=== PATIENT | male | born 1930 | race Caucasian/White ===

== ENCOUNTER 2016-03-14 11:58 | Inpatient (IN) | payer OTHER, MEDICARE ==
[~2016-03-14] VITALS: Ht 182.9 cm; Wt 80.0 kg
[~2016-03-14 11:58] MED LIST: ASPCH81X PO; CPR250 PO; DTR5 PO; FLM4 PO; FLUO20CA36 PO; GLIP10TA10 PO; LOSA1TAB PO; METO50TA16 PO; PANT40TA PO; PHEN-1043 PO; PRS5 PO; PRVC/40 PO; RMRS/45 PO; VITAMIN B12 SC
[2016-03-14 12:55] LABS: BASO % 0.1 %; BASO ABS # 0.01 K/uL (0-0.2); COMPLETE YES; EOS % 0.2 %; HEMATOCRIT 31.9 % (42-52); IG% 0.5 %; LYMPH % 8.6 %; LYMPH ABS # 0.84 K/uL (1.2-3.4); MEAN CELL VOLUME 88.6 fL (80-100); MEAN CORPUSCULAR HGB CONC 33.9 g/dl (32-36); MEAN PLATELET VOLUME 11.7 fL (7.4-10.4); MONO % 7.3 %; NEUT % 83.3 %; PLATELET COUNT 127 K/uL (130-400)
[2016-03-14] MEDS ORDERED: SODIUM CHLORIDE 0.9% 1000ML 1,000 ML IV ONE (12:59)
[2016-03-14] MEDS ORDERED: LEVAQUIN 750MG / 150ML D5W IV STA (12:59)
[2016-03-14] MEDS ORDERED: SODIUM CHLORIDE 0.9% 1000ML 1,000 ML IV STA (12:59)
[2016-03-14 13:18] LABS: BUN/CREATININE RATIO 21.2 (10-20); CALCIUM 8.3 mg/dl (8.5-10.1); CREATININE 2.5 mg/dl (0.60-1.40)
--- NOTE | 2016-03-14 13:19 | DIAGNOSTIC IMAGING REPORT ---
SINGLE VIEW CHEST CLINICAL HISTORY: Generalized weakness. Illness. FINDINGS: An AP, portable, upright chest radiograph is compared to study dated 02/26/2016. The examination is degraded by portable technique and patient rotation. The patient is status post midline sternotomy. The heart is enlarged and there is atherosclerotic calcification of the thoracic aorta. The pulmonary vasculature is noncongested. Emphysema is again suspected. No airspace consolidation, pleural effusion, or pneumothorax is seen. The bony thorax is grossly intact. IMPRESSION: Cardiac enlargement with no acute cardiopulmonary abnormality. Electronically signed by: Billy Palacio M.D. 03/14/2016 1:16 PM
[2016-03-14 13:28] LABS: ALB/GLOB RATIO 0.7 (0.9-2); CKMB/CK RATIO 1.6 (0-3.0); THYROID STIMULATING HORMONE 1.02 uIu/ml (0.300-4.500)
[2016-03-14] MEDS ORDERED: THIA100T11 PO (13:49)
--- NOTE | 2016-03-14 14:30 | DIAGNOSTIC IMAGING REPORT ---
CT SCAN OF THE ABDOMEN AND PELVIS WITHOUT IV CONTRAST CLINICAL HISTORY: Flank pain. COMPARISON STUDY: Abdominal CT dated 02/25/2016 and 02/21/2015. TECHNIQUE: CT scan of the abdomen and pelvis is performed from the lung bases to the proximal femora. Images are reviewed in the axial, sagittal, and coronal planes. IV contrast was not administered for this examination as per the referring clinician. Oral contrast was utilized. Automated dose control exposure was utilized. CT DOSE: 1198.01 mGy.cm FINDINGS: Lung bases: Midline sternotomy wires are noted. The heart is top normal in size and without pericardial effusion. The coronary arteries are densely calcified. There is diminished attenuation of the cardiac blood pool as compared to the myocardium suggesting anemia. There is dependent atelectasis. Chronic interstitial changes are present the lung bases. There is no airspace consolidation seen typical for pneumonia or pleural effusion. There is a small hiatal hernia. Liver: The unenhanced liver is enlarged, measuring 20.5 cm in length. The liver is otherwise normal in contour and attenuation. There is no intrahepatic biliary ductal dilatation. Gallbladder: Unremarkable. Spleen: Normal in size and attenuation. Pancreas: The unenhanced pancreas is moderately atrophic and grossly unremarkable. Adrenal glands: Unremarkable. Kidneys: The unenhanced kidneys are atrophic. A left ureteral stent is new from previous and in appropriate position. No left ureteral calculi are identified along the course of the stent. The previously obstructing 1.6 cm calculus has been pushed back into the left renal pelvis and is seen on axial image #194. There is moderate left hydroureteronephrosis. This has minimally decreased from 02/25/2016. There are at least 7 additional nonobstructing left renal calculi measuring up to 8 mm. There is mild to moderate right hydroureteronephrosis, new from 02/25/2016. The distal right ureteral calculi seen on the prior examination are no longer present. There are at least 6 additional nonobstructing right renal calculi measuring up to 5 mm. A 5.4 cm exophytic cyst arises from the upper pole of the right kidney. Urothelial thickening within the renal pelvis bilaterally is nonspecific and may be related to instrumentation/an indwelling catheter on the left. Abdominal vasculature: The abdominal aorta is normal in course and caliber noting advanced atherosclerotic calcification. Bowel: The small bowel and colon are normal in course and caliber. There is moderate colonic diverticulosis without CT evidence of acute diverticulitis. The appendix is not identified and reported surgically absent. Peritoneum: There is no intraperitoneal free air or abdominal ascites. There is a small fat-containing umbilical hernia. Lymphadenopathy: None. Pelvic viscera: The prostate gland is enlarged and heterogeneous, measuring up to 5.8 cm in transverse diameter. There is median lobe hypertrophy. The bladder is normal as visualized. No bladder calculi are identified. There is a moderate fat-containing left inguinal hernia. Skeletal structures: The skeletal structures are osteopenic. There is moderate lumbosacral spondylosis as well as mild scoliosis. Degenerative changes also seen in the sacroiliac joints. Anterolisthesis is present at L4-L5. No lytic or blastic lesions are seen. IMPRESSION: 1. A left ureteral stent is new from previous and in appropriate position. No calculi are identified along the course of the stent. 2. The 1.6 cm obstructing calculus seen in the left proximal ureter on 02/25/2016 has been pushed back into the left renal pelvis. Additional nonobstructing left renal calculi have not significantly changed. 3. There is moderate left hydroureteronephrosis, modestly improved from 02/25/2016. Correlate clinically for evidence of stent dysfunction. 4. There is mild to moderate right hydroureteronephrosis, new from the 02/25/2016 examination. Distal right ureteral calculi seen previously are no longer present. Hydronephrosis may be related to ureteral edema/stricture post procedure. Clinical correlation will be required. 5. Additional bilateral nonobstructing right renal calculi are grossly unchanged. 6. Prostatomegaly. The bladder is normal as visualized and no bladder calculi are identified. 7. Moderate colonic diverticulosis without CT evidence of acute diverticulitis. 8. Additional changes as above. Electronically signed by: Billy Palacio M.D. 03/14/2016 2:28 PM
[2016-03-14 14:55] LABS: URINE APPEARANCE CLOUDY (CLEAR); URINE BILIRUBIN NEG (NEG); URINE COLOR YELLOW; URINE NITRITE POS (NEG); URINE PH 5.5 (4.5-7.5); URINE SPECIFIC GRAVITY 1.005 (1.000-1.030); UROBILINOGEN NEG (NEG); ZZUR CULT IF INDIC CLEAN CATCH YES
[2016-03-14 14:58] LABS: MANUAL MICROSCOPIC REQUIRED? NO; REVIEW REQ? NO
[2016-03-14] MEDS ORDERED: MAGNESIUM HYDROXIDE SUSP 30 ML UDC PO PRN (15:15)
[2016-03-14] MEDS ORDERED: DEXTROSE 50% 50 ML SYR IV PRN (15:45)
[2016-03-14] MEDS ORDERED: GLUCOSE 40% GEL 15 GM TUBE PO PRN (15:45)
[2016-03-14] MEDS ORDERED: GLUCOSE 10 TABS/TUBE PO PRN (15:45)
[2016-03-14] MEDS ORDERED: GLUCAGON FOR INJ 1 MG VIAL SQ PRN (15:45)
--- NOTE | 2016-03-14 16:17 | History and Physical ---
History & Physical Date & Time of Service: Mar 14, 2016 at 15:35 Chief Complaint: General Illness Primary Care Physician: Vinh Montano D.O. History of Present Illness This is an 86 yo m with a h/o nephrolithiasis resulting in LA that is presenting to us with generalized weakness and dehydration. He notes that just after [place] he started to feel 'off" and generally feeling dehydrated. He does not feel like he had any change in appetite or the amount he was drinking. He also notes a sense of uneasiness. He mentions he had fallen onto his knees two days ago and instead of trying to get up, instead lay on the floor and fell asleep. He did not injury his head at any time. Today, he denies any N&V and mentions that his lethargy seems improved since receiving fluids. He was recently admitted to [facility] for La in the presence of nephrolithiasis and hydronephrosis. Bilateral urethral stents were placed during the admission. Since this scope and stent placement he has had significant worsening of his incontinence and painful urination. He notes he did have BL incontinence however it is now it is more constant. No hematuria that he could note. During the admission he was treated with Cipro and d/c with Flomax. He has been compliant with the flomax. Dr Eubanks was called while he was in the ED and plan is to scope in the am. He was originally admitted in Dec with a Cr of 2.9 which improved to a 2.1. On this admission he currently has a Cr of 2.5 He has a past medical history which also include a triple bypass (last stress echo in summer 2015, presumed normal, done with [facility]). He also has a h/o of DM not insulin controlled. 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 Daughter is available however she is a film processor and is not home very often. Past Medical/Surgical History Medical Problems: (1) Coronary artery disease Status: Chronic (2) Diabetes Status: Chronic (3) Hypertension Status: Chronic Surgical Problems: (1) S/P CABG (coronary artery bypass graft) Status: Resolved Family History Myocardial infarction FATHER MOTHER No Family History of: Kidney stones Social History Smoking Status: Former Smoker (quit 20 years prior) Smokeless Tobacco Use: No Alcohol Use: none Drug Use: none Marital Status: Housing status: lives with family Occupational Status: retired Immunizations History of Influenza Vaccine: Yes History of Tetanus Vaccine?: No History of Pneumococcal: Yes History of Hepatitis B Vaccine: No Multi-Drug Resistant Organisms History of MDRO: No Allergies Coded Allergies: Penicillins (Verified Allergy, Mild, MARGINAL, 02/26/16) MARGINAL Home Medications Scheduled Aspirin (Aspirin Chewable), 81 MG PO QAM Fluoxetine HCl (Fluoxetine HCl), 40 MG PO DAILY Glipizide (Glipizide), 10 MG PO QAM Losartan Potassium (Cozaar), 25 MG PO QPM Metoprolol Tartrate (Lopressor) (Lopressor), 0.5 TAB PO Q2D Metoprolol Tartrate (Lopressor) (Lopressor), 0.25 MG PO Q2D Mirtazapine (Mirtazapine), 45 MG PO HS Pantoprazole (Protonix), 40 MG PO QAM Pravastatin Sod (Pravastatin Sodium), 1 TAB PO QPM Tamsulosin HCl (Tamsulosin HCl), 0.4 MG PO BID Thiamine Hcl (Vitamin B-1), 1 TAB PO DAILY Review of Systems Constitutional: No fever Eyes: No worsening of vision ENT: + hearing loss (BL [place]) Respiratory: No cough, No dyspnea on exertion, No shortness of breath Cardiovascular: No chest pain Abdomen: No constipation, No diarrhea, No nausea, No pain, No vomiting Musculoskeletal: No joint pain, No muscle pain Genitourinary - Male: + dysuria, + urinary frequency, + urinary incontinence, No hematuria Neurologic: + weakness, No memory loss Endocrine: + fatigue Integumentary: No rash Physical Exam Vital Signs Date Time Temp Pulse Resp B/P Pulse Ox O2 Delivery O2 Flow Rate FiO2 03/14/16 14:37 77 18 145/71 98 Room Air 03/14/16 14:06 76 18 125/61 96 Room Air 03/14/16 13:42 78 18 121/61 96 Room Air 03/14/16 13:06 77 18 114/62 96 Room Air 03/14/16 12:35 83 18 125/62 96 Room Air 03/14/16 12:28 81 03/14/16 12:09 97 Room Air 03/14/16 12:03 37.8 83 18 114/58 97 Room Air General Appearance: WD/WN, no apparent distress Head: normocephalic, atraumatic Eyes: normal inspection ENT: normal ENT inspection Neck: supple Respiratory/Chest: lungs clear, normal breath sounds, no respiratory distress, no accessory muscle use Cardiovascular: regular rate, rhythm, no murmur Abdomen/GI: normal bowel sounds, non tender, soft, + distended Back: normal inspection, no CVA tenderness Extremities/Musculoskelatal: no calf tenderness, no pedal edema Neurologic/Psych: alert, normal mood/affect, oriented x 3 Skin: normal color, warm/dry, no rash Lymphatic: no adenopathy Diagnostics Laboratory Results Results Past 24 Hours Test 03/14/16 12:36 03/14/16 13:16 03/14/16 13:44 03/14/16 14:04 Range/Units White Blood Count 9.80 4.8-10.8 K/uL Red Blood Count 3.60 4.7-6.1 M/uL Hemoglobin 10.8 14.0-18.0 g/dL Hematocrit 31.9 42-52 % Mean Corpuscular Volume 88.6 80-100 fL Mean Corpuscular Hemoglobin 30.0 25-34 pg Mean Corpuscular Hemoglobin Concent 33.9 32-36 g/dl Platelet Count 127 130-400 K/uL Mean Platelet Volume 11.7 7.4-10.4 fL Neutrophils (%) (Auto) 83.3 % Lymphocytes (%) (Auto) 8.6 % Monocytes (%) (Auto) 7.3 % Eosinophils (%) (Auto) 0.2 % Basophils (%) (Auto) 0.1 % Neutrophils # (Auto) 8.16 1.4-6.5 K/uL Lymphocytes # (Auto) 0.84 1.2-3.4 K/uL Monocytes # (Auto) 0.72 0.11-0.59 K/uL Eosinophils # (Auto) 0.02 0-0.5 K/uL Basophils # (Auto) 0.01 0-0.2 K/uL RDW Standard Deviation 45.9 36.4-46.3 fL RDW Coefficient of Variation 14.1 11.5-14.5 % Immature Granulocyte % (Auto) 0.5 % Immature Granulocyte # (Auto) 0.05 0.00-0.02 K/uL Sodium Level 134 136-145 mmol/L Potassium Level 4.0 3.5-5.1 mmol/L Chloride Level 101 98-107 mmol/L Carbon Dioxide Level 22 21-32 mmol/L Anion Gap 11.0 3-11 mmol/L Blood Urea Nitrogen 53 7-18 mg/dl Creatinine 2.50 0.60-1.40 mg/dl Est Creatinine Clear Calc Drug Dose 24.1 ml/min Estimated GFR () 26.3 Estimated GFR (Non- 22.7 BUN/Creatinine Ratio 21.2 10-20 Random Glucose 227 70-99 mg/dl Calcium Level 8.3 8.5-10.1 mg/dl Total Bilirubin 0.5 0.2-1 mg/dl Aspartate Amino Transf (AST/SGOT) 86 15-37 U/L Alanine Aminotransferase (ALT/SGPT) 43 12-78 U/L Alkaline Phosphatase 70 45-117 U/L Total Creatine Kinase 140 39-308 U/L Creatine Kinase MB 2.3 0.5-3.6 ng/ml Creatine Kinase MB Ratio 1.6 0-3.0 Troponin I 0.015 0-0.045 ng/ml Total Protein 6.1 6.4-8.2 gm/dl Albumin 2.5 3.4-5.0 gm/dl Globulin 3.6 2.5-4.0 gm/dl Albumin/Globulin Ratio 0.7 0.9-2 Thyroid Stimulating Hormone (TSH) 1.020 0.300-4.500 uIu/ml Influenza Type A Antigen Neg for Influ A NEG Influenza Type B Antigen Neg for Influ B NEG Carboxyhemoglobin 4.3 % THgb Lactic Acid Level 0.9 0.4-2.0 mmol/L Test 03/14/16 14:30 Range/Units Urine Color YELLOW Urine Appearance CLOUDY CLEAR Urine pH 5.5 4.5-7.5 Urine Specific [place] 1.005 1.000-1.030 Urine Protein 1+ NEG Urine Glucose (UA) NEG NEG Urine Ketones NEG NEG Urine Occult Blood 3+ NEG Urine Nitrite POS NEG Urine Bilirubin NEG NEG Urine Urobilinogen NEG NEG Urine Leukocyte Esterase LARGE NEG Urine WBC (Auto) >30 0-5 /hpf Urine RBC (Auto) 0-4 0-4 /hpf Urine Hyaline Casts (Auto) 1-5 0-5 /lpf Urine Epithelial Cells (Auto) 5-10 0-5 /lpf Urine Bacteria (Auto) 4+ NEG Microbiology Results 1/2/17 Blood Culture, Received Pending 03/14/16 Blood Culture, Received Pending 03/14/16 Urine Culture, Received Pending Diagnostic Radiology CT SCAN OF THE ABDOMEN AND PELVIS WITHOUT IV CONTRAST CLINICAL HISTORY: Flank pain. COMPARISON STUDY: Abdominal CT dated 02/25/2016 and 02/21/2015. TECHNIQUE: CT scan of the abdomen and pelvis is performed from the lung bases to the proximal femora. Images are reviewed in the axial, sagittal, and coronal planes. IV contrast was not administered for this examination as per the referring clinician. Oral contrast was utilized. Automated dose control exposure was utilized. CT DOSE: 1198.01 mGy.cm FINDINGS: Lung bases: Midline sternotomy wires are noted. The heart is top normal in size and without pericardial effusion. The coronary arteries are densely calcified. There is diminished attenuation of the cardiac blood pool as compared to the myocardium suggesting anemia. There is dependent atelectasis. Chronic interstitial changes are present the lung bases. There is no airspace consolidation seen typical for pneumonia or pleural effusion. There is a small hiatal hernia. Liver: The unenhanced liver is enlarged, measuring 20.5 cm in length. The liver is otherwise normal in contour and attenuation. There is no intrahepatic biliary ductal dilatation. Gallbladder: Unremarkable. Spleen: Normal in size and attenuation. Pancreas: The unenhanced pancreas is moderately atrophic and grossly unremarkable. Adrenal glands: Unremarkable. Kidneys: The unenhanced kidneys are atrophic. A left ureteral stent is new from previous and in appropriate position. No left ureteral calculi are identified along the course of the stent. The previously obstructing 1.6 cm calculus has been pushed back into the left renal pelvis and is seen on axial image #194. There is moderate left hydroureteronephrosis. This has minimally decreased from 02/25/2016. There are at least 7 additional nonobstructing left renal calculi measuring up to 8 mm. There is mild to moderate right hydroureteronephrosis, new from 02/25/2016. The distal right ureteral calculi seen on the prior examination are no longer present. There are at least 6 additional nonobstructing right renal calculi measuring up to 5 mm. A 5.4 cm exophytic cyst arises from the upper pole of the right kidney. Urothelial thickening within the renal pelvis bilaterally is nonspecific and may be related to instrumentation/an indwelling catheter on the left. Abdominal vasculature: The abdominal aorta is normal in course and caliber noting advanced atherosclerotic calcification. Bowel: The small bowel and colon are normal in course and caliber. There is moderate colonic diverticulosis without CT evidence of acute diverticulitis. The appendix is not identified and reported surgically absent. Peritoneum: There is no intraperitoneal free air or abdominal ascites. There is a small fat-containing umbilical hernia. Lymphadenopathy: None. Pelvic viscera: The prostate gland is enlarged and heterogeneous, measuring up to 5.8 cm in transverse diameter. There is median lobe hypertrophy. The bladder is normal as visualized. No bladder calculi are identified. There is a moderate fat-containing left inguinal hernia. Skeletal structures: The skeletal structures are osteopenic. There is moderate lumbosacral spondylosis as well as mild scoliosis. Degenerative changes also seen in the sacroiliac joints. Anterolisthesis is present at L4-L5. No lytic or blastic lesions are seen. IMPRESSION: 1. A left ureteral stent is new from previous and in appropriate position. No calculi are identified along the course of the stent. 2. The 1.6 cm obstructing calculus seen in the left proximal ureter on 02/25/2016 has been pushed back into the left renal pelvis. Additional nonobstructing left renal calculi have not significantly changed. 3. There is moderate left hydroureteronephrosis, modestly improved from 02/25/2016. Correlate clinically for evidence of stent dysfunction. 4. There is mild to moderate right hydroureteronephrosis, new from the 02/25/2016 examination. Distal right ureteral calculi seen previously are no longer present. Hydronephrosis may be related to ureteral edema/stricture post procedure. Clinical correlation will be required. 5. Additional bilateral nonobstructing right renal calculi are grossly unchanged. 6. Prostatomegaly. The bladder is normal as visualized and no bladder calculi are identified. 7. Moderate colonic diverticulosis without CT evidence of acute diverticulitis. 8. Additional changes as above. SINGLE VIEW CHEST CLINICAL HISTORY: Generalized weakness. Illness. FINDINGS: An AP, portable, upright chest radiograph is compared to study dated 02/26/2016. The examination is degraded by portable technique and patient rotation. The patient is status post midline sternotomy. The heart is enlarged and there is atherosclerotic calcification of the thoracic aorta. The pulmonary vasculature is noncongested. Emphysema is again suspected. No airspace consolidation, pleural effusion, or pneumothorax is seen. The bony thorax is grossly intact. IMPRESSION: Cardiac enlargement with no acute cardiopulmonary abnormality. EKG NSR 79 bpm no ectopic beats noted P mitrale is noted no ischemic changes no significant change from EKG on Feb 24 Impression Assessment and Plan This is an 86 yo m that is suffering from LA on CKD in the presence of worsening hydronephrosis with nephrolithiasis. Concern for infection in the urinary tract considering symptoms however considering his recent admission, recent use of Cipro, allergy to PCN (hives) will use Aztreonam and Vanco LA on CKD III most likely secondary to dehydration and worsening hydronephrosis - Admission to Telemetry - Urology aware, plan is for scope in the am - NSS @ 125 cc/ h - did receive a bolus in the ED - Recheck BMP in the am - continue flomax - losartan held for now - ASA held - NPO after midnight UTI- complicated reflected by abnormal UA and imaging - Vanco and Aztreonam - Continue to monitor kidney function - blood cultures pending - UCx pending Hyponatremia most likely secondary to dehydration - Continue fluids - recheck BMP in the am BPH - continue flomax CAD - I&O and daily weights - cont home meds Hypercholesterolemia - continue pravastatin Hypertension - cont home meds except losartan - monitor vitals DMII - glipizide held - ISS initiated DVT prophylaxis - SCD as procedure tomorrow FULL CODE Level of Care Med/Surg Resuscitation Status FULL RESUSCITATION VTE Prophylaxis VTE Risk Assessment Done? Y/N: Yes Risk Level: Moderate Given or contraindicated: SCD's Social Service Consult None Apply Note Total Time: Critical Care 30 - 74 minutes Additional Copies To Vinh Montano D.O. Assessment and Plan ATTENDING ADDENDUM: I have seen and examined this patient, have directed their medical care, and agree with the H&P as noted above. Patient has had symptoms of chills and rigors over the past 48 hours. He has known history of kidney stones, has a left ureteral stent in place, and has imaging which has shown stabilization of left hydronephrosis, but the worsening right hydronephrosis. His urologist Dr. Eubanks was contacted over the phone by emergency personnel, and he is asked the patient is admitted to the medical service consult urology for procedure in the a.m. The patient denies chest pain, palpitations, shortness of breath, cough, lower extremity swelling, vision change, hearing change, sore throat, sweats, weight change, nausea, vomiting, blood in urine or stool, dysuria, urinary frequency or urgency, headache, memory loss, rash, abnormal bruising or bleeding, imbalance, focal or generalized weakness, numbness or tingling in arms or legs, arthralgias or myalgias, back or neck pain, night sweats, or allergy symptoms. The review of systems is otherwise negative other than for that already noted above, and at least 10 systems have been reviewed. The patient is awake, well-developed and adequately nourished, alert and oriented 3, normocephalic and atraumatic, lying in bed and in no acute distress. HEENT--PERRL, EOMI, mucous membranes and oropharynx dry. Neck--supple, no JVD or bruits, thyroid normal, trachea midline, no adenopathy. Heart--normal S1 and S2, no extra beats, no murmurs, rubs or gallops. Lungs--clear bilaterally with good air movement, no respiratory distress, no accessory muscle use. Abdomen--normal bowel sounds and soft, nontender and nondistended, no hernias or masses, no organomegaly. Extremities--no cyanosis, clubbing or edema. There are good distal pulses b/l. Dermatologic--normal skin turgor, normal color, warm and dry, no abnormal lymph nodes, no rash. Neurologic--cranial nerves II through XII grossly intact. Rheumatologic--normal range of motion, nontender, muscles and joints. Psychiatric--normal affect. Assessment plan: Patient will be admitted to the medical surgical floor. He'll be kept nothing by mouth after midnight, possible procedure tomorrow by urology. He will be placed on aztreonam IV per renal dosing, as he is allergic to penicillins, and has had previous treatments with fluoroquinolones. Placed on normal saline with potassium chloride 20 mEq 100 mils per hour, Zofran 4 mg IV every 6 hours when necessary, pantoprazole 40 mg IV daily. We' ll follow urine culture and sensitivity results.
[2016-03-14 17:06] VITALS: BP 158/78; PULSE 81; TEMP 36.3; O2SAT 99
[2016-03-14] MEDS ORDERED: VANCOMYCIN CONSULT ACTIVE PRN (17:15)
[2016-03-14 17:16] VITALS: Ht 182.9 cm; Wt 80.0 kg
[2016-03-14] MEDS: INSULIN ASPART 100 UNITS/ML 3 ML PEN SC SCH ×3 (17:30→22:32)
[2016-03-14] MEDS ORDERED: AZTREONAM 2000 MG in DEXTROSE 5% 100 ML IV ONE (17:30)
[2016-03-14] MEDS ORDERED: VANCOMYCIN INJ 1,700 MG in SODIUM CHLORIDE 0.9% 500ML 500 ML IV ONE (17:45)
[2016-03-14] MEDS: SODIUM CHLORIDE 0.9% 1000ML 1,000 ML IV SCH (18:10)
--- NOTE | 2016-03-14 19:07 | EMERGENCY ROOM VISIT NOTE ---
History Report prepared by Rajiv: Geovanna Cornejo Under the Supervision of: Dr. Evan Knowles M.D. First contact with patient: 12:55 Chief Complaint: OTHER COMPLAINT Stated Complaint: general illness History of Present Illness The patient is a 86 year old male who presents to the Emergency Room with complaints of worsening weakness for the past couple of weeks. He states that he is feeling fatigued and weak. His daughter noticed that this seemed to be worse than usual and brought the patient to the ED for further evaluation. 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 He states that he just falls asleep while he is sitting at the dining room table doing work. He has been experiencing low-grade fevers, chills, headache, and swelling to his legs. The patient rates his pain as a 3/ 10. He has not been taking his usual medications because he has been taking care of his and their dog. He denies cough, abdominal pain, hematuria, chest pain, and cough. He notes that he falls frequently but denies any recent injury from falling. He is scheduled for a lithotripsy in 4 days and has a stent and catheter in place at this time. He denies any new urinary symptoms. The patient has oil heat at home. He does not have any functioning carbon monoxide detectors. Source of History: patient, family Onset: a couple of weeks ago Position: other (global) Symptom Intensity: 3/10 Quality: other (weakness) Timing: worsening Modifying Factors (Worsening): other (not taking medications) Associated Symptoms: + chills, + fatigue, + fevers, + headache, No abdominal pain, No chest pain, No cough, No urinary symptoms Review of Systems See HPI for pertinent positives & negatives. A total of 10 systems reviewed and were otherwise negative. Past Medical & Surgical Medical Problems: (1) Coronary artery disease (2) Diabetes (3) Hydronephrosis (4) Hypertension (5) SIRS (systemic inflammatory response syndrome) Surgical Problems: (1) S/P CABG (coronary artery bypass graft) Old medical records were reviewed. Nurse's notes were reviewed and I agree with. History of bilateral kidney stones. He recently had stent placed on both sides and the right one was removed with the left remains Family History Omitted secondary to age Social History Smoking Status: Former Smoker Drug Use: none Marital Status: Housing Status: lives with family Occupation Status: retired Current/Historical Medications Scheduled Aspirin (Aspirin Chewable), 81 MG PO QAM Fluoxetine HCl (Fluoxetine HCl), 40 MG PO DAILY Glipizide (Glipizide), 10 MG PO QAM Losartan Potassium (Cozaar), 25 MG PO QPM Metoprolol Tartrate (Lopressor) (Lopressor), 0.5 TAB PO Q2D Metoprolol Tartrate (Lopressor) (Lopressor), 0.25 MG PO Q2D Mirtazapine (Mirtazapine), 45 MG PO HS Pantoprazole (Protonix), 40 MG PO QAM Pravastatin Sod (Pravastatin Sodium), 1 TAB PO QPM Tamsulosin HCl (Tamsulosin HCl), 0.4 MG PO BID Thiamine Hcl (Vitamin B-1), 1 TAB PO DAILY Allergies Coded Allergies: Penicillins (Verified Allergy, Mild, MARGINAL, 02/26/16) MARGINAL Physical Exam Vital Signs Date Time Temp Pulse Resp B/P Pulse Ox O2 Delivery O2 Flow Rate FiO2 03/14/16 14:37 77 18 145/71 98 Room Air 03/14/16 14:06 76 18 125/61 96 Room Air 03/14/16 13:42 78 18 121/61 96 Room Air 03/14/16 13:06 77 18 114/62 96 Room Air 03/14/16 12:35 83 18 125/62 96 Room Air 03/14/16 12:28 81 03/14/16 12:09 97 Room Air 03/14/16 12:03 37.8 83 18 114/58 97 Room Air Physical Exam General: Well developed well nourished non-ill appearing older male in no acute distress, breathing comfortably on room air. Normal speech HEENT: Normal cephalic atraumatic. Pupils are equal round and reactive to light. Extraocular movements are intact. Oropharynx is pink with moist mucous membranes. No swelling of the mouth lips or tongue. Neck: Supple with a midline trachea. No meningeal signs or stiffness, no JVD or bruits. No Stridor. Chest: Clear to auscultation bilaterally. No wheezes or rhonchi. No increased work of breathing. Heart: regular rate and rhythm. Abdomen: Soft nontender, nondistended without rebound guarding or rigidity. Extremities: Trace pedal edema bilaterally. No cyanosis or clubbing. No calf tenderness or assymetry Spine/Back. Non tender to palpation. No CVA tenderness Skin: Good turgor without rashes. Neurologic exam: Cranial nerves two through 12 are intact. Motor and sensation are intact and symmetrical throughout. Medical Decision & Procedures ER Provider Diagnostic Interpretation: Radiology results as stated below per my review and radiologist interpretation: SINGLE VIEW CHEST CLINICAL HISTORY: Generalized weakness. Illness. FINDINGS: An AP, portable, upright chest radiograph is compared to study dated 02/26/2016. The examination is degraded by portable technique and patient rotation. The patient is status post midline sternotomy. The heart is enlarged and there is atherosclerotic calcification of the thoracic aorta. The pulmonary vasculature is noncongested. Emphysema is again suspected. No airspace consolidation, pleural effusion, or pneumothorax is seen. The bony thorax is grossly intact. IMPRESSION: Cardiac enlargement with no acute cardiopulmonary abnormality. Electronically signed by: Billy Palacio M.D. 03/14/2016 1:[address] SCAN OF THE ABDOMEN AND PELVIS WITHOUT IV CONTRAST CLINICAL HISTORY: Flank pain. COMPARISON STUDY: Abdominal CT dated 02/25/2016 and 02/21/2015. TECHNIQUE: CT scan of the abdomen and pelvis is performed from the lung bases to the proximal femora. Images are reviewed in the axial, sagittal, and coronal planes. IV contrast was not administered for this examination as per the referring clinician. Oral contrast was utilized. Automated dose control exposure was utilized. CT DOSE: 1198.01 mGy.cm FINDINGS: Lung bases: Midline sternotomy wires are noted. The heart is top normal in size and without pericardial effusion. The coronary arteries are densely calcified. There is diminished attenuation of the cardiac blood pool as compared to the myocardium suggesting anemia. There is dependent atelectasis. Chronic interstitial changes are present the lung bases. There is no airspace consolidation seen typical for pneumonia or pleural effusion. There is a small hiatal hernia. Liver: The unenhanced liver is enlarged, measuring 20.5 cm in length. The liver is otherwise normal in contour and attenuation. There is no intrahepatic biliary ductal dilatation. Gallbladder: Unremarkable. Spleen: Normal in size and attenuation. Pancreas: The unenhanced pancreas is moderately atrophic and grossly unremarkable. Adrenal glands: Unremarkable. Kidneys: The unenhanced kidneys are atrophic. A left ureteral stent is new from previous and in appropriate position. No left ureteral calculi are identified along the course of the stent. The previously obstructing 1.6 cm calculus has been pushed back into the left renal pelvis and is seen on axial image #194. There is moderate left hydroureteronephrosis. This has minimally decreased from 02/25/2016. There are at least 7 additional nonobstructing left renal calculi measuring up to 8 mm. There is mild to moderate right hydroureteronephrosis, new from 02/25/2016. The distal right ureteral calculi seen on the prior examination are no longer present. There are at least 6 additional nonobstructing right renal calculi measuring up to 5 mm. A 5.4 cm exophytic cyst arises from the upper pole of the right kidney. Urothelial thickening within the renal pelvis bilaterally is nonspecific and may be related to instrumentation/an indwelling catheter on the left. Abdominal vasculature: The abdominal aorta is normal in course and caliber noting advanced atherosclerotic calcification. Bowel: The small bowel and colon are normal in course and caliber. There is moderate colonic diverticulosis without CT evidence of acute diverticulitis. The appendix is not identified and reported surgically absent. Peritoneum: There is no intraperitoneal free air or abdominal ascites. There is a small fat-containing umbilical hernia. Lymphadenopathy: None. Pelvic viscera: The prostate gland is enlarged and heterogeneous, measuring up to 5.8 cm in transverse diameter. There is median lobe hypertrophy. The bladder is normal as visualized. No bladder calculi are identified. There is a moderate fat-containing left inguinal hernia. Skeletal structures: The skeletal structures are osteopenic. There is moderate lumbosacral spondylosis as well as mild scoliosis. Degenerative changes also seen in the sacroiliac joints. Anterolisthesis is present at L4-L5. No lytic or blastic lesions are seen. IMPRESSION: 1. A left ureteral stent is new from previous and in appropriate position. No calculi are identified along the course of the stent. 2. The 1.6 cm obstructing calculus seen in the left proximal ureter on 02/25/2016 has been pushed back into the left renal pelvis. Additional nonobstructing left renal calculi have not significantly changed. 3. There is moderate left hydroureteronephrosis, modestly improved from 02/25/2016. Correlate clinically for evidence of stent dysfunction. 4. There is mild to moderate right hydroureteronephrosis, new from the 02/25/2016 examination. Distal right ureteral calculi seen previously are no longer present. Hydronephrosis may be related to ureteral edema/stricture post procedure. Clinical correlation will be required. 5. Additional bilateral nonobstructing right renal calculi are grossly unchanged. 6. Prostatomegaly. The bladder is normal as visualized and no bladder calculi are identified. 7. Moderate colonic diverticulosis without CT evidence of acute diverticulitis. 8. Additional changes as above. Electronically signed by: Billy Palacio M.D. 03/14/2016 2:28 PM Laboratory Results 03/14/16 12:36 Red Blood Count 3.60, Mean Corpuscular Volume 88.6, Mean Corpuscular Hemoglobin 30.0, Mean Corpuscular Hemoglobin Concent 33.9, Mean Platelet Volume 11.7, Neutrophils (%) (Auto) 83.3, Lymphocytes (%) (Auto) 8.6, Monocytes (%) (Auto) 7.3, Eosinophils (%) (Auto) 0.2, Basophils (%) (Auto) 0.1, Neutrophils # (Auto) 8.16, Lymphocytes # (Auto) 0.84, Monocytes # (Auto) 0.72, Eosinophils # (Auto) 0.02, Basophils # (Auto) 0.01 03/14/16 12:36 Test 03/14/16 12:36 03/14/16 13:16 03/14/16 13:44 03/14/16 14:04 White Blood Count 9.80 K/uL (4.8-10.8) Red Blood Count 3.60 M/uL (4.7-6.1) Hemoglobin 10.8 g/dL (14.0-18.0) Hematocrit 31.9 % (42-52) Mean Corpuscular Volume 88.6 fL (80-100) Mean Corpuscular Hemoglobin 30.0 pg (25-34) Mean Corpuscular Hemoglobin Concent 33.9 g/dl (32-36) Platelet Count 127 K/uL (130-400) Mean Platelet Volume 11.7 fL (7.4-10.4) Neutrophils (%) (Auto) 83.3 % Lymphocytes (%) (Auto) 8.6 % Monocytes (%) (Auto) 7.3 % Eosinophils (%) (Auto) 0.2 % Basophils (%) (Auto) 0.1 % Neutrophils # (Auto) 8.16 K/uL (1.4-6.5) Lymphocytes # (Auto) 0.84 K/uL (1.2-3.4) Monocytes # (Auto) 0.72 K/uL (0.11-0.59) Eosinophils # (Auto) 0.02 K/uL (0-0.5) Basophils # (Auto) 0.01 K/uL (0-0.2) RDW Standard Deviation 45.9 fL (36.4-46.3) RDW Coefficient of Variation 14.1 % (11.5-14.5) Immature Granulocyte % (Auto) 0.5 % Immature Granulocyte # (Auto) 0.05 K/uL (0.00-0.02) Anion Gap 11.0 mmol/L (3-11) Est Creatinine Clear Calc Drug Dose 24.1 ml/min Estimated GFR () 26.3 Estimated GFR (Non- 22.7 BUN/Creatinine Ratio 21.2 (10-20) Calcium Level 8.3 mg/dl (8.5-10.1) Total Bilirubin 0.5 mg/dl (0.2-1) Aspartate Amino Transf (AST/SGOT) 86 U/L (15-37) Alanine Aminotransferase (ALT/SGPT) 43 U/L (12-78) Alkaline Phosphatase 70 U/L (45-117) Total Creatine Kinase 140 U/L (39-308) Creatine Kinase MB 2.3 ng/ml (0.5-3.6) Creatine Kinase MB Ratio 1.6 (0-3.0) Troponin I 0.015 ng/ml (0-0.045) Total Protein 6.1 gm/dl (6.4-8.2) Albumin 2.5 gm/dl (3.4-5.0) Globulin 3.6 gm/dl (2.5-4.0) Albumin/Globulin Ratio 0.7 (0.9-2) Thyroid Stimulating Hormone (TSH) 1.020 uIu/ml (0.300-4.500) Influenza Type A Antigen Neg for Influ A (NEG) Influenza Type B Antigen Neg for Influ B (NEG) Carboxyhemoglobin 4.3 % THgb Lactic Acid Level 0.9 mmol/L (0.4-2.0) Test 03/14/16 14:30 Urine Color YELLOW Urine Appearance CLOUDY (CLEAR) Urine pH 5.5 (4.5-7.5) Urine Specific [place] 1.005 (1.000-1.030) Urine Protein 1+ (NEG) Urine Glucose (UA) NEG (NEG) Urine Ketones NEG (NEG) Urine Occult Blood 3+ (NEG) Urine Nitrite POS (NEG) Urine Bilirubin NEG (NEG) Urine Urobilinogen NEG (NEG) Urine Leukocyte Esterase LARGE (NEG) Urine WBC (Auto) >30 /hpf (0-5) Urine RBC (Auto) 0-4 /hpf (0-4) Urine Hyaline Casts (Auto) 1-5 /lpf (0-5) Urine Epithelial Cells (Auto) 5-10 /lpf (0-5) Urine Bacteria (Auto) 4+ (NEG) Laboratory studies as stated above per my review. Medications Administered Medications (Trade) Dose Ordered Sig/[place] Route Start Time Stop Time Status Last Admin Dose Admin Sodium Chloride 1,000 ml @ 999 mls/hr Q1H1M STAT IV 03/14/16 12:59 03/14/16 13:59 DC 03/14/16 13:52 999 MLS/HR Sodium Chloride (Nss 1000ml) 1,000 ml @ 150 mls/hr Q6H40M ONCE IV 03/14/16 12:59 03/14/16 17:11 DC 03/14/16 13:53 150 MLS/HR Levofloxacin (Levaquin / D5w) 750 mg NOW STAT IV 03/14/16 12:59 03/14/16 13:05 DC 03/14/16 13:53 750 MG ECG Indication: weakness Rate (beats per minute): 79 Rhythm: normal sinus Findings: nonspecific-ST abn, no ectopy Comparison ECG Date: 02/25/16 Change: no significant change ED Course 1255: Past medical records reviewed. The patient was evaluated in room C6, and a complete history and physical examination were performed. 1259: Levofloxacin 750 mg IV, NSS 1000 ml @ 150 mls/hr IV, NSS 1000 ml @ 999 mls /hr IV 1401: I reassessed the patient at this time. He is resting comfortably. I discussed the results and treatment plan with the patient and his daughter. I answered all pertaining questions that they had. They expressed understanding and verbalized agreement. 1443: I spoke with Dr. Hayes. We discussed the patients results and treatment plan. The patient will be evaluated by the [facility] for further management. 1451: At this time I spoke with Dr. Eubanks of urology. He was made aware of the situation and does not feel that the patient needs and an acute stent. 1501: I updated the patient and his daughter. They are in agreement with the treatment plan. Medical Decision Differential diagnoses includes sepsis, UTI, dehydration, kidney stone, toxicologic process, thyroid disease, arrhythmia. This patient comes in as described above. He was placed in room C6. Here for treatment and evaluation of generalized weakness. He does not feel he is been taking care of himself because he's been try to take care of his and patent and had other responsibilities. He's not been taking his medications as directed he tells me including his antibiotics. He has a history of kidney stones and has recent stents on both sides although it presently is a left bunion. He has a low-grade temperature here. IV access established, blood work was obtained including blood cultures. He was hydrated with IV normal saline bolus. He was empirically given Levaquin 750 mg IV for likely urinary source. His BUN and creatinine are elevated compared to baseline with his BUN of 50 his creatinine is in the mid 2 range which it typically runs up and down. He has nothing to suggest pneumonia. His urinalysis does suggest a UTI. I did get a noncontrast abdominal CT and he has some evidence of urinary obstruction on both sides however the stones are absent on the right. Some of this may be postsurgical. I discuss case with Dr. Mango Eubanks, on-call urologist, who felt that he did not t need emergent stent now and they will see him in the hospital. He agrees with antibiotics and hydration. I did consult Dr. Presley, and the [facility] hospitalist team did see him in the ER will admit him for these measures. Family was happy with the plan. Consults Time Called: 1440 Consulting Physician: Dr. Hayes Returned Call: [address] Hayes. We discussed the patients results and treatment plan. The patient will be evaluated by the [facility] for further management. Additional Consults: Time Called: 1444 Consulted Physician: Dr. Eubanks Returned Call: [phone] Additional Comments: At this time I spoke with Dr. Eubanks of urology. He was made aware of the situation and does not feel that the patient needs and an acute stent. Impression Primary Impression: Sepsis Additional Impressions: Dehydration, Obstructive uropathy, UTI (urinary tract infection) Scribe Attestation The scribe's documentation has been prepared under my direction and personally reviewed by me in its entirety. I confirm that the note above accurately reflects all work, treatment, procedures, and medical decision making performed by me. Departure Information Dispostion Being Evaluated By Hospitalist Referrals Vinh Montano D.O. (PCP) Patient Instructions A Signature Page, My [facility]
--- NOTE | 2016-03-14 20:01 | Pharmacy Progress Note ---
Pharmacy Antibiotic Consult Date of Service: Mar 14, 2016. Pharmacy Dosing Scope Pharmacy is consulted to initiate vancomycin IV dosing therapy, order appropriate labs and adjust drug dose/frequency. Subjective The patient is a 86 year old male admitted on Mar 14, 2016 at 15:25 with a complicated UTI. He was recently admitted to the hospital and treated with ciprofloxacin. Objective Height (Feet): 6 Height (Inches): 0.00 Weight (Kilograms): 84.000 Lab Results (24hrs): Laboratory Tests Test 03/14/16 12:36 BUN/Creatinine Ratio 21.2 Blood Urea Nitrogen 53 mg/dl Creatinine 2.50 mg/dl White Blood Count 9.80 K/uL Red Blood Count 3.60 M/uL Hemoglobin 10.8 g/dL Hematocrit 31.9 % Mean Corpuscular Volume 88.6 fL Mean Corpuscular Hemoglobin 30.0 pg Mean Corpuscular Hemoglobin Concent 33.9 g/dl Platelet Count 127 K/uL Mean Platelet Volume 11.7 fL Neutrophils (%) (Auto) 83.3 % Lymphocytes (%) (Auto) 8.6 % Monocytes (%) (Auto) 7.3 % Eosinophils (%) (Auto) 0.2 % Basophils (%) (Auto) 0.1 % Neutrophils # (Auto) 8.16 K/uL Lymphocytes # (Auto) 0.84 K/uL Monocytes # (Auto) 0.72 K/uL Eosinophils # (Auto) 0.02 K/uL Basophils # (Auto) 0.01 K/uL Assessment & Plan Loading dose: vancomycin 1700 (20 mg/kg) mg IV X 1 dose then: Random level has been ordered for: . Pharmacy will continue to follow and will adjust dose/frequency as necessary. Thank you
[2016-03-14] MEDS: MIRTAZAPINE TAB 15 MG TAB PO SCH (22:25)
[2016-03-14] MEDS: PRAVASTATIN SOD 40 MG TAB PO SCH (22:25)
[2016-03-14] MEDS: TAMSULOSIN HCL 0.4 MG CAP PO SCH (22:26)
[2016-03-14] MEDS: METOPROLOL TARTRATE 25 MG TAB PO SCH (22:26)
[2016-03-14 22:45] VITALS: BP 125/62; PULSE 90; TEMP 38; O2SAT 97
[2016-03-15 00:05] VITALS: TEMP 37.3
[2016-03-15] MEDS: SODIUM CHLORIDE 0.9% 1000ML 1,000 ML IV SCH ×2 (00:11→08:27)
[2016-03-15] MEDS ORDERED: NURSING VERBAL MED ORDER ONE (02:15)
[2016-03-15] MEDS: AZTREONAM IV 1,000 MG in DEXTROSE 5% 100ML 100 ML IV SCH ×3 (02:20→18:17)
[2016-03-15] MEDS ORDERED: INSULIN ASPART 100 UNITS/ML 3 ML PEN SC SCH (06:00)
[2016-03-15] MEDS: ACETAMINOPHEN 500 MG TAB PO PRN ×2 (06:15→23:38)
[2016-03-15 07:31] LABS: HEMATOCRIT 29.7 % (42-52); MEAN CELL VOLUME 88.7 fL (80-100); MEAN CORPUSCULAR HEMOGLOBIN 29.6 pg (25-34); MEAN CORPUSCULAR HGB CONC 33.3 g/dl (32-36); MEAN PLATELET VOLUME 11.1 fL (7.4-10.4); PLATELET COUNT 118 K/uL (130-400); RED BLOOD COUNT 3.35 M/uL (4.7-6.1); WHITE BLOOD COUNT 7.86 K/uL (4.8-10.8)
[2016-03-15 07:57] VITALS: BP 143/67; PULSE 75; TEMP 36.9; O2SAT 95
[2016-03-15 07:58] LABS: BUN/CREATININE RATIO 20.7 (10-20); CALCIUM 8.2 mg/dl (8.5-10.1); CREATININE 2.1 mg/dl (0.60-1.40); POTASSIUM 3.7 mmol/L (3.5-5.1)
[2016-03-15] MEDS: TAMSULOSIN HCL 0.4 MG CAP PO SCH ×2 (08:30→20:27)
[2016-03-15] MEDS: THIAMINE HCL 100 MG TAB PO SCH (08:30)
[2016-03-15] MEDS: FLUOXETINE HCL 20 MG CAP PO SCH (08:31)
[2016-03-15] MEDS: PANTOprazole SOD 40 MG TAB PO SCH (08:31)
--- NOTE | 2016-03-15 10:18 | Urology Consultation ---
History General Date of Service: Mar 15, 2016. Chief Complaint: generalized weakness and fatigue Primary Care Physician: Vinh Montano D.O. Pt seen a urologist before?: Yes (Dr. Eubanks) If yes, why?: bilateral ureteral stones History of Present Illness 86 yo male presents to [facility] with c/o generalized weakness and fatigue. He is s/ p bilateral ureteral stent placement and right URS on 02-25 for bilateral ureteral stones. Right ureteral stent removed on 03-09. The pt reports developing fatigue, increased weakness, dry heaves, and dysuria over the past 1-2 days. He then came to [facility]. CT scan shows some mild right hydroureteronephrosis and left ureteral stent remains in good position. No ureteral stones visualized. Bladder appears distended. The pt was noted to have a fever of 38C earlier today. He is currently afebrile. Blood and urine cultures pending. UC&S preliminarily growing gram negative bacilli. White count is normal. Cr of 2.5 on admission. Improved to 2.1 this morning. Imaging Imaging: CT Laboratory Last 24 Hours Test 03/14/16 12:36 03/14/16 13:16 03/14/16 13:44 03/14/16 14:04 White Blood Count 9.80 K/uL Red Blood Count 3.60 M/uL Hemoglobin 10.8 g/dL Hematocrit 31.9 % Mean Corpuscular Volume 88.6 fL Mean Corpuscular Hemoglobin 30.0 pg Mean Corpuscular Hemoglobin Concent 33.9 g/dl Platelet Count 127 K/uL Mean Platelet Volume 11.7 fL Neutrophils (%) (Auto) 83.3 % Lymphocytes (%) (Auto) 8.6 % Monocytes (%) (Auto) 7.3 % Eosinophils (%) (Auto) 0.2 % Basophils (%) (Auto) 0.1 % Neutrophils # (Auto) 8.16 K/uL Lymphocytes # (Auto) 0.84 K/uL Monocytes # (Auto) 0.72 K/uL Eosinophils # (Auto) 0.02 K/uL Basophils # (Auto) 0.01 K/uL RDW Standard Deviation 45.9 fL RDW Coefficient of Variation 14.1 % Immature Granulocyte % (Auto) 0.5 % Immature Granulocyte # (Auto) 0.05 K/uL Sodium Level 134 mmol/L Potassium Level 4.0 mmol/L Chloride Level 101 mmol/L Carbon Dioxide Level 22 mmol/L Anion Gap 11.0 mmol/L Blood Urea Nitrogen 53 mg/dl Creatinine 2.50 mg/dl Est Creatinine Clear Calc Drug Dose 24.1 ml/min Estimated GFR () 26.3 Estimated GFR (Non- 22.7 BUN/Creatinine Ratio 21.2 Random Glucose 227 mg/dl Calcium Level 8.3 mg/dl Total Bilirubin 0.5 mg/dl Aspartate Amino Transf (AST/SGOT) 86 U/L Alanine Aminotransferase (ALT/SGPT) 43 U/L Alkaline Phosphatase 70 U/L Total Creatine Kinase 140 U/L Creatine Kinase MB 2.3 ng/ml Creatine Kinase MB Ratio 1.6 Troponin I 0.015 ng/ml Total Protein 6.1 gm/dl Albumin 2.5 gm/dl Globulin 3.6 gm/dl Albumin/Globulin Ratio 0.7 Thyroid Stimulating Hormone (TSH) 1.020 uIu/ml Influenza Type A Antigen Neg for Influ A Influenza Type B Antigen Neg for Influ B Carboxyhemoglobin 4.3 % THgb Lactic Acid Level 0.9 mmol/L Test 03/14/16 14:30 03/14/16 17:30 03/14/16 20:56 03/15/16 05:45 Urine Color YELLOW Urine Appearance CLOUDY Urine pH 5.5 Urine Specific [place] 1.005 Urine Protein 1+ Urine Glucose (UA) NEG Urine Ketones NEG Urine Occult Blood 3+ Urine Nitrite POS Urine Bilirubin NEG Urine Urobilinogen NEG Urine Leukocyte Esterase LARGE Urine WBC (Auto) >30 /hpf Urine RBC (Auto) 0-4 /hpf Urine Hyaline Casts (Auto) 1-5 /lpf Urine Epithelial Cells (Auto) 5-10 /lpf Urine Bacteria (Auto) 4+ Bedside Glucose 144 mg/dl 138 mg/dl 139 mg/dl Test 03/15/16 06:55 White Blood Count 7.86 K/uL Red Blood Count 3.35 M/uL Hemoglobin 9.9 g/dL Hematocrit 29.7 % Mean Corpuscular Volume 88.7 fL Mean Corpuscular Hemoglobin 29.6 pg Mean Corpuscular Hemoglobin Concent 33.3 g/dl RDW Standard Deviation 46.6 fL RDW Coefficient of Variation 14.3 % Platelet Count 118 K/uL Mean Platelet Volume 11.1 fL Sodium Level 140 mmol/L Potassium Level 3.7 mmol/L Chloride Level 108 mmol/L Carbon Dioxide Level 21 mmol/L Anion Gap 11.0 mmol/L Blood Urea Nitrogen 43 mg/dl Creatinine 2.10 mg/dl Est Creatinine Clear Calc Drug Dose 28.7 ml/min Estimated GFR () 32.5 Estimated GFR (Non- 28.1 BUN/Creatinine Ratio 20.7 Random Glucose 152 mg/dl Calcium Level 8.2 mg/dl Random Vancomycin Level 15.6 mcg/ml Problem List Medical Problems: (1) Acute renal failure Status: Acute (2) C1 cervical fracture Status: Acute (3) Dehydration Status: Acute (4) Elevated serum creatinine Status: Acute (5) Fatigue Status: Acute (6) General weakness Status: Acute (7) Obstructive uropathy Status: Acute (8) Odontoid fracture Status: Acute (9) Rectal bleeding Status: Acute (10) Scaphoid fracture Status: Acute (11) Sepsis Status: Acute (12) Urinary retention Status: Acute (13) UTI (urinary tract infection) Status: Acute Past History BPH, coronary artery disease, diabetes, hypertension, kidney stones Past Surgical History: coronary bypass surgery, lithotripsy, ureteral stent Family History Myocardial infarction FATHER MOTHER No Family History of: Kidney stones Social History Hx Tobacco Use In Past Year?: No Smoking: other (former smoker) Alcohol: never Drug use: none Marital status: Housing status: lives with family Occupation status: retired Immunizations History of Influenza Vaccine: Yes History of Tetanus Vaccine?: No History of Pneumococcal: Yes History of Hepatitis B Vaccine: No History of MDRO No Allergies Coded Allergies: Penicillins (Verified Allergy, Mild, MARGINAL, 02/26/16) MARGINAL Medications Home Medications: Home Meds and Scripts Medications Dose Route/Sig Max Daily Dose Days Date Category Dose Instructions Vitamin B-1 (Thiamine HCl) 100 Mg Tab 1 Tab PO DAILY 03/14/16 Reported Lopressor (Metoprolol Tartrate) 50 Mg Tab 0.25 Mg PO Q2D 02/24/16 Reported Glipizide 10 Mg Tab 10 Mg PO QAM 02/24/16 Reported Tamsulosin HCl 0.4 Mg Cap 0.4 Mg PO BID 02/24/16 Reported Mirtazapine 45 Mg Tab 45 Mg PO HS 02/24/16 Reported Fluoxetine HCl 20 Mg Cap 40 Mg PO DAILY 02/24/16 Reported Aspirin Chewable (Aspirin) 81 Mg Chew 81 Mg PO QAM 08/05/15 Reported Lopressor (Metoprolol Tartrate) 50 Mg Tab 0.5 Tab PO Q2D 08/05/15 Reported ALTERNATES WITH 0.25 MG Q 2ND DAY. Protonix (Pantoprazole Sodium) 40 Mg Tab 40 Mg PO QAM 08/05/15 Reported Cozaar (Losartan Potassium) 25 Mg Tab 25 Mg PO QPM 08/05/15 Reported Pravastatin Sodium (Pravastatin Sod) 40 Mg Tab 1 Tab PO QPM 08/05/15 Reported Inpatient Medications: Current Inpatient Medications Medications (Trade) Dose Ordered Sig/[place] Route Start Time Stop Time Status Last Admin Dose Admin Magnesium Hydroxide (Milk Of Magnesia Susp) 30 ml Q6H PRN PO 03/14/16 15:15 04/13/16 15:14 Fluoxetine HCl (Prozac Cap) 40 mg DAILY PO 03/15/16 09:00 04/14/16 08:59 03/15/16 08:31 40 MG Metoprolol Tartrate (Lopressor Tab) 12.5 mg Q2D@2100 PO 03/14/16 21:00 04/13/16 20:59 03/14/16 22:26 12.5 MG Metoprolol Tartrate (Lopressor Tab) 25 mg Q2D@2100 PO 03/15/16 21:00 04/14/16 20:59 Pantoprazole Sodium (Protonix Tab) 40 mg QAM PO 03/15/16 09:00 04/14/16 08:59 03/15/16 08:31 40 MG Pravastatin Sodium (Pravachol Tab) 40 mg QPM PO 03/14/16 21:00 04/13/16 20:59 03/14/16 22:25 40 MG Tamsulosin HCl (Flomax Cap) 0.4 mg BID PO 03/14/16 21:00 04/13/16 20:59 03/15/16 08:30 0.4 MG Thiamine HCl (Vitamin B-1 Tab) 100 mg DAILY PO 03/15/16 09:00 04/14/16 08:59 03/15/16 08:30 100 MG Mirtazapine (Remeron Tab) 45 mg HS PO 03/14/16 21:00 04/13/16 20:59 03/14/16 22:25 45 MG Glucose (Glucose 40% Gel) 15-30 GRAMS 15 GRAMS... UD PRN PO 03/14/16 15:45 04/13/16 15:44 Glucose (Glucose Chew Tab) 4-8 Tablets 4 Tabl... UD PRN PO 03/14/16 15:45 04/13/16 15:44 Dextrose (Dextrose 50% 50ML Syringe) 25-50ML OF 50% DW IV FOR... UD PRN IV 03/14/16 15:45 04/13/16 15:44 Glucagon 1 mg 1 mg UD PRN SQ 03/14/16 15:45 04/13/16 15:44 Aztreonam 1000 mg/ Dextrose 105 ml @ 100 mls/hr Q8H IV 03/15/16 02:00 03/24/16 15:44 03/15/16 02:20 100 MLS/HR Sodium Chloride (Nss 1000ml) 1,000 ml @ 125 mls/hr Q8H IV 03/14/16 15:45 03/15/16 15:44 03/15/16 08:27 125 MLS/HR Acetaminophen (Tylenol Tab) 500 mg Q4H PRN PO 03/14/16 23:30 04/13/16 23:29 03/15/16 06:15 500 MG Insulin Aspart (novoLOG ASPART) SLIDING SCALE G... Q6 SC 03/15/16 06:00 04/14/16 05:59 Review of Systems Review of Systems Constitutional: No chills, No fever Eyes: No double vision Neurological: No dizzy Endocrine: No excessive thirst Gastrointestinal: No abdominal pain, No nausea, No vomiting Cardiovascular: No chest pain Respiratory: No shortness of breath Skin: No rash Musculoskeletal: + arthritis, No back pain Male : + painful urination, No blood in urine Physical Exam Vital Signs: Vital Signs Past 12 Hours Date Time Temp Pulse Resp B/P Pulse Ox O2 Delivery O2 Flow Rate FiO2 03/15/16 07:57 36.9 75 14 143/67 95 Room Air 03/15/16 00:05 Room Air 03/15/16 00:05 37.3 03/14/16 22:45 38.0 90 18 125/62 97 Room Air Physical Exam: General Appearance: no apparent distress Eyes: bilateral eyes normal inspection ENT: hearing grossly normal Neck: no JVD Respiratory/Chest: no respiratory distress, no accessory muscle use Cardiovascular: no JVD Extremities: normal inspection Neurologic/Psychiatric: alert, normal mood/affect, oriented x 3 Skin: normal color Assessment & Plan Assessment & Plan A/P: UTI with incomplete bladder emptying; bilateral nephrolithiasis AFVSS. CT scan reviewed with Dr. Graves this morning. Dilation of right ureter consistent with expected dilation after stent removal. No evidence for obstruction or ureteral stone requiring replacement of stent at this time. Will observe for now. Would only consider replacement of right ureteral stent if the pt were to decompensate. Pt noted to have incomplete bladder emptying on CT. Helms catheter placed this morning. Now draining cloudy urine. Recommend helms catheter remain in place and the pt continue IV abx until culture sensitivities return. Recommend the pt remain inpatient until culture sensitivities return and he has been afebrile x 24hrs. Will provide a diet today. Thanks for the consult. Will continue to follow along with primary service at this time.
[2016-03-15] MEDS ORDERED: NURSING DECISION MEDICATION ORDER SCH (10:30)
[2016-03-15] MEDS: INSULIN ASPART 100 UNITS/ML 3 ML PEN SC SCH ×3 (12:00→20:25)
--- NOTE | 2016-03-15 13:50 | Family Medicine Progress Note ---
Progress Note Date of Service Mar 15, 2016. Subjective Pt evaluation today including: conversation w/ patient, physical exam, chart review, lab review The patient was seen and examined at bedside. No acute overnight events. Patient is resting comfortably in bed. Says he is feeling "lousy" and has been feeling lousy for the past couple of days. Patient denies any specific complaints, just a general malaise. Pt denies being in any pain. Pt is curious about the status of his , is concerned for her as she was recently admitted to the hospital as well. Pt denies dysuria, flank pain or abdominal pain. Constitutional: No chills, No fever, No sweats Respiratory: No cough, No shortness of breath, No sputum, No wheezing Cardiovascular: No chest pain, No orthopnea Abdomen: No diarrhea, No nausea, No pain, No vomiting Male : No dysuria Neurologic: No memory loss Objective Physical Exam General Appearance: WD/WN, no apparent distress Respiratory/Chest: chest non-tender, lungs clear, normal breath sounds, no respiratory distress, no accessory muscle use, + pertinent finding (No tenderness to deep palpation, no cva tenderness.) Cardiovascular: regular rate, rhythm, no edema, no gallop, no JVD, no murmur Abdomen: normal bowel sounds, non tender, soft, no organomegaly Extremities: normal range of motion, non-tender, normal inspection, no pedal edema Neurologic/Psychiatric: alert, normal mood/affect, oriented x 3 Assessment and Plan This is an 86 yo m that is suffering from ERICKSON on CKD. Pt had bilateral uretal stents placed in February 2016 for obstructing kidney stones with plans for outpatient lithotripsy. R uretal stent was removed on 03/09/16, L stent remained in place. In the ER the UA was abnormal. Blood cultures and UA was sent and patient was admitted for ERICKSON on CKD and UTI. Aztreonam and Vanco for the UTI due to patient's allergies. CT Scan Abdo and pelvis showed: * Left Kidney: A left ureteral stent is new from previous and in appropriate position. No calculi are identified along the course of the stent. The 1.6 cm obstructing calculus seen in the left proximal ureter on 02/25/2016 has been pushed back into the left renal pelvis. Additional nonobstructing left renal calculi have not significantly changed. 3. There is moderate left hydroureteronephrosis, modestly improved from 02/25/2016. * Right Kidney: There is mild to moderate right hydroureteronephrosis, new from the 02/25/2016 examination. Distal right ureteral calculi seen previously are no longer present. Bilateral nonobstructing right renal calculi are grossly unchanged. Urine culture showed gram negative bacilli. Vancomycin was discontinued. Patient is being treated for a UTI. As per urology, R sided CT changed are consistent with stent removal. Helms cathetor was placed for incomplete bladder emptying. ERICKSON on CKD secondary to dehydration - Pt is feeling tired and fatigued, improved later in the day. - Creatinine is improving, 2.1<--2.5. Baseline is around 1.6. - Urology recommendations: -Dilation of right ureter consistent with expected dilation after stent removal. -No evidence for obstruction or ureteral stone requiring replacement of stent at this time. Will observe for now. Would only consider replacement of right ureteral stent if the pt were to decompensate. -Pt noted to have incomplete bladder emptying on CT. Helms catheter placed this morning. Now draining cloudy urine. Recommend helms catheter remain in place and the pt continue IV abx until culture sensitivities return. -Recommend the pt remain inpatient until culture sensitivities return and he has been afebrile x 24hrs. - NSS @ 125 cc/hr - did receive a bolus in the ED - hold losartan and ASA - f/u BMP. UTI complicated reflected by abnormal UA and imaging - Febrile yesterday evening. - Urine culture showed gram negative bacilli. - DC Vanco, c/w Aztreonam, pending sensitivities. - f/u blood cultures BPH - c/w flomax CAD - c/w Metoprolol 25mg/12.5mg on alternate days. Mood - c/w Fluoxetine 40mg daily and Mirtazepine 45mg daily. Hypercholesterolemia - c/w pravastatin 40mg daily. DM2 - continue to hold glipizide, ISS initiated Dispo - DVT Proph: HepSQ - Discharge planning eval - Full Code. Resident Physician Supervision Note: I was present with the resident physician during the history and exam. I discussed the case with the resident and agree with the findings and plan as documented in the note. Documented By: Vinh Montano Resident Involvement: Resident Care Provided Care Provided: [facility]
[2016-03-15 14:54] VITALS: BP 159/69; PULSE 84; TEMP 37.4; O2SAT 99
[2016-03-15 20:00] VITALS: O2SAT 99
[2016-03-15] MEDS: MIRTAZAPINE TAB 15 MG TAB PO SCH (20:29)
[2016-03-15] MEDS: METOPROLOL TARTRATE 25 MG TAB PO SCH (20:29)
[2016-03-15] MEDS: PRAVASTATIN SOD 40 MG TAB PO SCH (20:29)
[2016-03-15] MEDS: HEPARIN SOD 5000 UNIT/0.5 ML CARP SQ SCH (20:31)
[2016-03-15 20:36] VITALS: BP 166/76; PULSE 78
[2016-03-15] MEDS ORDERED: LORAZEPAM 2 MG TAB PO PRN (21:00)
[2016-03-15 23:17] VITALS: BP 158/62; PULSE 79; TEMP 37.3; O2SAT 95
[2016-03-16] VITALS (7 sets, daily range): BP systolic 135–177; BP diastolic 71–78; PULSE 68–74; TEMP 36.7–36.8; O2SAT 95–98
[2016-03-16] MEDS: AZTREONAM IV 1,000 MG in DEXTROSE 5% 100ML 100 ML IV SCH ×2 (01:01→10:28)
[2016-03-16] MEDS ORDERED: NURSING VERBAL MED ORDER ONE ×2 (03:45→04:30)
[2016-03-16] MEDS ORDERED: LORAZEPAM 1 MG TAB PO PRN (05:45)
[2016-03-16] MEDS ORDERED: INSULIN ASPART 100 UNITS/ML 3 ML PEN SC SCH (06:00)
--- NOTE | 2016-03-16 08:00 | Progress Note ---
Subjective Date of Service: Mar 16, 2016. Subjective Pt evaluation today including: conversation w/ patient, chart review Voiding: helms catheter in place (patent, draining clear, yellow urine) Pt denies pain this morning. He has remained afebrile for 24hrs. UC&S growing Klebsiella. Resistant to quinolones and Bactrim. He remains on IV Aztreonam. Cr pending. Problem List Medical Problems: (1) Acute renal failure Status: Acute (2) C1 cervical fracture Status: Acute (3) Dehydration Status: Acute (4) Elevated serum creatinine Status: Acute (5) Fatigue Status: Acute (6) General weakness Status: Acute (7) Obstructive uropathy Status: Acute (8) Odontoid fracture Status: Acute (9) Rectal bleeding Status: Acute (10) Scaphoid fracture Status: Acute (11) Sepsis Status: Acute (12) Urinary retention Status: Acute (13) UTI (urinary tract infection) Status: Acute Review of Systems Constitutional: No chills, No fever Respiratory: No shortness of breath Cardiac: No chest pain Abdomen: No nausea, No pain, No vomiting Male : No hematuria Heme: No abnormal bleeding/bruising Objective Vital Signs Date Time Temp Pulse Resp B/P Pulse Ox O2 Delivery O2 Flow Rate FiO2 03/15/16 23:17 37.3 79 18 158/62 95 Room Air 03/15/16 23:15 Room Air 03/15/16 20:36 78 166/76 03/15/16 20:00 99 Room Air 03/15/16 14:54 37.4 84 16 159/69 99 Room Air 03/15/16 07:57 36.9 75 14 143/67 95 Room Air Physical Exam General Appearance: no apparent distress Eyes: normal inspection ENT: hearing grossly normal Neck: no JVD Respiratory/Chest: no respiratory distress, no accessory muscle use Cardiovascular: no JVD Extremities: normal inspection Neurologic/Psychiatric: alert, normal mood/affect, oriented x 3 Skin: normal color Laboratory Results Last 24 Hours Test 03/15/16 11:56 03/15/16 16:31 03/15/16 20:23 03/16/16 04:44 Bedside Glucose 141 mg/dl 134 mg/dl 156 mg/dl Test 03/16/16 05:59 Bedside Glucose 141 mg/dl Assessment and Plan A/P: UTI, incomplete bladder emptying AFVSS. Consider transitioning the pt to 2 weeks of PO Keflex prior to d/c home. The pt does have an allergy to PCN; reaction ? throat and eye swelling. Would recommend he receive 1-2 doses while inpatient prior to discharge to ensure he does not have a severe reaction. Continue Flomax. Will leave helms catheter in place for now as well. TOV as outpatient in 1 week. In light of UTI, will plan to reschedule his ESWL to next week as well. Pt aware. Will continue to follow along with primary service at this time. Discharge planning: home
[2016-03-16 08:03] LABS: HEMATOCRIT 33.1 % (42-52); MEAN CELL VOLUME 90.4 fL (80-100); MEAN CORPUSCULAR HEMOGLOBIN 29.8 pg (25-34); MEAN CORPUSCULAR HGB CONC 32.9 g/dl (32-36); MEAN PLATELET VOLUME 11.6 fL (7.4-10.4); PLATELET COUNT 129 K/uL (130-400); RED BLOOD COUNT 3.66 M/uL (4.7-6.1); WHITE BLOOD COUNT 6.01 K/uL (4.8-10.8)
[2016-03-16 08:31] LABS: BUN/CREATININE RATIO 18.6 (10-20); CALCIUM 8.6 mg/dl (8.5-10.1); CREATININE 1.9 mg/dl (0.60-1.40)
--- NOTE | 2016-03-16 09:20 | Family Medicine Progress Note ---
Progress Note Date of Service Mar 16, 2016. Subjective Pt evaluation today including: conversation w/ patient, physical exam, chart review, lab review The patient was seen and examined at bedside. Pt received 2mg of Ativan overnight for agitation. Patient is resting comfortably in bed. Eating and urinating well. Jhony is worried about his and has a "little bit" of left sided abdominal pain. Pt has a helms catheter draining yellow urine. Plan of care was described to the patient,including continuing Abx, leaving the urine in, trial of Keflex, and potentially going to rehab instead of going home. Pt was updated that his was in good condition and that we would try to arrange him to see her. Objective Physical Exam General Appearance: WD/WN, no apparent distress Respiratory/Chest: chest non-tender, lungs clear, normal breath sounds, no respiratory distress, no accessory muscle use Cardiovascular: regular rate, rhythm, no edema, no gallop, no JVD, no murmur Abdomen: normal bowel sounds, non tender, soft, + pertinent finding (mild left sided abdominal pain) Extremities: normal range of motion, non-tender, normal inspection Assessment and Plan This is an 86 yo m that is suffering from ERICKSON on CKD. Pt had bilateral uretal stents placed in February 2016 for obstructing kidney stones with plans for outpatient lithotripsy. R uretal stent was removed on 03/09/16, L stent remained in place. In the ER the UA was abnormal. Blood cultures and UA was sent and patient was admitted for ERICKSON on CKD and UTI. Aztreonam and Vanco for the UTI due to patient's allergies. CT Scan Abdo and pelvis on admission showed : * Left Kidney: Left ureteral stent. 1.6 cm stone in the left renal pelvis. There is moderate left hydroureteronephrosis, modestly improved from 2015. * Right Kidney: Changes possibly suggesting mild to moderate right hydroureteronephrosis, Urine culture showed gram negative bacilli. Vancomycin was discontinued. Patient is being treated for a UTI. As per urology, R sided CT changed are consistent with stent removal. Helms cathetor was placed for incomplete bladder emptying. Urine culture sensitivities returns, as per urology recommendations patient will receive a trial of Kelfex, be discharged with a helms with a voiding trial in one week after discharge and outpatient lithotripsy will be postponed until UTI has resolved. ERICKSON on CKD secondary to dehydration - Pt is feeling tired and fatigued, improved later in the day. - Creatinine is improving, 1.9<--2.1<--2.5. Baseline is around 1.6. - Urology recommendations: -R. Kidney changes consistent with post uretral stent removal. Left sided stent does not need to be replaced. -PO Keflex x 2 weeks, continue flomax, leave helms in place, trial of Void in 1 week, in light of UTI reschedule ESWL to next well. - continue to hold ASA, restart Losartan 25mg daily. - f/u BMP daily. UTI complicated reflected by abnormal UA and imaging - Urine culture showed gram negative bacilli, sensitivities have returned. DC' d Vanc and Aztreonam. - Blood Cultures - No growth to date. - PO Keflex 500mg BID x 14 days. Day #1 today. PCN allergy, eye swelling, monitor for 24 hours. HTN - Noted to be high. Pt is on Metoprolol. Restart Losartan 25mg daily. Continue to monitor creatinine. BPH - c/w flomax CAD - c/w Metoprolol 25mg/12.5mg on alternate days. Mood - c/w Fluoxetine 40mg daily and Mirtazepine 45mg daily. Hypercholesterolemia - c/w pravastatin 40mg daily. DM2 - continue to hold glipizide, ISS initiated Dispo - DVT Proph: HepSQ - Discharge planning eval - unlikely to be able to return home. - Full Code. Resident Physician Supervision Note: I was present with the resident physician during the history and exam. I discussed the case with the resident and agree with the findings and plan as documented in the note. Any exceptions or clarifications are listed here: Clinically, improving. However, the greater issue is an overall decline over the last several months, complicated further by his 's failing health (she is also hospitalized at this moment). 1) continue gentle IVF; baseline Cr 1.5 - 1.6 range. 2) monitor blood pressure; ARB on hold but could restart with close monitoring here in the hospital. 3) social services technician consult. 4) antibiotics as recommended above. Documented By: Vinh Montano Resident Involvement: Resident Care Provided Care Provided: [facility]
[2016-03-16] MEDS: THIAMINE HCL 100 MG TAB PO SCH (09:25)
[2016-03-16] MEDS: TAMSULOSIN HCL 0.4 MG CAP PO SCH ×2 (09:26→20:51)
[2016-03-16] MEDS: PANTOprazole SOD 40 MG TAB PO SCH (09:26)
[2016-03-16] MEDS: FLUOXETINE HCL 20 MG CAP PO SCH (09:27)
[2016-03-16] MEDS: HEPARIN SOD 5000 UNIT/0.5 ML CARP SQ SCH ×2 (09:32→20:56)
[2016-03-16] MEDS ORDERED: NURSING DECISION MEDICATION ORDER SCH (09:45)
[2016-03-16] MEDS ORDERED: LOSARTAN POTASSIUM 25 MG TAB PO ONE (11:16)
[2016-03-16] MEDS: INSULIN ASPART 100 UNITS/ML 3 ML PEN SC SCH ×3 (13:10→20:56)
[2016-03-16] MEDS ORDERED: LEVOFLOXACIN / D5W 750 MG in PREMIXED IN D5W 150 ML IV SCH (15:00)
[2016-03-16] MEDS: SODIUM CHLOR 0.45% + 20MEQ KCL 1,000 ML IV SCH (17:40)
[2016-03-16] MEDS: PRAVASTATIN SOD 40 MG TAB PO SCH (20:51)
[2016-03-16] MEDS: CEPHALEXIN MONOHYDRATE 500 MG CAP PO SCH (20:52)
[2016-03-16] MEDS: MIRTAZAPINE TAB 15 MG TAB PO SCH (20:52)
[2016-03-16] MEDS: METOPROLOL TARTRATE 25 MG TAB PO SCH (20:54)
[2016-03-16] MEDS: ACETAMINOPHEN 500 MG TAB PO PRN (21:03)
[2016-03-17] MEDS: SODIUM CHLOR 0.45% + 20MEQ KCL 1,000 ML IV SCH ×2 (04:05→14:00)
[2016-03-17 06:04] LABS: HEMATOCRIT 30.6 % (42-52); MEAN CELL VOLUME 89.7 fL (80-100); MEAN CORPUSCULAR HEMOGLOBIN 29.9 pg (25-34); MEAN CORPUSCULAR HGB CONC 33.3 g/dl (32-36); MEAN PLATELET VOLUME 11.4 fL (7.4-10.4); PLATELET COUNT 148 K/uL (130-400); RED BLOOD COUNT 3.41 M/uL (4.7-6.1); WHITE BLOOD COUNT 6.38 K/uL (4.8-10.8)
[2016-03-17 06:36] LABS: BUN/CREATININE RATIO 15.2 (10-20); CREATININE 1.7 mg/dl (0.60-1.40); POTASSIUM 4.3 mmol/L (3.5-5.1)
--- NOTE | 2016-03-17 07:50 | Progress Note ---
Subjective Date of Service: Mar 17, 2016. Subjective Pt evaluation today including: conversation w/ patient, chart review, lab review Voiding: helms catheter in place (patent, draining clear, yellow urine) Pt denies pain this morning. Denies n/v. He was started on Keflex last evening. Denies any swelling, SOB, hives, or rashes. Problem List Medical Problems: (1) Acute renal failure Status: Acute (2) C1 cervical fracture Status: Acute (3) Dehydration Status: Acute (4) Elevated serum creatinine Status: Acute (5) Fatigue Status: Acute (6) General weakness Status: Acute (7) Obstructive uropathy Status: Acute (8) Odontoid fracture Status: Acute (9) Rectal bleeding Status: Acute (10) Scaphoid fracture Status: Acute (11) Sepsis Status: Acute (12) Urinary retention Status: Acute (13) UTI (urinary tract infection) Status: Acute Review of Systems Constitutional: No chills, No fever Respiratory: No shortness of breath Abdomen: No nausea, No pain, No vomiting Male : No hematuria Heme: No abnormal bleeding/bruising Objective Vital Signs Date Time Temp Pulse Resp B/P Pulse Ox O2 Delivery O2 Flow Rate FiO2 03/16/16 23:25 Room Air 03/16/16 23:16 36.8 74 16 157/72 95 Room Air 03/16/16 21:44 153/72 03/16/16 21:28 164/71 03/16/16 21:24 177/78 03/16/16 20:45 69 171/75 03/16/16 16:00 Room Air 03/16/16 15:42 36.7 74 18 135/77 97 Room Air 03/16/16 07:51 36.8 68 16 177/77 98 Room Air Physical Exam General Appearance: no apparent distress Eyes: normal inspection ENT: hearing grossly normal Neck: no JVD Respiratory/Chest: no respiratory distress, no accessory muscle use Cardiovascular: no JVD Extremities: normal inspection Neurologic/Psychiatric: alert, normal mood/affect, oriented x 3 Skin: normal color Laboratory Results Last 24 Hours Test 03/16/16 11:21 03/16/16 16:57 03/16/16 20:39 03/17/16 05:50 Bedside Glucose 211 mg/dl 145 mg/dl 196 mg/dl White Blood Count 6.38 K/uL Red Blood Count 3.41 M/uL Hemoglobin 10.2 g/dL Hematocrit 30.6 % Mean Corpuscular Volume 89.7 fL Mean Corpuscular Hemoglobin 29.9 pg Mean Corpuscular Hemoglobin Concent 33.3 g/dl RDW Standard Deviation 47.4 fL RDW Coefficient of Variation 14.4 % Platelet Count 148 K/uL Mean Platelet Volume 11.4 fL Sodium Level 140 mmol/L Potassium Level 4.3 mmol/L Chloride Level 110 mmol/L Carbon Dioxide Level 21 mmol/L Anion Gap 9.0 mmol/L Blood Urea Nitrogen 26 mg/dl Creatinine 1.70 mg/dl Est Creatinine Clear Calc Drug Dose 35.5 ml/min Estimated GFR () 42.0 Estimated GFR (Non- 36.2 BUN/Creatinine Ratio 15.2 Random Glucose 138 mg/dl Calcium Level 8.0 mg/dl Assessment and Plan A/P: UTI, incomplete bladder emptying AFVSS. Continue Keflex for 14 days of therapy. No adverse reactions noted at this time. Continue Flomax. Will leave helms catheter in place for now as well. TOV as outpatient in 1 week. In light of UTI, will plan to reschedule his ESWL to next week as well. Pt aware. No further management at this time. Pt OK for d/c home from [facility]. Recall PRN issues. Will arrange for outpatient f/u. Discharge planning: home
[2016-03-17 08:05] VITALS: BP 177/80; PULSE 74; TEMP 36.7; O2SAT 96
[2016-03-17] MEDS: PANTOprazole SOD 40 MG TAB PO SCH (09:17)
[2016-03-17] MEDS: THIAMINE HCL 100 MG TAB PO SCH (09:17)
[2016-03-17] MEDS: LOSARTAN POTASSIUM 25 MG TAB PO SCH (09:18)
[2016-03-17] MEDS: TAMSULOSIN HCL 0.4 MG CAP PO SCH ×2 (09:18→20:53)
[2016-03-17] MEDS: CEPHALEXIN MONOHYDRATE 500 MG CAP PO SCH ×2 (09:18→20:53)
[2016-03-17] MEDS: FLUOXETINE HCL 20 MG CAP PO SCH (09:18)
[2016-03-17] MEDS: INSULIN ASPART 100 UNITS/ML 3 ML PEN SC SCH ×4 (09:26→20:46)
[2016-03-17] MEDS: HEPARIN SOD 5000 UNIT/0.5 ML CARP SQ SCH ×2 (09:27→20:56)
--- NOTE | 2016-03-17 09:40 | Family Medicine Progress Note ---
Progress Note Date of Service Mar 17, 2016. Subjective Pt evaluation today including: conversation w/ patient, physical exam, chart review, lab review The patient was seen and examined at bedside. Pt received 1mg Ativan overnight. According to nurse after receiving the ativan pt walked to the door of his room with his helms bag still attached to the bed. Pt is resting comfortably. Denies being in any pain. Plan of care was described to the patient and all questions were answered. Constitutional: No chills, No fever Respiratory: No cough, No shortness of breath, No sputum, No wheezing Cardiovascular: No chest pain Abdomen: No nausea, No pain Objective Physical Exam General Appearance: WD/WN, no apparent distress, + pertinent finding (Pt has a helms cathetor draining clear yellow liquid. ) Respiratory/Chest: chest non-tender, lungs clear, normal breath sounds, no respiratory distress Cardiovascular: regular rate, rhythm, no edema, no gallop, no JVD, no murmur Extremities: normal range of motion, non-tender, normal inspection, no pedal edema Neurologic/Psychiatric: alert, normal mood/affect, oriented x 3 Assessment and Plan This is an 86 yo m that is suffering from ERICKSON on CKD. Pt had bilateral uretal stents placed in February 2016 for obstructing kidney stones with plans for outpatient lithotripsy. R uretal stent was removed on 03/09/16, L stent remained in place. In the ER the UA was abnormal and creatinine elevated. Patient was admitted for ERICKSON on CKD and UTI. As per urology, R sided CT changed are consistent with stent removal. Helms catheter was placed for incomplete bladder emptying. Urine culture showed Klebsiella Pneumonia with sensitivities. As per urology recommendations patient will receive a trial of Keflex, and to be discharged with a helms with a voiding trial in one week and outpatient lithotripsy will be postponed until UTI has resolved. On 03/17/16 Blood cultures returned Gram Negative Bacilli, sensitivities pending, will c/w Keflex. ERICKSON on CKD secondary to dehydration - Pt is feeling better. - Creatinine is improving, 1.7<--1.9<--2.1<--2.5. Baseline is around 1.6. - Urology recommendations: -R. Kidney changes consistent with post uretral stent removal. Left sided stent does not need to be replaced. -PO Keflex x 2 weeks, continue flomax, leave helms in place, trial of Void in 1 week, in light of UTI reschedule ESWL to next well. - continue to hold ASA, c/w Losartan 25mg daily. - NSS @ 75mg/hr. - f/u BMP daily. UTI complicated reflected by abnormal UA and imaging - Urine culture showed Klebsiella Pneumonia, sensitivities have returned. c/w Keflex. - Blood Cultures - Gram Negative Bacilli, sensitivities pending. c/w Keflex. - Switch Keflex to 500mg TID x 14 days. Day #2 today. PCN allergy, eye swelling, monitor for 24 hours. Constipation - Colace 1 cap today, continue to monitor. HTN - Noted to be high. C/w Metoprolol. c/w Losartan 25mg daily. Continue to monitor creatinine. BPH - c/w flomax CAD - c/w Metoprolol 25mg/12.5mg on alternate days. Mood - c/w Fluoxetine 40mg daily and Mirtazepine 45mg daily. Hypercholesterolemia - c/w pravastatin 40mg daily. DM2 - continue to hold glipizide, ISS initiated Dispo - DVT Proph: HepSQ - Discharge planning eval - unlikely to be able to return home. - Full Code. Resident Physician Supervision Note: I was present with the resident during the history and exam. I discussed the case with the resident and agree with the findings and plan as documented in the note. Any exceptions or clarifications are listed here: 1/2 blood cultures with growth; if this matches the urinary pathogen, would have to believe it is not a contaminant. The patient had two days of IV antibiotics and has been afebrile; agree with continued Keflex (increased to TID) pending final identification. Documented By: Vinh Montano Resident Involvement: Resident Care Provided Care Provided: Adult Hospital Medicine
[2016-03-17 15:20] VITALS: BP 147/89; PULSE 74; TEMP 36.9; O2SAT 98
[2016-03-17] MEDS ORDERED: DOCUSATE SODIUM 100 MG/10 ML UDC PO ONE (15:30)
[2016-03-17] MEDS: ACETAMINOPHEN 500 MG TAB PO PRN ×2 (16:09→20:52)
[2016-03-17] MEDS ORDERED: NURSING VERBAL MED ORDER ONE (16:15)
[2016-03-17 16:34] VITALS: BP 162/83; PULSE 72; O2SAT 99
[2016-03-17 20:49] VITALS: BP 145/74; PULSE 73
[2016-03-17] MEDS: METOPROLOL TARTRATE 25 MG TAB PO SCH (20:51)
[2016-03-17] MEDS: PRAVASTATIN SOD 40 MG TAB PO SCH (20:52)
[2016-03-17] MEDS: LORAZEPAM 0.5 MG TAB PO PRN (20:52)
[2016-03-17] MEDS: MIRTAZAPINE TAB 15 MG TAB PO SCH (20:53)
[2016-03-17 23:50] VITALS: BP 143/74; PULSE 83; TEMP 36.7; O2SAT 97
[2016-03-18] MEDS: SODIUM CHLOR 0.45% + 20MEQ KCL 1,000 ML IV SCH ×2 (00:49→15:05)
[2016-03-18 07:32] LABS: HEMATOCRIT 32.7 % (42-52); MEAN CELL VOLUME 90.1 fL (80-100); MEAN CORPUSCULAR HEMOGLOBIN 29.8 pg (25-34); MEAN PLATELET VOLUME 11.2 fL (7.4-10.4); PLATELET COUNT 178 K/uL (130-400); RED BLOOD COUNT 3.63 M/uL (4.7-6.1); WHITE BLOOD COUNT 6.14 K/uL (4.8-10.8)
[2016-03-18 07:42] VITALS: BP 160/80; PULSE 65; TEMP 36.5; O2SAT 97
[2016-03-18 07:56] LABS: BUN/CREATININE RATIO 15.1 (10-20); CALCIUM 8.4 mg/dl (8.5-10.1); CREATININE 1.7 mg/dl (0.60-1.40); POTASSIUM 4.6 mmol/L (3.5-5.1)
[2016-03-18 08:32] VITALS: O2SAT 97
[2016-03-18] MEDS: CEPHALEXIN MONOHYDRATE 500 MG CAP PO SCH ×3 (09:21→21:13)
[2016-03-18] MEDS: PANTOprazole SOD 40 MG TAB PO SCH (09:22)
[2016-03-18] MEDS: FLUOXETINE HCL 20 MG CAP PO SCH (09:22)
[2016-03-18] MEDS: LOSARTAN POTASSIUM 25 MG TAB PO SCH (09:22)
[2016-03-18] MEDS: TAMSULOSIN HCL 0.4 MG CAP PO SCH ×2 (09:23→21:13)
[2016-03-18] MEDS: THIAMINE HCL 100 MG TAB PO SCH (09:23)
[2016-03-18] MEDS: INSULIN ASPART 100 UNITS/ML 3 ML PEN SC SCH ×4 (10:04→21:00)
[2016-03-18] MEDS: HEPARIN SOD 5000 UNIT/0.5 ML CARP SQ SCH ×2 (10:05→21:14)
[2016-03-18] MEDS ORDERED: KFL500 PO (10:52)
--- NOTE | 2016-03-18 10:56 | Discharge Instructions ---
Discharge Instructions Admission Reason for Admission: Hydronephrosis, Sirs Discharge Discharge Diagnosis / Problem: ERICKSON on CKD 2/2 to dehydration, UTI with AMS Discharge Goals Goal(s): Decrease discomfort, Improve function, Increase independence Activity Recommendations Activity Limitations: resume your previous activity . Instructions / Follow-Up Instructions / Follow-Up You are to keep the helms catheter for 1 week and have a voiding trial after that. Keep taking your Keflex Antibiotic Three time a day for the next 11 days. Please call your urologist to schedule the outpatient Lithotripsy appointments. Return to the ER if you experience any symptoms including lethargy, altered mental status or blood draining from your catheter. Current Hospital Diet Patient's current hospital diet: Diabetes Type 2 Diet, AHA Diet (Heart Healthy) Discharge Diet Recommended Diet: Diabetes Type 1 Diet Fluid Restriction: None Pending Studies Studies pending at discharge: yes List of pending studies: We are awaiting sensitivities to the blood cultures. (Gram Negative Bacilli) If the blood cultures are resistent to the Keflex antibiotic we will call you with a new prescription. Medical Emergencies . Who to Call and When: Medical Emergencies: If at any time you feel your situation is an emergency, please call 911 immediately. . Non-Emergent Contact Non-Emergency issues call your: Primary Care Provider, Urologist . . "Provider Documentation" section prepared by Jamil Yao. VTE Core Measure Inpt VTE Proph given/why not?: Unfractionated heparin SQ, SCD's Resident Involvement: Resident Care Provided Care Provided: Adult Hospital Medicine
--- NOTE | 2016-03-18 11:06 | Discharge Summary ---
Discharge Summary Admission Date: Mar 14, 2016 at 15:25 Discharge Date: Mar 18, 2016 [facility]charge Disposition: [facility] Principal Diagnosis: acute kidney injury on chronic kidney disease, UTI with AMS Immunizations: Have You Had Influenza Vaccine: Yes History of Tetanus Vaccine?: No History of Pneumococcal: Yes History of Hepatitis B Vaccine: No (Jamil Yao M.D.) Medication Reconciliation New Medications: Cephalexin Monohydrate (Cephalexin) 500 Mg Cap 500 MG PO TID for 11 Days, #33 CAP Continued Medications: Aspirin (Aspirin Chewable) 81 Mg Chew 81 MG PO QAM Fluoxetine HCl (Fluoxetine HCl) 20 Mg Cap 40 MG PO DAILY, #120 Glipizide (Glipizide) 10 Mg Tab 10 MG PO QAM, #45 Losartan Potassium (Cozaar) 25 Mg Tab 25 MG PO QPM, TAB Metoprolol Tartrate (Lopressor) (Lopressor) 50 Mg Tab 0.5 TAB PO Q2D, TAB ALTERNATES WITH 0.25 MG Q 2ND DAY. Metoprolol Tartrate (Lopressor) (Lopressor) 50 Mg Tab 0.25 MG PO Q2D, TAB Mirtazapine (Mirtazapine) 45 Mg Tab 45 MG PO HS, #30 Pantoprazole (Protonix) 40 Mg Tab 40 MG PO QAM, #30 TAB Pravastatin Sod (Pravastatin Sodium) 40 Mg Tab 1 TAB PO QPM Tamsulosin HCl (Tamsulosin HCl) 0.4 Mg Cap 0.4 MG PO BID, #180 Thiamine Hcl (Vitamin B-1) 100 Mg Tab 1 TAB PO DAILY Discharge Exam The patient was seen and examined at bedside. No acute overnight events. Pt has a helms draining clear yellow urine. Received 0.5mg of Ativan overnight ( 1mg previous night, and 2mg the night before that). Patient is resting comfortably in bed. Denies having any pain. Eating and urinating well. Plan of care was described to the patient and all questions were answered. Review of Systems: Constitutional: No chills, No fever Respiratory: No cough, No shortness of breath, No sputum Cardiovascular: No chest pain Abdomen: No nausea, No vomiting Musculoskeletal: No joint pain Physical Exam: General Appearance: WD/WN, no apparent distress Respiratory/Chest: chest non-tender, lungs clear, normal breath sounds, no respiratory distress Cardiovascular: regular rate, rhythm, no edema, no gallop, no JVD, no murmur Abdomen / GI: non tender, soft, no organomegaly, no pulsatile mass Extremities: no calf tenderness, no pedal edema Neurologic/Psychiatric: alert, normal mood/affect, normal reflexes, oriented x 3 (Jamil Yao M.D.) Hospital Course This is an 86 yo m that is suffering from ERICKSON on CKD. Pt had bilateral uretal stents placed in February 2016 for obstructing kidney stones with plans for outpatient lithotripsy. R uretal stent was removed on 03/09/16, L stent remained in place. In the ER the UA was abnormal and creatinine elevated. Patient was admitted for ERICKSON on CKD and UTI. As per urology, R sided CT changed are consistent with stent removal. Helms catheter was placed for incomplete bladder emptying. Urine culture showed Klebsiella Pneumonia with sensitivities. As per urology recommendations patient will receive a trial of Keflex, and to be discharged with a helms with a voiding trial in one week and outpatient lithotripsy will be postponed until UTI has resolved. On 03/17/16 Blood cultures returned Gram Negative Bacilli, sensitivities pending. Pt is discharged with an Rx of 11 days of Kelfex 500mg TID. He should be in contact with his urologist for outpatient lithotripsy and stent removal. Mental Status in the hospital improved. ERICKSON on CKD secondary to dehydration - Creatinine is at new baseline, likely 1.7<-- 1.7<--1.9<--2.1<--2.5. Baseline is around 1.6. UTI complicated reflected by abnormal UA and imaging - Urine culture showed Klebsiella Pneumonia, sensitivities have returned. - Blood Cultures - Gram Negative Bacilli, sensitivities pending at discharge. - Pt has a documented PCN allergy, eye swelling, but has been on Keflex in the past without significant reaction. Has also completed a two day course in hospital without complication. Constipation - May require some stool softeners if no BM in next 24-28 hours. HTN - Noted to be high. C/w Metoprolol. c/w Losartan 25mg daily. BPH - c/w flomax CAD - c/w Metoprolol 25mg/12.5mg on alternate days. Mood - c/w Fluoxetine 40mg daily and Mirtazepine 45mg daily. Hypercholesterolemia - c/w pravastatin 40mg daily. DM2 - may continue Glipizide as outpatient. Dispo- Full Code. Total Time Spent: Greater than 30 minutes This includes examination of the patient, discharge planning, medication reconciliation, and communication with other providers. (Jamil Yao M.D.) Resident Physician Supervision Note: I was present with the resident during the history and exam. I discussed the case with the resident and agree with the findings and plan as documented in the note. Any exceptions or clarifications are listed here: I examined the patient with the resident today. All questions were answered. Overall, he reports feeling much better than when compared to admission. His appetite has returned and his energy has increased. He is still somewhat weak and unsteady on his feet. He was really benefit from inpatient physical therapy. Unfortunately, a bed was not available at the [facility] today. I am told that it should be available tomorrow. This information was conveyed to the patient. At this point it would not be safe to send him home given his overall condition and lack of home support. Documented By: Vinh Montano (Vinh Montano.,D.O.) Discharge Instructions Please refer to the electronic Patient Visit Report (Discharge Instructions) for additional information. (Jamil Yao M.D.) Resident Involvement: Resident Care Provided Care Provided: Adult [place] [facility] (Jamil Yao M.D.)
[2016-03-18 11:52] VITALS: BP 140/80; PULSE 70; TEMP 36.4; O2SAT 97
--- NOTE | 2016-03-18 13:44 | Family Medicine Progress Note ---
Progress Note Date of Service Mar 18, 2016. Subjective Pt evaluation today including: conversation w/ patient, physical exam, chart review, lab review The patient was seen and examined at bedside. No acute overnight events. Pt has a helms draining clear yellow urine. Received 0.5mg of Ativan overnight ( 1mg previous night, and 2mg the night before that). Patient is resting comfortably in bed. Denies having any pain. Eating and urinating well. Plan of care was described to the patient and all questions were answered. Review of Systems: Constitutional: No chills, No fever Respiratory: No cough, No shortness of breath, No sputum Cardiovascular: No chest pain Abdomen: No nausea, No vomiting Musculoskeletal: No joint pain Objective Physical Exam Notes: Physical Exam: General Appearance: WD/WN, no apparent distress. Pt has a helms catheter. Respiratory/Chest: chest non-tender, lungs clear, normal breath sounds, no respiratory distress Cardiovascular: regular rate, rhythm, no edema, no gallop, no JVD, no murmur Abdomen / GI: non tender, soft, no organomegaly, no pulsatile mass Extremities: no calf tenderness, no pedal edema Neurologic/Psychiatric: alert, normal mood/affect, normal reflexes, oriented x 3 Assessment and Plan This is an 86 yo m that is suffering from ERICKSON on CKD. Pt had bilateral uretal stents placed in February 2016 for obstructing kidney stones with plans for outpatient lithotripsy. R uretal stent was removed on 03/09/16, L stent remained in place. In the ER the UA was abnormal and creatinine elevated. Patient was admitted for ERICKSON on CKD and UTI. As per urology, R sided CT changed are consistent with stent removal. Helms catheter was placed for incomplete bladder emptying. Urine culture showed Klebsiella Pneumonia with sensitivities. As per urology recommendations patient will receive a trial of Keflex, and to be discharged with a helms with a voiding trial in one week and outpatient lithotripsy will be postponed until UTI has resolved. On 03/17/16 Blood cultures returned Gram Negative Bacilli, sensitivities pending, will c/w Keflex. ERICKSON on CKD secondary to dehydration - Pt is feeling better. - Creatinine is improving, 1.7<--1.7<--1.9<--2.1<--2.5. Baseline is around 1.6. - Urology recommendations: -R. Kidney changes consistent with post uretral stent removal. Left sided stent does not need to be replaced. -PO Keflex x 2 weeks, continue flomax, leave helms in place, trial of Void in 1 week, in light of UTI reschedule ESWL to next well. - continue to hold ASA, c/w Losartan 25mg daily. - NSS @ 75mg/hr. - f/u BMP daily. UTI complicated reflected by abnormal UA and imaging - Urine culture showed Klebsiella Pneumonia, sensitivities have returned. c/w Keflex. - Blood Cultures - Gram Negative Bacilli, sensitivities pending. c/w Keflex. - Switch Keflex to 500mg TID x 14 days. Day #2 today. PCN allergy, eye swelling, monitor for 24 hours. Constipation - No CM today, additional colace ordered, continue to monitor. HTN - Noted to be high. C/w Metoprolol. c/w Losartan 25mg daily. Continue to monitor creatinine. BPH - c/w flomax CAD - c/w Metoprolol 25mg/12.5mg on alternate days. Mood - c/w Fluoxetine 40mg daily and Mirtazepine 45mg daily. Hypercholesterolemia - c/w pravastatin 40mg daily. DM2 - continue to hold glipizide, ISS initiated Dispo - DVT Proph: HepSQ - Discharge planning eval - unlikely to be able to return home. - Full Code. Resident Physician Supervision Note: I was present with the resident during the history and exam. I discussed the case with the resident and agree with the findings and plan as documented in the note. Any exceptions or clarifications are listed here: Please see my full attestation attached to the patient's discharge summary which was completed today in anticipation of discharge. Documented By: Vinh Montano Resident Involvement: Resident Care Provided Care Provided: Adult Hospital Medicine
[2016-03-18] MEDS ORDERED: DOCUSATE SODIUM 100 MG CAP PO ONE (14:00)
[2016-03-18 15:42] VITALS: BP 129/71; PULSE 58; TEMP 36.7; O2SAT 98
[2016-03-18 21:07] VITALS: BP 162/74; PULSE 73
[2016-03-18] MEDS: PRAVASTATIN SOD 40 MG TAB PO SCH (21:13)
[2016-03-18] MEDS: METOPROLOL TARTRATE 25 MG TAB PO SCH (21:17)
[2016-03-18] MEDS: LORAZEPAM 0.5 MG TAB PO PRN (21:21)
[2016-03-18] MEDS: MIRTAZAPINE TAB 15 MG TAB PO SCH (22:00)
[2016-03-18 23:23] VITALS: BP 148/67; PULSE 73; TEMP 36.7; O2SAT 94
[2016-03-19] MEDS: SODIUM CHLOR 0.45% + 20MEQ KCL 1,000 ML IV SCH ×2 (04:17→18:04)
[2016-03-19 07:03] LABS: HEMATOCRIT 33.2 % (42-52); MEAN CELL VOLUME 89.2 fL (80-100); MEAN CORPUSCULAR HGB CONC 32.5 g/dl (32-36); MEAN PLATELET VOLUME 11.3 fL (7.4-10.4); PLATELET COUNT 223 K/uL (130-400); RED BLOOD COUNT 3.72 M/uL (4.7-6.1); WHITE BLOOD COUNT 6.67 K/uL (4.8-10.8)
[2016-03-19 07:32] LABS: BUN/CREATININE RATIO 14.6 (10-20); CALCIUM 8.4 mg/dl (8.5-10.1); CREATININE 1.7 mg/dl (0.60-1.40); POTASSIUM 4.4 mmol/L (3.5-5.1)
[2016-03-19 07:53] VITALS: BP 170/86; PULSE 69; TEMP 36.7; O2SAT 95
[2016-03-19 08:05] VITALS: BP 181/73
[2016-03-19] MEDS: LOSARTAN POTASSIUM 25 MG TAB PO SCH (08:05)
[2016-03-19] MEDS: TAMSULOSIN HCL 0.4 MG CAP PO SCH ×2 (08:05→21:02)
[2016-03-19] MEDS ORDERED: METOPROLOL TARTRATE 25 MG TAB PO ONE (08:30)
[2016-03-19] MEDS ORDERED: NURSING VERBAL MED ORDER ONE (08:30)
[2016-03-19] MEDS: CEPHALEXIN MONOHYDRATE 500 MG CAP PO SCH ×3 (09:16→21:02)
[2016-03-19] MEDS: THIAMINE HCL 100 MG TAB PO SCH (09:16)
[2016-03-19] MEDS: PANTOprazole SOD 40 MG TAB PO SCH (09:16)
[2016-03-19] MEDS: FLUOXETINE HCL 20 MG CAP PO SCH (09:17)
[2016-03-19] MEDS: INSULIN ASPART 100 UNITS/ML 3 ML PEN SC SCH ×4 (09:18→21:00)
[2016-03-19] MEDS: HEPARIN SOD 5000 UNIT/0.5 ML CARP SQ SCH ×2 (09:19→21:03)
[2016-03-19 10:12] VITALS: O2SAT 95
--- NOTE | 2016-03-19 10:50 | Family Medicine Progress Note ---
Progress Note Date of Service Mar 19, 2016. Subjective Pt evaluation today including: conversation w/ patient, physical exam, chart review, lab review, review of inpatient medication list Pain: none PO Intake: good Voiding: helms catheter in place Patient sitting comfortably in bed and in no acute distress. Had no acute events overnight. Still has helms catheter in place and making approx 3L of urine/day. Is eating well and is having regular bowel movements. Blood pressure was high this morning so patient was given extra dose of BB. Still awaiting bed placement to [facility]. Most likely Monday. Constitutional: No chills, No fever, No sweats Respiratory: No cough, No shortness of breath, No sputum Cardiovascular: No chest pain, No edema, No palpitations Abdomen: No constipation, No diarrhea, No nausea, No pain, No vomiting Male : No dysuria, No urinary frequency Objective Physical Exam General Appearance: WD/WN, no apparent distress, + pertinent finding (helms catheter in place) Respiratory/Chest: chest non-tender, lungs clear, normal breath sounds, no respiratory distress Cardiovascular: regular rate, rhythm, no edema, no murmur Abdomen: normal bowel sounds, non tender, soft Extremities: non-tender, no pedal edema, no calf tenderness Neurologic/Psychiatric: alert, normal mood/affect, oriented x 3 Assessment and Plan 86 year old male admitted for ERICKSON on CKD and UTI. Has a history of kidney stones for which he has a left ureteral stent and is planned to have lithotripsy as outpatient once UTI has resolved. ERICKSON on CKD (stage 3) - Resolved - NSS 75ml/hr - Creatinine 1.7 (baseline 1.6) - losartan - follow bmp UTI - klebsiella pneumonia - keflex 500mg tid for 14 days (day 3) Nephrolithiasis - continue flomax, leave helms in place, void trial in 1 week. - SWL to be done next week Constipation - resolved - had a bowel movement yesterday - continue to monitor HTN - metoprolol (extra dose given today as bp elevated) -losartan BPH - flomax CAD - metoprolol 25/12.5 on alternate days Mood - fluoxetine and mirtazepine Hypercholesterolemia - pravastatin DMT2 - hold glipizide - ISS Dispo - DVT: Hep SQ - Discharge: HS on Monday - Full code Resident Physician Supervision Note: I was present with Dr. Arnold during the history and exam. I discussed the case with the resident and agree with the findings and plan as documented in the note. Any exceptions or clarifications are listed here: Upon my visit with the patient and Dr. Arnold, the patient is seated in bed watching TV. He has no complaints today. Does have some questions regarding disposition; he is currently awaiting inpatient rehabilitation. He also has some questions regarding his plan lithotripsy; it is now on hold pending eradication of his current infection. He has some questions regarding his Helms catheter; it will remain to falls with urology as an outpatient. I also discussed the case with the clinical pharmacist today. As noted above, the patient had 1 out of 2 blood cultures demonstrate growth of Klebsiella with a similar sensitivity to that of his urine culture. Prior to the realization of the positive blood culture, the patient had intravenous antibiotics vancomycin, Levaquin, and aztreonam. He is currently on Keflex 500 mg by mouth 3 times a day. He has no signs of bacteremia; he looks well, has been afebrile , and does not have a white blood cell count elevation. Will recheck blood cultures today. Documented By: Vinh Montano Continued [facility] stay due to: home environment unsafe for pt, other
[2016-03-19 11:09] VITALS: BP 137/71; PULSE 71; TEMP 36.4; O2SAT 96
[2016-03-19 15:29] VITALS: BP 158/65; PULSE 71; TEMP 36.8; O2SAT 97
[2016-03-19] MEDS: METOPROLOL TARTRATE 25 MG TAB PO SCH (21:02)
[2016-03-19] MEDS: PRAVASTATIN SOD 40 MG TAB PO SCH (21:02)
[2016-03-19] MEDS: MIRTAZAPINE TAB 15 MG TAB PO SCH (21:03)
[2016-03-19] MEDS: LORAZEPAM 0.5 MG TAB PO PRN (22:18)
[2016-03-20] VITALS (7 sets, daily range): BP systolic 117–179; BP diastolic 66–81; PULSE 60–71; TEMP 36.6–36.9; O2SAT 95–97
[2016-03-20 07:00] LABS: HEMATOCRIT 33.3 % (42-52); MEAN CELL VOLUME 89.5 fL (80-100); MEAN CORPUSCULAR HGB CONC 32.4 g/dl (32-36); MEAN PLATELET VOLUME 11.3 fL (7.4-10.4); PLATELET COUNT 275 K/uL (130-400); RED BLOOD COUNT 3.72 M/uL (4.7-6.1); WHITE BLOOD COUNT 7.92 K/uL (4.8-10.8)
[2016-03-20 07:19] LABS: BUN/CREATININE RATIO 15.4 (10-20); CALCIUM 8.5 mg/dl (8.5-10.1); CREATININE 1.6 mg/dl (0.60-1.40); POTASSIUM 4.6 mmol/L (3.5-5.1)
[2016-03-20] MEDS: SODIUM CHLOR 0.45% + 20MEQ KCL 1,000 ML IV SCH ×2 (08:49→21:06)
--- NOTE | 2016-03-20 09:29 | Family Medicine Progress Note ---
Progress Note Date of Service Mar 20, 2016. Subjective Pt evaluation today including: conversation w/ patient, physical exam, chart review, lab review, conversation w/ career development consultant Pain: none PO Intake: good Patient lying comfortably in bed and in no acute distress. No acute events overnight. Was unable to fall asleep until 2am and felt tired this morning. Patient wants to see his and asked if nurse could take him to see her. His BP was up this morning and we gave another dose of his metoprolol. Still awaiting placement at [facility] for rehabilitation. Constitutional: No chills, No fever, No sweats Respiratory: No cough, No shortness of breath, No sputum Cardiovascular: No chest pain, No edema, No palpitations Abdomen: No diarrhea, No nausea, No pain, No vomiting Objective Physical Exam General Appearance: WD/WN, no apparent distress Respiratory/Chest: chest non-tender, lungs clear, normal breath sounds, no respiratory distress Cardiovascular: regular rate, rhythm, no edema, no gallop Abdomen: normal bowel sounds, non tender, soft Neurologic/Psychiatric: alert, normal mood/affect, oriented x 3 Assessment and Plan 86 year old male admitted for ERICKSON on CKD and UTI. Has a history of kidney stones for which he has a left ureteral stent and is planned to have lithotripsy as outpatient once UTI has resolved. UTI - klebsiella pneumonia - keflex 500mg tid for 14 days (day 3) - BC showed klebsiella pneumonia (repeating BC as patient asymptomatic but keflex isn't optimal coverage for klebsiella, will need to change AB if blood cultures remain positive) ERICKSON on CKD (stage 3) - Resolved - NSS 75ml/hr - Creatinine 1.6 (baseline 1.6) - losartan - follow bmp Nephrolithiasis - continue flomax, leave helms in place, void trial in 1 week. - SWL to be done next week Constipation - resolved - had a bowel movement yesterday - continue to monitor HTN - metoprolol (extra dose given today as bp elevated) -losartan BPH - flomax CAD - metoprolol 25/12.5 on alternate days Mood - fluoxetine and mirtazepine Hypercholesterolemia - pravastatin DMT2 - hold glipizide - ISS Dispo - DVT: Hep SQ - Discharge: HS on Monday - Full code Resident Physician Supervision Note: I was present with Dr. Arnold during the history and exam. I discussed the case with the resident and agree with the findings and plan as documented in the note. Any exceptions or clarifications are listed here: 86-year-old male admitted with UTI and acute on chronic renal failure. He is now awaiting disposition to [facility] pending bed availability. 1 of 2 previous blood cultures was positive for Pseudomonas with similar sensitivities to the pseudomonas of his urine culture. Patient had been treated cervical IV antibiotics prior to documented growth of the blood culture , and is currently on Keflex 500 mg 3 times a day. Remains afebrile; there is no leukocytosis. The blood cultures drawn yesterday and are negative thus far. Documented By: Vinh Montano Continued [facility] stay due to: ambulation difficulties, home environment unsafe for pt
[2016-03-20] MEDS ORDERED: NURSING VERBAL MED ORDER ONE (09:30)
[2016-03-20] MEDS: LOSARTAN POTASSIUM 25 MG TAB PO SCH (09:43)
[2016-03-20] MEDS: TAMSULOSIN HCL 0.4 MG CAP PO SCH ×2 (09:43→21:10)
[2016-03-20] MEDS: PANTOprazole SOD 40 MG TAB PO SCH (09:44)
[2016-03-20] MEDS: CEPHALEXIN MONOHYDRATE 500 MG CAP PO SCH ×3 (09:44→21:11)
[2016-03-20] MEDS: FLUOXETINE HCL 20 MG CAP PO SCH (09:45)
[2016-03-20] MEDS: THIAMINE HCL 100 MG TAB PO SCH (09:45)
[2016-03-20] MEDS: INSULIN ASPART 100 UNITS/ML 3 ML PEN SC SCH ×4 (09:49→21:00)
[2016-03-20] MEDS: HEPARIN SOD 5000 UNIT/0.5 ML CARP SQ SCH ×2 (09:50→21:14)
[2016-03-20] MEDS ORDERED: METOPROLOL TARTRATE 25 MG TAB PO ONE (10:00)
[2016-03-20] MEDS: LORAZEPAM 0.5 MG TAB PO PRN (21:07)
[2016-03-20] MEDS: METOPROLOL TARTRATE 25 MG TAB PO SCH (21:09)
[2016-03-20] MEDS: MIRTAZAPINE TAB 15 MG TAB PO SCH (21:11)
[2016-03-20] MEDS: PRAVASTATIN SOD 40 MG TAB PO SCH (21:11)
[2016-03-21 07:50] LABS: HEMATOCRIT 33.6 % (42-52); MEAN CELL VOLUME 89.8 fL (80-100); MEAN CORPUSCULAR HEMOGLOBIN 29.4 pg (25-34); MEAN CORPUSCULAR HGB CONC 32.7 g/dl (32-36); MEAN PLATELET VOLUME 11.1 fL (7.4-10.4); PLATELET COUNT 274 K/uL (130-400); RED BLOOD COUNT 3.74 M/uL (4.7-6.1); WHITE BLOOD COUNT 7.08 K/uL (4.8-10.8)
[2016-03-21 08:03] VITALS: BP 152/79; PULSE 66; TEMP 36.3; O2SAT 97
[2016-03-21 08:20] LABS: BUN/CREATININE RATIO 14.1 (10-20); CALCIUM 8.7 mg/dl (8.5-10.1); CREATININE 1.6 mg/dl (0.60-1.40)
[2016-03-21] MEDS: PANTOprazole SOD 40 MG TAB PO SCH (08:47)
[2016-03-21] MEDS: THIAMINE HCL 100 MG TAB PO SCH (08:47)
[2016-03-21] MEDS: LOSARTAN POTASSIUM 25 MG TAB PO SCH (08:47)
[2016-03-21] MEDS: FLUOXETINE HCL 20 MG CAP PO SCH (08:47)
[2016-03-21] MEDS: TAMSULOSIN HCL 0.4 MG CAP PO SCH ×2 (08:47→21:20)
[2016-03-21] MEDS: CEPHALEXIN MONOHYDRATE 500 MG CAP PO SCH ×3 (08:47→21:20)
[2016-03-21] MEDS: HEPARIN SOD 5000 UNIT/0.5 ML CARP SQ SCH ×2 (08:54→21:24)
[2016-03-21] MEDS: INSULIN ASPART 100 UNITS/ML 3 ML PEN SC SCH ×4 (08:54→21:24)
[2016-03-21 08:58] VITALS: O2SAT 97
[2016-03-21] MEDS: SODIUM CHLOR 0.45% + 20MEQ KCL 1,000 ML IV SCH ×2 (10:52→23:51)
--- NOTE | 2016-03-21 14:49 | Family Medicine Progress Note ---
Progress Note Date of Service Mar 21, 2016. Subjective Pt evaluation today including: conversation w/ patient, physical exam, chart review, lab review, review of studies, review of inpatient medication list Pain: denies pain PO Intake: Adequate Voiding: helms catheter in place Patient lying in bed comfortably, no acute events, denies CP, SOB, N/V, Abdominal pain , would like to transition to [facility] when opening ready Constitutional: No chills, No fever Respiratory: No cough, No shortness of breath Cardiovascular: No chest pain, No palpitations Abdomen: No nausea, No pain, No vomiting Medications Current Inpatient Medications Medications (Trade) Dose Ordered Sig/Channing Route Start Time Stop Time Status Last Admin Dose Admin Magnesium Hydroxide (Milk Of Magnesia Susp) 30 ml Q6H PRN PO 03/14/16 15:15 04/13/16 15:14 Fluoxetine HCl (Prozac Cap) 40 mg DAILY PO 03/15/16 09:00 04/14/16 08:59 03/21/16 08:47 40 MG Metoprolol Tartrate (Lopressor Tab) 12.5 mg Q2D@2100 PO 03/14/16 21:00 04/13/16 20:59 03/20/16 21:09 12.5 MG Metoprolol Tartrate (Lopressor Tab) 25 mg Q2D@2100 PO 03/15/16 21:00 04/14/16 20:59 03/19/16 21:02 25 MG Pantoprazole Sodium (Protonix Tab) 40 mg QAM PO 03/15/16 09:00 04/14/16 08:59 03/21/16 08:47 40 MG Pravastatin Sodium (Pravachol Tab) 40 mg QPM PO 03/14/16 21:00 04/13/16 20:59 03/20/16 21:11 40 MG Tamsulosin HCl (Flomax Cap) 0.4 mg BID PO 03/14/16 21:00 04/13/16 20:59 03/21/16 08:47 0.4 MG Thiamine HCl (Vitamin B-1 Tab) 100 mg DAILY PO 03/15/16 09:00 04/14/16 08:59 03/21/16 08:47 100 MG Mirtazapine (Remeron Tab) 45 mg HS PO 03/14/16 21:00 2/1/17 20:59 03/20/16 21:11 45 MG Glucose (Glucose 40% Gel) 15-30 GRAMS 15 GRAMS... UD PRN PO 03/14/16 15:45 04/13/16 15:44 Glucose (Glucose Chew Tab) 4-8 Tablets 4 Tabl... UD PRN PO 03/14/16 15:45 04/13/16 15:44 Dextrose (Dextrose 50% 50ML Syringe) 25-50ML OF 50% DW IV FOR... UD PRN IV 03/14/16 15:45 04/13/16 15:44 Glucagon (Glucagon Inj) 1 mg UD PRN SQ 03/14/16 15:45 04/13/16 15:44 Acetaminophen (Tylenol Tab) 500 mg Q4H PRN PO 03/14/16 23:30 04/13/16 23:29 03/17/16 20:52 500 MG Heparin Sodium (Porcine) (Heparin Sq 5000 Unit/0.5ml) 5,000 unit Q12 SQ 03/15/16 21:00 04/14/16 20:59 03/21/16 08:54 5,000 UNIT Insulin Aspart (novoLOG ASPART) SLIDING SCALE G... ACHS SC 03/16/16 12:00 04/15/16 11:59 03/21/16 13:20 2 UNITS Losartan Potassium 25 mg 25 mg QAM PO 03/17/16 09:00 04/16/16 08:59 03/21/16 08:47 25 MG Potassium Chloride/Sodium Chloride (1/2 Nss + 20meq KCl 1000ml) 1,000 ml @ 75 mls/hr [id number] IV 03/16/16 17:45 04/16/16 17:44 03/21/16 10:52 75 MLS/HR Lorazepam (Ativan Tab) 0.5 mg Q4H PRN PO 03/17/16 13:45 04/16/16 13:44 03/20/16 21:07 0.5 MG Cephalexin Monohydrate (Keflex Cap) 500 mg TID PO 03/17/16 21:00 03/26/16 21:01 03/21/16 13:22 500 MG Objective Vital Signs Date Time Temp Pulse Resp B/P Pulse Ox O2 Delivery O2 Flow Rate FiO2 03/21/16 08:58 97 Room Air 1/9/17 08:32 Room Air 03/21/16 08:03 36.3 66 21 152/79 97 Room Air 03/21/16 00:20 Room Air 03/20/16 23:05 36.8 67 18 141/66 95 Room Air 03/20/16 21:16 60 174/77 03/20/16 20:00 Room Air 03/20/16 15:15 36.7 71 18 131/69 97 Room Air Physical Exam General Appearance: WD/WN, no apparent distress Eyes: normal inspection, PERRL Neck: supple, trachea midline Respiratory/Chest: chest non-tender, lungs clear Cardiovascular: regular rate, rhythm, no murmur Abdomen: normal bowel sounds, soft Extremities: normal range of motion, no pedal edema Neurologic/Psychiatric: alert, oriented x 3 Laboratory Results Results Past 24 Hours Test 03/20/16 16:38 03/20/16 20:19 03/21/16 06:39 03/21/16 07:09 Range/Units Bedside Glucose 150 136 162 70-99 mg/dl White Blood Count 7.08 4.8-10.8 K/uL Red Blood Count 3.74 4.7-6.1 M/uL Hemoglobin 11.0 14.0-18.0 g/dL Hematocrit 33.6 42-52 % Mean Corpuscular Volume 89.8 80-100 fL Mean Corpuscular Hemoglobin 29.4 25-34 pg Mean Corpuscular Hemoglobin Concent 32.7 32-36 g/dl RDW Standard Deviation 47.2 36.4-46.3 fL RDW Coefficient of Variation 14.3 11.5-14.5 % Platelet Count 274 130-400 K/uL Mean Platelet Volume 11.1 7.4-10.4 fL Sodium Level 141 136-145 mmol/L Potassium Level 5.0 3.5-5.1 mmol/L Chloride Level 110 98-107 mmol/L Carbon Dioxide Level 22 21-32 mmol/L Anion Gap 9.0 3-11 mmol/L Blood Urea Nitrogen 23 7-18 mg/dl Creatinine 1.60 0.60-1.40 mg/dl Est Creatinine Clear Calc Drug Dose 37.7 ml/min Estimated GFR () 45.2 Estimated GFR (Non- 39.0 BUN/Creatinine Ratio 14.1 10-20 Random Glucose 149 70-99 mg/dl Calcium Level 8.7 8.5-10.1 mg/dl Test 03/21/16 11:52 Range/Units Bedside Glucose 135 70-99 mg/dl Assessment and Plan 86 yo M w/; hx of Nephrolithiasis s/p L ureteral stent admitted for Acute on Chronic Kidney Disease and UTI UTI - Klebsiella pneumonia - Continue Keflex 500mg tid for 14 days (day 4) - BC previous showed klebsiella pneumonia, Repeat BC , no growth to date Acute on Chronic Kidney Disease (stage III) - Resolved - NSS 75ml/hr - Cr 1.6 <-- 1.6 ( at baseline) - Continue Losartan - F/U AM Bmp Nephrolithiasis - continue Flomax, leave helms in place per Urology , void trial in 1 week. - Lithotripsy pending UTI resolution as per Urology recommendations HTN - Continue Metoprolol, Losartan BPH - Continue Flomax CAD -Continue metoprolol 25/12.5 on alternate days Mood - Continue fluoxetine and mirtazepine Hypercholesterolemia -Continue pravastatin DMT2 -Glipizide remain held - ISS Disposition: Awaiting processing of placement at [facility]. Continued [facility] stay due to: home environment unsafe for pt Discharge planning: rehab hospital Resident Tracking Resident Involvement: Resident Care Provided Care Provided: Adult Hospital Medicine Reviewed: Pt Seen/Exam by Me History no concerns overnight Constitutional: denies: fever Respiratory: negative: short of breath Cardiovascular: denies chest pain General Appearance: no apparent distress Respiratory: lungs clear, no respiratory distress Cardiovascular: regular rate, rhythm Neurologic/Psychiatric: alert, oriented x 3 Assessment/Plan I have reviewed the medical record and performed a history and physical examination of this patient today. I have discussed the case with . The above note reflects my findings, conclusions, and recommendations with the following additions d/c IVF. await [facility] placement
[2016-03-21 15:23] VITALS: BP 108/61; PULSE 82; TEMP 36.7; O2SAT 98
[2016-03-21] MEDS: MIRTAZAPINE TAB 15 MG TAB PO SCH (21:19)
[2016-03-21] MEDS: LORAZEPAM 0.5 MG TAB PO PRN (21:19)
[2016-03-21] MEDS: METOPROLOL TARTRATE 25 MG TAB PO SCH (21:20)
[2016-03-21] MEDS: PRAVASTATIN SOD 40 MG TAB PO SCH (21:20)
[2016-03-21 23:00] VITALS: BP 153/71; PULSE 62; TEMP 36.8; O2SAT 97
[2016-03-22 06:59] VITALS: BP 170/74; PULSE 66; TEMP 36.5; O2SAT 98
[2016-03-22] MEDS: THIAMINE HCL 100 MG TAB PO SCH (09:25)
[2016-03-22] MEDS: FLUOXETINE HCL 20 MG CAP PO SCH (09:25)
[2016-03-22] MEDS: TAMSULOSIN HCL 0.4 MG CAP PO SCH ×2 (09:26→21:18)
[2016-03-22] MEDS: CEPHALEXIN MONOHYDRATE 500 MG CAP PO SCH ×3 (09:26→21:18)
[2016-03-22] MEDS: PANTOprazole SOD 40 MG TAB PO SCH (09:26)
[2016-03-22] MEDS: LOSARTAN POTASSIUM 25 MG TAB PO SCH (09:26)
[2016-03-22] MEDS: INSULIN ASPART 100 UNITS/ML 3 ML PEN SC SCH ×4 (09:30→21:00)
[2016-03-22] MEDS: HEPARIN SOD 5000 UNIT/0.5 ML CARP SQ SCH ×2 (09:31→21:25)
[2016-03-22 12:01] VITALS: BP 143/71
--- NOTE | 2016-03-22 12:36 | Clinical Documentation Query ---
GIORGIO Silva : CLINICAL DOCUMENTATION QUERY Patient is an 86 year old male admitted with UTI and "acute on chronic kidney disease (stage 3)". Unfortunately, the latter statement translates to acute kidney disease (on CKD stage 3) which is not synonymous by coding conventions with acute kidney injury/acute renal failure. Please clarify as clinically appropriate. Thank you. In your clinical opinion is this patient being managed for: (x ) Acute kidney failure/ERICKSON on CKD stage 3 ( ) Other explanation of clinical findings (Please Explain) ( ) Unable to determine (Please Define) ( ) Need to Discuss ( ) Not Agree The medical record reflects the following clinical findings, treatment, and risk factors. Clinical Indicators: As above Treatment: IVF, serial chemistries Risk Factors: nephrolithiasis, age, medications, poor intake Please clarify and document your clinical opinion in the progress notes and discharge summary. Terms such as "probable", "suspected", "likely", "questionable", "possible", or "still to be ruled out" are acceptable. IF IN AGREEMENT, YOU MUST DOCUMENT ABOVE DIAGNOSTIC STATEMENT IN DAILY PROGRESS NOTES AND DISCHARGE SUMMARY. This document is not part of the patient's record. Thank You, Evan Shultz, RN [phone]
[2016-03-22] MEDS: SODIUM CHLOR 0.45% + 20MEQ KCL 1,000 ML IV SCH (13:03)
[2016-03-22 14:51] VITALS: BP 138/76; PULSE 53; TEMP 36.7; O2SAT 97
--- NOTE | 2016-03-22 16:02 | Family Medicine Progress Note ---
Progress Note Date of Service Mar 22, 2016. Subjective Pt evaluation today including: conversation w/ patient, conversation w/ family , physical exam, chart review, lab review, review of studies, review of inpatient medication list Pain: denies pain PO Intake: adequate oral intake Voiding: helms catheter in place No acute events overnight per nurse, Pt has no complaints . He denies CP, SOB, Abdominal pain, N/V Constitutional: No chills, No fever Respiratory: No cough, No shortness of breath Cardiovascular: No chest pain, No palpitations Abdomen: No diarrhea, No nausea, No pain, No vomiting Male : No dysuria, No urinary frequency Skin: No itch, No rash Medications Current Inpatient Medications Medications (Trade) Dose Ordered Sig/Channing Route Start Time Stop Time Status Last Admin Dose Admin Magnesium Hydroxide (Milk Of Magnesia Susp) 30 ml Q6H PRN PO 03/14/16 15:15 04/13/16 15:14 Fluoxetine HCl (Prozac Cap) 40 mg DAILY PO 03/15/16 09:00 04/14/16 08:59 03/22/16 09:25 40 MG Metoprolol Tartrate (Lopressor Tab) 12.5 mg Q2D@2100 PO 03/14/16 21:00 04/13/16 20:59 03/20/16 21:09 12.5 MG Metoprolol Tartrate (Lopressor Tab) 25 mg Q2D@2100 PO 03/15/16 21:00 04/14/16 20:59 03/21/16 21:20 25 MG Pantoprazole Sodium (Protonix Tab) 40 mg QAM PO 03/15/16 09:00 04/14/16 08:59 03/22/16 09:26 40 MG Pravastatin Sodium (Pravachol Tab) 40 mg QPM PO 03/14/16 21:00 04/13/16 20:59 03/21/16 21:20 40 MG Tamsulosin HCl (Flomax Cap) 0.4 mg BID PO 03/14/16 21:00 04/13/16 20:59 03/22/16 09:26 0.4 MG Thiamine HCl (Vitamin B-1 Tab) 100 mg DAILY PO 03/15/16 09:00 04/14/16 08:59 03/22/16 09:25 100 MG Mirtazapine (Remeron Tab) 45 mg HS PO 03/14/16 21:00 04/13/16 20:59 03/21/16 21:19 45 MG Glucose (Glucose 40% Gel) 15-30 GRAMS 15 GRAMS... UD PRN PO 03/14/16 15:45 04/13/16 15:44 Glucose (Glucose Chew Tab) 4-8 Tablets 4 Tabl... UD PRN PO 03/14/16 15:45 04/13/16 15:44 Dextrose (Dextrose 50% 50ML Syringe) 25-50ML OF 50% DW IV FOR... UD PRN IV 03/14/16 15:45 04/13/16 15:44 Glucagon (Glucagon Inj) 1 mg UD PRN SQ 03/14/16 15:45 04/13/16 15:44 Acetaminophen (Tylenol Tab) 500 mg Q4H PRN PO 03/14/16 23:30 04/13/16 23:29 03/17/16 20:52 500 MG Heparin Sodium (Porcine) (Heparin Sq 5000 Unit/0.5ml) 5,000 unit Q12 SQ 03/15/16 21:00 04/14/16 20:59 03/22/16 09:31 5,000 UNIT Insulin Aspart (novoLOG ASPART) SLIDING SCALE G... ACHS SC 03/16/16 12:00 04/15/16 11:59 03/22/16 13:07 5 UNITS Losartan Potassium 25 mg 25 mg QAM PO 03/17/16 09:00 04/16/16 08:59 03/22/16 09:26 25 MG Potassium Chloride/Sodium Chloride (1/2 Nss + 20meq KCl 1000ml) 1,000 ml @ 75 mls/hr [id number] IV 03/16/16 17:45 04/16/16 17:44 03/22/16 13:03 75 MLS/HR Lorazepam (Ativan Tab) 0.5 mg Q4H PRN PO 03/17/16 13:45 04/16/16 13:44 03/21/16 21:19 0.5 MG Cephalexin Monohydrate (Keflex Cap) 500 mg TID PO 03/17/16 21:00 03/26/16 21:01 03/22/16 13:07 500 MG Objective Vital Signs Date Time Temp Pulse Resp B/P Pulse Ox O2 Delivery O2 Flow Rate FiO2 03/22/16 14:51 36.7 53 14 138/76 97 Room Air 03/22/16 12:01 143/71 03/22/16 08:30 Room Air 03/22/16 06:59 36.5 66 16 170/74 98 Room Air 03/21/16 23:13 Room Air 03/21/16 23:00 36.8 62 18 153/71 97 Room Air Physical Exam General Appearance: WD/WN, no apparent distress Eyes: normal inspection, PERRL, EOMI Neck: supple, no adenopathy Respiratory/Chest: chest non-tender, lungs clear Cardiovascular: regular rate, rhythm, no murmur Abdomen: normal bowel sounds, soft Extremities: normal range of motion Neurologic/Psychiatric: alert, normal mood/affect, oriented x 3 Skin: normal color, warm/dry Laboratory Results Results Past 24 Hours Test 03/21/16 17:08 03/21/16 21:06 03/22/16 08:20 03/22/16 12:02 Range/Units Bedside Glucose 138 184 153 185 70-99 mg/dl Assessment and Plan 86 yo M w/ hx of Nephrolithiasis s/p L ureteral stent presented with generalized weakness admitted for Acute on Chronic Kidney Disease and UTI UTI - Klebsiella pneumonia - Continue Keflex 500mg tid for 14 days (day 5) - BC previously showed klebsiella pneumonia, Repeat BC , no growth to date Acute on Chronic Kidney Disease (stage III) - Resolved - NSS 75ml/hr - Cr 1.6 (03/21/16) at baseline - Continue Losartan - F/U AM Bmp Nephrolithiasis - continue Flomax, leave helms in place per Urology , void trial in 1 week. - Lithotripsy pending UTI resolution as per Urology recommendations -Urology alerted as to patient's transition to rehab following d/c and will be in contact with patient to schedule accordingly HTN - Continue Metoprolol, Losartan BPH - Continue Flomax CAD -Continue metoprolol 25/12.5 on alternate days Depression/anxiety - Continue fluoxetine and mirtazapine Hypercholesterolemia -Continue pravastatin DMT2 -Glipizide remains held - ISS Disposition: - Awaiting placement at [facility]. Per case management, possibly will have a place tmr Continued [facility] stay due to: home environment unsafe for pt Discharge planning: rehab hospital Reviewed: Pt Seen/Exam by Me Constitutional: denies: fever Respiratory: negative: short of breath Cardiovascular: denies chest pain Gastrointestinal/Abdominal: negative: abdominal pain General Appearance: no apparent distress Respiratory: lungs clear, no respiratory distress Cardiovascular: regular rate, rhythm Gastrointestinal: normal bowel sounds, non tender, soft Neurologic/Psychiatric: alert, oriented x 3 Skin Characteristics: warm/dry Assessment/Plan I have reviewed the medical record and performed a history and physical examination of this patient today. I have discussed the case with Dr. Guerrero. The above note reflects my findings, conclusions, and recommendations
[2016-03-22 21:15] VITALS: BP 160/73; PULSE 67
[2016-03-22] MEDS: MIRTAZAPINE TAB 15 MG TAB PO SCH (21:17)
[2016-03-22] MEDS: METOPROLOL TARTRATE 25 MG TAB PO SCH (21:18)
[2016-03-22] MEDS: ACETAMINOPHEN 500 MG TAB PO PRN (21:18)
[2016-03-22] MEDS: LORAZEPAM 0.5 MG TAB PO PRN (21:18)
[2016-03-22] MEDS: PRAVASTATIN SOD 40 MG TAB PO SCH (21:18)
[2016-03-22 22:55] VITALS: BP 163/75; PULSE 58; TEMP 36.7; O2SAT 97
[2016-03-23] MEDS: SODIUM CHLOR 0.45% + 20MEQ KCL 1,000 ML IV SCH (02:12)
[2016-03-23 07:17] VITALS: BP 165/69; PULSE 70; TEMP 36.4; O2SAT 96
[2016-03-23] MEDS: THIAMINE HCL 100 MG TAB PO SCH (08:49)
[2016-03-23] MEDS: LOSARTAN POTASSIUM 25 MG TAB PO SCH (08:50)
[2016-03-23] MEDS: CEPHALEXIN MONOHYDRATE 500 MG CAP PO SCH ×2 (08:51→13:48)
[2016-03-23] MEDS: TAMSULOSIN HCL 0.4 MG CAP PO SCH (08:51)
[2016-03-23] MEDS: FLUOXETINE HCL 20 MG CAP PO SCH (08:51)
[2016-03-23] MEDS: PANTOprazole SOD 40 MG TAB PO SCH (08:51)
[2016-03-23] MEDS: HEPARIN SOD 5000 UNIT/0.5 ML CARP SQ SCH (09:02)
[2016-03-23] MEDS: INSULIN ASPART 100 UNITS/ML 3 ML PEN SC SCH ×2 (09:02→13:47)
--- NOTE | 2016-03-23 10:03 | Family Medicine Progress Note ---
Progress Note Date of Service Mar 23, 2016. Subjective Pt evaluation today including: conversation w/ patient, conversation w/ family , physical exam, chart review, lab review, review of studies, review of inpatient medication list Pain: denies pain PO Intake: adequate Voiding: helms catheter in place Pt has no complaints, no acute events overnight. denies CP,SOB, abdominal pain, N/V , urgency/frequency/hematuria would like to be discharged to [facility] Constitutional: No chills, No fever Respiratory: No cough, No shortness of breath Cardiovascular: No chest pain Abdomen: No constipation, No diarrhea, No nausea, No pain, No vomiting Male : No dysuria, No hematuria, No urinary frequency Medications Current Inpatient Medications Medications (Trade) Dose Ordered Sig/Channing Route Start Time Stop Time Status Last Admin Dose Admin Magnesium Hydroxide (Milk Of Magnesia Susp) 30 ml Q6H PRN PO 03/14/16 15:15 04/13/16 15:14 Fluoxetine HCl (Prozac Cap) 40 mg DAILY PO 03/15/16 09:00 04/14/16 08:59 03/23/16 08:51 40 MG Metoprolol Tartrate (Lopressor Tab) 12.5 mg Q2D@2100 PO 03/14/16 21:00 04/13/16 20:59 03/22/16 21:18 12.5 MG Metoprolol Tartrate (Lopressor Tab) 25 mg Q2D@2100 PO 03/15/16 21:00 04/14/16 20:59 03/21/16 21:20 25 MG Pantoprazole Sodium (Protonix Tab) 40 mg QAM PO 03/15/16 09:00 04/14/16 08:59 03/23/16 08:51 40 MG Pravastatin Sodium (Pravachol Tab) 40 mg QPM PO 03/14/16 21:00 04/13/16 20:59 03/22/16 21:18 40 MG Tamsulosin HCl (Flomax Cap) 0.4 mg BID PO 03/14/16 21:00 04/13/16 20:59 03/23/16 08:51 0.4 MG Thiamine HCl (Vitamin B-1 Tab) 100 mg DAILY PO 03/15/16 09:00 04/14/16 08:59 03/23/16 08:49 100 MG Mirtazapine (Remeron Tab) 45 mg HS PO 03/14/16 21:00 04/13/16 20:59 03/22/16 21:17 45 MG Glucose (Glucose 40% Gel) 15-30 GRAMS 15 GRAMS... UD PRN PO 03/14/16 15:45 04/13/16 15:44 Glucose (Glucose Chew Tab) 4-8 Tablets 4 Tabl... UD PRN PO 03/14/16 15:45 04/13/16 15:44 Dextrose (Dextrose 50% 50ML Syringe) 25-50ML OF 50% DW IV FOR... UD PRN IV 03/14/16 15:45 04/13/16 15:44 Glucagon (Glucagon Inj) 1 mg UD PRN SQ 03/14/16 15:45 04/13/16 15:44 Acetaminophen (Tylenol Tab) 500 mg Q4H PRN PO 03/14/16 23:30 04/13/16 23:29 03/22/16 21:18 500 MG Heparin Sodium (Porcine) (Heparin Sq 5000 Unit/0.5ml) 5,000 unit Q12 SQ 03/15/16 21:00 04/14/16 20:59 03/23/16 09:02 5,000 UNIT Insulin Aspart (novoLOG ASPART) SLIDING SCALE G... ACHS SC 03/16/16 12:00 04/15/16 11:59 03/23/16 09:02 6 UNITS Losartan Potassium 25 mg 25 mg QAM PO 03/17/16 09:00 04/16/16 08:59 03/23/16 08:50 25 MG Potassium Chloride/Sodium Chloride (1/2 Nss + 20meq KCl 1000ml) 1,000 ml @ 75 mls/hr [id number] IV 03/16/16 17:45 04/16/16 17:44 03/23/16 02:12 75 MLS/HR Lorazepam (Ativan Tab) 0.5 mg Q4H PRN PO 03/17/16 13:45 04/16/16 13:44 03/22/16 21:18 0.5 MG Cephalexin Monohydrate (Keflex Cap) 500 mg TID PO 03/17/16 21:00 03/26/16 21:01 03/23/16 08:51 500 MG Objective Vital Signs Date Time Temp Pulse Resp B/P Pulse Ox O2 Delivery O2 Flow Rate FiO2 03/23/16 08:15 Room Air 03/23/16 07:17 36.4 70 16 165/69 96 Room Air 03/22/16 23:13 Room Air 03/22/16 22:55 36.7 58 18 163/75 97 Room Air 03/22/16 21:15 67 160/73 03/22/16 15:35 Room Air 03/22/16 14:51 36.7 53 14 138/76 97 Room Air 03/22/16 12:01 143/71 Physical Exam General Appearance: WD/WN, no apparent distress Eyes: normal inspection, PERRL, EOMI Neck: supple, trachea midline Respiratory/Chest: lungs clear, normal breath sounds Cardiovascular: regular rate, rhythm, no murmur Abdomen: normal bowel sounds, non tender, soft Neurologic/Psychiatric: alert, normal mood/affect, oriented x 3 Laboratory Results Results Past 24 Hours Test 03/22/16 12:02 03/22/16 16:49 03/22/16 20:38 03/23/16 08:32 Range/Units Bedside Glucose 185 106 137 144 70-99 mg/dl Assessment and Plan 86 yo M w/ hx of Nephrolithiasis s/p L ureteral stent presented with generalized weakness admitted for Acute on Chronic Kidney Disease and UTI UTI - Klebsiella pneumonia - Continue Keflex 500mg tid for 14 days (day 6) - BC previously showed klebsiella pneumonia, Repeat BC , no growth to date Acute on Chronic Kidney Disease (stage III) - Resolved - NSS 75ml/hr -last Cr 1.6 (03/21/16) at baseline - Continue Losartan Nephrolithiasis - continue Flomax, leave helms in place per Urology , void trial in 1 week. - Lithotripsy scheduling per Urology in corrdinating with [facility] HTN - Continue Metoprolol, Losartan BPH - Continue Flomax CAD -Continue metoprolol 25/12.5 on alternate days Depression/anxiety - Continue fluoxetine and mirtazapine Hypercholesterolemia -Continue pravastatin DMT2 -Glipizide remains held - ISS Disposition: - Awaiting placement at [facility]. Per case management, possibly will have a place today Continued [facility] stay due to: home environment unsafe for pt Discharge planning: rehab hospital Resident Tracking Resident Involvement: Resident Care Provided Care Provided: Care
--- NOTE | 2016-03-23 11:42 | Discharge Instructions ---
Discharge Instructions Admission Reason for Admission: Hydronephrosis, Sirs Discharge Discharge Diagnosis / Problem: Acute on Chronic Kidney Disease stage III, UTI Discharge Goals Goal(s): Decrease discomfort, Improve function, Increase independence, Improve disease control, Improve nutritional status, Learn about illness, Diagnostic testing, Therapeutic intervention, Screening, Prevent Disease Progression, Specific goals Activity Recommendations Activity Level: Ambulates in room Therapies: Physical Therapy Lifting Limitations: gradually increase as tolerated Exercise/Sports Limitations: as tolerated Shower/Bathe: no limitations . Additional Information Patient informed of condition: Yes Advance Directives: No DNR: No Level of Care: Skilled Communicable Disease: No Prognosis: Stable Prakash Catheter: Yes Instructions / Follow-Up Instructions / Follow-Up -Maintain Prakash in place -Lithotripsy to be scheduled during rehab admission -Urology ( Dr. Eubanks) to coordinate with [facility] Diet Patient's current hospital diet: Diabetes Type 2 Diet, AHA Diet (Heart Healthy) Discharge Diet Recommended Diet: Regular Diet Pending Studies Studies pending at discharge: no Medical Emergencies . Who to Call and When: Medical Emergencies: If at any time you feel your situation is an emergency, please call 911 immediately. . Non-Emergent Contact Non-Emergency issues call your: Primary Care Provider, Urologist Call Non-Emergent contact if: you have a fever, your pain is not controlled, your pain is worsening, your pain is unusual for you, your pain is concerning you . . "Provider Documentation" section prepared by Fransico Guerrero. Core Measure Problem Core Measures: None
[2016-03-23 13:53] VITALS: BP 165/69; PULSE 70; TEMP 36.4; O2SAT 96
--- NOTE | 2016-03-24 00:22 | Discharge Summary ---
Discharge Summary Admission Date: Mar 14, 2016 at 15:25 Discharge Date: Mar 18, 2016 Discharge Disposition: Rehab ([facility]) Principal Diagnosis: Acute on Chronic Kidney disease (Stage III), AMS, UTI, Nephrolithiasis Immunizations: Have You Had Influenza Vaccine: Yes History of Tetanus Vaccine?: No History of Pneumococcal: Yes History of Hepatitis B Vaccine: No Consultations: Urology (Fransico Guerrero MD) Medication Reconciliation New Medications: Cephalexin Monohydrate (Cephalexin) 500 Mg Cap 500 MG PO TID for 11 Days, #33 CAP Continued Medications: Aspirin (Aspirin Chewable) 81 Mg Chew 81 MG PO QAM Fluoxetine HCl (Fluoxetine HCl) 20 Mg Cap 40 MG PO DAILY, #120 Glipizide (Glipizide) 10 Mg Tab 10 MG PO QAM, #45 Losartan Potassium (Cozaar) 25 Mg Tab 25 MG PO QPM, TAB Metoprolol Tartrate (Lopressor) (Lopressor) 50 Mg Tab 0.5 TAB PO Q2D, TAB ALTERNATES WITH 0.25 MG Q 2ND DAY. Metoprolol Tartrate (Lopressor) (Lopressor) 50 Mg Tab 0.25 MG PO Q2D, TAB Mirtazapine (Mirtazapine) 45 Mg Tab 45 MG PO HS, #30 Pantoprazole (Protonix) 40 Mg Tab 40 MG PO QAM, #30 TAB Pravastatin Sod (Pravastatin Sodium) 40 Mg Tab 1 TAB PO QPM Tamsulosin HCl (Tamsulosin HCl) 0.4 Mg Cap 0.4 MG PO BID, #180 Thiamine Hcl (Vitamin B-1) 100 Mg Tab 1 TAB PO DAILY Discharge Exam Review of Systems: Constitutional: No chills, No fever Respiratory: No cough, No shortness of breath Cardiovascular: No chest pain, No palpitations Abdomen: No nausea, No pain, No vomiting Genitourinary - Male: No dysuria, No hematuria, No urinary frequency, No urinary urgency Physical Exam: General Appearance: WD/WN, no apparent distress Eyes: PERRL, EOMI Neck: supple, trachea midline Respiratory/Chest: lungs clear, normal breath sounds, no respiratory distress Cardiovascular: regular rate, rhythm, no murmur Abdomen / GI: normal bowel sounds, non tender, soft Extremities: no calf tenderness, no pedal edema Neurologic/Psychiatric: alert, normal mood/affect, oriented x 3 Skin: normal color, warm/dry (Fransico Guerrero MD) Review of Systems: Constitutional: No fever Respiratory: No shortness of breath Cardiovascular: No chest pain Abdomen: No pain Physical Exam: General Appearance: no apparent distress Respiratory/Chest: lungs clear, no respiratory distress Cardiovascular: regular rate, rhythm Abdomen / GI: normal bowel sounds, non tender, soft Neurologic/Psychiatric: alert, oriented x 3 Skin: warm/dry (Monica Harris M.D.) Hospital Course This is an 86 yo m that is suffering from ERICKSON on CKD. Pt had bilateral uretal stents placed in February 2016 for obstructing kidney stones with plans for outpatient lithotripsy. R uretal stent was removed on 03/09/16, L stent remained in place. In the ER the UA was abnormal and creatinine elevated. Patient was admitted for ERICKSON on CKD and UTI. As per urology, R sided CT changed are consistent with stent removal. Helms catheter was placed for incomplete bladder emptying. Urine culture showed Klebsiella Pneumonia with sensitivities. As per urology recommendations patient will receive a trial of Keflex, and to be discharged with a helms with a voiding trial in one week and outpatient lithotripsy . On 03/17/16 Blood cultures returned Gram Negative Bacilli , sensitivities pending. Pt is discharged with an Rx of 11 days of Kelfex 500mg TID. Mental Status in the hospital improved. Pt was discharged to rehab at [facility]. Urology coordinated with [facility] for upcoming preparation/scheduling for lithotripsy. This includes examination of the patient, discharge planning, medication reconciliation, and communication with other providers. (Fransico Guerrero MD) I have reviewed the medical record and performed a history and physical examination of this patient today. I have discussed the case with Dr. Guerrero. The above note reflects my findings, conclusions, and recommendations. Total Time Spent: Greater than 30 minutes (35) (Monica Harris M.D.) Discharge Instructions Please refer to the electronic Patient Visit Report (Discharge Instructions) for additional information. (Fransico Guerrero MD) Follow-Up Urology PCP (Fransico Guerrero MD) Additional Copies To [facility]
[2016-03-31] MEDS ORDERED: LOSA1TAB PO (13:49)
[2016-03-31] MEDS ORDERED: THIA100T11 PO (13:49)
[2016-03-31] MEDS ORDERED: PRVC/40 PO (13:49)
[2016-03-31] MEDS ORDERED: TAMS0.4C38 PO (13:49)
[2016-03-31] MEDS ORDERED: LORA-741 PO (13:49)
[2016-03-31] MEDS ORDERED: PANT40TA PO (13:49)
[2016-03-31] MEDS ORDERED: METO25TA56 PO (13:49)
[2016-03-31] MEDS ORDERED: SENN-65 PO (13:49)
[2016-03-31] MEDS ORDERED: POLY335019 PO (13:49)
[2016-03-31] MEDS ORDERED: FLUO40CA8 PO (13:49)
[2016-03-31] MEDS ORDERED: MOML PO (13:49)
[2016-03-31] MEDS ORDERED: GLIP-197 PO (13:49)
[2016-03-31] MEDS ORDERED: MIRT15TA2 PO (13:49)
[2016-03-31] MEDS ORDERED: DOCU-94 PO (13:49)
[2016-03-31] MEDS ORDERED: CEPH500T PO (13:49)
[2016-03-31] MEDS ORDERED: SODIENE PR (13:49)
[2016-04-01] MEDS ORDERED: OXYC-57 PO (08:35)
[2016-04-14] MEDS ORDERED: GLIP-197 PO (10:07)
[2016-04-22] MEDS ORDERED: OXYC-57 PO (07:19)
[2016-05-27] MEDS ORDERED: OXYC-57 PO (13:11)
== END 2016-03-23 15:00 | DRG 683 ==
LOC: ENRESERVTM → ENRESERVDT → EDBD 11:58 → C.EDC 11:59 → C.MSN 15:25
PROVIDERS: ADMIT Hospitalist; ATTEND Family Medicine
DX: N17.9 Acute kidney failure, unspecified (principal); N39.0 Urinary tract infection, site not specified; E87.1 Hypo-osmolality and hyponatremia; N13.2 Hydronephrosis with renal and ureteral calculous obstruction; N18.3 Chronic kidney disease, stage 3 (moderate); I25.10 Atherosclerotic heart disease of native coronary artery without angina pectoris; E86.0 Dehydration; B96.5 Pseudomonas (aeruginosa) (mallei) (pseudomallei) as the cause of diseases classified elsewhere; B96.1 Klebsiella pneumoniae [K. pneumoniae] as the cause of diseases classified elsewhere; K59.00 Constipation, unspecified; R33.9 Retention of urine, unspecified; N40.1 Benign prostatic hyperplasia with lower urinary tract symptoms; F32.9 Major depressive disorder, single episode, unspecified; F41.9 Anxiety disorder, unspecified; E78.00 Pure hypercholesterolemia, unspecified; E11.22 Type 2 diabetes mellitus with diabetic chronic kidney disease; I12.9 Hypertensive chronic kidney disease with stage 1 through stage 4 chronic kidney disease, or unspecified chronic kidney disease; Z96.0 Presence of urogenital implants; B96.89 Other specified bacterial agents as the cause of diseases classified elsewhere; Z79.82 Long term (current) use of aspirin; Z87.891 Personal history of nicotine dependence; Z95.1 Presence of aortocoronary bypass graft; Z79.84 Long term (current) use of oral hypoglycemic drugs; Z79.899 Other long term (current) drug therapy

== ENCOUNTER → 2016-04-01 | Outpatient (CLI) | payer OTHER, MEDICARE ==
[~2016-04-01] MED LIST changes: -ASPCH81X PO; +CEPH500T PO; -CPR250 PO; +DOCU-94 PO; -DTR5 PO; -FLM4 PO; -FLUO20CA36 PO; +FLUO40CA8 PO; +GLIP-197 PO; -GLIP10TA10 PO; +LORA-741 PO; +METO25TA56 PO; -METO50TA16 PO; +MIRT15TA2 PO; +MOML PO; +OXYC-57 PO; -PHEN-1043 PO; +POLY335019 PO; -PRS5 PO; -RMRS/45 PO; +SENN-65 PO; +SODIENE PR; +TAMS0.4C38 PO; +THIA100T11 PO; -VITAMIN B12 SC
--- NOTE | 2016-04-01 08:05 | DIAGNOSTIC IMAGING REPORT ---
KUB HISTORY: N20.0 Nephrolithiasis COMPARISON: KUB 02/26/2016. Abdomen and pelvis CT 03/14/2016. FINDINGS: The bowel gas pattern is unremarkable. There are no dilated loops of small bowel to suggest an obstruction. The left ureteral stent appears negative position. Multiple bilateral renal calculi are again noted. The dominant 17 mm stone seen within the proximal left ureter now resides within the lower pole the left kidney. No ureteral calculi identified this time. Multiple pelvic calcifications remain stable and likely represent phleboliths. No pneumoperitoneum or pneumatosis. IMPRESSION: 1. The dominant 17 mm stone seen within the proximal left ureter on the prior study now resides within the lower pole of the left kidney. 2. The left ureteral stent is in good position. 3. Bilateral nephrolithiasis. Electronically signed by: Chetan Bearden M.D. 04/01/2016 8:03 AM Dictated Date/Time: 04/01/2016 8:01 AM
== END | disposition home or self-care (01) ==
LOC: C.RAD 06:57
PROVIDERS: ATTEND Urology
DX: N20.0 Calculus of kidney (principal)

== ENCOUNTER → 2016-04-01 | Day surgery (SDC) | payer OTHER, MEDICARE ==
[2016-03-31 13:02] VITALS: Ht 182.9 cm; Wt 79.5 kg
[~2016-04-01] VITALS: Ht 182.9 cm; Wt 79.5 kg
[~2016-04-01] MED LIST changes: +ATROPINE SULFATE 0.1 MG/ML 5ML SYR IV PRN; +CIPROFLOXACIN / D5W 400 MG IV SCH; +EpHEDrine SULFATE INJ 50 MG/ML AMP IV PRN; +FENTANYL CITRATE INJ 50 MCG/1 ML 2 ML VIAL IV PRN; +FENTANYL CITRATE INJ 50 MCG/1 ML 2 ML VIAL ONE; +LACTATED RINGER'S 1000ML 1,000 ML IV SCH; +LIDOCAINE HCL 2% 2 ML VIAL (20MG/ML) ONE; +ONDANSETRON INJ 2 MG/ML 2 ML VIAL IV PRN; +ONDANSETRON INJ 2 MG/ML 2 ML VIAL ONE; +OXYCODONE/ACETAMINOPHEN 5-325 TAB PO PRN; +PROPOFOL IV EMULSION 10 MG/ML 20 ML VIAL IV ONE
--- NOTE | 2016-04-01 07:59 | History & Physical Bridge Note ---
H&P Re-Evaluation Bridge Note: I have examined the patient, reviewed the History & Physical and in the interval since the performance of the History & Physical I have noted the following changes of clinical significance: No changes noted
--- NOTE | 2016-04-01 08:34 | [facility] Post Operative Brief Note ---
Immediate Operative Summary Operative Date Apr 01, 2016. Pre-Operative Diagnosis left renal stones Post-Operative Diagnosis same Procedure(s) Performed left eswl Surgeon patrick Brass Molder Helper Surgeon(s) none Estimated Blood Loss none Findings left stones Specimens none
--- NOTE | 2016-04-01 08:36 | Discharge Instructions-SurgCtr ---
Discharge Instructions Visit Reason for Visit: Stones Discharge Discharge Diagnosis / Problem: stone Discharge Goals Goal(s): Therapeutic intervention Activity Recommendations Activity Limitations: resume your previous activity (take it easy today) Anesthesia . Post Anesthesia Instructions: If you have had General Anesthesia or IV Sedation: * Do not drive today. * Resume driving when surgeon permits. * Do not make important decisions or sign legal documents today. * Call surgeon for: 1. Temperature elevations greater than 101 degrees F. 2. Uncontrollable pain. 3. Excessive bleeding. 4. Persistent nausea and vomiting. 5. Medication intolerance (nausea, vomiting or rash). * For nausea and vomiting use only clear liquids such as: tea, soda, bouillon until nausea subsides, then gradually increase diet as tolerated. * If you have any concerns or questions, call your surgeon's office. If physician is unavailable and it is an emergency, call 911 or go to the nearest emergency room. . Instructions / Follow-Up Instructions / Follow-Up MEDICATIONS: Resume previous medications unless instructed otherwise by your surgeon. Resume pre-ESWL medication except for aspirin, coumadin or other blood thinners. __ Toradol 10 mg every 6 hours for initial pain. __ Lortab 5 mg 1-2 every 4 hours for pain. _x_ Percocet 5 mg 1-2 every 4 hours for pain. __ Macrodantin 50 mg x 3 a day. __ Flomax 1 tab daily one half (1/2) hour after supper. SPECIAL CARE INSTRUCTIONS: 1. Get KUB (x-ray) _x_ day before or day of office visit and bring x-ray to office __ get x-ray 2 days before and tell office you are getting x-rays when you call for the appointment. 2. Strain ALL urine. 3. Please call if you have a fever, chills, severe pain, or constant dribbling of urine. 4. Office phone number . FOLLOW UP VISIT: Please call the office to schedule a follow-up appointment at . Diet Recommendations Home Diet: resume previous diet Procedures Procedures Performed: left eswl Pending Studies Studies pending at discharge: no Medical Emergencies . Who to Call and When: Medical Emergencies: If at any time you feel your situation is an emergency, please call 911 immediately. . Non-Emergent Contact Non-Emergency issues call your: Urologist . . "Provider Documentation" section prepared by Lopez Henry. [facility] Drug Monitoring Program Search Results: patient reviewed within database
[2016-04-01 10:00] VITALS: TEMP 36.1
--- NOTE | 2016-04-01 10:14 | Anesthesia Progress Nt - [facility] ---
Anesthesia Post Op Note Date & Time Apr 01, 2016 at 10:14 Vital Signs Pain Intensity: 0 Vital Signs Past 12 Hours Date Time Temp Pulse Resp B/P Pulse Ox O2 Delivery O2 Flow Rate FiO2 04/01/16 10:00 36.1 59 16 160/77 99 Room Air 04/01/16 09:39 67 9 98 04/01/16 09:39 67 9 04/01/16 09:38 66 12 04/01/16 09:38 66 12 98 04/01/16 09:35 36.6 71 20 159/82 98 Room Air 04/01/16 09:34 159/82 04/01/16 09:33 74 15 04/01/16 09:33 75 15 98 04/01/16 09:29 146/69 04/01/16 09:28 69 9 97 04/01/16 09:28 69 9 04/01/16 09:23 77 9 04/01/16 09:23 77 9 170/68 98 04/01/16 09:18 72 12 04/01/16 09:18 72 12 146/66 100 04/01/16 09:13 73 14 140/64 100 04/01/16 09:13 73 14 04/01/16 09:08 74 13 04/01/16 09:08 75 13 138/59 98 04/01/16 09:03 72 22 122/53 98 04/01/16 09:03 36.8 72 16 123/57 96 Diffusion Mask 6 04/01/16 09:03 72 22 04/01/16 07:47 36.9 73 18 155/76 97 Room Air Notes Mental Status: alert / awake / arousable, participated in evaluation Pt Amnestic to Procedure: Yes Nausea / Vomiting: adequately controlled Pain: adequately controlled Airway Patency, RR, SpO2: stable & adequate BP & HR: stable & adequate Hydration State: stable & adequate Anesthetic Complications: no major complications apparent
[2016-04-01 10:55] VITALS: BP 140/67; PULSE 75; O2SAT 95
--- NOTE | 2016-04-05 13:38 | OPERATIVE REPORT ---
DATE OF OPERATION: 04/01/2016 PREOPERATIVE DIAGNOSIS: Left renal calculus. POSTOPERATIVE DIAGNOSIS: Same. PROCEDURE: Extracorporeal shockwave lithotripsy. FINDINGS: KUB showed stone left kidney. SURGEON: Dr. Henry. ANESTHESIA: General. DRAINS: None. COMPLICATIONS: None. SPECIMENS: None. INDICATIONS: The patient is an 86-year-old white male with a left renal stone being brought in for ESWL. DETAILS OF PROCEDURE: The patient was brought to the litho suite. He was correctly identified and the stone was visualized on his most recent x-rays. After the correct time out was performed the patient was positioned over the therapy head. An adequate level of anesthesia was administered. The extracorporeal shockwave lithotripsy treatment was then commenced. Please see the [place] Kidney Stone Management sheet for complete treatment summary. After completion of the procedure the patient was taken to the recovery room in stable condition. I attest to the content of the Intraoperative Record and any orders documented therein. Any exceptio ns are noted below.
== END | disposition home or self-care (01) ==
LOC: X.SURG 07:27
PROVIDERS: ATTEND Urology
DX: N20.0 Calculus of kidney (principal); R10.9 Unspecified abdominal pain; E11.9 Type 2 diabetes mellitus without complications; K25.9 Gastric ulcer, unspecified as acute or chronic, without hemorrhage or perforation; R19.7 Diarrhea, unspecified; D64.9 Anemia, unspecified

== ENCOUNTER 2016-04-07 02:17 | Emergency (ER) | payer OTHER, MEDICARE ==
[~2016-04-07 02:17] MED LIST changes: -ATROPINE SULFATE 0.1 MG/ML 5ML SYR IV PRN; -CIPROFLOXACIN / D5W 400 MG IV SCH; -EpHEDrine SULFATE INJ 50 MG/ML AMP IV PRN; -FENTANYL CITRATE INJ 50 MCG/1 ML 2 ML VIAL IV PRN; -FENTANYL CITRATE INJ 50 MCG/1 ML 2 ML VIAL ONE; -LACTATED RINGER'S 1000ML 1,000 ML IV SCH; -LIDOCAINE HCL 2% 2 ML VIAL (20MG/ML) ONE; -ONDANSETRON INJ 2 MG/ML 2 ML VIAL IV PRN; -ONDANSETRON INJ 2 MG/ML 2 ML VIAL ONE; -OXYCODONE/ACETAMINOPHEN 5-325 TAB PO PRN; -PROPOFOL IV EMULSION 10 MG/ML 20 ML VIAL IV ONE
[2016-04-07] MEDS ORDERED: ONDANSETRON INJ 2 MG/ML 2 ML VIAL ONE (03:43)
--- NOTE | 2016-04-07 04:31 | EMERGENCY ROOM VISIT NOTE ---
History Report prepared by Rajiv: Geovanna Cornejo Under the Supervision of: Dr. Nancy Nair M.D. Chief Complaint: NAUSEA History of Present Illness The patient is a 86 year old male who presents to the Emergency Room with complaints of intermittent vomiting for the past 4 hours. He states that he started to feel unwell around 2100 after dinner. He developed nausea, vomiting, and diarrhea. He has had 3 episodes of vomiting. His daughter gave him Zofran, but he vomited shortly afterwards. The patient last vomited about 1 hour LINE PALLETIZER. He is feeling dry and dehydrated. He denies any blood in his vomit or stool. The patient does not take any blood thinners. Per daughter, the patient was admitted to the hospital at the beginning of the month for sepsis. He had a lithotripsy last week. He has been doing well since both of these incidences. He is not currently on antibiotics. Source of History: patient, family (daughter) Onset: 4 hours LINE PALLETIZER Position: abdomen Quality: other (vomiting) Timing: intermittent Associated Symptoms: + diarrhea, + nausea Note: Pt feels dry and dehydrated. Review of Systems See HPI for pertinent positives & negatives. A total of 10 systems reviewed and were otherwise negative. Past Medical & Surgical Medical Problems: (1) Coronary artery disease (2) Diabetes (3) Hydronephrosis (4) Hypertension (5) SIRS (systemic inflammatory response syndrome) Surgical Problems: (1) S/P CABG (coronary artery bypass graft) Family History Myocardial infarction FATHER MOTHER No Family History of: Kidney stones Social History Smoking Status: Former Smoker Drug Use: none Marital Status: Housing Status: lives with family Occupation Status: retired Current/Historical Medications Scheduled Cephalexin (Cephalexin), 1 TAB PO TID Docusate Sodium (Colace), 1 CAP PO BID Fluoxetine (Prozac), 40 MG PO DAILY Glipizide (Glipizide Er), 2 TAB PO AC Losartan Potassium (Cozaar), 1 TAB PO QPM Metoprolol Tartrate (Lopressor) (Lopressor), 0.5 TAB PO Q2D Metoprolol Tartrate (Lopressor) (Lopressor), 25 MG PO Q2D Mirtazapine Soltab (Remeron Soltab), 3 TAB PO HS Pantoprazole (Protonix), 40 MG PO DAILY AT 1630 Pravastatin Sod (Pravastatin Sodium), 1 TAB PO DAILY AT 1700 Tamsulosin Hcl (Flomax), 0.4 MG PO BID Thiamine Hcl (Vitamin B-1), 100 MG PO AC Scheduled PRN Lorazepam (Ativan), 0.5 MG PO QPM PRN for NX Magnesium Hydroxide (Milk Of Magnesia), 30 ML PO DIRECTED PRN for Constipation Oxycodone/Acetaminophen 5MG/325MG (Percocet 5MG/325MG), 1-2 TABLETS PO Q4H PRN for Pain Polyethylene Glycol 3350 (Miralax), 17 GM PO DAILY PRN for Constipation Senna/Docusate Sod (Senokot S), 1 TAB PO DAILY PRN for Constipation Sodium Phosphate/Biphosphate (Fleet Enema), 1 EA ID DAILY PRN for Constipation Allergies Coded Allergies: Penicillins (Verified Allergy, Mild, MARGINAL, 04/01/16) MARGINAL Physical Exam Vital Signs Date Time Temp Pulse Resp B/P Pulse Ox O2 Delivery O2 Flow Rate FiO2 04/07/16 04:47 84 18 153/62 95 Physical Exam Vital signs reviewed. General: Well-appearing 86-year-old male, in no significant distress. HEENT: No scleral icterus, PERRLA, neck supple. Atraumatic. Cardiovascular: Regular rate and rhythm, no extra sounds. Pulmonary: Clear to auscultation bilaterally, normal work of breathing. Abdomen: Soft, nontender, nondistended, positive bowel sounds. Musculoskeletal: Atraumatic, no peripheral edema. Neurologic: Patient awake alert and oriented x 3, full strength in all 4 extremities. Cranial nerves 2 through 12 grossly intact. Skin: Warm, dry, no rash Medical Decision & Procedures ER Provider Diagnostic Interpretation: Chest/2-view abdominal x-ray as interpreted by myself reveals no focal lung consolidation, no failure, no pleural effusion, post-sternotomy changes, no obstruction, no free air. Laboratory Results 04/07/16 03:07 Red Blood Count 3.81, Mean Corpuscular Volume 89.0, Mean Corpuscular Hemoglobin 29.9, Mean Corpuscular Hemoglobin Concent 33.6, Mean Platelet Volume 11.4, Neutrophils (%) (Auto) 85.5, Lymphocytes (%) (Auto) 4.3, Monocytes (%) (Auto) 6.2, Eosinophils (%) (Auto) 3.6, Basophils (%) (Auto) 0.1, Neutrophils # (Auto) 6.36, Lymphocytes # (Auto) 0.32, Monocytes # (Auto) 0.46, Eosinophils # (Auto) 0.27, Basophils # (Auto) 0.01 04/07/16 03:55 Test 04/07/16 03:07 04/07/16 03:55 White Blood Count 7.44 K/uL (4.8-10.8) Red Blood Count 3.81 M/uL (4.7-6.1) Hemoglobin 11.4 g/dL (14.0-18.0) Hematocrit 33.9 % (42-52) Mean Corpuscular Volume 89.0 fL (80-100) Mean Corpuscular Hemoglobin 29.9 pg (25-34) Mean Corpuscular Hemoglobin Concent 33.6 g/dl (32-36) Platelet Count 126 K/uL (130-400) Mean Platelet Volume 11.4 fL (7.4-10.4) Neutrophils (%) (Auto) 85.5 % Lymphocytes (%) (Auto) 4.3 % Monocytes (%) (Auto) 6.2 % Eosinophils (%) (Auto) 3.6 % Basophils (%) (Auto) 0.1 % Neutrophils # (Auto) 6.36 K/uL (1.4-6.5) Lymphocytes # (Auto) 0.32 K/uL (1.2-3.4) Monocytes # (Auto) 0.46 K/uL (0.11-0.59) Eosinophils # (Auto) 0.27 K/uL (0-0.5) Basophils # (Auto) 0.01 K/uL (0-0.2) RDW Standard Deviation 47.5 fL (36.4-46.3) RDW Coefficient of Variation 14.7 % (11.5-14.5) Immature Granulocyte % (Auto) 0.3 % Immature Granulocyte # (Auto) 0.02 K/uL (0.00-0.02) Anion Gap 13.0 mmol/L (3-11) Estimated GFR () 32.5 Estimated GFR (Non- 28.1 BUN/Creatinine Ratio 16.9 (10-20) Calcium Level 8.6 mg/dl (8.5-10.1) Magnesium Level 1.9 mg/dl (1.8-2.4) Total Bilirubin 0.4 mg/dl (0.2-1) Direct Bilirubin < 0.1 mg/dl (0-0.2) Aspartate Amino Transf (AST/SGOT) 19 U/L (15-37) Alanine Aminotransferase (ALT/SGPT) 25 U/L (12-78) Alkaline Phosphatase 78 U/L (45-117) Total Protein 6.9 gm/dl (6.4-8.2) Albumin 3.4 gm/dl (3.4-5.0) Lipase 94 U/L (73-393) Laboratory results per my review. Medications Administered Medications (Trade) Dose Ordered Sig/Channing Route Start Time Stop Time Status Last Admin Dose Admin Ondansetron HCl (ZOFRAN ODT 4MG Home Pack) 1 homepack UD ONCE PO 04/07/16 05:30 04/07/16 05:31 DC 04/07/16 05:30 1 HOMEPACK ED Course 0240: Past medical records reviewed. The patient was evaluated in room A3. A complete history and physical examination was performed. 0524: I reassessed the patient at this time. He is feeling better and resting comfortably. I discussed the results and treatment plan with the patient. I answered all pertaining questions that he had. He expressed understanding and verbalized agreement. The patient will be discharged home. 0530: Zofran 4 mg PO 1 homepack Medical Decision Differential diagnosis: Etiologies such as gastroenteritis, food borne illness, infections, appendicitis , diverticulitis, inflammatory bowel disease, obstruction, GI bleed, biliary pathology, as well as others were entertained. This pt was evaluated and appeared to be in no distress. IV access was obtained and lab work was drawn. Abd XR series was obtained and to my interpretation reveals no obstruction or FA. Lab work reveals a mild anemia and renal insufficiency with creat of 2.1. Pt was medicated with IV zofran and hydrated with NSS. He was feeling much improved, had no further vomiting or diarrhea in the dept. He and his daughter were anxious for d./c. He was informed of the lab findings and asked to f/u closely with his PCP and urologist for reevaluation. I suspect the etiology is viral today. He will return to the ED for worsening of symptoms or any medical concerns. Of note this pt was seen during EMR downtime, please refer to that paperwork for further documentation. Impression Primary Impression: Nausea vomiting and diarrhea Scribe Attestation The scribe's documentation has been prepared under my direction and personally reviewed by me in its entirety. I confirm that the note above accurately reflects all work, treatment, procedures, and medical decision making performed by me. Departure Information Dispostion Home / Self-Care Referrals Vinh Montano D.O. (PCP) Chapo Brand D.O. Forms HOME CARE DOCUMENTATION FORM, IMPORTANT VISIT INFORMATION Patient Instructions [facility] Additional Instructions Diagnosis: Nausea, vomiting and diarrhea Drink plenty of clear fluids. Zofran 4 mg ODT every 6 hours as needed for nausea. Contact your physician for reevaluation this week. You will need repeat laboratory work to evaluate your kidney function. Return to the ER for worsening of symptoms or any medical concerns.
[2016-04-07 04:47] VITALS: BP 153/62; PULSE 84; O2SAT 95
[2016-04-07 04:57] LABS: BASO % 0.1 %; BASO ABS # 0.01 K/uL (0-0.2); COMPLETE YES; EOS % 3.6 %; HEMATOCRIT 33.9 % (42-52); IG% 0.3 %; LYMPH % 4.3 %; LYMPH ABS # 0.32 K/uL (1.2-3.4); MEAN CORPUSCULAR HEMOGLOBIN 29.9 pg (25-34); MEAN CORPUSCULAR HGB CONC 33.6 g/dl (32-36); MEAN PLATELET VOLUME 11.4 fL (7.4-10.4); MONO % 6.2 %; NEUT % 85.5 %; PLATELET COUNT 126 K/uL (130-400); RED BLOOD COUNT 3.81 M/uL (4.7-6.1); WHITE BLOOD COUNT 7.44 K/uL (4.8-10.8)
[2016-04-07 04:58] LABS: ALKALINE PHOSPHATASE 78 U/L (45-117); ALT/SGPT 25 U/L (12-78); AST/SGOT 19 U/L (15-37); BLOOD UREA NITROGEN 36 mg/dl (7-18); CALCIUM 8.6 mg/dl (8.5-10.1); CARBON DIOXIDE 21 mmol/L (21-32); CHLORIDE 109 mmol/L (98-107); MAGNESIUM 1.9 mg/dl (1.8-2.4); POTASSIUM 4.7 mmol/L (3.5-5.1); SODIUM 143 mmol/L (136-145)
[2016-04-07 05:00] LABS: BUN/CREATININE RATIO 16.9 (10-20); GLUCOSE 228 mg/dl (70-99)
[2016-04-07] MEDS ORDERED: ONDANSETRON HOME PACK 4MG OD TAB PO ONE (05:30)
--- NOTE | 2016-04-07 07:55 | DIAGNOSTIC IMAGING REPORT ---
CHEST AND ABDOMEN 2 VIEWS HISTORY: Nausea. Vomiting. Diarrhea. COMPARISON: KUB 04/01/2016. FINDINGS: The lungs are clear. There are poststernotomy changes. The heart is normal in size. No pneumoperitoneum. No pneumatosis. Bilateral nephrolithiasis. Interval fragmentation of the dominant stone within the lower pole the left kidney. A left ureteral stent is in good position. There are 3 stones within the proximal left ureter with the largest measuring 9 mm. These are new from the prior study. Relative paucity of small bowel gas which results in suboptimal evaluation. No definite dilated loops of bowel to suggest an obstruction. Small fluid levels seen throughout the colon. IMPRESSION: 1. No acute process within the chest. 2. Interval fragmentation of the dominant stone within the lower pole the left kidney. There are now 3 stones within the proximal left ureter with the largest measuring 9 mm. 3. Left ureteral stent appears in good position. 4. Bilateral nephrolithiasis. 5. Relative paucity of small bowel gas which results in suboptimal evaluation. No definite dilated loops of bowel to suggest an obstruction. Electronically signed by: Chetan Bearden M.D. 04/07/2016 7:54 AM Dictated Date/Time: 04/07/2016 7:50 AM
[2016-04-14] MEDS ORDERED: GLIP-197 PO (10:07)
[2016-04-22] MEDS ORDERED: OXYC-57 PO (07:19)
[2016-05-27] MEDS ORDERED: OXYC-57 PO (13:11)
== END 2016-04-07 05:19 | disposition home or self-care (01) ==
LOC: C.EDA 02:17
DX: R11.2 Nausea with vomiting, unspecified (principal); R19.7 Diarrhea, unspecified; I25.10 Atherosclerotic heart disease of native coronary artery without angina pectoris; E11.9 Type 2 diabetes mellitus without complications; I10 Essential (primary) hypertension; R65.10 Systemic inflammatory response syndrome (SIRS) of non-infectious origin without acute organ dysfunction; Z95.1 Presence of aortocoronary bypass graft; Z82.49 Family history of ischemic heart disease and other diseases of the circulatory system; Z87.891 Personal history of nicotine dependence; Z79.899 Other long term (current) drug therapy

== ENCOUNTER → 2016-04-11 | Outpatient (CLI) | payer OTHER, MEDICARE | END | disposition home or self-care (01) | LOC: C.LABSPEC 17:28 | PROVIDERS: ATTEND Urology | DX: N20.0 Calculus of kidney (principal) ==

== ENCOUNTER → 2016-04-22 | Day surgery (SDC) | payer OTHER, MEDICARE ==
[2016-04-14 10:07] VITALS: Ht 182.9 cm; Wt 84.1 kg
[~2016-04-22] VITALS: Ht 182.9 cm; Wt 84.1 kg
[~2016-04-22] MED LIST changes: +ATROPINE SULFATE 0.1 MG/ML 5ML SYR IV PRN; -CEPH500T PO; +CIPROFLOXACIN 400MG / D5W IV SCH; +DEXAMETHASONE SOD INJ 4 MG/ML VIAL ONE; -DOCU-94 PO; +EpHEDrine SULFATE INJ 50 MG/ML AMP IV PRN; +FENTANYL CITRATE INJ 50 MCG/1 ML 2 ML VIAL IV PRN; +FENTANYL CITRATE INJ 50 MCG/1 ML 2 ML VIAL ONE; +LABETALOL HCL IV 5 MG/ML 20ML IV PRN; +LACTATED RINGER'S 1000ML 1,000 ML IV SCH; +LIDOCAINE HCL 2% 2 ML VIAL (20MG/ML) ONE; -LORA-741 PO; +MIDAZOLAM HCL 1 MG/ML 2ML VIAL ONE; -MOML PO; +NALOXONE HCL 0.4 MG/1 ML VIAL/CARP IV PRN; +ONDANSETRON INJ 2 MG/ML 2 ML VIAL IV PRN; +ONDANSETRON INJ 2 MG/ML 2 ML VIAL ONE; +OXYCODONE/ACETAMINOPHEN 5-325 TAB PO PRN; -POLY335019 PO; +PROMETHAZINE HCL INJ 12.5 MG in SODIUM CHLORIDE 0.9% 50ML 50 ML IV PRN; +PROPOFOL IV EMULSION 10 MG/ML 20 ML VIAL IV ONE; -SENN-65 PO; -SODIENE PR
--- NOTE | 2016-04-22 07:18 | [facility] Post Operative Brief Note ---
Immediate Operative Summary Operative Date Apr 22, 2016. Pre-Operative Diagnosis Left ureteral stones Post-Operative Diagnosis same Procedure(s) Performed left eswl Surgeon patrick Umbrella Frame Maker Surgeon(s) none Estimated Blood Loss none Findings left ureteral stones Specimens none
--- NOTE | 2016-04-22 07:21 | Discharge Instructions-SurgCtr ---
Discharge Instructions Visit Reason for Visit: Stones Discharge Discharge Diagnosis / Problem: stones Discharge Goals Goal(s): Therapeutic intervention Medications Stopped Medications Name(s): PATIENT UNSURE Activity Recommendations Activity Limitations: resume your previous activity (take it easy today) Anesthesia . Post Anesthesia Instructions: If you have had General Anesthesia or IV Sedation: * Do not drive today. * Resume driving when surgeon permits. * Do not make important decisions or sign legal documents today. * Call surgeon for: 1. Temperature elevations greater than 101 degrees F. 2. Uncontrollable pain. 3. Excessive bleeding. 4. Persistent nausea and vomiting. 5. Medication intolerance (nausea, vomiting or rash). * For nausea and vomiting use only clear liquids such as: tea, soda, bouillon until nausea subsides, then gradually increase diet as tolerated. * If you have any concerns or questions, call your surgeon's office. If physician is unavailable and it is an emergency, call 911 or go to the nearest emergency room. . Instructions / Follow-Up Instructions / Follow-Up MEDICATIONS: Resume previous medications unless instructed otherwise by your surgeon. Resume pre-ESWL medication except for aspirin, coumadin or other blood thinners. __ Toradol 10 mg every 6 hours for initial pain. __ Lortab 5 mg 1-2 every 4 hours for pain. _x_ Percocet 5 mg 1-2 every 4 hours for pain. __ Macrodantin 50 mg x 3 a day. __ Flomax 1 tab daily one half (1/2) hour after supper. SPECIAL CARE INSTRUCTIONS: 1. Get KUB (x-ray) _x_ day before or day of office visit and bring x-ray to office __ get x-ray 2 days before and tell office you are getting x-rays when you call for the appointment. 2. Strain ALL urine. 3. Please call if you have a fever, chills, severe pain, or constant dribbling of urine. 4. Office phone number . FOLLOW UP VISIT: Please call the office to schedule a follow-up appointment at . Diet Recommendations Home Diet: resume previous diet Procedures Procedures Performed: left eswl Pending Studies Studies pending at discharge: no Medical Emergencies . Who to Call and When: Medical Emergencies: If at any time you feel your situation is an emergency, please call 911 immediately. . Non-Emergent Contact Non-Emergency issues call your: Urologist . . "Provider Documentation" section prepared by Lopez Henry. [facility] Drug Monitoring Program Search Results: patient reviewed within database
[2016-04-22 08:31] VITALS: TEMP 36.5
--- NOTE | 2016-04-22 08:48 | Anesthesia Progress Nt - [facility] ---
Anesthesia Post Op Note Date & Time Apr 22, 2016 at 08:47 Vital Signs Pain Intensity: 0 Vital Signs Past 12 Hours Date Time Temp Pulse Resp B/P Pulse Ox O2 Delivery O2 Flow Rate FiO2 04/22/16 08:31 36.5 81 16 156/70 94 Room Air 04/22/16 08:21 84 15 93 04/22/16 08:21 83 15 04/22/16 08:18 146/70 04/22/16 08:16 36.6 94 16 150/68 94 Room Air 04/22/16 08:16 87 19 94 04/22/16 08:16 87 19 04/22/16 08:13 150/68 04/22/16 08:11 87 14 04/22/16 08:11 86 14 95 04/22/16 08:08 147/65 04/22/16 08:06 86 16 04/22/16 08:06 85 16 98 04/22/16 08:03 139/62 04/22/16 08:01 85 14 99 04/22/16 08:01 85 14 04/22/16 08:00 83 15 99 04/22/16 08:00 84 15 04/22/16 07:58 145/70 04/22/16 07:55 87 5 04/22/16 07:55 86 5 94 04/22/16 07:55 36.6 87 16 146/78 99 Mask 8 04/22/16 06:34 36.9 80 16 154/98 98 Room Air Notes Mental Status: alert / awake / arousable, participated in evaluation Pt Amnestic to Procedure: Yes Nausea / Vomiting: adequately controlled Pain: adequately controlled Airway Patency, RR, SpO2: stable & adequate BP & HR: stable & adequate Hydration State: stable & adequate Anesthetic Complications: no major complications apparent
[2016-04-22 08:55] VITALS: BP 158/75; PULSE 80; O2SAT 96
--- NOTE | 2016-04-22 14:00 | DIAGNOSTIC IMAGING REPORT ---
KUB CLINICAL HISTORY: R05 [id number] nephrocalcinosis COMPARISON STUDY: No previous studies for comparison. FINDINGS: Left ureteral stent. Multiple left renal calcifications lower pole with multiple calcifications along the proximal aspect of the left ureter. Right renal shadow several cysts show several microcalcifications. IMPRESSION: 1. Multiple calcifications overlying lower pole left kidney as well as peripheral right kidney 2. Left ureteral stent with multiple calcifications adjacent to the proximal and mid stent within the left proximal to mid left ureter Electronically signed by: Jamil Thomas M.D. 04/22/2016 1:58 PM Dictated Date/Time: 04/21/2016 3:54 PM
--- NOTE | 2016-04-26 18:54 | OPERATIVE REPORT ---
DATE OF OPERATION: 04/22/2016 PREOPERATIVE DIAGNOSIS: Left ureteral calculus. POSTOPERATIVE DIAGNOSIS: Same. PROCEDURE: Extracorporeal shockwave lithotripsy. FINDINGS: KUB showed stone left ureter. SURGEON: Dr. Henry. ANESTHESIA: General. DRAINS: None. COMPLICATIONS: None. SPECIMENS: None. INDICATIONS: The patient is an 86-year-old white male with a left ureteral stone, being brought in for ESWL. DETAILS OF PROCEDURE: The patient was brought to the litho suite. He was correctly identified and the stone was visualized on his most recent x-rays. After the correct time out was performed the patient was positioned over the therapy head. An adequate level of anesthesia was administered. The extracorporeal shockwave lithotripsy treatment was then commenced. Please see the [facility] sheet for complete treatment summary. After completion of the procedure the patient was taken to the recovery room in stable condition. I attest to the content of the Intraoperative Record and any orders documented therein. Any exceptio ns are noted below.
== END | disposition home or self-care (01) ==
LOC: X.SURG 06:04
PROVIDERS: ATTEND Urology
DX: N20.2 Calculus of kidney with calculus of ureter (principal); D64.9 Anemia, unspecified; E11.9 Type 2 diabetes mellitus without complications; K25.9 Gastric ulcer, unspecified as acute or chronic, without hemorrhage or perforation; Z98.890 Other specified postprocedural states; Z87.891 Personal history of nicotine dependence

== ENCOUNTER → 2016-05-05 | Outpatient (CLI) | payer OTHER, MEDICARE ==
[~2016-05-05] MED LIST changes: -ATROPINE SULFATE 0.1 MG/ML 5ML SYR IV PRN; -CIPROFLOXACIN 400MG / D5W IV SCH; -DEXAMETHASONE SOD INJ 4 MG/ML VIAL ONE; -EpHEDrine SULFATE INJ 50 MG/ML AMP IV PRN; -FENTANYL CITRATE INJ 50 MCG/1 ML 2 ML VIAL IV PRN; -FENTANYL CITRATE INJ 50 MCG/1 ML 2 ML VIAL ONE; -LABETALOL HCL IV 5 MG/ML 20ML IV PRN; -LACTATED RINGER'S 1000ML 1,000 ML IV SCH; -LIDOCAINE HCL 2% 2 ML VIAL (20MG/ML) ONE; -MIDAZOLAM HCL 1 MG/ML 2ML VIAL ONE; -NALOXONE HCL 0.4 MG/1 ML VIAL/CARP IV PRN; -ONDANSETRON INJ 2 MG/ML 2 ML VIAL IV PRN; -ONDANSETRON INJ 2 MG/ML 2 ML VIAL ONE; -OXYCODONE/ACETAMINOPHEN 5-325 TAB PO PRN; -PROMETHAZINE HCL INJ 12.5 MG in SODIUM CHLORIDE 0.9% 50ML 50 ML IV PRN; -PROPOFOL IV EMULSION 10 MG/ML 20 ML VIAL IV ONE
--- NOTE | 2016-05-05 13:21 | DIAGNOSTIC IMAGING REPORT ---
CHEST 2 VIEWS ROUTINE CLINICAL HISTORY: COUGH [id number] COMPARISON STUDY: 04/07/2016 FINDINGS: The bones soft tissues and hemidiaphragms are normal. The cardiomediastinal silhouette is normal. The lungs are clear. The pulmonary vasculature is normal. IMPRESSION: Negative chest. Electronically signed by: Jamil Thomas M.D. 05/05/2016 1:19 PM Dictated Date/Time: 05/05/2016 1:19 PM
== END | disposition home or self-care (01) ==
LOC: C.RAD1850 12:53
PROVIDERS: ATTEND Family Medicine
DX: R05 Cough (principal)

== ENCOUNTER → 2016-05-06 | Outpatient (CLI) | payer OTHER, MEDICARE ==
--- NOTE | 2016-05-06 15:35 | DIAGNOSTIC IMAGING REPORT ---
KUB CLINICAL HISTORY: R05 [id number] nephrocalcinosis COMPARISON STUDY: 04/21/2016 FINDINGS: Left ureteral stent unchanged in position. Multiple left and to lesser extent right renal nephrocalcinosis. Generally stable. A calcification within the left renal pelvis appears to have passed in a retrograde fashion to lower pole left kidney. The grouping of calcifications adjacent to the proximal aspect of the stent now potentially overlies the mid sacrum. Bowel pattern is nonobstructive. IMPRESSION: Improved study. 2. The left ureteral stent remains in good position. 3. Calcification is now present lower aspect left kidney essentially unchanged 4. Calcifications previously described within the proximal ureter now have passed distally to the level of the mid sacrum or in one case to the inferior aspect of the left kidney. Electronically signed by: Jamil Thomas M.D. 05/06/2016 3:34 PM Dictated Date/Time: 05/06/2016 3:32 PM
== END | disposition home or self-care (01) ==
LOC: C.RAD 14:45
PROVIDERS: ATTEND Urology
DX: N20.0 Calculus of kidney (principal); N20.1 Calculus of ureter

== ENCOUNTER → 2016-05-10 | Outpatient (CLI) | payer OTHER, MEDICARE | END | disposition home or self-care (01) | LOC: C.LABSPEC 17:13 | PROVIDERS: ATTEND Urology | DX: N20.0 Calculus of kidney (principal); N39.0 Urinary tract infection, site not specified ==

== ENCOUNTER → 2016-05-11 | Outpatient (CLI) | payer OTHER, MEDICARE ==
[2016-05-11 16:43] LABS: URINE APPEARANCE TURBID (CLEAR); URINE BILIRUBIN NEG (NEG); URINE COLOR YELLOW; URINE EPITHELIAL CELL AUTO 0-5 /lpf (0-5); URINE NITRITE POS (NEG); URINE SPECIFIC GRAVITY 1.005 (1.000-1.030); UROBILINOGEN NEG (NEG)
[2016-05-11 16:46] LABS: MANUAL MICROSCOPIC REQUIRED? NO; REVIEW REQ? NO
[2016-05-11 17:10] LABS: BLOOD UREA NITROGEN 34 mg/dl (7-18); BUN/CREATININE RATIO 13.7 (10-20); CALCIUM 9.2 mg/dl (8.5-10.1); CARBON DIOXIDE 22 mmol/L (21-32); CHLORIDE 107 mmol/L (98-107); GLUCOSE 65 mg/dl (70-99); POTASSIUM 4.4 mmol/L (3.5-5.1); SODIUM 140 mmol/L (136-145)
== END | disposition home or self-care (01) ==
LOC: C.RAD 15:01
PROVIDERS: ATTEND Urology
DX: N20.0 Calculus of kidney (principal)

== ENCOUNTER → 2016-05-23 | Outpatient (CLI) | payer OTHER, MEDICARE | END | disposition home or self-care (01) | LOC: C.LABBC 09:39 | PROVIDERS: ATTEND Urology | DX: N20.0 Calculus of kidney (principal); N39.0 Urinary tract infection, site not specified ==

== ENCOUNTER → 2016-05-27 | Day surgery (SDC) | payer OTHER, MEDICARE ==
[2016-05-10 12:38] VITALS: Ht 182.9 cm; Wt 84.1 kg
[2016-05-12 14:35] LABS: BASO % 0.3 %; BASO ABS # 0.02 K/uL (0-0.2); COMPLETE YES; HEMATOCRIT 32.9 % (42-52); IG% 0.3 %; LYMPH ABS # 1.19 K/uL (1.2-3.4); MEAN CELL VOLUME 87.7 fL (80-100); MEAN CORPUSCULAR HEMOGLOBIN 29.6 pg (25-34); MEAN CORPUSCULAR HGB CONC 33.7 g/dl (32-36); MEAN PLATELET VOLUME 10.6 fL (7.4-10.4); MONO % 10.7 %; NEUT % 69.7 %; PLATELET COUNT 226 K/uL (130-400); RED BLOOD COUNT 3.75 M/uL (4.7-6.1); WHITE BLOOD COUNT 7.01 K/uL (4.8-10.8)
--- NOTE | 2016-05-12 14:39 | DIAGNOSTIC IMAGING REPORT ---
KUB CLINICAL HISTORY: N20.0 Nephrolithiasis COMPARISON STUDY: 05/06/2016 FINDINGS: The left-sided nephroureteral stent has been removed. There are multiple left renal calculi. The largest cluster involves the lower pole the left kidney measuring 16 mm in aggregate. There are multiple pelvic basin calcifications likely resulting phleboliths. There is no pathologic bowel dilatation. IMPRESSION: 1. Left-sided nephrolithiasis 2. Interval removal of the left-sided nephroureteral stent. Electronically signed by: Houston Figueroa M.D. 05/12/2016 2:37 PM Dictated Date/Time: 05/12/2016 2:36 PM
[~2016-05-27] VITALS: Ht 182.9 cm; Wt 84.1 kg
[~2016-05-27] MED LIST changes: +ATROPINE SULFATE 0.1 MG/ML 5ML SYR IV PRN; +CIPROFLOXACIN 400MG / D5W IV SCH; +DEXAMETHASONE SOD INJ 4 MG/ML VIAL IV PRN; +DEXAMETHASONE SOD INJ 4 MG/ML VIAL ONE; +EpHEDrine SULFATE INJ 50 MG/ML AMP IV PRN; +FENTANYL CITRATE INJ 50 MCG/1 ML 2 ML VIAL IV PRN; +FENTANYL CITRATE INJ 50 MCG/1 ML 2 ML VIAL ONE; +KETOROLAC TROMETHAMINE 30 MG/ML VIAL IV. PRN; +LABETALOL HCL IV 5 MG/ML 20ML IV PRN; +LACTATED RINGER'S 1000ML 1,000 ML IV SCH; +LIDOCAINE HCL 2% 2 ML VIAL (20MG/ML) ONE; +METOCLOPRAMIDE HCL INJ 5 MG/ML 2 ML VIAL IV PRN; +MIDAZOLAM HCL 1 MG/ML 2ML VIAL ONE; +MoRPHine SULFATE 10 MG/ML CARP/VIAL IV PRN; +ONDANSETRON INJ 2 MG/ML 2 ML VIAL IV PRN; +ONDANSETRON INJ 2 MG/ML 2 ML VIAL ONE; +OXYCODONE/ACETAMINOPHEN 5-325 TAB PO PRN; +PHENYLEPHRINE 100MCG/ML 5ML SYR IV PRN; +PROPOFOL IV EMULSION 10 MG/ML 20 ML VIAL IV ONE; +SODIUM CHLORIDE 0.9% 1000ML 1,000 ML IV SCH
--- NOTE | 2016-05-27 12:37 | Discharge Instructions-[facility]urgCtr ---
Discharge Instructions Date of Service May 27, 2016. Visit Reason for Visit: Stones Discharge Discharge Diagnosis / Problem: treat stones Discharge Goals Goal(s): Decrease discomfort, Improve function, Increase independence, Improve disease control Medications Stopped Medications Name(s): Was told not to take any blood thinners - denies being on any ASA. Activity Recommendations Activity Limitations: resume your previous activity Lifting Limitations: none Exercise/Sports Limitations: none May Resume Sexual Activity: when tolerated Shower/Bathe: tomorrow Driving or Machine Use: no limitations Anesthesia . Post Anesthesia Instructions: If you have had General Anesthesia or IV Sedation: * Do not drive today. * Resume driving when surgeon permits. * Do not make important decisions or sign legal documents today. * Call surgeon for: 1. Temperature elevations greater than 101 degrees F. 2. Uncontrollable pain. 3. Excessive bleeding. 4. Persistent nausea and vomiting. 5. Medication intolerance (nausea, vomiting or rash). * For nausea and vomiting use only clear liquids such as: tea, soda, bouillon until nausea subsides, then gradually increase diet as tolerated. * If you have any concerns or questions, call your surgeon's office. If physician is unavailable and it is an emergency, call 911 or go to the nearest emergency room. . Diet Recommendations Home Diet: no limitations Procedures Procedures Performed: ESWL Pending Studies Studies pending at discharge: no Medical Emergencies . Who to Call and When: Medical Emergencies: If at any time you feel your situation is an emergency, please call 911 immediately. . Non-Emergent Contact Non-Emergency issues call your: Urologist Call Non-Emergent contact if: you have a fever, temperature is above 101.5, your pain is not controlled, your pain is worsening . . "Provider Documentation" section prepared by Calos Judd.
--- NOTE | 2016-05-27 13:06 | [facility] Post Operative Brief Note ---
Immediate Operative Summary Operative Date May 27, 2016. Pre-Operative Diagnosis Left renal stone Post-Operative Diagnosis same Procedure(s) Performed Left Extracorporeal Shock Wave Lithotripsy, Repeat--Renal Surgeon Dr Graves Senior Web Applications Developer Surgeon(s) 0 Estimated Blood Loss 0 Findings large left renal stones Specimens 0 Drains none Anesthesia gen Complication(s) None Disposition Recovery Room / PACU (stable)
[2016-05-27 14:06] VITALS: TEMP 37.2
--- NOTE | 2016-05-27 14:14 | Anesthesia Progress Nt - [facility] ---
Anesthesia Post Op Note Date & Time May 27, 2016 at 14:14 Vital Signs Pain Intensity: 0 Vital Signs Past 12 Hours Date Time Temp Pulse Resp B/P Pulse Ox O2 Delivery O2 Flow Rate FiO2 05/27/16 14:06 37.2 75 12 141/67 96 Room Air 05/27/16 14:06 141/67 05/27/16 14:04 76 14 05/27/16 14:04 75 14 98 05/27/16 14:03 78 13 05/27/16 14:03 78 13 100 05/27/16 14:01 134/66 05/27/16 13:58 76 10 100 05/27/16 13:58 76 10 05/27/16 13:56 143/68 05/27/16 13:53 76 11 100 05/27/16 13:53 77 11 05/27/16 13:51 136/67 05/27/16 13:48 80 13 05/27/16 13:48 81 13 96 05/27/16 13:47 82 18 98 05/27/16 13:47 83 18 05/27/16 13:46 137/68 05/27/16 13:42 80 10 05/27/16 13:42 80 10 100 05/27/16 13:41 141/66 05/27/16 13:37 82 14 05/27/16 13:37 84 14 99 05/27/16 13:36 139/66 05/27/16 13:32 83 15 05/27/16 13:32 84 15 99 05/27/16 13:31 134/66 05/27/16 13:27 85 21 98 05/27/16 13:27 85 21 05/27/16 13:26 123/62 05/27/16 13:25 80 13 05/27/16 13:25 80 13 98 05/27/16 13:21 122/61 05/27/16 13:20 81 12 98 05/27/16 13:20 82 12 05/27/16 13:16 115/64 05/27/16 13:15 80 13 05/27/16 13:15 80 13 97 05/27/16 13:11 128/56 05/27/16 13:10 78 05/27/16 13:10 78 93 05/27/16 13:10 36.6 78 16 128/56 98 Mask 6 05/27/16 11:30 36.6 74 16 116/72 99 Room Air Notes Mental Status: alert / awake / arousable, participated in evaluation Pt Amnestic to Procedure: Yes Nausea / Vomiting: adequately controlled Pain: adequately controlled Airway Patency, RR, SpO2: stable & adequate BP & HR: stable & adequate Hydration State: stable & adequate Anesthetic Complications: no major complications apparent
[2016-05-27 14:17] VITALS: BP 156/67; PULSE 82; O2SAT 95
--- NOTE | 2016-05-29 11:38 | OPERATIVE REPORT ---
DATE OF OPERATION: 05/27/2016 PREOPERATIVE DIAGNOSIS: Left renal calculi. POSTOPERATIVE DIAGNOSIS: Left renal calculi. PROCEDURE PERFORMED: Left extracorporeal shockwave lithotripsy. ANESTHESIA: General. ESTIMATED BLOOD LOSS: Zero. URINE OUTPUT: Not recorded. SPECIMENS: There were no specimens. DRAINS: None. DESCRIPTION OF THE PROCEDURE: Christian Fields was identified in the preoperative holding area. Appropriate informed consents were reviewed and completed and patient was transported to the operating suite. Upon arrival, he received appropriate preoperative antibiotics in the form of ciprofloxacin and general anesthesia. He was placed in supine position and the stone was localized under fluoroscopy. Subsequently targeted the larger of the 2 stones and commenced lithotripsy. A total of 2500 shocks were delivered, appeared to be good fragmentation of the larger stone. At the conclusion of the case, patient was extubated and taken to the PACU in stable condition. Further details can be found on the [facility] Information Sheet. I attest to the content of the Intraoperative Record and any orders documented therein. Any exceptio ns are noted below.
== END | disposition home or self-care (01) ==
LOC: X.SURG 10:37
PROVIDERS: ATTEND Urology
DX: N20.0 Calculus of kidney (principal); N39.0 Urinary tract infection, site not specified; E11.9 Type 2 diabetes mellitus without complications; E78.5 Hyperlipidemia, unspecified; M10.9 Gout, unspecified; Z82.49 Family history of ischemic heart disease and other diseases of the circulatory system; Z83.3 Family history of diabetes mellitus; Z87.891 Personal history of nicotine dependence; Z79.82 Long term (current) use of aspirin; Z79.899 Other long term (current) drug therapy

== ENCOUNTER → 2016-06-06 | Outpatient (CLI) | payer OTHER, MEDICARE ==
[~2016-06-06] MED LIST changes: -ATROPINE SULFATE 0.1 MG/ML 5ML SYR IV PRN; -CIPROFLOXACIN 400MG / D5W IV SCH; -DEXAMETHASONE SOD INJ 4 MG/ML VIAL IV PRN; -DEXAMETHASONE SOD INJ 4 MG/ML VIAL ONE; -EpHEDrine SULFATE INJ 50 MG/ML AMP IV PRN; -FENTANYL CITRATE INJ 50 MCG/1 ML 2 ML VIAL IV PRN; -FENTANYL CITRATE INJ 50 MCG/1 ML 2 ML VIAL ONE; -KETOROLAC TROMETHAMINE 30 MG/ML VIAL IV. PRN; -LABETALOL HCL IV 5 MG/ML 20ML IV PRN; -LACTATED RINGER'S 1000ML 1,000 ML IV SCH; -LIDOCAINE HCL 2% 2 ML VIAL (20MG/ML) ONE; -METOCLOPRAMIDE HCL INJ 5 MG/ML 2 ML VIAL IV PRN; -MIDAZOLAM HCL 1 MG/ML 2ML VIAL ONE; -MoRPHine SULFATE 10 MG/ML CARP/VIAL IV PRN; -ONDANSETRON INJ 2 MG/ML 2 ML VIAL IV PRN; -ONDANSETRON INJ 2 MG/ML 2 ML VIAL ONE; -OXYCODONE/ACETAMINOPHEN 5-325 TAB PO PRN; -PHENYLEPHRINE 100MCG/ML 5ML SYR IV PRN; -PROPOFOL IV EMULSION 10 MG/ML 20 ML VIAL IV ONE; -SODIUM CHLORIDE 0.9% 1000ML 1,000 ML IV SCH
--- NOTE | 2016-06-06 14:37 | DIAGNOSTIC IMAGING REPORT ---
KUB CLINICAL HISTORY: Nephrolithiasis COMPARISON STUDY: May 12, 2016 FINDINGS: Multiple calcifications project over the left renal shadow. These appear slightly diminished in overall size and number when compared the prior study. The largest cluster projects over the lower pole the left kidney measuring 10 mm. There are no definite ureteral calculi, however there is a 4 mm calcification projected just medial to the inferior aspect the left SI joint.. There are multiple pelvic basin calcifications, likely representing phleboliths. IMPRESSION: 1. Left-sided nephrolithiasis, slightly diminished stone burden as compared the preceding study 2. 4 mm calcification projected medial to the inferior aspect of the left SI joint. This could represent either a phlebolith or ureteral calculus. Electronically signed by: Houston Figueroa M.D. 06/06/2016 2:36 PM Dictated Date/Time: 06/06/2016 2:32 PM
== END | disposition home or self-care (01) ==
LOC: C.RAD 14:13
PROVIDERS: ATTEND Urology
DX: N20.0 Calculus of kidney (principal)

== ENCOUNTER → 2016-06-08 | Outpatient (CLI) | payer OTHER, MEDICARE | END | disposition home or self-care (01) | LOC: C.LABSPEC 17:06 | PROVIDERS: ATTEND Urology | DX: N20.0 Calculus of kidney (principal); N39.0 Urinary tract infection, site not specified; R31.9 Hematuria, unspecified ==

== ENCOUNTER → 2016-07-07 | Outpatient (CLI) | payer OTHER, MEDICARE ==
[~2016-07-07] MED LIST changes: +ASPEC81 PO; +GLC5 PO; +LPT40 PO; +NRV5 PO; +NSP500 PO; +PRS5 PO; +RMRS/45 PO; +THM100 PO
== END | disposition home or self-care (01) ==
LOC: C.RDSM 14:33
PROVIDERS: ATTEND Family Medicine Sports Medicine
DX: M25.562 Pain in left knee (principal)

== ENCOUNTER → 2016-08-04 | Outpatient (CLI) | payer OTHER, MEDICARE ==
--- NOTE | 2016-08-04 15:26 | DIAGNOSTIC IMAGING REPORT ---
ABDOMEN AND PELVIS CT WITHOUT CONTRAST CT DOSE: 498.68 mGy.cm HISTORY: N20.0 Nephrolithiasis TECHNIQUE: Multiaxial CT images of the abdomen and pelvis were performed without contrast. COMPARISON STUDY: Abdomen and pelvis CT 03/14/2016. FINDINGS: Punctate calcified granuloma within the left lung base. No suspicious lytic or blastic osseous lesions. Poststernotomy changes. Tiny fat-containing umbilical hernia. The gallbladder is contracted. The unenhanced liver, spleen, adrenal glands, and pancreas are unremarkable. No retroperitoneal lymphadenopathy. Extensive calcified plaque within the abdominal aorta. The aorta is normal in caliber. The prostate gland is mildly enlarged. Small fat-containing left inguinal hernia. Mild bilateral perinephric edema has improved. A 5 cm exophytic cyst within the upper pole of the right kidney. Bilateral nephrolithiasis, left greater than right. Dominant stone within the lower pole of the left kidney measures 7 mm. The largest stone within the left renal pelvis seen on the prior study is no longer identified. Dominant right renal stone measures 3 mm. The right renal calculi have also decreased in number. No hydronephrosis. No ureteral calculi. There is mild bladder wall thickening. There is also mild fat stranding surrounding the bladder. Punctate stone along the right side of the bladder on image 391. Suboptimal evaluation for bowel pathology due to the lack of intravenous and oral contrast. However, there is no definite bowel wall thickening or obstruction. IMPRESSION: 1. Bilateral nephrolithiasis. No ureteral stones or hydronephrosis. 2. There is a punctate stone within the right side of the bladder. 3. Mild bladder wall thickening with adjacent fat stranding. This may represent a cystitis. Recommend correlation with urinalysis. 4. Additional findings as described above. Electronically signed by: Chetan Bearden M.D. 08/04/2016 3:25 PM Dictated Date/Time: 08/04/2016 3:15 PM
== END | disposition home or self-care (01) ==
LOC: C.CTS 14:51
PROVIDERS: ATTEND Urology
DX: N20.0 Calculus of kidney (principal)

== ENCOUNTER → 2016-12-26 | Outpatient (CLI) | payer OTHER, MEDICARE ==
[~2016-12-26] MED LIST changes: -ASPEC81 PO; -GLC5 PO; -LPT40 PO; -NRV5 PO; -NSP500 PO; -PRS5 PO; -RMRS/45 PO; -THM100 PO
== END | disposition home or self-care (01) ==
LOC: C.LABSPEC 10:49
PROVIDERS: ATTEND Urology
DX: N39.0 Urinary tract infection, site not specified (principal); N39.41 Urge incontinence

== ENCOUNTER 2017-01-19 11:41 | Inpatient (IN) | payer OTHER, MEDICARE ==
[~2017-01-19] VITALS: Ht 182.9 cm; Wt 82.8 kg
--- NOTE | 2017-01-19 12:10 | EMERGENCY ROOM VISIT NOTE ---
History Report prepared by Rajiv: Leslie Julien Under the Supervision of: Dr. Evan Knowles M.D. First contact with patient: 11:54 Chief Complaint: CARDIAC ASSESSMENT Stated Complaint: TACHYCARDIA History of Present Illness The patient is a 87 year old male who presents to the Emergency Room with complaints of an episode of rapid heart beats occurring this morning. The patient states he drank coffee when he started to feel "like I just ran a mile" . He states this feeling lasted about 15 minutes. He was short of breath, lightheaded, and had a chest ache which radiated to his neck during the episodes. The patient notes an episode of feeling dizzy yesterday but states this happens to him when he doesn't drink enough fluids. He denies any clamminess, abdominal pain, urinary symptoms, vomiting, nausea, or new leg swelling. Presently, the patient feels fatigued by denies any other symptoms. 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 They have in- home caregivers who stay with his until 10 pm. The patient has a history of breaking two of his vertebrae in his neck and a triple bypass. He is not on any blood thinners. Source of History: patient Onset: this morning Position: other (global) Quality: other (rapid heart beats) Timing: other (episode) Associated Symptoms: + neck pain, + chest pain, + SOB, + fatigue, No diaphoresis, No nausea, No vomiting, No abdominal pain, No urinary symptoms Review of Systems See HPI for pertinent positives & negatives. A total of 10 systems reviewed and were otherwise negative. Past Medical & Surgical Medical Problems: (1) Coronary artery disease (2) Diabetes (3) Hydronephrosis (4) Hypertension (5) Hypertensive urgency (6) SIRS (systemic inflammatory response syndrome) Surgical Problems: (1) S/P CABG (coronary artery bypass graft) Old medical records were reviewed. Nurse's notes were reviewed and I agree with. Family History Myocardial infarction FATHER MOTHER No Family History of: Kidney stones Social History Smoking Status: Never Smoker Drug Use: none Marital Status: Housing Status: lives with family Occupation Status: retired Current/Historical Medications Scheduled Finasteride (Finasteride), 5 MG PO QAM Fluoxetine (Prozac), 40 MG PO DAILY Glipizide (Glipizide), 2 TAB PO QAM Losartan Potassium (Cozaar), 25 MG PO QPM Metoprolol Tartrate (Lopressor) (Lopressor), 12.5 MG PO Q2D Metoprolol Tartrate (Lopressor) (Lopressor), 25 MG PO Q2D Mirtazapine (Mirtazapine), 45 MG PO HS Pantoprazole (Protonix), 40 MG PO QAM Pravastatin Sod (Pravastatin Sodium), 40 MG PO DAILY Tamsulosin Hcl (Flomax), 0.4 MG PO BID Allergies Coded Allergies: Cefuroxime (Verified Allergy, Intermediate, Hives, 05/27/16) Penicillins (Verified Allergy, Mild, MARGINAL, 05/27/16) MARGINAL Physical Exam Vital Signs Date Time Temp Pulse Resp B/P (MAP) Pulse Ox O2 Delivery O2 Flow Rate FiO2 01/19/17 15:15 78 20 205/145 97 Room Air 01/19/17 14:00 74 20 175/97 98 Room Air 01/19/17 12:08 83 01/19/17 11:51 97 Room Air 01/19/17 11:51 97 Room Air 01/19/17 11:46 36.6 84 18 176/80 96 Room Air Physical Exam General: Non-ill appearing older male in no acute distress. HEENT: Normal cephalic atraumatic. Pupils are equal round and reactive to light. Extraocular movements are intact. Oropharynx is pink with moist mucous membranes. No swelling of the mouth lips or tongue. Neck: Supple with a midline trachea. No meningeal signs or stiffness, no JVD or bruits. No Stridor. Chest: Clear to auscultation bilaterally. No wheezes or rhonchi. No increased work of breathing. Heart: regular rate and rhythm. Abdomen: Soft nontender, nondistended without rebound guarding or rigidity. Extremities: No cyanosis clubbing or edema. No calf tenderness or assymetry Spine/Back. Non tender to palpation. No CVA tenderness Skin: Good turgor without rashes. Neurologic exam: Cranial nerves two through 12 are intact. Motor and sensation are intact and symmetrical throughout. Medical Decision & Procedures ER Provider Diagnostic Interpretation: Radiology results as stated below per my review and radiologist interpretation: CHEST ONE VIEW PORTABLE FINDINGS: Cardiomediastinal and hilar silhouettes are within normal limits. Prior median sternotomy. There is atherosclerosis of the aorta. No pneumothorax, pleural effusion, focal airspace consolidation or overt pulmonary edema. Mild right hemidiaphragmatic elevation. Bones of the chest are grossly intact. IMPRESSION: No acute cardiopulmonary process. The above report was generated using voice recognition software. It may contain grammatical, syntax or spelling errors. Electronically signed by: Carlos Rivera M.D. Laboratory Results 01/19/17 11:45 Test 01/19/17 11:45 01/19/17 12:15 Prothrombin Time 10.5 SECONDS (9.0-12.0) Prothromb Time International Ratio 1.0 (0.9-1.1) Activated Partial Thromboplast Time 27.9 SECONDS (21.0-31.0) Partial Thromboplastin Ratio 1.1 Anion Gap 10.0 mmol/L (3-11) Est Creatinine Clear Calc Drug Dose 29.9 ml/min Estimated GFR () 34.7 Estimated GFR (Non- 29.9 BUN/Creatinine Ratio 14.7 (10-20) Calcium Level 9.0 mg/dl (8.5-10.1) Total Bilirubin 0.4 mg/dl (0.2-1) Direct Bilirubin < 0.1 mg/dl (0-0.2) Aspartate Amino Transf (AST/SGOT) 16 U/L (15-37) Alanine Aminotransferase (ALT/SGPT) 17 U/L (12-78) Alkaline Phosphatase 86 U/L (45-117) Total Creatine Kinase 89 U/L (39-308) Creatine Kinase MB 2.2 ng/ml (0.5-3.6) Creatine Kinase MB Ratio 2.5 (0-3.0) Total Protein 7.5 gm/dl (6.4-8.2) Albumin 3.6 gm/dl (3.4-5.0) Lipase 89 U/L (73-393) Thyroid Stimulating Hormone (TSH) 2.080 uIu/ml (0.300-4.500) Bedside Troponin I < 0.030 ng/ml (0-0.045) Laboratory studies as stated above per my review. Medications Administered Medications (Trade) Dose Ordered Sig/Channing Route Start Time Stop Time Status Last Admin Dose Admin Aspirin (Aspirin Chew) 324 mg NOW STAT PO 01/19/17 13:29 01/19/17 13:30 DC 01/19/17 14:19 324 MG ECG Indication: chest pain Rate (beats per minute): 83 Rhythm: normal sinus Findings: other (ST and T-wave abnormalities inferiorly and laterally) Comparison ECG Date: 02/11/17 Change: Abnormalities are more pronounced. ED Course 1156: Past medical records reviewed. The patient was evaluated in room C3, and a complete history and physical examination were performed. 1318: I reassessed the patient and he is resting comfortably. 1326: Discussed the patient's case with Dr. George. The patient will be evaluated for further management. 1328: I reassessed them patient, I will order Aspirin because he forgot to take his this morning. 1329: Aspirin 325 mg PO. Medical Decision Differential diagnoses: acute coronary syndrome, arrhythmia, infection, electrolyte or metabolic abnormality. This patient comes in as described above. He was placed in room C3. He had an episode where he had felt like he had a rapid heart rate and chest pain use of history cardiac disease and had a CABG in the distant past. He feels fine at present. He lives at home with his and she does have dementia. There is help at home but not 03/10. IV access established EKG was obtained and multiple blood testing was obtained. He has no arrhythmia seen here he does have some non-specific lateral inferior ST and T-wave abnormality which may be slightly more pronounced than before his cardiac biomarkers are not elevated. Chest x- ray does not suggest congestive heart failure, pneumonia, or pneumothorax. He has no acute electrolyte or metabolic abnormality. Given his cardiac history, I do think he needs to be observed for further treatment and evaluation. I have consulted the [facility] hospitalist who saw him in the ER and will observe him for these measures. Medication Reconcilliation Current Medication List: was personally reviewed by me Blood Pressure Screening Patient's blood pressure: Elevated blood pressure Blood pressure disposition: Referred to PCP Consults Time Called: 1320 Consulting Physician: Dr. George Returned Call: 1326 Discussed the patient's case Dr. George. The patient will be evaluated for further management. Impression Primary Impression: Chest pain Additional Impression: Palpitations Scribe Attestation The scribe's documentation has been prepared under my direction and personally reviewed by me in its entirety. I confirm that the note above accurately reflects all work, treatment, procedures, and medical decision making performed by me. Departure Information Dispostion Being Evaluated By Hospitalist Referrals Vinh Montano D.O. (PCP) Patient Instructions My [facility] Problem Qualifiers
[2017-01-19 12:34] LABS: PARTIAL THROMBOPLASTIN RATIO 1.1; PROTHROMBIN TIME (PATIENT) 10.5 SECONDS (9.0-12.0)
--- NOTE | 2017-01-19 12:39 | DIAGNOSTIC IMAGING REPORT ---
CHEST ONE VIEW PORTABLE HISTORY: 87 years-old Male CHEST PAIN acute atypical chest pain COMPARISON: Chest radiographs 05/05/2016 TECHNIQUE: Portable upright AP view of the chest FINDINGS: Cardiomediastinal and hilar silhouettes are within normal limits. Prior median sternotomy. There is atherosclerosis of the aorta. No pneumothorax, pleural effusion, focal airspace consolidation or overt pulmonary edema. Mild right hemidiaphragmatic elevation. Bones of the chest are grossly intact. IMPRESSION: No acute cardiopulmonary process. The above report was generated using voice recognition software. It may contain grammatical, syntax or spelling errors. Electronically signed by: Carlos Rivera M.D. 01/19/2017 12:37 PM Dictated Date/Time: 01/19/2017 12:36 PM
[2017-01-19 12:46] LABS: ALT/SGPT 17 U/L (12-78); AST/SGOT 16 U/L (15-37); BLOOD UREA NITROGEN 29 mg/dl (7-18); BUN/CREATININE RATIO 14.7 (10-20); CARBON DIOXIDE 21 mmol/L (21-32); CHLORIDE 108 mmol/L (98-107); CREATININE 1.98 mg/dl (0.60-1.40); GLUCOSE 189 mg/dl (70-99); POTASSIUM 4.2 mmol/L (3.5-5.1); SODIUM 139 mmol/L (136-145)
[2017-01-19 12:57] LABS: ALKALINE PHOSPHATASE 86 U/L (45-117); CKMB/CK RATIO 2.5 (0-3.0)
[2017-01-19] MEDS ORDERED: ASPIRIN 81 MG CHEW PO STA (13:29)
[2017-01-19] MEDS ORDERED: GLC5 PO (13:33)
[2017-01-19] MEDS ORDERED: RMRS/45 PO (13:33)
[2017-01-19] MEDS ORDERED: PRS5 PO (13:33)
[2017-01-19] MEDS ORDERED: LOSARTAN POTASSIUM 25 MG TAB PO ONE (14:50)
[2017-01-19] MEDS ORDERED: METOPROLOL TARTRATE 25 MG TAB PO ONE (14:50)
[2017-01-19] MEDS ORDERED: TAMSULOSIN HCL 0.4 MG CAP PO ONE (14:50)
--- NOTE | 2017-01-19 15:17 | History and Physical ---
History & Physical Date & Time of Service: Jan 19, 2017 at 15:17 Chief Complaint: Tachycardia Primary Care Physician: Vinh Montano D.O. History of Present Illness Christian is a 87 yo male who comes in the hospital for an episode of palpitation. He states that this morning his HR went up after drinking a cup of coffee. This lasted about 15 minutes. This was accompanied by SOB, lightheadedness. Patient denies nausea, vomiting, diaphoresis, or having syncope. Patient decided to come to the hospital and was evaluated in the ER provider. Prior to being seen, first trop was negative, EKG did show some ST changes however, he did have these prior. I told ER provider to give ASA 325mg, which was ordered. When I discussed with patient, he denies any pain or discomfort and is resting comfortably. His BP was elevated, SBP above 180, and he states that he did not take his morning meds. Past Medical/Surgical History Medical Problems: (1) Coronary artery disease Status: Chronic (2) Diabetes Status: Chronic (3) Hypertension Status: Chronic Surgical Problems: (1) S/P CABG (coronary artery bypass graft) Status: Resolved Family History Myocardial infarction FATHER MOTHER No Family History of: Kidney stones Social History Smoking Status: Never Smoker Drug Use: none Marital Status: Housing status: lives with family Occupational Status: retired Immunizations History of Influenza Vaccine: Yes History of Tetanus Vaccine?: No History of Pneumococcal: Yes History of Hepatitis B Vaccine: No Multi-Drug Resistant Organisms History of MDRO: No Allergies Coded Allergies: Cefuroxime (Verified Allergy, Intermediate, Hives, 05/27/16) Penicillins (Verified Allergy, Mild, MARGINAL, 05/27/16) MARGINAL Home Medications Scheduled Amlodipine Besylate (Amlodipine Besylate), 10 MG PO QAM Aspirin (Aspirin EC Low Dose), 81 MG PO QAM Atorvastatin (Atorvastatin Calcium), 80 MG PO QAM Finasteride (Finasteride), 5 MG PO QAM Fluoxetine (Prozac), 40 MG PO DAILY Glipizide (Glipizide), 2 TAB PO QAM Losartan Potassium (Cozaar), 25 MG PO QPM Metoprolol Tartrate (Lopressor) (Lopressor), 12.5 MG PO Q2D Metoprolol Tartrate (Lopressor) (Lopressor), 25 MG PO Q2D Mirtazapine (Mirtazapine), 45 MG PO HS Niacin (Niacin ER), 500 MG PO QAM Pantoprazole (Protonix), 40 MG PO QAM Tamsulosin Hcl (Flomax), 0.4 MG PO BID Thiamine HCl (Vitamin B-1), 100 MG PO QAM Review of Systems Constitutional: No fever, No chills Respiratory: No cough, No sputum, No wheezing Cardiovascular: + chest pain, No orthopnea, No PND Abdomen: No pain, No nausea, No vomiting Neurologic: No memory loss, No paralysis, No weakness Integumentary: No rash, No itch Physical Exam Vital Signs Date Time Temp Pulse Resp B/P (MAP) Pulse Ox O2 Delivery O2 Flow Rate FiO2 01/19/17 12:08 83 01/19/17 11:51 97 Room Air 01/19/17 11:51 97 Room Air 01/19/17 11:46 36.6 84 18 176/80 96 Room Air General Appearance: WD/WN, no apparent distress ENT: normal ENT inspection, hearing grossly normal Neck: supple, no adenopathy Respiratory/Chest: chest non-tender, lungs clear, normal breath sounds Cardiovascular: regular rate, rhythm, no edema Abdomen/GI: normal bowel sounds, non tender, soft Skin: normal color Lymphatic: no adenopathy Diagnostics Laboratory Results Results Past 24 Hours Test 01/19/17 11:45 01/19/17 12:15 Range/Units Prothrombin Time 10.5 9.0-12.0 SECONDS Prothromb Time International Ratio 1.0 0.9-1.1 Activated Partial Thromboplast Time 27.9 21.0-31.0 SECONDS Partial Thromboplastin Ratio 1.1 Sodium Level 139 136-145 mmol/L Potassium Level 4.2 3.5-5.1 mmol/L Chloride Level 108 98-107 mmol/L Carbon Dioxide Level 21 21-32 mmol/L Anion Gap 10.0 3-11 mmol/L Blood Urea Nitrogen 29 7-18 mg/dl Creatinine 1.98 0.60-1.40 mg/dl Est Creatinine Clear Calc Drug Dose 29.9 ml/min Estimated GFR () 34.7 Estimated GFR (Non- 29.9 BUN/Creatinine Ratio 14.7 10-20 Random Glucose 189 70-99 mg/dl Calcium Level 9.0 8.5-10.1 mg/dl Total Bilirubin 0.4 0.2-1 mg/dl Direct Bilirubin < 0.1 0-0.2 mg/dl Aspartate Amino Transf (AST/SGOT) 16 15-37 U/L Alanine Aminotransferase (ALT/SGPT) 17 12-78 U/L Alkaline Phosphatase 86 45-117 U/L Total Creatine Kinase 89 39-308 U/L Creatine Kinase MB 2.2 0.5-3.6 ng/ml Creatine Kinase MB Ratio 2.5 0-3.0 Total Protein 7.5 6.4-8.2 gm/dl Albumin 3.6 3.4-5.0 gm/dl Lipase 89 73-393 U/L Thyroid Stimulating Hormone (TSH) 2.080 0.300-4.500 uIu/ml Bedside Troponin I < 0.030 0-0.045 ng/ml Impression Assessment and Plan Tachycardia and palpitations with EKG changes with hypertensive urgency will admit to tele will order cardiac markers. EKG changes to his ST and T wave are slightly more pronounced but were also visible in his prior ekg will place patient back on his oral meds given that he did not take it this am I do not believe this is HTN emergency given that his symptoms preceded his elevated SBP. will consult cardiology. 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 Y/N: Yes Risk Level: Moderate Given or contraindicated: Other Anticoagulation (heparin) Social Service Consult Lives in Personal Care
[2017-01-19] MEDS ORDERED: GLUCOSE 10 TABS/TUBE PO PRN (16:00)
[2017-01-19] MEDS ORDERED: DEXTROSE 50% 50 ML SYR IV PRN (16:00)
[2017-01-19] MEDS ORDERED: INFLUENZA VIRUS QUAD VACCINE 0.5 ML SYR IM. ONE (16:00)
[2017-01-19] MEDS ORDERED: GLUCOSE 40% GEL 15 GM TUBE PO PRN (16:00)
[2017-01-19] MEDS ORDERED: GLUCAGON FOR INJ 1 MG VIAL SQ PRN (16:00)
[2017-01-19 16:31] VITALS: Ht 182.9 cm; Wt 82.8 kg
[2017-01-19] MEDS: INSULIN ASPART 100 UNITS/ML 3 ML PEN SC SCH ×2 (17:50→20:49)
[2017-01-19] MEDS ORDERED: INFLUENZA VACCINE HIGH DOSE 65+ 0.5 ML SYR IM. ONE (18:00)
[2017-01-19] MEDS ORDERED: INFLUENZA ADMINISTRATION CHARGE ONE (18:00)
[2017-01-19 19:35] VITALS: BP 161/69; PULSE 69
[2017-01-19 19:48] VITALS: BP 172/77; PULSE 67; TEMP 36.6; O2SAT 97
[2017-01-19 20:00] VITALS: O2SAT 99
[2017-01-19] MEDS ORDERED: PNEUMOCOCCAL POLYSACCHARIDES 25 MCG/0.5 ML VIAL/SYR IM. ONE (20:00)
[2017-01-19] MEDS ORDERED: PNEUMOCOCCAL ADMINISTRATION CHARGE ONE (20:00)
[2017-01-19] MEDS: MIRTAZAPINE TAB 15 MG TAB PO SCH (20:44)
[2017-01-19] MEDS ORDERED: HEPARIN SOD 5000 UNIT/0.5 ML CARP SQ SCH (22:00)
[2017-01-19 22:15] LABS: BASO % 0.6 %; BASO ABS # 0.03 K/uL (0-0.2); COMPLETE YES; EOS % 7.4 %; HEMATOCRIT 35.4 % (42-52); IG% 0.2 %; LYMPH % 32.9 %; MEAN CELL VOLUME 90.3 fL (80-100); MEAN CORPUSCULAR HEMOGLOBIN 29.3 pg (25-34); MEAN CORPUSCULAR HGB CONC 32.5 g/dl (32-36); MEAN PLATELET VOLUME 10.8 fL (7.4-10.4); MONO % 12.7 %; NEUT % 46.2 %; PLATELET COUNT 137 K/uL (130-400); RED BLOOD COUNT 3.92 M/uL (4.7-6.1); WHITE BLOOD COUNT 4.87 K/uL (4.8-10.8)
[2017-01-19 22:50] VITALS: BP 180/82; PULSE 72; TEMP 36.6; O2SAT 95
[2017-01-19] MEDS ORDERED: AMLODIPINE BESYLATE 5 MG TAB PO STA (23:02)
[2017-01-19] MEDS ORDERED: HEPARIN IV LOW DOSE NO BOLUS SCH (23:06)
[2017-01-20] VITALS: O2SAT 95
[2017-01-20] MEDS: HEPARIN 25000 UNIT/ D5W 500 ML (PHARMACY PREPARED) IV PRN ×4 (00:41→08:43)
[2017-01-20 04:00] VITALS: BP 165/73; PULSE 72; TEMP 36.5; O2SAT 96
[2017-01-20] MEDS ORDERED: PERFLUTREN LIPID MICROSPHERE (DEFINITY) IV ONE (07:07)
[2017-01-20 07:33] LABS: BASO % 0.7 %; BASO ABS # 0.03 K/uL (0-0.2); COMPLETE YES; EOS % 5.6 %; HEMATOCRIT 36.7 % (42-52); IG% 0.2 %; LYMPH % 29.6 %; LYMPH ABS # 1.33 K/uL (1.2-3.4); MEAN CORPUSCULAR HEMOGLOBIN 30.4 pg (25-34); MEAN CORPUSCULAR HGB CONC 33.8 g/dl (32-36); MEAN PLATELET VOLUME 10.8 fL (7.4-10.4); MONO % 8.5 %; NEUT % 55.4 %; PLATELET COUNT 119 K/uL (130-400); RED BLOOD COUNT 4.08 M/uL (4.7-6.1); WHITE BLOOD COUNT 4.49 K/uL (4.8-10.8)
[2017-01-20 07:47] LABS: PARTIAL THROMBOPLASTIN RATIO 1.3
[2017-01-20 07:54] LABS: BUN/CREATININE RATIO 14.7 (10-20); CALCIUM 8.8 mg/dl (8.5-10.1); CREATININE 2.01 mg/dl (0.60-1.40); POTASSIUM 4.4 mmol/L (3.5-5.1)
[2017-01-20] MEDS: INSULIN ASPART 100 UNITS/ML 3 ML PEN SC SCH ×4 (08:00→21:00)
[2017-01-20 08:01] LABS: CHOLESTEROL/HDL RATIO 4.4
[2017-01-20 08:17] VITALS: BP 128/64; PULSE 76; TEMP 36.5; O2SAT 93
[2017-01-20] MEDS ORDERED: HEPARIN IV BOLUS 4,500 UNIT in SYRINGE 0 ML IV ONE (08:30)
[2017-01-20] MEDS: TAMSULOSIN HCL 0.4 MG CAP PO SCH ×2 (08:34→21:46)
[2017-01-20] MEDS: FLUOXETINE HCL 20 MG CAP PO SCH (08:34)
[2017-01-20] MEDS: PANTOprazole SOD 40 MG TAB PO SCH (08:34)
[2017-01-20] MEDS: ASPIRIN 81 MG ECTAB PO SCH (08:34)
[2017-01-20] MEDS: FINASTERIDE 5 MG TAB PO SCH (08:34)
[2017-01-20 08:40] LABS: ESTIMATED AVERAGE GLUCOSE 180 mg/dl; HA1C FLAG Normal (Normal)
[2017-01-20] MEDS ORDERED: METOPROLOL TARTRATE 25 MG TAB PO SCH (09:00)
[2017-01-20] MEDS ORDERED: PRAVASTATIN SOD 40 MG TAB PO SCH (09:00)
--- NOTE | 2017-01-20 09:21 | Clinical Documentation Query ---
CLINICAL DOCUMENTATION QUERY QUERY 1 OF 2 87 yo male admitted for an episode of palpitation. He states that this morning his HR went up after drinking a cup of coffee, and was accompanied by SOB and lightheadedness. In your clinical opinion is this patient being managed for: ( ) Hypertensive emergency in the setting of renal failure and treated with antihypertensives ( ) Not Agree ( ) Other explanation of clinical findings (Please Explain) ( ) Unable to determine (Please Define) ( ) Need to Discuss The medical record reflects the following clinical findings, treatment, and risk factors. Clinical Indicators: BP 205/145, dizziness, chest pain, creatinine 2.01 from 1.6 baseline, GFR 29.4 Treatment: Lopressor, norvasc, coZAAR PO, telemetry, I&O Risk Factors:Age, HTN, medication noncompliance QUERY 2 OF 2 In your clinical opinion is this patient being managed for: ( ) Chronic kidney disease, stage 3-4 ( ) Not Agree ( ) Other explanation of clinical findings (Please Explain) ( ) Unable to determine (Please Define) ( ) Need to Discuss The medical record reflects the following clinical findings, treatment, and risk factors. Clinical Indicators: GFR range 19.0 to 39.0, creatinine 2.01 from 1.60 baseline March 2016 Treatment: IV fluids, telemetry, I&O, daily weights Risk Factors: HTN, age, Please clarify and document your clinical opinion in the progress notes and discharge summary. Terms such as "probable", "suspected", "likely", "questionable", "possible", or "still to be ruled out" are acceptable. IF IN AGREEMENT, YOU MUST DOCUMENT ABOVE DIAGNOSTIC STATEMENT IN DAILY PROGRESS NOTES AND DISCHARGE SUMMARY. This document is not part of the patient's record. Thank You, Hillary Leigh RN [phone]
[2017-01-20 12:48] VITALS: BP 131/63; PULSE 70; TEMP 37; O2SAT 99
--- NOTE | 2017-01-20 13:51 | ECHOCARDIOGRAM REPORT ---
*NOTICE TO RECEIVING CONSTITUTION PARTY AGENCY This information is strictly Confidential and protected under [place] law. [place] law prohibits you from making any further disclosure of this information unless further disclosure is expressly permitted by the written consent of the person to whom it pertains or is authorized by law. A general authorization for the release of medical or other information is not sufficient for this purpose. Hospital accepts no responsibility if the information is made available to any other person, INCLUDING THE PATIENT. Interpretation Summary * Name: JOSTIN MAY Study Date: 01/20/2017 06:40 AM BP: 165/73 mmHg * Patient Location: C.2T\S\S229\S\2 HR: 75 * : 1930 (M/d/yyyy) Gender: Male Height: 72 in * Age: 87 yrs Ethnicity: CA Weight: 186 lb * Ordering Physician: Rudy Reveles * Referring Physician: Self, Referred * Performed By: Tiffanie Guerra RCS * * Reason For Study: ELEVATED TROPONIN * BSA: 2.1 m2 * -- Conclusions -- * The left ventricle is normal in size. * There is moderate concentric left ventricular hypertrophy. * No regional wall motion abnormalities noted. * Left ventricular systolic function is normal. * Ejection Fraction = 55-60%. * Grade I diastolic dysfunction, (abnormal relaxation pattern). * Aortic valve sclerosis mild, without significant aortic valvular stenosis. * There is trace mitral regurgitation. * There is mild to moderate tricuspid regurgitation. Procedure Details * A complete two-dimensional transthoracic echocardiogram was performed (2D, M-mode, Doppler and color flow Doppler). * A contrast injection of Definity was performed to improve assessment of LV function. * Contrast was injected into an intravenous site in the left arm. * One vial of Definity ultrasound contrast was diluted in normal saline to a total volume of 10 ml. A total of '2' ml of solution was administered during imaging. * Lot # [id number] of Definity utilized for procedure. * Expiration date FEB 27. * The attending nurse who injected the contrast agent was ALEJANDRA JUNG RN. Left Ventricle * The left ventricle is normal in size. * There is moderate concentric left ventricular hypertrophy. * Left ventricular systolic function is normal. * Ejection Fraction = 55-60%. * No regional wall motion abnormalities noted. Right Ventricle * The right ventricle is normal in size and function. Atria * The left atrial size is normal. * Right atrial size is normal. * No ASD detected; PFO is not assessed. Mitral Valve * The mitral valve is normal. * There is no mitral valve stenosis. * There is trace mitral regurgitation. Tricuspid Valve * The tricuspid valve anatomy is normal. * There is no tricuspid stenosis. * There is mild to moderate tricuspid regurgitation. Aortic Valve * The aortic valve is trileaflet. * Aortic valve sclerosis mild, without significant aortic valvular stenosis. * No aortic regurgitation is present. Pulmonic Valve * The pulmonic valve is not well visualized. Great Vessels * The aortic root is normal size. Pericardium/Pleural * There is no pericardial effusion. Great Vessels * Normal inferior vena cava diameter and respiratory variation suggests normal central venous pressure. Left Ventricular Diastolic Function * Grade I diastolic dysfunction, (abnormal relaxation pattern). MMode 2D Measurements and Calculations IVSd 1.5 cm IVSs 1.7 cm LVIDd 4.1 cm LVIDs 3.2 cm LVPWd 1.2 cm LVPWs 1.4 cm IVS/LVPW 1.3 FS 20.7 % EDV(Teich) 73.8 ml ESV(Teich) 42.4 ml EF(Teich) 42.6 % EDV(cubed) 68.5 ml ESV(cubed) 34.1 ml EF(cubed) 50.1 % % IVS thick 11.1 % % LVPW thick 17.0 % LV mass(C)d 206.5 grams LV mass(C)dI 99.9 grams/m\S\2 LV mass(C)s 183.8 grams LV mass(C)sI 89.0 grams/m\S\2 SV(Teich) 31.5 ml SI(Teich) 15.2 ml/m\S\2 SV(cubed) 34.3 ml SI(cubed) 16.6 ml/m\S\2 Ao root diam 3.6 cm Ao root area 10.0 cm\S\2 ACS 2.0 cm LA dimension 3.4 cm LA/Ao 0.96 LVOT diam 2.0 cm LVOT area 3.3 cm\S\2 LVAd ap4 33.4 cm\S\2 LVLd ap4 8.7 cm EDV(MOD-sp4) 103.7 ml EDV(sp4-el) 109.1 ml LVAs ap4 25.0 cm\S\2 LVLs ap4 7.9 cm ESV(MOD-sp4) 64.1 ml ESV(sp4-el) 67.0 ml EF(MOD-sp4) 38.2 % EF(sp4-el) 38.6 % LVAd ap2 33.4 cm\S\2 LVLd ap2 8.2 cm EDV(MOD-sp2) 111.9 ml EDV(sp2-el) 116.0 ml LVAs ap2 24.5 cm\S\2 LVLs ap2 7.6 cm ESV(MOD-sp2) 66.7 ml ESV(sp2-el) 67.3 ml EF(MOD-sp2) 40.4 % EF(sp2-el) 42.0 % LVLd %diff -6.22 % EDV(MOD-bp) 111.1 ml LVLs %diff -3.79 % ESV(MOD-bp) 65.9 ml EF(MOD-bp) 40.7 % SV(MOD-sp4) 39.6 ml SI(MOD-sp4) 19.2 ml/m\S\2 SV(MOD-sp2) 45.2 ml SI(MOD-sp2) 21.9 ml/m\S\2 SV(MOD-bp) 45.2 ml SI(MOD-bp) 21.9 ml/m\S\2 SV(sp4-el) 42.1 ml SI(sp4-el) 20.4 ml/m\S\2 SV(sp2-el) 48.7 ml SI(sp2-el) 23.6 ml/m\S\2 Doppler Measurements and Calculations MV E max ginny 73.7 cm/sec MV A max ginny 89.7 cm/sec MV E/A 0.82 MV P1/2t max ginny 97.7 cm/sec MV P1/2t 97.6 msec MVA(P1/2t) 2.3 cm\S\2 MV dec slope 293.1 cm/sec\S\2 MV dec time 0.29 sec MR max ginny 399.1 cm/sec MR max PG 63.7 mmHg PA V2 max 93.7 cm/sec PA max PG 3.5 mmHg TR max ginny 273.5 cm/sec
--- NOTE | 2017-01-20 15:24 | CARDIOLOGY CONSULTATION ---
DATE OF CONSULTATION: 01/20/2017 DATE OF CONSULTATION: 01/20/2017 REFERRING: Dr. Arnold, Dr. Maldonado. INDICATIONS: Chest pain, tachypalpitations, elevated troponin. HISTORY OF PRESENT ILLNESS: The patient is an 87-year-old male whose history is notable for: 1. Atherosclerotic coronary artery disease with prior coronary bypass grafting for left main disease in 2003, receiving a MUÑIZ graft to the LAD, a saphenous vein graft to the ramus intermedius with sequential graft to the posterior medial branch, history of longstanding labile hypertension. 2. Hyperlipidemia. 3. Past remote atrial fibrillation. 4. History of mechanical fall with C1-2 cervical fracture in February 2015. The patient presents this admission noting recent stressors the care of his . The day of admission he drank a cup of coffee and then suddenly developed heart pounding in his chest, neck and throat, felt like his heart was pounding out of his chest, lasting approximately 15-20 minutes associated with shortness of breath and mild lightheadedness. Symptoms resolved but immediately afterwards felt markedly fatigued. He subsequently presented to the Emergency Room where he was initially begun on oral aspirin and IV heparin. Blood pressures were elevated on presentation. He currently notes fatigue but notes no chest pain or discomfort. Notes no fevers, chills or productive cough. Notes no acute neurologic complaints. Does feel more fatigued and washed out over the past several days. He has been taking medications as prescribed. Appetite has been stable. Notes no acute weight loss. Notes no melena, hematochezia, dysuria or hematuria. Notes no headache or visual changes. ALLERGIES: PENICILLIN. MEDICATIONS: Per patient's list include finasteride 5 mg q.a.m., Prozac 40 mg daily, glipizide 2 tablets q.a.m., losartan 25 mg q.p.m., metoprolol tartrate 25 mg alternating with 12.5 mg every other day, Protonix 40 mg p.o. day, Remeron 45 mg at bedtime, pravastatin 40 mg p.o. daily, Flomax 0.4 mg twice per day. PAST SURGICAL HISTORY: Notable for prior appendectomy, coronary bypass grafting, lithotripsy with prior cystoscopy and stent implantation and removal. FAMILY HISTORY: Noncontributory. SOCIAL HISTORY: The patient is a nonsmoker since 1984. Uses occasional alcoholic beverages. 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 PHYSICAL EXAMINATION: VITAL SIGNS: Currently heart rate 70, blood pressure is 131/63. HEAD, EYES, EARS, NOSE, AND THROAT: Normocephalic, atraumatic. Nares without discharge. Throat was clear. NECK: Supple without thyromegaly or lymphadenopathy. There are no carotid bruits. LUNGS: Clear to auscultation. CARDIOVASCULAR: Regular with normal S1, S2. There is no audible murmur, gallop or rub. ABDOMEN: Soft, nontender. There is no palpable hepatosplenomegaly. There is no hepatojugular reflux. EXTREMITIES: Without cyanosis or clubbing. There is no peripheral edema. LABORATORY DATA: EKG reveals sinus rhythm with lateral inferolateral strain pattern very similar to outpatient tracings to 2016, septal infarct with poor R-wave progression V1 and V2. There has been no significant evolution of studies. Laboratory revealed a white cell count of 4.8, hemoglobin 11.5. Sodium 140, potassium is 4.4, chloride 109, bicarb 24, BUN is 30, creatinine is 2.0. Troponin since admission were 0.44 and 0.273. Triglycerides are 432. Cholesterol is 155, HDL 35. TSH is 2.08, point of care troponin was 0.03. IMPRESSION: An 87-year-old male with known ischemic heart disease presented with symptoms that are suggestive of tachypalpitations or arrhythmia with sudden onset tachyarrhythmias. He has had no further chest pain or discomfort, atrial or ventricular arrhythmias not completely excluded. Cardiac enzymes specifically troponins are elevated. Would consider this a non-ST segment elevation myocardial infarction initially, question whether this represents recent graft compromise or ongoing ischemia versus demand based ischemia in association with atrial arrhythmia. Discussed this in detail with the patient, he is appropriately anticoagulated with heparin. PLAN: Will be to intensify medical therapy given hypertensive presentation and history of tachypalpitations. Will increase metoprolol in hospital, increase activities, consider stress testing either inpatient or outpatient unless symptoms or arrhythmias manifest or significant exercise intolerance noted. The patient is agreeable to a trial of medical regimen. Will continue to follow patient closely in hospital.
[2017-01-20 15:30] LABS: PARTIAL THROMBOPLASTIN RATIO 1.9
[2017-01-20 16:06] VITALS: BP 124/63; PULSE 76; TEMP 37; O2SAT 98
--- NOTE | 2017-01-20 17:35 | Family Medicine Progress Note ---
Progress Note Date of Service Jan 20, 2017. Subjective Pt evaluation today including: conversation w/ patient, physical exam, chart review, lab review, conversation w/ consultant internship, review of inpatient medication list Pain: none PO Intake: good Voiding: no voiding problems Patient was admitted yesterday for palpitations and extreme fatigue Patient is feeling much better today and is without any chest pain, palpitations , fatigue or shortness of breath Constitutional: No fever, No chills, No sweats Respiratory: No cough, No sputum, No shortness of breath, No dyspnea on exertion Cardiovascular: No chest pain, No orthopnea, No edema, No palpitations Abdomen: No pain, No nausea, No vomiting, No diarrhea, No constipation Medications Current Inpatient Medications Medications (Trade) Dose Ordered Sig/Channing Route Start Time Stop Time Status Last Admin Dose Admin Finasteride (Proscar Tab) 5 mg QAM PO 01/20/17 09:00 02/19/17 08:59 01/20/17 08:34 5 MG Fluoxetine HCl (Prozac Cap) 40 mg DAILY PO 01/20/17 09:00 02/19/17 08:59 01/20/17 08:34 40 MG Losartan Potassium (coZAAR TAB) 25 mg QPM PO 01/20/17 21:00 02/19/17 20:59 Pantoprazole Sodium (Protonix Tab) 40 mg QAM PO 01/20/17 09:00 02/19/17 08:59 01/20/17 08:34 40 MG Pravastatin Sodium (Pravachol Tab) 40 mg DAILY PO 01/20/17 09:00 02/19/17 08:59 01/20/17 08:34 40 MG Tamsulosin HCl (Flomax Cap) 0.4 mg BID PO 01/20/17 09:00 02/19/17 08:59 01/20/17 08:34 0.4 MG Mirtazapine (Remeron Tab) 45 mg HS PO 01/19/17 21:00 02/18/17 20:59 01/19/17 20:44 45 MG Glucose (Glucose 40% Gel) 15-30 GRAMS 15 GRAMS... UD PRN PO 01/19/17 16:00 02/18/17 15:59 Glucose (Glucose Chew Tab) 4-8 Tablets 4 Tabl... UD PRN PO 01/19/17 16:00 02/18/17 15:59 Dextrose (Dextrose 50% 50ML Syringe) 25-50ML OF 50% DW IV FOR... UD PRN IV 01/19/17 16:00 02/18/17 15:59 Glucagon (Glucagon Inj) 1 mg UD PRN SQ 01/19/17 16:00 02/18/17 15:59 Insulin Aspart (novoLOG ASPART) SLIDING SCALE If C... ACHS SC 01/19/17 16:00 02/18/17 15:59 Aspirin (Ecotrin Tab) 81 mg QAM PO 01/20/17 09:00 02/19/17 08:59 01/20/17 08:34 81 MG Heparin Sodium (Porcine) 57025 unit/Dextrose 500 ml @ 22 mls/hr [id number] PRN IV 01/20/17 00:30 02/19/17 00:29 01/20/17 08:43 22 MLS/HR Metoprolol Tartrate (Lopressor Tab) 12.5 mg BID PO 01/20/17 21:00 02/19/17 08:59 Amlodipine Besylate (Norvasc Tab) 2.5 mg HS PO 01/20/17 21:00 02/19/17 20:59 Objective Vital Signs Date Time Temp Pulse Resp B/P (MAP) Pulse Ox O2 Delivery O2 Flow Rate FiO2 01/20/17 16:06 37.0 76 18 124/63 (83) 98 Room Air 01/20/17 16:00 Room Air 01/20/17 12:48 37.0 70 16 131/63 (85) 99 Room Air 01/20/17 12:00 Room Air 01/20/17 08:17 36.5 76 18 128/64 (85) 93 Room Air 01/20/17 08:00 Room Air 01/20/17 04:00 36.5 72 165/73 (103) 96 Room Air 01/20/17 04:00 96 Room Air 01/20/17 00:00 95 Room Air 01/19/17 22:50 36.6 72 18 180/82 (114) 95 Room Air 01/19/17 20:00 99 Room Air 01/19/17 19:48 36.6 67 18 172/77 (108) 97 Room Air 01/19/17 19:35 69 161/69 (99) 01/19/17 17:35 71 20 186/92 96 Physical Exam General Appearance: WD/WN, no apparent distress ENT: hearing grossly normal Neck: thyroid normal, no JVD, no carotid bruits, trachea midline Respiratory/Chest: chest non-tender, lungs clear, normal breath sounds, no respiratory distress, no accessory muscle use Cardiovascular: regular rate, rhythm, no edema, no JVD, no murmur Abdomen: normal bowel sounds, non tender, soft Extremities: non-tender, no calf tenderness, normal capillary refill Neurologic/Psychiatric: alert, normal mood/affect, oriented x 3 Skin: normal color, warm/dry, no rash Laboratory Results Results Past 24 Hours Test 01/19/17 20:47 01/19/17 21:59 01/20/17 06:56 01/20/17 07:18 Range/Units Bedside Glucose 124 141 70-99 mg/dl White Blood Count 4.87 4.49 4.8-10.8 K/uL Red Blood Count 3.92 4.08 4.7-6.1 M/uL Hemoglobin 11.5 12.4 14.0-18.0 g/dL Hematocrit 35.4 36.7 42-52 % Mean Corpuscular Volume 90.3 90.0 80-100 fL Mean Corpuscular Hemoglobin 29.3 30.4 25-34 pg Mean Corpuscular Hemoglobin Concent 32.5 33.8 32-36 g/dl Platelet Count 137 119 130-400 K/uL Mean Platelet Volume 10.8 10.8 7.4-10.4 fL Neutrophils (%) (Auto) 46.2 55.4 % Lymphocytes (%) (Auto) 32.9 29.6 % Monocytes (%) (Auto) 12.7 8.5 % Eosinophils (%) (Auto) 7.4 5.6 % Basophils (%) (Auto) 0.6 0.7 % Neutrophils # (Auto) 2.25 2.49 1.4-6.5 K/uL Lymphocytes # (Auto) 1.60 1.33 1.2-3.4 K/uL Monocytes # (Auto) 0.62 0.38 0.11-0.59 K/uL Eosinophils # (Auto) 0.36 0.25 0-0.5 K/uL Basophils # (Auto) 0.03 0.03 0-0.2 K/uL RDW Standard Deviation 45.1 45.0 36.4-46.3 fL RDW Coefficient of Variation 13.7 13.6 11.5-14.5 % Immature Granulocyte % (Auto) 0.2 0.2 % Immature Granulocyte # (Auto) 0.01 0.01 0.00-0.02 K/uL Troponin I 0.444 0.273 0-0.045 ng/ml Activated Partial Thromboplast Time 32.9 21.0-31.0 SECONDS Partial Thromboplastin Ratio 1.3 Sodium Level 140 136-145 mmol/L Potassium Level 4.4 3.5-5.1 mmol/L Chloride Level 109 98-107 mmol/L Carbon Dioxide Level 24 21-32 mmol/L Anion Gap 7.0 3-11 mmol/L Blood Urea Nitrogen 30 7-18 mg/dl Creatinine 2.01 0.60-1.40 mg/dl Est Creatinine Clear Calc Drug Dose 29.5 ml/min Estimated GFR () 34.0 Estimated GFR (Non- 29.4 BUN/Creatinine Ratio 14.7 10-20 Random Glucose 157 70-99 mg/dl Estimated Average Glucose 180 mg/dl Hemoglobin A1c 7.9 4.5-5.6 % Calcium Level 8.8 8.5-10.1 mg/dl Triglycerides Level 432 0-150 mg/dl Cholesterol Level 155 0-200 mg/dl HDL Cholesterol 35 mg/dl LDL Cholesterol, Calculated mg/dl VLDL Cholesterol, Calculated mg/dl Cholesterol/HDL Ratio 4.4 Test 01/20/17 11:20 01/20/17 14:41 01/20/17 16:38 Range/Units Bedside Glucose 140 110 70-99 mg/dl Activated Partial Thromboplast Time 49.9 21.0-31.0 SECONDS Partial Thromboplastin Ratio 1.9 Assessment and Plan Assessment: 87 year old male with a PMH of CAD (triple bypass), and HTN was admitted to [facility] for 15 minute history of palpitations and fatigue. Was found to have a rise in his troponins overnight to 0.444 and had new t wave inversions on EKG. Cardiology were consulted who think that the patient either suffered from a tachyarrythmia or a non stemi. Patient is on a heparin drip, has had his blood pressure medication increased and will be monitored overnight for any further events. Plan: Palpitations continue to monitor on telemetry EKG with T wave inversions now resolved troponins with max of 0.444 and trending down heparin drip echo without any wall motion abnormalities cardiology consulted HTN metoprolol increased to 12.5 bid continue losartan 25 md qhs continue amlodipine 2.5 mg OD Diabetes Mellitus HbA1c 7.9 start ISS glipizide held possibly discharge on metformin, discuss with patient medical educator consult ordered Hypertriglyceridemia TG shown to be 432 on lab testing this morning switch from pravastatin to atorvastatin (high dose 80MG) start niacin 500mg at bedtime follow lipid panel as outpatient ERICKSON on CKD stage 4 creatinine 2.0 baseline 1.5-2.3 encourage PO intake continue to monitor CAD continue aspirin, statin, losartan and metoprolol hx of triple bypass BPH continue finasteride Depression continue prozac and mirtazapine GERD continue protonix DVT prophylaxis: heparin drip Diet: regular Code: Full Dispo: home tomorrow (talk to cardiology), PT/OT ordered Continued [facility] stay due to: multiple IV medications needed Assessment/Plan Resident Physician Supervision Note: I was present with Dr. Arnold during the history and exam. I discussed the case with the resident and agree with the findings and plan as documented in the note. Any exceptions or clarifications are listed here. 87 y/o male h/o DMII, HTN, CAD s/p CABG presents w/ 15 minute episode of palpitations and fatigue which resolved with rest. At present, pt feels that presenting fatigue has resolved and palpitations has not recurred. Sx occurred in a state of high arousal/anxiety. On examination, S1/S2 nl RRR no MCG, 1+ pitting edema tot he midshin b/l. CTAB. NT/ND BS +ve NSTEMI - Cardiology consulted. EKG changes resolved. Troponin elevation as noted. Echo complete. [employer] as noted above. HTN: increase toprol, continue losartan, amlodipine DMII - A1c - 7.9 - holding glipizide, would see if could d/c and start byetta on discharge - continue ISS HLD - continue high dose atorvastatin, would recommend holding on niacin until after discharge at least 2/2 SAUMYA ERICKSON on CKD IV - encourage PO hydration, avoid nephrotoxic medications CAD s/p CABG - continue ASA, losartan, metoprolol and atorvastatin
[2017-01-20 20:05] VITALS: BP 105/70; PULSE 89; TEMP 36.8; O2SAT 96
[2017-01-20] MEDS: MIRTAZAPINE TAB 15 MG TAB PO SCH (21:43)
[2017-01-20] MEDS: AMLODIPINE BESYLATE 5 MG TAB PO SCH (21:44)
[2017-01-20] MEDS: METOPROLOL TARTRATE 25 MG TAB PO SCH (21:45)
[2017-01-20] MEDS: LOSARTAN POTASSIUM 25 MG TAB PO SCH (21:46)
[2017-01-21] VITALS (7 sets, daily range): BP systolic 135–166; BP diastolic 68–79; PULSE 55–70; TEMP 36.3–36.8; O2SAT 94–98
[2017-01-21] MEDS ORDERED: ACETAMINOPHEN 325 MG TAB PO PRN (03:00)
[2017-01-21 05:54] LABS: HEMATOCRIT 38.2 % (42-52); MEAN CELL VOLUME 90.1 fL (80-100); MEAN CORPUSCULAR HEMOGLOBIN 29.7 pg (25-34); MEAN PLATELET VOLUME 11.1 fL (7.4-10.4); PLATELET COUNT 138 K/uL (130-400); RED BLOOD COUNT 4.24 M/uL (4.7-6.1); WHITE BLOOD COUNT 5.23 K/uL (4.8-10.8)
[2017-01-21 06:06] LABS: PARTIAL THROMBOPLASTIN RATIO 1.1
[2017-01-21 06:13] LABS: BUN/CREATININE RATIO 13.7 (10-20); CALCIUM 8.8 mg/dl (8.5-10.1); CREATININE 2.15 mg/dl (0.60-1.40); POTASSIUM 4.1 mmol/L (3.5-5.1)
[2017-01-21] MEDS: ASPIRIN 81 MG ECTAB PO SCH (08:13)
[2017-01-21] MEDS: PANTOprazole SOD 40 MG TAB PO SCH (08:13)
[2017-01-21] MEDS: METOPROLOL TARTRATE 25 MG TAB PO SCH ×2 (08:15→21:17)
[2017-01-21] MEDS: TAMSULOSIN HCL 0.4 MG CAP PO SCH ×2 (08:15→21:17)
[2017-01-21] MEDS: NIASPAN 500 MG TABCR PO SCH (08:16)
[2017-01-21] MEDS: FLUOXETINE HCL 20 MG CAP PO SCH (08:16)
[2017-01-21] MEDS: ATORVASTATIN 40 MG TAB PO SCH (08:17)
[2017-01-21] MEDS: FINASTERIDE 5 MG TAB PO SCH (08:17)
[2017-01-21] MEDS: INSULIN ASPART 100 UNITS/ML 3 ML PEN SC SCH ×4 (08:20→21:00)
[2017-01-21] MEDS ORDERED: METOPROLOL TARTRATE 25 MG TAB PO SCH (09:00)
--- NOTE | 2017-01-21 09:45 | Family Medicine Progress Note ---
Progress Note Date of Service Jan 21, 2017. Subjective Pt evaluation today including: conversation w/ patient, physical exam, chart review, lab review The patient was seen and examined at bedside. No acute overnight events. Telemetry shows sinus rhythm in the 60s. Pt has not experienced a re- exacerbation of symptoms. Patient is resting comfortably in bed. Denies having any pain. Eating and urinating well. Plan of care was described to the patient and all questions were answered. Constitutional: + fatigue, No fever, No chills, No sweats Respiratory: No cough, No sputum, No wheezing, No shortness of breath, No dyspnea on exertion Cardiovascular: No chest pain Abdomen: No pain, No nausea, No vomiting, No diarrhea Musculoskeletal: No joint pain, No muscle pain Male : No dysuria, No incontinence Skin: No rash Objective Physical Exam General Appearance: WD/WN, no apparent distress Neck: supple Respiratory/Chest: chest non-tender, lungs clear, normal breath sounds, no respiratory distress, no accessory muscle use Cardiovascular: regular rate, rhythm, no edema, no gallop, no JVD, no murmur Abdomen: normal bowel sounds, non tender, soft, no organomegaly, no pulsatile mass Extremities: normal range of motion, non-tender, normal inspection, no pedal edema, no calf tenderness 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 Pt had new T wave inversions on EKG. Troponins peaked at 0.444. Per cards the elevated trops were from tachyarrhythmia or a NSTEMI. Patient was started on a heparin drip. IV site came out overnight on 01/20/17, pt declined a reinsertion of the IV site and the Heparin drip was subsequently stopped by the overnight team. Patient was fatigued on 01/21/[address] Adam the decision was made to keep observing the patient for a stress test on Monday. Pt agreed to have the IV site replaced. Case Management needs to be made aware that the patient would be staying for the weekend. Strong Anterior Chest Pulsations / Discomfort * Currently sinus on tele and hasn't had any pounding chest discomfort since admission. TSH on admission was 2. * EKG with T wave inversions now resolved * Troponins with max of 0.444 and trending down. * Echo without any wall motion abnormalities. * Cards (Dr. Adam) - continue to monitor on Tele, stress test on Monday. * EKG daily in AM. ERICKSON on CKD stage 4 * creatinine 2.01-->2.15, baseline 1.5-2.3 * Restarting IVF at 55mls/hr of Normosol. HTN * c/w Lopressor 12.5mg BID * continue Losartan 25 mg QHS * continue Amlodipine 2.5 mg OD Diabetes Mellitus * HbA1c 7.9 * Novolog with Meals, no Lantus ordered but pt's BS have been between 120-160s. * Glipizide held * Because of CKD Metformin unlikely on DC. * software educator consult ordered. Hypertriglyceridemia * TG shown to be 432 on lab testing this morning * c/w Atorvastatin (high dose 80MG) - will need Rx on DC * c/w Niacin 500mg at bedtime - will need Rx on DC * Follow lipid panel as outpatient CAD * hx of Triple Bypass. * Continue aspirin 81mg daily, statin, losartan and metoprolol BPH * Continue finasteride 5mg daily * c/w Flomax 0.4mg daily. Depression * continue Prozac and Mirtazapine 45mg daily GERD * continue Protonix 40mg daily. DVT prophylaxis: Hep SQ BID. MSK: PT and OT. Diet: DM2 Dispo: Continued monitoring on Tele. Code: Full Resident Involvement: Resident Care Provided Care Provided: Adult Hospital Medicine Assessment/Plan Resident Physician Supervision Note: I was present with Dr. Yao during the history and exam. I discussed the case with the resident and agree with the findings and plan as documented in the note. Any exceptions or clarifications are listed here. 87 y/o male h/o DMII, HTN, CAD s/p CABG presents w/ 15 minute episode of palpitations and fatigue which resolved with rest. Palpitations have not recurred but patient reports increased fatigue and decreased exertional tolerance compared to yesterday. S1/S2 nl RRR no MCG, 1+ pitting edema tot he midshin b/l. CTAB. NT/ND BS +ve NSTEMI - Cardiology consulted. EKG changes resolved. Troponin elevation as noted. Echo complete. [employer] [facility] as noted above. Because of the worsening fatigue, concur w/ cardiology re: need for inpatient evaluation via stress with potential cath. Pt in agreement with same HTN: continue losartan, amlodipine, metoprolol DMII - A1c - 7.9 - holding glipizide, would see if could d/c and start byetta on discharge - continue ISS HLD - continue high dose atorvastatin, would recommend holding on niacin until after discharge at least 2/2 SAUMYA ERICKSON on CKD IV - encourage PO hydration, avoid nephrotoxic medications CAD s/p CABG - continue ASA, losartan, metoprolol and atorvastatin
--- NOTE | 2017-01-21 10:31 | Cardiology Follow-Up ---
Subjective Subjective Date of Service: Jan 21, 2017. Pt evaluation today including: conversation w/ patient, physical exam, chart review, lab review, review of studies, review of inpatient medication list Additional Details: Pt seen and examined, states that he does not feel well today. No recurrent palpitations but feels exhausted. States that short walk in the hallway made him feel "wiped out". No chest pain, palpitations, sob, lightheadedness or dizziness. Tele reviewed: sinus rhythm without arrhythmia or significant ectopy. Problem List Medical Problems: (1) Acute renal failure Status: Acute (2) C1 cervical fracture Status: Acute (3) Chest pain Status: Acute (4) Dehydration Status: Acute (5) Elevated serum creatinine Status: Acute (6) Fatigue Status: Acute (7) General weakness Status: Acute (8) Nausea vomiting and diarrhea Status: Acute (9) Obstructive uropathy Status: Acute (10) Odontoid fracture Status: Acute (11) Palpitations Status: Acute (12) Rectal bleeding Status: Acute (13) Scaphoid fracture Status: Acute (14) Sepsis Status: Acute (15) Urinary retention Status: Acute (16) UTI (urinary tract infection) Status: Acute Review of Systems Constitutional: No fever, No chills, No sweats Respiratory: No cough, No sputum, No shortness of breath, No dyspnea on exertion Cardiac: No chest pain, No orthopnea, No edema, No palpitations Abdomen: No pain, No nausea, No vomiting, No diarrhea, No constipation Objective Vital Signs Last Vital Signs Documentation Date Time Temp Pulse Resp B/P (MAP) Pulse Ox O2 Delivery O2 Flow Rate FiO2 01/21/17 08:02 36.5 70 16 166/68 (100) 96 01/21/17 04:00 Room Air Physical Exam: General Appearance: WD/WN, no apparent distress Eyes: bilateral eyes normal inspection, bilateral eyes PERRL, bilateral eyes EOMI ENT: normal ENT inspection, hearing grossly normal, pharynx normal Neck: supple, no adenopathy, thyroid normal, no JVD, no carotid bruits, trachea midline Respiratory/Chest: chest non-tender, lungs clear, normal breath sounds, no respiratory distress, no accessory muscle use Cardiovascular: regular rate, rhythm, no edema, no JVD, no murmur, + gallop/S4 Abdomen: normal bowel sounds, non tender, soft, no organomegaly Extremities: non-tender, normal inspection, no pedal edema, no calf tenderness , normal capillary refill, pelvis stable 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 tachypalpitations no recurrence however, very fatigued today concern would be that he suffered myocardial insult no significant objective findings but given symptoms would like to continue tele monitoring for now will uptitrate metoprolol if heart rates allow will require stress testing or possible cardiac cath prior to d/c will follow clinically to determine 2. CAD cont asa and atorvastatin 3. renal failure ? volume depletion may need to hold ARB cont to monitor on tele Continued [facility] stay due to: multiple IV medications needed
[2017-01-21] MEDS ORDERED: THIAMINE HCL 100 MG TAB PO ONE (11:30)
[2017-01-21] MEDS: HEPARIN SOD 5000 UNIT/0.5 ML CARP SQ SCH ×2 (15:30→22:30)
[2017-01-21] MEDS: NORMOSOL R 1,000 ML IV SCH (16:38)
[2017-01-21] MEDS: MIRTAZAPINE TAB 15 MG TAB PO SCH (21:16)
[2017-01-21] MEDS: AMLODIPINE BESYLATE 5 MG TAB PO SCH (21:16)
[2017-01-21] MEDS: LOSARTAN POTASSIUM 25 MG TAB PO SCH (21:18)
[2017-01-22] VITALS (7 sets, daily range): BP systolic 121–174; BP diastolic 61–77; PULSE 59–69; TEMP 36.3–36.7; O2SAT 94–99
[2017-01-22] MEDS: HEPARIN SOD 5000 UNIT/0.5 ML CARP SQ SCH ×3 (05:58→21:20)
[2017-01-22] MEDS: NORMOSOL R 1,000 ML IV SCH (05:59)
[2017-01-22 06:15] LABS: MEAN CORPUSCULAR HEMOGLOBIN 29.7 pg (25-34); MEAN PLATELET VOLUME 10.9 fL (7.4-10.4); PLATELET COUNT 126 K/uL (130-400); RED BLOOD COUNT 4.11 M/uL (4.7-6.1); WHITE BLOOD COUNT 5.29 K/uL (4.8-10.8)
[2017-01-22 06:53] LABS: BUN/CREATININE RATIO 14.7 (10-20); CALCIUM 8.7 mg/dl (8.5-10.1); CREATININE 1.97 mg/dl (0.60-1.40); POTASSIUM 4.5 mmol/L (3.5-5.1)
--- NOTE | 2017-01-22 07:18 | Family Medicine Progress Note ---
Progress Note Date of Service Jan 22, 2017. Subjective Pt evaluation today including: conversation w/ patient, physical exam, chart review, lab review The patient was seen and examined at bedside. Tele showed sinus rhythm overnight. Feels that he may have passed a kidney stone overnight . Urine was strained and no stone was found. He thinks his urine smelled funny. Patient is resting comfortably in bed. Eating and urinating well. Plan of care was described to the patient and all questions were answered. Constitutional: No fever, No chills, No sweats Eyes: No redness Respiratory: No cough, No sputum Cardiovascular: No chest pain Abdomen: No pain, No nausea, No vomiting, No diarrhea Male : No dysuria Neurologic: No memory loss Objective Physical Exam Notes: General Appearance: WD/WN, no apparent distress Neck: supple Respiratory/Chest: chest non-tender, lungs clear, normal breath sounds, no respiratory distress, no accessory muscle use Cardiovascular: regular rate, rhythm, no edema, no gallop, no JVD, no murmur Abdomen: normal bowel sounds, non tender, soft, no organomegaly, no pulsatile mass Extremities: normal range of motion, non-tender, normal inspection, no pedal edema, no calf tenderness 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 for 15 minute history of palpitations and fatigue. Pt had new T wave inversions on EKG. Troponins peaked at 0.444. Per cards the elevated trops were from tachyarrhythmia or a NSTEMI. Patient was started on a heparin drip. IV site came out overnight on 01/20/17, pt declined a reinsertion of the IV site and the Heparin drip was subsequently stopped by the overnight team. Patient was fatigued on 01/21/[address] Adam the decision was made to keep observing the patient for a stress test on Monday. Pt agreed to have the IV site replaced. Patient believes he passed a kidney stone. Will get a UA. Strong Anterior Chest Pulsations / Discomfort * Currently sinus on tele and hasn't had any pounding chest discomfort since admission. TSH on admission was 2. * EKG with T wave inversions now resolved * Troponins with max of 0.444 and trending down. * Echo without any wall motion abnormalities. * Cards (Dr. Adam) - continue to monitor on Tele, stress test on Monday. ERICKSON on CKD stage 4 * creatinine 2.01-->2.15, baseline 1.5-2.3 * c/w IVF at 55mls/hr of Normosol. HTN * c/w Lopressor 12.5mg BID * continue Losartan 25 mg QHS * continue Amlodipine 2.5 mg OD Diabetes Mellitus * HbA1c 7.9 * Novolog with Meals, no Lantus ordered but pt's BS have been between 120-160s. * Glipizide held * Because of CKD Metformin unlikely on DC. * certified breastfeeding educator consult ordered. Hypertriglyceridemia * TG shown to be 432 on lab testing this morning * c/w Atorvastatin (high dose 80MG) - will need Rx on DC * c/w Niacin 500mg at bedtime - will need Rx on DC * Follow lipid panel as outpatient CAD * hx of Triple Bypass. * Continue aspirin 81mg daily, statin, losartan and metoprolol BPH * Continue finasteride 5mg daily * c/w Flomax 0.4mg daily. Depression * continue Prozac and Mirtazapine 45mg daily GERD * continue Protonix 40mg daily. DVT prophylaxis: Hep SQ BID. MSK: PT and OT. Diet: DM2 Dispo: Continued monitoring on Tele. Code: Full Resident Involvement: Resident Care Provided Care Provided: Adult [facility] Medicine Assessment/Plan Resident Physician Supervision Note: I was present with Dr. Yao during the history and exam. I discussed the case with the resident and agree with the findings and plan as documented in the note. Any exceptions or clarifications are listed here. 87 y/o male h/o DMII, HTN, CAD s/p CABG presents w/ 15 minute episode of palpitations and fatigue which resolved with rest. Pt complains of a sharp pain during urination overnight with a foul smelling urine which is similar to previous episodes of nephrolithiasis for him. Increased fatigue and decreased exertional tolerance has improved compared to yesterday but persists. S1/S2 nl RRR no MCG, 1+ pitting edema tot he midshin b/l. CTAB. NT/ND BS +ve Urinary complaint - ?UTI v. stone - urinalysis today with evaluation pending. NSTEMI - Cardiology consulted. EKG changes resolved. Troponin elevation as noted. Echo complete. [employer] as noted above. Because of the worsened fatigue, concur w/ cardiology re: need for inpatient evaluation via stress with potential cath. Pt in agreement with same HTN: continue losartan, amlodipine, metoprolol DMII - A1c - 7.9 - holding glipizide, would see if could d/c and start byetta on discharge - continue ISS HLD - continue high dose atorvastatin, would recommend holding on niacin until after discharge at least 2/2 SAUMYA ERICKSON on CKD IV - encourage PO hydration, avoid nephrotoxic medications CAD s/p CABG - continue ASA, losartan, metoprolol and atorvastatin
[2017-01-22] MEDS: NIASPAN 500 MG TABCR PO SCH (09:08)
[2017-01-22] MEDS: TAMSULOSIN HCL 0.4 MG CAP PO SCH ×2 (09:08→21:10)
[2017-01-22] MEDS: PANTOprazole SOD 40 MG TAB PO SCH (09:08)
[2017-01-22] MEDS: THIAMINE HCL 100 MG TAB PO SCH (09:08)
[2017-01-22] MEDS: FINASTERIDE 5 MG TAB PO SCH (09:08)
[2017-01-22] MEDS: ATORVASTATIN 40 MG TAB PO SCH (09:08)
[2017-01-22] MEDS: ASPIRIN 81 MG ECTAB PO SCH (09:08)
[2017-01-22] MEDS: METOPROLOL TARTRATE 25 MG TAB PO SCH ×2 (09:12→21:12)
[2017-01-22] MEDS: INSULIN ASPART 100 UNITS/ML 3 ML PEN SC SCH ×4 (09:14→21:19)
[2017-01-22] MEDS ORDERED: AMLODIPINE BESYLATE 5 MG TAB PO ONE (09:45)
[2017-01-22] MEDS: FLUOXETINE HCL 20 MG CAP PO SCH (09:48)
--- NOTE | 2017-01-22 12:21 | Cardiology Follow-Up ---
Subjective Subjective Date of Service: Jan 22, 2017. Pt evaluation today including: conversation w/ patient, physical exam, chart review, lab review, review of studies, review of inpatient medication list Additional Details: Pt seen and examined, again today significantly fatigued and dyspnic with short walk in hallway. Did pass a kidney stone last PM. Denies cp, palpitations , lightheadedness or dizziness. Tele reviewed: sinus rhythm without arrhythmia or significant ectopy. Problem List Medical Problems: (1) Acute renal failure Status: Acute (2) C1 cervical fracture Status: Acute (3) Chest pain Status: Acute (4) Dehydration Status: Acute (5) Elevated serum creatinine Status: Acute (6) Fatigue Status: Acute (7) General weakness Status: Acute (8) Nausea vomiting and diarrhea Status: Acute (9) Obstructive uropathy Status: Acute (10) Odontoid fracture Status: Acute (11) Palpitations Status: Acute (12) Rectal bleeding Status: Acute (13) Scaphoid fracture Status: Acute (14) Sepsis Status: Acute (15) Urinary retention Status: Acute (16) UTI (urinary tract infection) Status: Acute Review of Systems Constitutional: + fatigue, No fever, No chills, No sweats Respiratory: No cough, No sputum, No wheezing, No shortness of breath, No dyspnea on exertion Cardiac: No chest pain Abdomen: No pain, No nausea, No vomiting, No diarrhea Musculoskeletal: No joint pain, No muscle pain Male : No dysuria, No incontinence Skin: No rash Objective Vital Signs Last Vital Signs Documentation Date Time Temp Pulse Resp B/P (MAP) Pulse Ox O2 Delivery O2 Flow Rate FiO2 01/22/17 12:00 Room Air 01/22/17 10:43 36.4 64 20 121/61 (81) 95 Physical Exam: General Appearance: WD/WN, no apparent distress Eyes: bilateral eyes normal inspection, bilateral eyes PERRL, bilateral eyes EOMI ENT: normal ENT inspection, hearing grossly normal, pharynx normal Neck: supple Respiratory/Chest: chest non-tender, lungs clear, normal breath sounds, no respiratory distress, no accessory muscle use Cardiovascular: regular rate, rhythm, no edema, no gallop, no JVD, no murmur Abdomen: normal bowel sounds, non tender, soft, no organomegaly, no pulsatile mass Extremities: normal range of motion, non-tender, normal inspection, no pedal edema, no calf tenderness 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 tachy-palpitations no recurrence however, very fatigued again today concern would be that he suffered myocardial insult no significant objective findings but given symptoms would like to continue tele monitoring for now will proceed with dobutamine stress in AM 2. CAD cont asa and atorvastatin 3. renal failure ? volume depletion may need to hold ARB 4. HTN elevated today will give additional amlodipine 5mg daily follow cont to monitor on tele Continued [facility] stay due to: multiple IV medications needed
[2017-01-22] MEDS: AMLODIPINE BESYLATE 5 MG TAB PO SCH (21:11)
[2017-01-22] MEDS: MIRTAZAPINE TAB 15 MG TAB PO SCH (21:11)
[2017-01-22] MEDS: LOSARTAN POTASSIUM 25 MG TAB PO SCH (21:12)
[2017-01-23 00:12] VITALS: BP 159/73; PULSE 60; TEMP 36.6; O2SAT 97
[2017-01-23] MEDS: NORMOSOL R 1,000 ML IV SCH (00:59)
[2017-01-23 03:15] VITALS: BP 166/57; PULSE 63; TEMP 36.4; O2SAT 97
[2017-01-23 03:34] LABS: URINE APPEARANCE CLOUDY (CLEAR); URINE BILIRUBIN NEG (NEG); URINE COLOR YELLOW; URINE EPITHELIAL CELL AUTO 0-5 /lpf (0-5); URINE NITRITE NEG (NEG); URINE SPECIFIC GRAVITY 1.012 (1.000-1.030); UROBILINOGEN NEG (NEG); ZZUR CULT IF INDIC CLEAN CATCH YES
[2017-01-23 03:35] LABS: MANUAL MICROSCOPIC REQUIRED? NO; REVIEW REQ? NO
[2017-01-23 04:41] VITALS: BP 159/74; PULSE 62; O2SAT 97
[2017-01-23 04:51] LABS: HEMATOCRIT 40.2 % (42-52); MEAN CELL VOLUME 90.1 fL (80-100); MEAN CORPUSCULAR HEMOGLOBIN 29.8 pg (25-34); MEAN PLATELET VOLUME 11.4 fL (7.4-10.4); PLATELET COUNT 139 K/uL (130-400); RED BLOOD COUNT 4.46 M/uL (4.7-6.1); WHITE BLOOD COUNT 6.23 K/uL (4.8-10.8)
[2017-01-23 04:52] LABS: MEAN CORPUSCULAR HGB CONC 33.1 g/dl (32-36)
[2017-01-23 05:11] LABS: BUN/CREATININE RATIO 12.8 (10-20); CALCIUM 8.9 mg/dl (8.5-10.1); CREATININE 1.96 mg/dl (0.60-1.40); POTASSIUM 4.5 mmol/L (3.5-5.1)
[2017-01-23] MEDS: HEPARIN SOD 5000 UNIT/0.5 ML CARP SQ SCH (05:22)
[2017-01-23] MEDS: INSULIN ASPART 100 UNITS/ML 3 ML PEN SC SCH (07:00)
[2017-01-23 08:22] VITALS: BP 172/71; PULSE 66; TEMP 36.4; O2SAT 97
[2017-01-23] MEDS: NIASPAN 500 MG TABCR PO SCH (08:53)
[2017-01-23] MEDS: ATORVASTATIN 40 MG TAB PO SCH (08:53)
[2017-01-23] MEDS: PANTOprazole SOD 40 MG TAB PO SCH (08:53)
[2017-01-23] MEDS: ASPIRIN 81 MG ECTAB PO SCH (08:53)
[2017-01-23] MEDS: THIAMINE HCL 100 MG TAB PO SCH (08:54)
[2017-01-23] MEDS: TAMSULOSIN HCL 0.4 MG CAP PO SCH (08:54)
[2017-01-23] MEDS: FINASTERIDE 5 MG TAB PO SCH (08:54)
[2017-01-23] MEDS: FLUOXETINE HCL 20 MG CAP PO SCH (08:54)
[2017-01-23] MEDS: AMLODIPINE BESYLATE 5 MG TAB PO SCH ×2 (09:00→11:37)
[2017-01-23] MEDS ORDERED: METOPROLOL TARTRATE 1 MG/ML VIAL ONE (09:26)
[2017-01-23] MEDS ORDERED: DOBUTamine HCL 12.5 MG/ML 20 ML VIAL ONE (09:26)
[2017-01-23] MEDS ORDERED: ATROPINE SULFATE 0.1 MG/ML 5ML SYR ONE (09:26)
--- NOTE | 2017-01-23 10:23 | Cardiology Follow-Up ---
Subjective Subjective Date of Service: Jan 23, 2017. Pt evaluation today including: conversation w/ patient, physical exam, chart review, lab review, review of studies, review of inpatient medication list Additional Details: Pt seen and examined, states that he's felt fine overnight. Denies cp, sob, palpitations, lightheadedness or dizziness. Tele reviewed: sinus rhythm without arrhythmia or significant ectopy Problem List Medical Problems: (1) Acute renal failure Status: Acute (2) C1 cervical fracture Status: Acute (3) Chest pain Status: Acute (4) Dehydration Status: Acute (5) Elevated serum creatinine Status: Acute (6) Fatigue Status: Acute (7) General weakness Status: Acute (8) Nausea vomiting and diarrhea Status: Acute (9) Obstructive uropathy Status: Acute (10) Odontoid fracture Status: Acute (11) Palpitations Status: Acute (12) Rectal bleeding Status: Acute (13) Scaphoid fracture Status: Acute (14) Sepsis Status: Acute (15) Urinary retention Status: Acute (16) UTI (urinary tract infection) Status: Acute Review of Systems Constitutional: + fatigue, No fever, No chills, No sweats Respiratory: No cough, No sputum, No wheezing, No shortness of breath, No dyspnea on exertion Cardiac: No chest pain Abdomen: No pain, No nausea, No vomiting, No diarrhea Musculoskeletal: No joint pain, No muscle pain Male : No dysuria, No incontinence Skin: No rash Objective Vital Signs Last Vital Signs Documentation Date Time Temp Pulse Resp B/P (MAP) Pulse Ox O2 Delivery O2 Flow Rate FiO2 01/23/17 08:22 36.4 66 20 172/71 (104) 97 Room Air 01/23/17 04:41 4.0 Physical Exam: General Appearance: WD/WN, no apparent distress Eyes: bilateral eyes normal inspection, bilateral eyes PERRL, bilateral eyes EOMI ENT: normal ENT inspection, hearing grossly normal, pharynx normal Neck: supple Respiratory/Chest: chest non-tender, lungs clear, normal breath sounds, no respiratory distress, no accessory muscle use Cardiovascular: regular rate, rhythm, no edema, no gallop, no JVD, no murmur Abdomen: normal bowel sounds, non tender, soft, no organomegaly, no pulsatile mass Extremities: normal range of motion, non-tender, normal inspection, no pedal edema, no calf tenderness 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 tachy-palpitations no recurrence stress test nonischemic no further cardiac testing or intervention necessary at this time 2. CAD cont asa and atorvastatin 3. renal failure stable 4. HTN elevated today will change amlodipine to 10mg po daily ok to d/c to home from cardiac standpoint. Continued [facility] stay due to: multiple IV medications needed
[2017-01-23] MEDS: METOPROLOL TARTRATE 25 MG TAB PO SCH (10:36)
[2017-01-23] MEDS ORDERED: THM100 PO (10:48)
[2017-01-23] MEDS ORDERED: NSP500 PO (10:48)
[2017-01-23] MEDS ORDERED: LPT40 PO (10:48)
[2017-01-23] MEDS ORDERED: ASPEC81 PO (10:48)
[2017-01-23] MEDS ORDERED: NRV5 PO (10:48)
--- NOTE | 2017-01-23 10:53 | Discharge Instructions ---
Discharge Instructions Date of Service Jan 23, 2017. Admission Reason for Admission: Chest Pain, Hypertensive Urgency Discharge Discharge Diagnosis / Problem: Palpitations and fatigue Discharge Goals Goal(s): Learn about illness, Diagnostic testing, Screening Activity Recommendations Activity Limitations: per Instructions/Follow-up section . Instructions / Follow-Up Instructions / Follow-Up You were admitted to the hospital due to palpitations and fatigue. We did an ultrasound of your heart. These did not show any abnormal movement of the heart musculature. We also did a stress test which did not show any loss of blood flow to your heart muscle. We will be adding a few medication in order to help control your blood pressure and help control you cholesterol. Please follow up with Dr. Lindsay (cardiology). We will make the appointment for you. Please phone his office to confirm this We will be having a physical therapist come and work with you at home a couple days a week. If you experience any worsening chest pain, palpitations, dizziness, fatigue, or shortness of breath then please come back to the emergency department immediately. Current Hospital Diet Patient's current hospital diet: N/A Discharge Diet Recommended Diet: AHA Diet (Heart Healthy), Diabetes Type 2 Diet Pending Studies Studies pending at discharge: no Laboratory Results Hemoglobin A1c Test 01/20/17 07:18 Range/Units Estimated Average Glucose 180 mg/dl Hemoglobin A1c 7.9 H 4.5-5.6 % Lipid Panel Test 01/20/17 07:18 Range/Units Triglycerides Level 432 H 0-150 mg/dl Cholesterol Level 155 0-200 mg/dl HDL Cholesterol 35 mg/dl Cholesterol/HDL Ratio 4.4 LDL Cholesterol, Calculated mg/dl Medical Emergencies . Who to Call and When: Medical Emergencies: If at any time you feel your situation is an emergency, please call 911 immediately. . Non-Emergent Contact Non-Emergency issues call your: Primary Care Provider, [employer] . . "Provider Documentation" section prepared by Herbert Arnold. . VTE Core Measure Inpt VTE Proph given/why not?: Unfractionated heparin SQ
[2017-01-23] MEDS ORDERED: AMLODIPINE BESYLATE 5 MG TAB PO ONE (11:00)
[2017-01-23] MEDS ORDERED: PERFLUTREN LIPID MICROSPHERE (DEFINITY) IV ONE (11:19)
[2017-01-23 11:22] VITALS: BP 143/54; PULSE 64; TEMP 36.4; O2SAT 96
--- NOTE | 2017-01-23 12:26 | EXERCISE STRESS ECHO ---
*NOTICE TO RECEIVING LIBERTARIAN AGENCY This information is strictly Confidential and protected under [place] law. [place] law prohibits you from making any further disclosure of this information unless further disclosure is expressly permitted by the written consent of the person to whom it pertains or is authorized by law. A general authorization for the release of medical or other information is not sufficient for this purpose. Hospital accepts no responsibility if the information is made available to any other person, INCLUDING THE PATIENT. Interpretation Summary * Name: JOSTIN MAY Study Date: 01/23/2017 08:41 AM BP: 166/82 mmHg * Patient Location: .2T\S\S229\S\2 HR: 64 * : 1930 (M/d/yyy) Gender: Male Height: 72 in * Age: 87 yrs Ethnicity: CA Weight: 180 lb * Ordering Physician: Lopez Adam * Referring Physician: Self, Referred * Performed By: Jarret Graves RCS * * Reason For Study: Chest Pain * BSA: 2.0 m2 * -- Conclusions -- * Nonischemic dobutamine stress echocardiogram. * No arrhythmias. * Nondiagnostic ST segment depressions with stress but with baseline abnormality. * Normal HR and BP response to dobutamine. Procedure Details * DOBUTAMINE ECHO, CPT#86809 * A contrast injection of Definity was performed to improve assessment of LV function. * Contrast was injected into an intravenous site in the right arm. * One vial of Definity ultrasound contrast was diluted in normal saline to a total volume of 10 ml. A total of '4' ml of solution was administered during imaging. * Lot # [id number] of Definity utilized for procedure. * Expiration date 1DEC. Stress Parameters * The stress portion of this study was personally supervised by the undersigned interpreting physician. * Rest heart rate was '64' BPM. * Rest blood pressure was '166/82' * Maximum heart rate achieved was 129 bpm. * Maximum heart rate was 95 % of maximum age-predicted heart rate. * Maximum blood pressure was '166/82' * Maximum Dobutamine infusion rate was '40' mcg/kg/min. * A total of .5 mg of intravenous Atropine was used to supplement Dobutamine for heart rate response. * Dobutamine infusion was terminated due to achieving target heart rate * A total of 10 mg of IV Metoprolol was administered to reverse Dobutamine-induced tachycardia. * Normal blood pressure response to exercise.
[2017-01-23 12:30] VITALS: BP 143/54; PULSE 64; TEMP 36.4; O2SAT 96
--- NOTE | 2017-01-23 17:11 | Discharge Summary ---
Discharge Summary Date of Service Jan 23, 2017. (Herbert Arnold MD) Discharge Summary Admission Date: Jan 19, 2017 at 16:06 Discharge Date: Jan 23, 2017 Discharge Disposition: Home with services Principal Diagnosis: Palpitations Immunizations: Have You Had Influenza Vaccine: Yes History of Tetanus Vaccine?: No History of Pneumococcal: Yes History of Hepatitis B Vaccine: No Procedures: Dobutamine stress echo Consultations: Cardiology (Herbert Arnold MD) Medication Reconciliation New Medications: Amlodipine Besylate (Amlodipine Besylate) 5 Mg Tab 10 MG PO QAM for 30 Days, #60 TAB Aspirin (Aspirin EC Low Dose) 81 Mg Ectab 81 MG PO QAM for 30 Days, #30 TAB Atorvastatin (Atorvastatin Calcium) 40 Mg Tab 80 MG PO QAM for 30 Days, #60 TAB Niacin (Niacin ER) 500 Mg Tabcr 500 MG PO QAM for 30 Days, #30 TAB Thiamine HCl (Vitamin B-1) 100 Mg Tab 100 MG PO QAM for 30 Days, #30 TAB Continued Medications: Finasteride (Finasteride) 5 Mg Tab 5 MG PO QAM Fluoxetine (Prozac) 40 Mg Cap 40 MG PO DAILY, CAP Glipizide (Glipizide) 5 Mg Tab 2 TAB PO QAM Losartan Potassium (Cozaar) 25 Mg Tab 25 MG PO QPM for 30 Days, TAB 5 Refills Metoprolol Tartrate (Lopressor) (Lopressor) 25 Mg Tab 12.5 MG PO Q2D for 90 Days, TAB 3 Refills Metoprolol Tartrate (Lopressor) (Lopressor) 25 Mg Tab 25 MG PO Q2D, TAB Mirtazapine (Mirtazapine) 45 Mg Tab 45 MG PO HS Pantoprazole (Protonix) 40 Mg Tab 40 MG PO QAM, #30 TAB Tamsulosin Hcl (Flomax) 0.4 Mg Cap 0.4 MG PO BID, CAP Discontinued Medications: Pravastatin Sod (Pravastatin Sodium) 40 Mg Tab 40 MG PO DAILY Discharge Exam Patient had a few loose stools overnight Otherwise without any complaints, denies any chest pain, palpitations or shortness of breath Went for a dobutamine stress echo this morning that was wnl Review of Systems: Constitutional: No fever, No chills, No sweats Respiratory: No cough, No sputum, No shortness of breath, No dyspnea at rest Cardiovascular: No chest pain, No claudication, No palpitations Abdomen: + diarrhea, No pain, No nausea, No vomiting, No constipation Musculoskeletal: No joint pain, No muscle pain Genitourinary - Male: No dysuria Physical Exam: General Appearance: WD/WN, no apparent distress ENT: pharynx normal Neck: no JVD, no carotid bruits, trachea midline Respiratory/Chest: lungs clear, no respiratory distress, no accessory muscle use Cardiovascular: regular rate, rhythm, no murmur, normal peripheral pulses Abdomen / GI: normal bowel sounds, soft, + tenderness (mild RLQ tenderness) Extremities: no calf tenderness, no pedal edema, non-tender Neurologic/Psychiatric: alert, normal mood/affect, oriented x 3 (Herbert Arnold MD) no concerns Review of Systems: Constitutional: No fever Respiratory: No shortness of breath Cardiovascular: No chest pain Abdomen: No pain Physical Exam: General Appearance: no apparent distress Respiratory/Chest: lungs clear, no respiratory distress Cardiovascular: regular rate, rhythm Abdomen / GI: soft Neurologic/Psychiatric: alert, oriented x 3 (Monica Harris M.D.) Hospital Course 87M with a PMH of CAD (triple bypass many years ago), and HTN was admitted to [facility] for 15 minute history of palpitations and fatigue. Pt had new T wave inversions on EKG. Troponins peaked at 0.444. Per cards the elevated trops were from tachyarrhythmia or a NSTEMI. Patient was started on a heparin drip. Patient was fatigued on 01/21/[address] Adam the decision was made to keep observing the patient for a stress test on Monday. The dobutamine stress echo did not show any wall motion abnormalities and the patient was discharged with follow up with Dr. Lindsay as well as his PCP Strong Anterior Chest Pulsations / Discomfort * Currently sinus on tele and hasn't had any pounding chest discomfort since admission. TSH on admission was 2. * EKG with T wave inversions which resolved * Troponins with max of 0.444 and trending down. * Echo without any wall motion abnormalities. * Cards (Dr. Adam) - continue to monitor on Tele, dobutamine stress test without any ischaemia or arrythmias * Final diagnosis likely to be arrythmic event, may need event monitor and will follow with cardiology to make this decision ERICKSON on CKD stage 4 * creatinine 1.86, baseline 1.5-2.3 * Received IVF at 55mls/hr of Normosol. HTN * c/w Lopressor 12.5mg BID * continue Losartan 25 mg QHS * continue Amlodipine 2.5 mg OD Diabetes Mellitus * HbA1c 7.9 * Novolog with Meals, no Lantus ordered but pt's BS have been between 120-160s. * Glipizide restarted upon discharge * Because of CKD Metformin unlikely on DC. * roller engraver consult ordered. Hypertriglyceridemia * TG shown to be 432 on lab testing this morning * c/w increased statin to high dose atorvastatin upon discharge * c/w new prescription of niacin at bedtime * Follow lipid panel as outpatient CAD * hx of Triple Bypass. * Continue aspirin 81mg daily, statin, losartan and metoprolol BPH * Continue finasteride 5mg daily * c/w Flomax 0.4mg daily. Depression * continue Prozac and Mirtazapine 45mg daily GERD * continue Protonix 40mg daily. Total Time Spent: Less than 30 minutes This includes examination of the patient, discharge planning, medication reconciliation, and communication with other providers. (Herbert Arnold MD) Resident Physician Supervision Note: I independently interviewed and examined the patient and verified the hillman history and physical, reviewed labs and image studies, discussed the case with the resident Dr. Arnold and agree with the findings and care plan. Total Time Spent: Greater than 30 minutes (35) (Monica Harris M.D.) Discharge Instructions Please refer to the electronic Patient Visit Report (Discharge Instructions) for additional information. (Herbert Arnold MD) Additional Copies To Vinh Montaon D.O.; Alexis Lindsay M.D.
[2017-01-24] MEDS ORDERED: AMLODIPINE BESYLATE 5 MG TAB PO SCH (09:00)
== END 2017-01-23 12:30 | disposition home health service (06) | DRG 309 ==
LOC: EDBD 11:41 → C.EDC 11:43 → C.2T 16:06 → ENRESERV 17:02
PROVIDERS: ADMIT Internal Medicine Sports Medicine; ATTEND Family Medicine
DX: I49.9 Cardiac arrhythmia, unspecified (principal); N18.4 Chronic kidney disease, stage 4 (severe); N17.9 Acute kidney failure, unspecified; N39.0 Urinary tract infection, site not specified; I25.10 Atherosclerotic heart disease of native coronary artery without angina pectoris; E11.21 Type 2 diabetes mellitus with diabetic nephropathy; I12.9 Hypertensive chronic kidney disease with stage 1 through stage 4 chronic kidney disease, or unspecified chronic kidney disease; Z82.49 Family history of ischemic heart disease and other diseases of the circulatory system; Z79.84 Long term (current) use of oral hypoglycemic drugs; R74.8 Abnormal levels of other serum enzymes; Z95.1 Presence of aortocoronary bypass graft; R00.0 Tachycardia, unspecified; E78.1 Pure hyperglyceridemia; N40.0 Benign prostatic hyperplasia without lower urinary tract symptoms; F32.9 Major depressive disorder, single episode, unspecified; K21.9 Gastro-esophageal reflux disease without esophagitis; Z88.0 Allergy status to penicillin

== ENCOUNTER → 2017-06-28 | Outpatient (CLI) | payer OTHER, MEDICARE ==
[~2017-06-28] MED LIST changes: +ASPI-320 PO; +GLC5 PO; -GLIP-197 PO; +LPT40 PO; -MIRT15TA2 PO; +NRV5 PO; +NSP500 PO; -OXYC-57 PO; +PRS5 PO; -PRVC/40 PO; +RMRS/45 PO; -THIA100T11 PO; +THM100 PO
== END | disposition home or self-care (01) ==
LOC: C.LABSPEC 10:20
PROVIDERS: ATTEND Urology
DX: N39.0 Urinary tract infection, site not specified (principal); N39.41 Urge incontinence

== ENCOUNTER → 2017-10-25 | Outpatient (CLI) | payer OTHER, MEDICARE ==
[~2017-10-25] MED LIST changes: +THIA100T27 PO; -THM100 PO
== END | disposition home or self-care (01) ==
LOC: C.LABSPEC 10:33
PROVIDERS: ATTEND Urology
DX: N39.0 Urinary tract infection, site not specified (principal); N39.41 Urge incontinence; N40.1 Benign prostatic hyperplasia with lower urinary tract symptoms; N28.9 Disorder of kidney and ureter, unspecified

== ENCOUNTER 2019-06-26 04:42 | Observation (INO) ==
[2019-06-26] MEDS ORDERED: ALBUT/IPRATROP 3MG/0.5MG NEB 3 ML VIAL NEB ONE (05:02)
--- NOTE | 2019-06-26 05:10 | Emergency Department Note ---
Impression & Plan Acute exacerbation of chronic obstructive pulmonary disease, Acute respiratory distress, Acute renal insufficiency ED Provider Note Name: JOSTIN MAY Age: 89 Sex: M Arrives Via: Ambulance Informant: Patient, EMS ED Provider: Herbert Uribe MD Chief Complaint: Shortness of breath Impression: Acute Exacerbation of chronic obstructive pulmonary disease Acute Respiratory distress Acute Renal Insufficiency Medical Decision Makin yr old male with history of CAD, HTN, DMII, GERD who likely has underlying COPD from previous smoking history arrived with worsening shortness of breath over 2 weeks, acutely worse this evening. Significant respiratory distress on arrival, and even after hour long neb he still has diffuse expiratory wheezing. Neb used as he clearly was tight/wheezing. No fevers, no sick contacts, nor travel, no other covid risks, but given level of respiratory distress will keep in airborne isolation and defer covid/biofire testing to hospitalist/COVID triage team as per their wishes. Patient comfortable with this plan. Already received Solumedrl by EMS. Will give doxy for coverage as 2 weeks symptoms in ex smoker. No PE risks/history thus no indication emergent CTA chest. He is not septic. EKG very poor baseline with some ST abnormalities though patient without chest pain and Trop looking OK currently. Prior Medical Record and Triage/Nursing Notes reviewed by Me Additional history obtained from EMS Differentials:Reactive airway disease, pneumonia, pneumothorax, COPD, CHF, infections, cardiac ischemia, pulmonary embolism, musculoskeletal, gastrointestinal, as well as other pathologies. amongst other pathologies. Vital Signs: reviewed and remarkable for HTN Interventions: saline lock, duoneb x 1 hr, doxycycline 100mg IV, nss bolus Labs:Reviewed and remarkable for no significant abnormalities Imaging:X ray results are stated below per my interpretation: Chest: 1 view: No infiltrate, no effusion, normal cardiac border. EKG:Per My Interpretation: Indication Shortness of breath: Very poor baseline though patient breathing too hard to stay stil. NSR 70 bpm, qtc 456. No Ectopy. Diffuse ST abnormalities without STEMI. Compared to EKG 01/21/2017 ST changes are new but baseline better, no significant changes. Cardiac/Tele Monitoring: Cardiac Monitoring: An Order was placed for continuous cardiac monitoring. The monitor shows a rate of 70 with a normal sinus rhythm. Consults:Dr Freddy CHOI Hospitalist Plan: Disposition:Hospitalization. Condition: Fair Blood pressure:Elevated - Referred to Hospitalist History of Present Illness:89 / M arrives for evaluation of shortness of breath. Patient notes history of CAD s/p CABG, HTN, DMII, kidney stones, gerd. Admits he was previous smoker and every few months needs to use inhaler/nebulizer for breathing but denies copd, emphysema, nor history of bronchitis, pe, dvt, pneumonia. Over the alst 2 weeks he has not been feeling well and coughing regularly. Notes some mild SOB with exertion though otherwise stable. The last 3 days significant worsening of cough. Productive green sputum. Tonight he was unable to catch his breath and EMS was called. On arrival patient very dyspneic with diffuse wheezing. Given duoneb and 125mg IV solumedrol en route with improvement. Patient notes he feels somewhat short of breath still. He has not been hypoxic for EMS. He has no sick contacts, no recent travel, no known covid contacts. Denies fevers, cp, syncope, headache, neck pain, leg swelling, calf pain, rashes, abdominal pain, urinary/bowel changes, back pain, nor other symptoms. No recent antibiotics. No recent testing for covid or other respiratory illness. ROS: See above HPI for pertinent positives & negatives. A total of 10 systems reviewed and were otherwise negative. Past Medical History:CAD, HTN, DMII, Renal Stones, GERD, hyperlipidemia, anxiety/depression Past Surgical History:CABG, appendectomy Family History:Non-contributor Social History:retired, previous smoker, occasional alcohol, occasional marijuana Home Medications:See Below Allergies:Cefuroxime, PNC Vitals:Blood Pressure: 171/77, Pulse 70, RR 20, T 36.6C, O2 100% on Nebulizer Physical Exam: GENERAL: Patient is ill appearing and in moderate distress. EYES: No scleral icterus, unremarkable pupils. ENT: Mucous membranes moist, no nasal congestion. NECK: No masses appreciated, nomeningismus, trachea is midline. RESPIRATORY: Moderate dyspnea with diffuse retractions, loud wheezing left lobes, decreased sounds throughout right lobes CARDIOVASCULAR: Regular rate and rhythm.No murmurs, rubs, gallops appreciated. GASTROINTESTINAL: Abdomen soft, non-tender, no peritonitis.Bowel sounds positive.No masses appreciated. BACK: No midline tenderness, no CVA tenderness EXTREMITIES: Normal motion all extremities, no cyanosis, no edema. NEUROLOGIC: Alert and oriented, no acute motor or sensory deficits, no focal weakness, cranial nerves grossly intact. SKIN: No rash, no jaundice, no diaphoresis. PSYCH: Appropriate GCS: 15 ED Course: Times/Reassessments: 4:45am on arrival, 5:45a repeat evaluation continued respiratory distress Herbert Uribe MD Past Med/Surg History Social History Preferred Language: Pashto Change Booth Attendant Required: No Beliefs That Will Affect Care: None Current Living Situation: Other Current Living Situation Comment: DAUGHTER Feels Safe at Home: Yes Smoking Status: Former smoker Tobacco Type: cigarettes ; Cigarettes Per Day: QUIT MANY MANY YEARS AGO ; Hx Alcohol Use: Yes Alcohol type: hard liquor Hx Substance Use: Yes substance use type: marijuana Allergies Allergies Allergy/AdvReac Type Severity Reaction Status Date / Time cefuroxime Allergy Intermediate HIVES ? Verified 06/26/19 05:01 SEE NOTES BELOW Penicillins Allergy Mild HIVES - Verified 06/26/19 05:01 SEE NOTES BELOW Home Meds Home Medications Medication Instructions Recorded Confirmed Myrbetriq 25 mg PO HS 01/29/18 06/26/19 amlodipine 2 tab PO QAM 01/29/18 06/26/19 aspirin [Aspir-81] 81 mg PO DAILY 01/29/18 06/26/19 atorvastatin 80 mg PO QAM 01/29/18 06/26/19 cyanocobalamin (vitamin B-12) 1,000 mcg PO QAM 01/29/18 06/26/19 [Vitamin B-12] fluoxetine 40 mg PO QAM 01/29/18 06/26/19 glipizide 2 tab PO QAM 01/29/18 06/26/19 losartan 25 mg PO QPM 01/29/18 06/26/19 metoprolol tartrate 25 mg PO BID 01/29/18 06/26/19 mirtazapine 45 mg PO HS 01/29/18 06/26/19 pantoprazole 40 mg PO QAM 01/29/18 06/26/19 thiamine HCl (vitamin B1) [Vitamin 50 mg PO QAM 01/29/18 06/26/19 B-1] Mucinex Syrup 1 dose PO DIRECTED PRN 06/26/19 06/26/19 albuterol sulfate 1 inh INHALATION QID PRN 06/26/19 06/26/19 Previous Rx's Medication Instructions Recorded docusate sodium [Colace] 100 mg PO BID #60 cap 06/07/18 sennosides [Senokot] 8.6 mg PO HS #30 tab 06/07/18 finasteride 5 mg tablet 5 mg PO HS #90 tab 03/19/19 tamsulosin 0.4 mg capsule 0.4 mg PO DAILY #90 cap 04/19/19 Results & Data (ED) Vital Signs Vital Signs - 24 hr 06/26/19 04:48 06/26/19 04:50 06/26/19 04:51 Temperature 36.6 C 36.6 C Temperature Source Oral Pulse Rate 72 68 72 Pulse Rate [Right Radial] Pulse Rate from SpO2 Sensor 72 72 Respiratory Rate 21 18 29 H Respiratory Effort / Characteristics Non-Labored Respiratory Depth Normal Respiratory Pattern Regular Blood Pressure 164/67 H 164/67 H Blood Pressure Mean 76 99 Blood Pressure Position Sitting Pulse Oximetry 97 97 97 Oxygen Delivery Method Room Air Sepsis Recent Fever Within 48 Hours No Sepsis New/Unexplained Change in Mental Status No Sepsis Action Taken by Nursing No Action Required 06/26/19 05:00 06/26/19 05:24 06/26/19 05:30 Temperature Temperature Source Pulse Rate 68 70 Pulse Rate [Right Radial] 72 Pulse Rate from SpO2 Sensor 69 68 Respiratory Rate 21 18 20 Respiratory Effort / Characteristics Non-Labored Spontaneous Respiratory Depth Respiratory Pattern Blood Pressure 166/69 H 171/77 H Blood Pressure Mean 105 97 Blood Pressure Position Pulse Oximetry 97 96 100 Oxygen Delivery Method Room Air Sepsis Recent Fever Within 48 Hours Sepsis New/Unexplained Change in Mental Status Sepsis Action Taken by Nursing Laboratory Data Result diagrams: 06/26/19 04:30 06/26/19 04:30 Lab Results 06/26/19 06/26/19 06/26/19 Range/Units 04:30 04:30 04:30 WBC 6.42 (4.8-10.8) K/uL RBC 4.25 L (4.7-6.1) M/uL Hgb 12.9 L (14.0-18.0) g/dL Hct 39.6 L (42-52) % MCV 93.2 (80-100) fL MCH 30.4 (25-34) pg MCHC 32.6 (32-36) g/dL RDW Std Deviation 48.3 H (36.4-46.3) fL RDW Coeff of Leeanna 14.2 (11.5-14.5) % Plt Count 144 (130-400) K/uL MPV 11.4 H (7.4-10.4) fL Immature Gran % (Auto) 0.2 % Neut % (Auto) 57.1 % Lymph % (Auto) 25.1 % [place] % (Auto) 9.8 % Eos % (Auto) 7.3 % Baso % (Auto) 0.5 % Immature Gran # (Auto) 0.01 (0.00-0.02) K/uL Neut # (Auto) 3.67 (1.4-6.5) K/uL Lymph # (Auto) 1.61 (1.2-3.4) K/uL [place] # (Auto) 0.63 H (0.11-0.59) K/uL Eos # (Auto) 0.47 (0-0.5) K/uL Baso # (Auto) 0.03 (0-0.2) K/uL PT 10.7 (9.0-12.0) Seconds INR 1.0 (0.9-1.1) APTT 27.3 (21.0-31.0) Seconds PTT Ratio 1.0 Sodium 131 L (136-145) mmol/L Potassium 4.4 (3.5-5.1) mmol/L Chloride 110 H (98-107) mmol/L Carbon Dioxide 26 (21-32) mmol/L Anion Gap -5.0 L (3-11) BUN 35 H (7-18) mg/dl Creatinine 2.27 H (0.6-1.4) mg/dl Est Cr Clr Drug Dosing Not Reportable Est GFR ( Amer) 29.0 Est GFR (Non-Af Amer) 25.0 BUN/Creatinine Ratio 15.4 (10-20) Glucose 199 H (70-99) mg/dl Lactate (0.4-2.0) mmol/L Calcium 9.1 (8.5-10.1) mg/dl Magnesium 2.0 (1.8-2.4) mg/dl Troponin I < 0.015 (0-0.045) ng/ml 06/26/19 Range/Units 05:40 WBC (4.8-10.8) K/uL RBC (4.7-6.1) M/uL Hgb (14.0-18.0) g/dL Hct (42-52) % MCV (80-100) fL MCH (25-34) pg MCHC (32-36) g/dL RDW Std Deviation (36.4-46.3) fL RDW Coeff of Leeanna (11.5-14.5) % Plt Count (130-400) K/uL MPV (7.4-10.4) fL Immature Gran % (Auto) % Neut % (Auto) % Lymph % (Auto) % [place] % (Auto) % Eos % (Auto) % Baso % (Auto) % Immature Gran # (Auto) (0.00-0.02) K/uL Neut # (Auto) (1.4-6.5) K/uL Lymph # (Auto) (1.2-3.4) K/uL [place] # (Auto) (0.11-0.59) K/uL Eos # (Auto) (0-0.5) K/uL Baso # (Auto) (0-0.2) K/uL PT (9.0-12.0) Seconds INR (0.9-1.1) APTT (21.0-31.0) Seconds PTT Ratio Sodium (136-145) mmol/L Potassium (3.5-5.1) mmol/L Chloride (98-107) mmol/L Carbon Dioxide (21-32) mmol/L Anion Gap (3-11) BUN (7-18) mg/dl Creatinine (0.6-1.4) mg/dl Est Cr Clr Drug Dosing Est GFR ( Amer) Est GFR (Non-Af Amer) BUN/Creatinine Ratio (10-20) Glucose (70-99) mg/dl Lactate 1.3 (0.4-2.0) mmol/L Calcium (8.5-10.1) mg/dl Magnesium (1.8-2.4) mg/dl Troponin I (0-0.045) ng/ml Administered Medications Doxycycline Hyclate 100 mg/ (Dextrose) 110 mls @ 50 mls/hr IV NOW STA Stop: 06/26/19 08:08 Last Admin: 06/26/19 06:18 Dose: 50 mls/hr Documented by: [id number] Discontinued Medications Albuterol (Duoneb) 12 ml NEB ONE ONE Stop: 06/26/19 05:03 Last Admin: 06/26/19 05:18 Dose: 12 ml Documented by: [id number] Discharge Plan Visit Data Chief Complaint: Respiratory Distress Stated Complaint: respiratory distress ED Provider: Herbert Uribe Discharge Problem: Acute exacerbation of chronic obstructive pulmonary disease, Acute respiratory distress, Acute renal insufficiency Forms Stand Alone Forms: My [facility] [employer] Prescriptions Prescriptions: No Action finasteride 5 mg tablet 5 mg PO HS Qty: 90 RF: 3 tamsulosin 0.4 mg capsule 0.4 mg PO DAILY Qty: 90 RF: 1 albuterol sulfate 90 mcg/actuation Hfa Aerosol Inhaler 1 inh INHALATION QID PRN (Reason: sob/wheezing) RF: 0 Mucinex Syrup 1 dose PO DIRECTED PRN (Reason: Cough) RF: 0 fluoxetine 40 mg Capsule 40 mg PO QAM RF: 0 atorvastatin 80 mg Tablet 80 mg PO QAM RF: 0 cyanocobalamin (vitamin B-12) [Vitamin B-12] 1,000 mcg Tablet 1,000 mcg PO QAM RF: 0 amlodipine 5 mg Tablet 2 tab PO QAM RF: 0 aspirin [Aspir-81] 81 mg Tablet,Delayed Release (Dr/Ec) 81 mg PO DAILY RF: 0 pantoprazole 40 mg Tablet,Delayed Release (Dr/Ec) 40 mg PO QAM RF: 0 losartan 25 mg Tablet 25 mg PO QPM RF: 0 metoprolol tartrate 50 mg Tablet 25 mg PO BID RF: 0 mirtazapine 45 mg Tablet 45 mg PO HS RF: 0 glipizide 5 mg Tablet 2 tab PO QAM RF: 0 thiamine HCl (vitamin B1) [Vitamin B-1] 50 mg Tablet 50 mg PO QAM RF: 0 Myrbetriq 25 mg Tablet Extended Release 24 Hr 25 mg PO HS RF: 0 sennosides [Senokot] 8.6 mg tablet 8.6 mg PO HS Qty: 30 RF: 0 docusate sodium [Colace] 100 mg capsule 100 mg PO BID Qty: 60 RF: 0
[2019-06-26 05:25] LABS: Basophils # (auto) 0.03 K/uL (0-0.2); Basophils % (auto) 0.5 %; Eosinophils # (auto) 0.47 K/uL (0-0.5); Eosinophils % (auto) 7.3 %; Hematocrit (blood only) 39.6 % (42-52); Hemoglobin 12.9 g/dL (14.0-18.0); Immature Granulocytes # (auto) 0.01 K/uL (0.00-0.02); Immature Granulocytes % (auto) 0.2 %; Lymphocytes # (auto) 1.61 K/uL (1.2-3.4); Lymphocytes % (auto) 25.1 %; Mean Corpuscular Hemoglobin 30.4 pg (25-34); Mean Corpuscular Hgb Conc 32.6 g/dL (32-36); Mean Corpuscular Volume 93.2 fL (80-100); Mean Platelet Volume 11.4 fL (7.4-10.4); Monocytes # (auto) 0.63 K/uL (0.11-0.59); Monocytes % (auto) 9.8 %; Neutrophils # (auto) 3.67 K/uL (1.4-6.5); Neutrophils % (auto) 57.1 %; Platelet Count 144 K/uL (130-400); RDW Coefficient of Variation 14.2 % (11.5-14.5); RDW Standard Deviation 48.3 fL (36.4-46.3); Red Blood Count 4.25 M/uL (4.7-6.1); White Blood Count 6.42 K/uL (4.8-10.8)
[2019-06-26 05:45] LABS: Partial Thromboplastin Time 27.3 Seconds (21.0-31.0); Prothrombin Time 10.7 Seconds (9.0-12.0)
[2019-06-26 05:47] LABS: BUN Creatinine Ratio 15.4 (10-20); Blood Urea Nitrogen 35 mg/dl (7-18); Calcium 9.1 mg/dl (8.5-10.1); Carbon Dioxide 26 mmol/L (21-32); Chloride 110 mmol/L (98-107); Glucose 199 mg/dl (70-99); Potassium 4.4 mmol/L (3.5-5.1); Sodium 131 mmol/L (136-145)
[2019-06-26 05:52] LABS: Troponin I < 0.015 ng/ml (0-0.045)
[2019-06-26] MEDS ORDERED: DOXYCYCLINE HYCLATE 100 MG in DEXTROSE 5% 100 ML IV STA (05:57)
[2019-06-26] MEDS ORDERED: SODIUM CHLORIDE 0.9% 1000ML 500 ML IV ONE (06:21)
[2019-06-26] MEDS ORDERED: SODIUM CHLORIDE 0.9% 500 ML IV SCH (06:45)
--- NOTE | 2019-06-26 07:36 | XRay Report ---
XR chest 1V portable HISTORY: 89 years-old Male Shortness of breath acute shortness of breath COMPARISON: Chest radiograph 01/19/2017 TECHNIQUE: Portable AP view of the chest FINDINGS: Cardiac silhouette is mildly enlarged. Prior median sternotomy. Eventration of the right hemidiaphrag m. Calcified plaque of the thoracic aortic arch. There is no pneumothorax, pleural effusion, airspace consolidation or overt pulmonary edema. Possible nipple shadow projects over the left lung base. Deg enerative changes of the shoulders and spine. IMPRESSION: No acute process. ACT 112: Negative or not required by law. The above report was generated using voice recognition software. It may contain grammatical, syntax o r spelling errors. Electronically signed by: Carlos Rivera M.D. 06/26/2019 7:35 AM
[2019-06-26] MEDS ORDERED: ONDANSETRON INJ 2 MG/ML 2 ML VIAL IV PRN (08:06)
[2019-06-26] MEDS ORDERED: ACETAMINOPHEN 325 MG TAB PO PRN (08:06)
[2019-06-26] MEDS ORDERED: ALBUT/IPRATROP 3MG/0.5MG NEB 3 ML VIAL NEB PRN (08:06)
[2019-06-26] MEDS: ASPIRIN 81 MG ECTAB PO SCH (09:11)
[2019-06-26] MEDS: AMLODIPINE BESYLATE 5 MG TAB PO SCH (09:11)
[2019-06-26] MEDS: FLUOXETINE HCL 20 MG CAP PO SCH (09:11)
[2019-06-26] MEDS: METOPROLOL TARTRATE 25 MG TAB PO SCH ×2 (09:11→21:17)
[2019-06-26] MEDS: ATORVASTATIN 40 MG TAB PO SCH (09:11)
--- NOTE | 2019-06-26 09:11 | History & Physical Report ---
Date of Service June 26, 2019 Assessment & Plan (1) Acute exacerbation of chronic obstructive pulmonary disease: no overt wheezing at time of my exam, but he had just had a nebulizer treatment will use Duoneb QID and q2 PRN hold on Solu Medrol due to extreme hyperglycemia without obvious cause use Doxycycline q12 for 5 days to atypical bacterial coverage not requiring oxygen at this time will make him observation status initially consult PT/OT to make sure he is strong enough for home (2) Acute respiratory distress: due to COPD exacerbation breathing much easier when I assessed the patient (3) Diabetes: hyperglycemia here, sugars > 400 unclear etiology as he was not that hyperglycemic on admission, did NOT get steroids in the ED, perhaps in the ambulance? 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 He says that he has felt this way for the past 2 weeks, slowly getting worse. He denies any fevers or sweats, says he always feels chills. He had a productive cough a few times when this started but otherwise his cough has been just dry or clear/white phlegm. No chest pain. He uses albuterol at home, gives him a little relief. He says that he called his PCP but was not seen in the office, he spoke with a resident. To his recollection he was not treated with steroids or antibiotics the past two weeks. His breathing got worse last night so his daughter suggested he come to the ED. In the ED his vitals were stable, no fever, 100% on room air. His labs were normal, CXR with no evidence of infiltrate to suggest pneumonia. He felt better after a nebulizer treatment. After admission his blood sugar was over 400. Unclear what would cause this, did not get Solu medrol in the ED, perhaps he got it in the ambulance? Again, he denies being on steroids at home. Reviewed COVID 19 risks, he has been in self quarantine for the past few weeks, his daughter has been taking care of him. No fever, no lost of taste or smell. His daughter is not ill. No known contact with person with COVID 19. He was not tested in the ED. Allergies Allergy/AdvReac Type Severity Reaction Status Date / Time cefuroxime Allergy Intermediate HIVES ? Verified 06/26/19 05:01 SEE NOTES BELOW Penicillins Allergy Mild HIVES - Verified 06/26/19 05:01 SEE NOTES BELOW Home Medications Home Medications Medication Instructions Recorded Confirmed Type Myrbetriq 25 mg PO HS 01/29/18 06/26/19 History amlodipine 2 tab PO QAM 01/29/18 06/26/19 History aspirin [Aspir-81] 81 mg PO DAILY 01/29/18 06/26/19 History atorvastatin 80 mg PO QAM 01/29/18 06/26/19 History cyanocobalamin (vitamin B-12) 1,000 mcg PO QAM 01/29/18 06/26/19 History [Vitamin B-12] fluoxetine 40 mg PO QAM 01/29/18 06/26/19 History glipizide 2 tab PO QAM 01/29/18 06/26/19 History losartan 25 mg PO QPM 01/29/18 06/26/19 History metoprolol tartrate 25 mg PO BID 01/29/18 06/26/19 History mirtazapine 45 mg PO HS 01/29/18 06/26/19 History pantoprazole 40 mg PO QAM 01/29/18 06/26/19 History thiamine HCl (vitamin B1) [Vitamin 50 mg PO QAM 01/29/18 06/26/19 History B-1] docusate sodium [Colace] 100 mg PO BID #60 cap 06/07/18 06/26/19 Rx sennosides [Senokot] 8.6 mg PO HS #30 tab 06/07/18 06/26/19 Rx finasteride 5 mg tablet 5 mg PO HS #90 tab 03/19/19 06/26/19 Rx tamsulosin 0.4 mg capsule 0.4 mg PO DAILY #90 cap 04/19/19 06/26/19 Rx Mucinex Syrup 1 dose PO DIRECTED PRN 06/26/19 06/26/19 History albuterol sulfate 1 inh INHALATION QID PRN 06/26/19 06/26/19 History Past Med/Surg History Family History (Updated 06/26/19 @ 09:09 by Ag Payne DO) Other Hypertension Social History Preferred Language: Hebrew Communication Ability: Effective Advertiser Required: No Beliefs That Will Affect Care: None Current Living Situation: Family Current Living Situation Comment: DAUGHTER Other Information That Helps Us Care for You: No Feels Safe at Home: Yes Smoking Status: Former smoker Tobacco Type: cigarettes ; Cigarettes Per Day: QUIT MANY MANY YEARS AGO ; Hx Alcohol Use: Yes Alcohol type: beer, wine and hard liquor Hx Substance Use: No Review of Systems Review of Systems: All systems reviewed & are unremarkable except as noted in HPI & below Constitutional: + chills, + malaise and + weakness; no fever, no sweats, no fatigue and no weight loss Respiratory: + cough; no dyspnea, no dyspnea on exertion, no hemoptysis, no sputum production and no wheezing Cardiovascular: no chest pain and no edema Gastrointestinal: no abdominal pain, no nausea, no vomiting, no constipation and no diarrhea/loose stools Genitourinary: no dysuria, no difficulty urinating and no urinary frequency Musculoskeletal: + muscle weakness; no back pain, no neck pain and no joint pain Physical Exam Constitutional: WD/WN, vitals as above Eyes: PERRL, conjunctivae normal, anicteric sclerae ENMT: external ear and nose normal, oropharynx normal Neck: trachea midline, no thyromegaly Respiratory: normal respiratory effort, lungs clear to auscultation Cardiovascular: RRR, no murmur, no edema Gastrointestinal (Abdomen): normal bowel sounds, soft, nontender, no hepatosplenomegaly Musculoskeletal: no cyanosis or clubbing, extremities motor strength 5/5 Skin: no rashes, warm and dry Neurologic: patellar DTR's 2+ bilat, sensation intact and PERRL, EOMI, accommodation nl, no face palsy, no dysarthria Psychiatric: A+Ox3, euthymic affect Lymphatic: no cervical or axillary lymphadenopathy Results & Data Results & Data ([facility]) Vital Signs (Past 12 Hours) Vital Signs Temp Pulse Pulse Resp BP BP Pulse Ox 06/26/19 08:09 36.5 C 87 18 157/69 H 94 06/26/19 07:26 82 18 146/61 H 100 06/26/19 06:00 71 20 163/77 H 100 06/26/19 05:30 70 20 171/77 H 100 06/26/19 05:24 72 18 96 06/26/19 05:00 68 21 166/69 H 97 06/26/19 04:51 36.6 C 72 29 H 97 06/26/19 04:50 36.6 C 68 18 164/67 H 97 06/26/19 04:48 72 21 164/67 H 97 Laboratory Results Laboratory Results - last 24 hr 06/26/19 06/26/19 06/26/19 04:30 04:30 04:30 WBC 6.42 RBC 4.25 L Hgb 12.9 L Hct 39.6 L MCV 93.2 MCH 30.4 MCHC 32.6 RDW Std Deviation 48.3 H RDW Coeff of Leeanna 14.2 Plt Count 144 MPV 11.4 H Immature Gran % (Auto) 0.2 Neut % (Auto) 57.1 Lymph % (Auto) 25.1 [place] % (Auto) 9.8 Eos % (Auto) 7.3 Baso % (Auto) 0.5 Immature Gran # (Auto) 0.01 Neut # (Auto) 3.67 Lymph # (Auto) 1.61 [place] # (Auto) 0.63 H Eos # (Auto) 0.47 Baso # (Auto) 0.03 PT 10.7 INR 1.0 APTT 27.3 PTT Ratio 1.0 Sodium 131 L Potassium 4.4 Chloride 110 H Carbon Dioxide 26 Anion Gap -5.0 L BUN 35 H Creatinine 2.27 H Est Cr Clr Drug Dosing Not Reportable Est GFR ( Amer) 29.0 Est GFR (Non-Af Amer) 25.0 BUN/Creatinine Ratio 15.4 Glucose 199 H Lactate Calcium 9.1 Magnesium 2.0 Troponin I < 0.015 06/26/19 05:40 WBC RBC Hgb Hct MCV MCH MCHC RDW Std Deviation RDW Coeff of Leeanna Plt Count MPV Immature Gran % (Auto) Neut % (Auto) Lymph % (Auto) [place] % (Auto) Eos % (Auto) Baso % (Auto) Immature Gran # (Auto) Neut # (Auto) Lymph # (Auto) [place] # (Auto) Eos # (Auto) Baso # (Auto) PT INR APTT PTT Ratio Sodium Potassium Chloride Carbon Dioxide Anion Gap BUN Creatinine Est Cr Clr Drug Dosing Est GFR ( Amer) Est GFR (Non-Af Amer) BUN/Creatinine Ratio Glucose Lactate 1.3 Calcium Magnesium Troponin I Diagnostic Findings XR chest 1V portable HISTORY: 89 years-old Male Shortness of breath acute shortness of breath COMPARISON: Chest radiograph 01/19/2017 TECHNIQUE: Portable AP view of the chest FINDINGS: Cardiac silhouette is mildly enlarged. Prior median sternotomy. Eventration of the right hemidiaphragm. Calcified plaque of the thoracic aortic arch. There is no pneumothorax, pleural effusion, airspace consolidation or overt pulmonary edema. Possible nipple shadow projects over the left lung base. Degenerative changes of the shoulders and spine. IMPRESSION: No acute process. Code Status & VTE Plan VTE Prophylaxis Plan VTE Prophylaxis will be ordered: Yes PG Care Time/CCT Total # of Minutes Spent Total Time Spent with Patient: Total time spent is greater than 50% in coordination of care (as documented) at patient's floor/unit and/or counseling patient: Coding Level of Care Code 09776 OBS Care - Level 3 Diagnoses Acute exacerbation of chronic obstructive pulmonary disease J44.1 Acute respiratory distress R06.03 Diabetes E11.9 Coronary artery disease I25.10 Hypertension I10 Chronic kidney disease N18.9
[2019-06-26] MEDS: THIAMINE HCL 50 MG TABLET PO SCH (09:12)
[2019-06-26] MEDS: CYANOCOBALAMIN 500 MCG TABLET (VITAMIN B-12) PO SCH (09:12)
[2019-06-26] MEDS: PANTOprazole 40 MG TAB PO SCH (09:12)
[2019-06-26] MEDS: TAMSULOSIN HCL 0.4 MG CAP PO SCH (09:12)
[2019-06-26] MEDS: DOCUSATE SODIUM 100 MG CAP PO SCH ×2 (09:12→21:17)
[2019-06-26] MEDS ORDERED: levoFLOXacin 500 MG TAB PO SCH (11:00)
[2019-06-26] MEDS: ALBUT/IPRATROP 3MG/0.5MG NEB 3 ML VIAL NEB SCH ×2 (11:21→15:51)
[2019-06-26] MEDS ORDERED: glipiZIDE 5 MG TAB PO ONE (12:00)
[2019-06-26] MEDS: INSULIN ASPART 100 UNITS/ML 3 ML PEN SC SCH ×4 (12:20→21:18)
[2019-06-26] MEDS: HEPARIN SOD 5,000 UNIT/0.5 ML VIAL SQ SCH ×2 (14:20→21:18)
--- NOTE | 2019-06-26 14:45 | Electrocardiogram Report ---
Test Reason : Blood Pressure : / mmHG Vent. Rate : 079 BPM Atrial Rate : 079 BPM P-R Int : 188 ms QRS Dur : 114 ms QT Int : 438 ms P-R-T Axes : 056 034 234 degrees QTc Int : 502 ms Poor data quality, interpretation may be adversely affected Normal sinus rhythm Prolonged QT Abnormal ECG When compared with ECG of 21-JAN-2017 09:51, QT has lengthened Confirmed by Adonay Acosta ([id number]) on 06/26/2019 2:45:04 PM Referred By: REFERRED SELF Confirmed By:Adonay Acosta
[2019-06-26] MEDS ORDERED: INSULIN GLARGINE SOLOSTAR 100 UNITS/ML 3 ML PEN SC ONE (16:30)
[2019-06-26] MEDS ORDERED: MIRTAZAPINE SOLTAB 15 MG PO SCH (21:00)
[2019-06-26] MEDS ORDERED: MIRABEGRON ER 25 MG TAB PO SCH (21:00)
[2019-06-26] MEDS ORDERED: FINASTERIDE 5 MG TAB PO SCH (21:00)
[2019-06-26] MEDS ORDERED: LOSARTAN POTASSIUM 25 MG TAB PO SCH (21:00)
[2019-06-26] MEDS ORDERED: SENNA 8.6 MG TAB PO SCH (21:00)
[2019-06-26] MEDS ORDERED: methylPREDNISolone 50 MG in SYRINGE 0 ML IV SCH (21:00)
[2019-06-27] MEDS: HEPARIN SOD 5,000 UNIT/0.5 ML VIAL SQ SCH ×2 (06:08→15:14)
[2019-06-27 06:36] VITALS: BP 143/67; TEMP 97.5; O2SAT 97
[2019-06-27 07:00] LABS: Hematocrit (blood only) 32.9 % (42-52); Mean Corpuscular Hemoglobin 30.6 pg (25-34); Mean Corpuscular Hgb Conc 33.4 g/dL (32-36); Mean Corpuscular Volume 91.6 fL (80-100); Mean Platelet Volume 10.9 fL (7.4-10.4); Platelet Count 156 K/uL (130-400); RDW Coefficient of Variation 14.3 % (11.5-14.5); RDW Standard Deviation 47.6 fL (36.4-46.3); Red Blood Count 3.59 M/uL (4.7-6.1); White Blood Count 11.05 K/uL (4.8-10.8)
[2019-06-27 07:38] LABS: BUN Creatinine Ratio 22.1 (10-20); Calcium 8.8 mg/dl (8.5-10.1); Creatinine Clr Calc Pharmacy 27.2 ml/min; Est GFR (African American) 31.8; Est GFR (Non-African American) 27.5; Potassium 4.7 mmol/L (3.5-5.1)
[2019-06-27] MEDS ORDERED: SODIUM CHLORIDE 0.9% 500 ML IV SCH (08:00)
[2019-06-27] MEDS: CYANOCOBALAMIN 500 MCG TABLET (VITAMIN B-12) PO SCH (08:11)
[2019-06-27] MEDS: METOPROLOL TARTRATE 25 MG TAB PO SCH (08:11)
[2019-06-27] MEDS: ASPIRIN 81 MG ECTAB PO SCH (08:11)
[2019-06-27] MEDS: DOCUSATE SODIUM 100 MG CAP PO SCH (08:11)
[2019-06-27] MEDS: PANTOprazole 40 MG TAB PO SCH (08:12)
[2019-06-27] MEDS: THIAMINE HCL 50 MG TABLET PO SCH (08:12)
[2019-06-27] MEDS: TAMSULOSIN HCL 0.4 MG CAP PO SCH (08:12)
[2019-06-27] MEDS: FLUOXETINE HCL 20 MG CAP PO SCH (08:12)
[2019-06-27] MEDS: ATORVASTATIN 40 MG TAB PO SCH (08:12)
[2019-06-27] MEDS: AMLODIPINE BESYLATE 5 MG TAB PO SCH (08:12)
[2019-06-27] MEDS: INSULIN ASPART 100 UNITS/ML 3 ML PEN SC SCH ×2 (08:16→12:37)
[2019-06-27] MEDS ORDERED: DOXYCYCLINE HYCLATE 100 MG CAP PO SCH (09:00)
--- NOTE | 2019-06-27 10:52 | Discharge Summary ---
Date of Service June 27, 2019 Admission HPI Per Admitting Provider 89 yo male who lives at home, presents to the ED with chief complaint of feeling congested and short of breath. He says that he has felt this way for the past 2 weeks, slowly getting worse. He denies any fevers or sweats, says he always feels chills. He had a productive cough a few times when this started but otherwise his cough has been just dry or clear/white phlegm. No chest pain. He uses albuterol at home, gives him a little relief. He says that he called his PCP but was not seen in the office, he spoke with a resident. To his recollection he was not treated with steroids or antibiotics the past two weeks. His breathing got worse last night so his daughter suggested he come to the ED. In the ED his vitals were stable, no fever, 100% on room air. His labs were normal, CXR with no evidence of infiltrate to suggest pneumonia. He felt better after a nebulizer treatment. After admission his blood sugar was over 400. Unclear what would cause this, did not get Solu medrol in the ED, perhaps he got it in the ambulance? Again, he denies being on steroids at home. Reviewed COVID 19 risks, he has been in self quarantine for the past few weeks, his daughter has been taking care of him. No fever, no lost of taste or smell. His daughter is not ill. No known contact with person with COVID 19. He was not tested in the ED. Principal Diagnosis Acute bronchitis, possible atypical pneumonia Discharge Exam Constitutional WD/WN, vitals as above Eyes PERRL, conjunctivae normal, anicteric sclerae ENMT external ear and nose normal, oropharynx normal Neck trachea midline, no thyromegaly Respiratory normal respiratory effort, lungs clear to auscultation Cardiovascular RRR, no murmur, no edema Gastrointestinal (Abdomen) normal bowel sounds, soft, nontender, no hepatosplenomegaly Musculoskeletal no cyanosis or clubbing, extremities motor strength 5/5 Skin no rashes, warm and dry Neurologic patellar DTR's 2+ bilat, sensation intact and PERRL, EOMI, accommodation nl, no face palsy, no dysarthria Psychiatric A+Ox3, euthymic affect Lymphatic no cervical or axillary lymphadenopathy Discharge Data Allergies Allergy/AdvReac Type Severity Reaction Status Date / Time cefuroxime Allergy Intermediate HIVES ? Verified 06/26/19 05:01 SEE NOTES BELOW Penicillins Allergy Mild HIVES - Verified 06/26/19 05:01 SEE NOTES BELOW Consultations 06/26/19 05:57 ED Decision to Admit Stat 06/26/19 08:06 Consult Case Management - Discharge Planning Routine Hospital Course (1) Acute bronchitis: no overt wheezing at time of my exam, but he had just had a nebulizer treatment will use Duoneb QID and q2 PRN use Doxycycline q12 for 7 days to atypical bacterial coverage not requiring oxygen at this time patient doing well the next morning, ambulating around the RN station without d istress will plan for Prednisone 40mg daily x 4 more days after discharge Doxycycline 100mg BID x 5 more days use Albuterol, could consider nebulizers at [facility] but he has not required them here (2) Atypical pneumonia: possible atypical pneumonia treat with Doxycycline CXR clear, WBC normal (3) Acute respiratory distress: due to bronchitis breathing much easier when I assessed the patient no hypoxia his entire stay (4) Diabetes: hyperglycemia here, sugars > 400 due to getting Solu Medrol in the ambulance plan to utilize NPH insulin 34 units qAM, give at the same time as Prednisone he did well with this on 06/26 here at the hospital (5) Coronary artery disease: continue home regimen no complaints of chest pain (6) Hypertension: BP normal continue home regimen (7) Chronic kidney disease: Cr is 2.1, at baseline of stage III/IV Total Time Total Time Spent Total Time Spent (In Minutes): 32 minutes Total Time Includes: Examination of the Patient, Discharge Planning and Medication Reconciliation Discharge Plan Discharge Items Patient Disposition: Transfer Inpatient Rehab Fac Reason For Visit: COPD EXACERBATION Discharge Diagnosis: Acute bronchitis, possible atypical pneumonia DM type II with hyperglycemia Condition on Discharge: Good Goals: complete brief course of Prednisone and Doxycycline for COPD exacerbation use NPH insulin short term for control of sugars while on Prednisone improve strength and mobility Activity: Resume your previous activity Non-emergency contact: Primary Care Provider Call non-emergency contact if: you have any medication questions, your symptoms worsen and you have a fever Follow-up/Referrals: Vinh Montaon, [Primary Care Provider] - Diet: Carb Consistent or DM2 Addtl Attending Provider Instructions: Medications: - DOXYCYCLINE: take for 5 more days, twice a day, for COPD exacerbation - PREDNISONE: take 40mg daily for 4 more days, take in the morning - INSULIN NPH: take 34 units daily at the same time as Prednisone to cover for hyperglycemic effects Acute bronchitis, possible atypical pneumonia, weakness and deconditioning no hypoxia, CXR clear without infiltrate responded quite well to steroids, nebulizers and doxycycline recommend that he complete a course of Doxy, Prednisone can use Albuterol inhaler QID as he uses at home, has not been requiring PRN nebulizers here as he has been clear, no wheezing or distress no concerns for COVID 19, no fever, no known contacts, chest x-ray clear DM type II with hyperglycemia caused by Solu Medrol, corrected yesterday with novolog and Lantus pharmacy recommends using NPH insulin at the same time as Prednisone see above for dosing can use Novolog PRN while at rehab, would NOT need any insulin after discharge from rehab Pending Studies at Discharge: No Stand-Alone Forms: My [facility] Skilled Items Patient informed of condition?: Yes DNR: No Discharge Level of Care: Acute rehab Communicable Disease: No Discharge Prognosis: Stable Lines: None Urinary Catheter: No Medications and DC Order Prescriptions: New doxycycline hyclate 100 mg Capsule 100 mg PO BID 5 Days Qty: 10 RF: 0 prednisone 20 mg tablet 40 mg PO DAILY 4 Days Qty: 8 RF: 0 insulin NPH isoph U-100 human 100 unit/mL (3 mL) insulin pen 34 units SQ DAILY Qty: 3 RF: 0 Continued finasteride 5 mg tablet 5 mg PO HS Qty: 90 RF: 3 tamsulosin 0.4 mg capsule 0.4 mg PO DAILY Qty: 90 RF: 1 albuterol sulfate 90 mcg/actuation Hfa Aerosol Inhaler 1 inh INHALATION QID PRN (Reason: sob/wheezing) RF: 0 Mucinex Syrup 1 dose PO DIRECTED PRN (Reason: Cough) RF: 0 fluoxetine 40 mg Capsule 40 mg PO QAM RF: 0 atorvastatin 80 mg Tablet 80 mg PO QAM RF: 0 cyanocobalamin (vitamin B-12) [Vitamin B-12] 1,000 mcg Tablet 1,000 mcg PO QAM RF: 0 amlodipine 5 mg Tablet 2 tab PO QAM RF: 0 aspirin [Aspir-81] 81 mg Tablet,Delayed Release (Dr/Ec) 81 mg PO DAILY RF: 0 pantoprazole 40 mg Tablet,Delayed Release (Dr/Ec) 40 mg PO QAM RF: 0 losartan 25 mg Tablet 25 mg PO QPM RF: 0 metoprolol tartrate 50 mg Tablet 25 mg PO BID RF: 0 mirtazapine 45 mg Tablet 45 mg PO HS RF: 0 glipizide 5 mg Tablet 2 tab PO QAM RF: 0 thiamine HCl (vitamin B1) [Vitamin B-1] 50 mg Tablet 50 mg PO QAM RF: 0 Myrbetriq 25 mg Tablet Extended Release 24 Hr 25 mg PO HS RF: 0 sennosides [Senokot] 8.6 mg tablet 8.6 mg PO HS Qty: 30 RF: 0 docusate sodium [Colace] 100 mg capsule 100 mg PO BID Qty: 60 RF: 0 Discharge Orders: Discharge Order (Routine); Ordered 06/27/19 Ordered By: Ag Payne Admission Data Admit Date/Time: 06/26/19 07:23 Attending Provider: Ag Payne Admit Provider: Ag Payne Primary Care Provider: Vinh Montano Other Providers: Navjot Hayes ; [facility] Other Interventions: Discharge Summary Assessment (RN) Last Done: 06/27/19 14:50 Coding Level of Care Code 32428 OBS Care - Discharge Diagnoses Acute bronchitis J20.9 Atypical pneumonia J18.9 Acute respiratory distress R06.03 Diabetes E11.9 Coronary artery disease I25.10 Hypertension I10 Chronic kidney disease N18.9
[2019-06-27] MEDS ORDERED: predniSONE 20 MG TAB PO STA (10:58)
[2019-06-27] MEDS ORDERED: levoFLOXacin 250 MG TABLET PO SCH (11:00)
[2019-06-27] MEDS ORDERED: NovoLIN-N (NPH) PER UNIT CHARGE SQ STA (11:00)
[2019-06-27 14:47] VITALS: PULSE 79
== END 2019-06-27 15:55 ==
LOC: 2N 04:42 → ED 04:42 → 2N 07:49

== ENCOUNTER 2020-04-20 17:08 | Inpatient (IN) ==
[2020-04-20 17:37] LABS: Basophils # (auto) 0.01 K/uL (0-0.2); Basophils % (auto) 0.4 %; Eosinophils # (auto) 0.12 K/uL (0-0.5); Eosinophils % (auto) 4.3 %; Hematocrit (blood only) 33.8 % (42-52); Hemoglobin 11.3 g/dL (14.0-18.0); Immature Granulocytes # (auto) 0.01 K/uL (0.00-0.02); Immature Granulocytes % (auto) 0.4 %; Lymphocytes # (auto) 0.73 K/uL (1.2-3.4); Mean Corpuscular Hemoglobin 30.4 pg (25-34); Mean Corpuscular Hgb Conc 33.4 g/dL (32-36); Mean Corpuscular Volume 90.9 fL (80-100); Mean Platelet Volume 9.8 fL (7.4-10.4); Monocytes % (auto) 10.7 %; Neutrophils # (auto) 1.64 K/uL (1.4-6.5); Neutrophils % (auto) 58.2 %; Platelet Count 183 K/uL (130-400); RDW Coefficient of Variation 14.6 % (11.5-14.5); RDW Standard Deviation 48.4 fL (36.4-46.3); Red Blood Count 3.72 M/uL (4.7-6.1); White Blood Count 2.81 K/uL (4.8-10.8)
--- NOTE | 2020-04-20 17:39 | Emergency Department Note ---
Impression & Plan Confusion, COVID-19, Weakness ED Provider Note Provider: Dario Casillas MD DATE OF SERVICE: 04/20/2020 CHIEF COMPLAINT: Falls, contusion HISTORY OF PRESENT ILLNESS: Patient is a 89-year-old gentleman with a past medical history of CKD, COPD, GI bleed, ulcer, kidney stone presenting from home via ambulance today stating that he is at several falls and has been weak. EMS reports the patient had some confusion as well. Patient states he has had several falls recently and was seen in the emergency department several times. Is unable to give a good description of how he fell. States he is having some pain around his right hip. States has been a cervical collar since injuring his neck some months ago. Patient denies any chest pain or fevers or shortness of breath but does state he had a bit of a dry cough. Reports the patient tested positive recently for coronavirus. Patient states he lives at home with his daughter. He did allow me to discuss with her via phone history. Daughter reports the patient's had worsening weakness over the last 3 to 4 days with confusion. She states the change in his confusion has been very acute. States he tested positive at the [facility] testing site swab on Monday positive, result called to them on Monday reported by her. She denies any issues with breathing at home besides a slight cough and states his pulse ox has been fine. She states she called [facility] family medicine office where he goes today due to his confusion and falls. States he is not had a fall since when he was seen for here several nights ago but has been much more confused. Reportedly talking about his to friends on the phone today like she is alive. She reports that there is again a sudden change. She states she was recently treated for UTI and finished these antibiotics. REVIEW OF SYSTEMS: A total of 10 review of systems was obtained and negative except as stated above in the HPI. PAST MEDICAL HISTORY: As noted above MEDICATIONS: Reviewed home medications, is on aspirin SOCIAL HISTORY: Lives at home with daughter and her partner, PHYSICAL EXAM: GENERAL: alert and oriented to person in no acute distress on stretcher, how ever not the best historian regarding recent falls and events Head: normocephalic with a healing contusion overlying the left lateral eyebrow. EYES: No injection, discharge or icterus. PERRL NECK: Trachea midline maintained in a cervical hard collar ENT: Mucous membranes pink and moist. Midface is stable. No nasal bridge tenderness. LUNGS: Airway patent. No retractions. Breath sounds clear HEART: Regular rate and rhythm. No chest wall tenderness ABDOMEN: Soft and non-tender, without guarding or rebound. SKIN: Acyanotic, warm, dry, without rashes EXTREMITIES: Without swelling, tenderness or deformity except for a 6 x 4 cm area of healing contusion over the right hip in the area of the greater trochanter. No laceration appreciated. Some chronic skin changes lower legs without significant edema. NEUROLOGICAL: No focal deficits. No aphasia. No facial droop or slurred speech. EK bpm normal sinus rhythm. No PVC or PAC. No acute ST segment elevation noted with some inferior lateral ST flattening. Incomplete left bundle branch block is noted. Compared to previous from March 28 of this year appears similar. CONTINUOUS CARDIAC MONITORING: was ordered and showed a heart rate of 68 bpm in normal sinus rhythm GCS 15. Patient's laboratory studies and imaging reviewed. Differential includes Infection, dehydration, metabolic abnormality, hypo/hyperglycemia, electrolyte disturbance, anemia, hypoxia, cardiac sources, intracerebral event, toxicologic, neurologic, as well as other pathologies. IMPRESSION/MEDICAL DECISION MAKING: Patient presents recently positive coronavirus likely without significant respiratory issues but with some confusion has had several recent falls. Repeat imaging of the head neck was complete especially in light of his history of prior cervical fracture. Is maintained in his hard collar. Basic blood work was obtained. Question if his confusion is from possible Covid infection. Does not appear meningitic. CT the head complete also exclude acute intracranial bleed. No focal deficit acute stroke/CVA. Blood work show some leukopenia as well as some slight elevation of ALT and AST likely related to the viral infection. Benign abdomen. Do not believe we need imaging of the abdomen pelvis. Renal function appears actually somewhat better than baseline. No evidence of thyroid dysfunction. X-ray of the hip without evidence of fracture and there appears to be healing contusion over the right hip as well as over the right eyebrow. Chest x-ray with some bibasilar opacities likely in the setting was coronavirus related to that. No evidence of pneumothorax or focal classic lobar pneumonia. Patient was at home with daughter but they cannot afford significant home care and have concerns about their ability to care for him at home given this. DIAGNOSIS: Confusion, COVID-19, weakness DISPOSITION: Hospitalist will evaluate Patient was agreeable with this plan and did update the patient's daughter via phone. 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 Family History Other Hypertension Social History Smoking Status: Unknown if ever smoked Tobacco Type: Cigarettes Cigarettes Per Day: QUIT MANY MANY YEARS AGO; Hx Alcohol Use: Yes Alcohol type: beer, wine and hard liquor Hx Substance Use: No Preferred Language: Burkinan Communication Ability: Effective Medical Transcription Radiology Required: No Beliefs That Will Affect Care: None Current Living Situation: Family Current Living Situation Comment: DAUGHTER Feels Safe at Home: Yes Assistive Devices: Cane Allergies Allergies Allergy/AdvReac Type Severity Reaction Status Date / Time cefuroxime Allergy Intermediate HIVES ? Verified 04/17/20 23:35 SEE NOTES BELOW Penicillins Allergy Mild HIVES - Verified 04/17/20 23:35 SEE NOTES BELOW Home Meds Home Medications Medication Instructions Recorded Confirmed Myrbetriq 25 mg PO HS 01/29/18 04/17/20 aspirin 81 mg PO DAILY 01/29/18 04/17/20 atorvastatin 80 mg PO QAM 01/29/18 04/17/20 losartan 25 mg PO QPM 01/29/18 04/17/20 pantoprazole 40 mg PO QAM 01/29/18 04/17/20 amlodipine 10 mg PO DAILY 03/28/20 04/17/20 glipizide 10 mg PO DAILY 03/28/20 04/17/20 hydroxyzine HCl 10 mg PO BID PRN 03/28/20 04/17/20 metoprolol tartrate 12.5 mg PO QPM 03/28/20 04/17/20 olanzapine 2.5 mg PO HS 03/28/20 04/17/20 sertraline 100 mg PO QAM 03/28/20 04/17/20 hydroxyzine HCl 25 - 50 mg PO HS PRN 04/17/20 04/17/20 Previous Rx's Medication Instructions Recorded finasteride 5 mg tablet 5 mg PO HS #90 tab 03/19/19 tamsulosin 0.4 mg capsule 0.4 mg PO DAILY #90 cap 04/19/19 umeclidinium 62.5 mcg-vilanterol 1 puffs INH DAILY #60 ea 07/26/19 25 mcg/actuation powdr for inhalation Results & Data (ED) Vital Signs Vital Signs - 24 hr 04/20/20 17:02 04/20/20 17:17 04/20/20 18:22 Temperature 36.9 C Temperature Source Oral Pulse Rate 74 74 73 Pulse Rate from SpO2 Sensor 73 Respiratory Rate 21 20 20 Respiratory Effort / Characteristics Non-Labored Respiratory Depth Normal Blood Pressure 166/79 H 166/79 H 171/102 H Blood Pressure Mean 108 108 125 Pulse Oximetry 98 98 Oxygen Delivery Method Room Air Sepsis Recent Fever Within 48 Hours No Sepsis New/Unexplained Change in Mental Status No Sepsis Action Taken by Nursing No Action Required 04/20/20 18:30 04/20/20 19:00 Temperature Temperature Source Pulse Rate 71 76 Pulse Rate from SpO2 Sensor 71 Respiratory Rate 17 19 Respiratory Effort / Characteristics Respiratory Depth Blood Pressure 165/93 H 156/116 H Blood Pressure Mean 117 129 Pulse Oximetry 97 Oxygen Delivery Method Sepsis Recent Fever Within 48 Hours Sepsis New/Unexplained Change in Mental Status Sepsis Action Taken by Nursing Laboratory Data Result diagrams: 04/20/20 17:30 04/20/20 17:30 Lab Results 04/20/20 04/20/20 04/20/20 Range/Units 17:30 17:30 17:30 WBC 2.81 L (4.8-10.8) K/uL RBC 3.72 L (4.7-6.1) M/uL Hgb 11.3 L (14.0-18.0) g/dL Hct 33.8 L (42-52) % MCV 90.9 (80-100) fL MCH 30.4 (25-34) pg MCHC 33.4 (32-36) g/dL RDW Std Deviation 48.4 H (36.4-46.3) fL RDW Coeff of Leeanna 14.6 H (11.5-14.5) % Plt Count 183 (130-400) K/uL MPV 9.8 (7.4-10.4) fL Immature Gran % (Auto) 0.4 % Neut % (Auto) 58.2 % Lymph % (Auto) 26.0 % Carlton % (Auto) 10.7 % Eos % (Auto) 4.3 % Baso % (Auto) 0.4 % Neut # (Auto) 1.64 (1.4-6.5) K/uL Lymph # (Auto) 0.73 L (1.2-3.4) K/uL Carlton # (Auto) 0.30 (0.11-0.59) K/uL Eos # (Auto) 0.12 (0-0.5) K/uL Baso # (Auto) 0.01 (0-0.2) K/uL Immature Gran # (Auto) 0.01 (0.00-0.02) K/uL PT 10.3 (9.0-12.0) Seconds INR 1.0 (0.9-1.1) Sodium 140 (136-145) mmol/L Potassium 3.6 (3.5-5.1) mmol/L Chloride 105 (98-107) mmol/L Carbon Dioxide 28 (21-32) mmol/L Anion Gap 7.0 (3-11) BUN 20 H (7-18) mg/dl Creatinine 1.51 H (0.6-1.4) mg/dl Est Cr Clr Drug Dosing 36.9 ml/min Est GFR ( Amer) 47.1 Est GFR (Non-Af Amer) 40.7 BUN/Creatinine Ratio 13.5 (10-20) Glucose 136 H (70-99) mg/dl Calcium 8.7 (8.5-10.1) mg/dl Magnesium 2.2 (1.8-2.4) mg/dl Total Bilirubin 0.3 (0.2-1) mg/dl AST 121 H (15-37) U/L ALT 125 H (12-78) U/L Alkaline Phosphatase 115 (45-117) U/L Troponin I < 0.015 (0-0.045) ng/ml Total Protein 6.6 (6.4-8.2) gm/dl Albumin 2.4 L (3.4-5.0) gm/dl Globulin 4.2 H (2.5-4.0) gm/dl Albumin/Globulin Ratio 0.6 L (0.9-2) TSH 1.210 (0.300-4.500) uIu/ml Discharge Plan Visit Data Chief Complaint: Fall Stated Complaint: +COVID/INCREASED CONFUSION/FALLS ED Provider: Dario Casillas Discharge Problem: Confusion, COVID-19, Weakness Patient Disposition: Being Evaluated by Hospitalist Forms Stand Alone Forms: My [facility] Prescriptions Prescriptions: No Action finasteride 5 mg tablet 5 mg PO HS Qty: 90 RF: 3 tamsulosin 0.4 mg capsule 0.4 mg PO DAILY Qty: 90 RF: 1 Anoro Ellipta 62.5-25 mcg/actuation blister with device 1 puffs INH DAILY Qty: 60 RF: 3 glipizide 5 mg tablet 10 mg PO DAILY RF: 0 metoprolol tartrate 25 mg tablet 12.5 mg PO QPM RF: 0 sertraline 100 mg tablet 100 mg PO QAM RF: 0 amlodipine 5 mg tablet 10 mg PO DAILY RF: 0 olanzapine 2.5 mg tablet 2.5 mg PO HS RF: 0 hydroxyzine HCl 10 mg tablet 10 mg PO BID PRN (Reason: Anxiety) RF: 0 hydroxyzine HCl 25 mg tablet 25 - 50 mg PO HS PRN (Reason: Sleep) RF: 0 atorvastatin 80 mg Tablet 80 mg PO QAM RF: 0 aspirin 81 mg Tablet,Delayed Release (Dr/Ec) 81 mg PO DAILY RF: 0 pantoprazole 40 mg Tablet,Delayed Release (Dr/Ec) 40 mg PO QAM RF: 0 losartan 25 mg Tablet 25 mg PO QPM RF: 0 Myrbetriq 25 mg Tablet Extended Release 24 Hr 25 mg PO HS RF: 0 Referrals Referrals: Vinh Montano, [Primary Care Provider] -
[2020-04-20 17:48] LABS: Prothrombin Time 10.3 Seconds (9.0-12.0)
[2020-04-20 17:55] LABS: Alanine Aminotransferase 125 U/L (12-78); Albumin Level 2.4 gm/dl (3.4-5.0); Aspartate Aminotransferase 121 U/L (15-37); BUN Creatinine Ratio 13.5 (10-20); Blood Urea Nitrogen 20 mg/dl (7-18); Calcium 8.7 mg/dl (8.5-10.1); Carbon Dioxide 28 mmol/L (21-32); Chloride 105 mmol/L (98-107); Creatinine Clr Calc Pharmacy 36.9 ml/min; Est GFR (African American) 47.1; Est GFR (Non-African American) 40.7; Glucose 136 mg/dl (70-99); Magnesium 2.2 mg/dl (1.8-2.4); Potassium 3.6 mmol/L (3.5-5.1); Sodium 140 mmol/L (136-145)
[2020-04-20 18:05] LABS: Albumin Globulin Ratio 0.6 (0.9-2); Alkaline Phosphatase 115 U/L (45-117); Bilirubin,Total 0.3 mg/dl (0.2-1); Globulin 4.2 gm/dl (2.5-4.0); Total Protein 6.6 gm/dl (6.4-8.2); Troponin I < 0.015 ng/ml (0-0.045)
--- NOTE | 2020-04-20 18:08 | CT Scan Report ---
CT head/brain wo con CLINICAL HISTORY: fall, confusion COMPARISON STUDY: 04/17/2020 TECHNIQUE: Axial CT of the brain is performed from the vertex to the skull base. IV contrast was not administered for this examination. A dose lowering technique was utilized adhering to the principles of ALARA. CT DOSE: FINDINGS: No intra or extra-axial mass lesions are visualized. There is no CT evidence of acute cortical infarc tion. There is no evidence of midline shift. There is no acute hemorrhage. No calvarial fractures ar e visualized. There are patchy white matter hypodensities likely on a small vessel basis. There is mild ventricular dilatation which is felt to be secondary to volume loss There is chronic opacification of the right maxillary sinus which appears small. The left maxillary s inus also appears small. Chronic changes are also present within the ethmoid and left frontal sinus. IMPRESSION: No acute intracranial findings ACT 112: Negative or not required by law. Electronically signed by: Houston Figueroa M.D. 04/20/2020 6:07 PM
--- NOTE | 2020-04-20 18:15 | CT Scan Report ---
CT OF THE CERVICAL SPINE CLINICAL HISTORY: Neck pain status post trauma COMPARISON STUDY: April 17, 2020 CT DOSE: 1689.96 mGy.cm TECHNIQUE: CT scan of the cervical spine was performed from the skull base to the thoracic inlet. Katyh ges are reviewed in the axial, sagittal, and coronal planes. IV contrast was not administered for thi s examination. A dose lowering technique was utilized adhering to the principles of ALARA. FINDINGS: The visualized portions of the lung apices reveal no evidence of pneumothorax. The prevertebral soft tissues are normal. No acute fractures or traumatic subluxations are visualize d. 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 There is an old right superior C1 facet fracture. T here are healing posterior C1 arch fractures. There are multilevel degenerative changes, with chronic multilevel degenerative subluxations. IMPRESSION: 1. Subacute/chronic posterior C1 arch fractures and a right superior articulating C1 facet fracture 2. 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 No acute fractures or traumatic subluxations identified ACT 112: Negative or not required by law. Electronically signed by: Houston Figueroa M.D. 04/20/2020 6:13 PM
--- NOTE | 2020-04-20 18:42 | XRay Report ---
XR chest 1V portable CLINICAL HISTORY: weakness COMPARISON STUDY: 03/28/2020 FINDINGS: The heart is borderline enlarged. There are postsurgical changes of a midline sternotomy. T here are bibasilar parenchymal opacities, atelectatic versus pneumonia. There is no pneumothorax. Tra ce pleural effusions are suspected IMPRESSION: Bibasilar opacities, multifocal pneumonia versus atelectasis. Clinical and radiographic f ollow-up is recommended. ACT 112: Negative or not required by law. Electronically signed by: Houston Figueroa M.D. 04/20/2020 6:40 PM
--- NOTE | 2020-04-20 18:43 | XRay Report ---
XR hip RT 2V w pelvis CLINICAL HISTORY: Right hip pain status post trauma COMPARISON: 04/17/2020 DISCUSSION: No acute fractures or dislocations are visualized. Surgical clips are visualized in both inguinal regions. There are mild to moderate degenerative changes. IMPRESSION: No acute fractures or dislocations are visualized. ACT 112: Negative or not required by law. Electronically signed by: Houston Figueroa M.D. 04/20/2020 6:41 PM
--- NOTE | 2020-04-20 20:35 | History & Physical Report ---
Date of Service April 20, 2020 Assessment & Plan (1) COVID-19: Patient with Covid-19 diagnosed on 04/17/20 in outpatient setting. Patient with stable respiratory status, no hypoxia. He is leukopenic, lymphopenic, mildly elevated AST/ALT. -Admit to Covid unit, maintain isolation precautions -Monitor oxygenation - patient is not hypoxic, presently 96% on room air. No need for steroids or supplemental O2 at this time -Continue AREDS vitamin and PO Thiamine at home doses -Lovenox 40mg BID Present on Admission?: Yes (2) Chronic kidney disease, stage 4 (severe): BUN=20, Cr=1.51 which is near baseline. Patient with no urinary complaints. -Avoid nephrotoxic agents -Monitor BUN, Cr, electrolytes and UOP Present on Admission?: Yes (3) COPD (chronic obstructive pulmonary disease): Mild dry cough in setting of Covid-19. No SOB, wheeze. -Continue Umeclidinium-vilanterol -Albuterol PRN (4) Diabetes: Chronic. UF=827. Last HgbA1C in July 2019 = 8.5 -Hold oral agents -Lantus 5u BID, ISS, goal blood sugar 100 -150 Present on Admission?: Yes (5) Coronary artery disease: Chronic. Stable. No CP. EKG unchanged -Continue ASA, Atorvastatin, Metoprolol Present on Admission?: Yes (6) Hypertension: Blood pressure mildly elevated -Continue home medications, Metoprolol -Continue to monitor Present on Admission?: Yes (7) BPH (benign prostatic hyperplasia): Chronic. Stable -Continue Finasteride and Tamsulosin -Monitor UOP Present on Admission?: Yes (8) Restless leg syndrome: Chronic. -Continue Myrbetriq F/E/N - [place]ock. Montitor electrolytes. CC/AHA diet as tolerated Ppx - Lovenox 40 BID, Continue home Protonix 40mg daily - patient with history of GERD Code - Full Dispo - Admit to medical Present on Admission?: Yes History of Present Illness Chief Complaint: weakness, falls, recent Covid-19 diagnosis Primary Care Provider: Vinh Montano DO Christian Fields is an 89 year old male with multiple medical comorbidities to include COPD, CKD, HTN, HLP and DM. Patient was recently diagnosed with Covid- 19 in the outpatient setting (per family, he tested positive on 2/5/21). He lives at home with family (daughter) and has had increasing weakness for the last 3-4 days, has fallen several times. Patient also with confusion. He comes in today via ambulance for these complaints. No complaint of fever, chest pain, palpitations or SOB. He has a slight dry cough but otherwise no respiratory complaints. Denies abdominal pain, nausea, vomiting, diarrhea. He has had some constipation which is his usual. He states that his appetite is well. Currently with cervical collar in place since fracturing his c-spine from a fall a month ago. No additional complaints at this time. On arrival patient afebrile, HD stable, NAD. Stable respiratory status with no SOB, cough or hypoxia. Allergies Allergy/AdvReac Type Severity Reaction Status Date / Time cefuroxime Allergy Intermediate Hives Verified 04/20/20 19:51 Penicillins Allergy Mild Hives Verified 04/20/20 19:51 olanzapine AdvReac Unknown Hallucinations, Verified 04/20/20 19:51 confusion and panic Home Medications Medication Instructions Recorded Confirmed Type Myrbetriq 25 mg PO HS 01/29/18 04/20/20 History aspirin 81 mg PO QAM 01/29/18 04/20/20 History atorvastatin 80 mg PO QAM 01/29/18 04/20/20 History pantoprazole 40 mg PO QAM 01/29/18 04/20/20 History finasteride 5 mg tablet 5 mg PO HS #90 tab 03/19/19 04/20/20 Rx glipizide 10 mg PO QAM 03/28/20 04/20/20 History hydroxyzine HCl 10 mg PO DAILY@1600 03/28/20 04/20/20 History metoprolol tartrate 12.5 mg PO HS 03/28/20 04/20/20 History sertraline 100 mg PO QAM 03/28/20 04/20/20 History hydroxyzine HCl 25 mg PO HS 04/17/20 04/20/20 History cyanocobalamin (vitamin B-12) 500 mcg PO QAM 04/20/20 04/20/20 History [Vitamin B-12] tamsulosin 0.4 mg PO HS 04/20/20 04/20/20 History thiamine HCl (vitamin B1) [Vitamin 100 mg PO QAM 04/20/20 04/20/20 History B-1] umeclidinium-vilanterol [Anoro 1 puffs INH QAM 04/20/20 04/20/20 History Ellipta] vitamins A,C,E-qzwd-xrbcya 1 cap PO AMHS 04/20/20 04/20/20 History [PreserVision AREDS] Past Med/Surg History Medical History (Updated 04/20/20 @ 21:08 by Jeannie Simpson DO) Acid reflux CONTROLLED Anxiety and depression BPH (benign prostatic hyperplasia) Chronic kidney disease, stage 4 (severe) History of acute renal failure KIDNEY STONE BLOCKAGE 2 YR AGO/NO PROBLEMS SINCE History of kidney stones Hx of neck injury HX BROKEN NECK, 1 ST AND SECOND VERTEBRAE - 2 YRS AGO Hx of seasonal allergies Hyperlipidemia Hypertension Restless leg syndrome Surgical History Hx of appendectomy Hx of cardiac catheterization BEFORE BYPASS SURGERY/BLOCKAGES Hx of colonoscopy 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 Family History Other Hypertension Social History Smoking Status: Unknown if ever smoked Tobacco Type: Cigarettes Cigarettes Per Day: QUIT MANY MANY YEARS AGO; Hx Alcohol Use: Yes Alcohol type: beer, wine and hard liquor Hx Substance Use: No Preferred Language: Icelandic Communication Ability: Effective 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 Required: No Beliefs That Will Affect Care: None Current Living Situation: Family Current Living Situation Comment: DAUGHTER Feels Safe at Home: Yes Assistive Devices: Cane Review of Systems Review of Systems: All systems reviewed & are unremarkable except as noted in HPI & below Physical Exam Physical Exam: General: patient resting comfortably, hard of hearing, NAD, non-toxic in appearance, AA&O to self and hospital Skin: warm, dry, intact, no rashes or lesions HEENT: NC/AT, PERRL, EOMI, anicteric sclera, conjunctiva without injection, external ear normal to inspection and nontender, nares patent, moist mucus membranes, dentition intact, no oropharyngeal lesions, neck supple, trachea midline, no LAD, no thyromegaly, no JVD Heart: +S1/S2, regular, no m/r/g Lungs: equal air entry bilaterally, no rales/rhonchi/wheezes Abd: +BS, soft, NT/ND, no masses/organomegaly/ascites Ext: warm, 2+ pulses in UE/LE bilaterally, no clubbing/cyanosis or edema Neuro: nonfocal, patient AA&O to self and hospital, speech intact, no facial droop, moving all extremities on command with equal strength 5/5 Results & Data Results & Data ([facility]) Vital Signs (Past 12 Hours) Vital Signs Temp Pulse Resp BP Pulse Ox 04/20/20 19:00 76 19 156/116 H 04/20/20 18:30 71 17 165/93 H 97 04/20/20 18:22 73 20 171/102 H 98 04/20/20 17:17 74 20 166/79 H 04/20/20 17:02 36.9 C 74 21 166/79 H 98 Laboratory Results Lab Results 04/20/20 04/20/20 04/20/20 Range/Units 17:30 17:30 17:30 WBC 2.81 L (4.8-10.8) K/uL RBC 3.72 L (4.7-6.1) M/uL Hgb 11.3 L (14.0-18.0) g/dL Hct 33.8 L (42-52) % MCV 90.9 (80-100) fL MCH 30.4 (25-34) pg MCHC 33.4 (32-36) g/dL RDW Std Deviation 48.4 H (36.4-46.3) fL RDW Coeff of Leeanna 14.6 H (11.5-14.5) % Plt Count 183 (130-400) K/uL MPV 9.8 (7.4-10.4) fL Immature Gran % (Auto) 0.4 % Neut % (Auto) 58.2 % Lymph % (Auto) 26.0 % Morrow % (Auto) 10.7 % Eos % (Auto) 4.3 % Baso % (Auto) 0.4 % Neut # (Auto) 1.64 (1.4-6.5) K/uL Lymph # (Auto) 0.73 L (1.2-3.4) K/uL [place] # (Auto) 0.30 (0.11-0.59) K/uL Eos # (Auto) 0.12 (0-0.5) K/uL Baso # (Auto) 0.01 (0-0.2) K/uL Immature Gran # (Auto) 0.01 (0.00-0.02) K/uL PT 10.3 (9.0-12.0) Seconds INR 1.0 (0.9-1.1) Sodium 140 (136-145) mmol/L Potassium 3.6 (3.5-5.1) mmol/L Chloride 105 (98-107) mmol/L Carbon Dioxide 28 (21-32) mmol/L Anion Gap 7.0 (3-11) BUN 20 H (7-18) mg/dl Creatinine 1.51 H (0.6-1.4) mg/dl Est Cr Clr Drug Dosing 36.9 ml/min Est GFR ( Amer) 47.1 Est GFR (Non-Af Amer) 40.7 BUN/Creatinine Ratio 13.5 (10-20) Glucose 136 H (70-99) mg/dl Calcium 8.7 (8.5-10.1) mg/dl Magnesium 2.2 (1.8-2.4) mg/dl Total Bilirubin 0.3 (0.2-1) mg/dl AST 121 H (15-37) U/L ALT 125 H (12-78) U/L Alkaline Phosphatase 115 (45-117) U/L Troponin I < 0.015 (0-0.045) ng/ml Total Protein 6.6 (6.4-8.2) gm/dl Albumin 2.4 L (3.4-5.0) gm/dl Globulin 4.2 H (2.5-4.0) gm/dl Albumin/Globulin Ratio 0.6 L (0.9-2) TSH 1.210 (0.300-4.500) uIu/ml COVID-19 Eval Order 04/20/20 Range/Units 19:55 WBC (4.8-10.8) K/uL RBC (4.7-6.1) M/uL Hgb (14.0-18.0) g/dL Hct (42-52) % MCV (80-100) fL MCH (25-34) pg MCHC (32-36) g/dL RDW Std Deviation (36.4-46.3) fL RDW Coeff of Leeanna (11.5-14.5) % Plt Count (130-400) K/uL MPV (7.4-10.4) fL Immature Gran % (Auto) % Neut % (Auto) % Lymph % (Auto) % [place]row % (Auto) % Eos % (Auto) % Baso % (Auto) % Neut # (Auto) (1.4-6.5) K/uL Lymph # (Auto) (1.2-3.4) K/uL [place]row # (Auto) (0.11-0.59) K/uL Eos # (Auto) (0-0.5) K/uL Baso # (Auto) (0-0.2) K/uL Immature Gran # (Auto) (0.00-0.02) K/uL PT (9.0-12.0) Seconds INR (0.9-1.1) Sodium (136-145) mmol/L Potassium (3.5-5.1) mmol/L Chloride (98-107) mmol/L Carbon Dioxide (21-32) mmol/L Anion Gap (3-11) BUN (7-18) mg/dl Creatinine (0.6-1.4) mg/dl Est Cr Clr Drug Dosing ml/min Est GFR ( Amer) Est GFR (Non-Af Amer) BUN/Creatinine Ratio (10-20) Glucose (70-99) mg/dl Calcium (8.5-10.1) mg/dl Magnesium (1.8-2.4) mg/dl Total Bilirubin (0.2-1) mg/dl AST (15-37) U/L ALT (12-78) U/L Alkaline Phosphatase (45-117) U/L Troponin I (0-0.045) ng/ml Total Protein (6.4-8.2) gm/dl Albumin (3.4-5.0) gm/dl Globulin (2.5-4.0) gm/dl Albumin/Globulin Ratio (0.9-2) TSH (0.300-4.500) uIu/ml COVID-19 Eval Order [facility]Rsv at [facility] Diagnostic Findings XR hip RT 2V w pelvis CLINICAL HISTORY: Right hip pain status post trauma COMPARISON: 04/17/2020 DISCUSSION: No acute fractures or dislocations are visualized. Surgical clips are visualized in both inguinal regions. There are mild to moderate degenerative changes. IMPRESSION: No acute fractures or dislocations are visualized. ACT 112: Negative or not required by law. Electronically signed by: Houston Figueroa M.D. 04/20/2020 6:41 PM Dictated: 04/20/201840Transcribed: 04/20/201840 CT head/brain wo con CLINICAL HISTORY: fall, confusion COMPARISON STUDY: 04/17/2020 TECHNIQUE: Axial CT of the brain is performed from the vertex to the skull base. IV contrast was not administered for this examination. A dose lowering technique was utilized adhering to the principles of ALARA. CT DOSE: FINDINGS: No intra or extra-axial mass lesions are visualized. There is no CT evidence of acute cortical infarction. There is no evidence of midline shift. There is no acute hemorrhage. No calvarial fractures are visualized. There are patchy white matter hypodensities likely on a small vessel basis. There is mild ventricular dilatation which is felt to be secondary to volume loss There is chronic opacification of the right maxillary sinus which appears small. The left maxillary sinus also appears small. Chronic changes are also present within the ethmoid and left frontal sinus. IMPRESSION: No acute intracranial findings ACT 112: Negative or not required by law. Electronically signed by: Houston Figueroa M.D. 04/20/2020 6:07 PM Dictated: 04/20/201805Transcribed: 04/20/201805 XR chest 1V portable CLINICAL HISTORY: weakness COMPARISON STUDY: 03/28/2020 FINDINGS: The heart is borderline enlarged. There are postsurgical changes of a midline sternotomy. There are bibasilar parenchymal opacities, atelectatic versus pneumonia. There is no pneumothorax. Trace pleural effusions are suspected IMPRESSION: Bibasilar opacities, multifocal pneumonia versus atelectasis. Clinical and radiographic follow-up is recommended. ACT 112: Negative or not required by law. Electronically signed by: Houston Figueroa M.D. 04/20/2020 6:40 PM Dictated: 04/20/201838Transcribed: 04/20/201838 === CT OF THE CERVICAL SPINE CLINICAL HISTORY: Neck pain status post trauma COMPARISON STUDY: April 17, 2020 CT DOSE: 1689.96 mGy.cm TECHNIQUE: CT scan of the cervical spine was performed from the skull base to the thoracic inlet. Images are reviewed in the axial, sagittal, and coronal planes. IV contrast was not administered for this examination. A dose lowering technique was utilized adhering to the principles of ALARA. FINDINGS: The visualized portions of the lung apices reveal no evidence of pneumothorax. The prevertebral soft tissues are normal. No acute fractures or traumatic subluxations are visualized. 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 There is an old right superior C1 facet fracture. There are healing posterior C1 arch fractures. There are multilevel degenerative changes, with chronic multilevel degenerative subluxations. IMPRESSION: 1. Subacute/chronic posterior C1 arch fractures and a right superior articulating C1 facet fracture 2. 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 No acute fractures or traumatic subluxations identified ACT 112: Negative or not required by law. Electronically signed by: Houston Figueroa M.D. 04/20/2020 6:13 PM Dictated: 04/20/201806Transcribed: 04/20/201806 ECG Additional Comments: EKG wtih NSR at 71, normal axis, QR=075, YUQ=963, ROi=563, incomplete LBBB, no actue ischemic changes, no change from prior study from 03/28/20 Code Status & VTE Plan VTE Prophylaxis Plan VTE Prophylaxis will be ordered: Yes PG Care Time/CCT Total # of Minutes Spent Total Time Spent with Patient: Total time spent is greater than 50% in coordination of care (as documented) at patient's floor/unit and/or counseling patient: Coding Level of Care Code 03238 Initial Inpt Care Lvl 3 Diagnoses COVID-19 U07.1 Chronic kidney disease, stage 4 (severe) N18.4 COPD (chronic obstructive pulmonary disease) J44.9 COPD type: unspecified COPD Diabetes E11.9 Diabetes mellitus type: type 2 Diabetes mellitus 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 transplanted heart: [place] heart Associated angina: without angina Hypertension I10 Hypertension type: essential hypertension BPH (benign prostatic hyperplasia) N40.0 Lower urinary tract symptom presence: symptoms absent Restless leg syndrome G25.81 (1) Diabetes Diabetes mellitus type: type 2 Diabetes mellitus care home insulin use: without care home use Diabetes mellitus complication status: without complication Qualified Code(s): E11.9 - Type 2 diabetes mellitus without complications (2) Coronary artery disease Coronary Disease-Associated Artery/Lesion type: [place] artery [place] vs. transplanted heart: [place] heart Associated angina: without angina Qualified Code(s): I25.10 - Atherosclerotic heart disease of [place] coronary artery without angina pectoris (3) COPD (chronic obstructive pulmonary disease) COPD type: unspecified COPD Qualified Code(s): J44.9 - Chronic obstructive pulmonary disease, unspecified (4) Hypertension Hypertension type: essential hypertension Qualified Code(s): I10 - Essential (primary) hypertension (5) BPH (benign prostatic hyperplasia) Lower urinary tract symptom presence: symptoms absent Qualified Code(s): N40.0 - Benign prostatic hyperplasia without lower urinary tract symptoms
[2020-04-20 20:52] LABS: Influenza A virus by PCR Negative (Neg); Influenza B virus by PCR Negative (Neg); RSV by PCR Negative (Neg); SARS CoV2 RNA(COVID-19) InHosp NEGATIVE (Negative)
[2020-04-20] MEDS ORDERED: GLUCAGON FOR INJ 1 MG VIAL SQ PRN (21:19)
[2020-04-20] MEDS ORDERED: DEXTROSE 50% 50 ML SYRINGE IV PRN (21:19)
[2020-04-20] MEDS ORDERED: ACETAMINOPHEN 325 MG TAB PO PRN (21:19)
[2020-04-20] MEDS ORDERED: CARBOHYDRATES FOR HYPOGLYCEMIA PO PRN (21:19)
[2020-04-20] MEDS ORDERED: ONDANSETRON INJ 2 MG/ML 2 ML VIAL IV PRN (21:19)
[2020-04-20] MEDS ORDERED: ALBUTEROL HFA 8 GM INHALER INH PRN (21:19)
[2020-04-20] MEDS ORDERED: GLUCOSE 10 TABS/TUBE PO PRN (21:19)
[2020-04-20] MEDS ORDERED: GLUCOSE 40% GEL 15 GM TUBE PO PRN (21:19)
[2020-04-20 21:50] LABS: Phosphorus 2.6 mg/dl (2.5-4.9)
[2020-04-20] MEDS ORDERED: INFLUENZA ADMINISTRATION CHARGE ONE (22:16)
[2020-04-20] MEDS ORDERED: INFLUENZA VACCINE HIGH DOSE 65+ 0.7 ML SYR IM ONE (22:16)
[2020-04-20] MEDS: hydrOXYzine HCl 25 MG TAB PO SCH (22:38)
[2020-04-20] MEDS: MIRABEGRON ER 25 MG TAB PO SCH (22:38)
[2020-04-20] MEDS: FINASTERIDE 5 MG TAB PO SCH (22:38)
[2020-04-20] MEDS: TAMSULOSIN HCL 0.4 MG CAP PO SCH (22:39)
[2020-04-20] MEDS: METOPROLOL TARTRATE 25 MG TAB PO SCH (22:39)
[2020-04-20] MEDS: ENOXAPARIN INJ 40 MG/0.4 ML SYR SQ SCH (22:39)
[2020-04-20] MEDS: INSULIN GLARGINE SOLOSTAR 100 UNITS/ML 3 ML PEN SC SCH (22:54)
[2020-04-20] MEDS: INSULIN ASPART 100 UNITS/ML 3 ML PEN SC SCH (22:54)
[2020-04-21 01:48] LABS: Appearance Urine Clear (Clear); Bacteria Urine Automated Negative (Negative); Bilirubin Urine Negative (Negative); Blood Urine Negative (Negative); Cast Urine Automated 0 /lpf (0-5); Color Urine Yellow; Glucose Urine UA Negative (Negative); Ketones Urine Negative (Negative); Leukocyte Esterase Urine Negative (Negative); Nitrite Urine Negative (Negative); Protein Urine 1+ (Negative); RBC Urine Automated 0-4 /hpf (0-4); Specific Gravity Urine 1.015 (1.000-1.030); Urobilinogen Urine Negative (Negative); pH Urine 6.5 (4.5-7.5)
[2020-04-21] MEDS: ENOXAPARIN INJ 40 MG/0.4 ML SYR SQ SCH ×2 (07:11→22:30)
[2020-04-21] MEDS: PANTOprazole 40 MG TAB PO SCH (07:11)
[2020-04-21] MEDS: THIAMINE HCL 100 MG TAB PO SCH (07:11)
[2020-04-21] MEDS: SERTRALINE HCL 100 MG TABLET PO SCH (07:11)
[2020-04-21] MEDS: CYANOCOBALAMIN 500 MCG TABLET (VITAMIN B-12) PO SCH (07:11)
[2020-04-21] MEDS: ATORVASTATIN 40 MG TAB PO SCH (07:12)
[2020-04-21] MEDS: UMECLIDINIUM/VILANTEROL 62.5/25MCG 7 PUFFS/INHALER INH SCH (07:12)
[2020-04-21] MEDS: ASPIRIN 81 MG ECTAB PO SCH (07:12)
[2020-04-21 07:39] LABS: Basophils # (auto) 0.02 K/uL (0-0.2); Basophils % (auto) 0.6 %; Eosinophils # (auto) 0.18 K/uL (0-0.5); Eosinophils % (auto) 5.3 %; Hemoglobin 10.6 g/dL (14.0-18.0); Immature Granulocytes # (auto) 0.02 K/uL (0.00-0.02); Immature Granulocytes % (auto) 0.6 %; Lymphocytes % (auto) 26.3 %; Mean Corpuscular Hemoglobin 30.6 pg (25-34); Mean Corpuscular Hgb Conc 34.2 g/dL (32-36); Mean Corpuscular Volume 89.6 fL (80-100); Mean Platelet Volume 10.7 fL (7.4-10.4); Monocytes # (auto) 0.34 K/uL (0.11-0.59); Monocytes % (auto) 9.9 %; Neutrophils # (auto) 1.96 K/uL (1.4-6.5); Neutrophils % (auto) 57.3 %; Platelet Count 201 K/uL (130-400); RDW Coefficient of Variation 14.5 % (11.5-14.5); RDW Standard Deviation 48.1 fL (36.4-46.3); Red Blood Count 3.46 M/uL (4.7-6.1); White Blood Count 3.42 K/uL (4.8-10.8)
[2020-04-21] MEDS: INSULIN ASPART 100 UNITS/ML 3 ML PEN SC SCH ×4 (07:57→22:33)
[2020-04-21] MEDS: INSULIN GLARGINE SOLOSTAR 100 UNITS/ML 3 ML PEN SC SCH ×2 (07:58→22:33)
[2020-04-21 08:07] LABS: Albumin Level 2.2 gm/dl (3.4-5.0); BUN Creatinine Ratio 11.8 (10-20); Calcium 8.9 mg/dl (8.5-10.1); Creatinine Clr Calc Pharmacy 37.5 ml/min; Est GFR (African American) 48.7; Potassium 3.6 mmol/L (3.5-5.1)
[2020-04-21 08:12] LABS: Bilirubin Direct 0.1 mg/dl (0-0.2); Bilirubin,Total 0.4 mg/dl (0.2-1); Total Protein 6.1 gm/dl (6.4-8.2)
--- NOTE | 2020-04-21 09:04 | Electrocardiogram Report ---
Test Reason : Blood Pressure : / mmHG Vent. Rate : 071 BPM Atrial Rate : 071 BPM P-R Int : 156 ms QRS Dur : 110 ms QT Int : 424 ms P-R-T Axes : 045 036 -01 degrees QTc Int : 460 ms Normal sinus rhythm Incomplete left bundle block Diffuse Nonspecific ST abnormality Abnormal ECG When compared with ECG of 28-MAR-2020 08:19, No significant change was found Confirmed by Moy Garza ([id number]) on 04/21/2020 9:04:19 AM Referred By: Vinh Montano Confirmed By:Moy Garza
[2020-04-21] MEDS: hydrOXYzine HCl 10 MG TAB PO SCH (17:05)
--- NOTE | 2020-04-21 21:28 | Hospitalist Progress Note ---
Date of Service April 21, 2020 Assessment & Plan (1) Acute metabolic encephalopathy: Presents with acute change in mental status, worsening confusion and several days of worsening weakness. Likely secondary to Covid-[address] head negative, chemistry panel fairly normal and creatinine is improved from baseline. Vital signs are normal, not hypoxic. No evidence of UTI. Seems much improved today Continue to follow Supportive care for Covid-19 (2) COVID-19: Patient with Covid-19 diagnosed on 04/17/20 in outpatient setting however his Covid-19 test here is negative which is likely a false negative. Patient with stable respiratory status, no hypoxia. He is leukopenic, lymphopenic, mildly elevated AST/ALT. He does have bibasilar opacities on chest x-ray consistent most likely with Covid-19 pneumonia -Admit to Covid unit, maintain isolation precautions -Monitor oxygenation - patient is not hypoxic, presently 96% on room air. No need for steroids or supplemental O2 at this time, no indication for Remdesivir or convalescent plasma either -Continue AREDS vitamin and PO Thiamine at home doses -Lovenox 40mg BID for high risk DVT prophylaxis (3) Chronic kidney disease, stage 4 (severe): BUN=20, Cr=1.51 which is near baseline upon admission and now improved further and creatinine 1.47. Patient with no urinary complaints. -Avoid nephrotoxic agents -Monitor BUN, Cr, electrolytes and UOP (4) COPD (chronic obstructive pulmonary disease): Mild dry cough in setting of Covid-19. No SOB, wheeze. -Continue Umeclidinium-vilanterol -Albuterol PRN (5) Diabetes: Chronic. Blood sugars here fairly well controlled last HgbA1C in July 2019 = 8.5 -Hold oral agents -Lantus 5u BID, tighten down insulin sliding scale correction factor, carb ratio and lower range to 100-140 Check hemoglobin A1c in the morning (6) Fall: With multiple falls recently including suffering a C1 fracture which is healing PT/OT consults placed (7) Cervical spine fracture: With C1 fracture which is healing now on CT scan Maintain hard cervical spine collar Needs outpatient follow-up with spine surgeon (8) Elevated transaminase level: Secondary to Covid-19 infection, no abdominal pain Follow LFTs in the morning (9) BPH (benign prostatic hyperplasia): Chronic. Stable -Continue Finasteride and Tamsulosin -Monitor UOP (10) Hypertension: Blood pressure mildly elevated -Continue home medications, Metoprolol -Continue to monitor (11) Coronary artery disease: Chronic. Stable, with history of CABG. No CP. EKG unchanged -Continue ASA, Atorvastatin, Metoprolol (12) Gastritis and duodenitis: Continue Protonix (13) Anxiety and depression: Continue sertraline (14) DVT prophylaxis: Lovenox 40 twice daily Disposition-continued stay PT/OT consultations May need rehab placement Admission and Anticipated Discharge Date Admission Date: April 20, 2020 Results & Data Results & Data ([facility]) Vital Signs (Past 12 Hours) Vital Signs Temp Pulse Resp BP Pulse Ox 04/21/20 15:01 36.7 C 71 18 163/79 H 97 04/21/20 11:12 36.6 C 79 18 151/63 H 94 PG Care Time/CCT Total # of Minutes Spent Total Time Spent with Patient: Total time spent is greater than 50% in coordination of care (as documented) at patient's floor/unit and/or counseling patient: Coding Level of Care Code 06803 Subseq Hosp Care Lvl 2 Diagnoses Acute metabolic encephalopathy G93.41 COVID-19 U07.1 Chronic kidney disease, stage 4 (severe) N18.4 COPD (chronic obstructive pulmonary disease) J44.9 COPD type: unspecified COPD Diabetes E11.9 Diabetes mellitus type: type 2 Diabetes mellitus 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 transplanted heart: [place] heart Associated angina: without angina Gastritis and duodenitis K29.90 Anxiety and depression F41.9; F32.9 DVT prophylaxis Z29.9 (1) COPD (chronic obstructive pulmonary disease) COPD type: unspecified COPD Qualified Code(s): J44.9 - Chronic obstructive pulmonary disease, unspecified (2) Diabetes Diabetes mellitus type: type 2 Diabetes mellitus long term care phlebotomist insulin use: without long term care phlebotomist use Diabetes mellitus complication status: without complication Qualified Code(s): E11.9 - Type 2 diabetes mellitus without complications (3) Coronary artery disease Coronary Disease-Associated Artery/Lesion type: [place] artery [place] vs. transplanted heart: [place] heart Associated angina: without angina Qualified Code(s): I25.10 - Atherosclerotic heart disease of [place] coronary artery without angina pectoris (4) Hypertension Hypertension type: essential hypertension Qualified Code(s): I10 - Essential (primary) hypertension (5) BPH (benign prostatic hyperplasia) Lower urinary tract symptom presence: symptoms absent Qualified Code(s): N40.0 - Benign prostatic hyperplasia without lower urinary tract symptoms (6) Fall Encounter type: initial encounter Qualified Code(s): W19.XXXA - Unspecified fall, initial encounter
[2020-04-21] MEDS: MIRABEGRON ER 25 MG TAB PO SCH (22:31)
[2020-04-21] MEDS: TAMSULOSIN HCL 0.4 MG CAP PO SCH (22:31)
[2020-04-21] MEDS: METOPROLOL TARTRATE 25 MG TAB PO SCH (22:34)
[2020-04-22] MEDS: hydrOXYzine HCl 25 MG TAB PO SCH ×2 (00:23→21:35)
[2020-04-22] MEDS: FINASTERIDE 5 MG TAB PO SCH ×2 (00:23→21:35)
[2020-04-22] MEDS: PANTOprazole 40 MG TAB PO SCH (08:24)
[2020-04-22] MEDS: ATORVASTATIN 40 MG TAB PO SCH (08:25)
[2020-04-22] MEDS: ASPIRIN 81 MG ECTAB PO SCH (08:25)
[2020-04-22] MEDS: THIAMINE HCL 100 MG TAB PO SCH (08:25)
[2020-04-22] MEDS: SERTRALINE HCL 100 MG TABLET PO SCH (08:25)
[2020-04-22] MEDS: ENOXAPARIN INJ 40 MG/0.4 ML SYR SQ SCH ×2 (08:26→21:36)
[2020-04-22] MEDS: UMECLIDINIUM/VILANTEROL 62.5/25MCG 7 PUFFS/INHALER INH SCH (08:26)
[2020-04-22] MEDS: CYANOCOBALAMIN 500 MCG TABLET (VITAMIN B-12) PO SCH (08:26)
[2020-04-22] MEDS: INSULIN GLARGINE SOLOSTAR 100 UNITS/ML 3 ML PEN SC SCH ×2 (08:43→21:34)
[2020-04-22] MEDS: INSULIN ASPART 100 UNITS/ML 3 ML PEN SC SCH ×4 (08:44→21:34)
[2020-04-22 08:49] LABS: Basophils # (auto) 0.01 K/uL (0-0.2); Basophils % (auto) 0.3 %; Eosinophils # (auto) 0.08 K/uL (0-0.5); Eosinophils % (auto) 2.2 %; Hematocrit (blood only) 31.5 % (42-52); Hemoglobin 10.6 g/dL (14.0-18.0); Immature Granulocytes # (auto) 0.01 K/uL (0.00-0.02); Immature Granulocytes % (auto) 0.3 %; Lymphocytes # (auto) 0.84 K/uL (1.2-3.4); Lymphocytes % (auto) 23.6 %; Mean Corpuscular Hemoglobin 30.5 pg (25-34); Mean Corpuscular Hgb Conc 33.7 g/dL (32-36); Mean Corpuscular Volume 90.8 fL (80-100); Mean Platelet Volume 10.1 fL (7.4-10.4); Monocytes # (auto) 0.33 K/uL (0.11-0.59); Monocytes % (auto) 9.3 %; Neutrophils # (auto) 2.29 K/uL (1.4-6.5); Neutrophils % (auto) 64.3 %; Platelet Count 210 K/uL (130-400); RDW Coefficient of Variation 14.4 % (11.5-14.5); RDW Standard Deviation 48.1 fL (36.4-46.3); Red Blood Count 3.47 M/uL (4.7-6.1); White Blood Count 3.56 K/uL (4.8-10.8)
[2020-04-22 09:22] LABS: Albumin Level 2.2 gm/dl (3.4-5.0); BUN Creatinine Ratio 12.3 (10-20); Creatinine Clr Calc Pharmacy 35.1 ml/min; Est GFR (African American) 44.9; Est GFR (Non-African American) 38.8; Potassium 4.2 mmol/L (3.5-5.1)
[2020-04-22 09:27] LABS: Bilirubin,Total 0.4 mg/dl (0.2-1); Total Protein 6.4 gm/dl (6.4-8.2)
[2020-04-22 10:01] LABS: Estimated Average Glucose 194 mg/dl; Hemoglobin A1C 8.4 % (4.5-5.6)
[2020-04-22 12:59] LABS: Bilirubin Direct 0.2 mg/dl (0-0.2)
[2020-04-22] MEDS: hydrOXYzine HCl 10 MG TAB PO SCH (17:19)
--- NOTE | 2020-04-22 20:07 | Hospitalist Progress Note ---
Date of Service April 22, 2020 Assessment & Plan (1) Acute metabolic encephalopathy: Presents with acute change in mental status, worsening confusion and several days of worsening weakness. Likely secondary to Covid-19 pneumonia Definitely improving, but continues to have waxing and waning moments of delirium. CT head negative, chemistry panel fairly normal and creatinine is improved from baseline. Vital signs are normal, not hypoxic. No evidence of UTI. Continue to follow Supportive care for Covid-19 Redirection, one-to-one sitter for safety as needed (2) COVID-19: Patient with Covid-19 diagnosed on 04/17/20 in outpatient setting however his Covid-19 test here is negative which is likely a false negative. Patient with stable respiratory status, no hypoxia. He is leukopenic, lymphopenic, mildly elevated AST/ALT which are improved from yesterday. He does have bibasilar opacities on chest x-ray consistent most likely with Covid-19 pneumonia -Admit to Covid unit, maintain isolation precautions -Monitor oxygenation - patient is not hypoxic, presently 96% on room air. No need for steroids or supplemental O2 at this time, no indication for Remdesivir or convalescent plasma either -Continue AREDS vitamin and PO Thiamine at home doses -Lovenox 40mg BID for high risk DVT prophylaxis (3) Chronic kidney disease, stage 4 (severe): BUN=20, Cr=1.51 which is near baseline upon admission and remained stable -Avoid nephrotoxic agents -Monitor BUN, Cr, electrolytes and UOP (4) COPD (chronic obstructive pulmonary disease): Mild dry cough in setting of Covid-19. No SOB, wheeze. -Continue Umeclidinium-vilanterol -Albuterol PRN (5) Diabetes: Chronic. Blood sugars here fairly well controlled last HgbA1C in July 2019 = 8.5 -Hold oral agents Glucose here is well controlled -Lantus 5u BID, continue NovoLog sliding scale Hemoglobin A1c elevated here at 8.4% (6) Fall: With multiple falls recently including suffering a C1 fracture which is healing PT/OT consults placed-recommend 24/7 care at home, however patient's family cannot feel safe caring for him like this and requesting rehab placement (7) Cervical spine fracture: With C1 fracture which is healing now on CT scan Maintain hard cervical spine collar Needs outpatient follow-up with spine surgeon, Dr. Bella (8) Elevated transaminase level: Secondary to Covid-19 infection, no abdominal pain, improving Follow LFTs in the morning (9) BPH (benign prostatic hyperplasia): Chronic. Stable -Continue Finasteride and Tamsulosin -Monitor UOP (10) Hypertension: Blood pressure mildly elevated -Continue home medications, Metoprolol -Continue to monitor (11) Coronary artery disease: Chronic. Stable, with history of CABG. No CP. EKG unchanged -Continue ASA, Atorvastatin, Metoprolol (12) Gastritis and duodenitis: Continue Protonix (13) Anxiety and depression: Continue sertraline, hydroxyzine (14) DVT prophylaxis: Lovenox 40 twice daily Disposition-continued stay PT/OT consultations recommend 03/10 care with [facility], however family cannot provide this safely. Requesting referral to rehab-[facility] cannot take him to at least 04/27, however after discussion with daughter on the phone, she is interested in pursuing other SNF choices Admission and Anticipated Discharge Date Admission Date: April 20, 2020 Subjective Patient reports feeling well today, has an occasional single dry cough. He denies any chest pain or nausea or abdominal pain. He is moving his bowels. He is eating well. He is frustrated and upset that he still in the hospital and is not quite accepting of the fact that he needs to go to rehab and wants me to relay this to his daughter, however he is stating that he will go to rehab if his daughter wants him to. Nursing reports that he has been confused at times today. I discussed his care with his daughter on the phone. She reports when she called him earlier he told her he was in [place] and was quite confused. Review of Systems Review of Systems: All systems reviewed & are unremarkable except as noted in HPI & below Denies neck pain or headache Physical Exam Constitutional: WD/WN, vitals as above Eyes: + anicteric sclerae Neck: trachea midline, no thyromegaly Respiratory: normal respiratory effort, lungs clear to auscultation Cardiovascular: RRR, no murmur, no edema Chest (Breasts): Chest: normal inspection of chest Gastrointestinal (Abdomen): normal bowel sounds, soft, nontender, no hepatosplenomegaly Musculoskeletal: Extremities: extremities normal to inspection; no cyanosis and no clubbing Skin: no rashes, warm and dry Neurologic: moves all extremities and awake; no focal motor deficits Psychiatric: Orientation: alert, oriented to person, oriented to place, oriented to time and cooperative Eye Contact: good eye contact Speech: normal rate/rhythm/volume of speech Affect: + depressed affect Thought Process: goal directed thought process Cognition: recent memory grossly intact Estimated Intelligence: + above average estimated intelligence Insight: good insight Lymphatic: no lymphedema Results & Data Results & Data ([facility]) Vital Signs (Past 12 Hours) Vital Signs Temp Pulse Resp BP Pulse Ox 04/22/20 15:10 36.7 C 75 19 157/73 H 96 04/22/20 08:54 36.4 C L 73 20 131/64 94 Laboratory Results 04/22/20 04/22/20 04/22/20 Range/Units 20:09 16:42 11:59 WBC (4.8-10.8) K/uL RBC (4.7-6.1) M/uL Hgb (14.0-18.0) g/dL Hct (42-52) % MCV (80-100) fL MCH (25-34) pg MCHC (32-36) g/dL RDW Std Deviation (36.4-46.3) fL RDW Coeff of Leeanna (11.5-14.5) % Plt Count (130-400) K/uL MPV (7.4-10.4) fL Immature Gran % (Auto) % Neut % (Auto) % Lymph % (Auto) % [place] % (Auto) % Eos % (Auto) % Baso % (Auto) % Neut # (Auto) (1.4-6.5) K/uL Lymph # (Auto) (1.2-3.4) K/uL [place] # (Auto) (0.11-0.59) K/uL Eos # (Auto) (0-0.5) K/uL Baso # (Auto) (0-0.2) K/uL Immature Gran # (Auto) (0.00-0.02) K/uL Sodium (136-145) mmol/L Potassium (3.5-5.1) mmol/L Chloride (98-107) mmol/L Carbon Dioxide (21-32) mmol/L Anion Gap (3-11) BUN (7-18) mg/dl Creatinine (0.6-1.4) mg/dl Est Cr Clr Drug Dosing ml/min Est GFR ( Amer) Est GFR (Non-Af Amer) BUN/Creatinine Ratio (10-20) Glucose (70-99) mg/dl POC Glucose 139 H 160 H 155 H (70-99) mg/dl Estimat Average Glucose mg/dl Hemoglobin A1c (4.5-5.6) % Calcium (8.5-10.1) mg/dl Magnesium (1.8-2.4) mg/dl Total Bilirubin (0.2-1) mg/dl Direct Bilirubin (0-0.2) mg/dl AST (15-37) U/L ALT (12-78) U/L Alkaline Phosphatase (45-117) U/L Total Creatine Kinase (39-308) U/L Total Protein (6.4-8.2) gm/dl Albumin (3.4-5.0) gm/dl 04/22/20 04/22/20 04/22/20 Range/Units 08:30 08:30 08:30 WBC 3.56 L (4.8-10.8) K/uL RBC 3.47 L (4.7-6.1) M/uL Hgb 10.6 L (14.0-18.0) g/dL Hct 31.5 L (42-52) % MCV 90.8 (80-100) fL MCH 30.5 (25-34) pg MCHC 33.7 (32-36) g/dL RDW Std Deviation 48.1 H (36.4-46.3) fL RDW Coeff of Leeanna 14.4 (11.5-14.5) % Plt Count 210 (130-400) K/uL MPV 10.1 (7.4-10.4) fL Immature Gran % (Auto) 0.3 % Neut % (Auto) 64.3 % Lymph % (Auto) 23.6 % [place] % (Auto) 9.3 % Eos % (Auto) 2.2 % Baso % (Auto) 0.3 % Neut # (Auto) 2.29 (1.4-6.5) K/uL Lymph # (Auto) 0.84 L (1.2-3.4) K/uL [place] # (Auto) 0.33 (0.11-0.59) K/uL Eos # (Auto) 0.08 (0-0.5) K/uL Baso # (Auto) 0.01 (0-0.2) K/uL Immature Gran # (Auto) 0.01 (0.00-0.02) K/uL Sodium 139 (136-145) mmol/L Potassium 4.2 D (3.5-5.1) mmol/L Chloride 106 (98-107) mmol/L Carbon Dioxide 27 (21-32) mmol/L Anion Gap 6.0 (3-11) BUN 19 H (7-18) mg/dl Creatinine 1.57 H (0.6-1.4) mg/dl Est Cr Clr Drug Dosing 35.1 ml/min Est GFR ( Amer) 44.9 Est GFR (Non-Af Amer) 38.8 BUN/Creatinine Ratio 12.3 (10-20) Glucose 150 H (70-99) mg/dl POC Glucose (70-99) mg/dl Estimat Average Glucose 194 mg/dl Hemoglobin A1c 8.4 H (4.5-5.6) % Calcium 9.0 (8.5-10.1) mg/dl Magnesium 2.0 (1.8-2.4) mg/dl Total Bilirubin 0.4 (0.2-1) mg/dl Direct Bilirubin 0.2 D (0-0.2) mg/dl AST 52 H (15-37) U/L ALT 81 H (12-78) U/L Alkaline Phosphatase 82 (45-117) U/L Total Creatine Kinase 57 (39-308) U/L Total Protein 6.4 (6.4-8.2) gm/dl Albumin 2.2 L (3.4-5.0) gm/dl 04/22/20 Range/Units 07:17 WBC (4.8-10.8) K/uL RBC (4.7-6.1) M/uL Hgb (14.0-18.0) g/dL Hct (42-52) % MCV (80-100) fL MCH (25-34) pg MCHC (32-36) g/dL RDW Std Deviation (36.4-46.3) fL RDW Coeff of Leeanna (11.5-14.5) % Plt Count (130-400) K/uL MPV (7.4-10.4) fL Immature Gran % (Auto) % Neut % (Auto) % Lymph % (Auto) % [place] % (Auto) % Eos % (Auto) % Baso % (Auto) % Neut # (Auto) (1.4-6.5) K/uL Lymph # (Auto) (1.2-3.4) K/uL [place] # (Auto) (0.11-0.59) K/uL Eos # (Auto) (0-0.5) K/uL Baso # (Auto) (0-0.2) K/uL Immature Gran # (Auto) (0.00-0.02) K/uL Sodium (136-145) mmol/L Potassium (3.5-5.1) mmol/L Chloride (98-107) mmol/L Carbon Dioxide (21-32) mmol/L Anion Gap (3-11) BUN (7-18) mg/dl Creatinine (0.6-1.4) mg/dl Est Cr Clr Drug Dosing ml/min Est GFR ( Amer) Est GFR (Non-Af Amer) BUN/Creatinine Ratio (10-20) Glucose (70-99) mg/dl POC Glucose 150 H (70-99) mg/dl Estimat Average Glucose mg/dl Hemoglobin A1c (4.5-5.6) % Calcium (8.5-10.1) mg/dl Magnesium (1.8-2.4) mg/dl Total Bilirubin (0.2-1) mg/dl Direct Bilirubin (0-0.2) mg/dl AST (15-37) U/L ALT (12-78) U/L Alkaline Phosphatase (45-117) U/L Total Creatine Kinase (39-308) U/L Total Protein (6.4-8.2) gm/dl Albumin (3.4-5.0) gm/dl PG Care Time/CCT Total # of Minutes Spent Total Time Spent with Patient: Total time spent is greater than 50% in coordination of care (as documented) at patient's floor/unit and/or counseling patient: Coding Level of Care Code 49678 Subseq Hosp Care Lvl 2 Diagnoses Acute metabolic encephalopathy G93.41 COVID-19 U07.1 Chronic kidney disease, stage 4 (severe) N18.4 COPD (chronic obstructive pulmonary disease) J44.9 COPD type: unspecified COPD Diabetes E11.9 Diabetes mellitus complication status: without complication Diabetes mellitus residential insulin use: without residential use Diabetes mellitus type: type 2 Fall W19.XXXA Encounter type: initial encounter Cervical spine fracture S12.9XXA Elevated transaminase level R74.01 BPH (benign prostatic hyperplasia) N40.0 Lower urinary tract symptom presence: symptoms absent Hypertension I10 Hypertension type: essential hypertension Coronary artery disease I25.10 Associated angina: without angina Coronary Disease-Associated Artery/Lesion type: bel[place] artery [place] vs. transplanted heart: belkofski heart Gastritis and duodenitis K29.90 Anxiety and depression F41.9; F32.9 DVT prophylaxis Z29.9 (1) BPH (benign prostatic hyperplasia) Lower urinary tract symptom presence: symptoms absent Qualified Code(s): N40.0 - Benign prostatic hyperplasia without lower urinary tract symptoms (2) Diabetes Diabetes mellitus complication status: without complication Diabetes mellitus residential insulin use: without residential use Diabetes mellitus type: type 2 Qualified Code(s): E11.9 - Type 2 diabetes mellitus without complications (3) Coronary artery disease Associated angina: without angina Coronary Disease-Associated Artery/Lesion type: bel[place] artery [place] vs. transplanted heart: belkofski heart Qualified Code(s): I25.10 - Atherosclerotic heart disease of belk[place]ski coronary artery without angina pectoris (4) COPD (chronic obstructive pulmonary disease) COPD type: unspecified COPD Qualified Code(s): J44.9 - Chronic obstructive pulmonary disease, unspecified (5) Hypertension Hypertension type: essential hypertension Qualified Code(s): I10 - Essential (primary) hypertension (6) Fall Encounter type: initial encounter Qualified Code(s): W19.XXXA - Unspecified fall, initial encounter
[2020-04-22] MEDS: TAMSULOSIN HCL 0.4 MG CAP PO SCH (21:35)
[2020-04-22] MEDS: METOPROLOL TARTRATE 25 MG TAB PO SCH (21:35)
[2020-04-22] MEDS: MIRABEGRON ER 25 MG TAB PO SCH (21:35)
[2020-04-23 07:04] LABS: Basophils # (auto) 0.01 K/uL (0-0.2); Basophils % (auto) 0.3 %; Eosinophils # (auto) 0.17 K/uL (0-0.5); Eosinophils % (auto) 4.7 %; Hematocrit (blood only) 31.7 % (42-52); Hemoglobin 10.5 g/dL (14.0-18.0); Immature Granulocytes # (auto) 0.01 K/uL (0.00-0.02); Immature Granulocytes % (auto) 0.3 %; Lymphocytes # (auto) 0.97 K/uL (1.2-3.4); Lymphocytes % (auto) 26.8 %; Mean Corpuscular Hemoglobin 30.3 pg (25-34); Mean Corpuscular Hgb Conc 33.1 g/dL (32-36); Mean Corpuscular Volume 91.4 fL (80-100); Mean Platelet Volume 10.1 fL (7.4-10.4); Monocytes # (auto) 0.47 K/uL (0.11-0.59); Neutrophils # (auto) 1.99 K/uL (1.4-6.5); Neutrophils % (auto) 54.9 %; Platelet Count 236 K/uL (130-400); RDW Coefficient of Variation 14.4 % (11.5-14.5); RDW Standard Deviation 48.5 fL (36.4-46.3); Red Blood Count 3.47 M/uL (4.7-6.1); White Blood Count 3.62 K/uL (4.8-10.8)
[2020-04-23 07:32] LABS: Albumin Level 2.3 gm/dl (3.4-5.0); BUN Creatinine Ratio 12.7 (10-20); Calcium 8.9 mg/dl (8.5-10.1); Creatinine Clr Calc Pharmacy 33.8 ml/min; Est GFR (Non-African American) 37.1; Potassium 4.8 mmol/L (3.5-5.1)
[2020-04-23 07:35] LABS: Albumin Globulin Ratio 0.6 (0.9-2); Bilirubin,Total 0.5 mg/dl (0.2-1); Globulin 4.1 gm/dl (2.5-4.0); Total Protein 6.4 gm/dl (6.4-8.2)
[2020-04-23] MEDS: UMECLIDINIUM/VILANTEROL 62.5/25MCG 7 PUFFS/INHALER INH SCH (09:20)
[2020-04-23] MEDS: ENOXAPARIN INJ 40 MG/0.4 ML SYR SQ SCH ×2 (09:21→21:55)
[2020-04-23] MEDS: ATORVASTATIN 40 MG TAB PO SCH (09:22)
[2020-04-23] MEDS: THIAMINE HCL 100 MG TAB PO SCH (09:22)
[2020-04-23] MEDS: CYANOCOBALAMIN 500 MCG TABLET (VITAMIN B-12) PO SCH (09:22)
[2020-04-23] MEDS: SERTRALINE HCL 100 MG TABLET PO SCH (09:22)
[2020-04-23] MEDS: PANTOprazole 40 MG TAB PO SCH (09:22)
[2020-04-23] MEDS: ASPIRIN 81 MG ECTAB PO SCH (09:22)
[2020-04-23] MEDS: INSULIN ASPART 100 UNITS/ML 3 ML PEN SC SCH ×4 (09:23→22:00)
[2020-04-23] MEDS: INSULIN GLARGINE SOLOSTAR 100 UNITS/ML 3 ML PEN SC SCH ×2 (09:23→22:00)
[2020-04-23] MEDS: DEXAMETHASONE SOD PHOSPHATE 6 MG in SYRINGE 0 ML IV SCH (10:48)
--- NOTE | 2020-04-23 15:21 | Hospitalist Progress Note ---
Date of Service April 23, 2020 Assessment & Plan (1) Acute metabolic encephalopathy: Presents with acute change in mental status, worsening confusion and several days of worsening weakness. Likely secondary to Covid-19 pneumonia Much improved, can probably come off 1:1 sitter today. Got more sleep which may have helped. CT head negative, chemistry panel fairly normal and creatinine is improved from baseline. Vital signs are normal, not hypoxic. No evidence of UTI. Continue to follow Supportive care for Covid-19 Redirection, orienting. Can come off 1:1 (2) COVID-19: Patient with Covid-19 diagnosed on 04/17/20 in outpatient setting however his Covid-19 test here is negative which is likely a false negative. Patient with stable respiratory status, but developing mild hypoxia today at 93% on RA at rest. He is leukopenic, lymphopenic, mildly elevated AST/ALT which are improved from yesterday. He does have bibasilar opacities on chest x-ray consistent most likely with Covid-19 pneumonia With some cough, but laying around a lot, not using IS -encouraged IS -start Decadron 6mg IV qday x 10 day course -maintain isolation precautions -Monitor oxygenation -no indication for Remdesivir or convalescent plasma as very mild case and about 1 week out from symptoms starting -Continue AREDS vitamin and PO Thiamine at home doses -Lovenox 40mg BID for high risk DVT prophylaxis (3) Chronic kidney disease, stage 4 (severe): BUN=20, Cr=1.51 which is near baseline upon admission and has remained stable -Avoid nephrotoxic agents -Monitor BUN, Cr, electrolytes and UOP (4) COPD (chronic obstructive pulmonary disease): Mild dry cough in setting of Covid-19. No SOB, wheeze. -Continue Umeclidinium-vilanterol -Albuterol PRN (5) Diabetes: Chronic. Blood sugars here fairly well controlled last HgbA1C in July 2019 = 8.5 -Hold oral agents Glucose here is well controlled -Lantus 5u BID, continue NovoLog sliding scale Hemoglobin A1c elevated here at 8.4% (6) Fall: With multiple falls recently including suffering a C1 fracture which is healing PT/OT consults placed-recommend 24/7 care at home, however patient's family cannot feel safe caring for him like this and requesting rehab placement (7) Cervical spine fracture: With C1 fracture which is healing now on CT scan Maintain hard cervical spine collar Needs outpatient follow-up with spine surgeon, Dr. Bella (8) Elevated transaminase level: Secondary to Covid-19 infection, no abdominal pain, improving Follow LFTs in the morning (9) BPH (benign prostatic hyperplasia): Chronic. Stable -Continue Finasteride and Tamsulosin -Monitor UOP (10) Hypertension: Blood pressure mildly elevated -Continue home medications, Metoprolol -Continue to monitor (11) Coronary artery disease: Chronic. Stable, with history of CABG. No CP. EKG unchanged -Continue ASA, Atorvastatin, Metoprolol (12) Gastritis and duodenitis: Continue Protonix (13) Anxiety and depression: Continue sertraline, hydroxyzine (14) DVT prophylaxis: Lovenox 40 twice daily Disposition-continued stay but likely can go to rehab tomorrow on po decadron PT/OT consultations recommend 24/7 care with counts include [facility] beds at the [facility], however family cannot provide this safely. Requesting referral to rehab-[facility] cannot take him to at least 04/27, however after discussion with daughter on the phone, she is interested in pursuing other SNF choices--> [facility] can take him tomorrow if off 1:1 Admission and Anticipated Discharge Date Admission Date: April 20, 2020 Subjective Pt reports doing well today. POx overnight and this AM down slightly to 93% and started on dexamethasone. He reports still some cough with deep breaths and has not been using his incentive spirometer. He denies SOB, no CP or abd pain. He is eating. He does feel tired today and reports he slept for a long time last night and took a nap today. Review of Systems Review of Systems: All systems reviewed & are unremarkable except as noted in HPI & below Physical Exam Constitutional: WD/WN, vitals as above Eyes: + anicteric sclerae Neck: trachea midline, no thyromegaly ([place] c-collar in place) Respiratory: normal respiratory effort, lungs clear to auscultation Cardiovascular: RRR, no murmur, no edema Chest (Breasts): Chest: normal inspection of chest Gastrointestinal (Abdomen): normal bowel sounds, soft, nontender, no hepatosplenomegaly Musculoskeletal: Extremities: extremities normal to inspection; no cyanosis and no clubbing Skin: no rashes, warm and dry Neurologic: moves all extremities and awake; no focal motor deficits Psychiatric: Orientation: alert, oriented to person, oriented to place, oriented to time and cooperative Eye Contact: good eye contact Speech: normal rate/rhythm/volume of speech Thought Process: goal directed thought process Cognition: recent memory grossly intact Estimated Intelligence: + above average estimated intelligence Insight: good insight Lymphatic: no lymphedema Results & Data Results & Data ([facility]) Vital Signs (Past 12 Hours) Vital Signs Temp Pulse Resp BP Pulse Ox 04/23/20 15:03 36.8 C 78 18 143/67 H 93 04/23/20 07:00 36.8 C 84 18 152/77 H 93 04/23/20 06:10 93 Laboratory Results 04/23/20 04/23/20 04/23/20 Range/Units 11:33 07:46 06:37 WBC (4.8-10.8) K/uL RBC (4.7-6.1) M/uL Hgb (14.0-18.0) g/dL Hct (42-52) % MCV (80-100) fL MCH (25-34) pg MCHC (32-36) g/dL RDW Std Deviation (36.4-46.3) fL RDW Coeff of Leeanna (11.5-14.5) % Plt Count (130-400) K/uL MPV (7.4-10.4) fL Immature Gran % (Auto) % Neut % (Auto) % Lymph % (Auto) % [place] % (Auto) % Eos % (Auto) % Baso % (Auto) % Neut # (Auto) (1.4-6.5) K/uL Lymph # (Auto) (1.2-3.4) K/uL [place] # (Auto) (0.11-0.59) K/uL Eos # (Auto) (0-0.5) K/uL Baso # (Auto) (0-0.2) K/uL Immature Gran # (Auto) (0.00-0.02) K/uL Sodium 139 (136-145) mmol/L Potassium 4.8 (3.5-5.1) mmol/L Chloride 107 (98-107) mmol/L Carbon Dioxide 28 (21-32) mmol/L Anion Gap 4.0 (3-11) BUN 21 H (7-18) mg/dl Creatinine 1.63 H (0.6-1.4) mg/dl Est Cr Clr Drug Dosing 33.8 ml/min Est GFR ( Amer) 43.0 Est GFR (Non-Af Amer) 37.1 BUN/Creatinine Ratio 12.7 (10-20) Glucose 127 H (70-99) mg/dl POC Glucose 181 H 144 H (70-99) mg/dl Calcium 8.9 (8.5-10.1) mg/dl Total Bilirubin 0.5 (0.2-1) mg/dl AST 59 H (15-37) U/L ALT 75 (12-78) U/L Alkaline Phosphatase 87 (45-117) U/L Total Protein 6.4 (6.4-8.2) gm/dl Albumin 2.3 L (3.4-5.0) gm/dl Globulin 4.1 H (2.5-4.0) gm/dl Albumin/Globulin Ratio 0.6 L (0.9-2) 04/23/20 04/22/20 04/22/20 Range/Units 06:37 20:09 16:42 WBC 3.62 L (4.8-10.8) K/uL RBC 3.47 L (4.7-6.1) M/uL Hgb 10.5 L (14.0-18.0) g/dL Hct 31.7 L (42-52) % MCV 91.4 (80-100) fL MCH 30.3 (25-34) pg MCHC 33.1 (32-36) g/dL RDW Std Deviation 48.5 H (36.4-46.3) fL RDW Coeff of Leeanna 14.4 (11.5-14.5) % Plt Count 236 (130-400) K/uL MPV 10.1 (7.4-10.4) fL Immature Gran % (Auto) 0.3 % Neut % (Auto) 54.9 % Lymph % (Auto) 26.8 % [place] % (Auto) 13.0 % Eos % (Auto) 4.7 % Baso % (Auto) 0.3 % Neut # (Auto) 1.99 (1.4-6.5) K/uL Lymph # (Auto) 0.97 L (1.2-3.4) K/uL [place] # (Auto) 0.47 (0.11-0.59) K/uL Eos # (Auto) 0.17 (0-0.5) K/uL Baso # (Auto) 0.01 (0-0.2) K/uL Immature Gran # (Auto) 0.01 (0.00-0.02) K/uL Sodium (136-145) mmol/L Potassium (3.5-5.1) mmol/L Chloride (98-107) mmol/L Carbon Dioxide (21-32) mmol/L Anion Gap (3-11) BUN (7-18) mg/dl Creatinine (0.6-1.4) mg/dl Est Cr Clr Drug Dosing ml/min Est GFR ( Amer) Est GFR (Non-Af Amer) BUN/Creatinine Ratio (10-20) Glucose (70-99) mg/dl POC Glucose 139 H 160 H (70-99) mg/dl Calcium (8.5-10.1) mg/dl Total Bilirubin (0.2-1) mg/dl AST (15-37) U/L ALT (12-78) U/L Alkaline Phosphatase (45-117) U/L Total Protein (6.4-8.2) gm/dl Albumin (3.4-5.0) gm/dl Globulin (2.5-4.0) gm/dl Albumin/Globulin Ratio (0.9-2) PG Care Time/CCT Total # of Minutes Spent Total Time Spent with Patient: Total time spent is greater than 50% in coordination of care (as documented) at patient's floor/unit and/or counseling patient: Coding Level of Care Code 59088 Subseq Hosp Care Lvl 2 Diagnoses Acute metabolic encephalopathy G93.41 COVID-19 U07.1 Chronic kidney disease, stage 4 (severe) N18.4 COPD (chronic obstructive pulmonary disease) J44.9 COPD type: unspecified COPD Diabetes E11.9 Diabetes mellitus type: type 2 Diabetes mellitus roasterman insulin use: without detention use Diabetes mellitus complication status: without complication Fall W19.XXXA Encounter type: initial encounter Cervical spine fracture S12.9XXA Elevated transaminase level R74.01 BPH (benign prostatic hyperplasia) N40.0 Lower urinary tract symptom presence: symptoms absent Hypertension I10 Hypertension type: essential hypertension Coronary artery disease I25.10 Coronary Disease-Associated Artery/Lesion type: [place] artery [place] vs. transplanted heart: koi heart Associated angina: without angina Gastritis and duodenitis K29.90 Anxiety and depression F41.9; F32.9 DVT prophylaxis Z29.9 (1) COPD (chronic obstructive pulmonary disease) COPD type: unspecified COPD Qualified Code(s): J44.9 - Chronic obstructive pulmonary disease, unspecified (2) Diabetes Diabetes mellitus type: type 2 Diabetes mellitus roasterman insulin use: without roasterman use Diabetes mellitus complication status: without complication Qualified Code(s): E11.9 - Type 2 diabetes mellitus without complications (3) Fall Encounter type: initial encounter Qualified Code(s): W19.XXXA - Unspecified fall, initial encounter (4) BPH (benign prostatic hyperplasia) Lower urinary tract symptom presence: symptoms absent Qualified Code(s): N40.0 - Benign prostatic hyperplasia without lower urinary tract symptoms (5) Hypertension Hypertension type: essential hypertension Qualified Code(s): I10 - Essential (primary) hypertension (6) Coronary artery disease Coronary Disease-Associated Artery/Lesion type: [place] artery [place] vs. transplanted heart: koi heart Associated angina: without angina Qualified Code(s): I25.10 - Atherosclerotic heart disease of koi coronary artery without angina pectoris
[2020-04-23] MEDS: hydrOXYzine HCl 10 MG TAB PO SCH (16:49)
[2020-04-23] MEDS: FINASTERIDE 5 MG TAB PO SCH (21:54)
[2020-04-23] MEDS: METOPROLOL TARTRATE 25 MG TAB PO SCH (21:54)
[2020-04-23] MEDS: TAMSULOSIN HCL 0.4 MG CAP PO SCH (21:55)
[2020-04-23] MEDS: MIRABEGRON ER 25 MG TAB PO SCH (21:55)
[2020-04-23] MEDS: hydrOXYzine HCl 25 MG TAB PO SCH (21:56)
[2020-04-24] MEDS: INSULIN GLARGINE SOLOSTAR 100 UNITS/ML 3 ML PEN SC SCH ×2 (08:21→21:03)
[2020-04-24] MEDS: INSULIN ASPART 100 UNITS/ML 3 ML PEN SC SCH ×4 (08:22→21:03)
[2020-04-24] MEDS: ENOXAPARIN INJ 40 MG/0.4 ML SYR SQ SCH ×2 (08:23→21:17)
[2020-04-24] MEDS: DEXAMETHASONE SOD PHOSPHATE 6 MG in SYRINGE 0 ML IV SCH (08:24)
[2020-04-24] MEDS: ASPIRIN 81 MG ECTAB PO SCH (08:24)
[2020-04-24] MEDS: SERTRALINE HCL 100 MG TABLET PO SCH (08:24)
[2020-04-24] MEDS: UMECLIDINIUM/VILANTEROL 62.5/25MCG 7 PUFFS/INHALER INH SCH (08:24)
[2020-04-24] MEDS: CYANOCOBALAMIN 500 MCG TABLET (VITAMIN B-12) PO SCH (08:24)
[2020-04-24] MEDS: THIAMINE HCL 100 MG TAB PO SCH (08:25)
[2020-04-24] MEDS: PANTOprazole 40 MG TAB PO SCH (08:25)
[2020-04-24] MEDS: ATORVASTATIN 40 MG TAB PO SCH (08:25)
[2020-04-24] MEDS: hydrOXYzine HCl 10 MG TAB PO SCH (16:35)
--- NOTE | 2020-04-24 16:41 | Hospitalist Progress Note ---
Date of Service April 24, 2020 Assessment & Plan (1) Acute metabolic encephalopathy: Presents with acute change in mental status, worsening confusion and several days of worsening weakness. Likely secondary to Covid-19 pneumonia Significantly improved. Off 1:1 sitter since 04/23 CT head negative, chemistry panel fairly normal and creatinine is improved from baseline. Vital signs are normal, not hypoxic. No evidence of UTI. Continue to follow Supportive care for Covid-19 Redirection, orienting. -trial of melatonin for sleep (2) COVID-19: Patient with Covid-19 diagnosed on 04/17/20 in outpatient setting however his Covid-19 test here is negative which is likely a false negative. Patient with stable respiratory status, but developing mild hypoxia on 04/23 at 93% on RA at rest. He is leukopenic, lymphopenic, mildly elevated AST/ALT which are improved He does have bibasilar opacities on chest x-ray consistent most likely with Covid-19 pneumonia With some cough w/ deep inspiration Remains off O2 and POx improved with starting decadron -encouraged IS -continue Decadron 6mg IV qday x 10 day course-last day of tx would be 05/02 -maintain isolation precautions -Monitor oxygenation -no indication for Remdesivir or convalescent plasma as very mild case and about 1 week out from symptoms starting -Continue AREDS vitamin and PO Thiamine at home doses -Lovenox 40mg BID for high risk DVT prophylaxis (3) Chronic kidney disease, stage 4 (severe): BUN=20, Cr=1.51 which is near baseline upon admission and has remained stable -Avoid nephrotoxic agents -Monitor BUN, Cr, electrolytes and UOP (4) COPD (chronic obstructive pulmonary disease): Mild dry cough in setting of Covid-19. No SOB, wheeze. -Continue Umeclidinium-vilanterol -Albuterol PRN (5) Diabetes: Chronic. Blood sugars here fairly well controlled last HgbA1C in July 2019 = 8.5 -Hold oral agents Glucose here is now elevated, hyperglycemia secondary to steroids -increase Lantus to 8u BID, tighten down NovoLog sliding scale with lower CF and CR Hemoglobin A1c elevated here at 8.4% (6) Fall: With multiple falls recently including suffering a C1 fracture which is healing PT/OT consults placed-recommend 24/7 care at home, however patient's family cannot feel safe caring for him like this and requesting rehab placement (7) Cervical spine fracture: With C1 fracture which is healing now on CT scan Maintain hard cervical spine collar Needs outpatient follow-up with spine surgeon, Dr. Bella (8) Elevated transaminase level: Secondary to Covid-19 infection, no abdominal pain, improving Follow LFTs in the morning (9) BPH (benign prostatic hyperplasia): Chronic. Stable -Continue Finasteride and Tamsulosin -Monitor UOP (10) Hypertension: Blood pressure controlled -Continue home medications, Metoprolol -Continue to monitor (11) Coronary artery disease: Chronic. Stable, with history of CABG. No CP. EKG unchanged -Continue ASA, Atorvastatin, Metoprolol (12) Gastritis and duodenitis: Continue Protonix (13) Anxiety and depression: Continue sertraline, hydroxyzine (14) DVT prophylaxis: Lovenox 40 twice daily Disposition-stable medically for discharge but awaiting rehab placement--> cannot be accepted at [facility] or [facility] until at least Monday PT/OT consultations recommend 24/7 care with home health, however family cannot provide this safely. Admission and Anticipated Discharge Date Admission Date: April 20, 2020 Subjective Pt disappointed he is not going to rehab today as they could not accept him. Denies pain or SOB but has a cough with deep inspiration. Not on O2. Is feeling hungry and reports moving his bowels. No issues except feels tired and would like to try melatonin. Review of Systems Review of Systems: All systems reviewed & are unremarkable except as noted in HPI & below Physical Exam Constitutional: WD/WN, vitals as above Eyes: + anicteric sclerae Neck: trachea midline, no thyromegaly ([place] c-collar in place) Respiratory: normal respiratory effort, lungs clear to auscultation Cardiovascular: RRR, no murmur, no edema Chest (Breasts): Chest: normal inspection of chest Gastrointestinal (Abdomen): normal bowel sounds, soft, nontender, no hepatosplenomegaly Musculoskeletal: Extremities: extremities normal to inspection; no cyanosis and no clubbing Skin: no rashes, warm and dry Neurologic: moves all extremities and awake; no focal motor deficits Psychiatric: Orientation: alert, oriented to person, oriented to place, oriented to time and cooperative Eye Contact: good eye contact Speech: normal rate/rhythm/volume of speech Thought Process: goal directed thought process Cognition: recent memory grossly intact Estimated Intelligence: + above average estimated intelligence Insight: good insight Lymphatic: no lymphedema Results & Data Results & Data ([facility]) Vital Signs (Past 12 Hours) Vital Signs Temp Pulse Resp BP Pulse Ox 04/24/20 15:48 36.7 C 75 19 138/57 L 96 04/24/20 11:25 36.5 C 65 18 156/68 H 96 04/24/20 07:25 36.6 C 62 18 158/71 H 95 Laboratory Results 04/24/20 04/24/20 04/24/20 Range/Units 16:30 11:22 07:22 POC Glucose 256 H 259 H 144 H (70-99) mg/dl 04/23/20 Range/Units 21:35 POC Glucose 205 H (70-99) mg/dl PG Care Time/CCT Total # of Minutes Spent Total Time Spent with Patient: Total time spent is greater than 50% in coordination of care (as documented) at patient's floor/unit and/or counseling patient: Coding Level of Care Code 02811 Subseq Hosp Care Lvl 2 Diagnoses Acute metabolic encephalopathy G93.41 COVID-19 U07.1 Chronic kidney disease, stage 4 (severe) N18.4 COPD (chronic obstructive pulmonary disease) J44.9 COPD type: unspecified COPD Diabetes E11.9 Diabetes mellitus complication status: without complication Diabetes mellitus [facility] insulin use: without truck terminal manager use Diabetes mellitus type: type 2 Fall W19.XXXA Encounter type: initial encounter Cervical spine fracture S12.9XXA Elevated transaminase level R74.01 BPH (benign prostatic hyperplasia) N40.0 Lower urinary tract symptom presence: symptoms absent Hypertension I10 Hypertension type: essential hypertension Coronary artery disease I25.10 Associated angina: without angina Coronary Disease-Associated Artery/Lesion type: [place] artery [place] vs. transplanted heart: [place] heart Gastritis and duodenitis K29.90 Anxiety and depression F41.9; F32.9 DVT prophylaxis Z29.9 (1) BPH (benign prostatic hyperplasia) Lower urinary tract symptom presence: symptoms absent Qualified Code(s): N40.0 - Benign prostatic hyperplasia without lower urinary tract symptoms (2) Diabetes Diabetes mellitus complication status: without complication Diabetes mellitus truck terminal manager insulin use: without [facility] use Diabetes mellitus type: type 2 Qualified Code(s): E11.9 - Type 2 diabetes mellitus without complications (3) Coronary artery disease Associated angina: without angina Coronary Disease-Associated Artery/Lesion type: [place] artery [place] vs. transplanted heart: [place] heart Qualified Code(s): I25.10 - Atherosclerotic heart disease of [place] coronary artery without angina pectoris (4) COPD (chronic obstructive pulmonary disease) COPD type: unspecified COPD Qualified Code(s): J44.9 - Chronic obstructive pulmonary disease, unspecified (5) Hypertension Hypertension type: essential hypertension Qualified Code(s): I10 - Essential (primary) hypertension (6) Fall Encounter type: initial encounter Qualified Code(s): W19.XXXA - Unspecified fall, initial encounter
[2020-04-24] MEDS: MELATONIN 3 MG TAB PO SCH (21:16)
[2020-04-24] MEDS: FINASTERIDE 5 MG TAB PO SCH (21:16)
[2020-04-24] MEDS: METOPROLOL TARTRATE 25 MG TAB PO SCH (21:16)
[2020-04-24] MEDS: MIRABEGRON ER 25 MG TAB PO SCH (21:16)
[2020-04-24] MEDS: hydrOXYzine HCl 25 MG TAB PO SCH (21:16)
[2020-04-24] MEDS: TAMSULOSIN HCL 0.4 MG CAP PO SCH (21:16)
[2020-04-25] MEDS: INSULIN ASPART 100 UNITS/ML 3 ML PEN SC SCH ×4 (08:22→21:22)
[2020-04-25] MEDS: INSULIN GLARGINE SOLOSTAR 100 UNITS/ML 3 ML PEN SC SCH ×2 (08:22→21:24)
[2020-04-25] MEDS: DEXAMETHASONE SOD PHOSPHATE 6 MG in SYRINGE 0 ML IV SCH (08:24)
[2020-04-25] MEDS: ATORVASTATIN 40 MG TAB PO SCH (08:24)
[2020-04-25] MEDS: ENOXAPARIN INJ 40 MG/0.4 ML SYR SQ SCH ×2 (08:24→22:28)
[2020-04-25] MEDS: THIAMINE HCL 100 MG TAB PO SCH (08:25)
[2020-04-25] MEDS: UMECLIDINIUM/VILANTEROL 62.5/25MCG 7 PUFFS/INHALER INH SCH (08:25)
[2020-04-25] MEDS: CYANOCOBALAMIN 500 MCG TABLET (VITAMIN B-12) PO SCH (08:25)
[2020-04-25] MEDS: PANTOprazole 40 MG TAB PO SCH (08:25)
[2020-04-25] MEDS: SERTRALINE HCL 100 MG TABLET PO SCH (08:25)
[2020-04-25] MEDS: ASPIRIN 81 MG ECTAB PO SCH (08:26)
[2020-04-25] MEDS: hydrOXYzine HCl 10 MG TAB PO SCH (17:15)
[2020-04-25] MEDS ORDERED: COUGH DROP (SUGAR FREE) LOZ 24 LOZ/1 BOX BUCCAL ONE (19:02)
--- NOTE | 2020-04-25 19:37 | Hospitalist Progress Note ---
Date of Service April 25, 2020 Assessment & Plan (1) Acute metabolic encephalopathy: Presents with acute change in mental status, worsening confusion and several days of worsening weakness. Likely secondary to Covid-19 pneumonia Significantly improved to completely resolved. Off 1:1 sitter since 04/23 CT head negative, chemistry panel fairly normal and creatinine is improved from baseline. Vital signs are normal, not hypoxic. No evidence of UTI. Continue to follow Supportive care for Covid-19 Redirection, orienting. -Continue trial of melatonin for sleep (2) COVID-19: Patient with Covid-19 diagnosed on 04/17/20 in outpatient setting however his Covid-19 test here is negative which is likely a false negative. Patient with stable respiratory status, but developing mild hypoxia on 04/23 at 93% on RA at rest. He is leukopenic, lymphopenic, mildly elevated AST/ALT which are improved He does have bibasilar opacities on chest x-ray consistent most likely with Covid-19 pneumonia With some cough w/ deep inspiration Remains off O2 and POx improved with starting decadron -encouraged IS -continue Decadron 6mg IV qday x 10 day course-last day of tx would be 05/02 -asked nurse to get him cough lozenges -maintain isolation precautions -Monitor oxygenation -no indication for Remdesivir or convalescent plasma as very mild case and about 1 week out from symptoms starting -Continue AREDS vitamin and PO Thiamine at home doses -Lovenox 40mg BID for high risk DVT prophylaxis (3) Chronic kidney disease, stage 4 (severe): BUN=20, Cr=1.51 which is near baseline upon admission and has remained st able -Avoid nephrotoxic agents -Monitor BUN, Cr, electrolytes and UOP (4) COPD (chronic obstructive pulmonary disease): Mild dry cough in setting of Covid-19. No SOB, wheeze. -Continue Umeclidinium-vilanterol -Albuterol PRN (5) Diabetes: Chronic. Blood sugars here now with significant hyperglycemia secondary to steroids Last HgbA1C in July 2019 = 8.5 -Hold oral agents -Continue Lantus to 8u BID, tighten down NovoLog sliding scale again today with lower CF and CR Hemoglobin A1c elevated here at 8.4% (6) Fall: With multiple falls recently including suffering a C1 fracture which is healing PT/OT consults placed-recommend 24/7 care at home, however patient's family cannot feel safe caring for him like this and requesting rehab placement (7) Cervical spine fracture: With C1 fracture which is healing now on CT scan Maintain hard cervical spine collar Needs outpatient follow-up with spine surgeon, Dr. Bella (8) Elevated transaminase level: Secondary to Covid-19 infection, no abdominal pain, improving Follow LFTs in the morning (9) BPH (benign prostatic hyperplasia): Chronic. Stable -Continue Finasteride and Tamsulosin -Monitor UOP (10) Hypertension: Blood pressure controlled -Continue home medications, Metoprolol -Continue to monitor (11) Coronary artery disease: Chronic. Stable, with history of CABG. No CP. EKG unchanged -Continue ASA, Atorvastatin, Metoprolol (12) Gastritis and duodenitis: Previous history of such Continue Protonix (13) Anxiety and depression: Continue sertraline, hydroxyzine (14) DVT prophylaxis: Lovenox 40 twice daily Disposition-stable medically for discharge but awaiting rehab placement--> cannot be accepted at [facility] or [facility] until at least Monday PT/OT consultations recommend 24/7 care with home health, however family cannot provide this safely. Admission and Anticipated Discharge Date Admission Date: April 20, 2020 Subjective Patient reports he still feels tired. He is not sure that the melatonin helped him last night. He reports he had a great sense of anxiety later this afternoon which was relieved after receiving hydroxyzine. He is having a cough every time he tries to take a deep breath. He feels like his cough kind of catches in his throat. He is eating and drinking, no other concerns. Just feels his general sense of weakness. Review of Systems Review of Systems: All systems reviewed & are unremarkable except as noted in HPI & below Physical Exam Constitutional: WD/WN, vitals as above Eyes: + anicteric sclerae Neck: trachea midline, no thyromegaly ([place] c-collar in place) Respiratory: normal respiratory effort, lungs clear to auscultation + cough Cardiovascular: RRR, no murmur, no edema Chest (Breasts): Chest: normal inspection of chest Gastrointestinal (Abdomen): normal bowel sounds, soft, nontender, no hepatosplenomegaly Musculoskeletal: Extremities: extremities normal to inspection; no cyanosis and no clubbing Skin: no rashes, warm and dry Neurologic: moves all extremities and awake; no focal motor deficits Psychiatric: Orientation: alert, oriented to person, oriented to place, oriented to time and cooperative Eye Contact: good eye contact Speech: normal rate/rhythm/volume of speech Lymphatic: no lymphedema Results & Data Results & Data ([facility]) Vital Signs (Past 12 Hours) Vital Signs Temp Pulse Resp BP Pulse Ox 04/25/20 15:17 37.0 C 71 18 144/63 H 95 04/25/20 07:34 36.5 C 64 18 141/66 H 95 Laboratory Results 04/25/20 04/25/20 04/25/20 Range/Units 16:39 11:52 11:51 POC Glucose 167 H 292 H 328 H* (70-99) mg/dl 04/25/20 04/24/20 Range/Units 08:10 20:23 POC Glucose 104 H 189 H (70-99) mg/dl PG Care Time/CCT Total # of Minutes Spent Total Time Spent with Patient: Total time spent is greater than 50% in coordination of care (as documented) at patient's floor/unit and/or counseling patient: Coding Level of Care Code 74195 Subseq Hosp Care Lvl 2 Diagnoses Acute metabolic encephalopathy G93.41 COVID-19 U07.1 Chronic kidney disease, stage 4 (severe) N18.4 COPD (chronic obstructive pulmonary disease) J44.9 COPD type: unspecified COPD Diabetes E11.9 Diabetes mellitus type: type 2 Diabetes mellitus exterminator insulin use: without exterminator use Diabetes mellitus complication status: without complication Fall W19.XXXA Encounter type: initial encounter Cervical spine fracture S12.9XXA Elevated transaminase level R74.01 BPH (benign prostatic hyperplasia) N40.0 Lower urinary tract symptom presence: symptoms absent Hypertension I10 Hypertension type: essential hypertension Coronary artery disease I25.10 Coronary Disease-Associated Artery/Lesion type: [place] artery [place] vs. transplanted heart: [place] heart Associated angina: without angina Gastritis and duodenitis K29.90 Anxiety and depression F41.9; F32.9 DVT prophylaxis Z29.9 (1) COPD (chronic obstructive pulmonary disease) COPD type: unspecified COPD Qualified Code(s): J44.9 - Chronic obstructive pulmonary disease, unspecified (2) Diabetes Diabetes mellitus type: type 2 Diabetes mellitus exterminator insulin use: without residential use Diabetes mellitus complication status: without complication Qualified Code(s): E11.9 - Type 2 diabetes mellitus without complications (3) Fall Encounter type: initial encounter Qualified Code(s): W19.XXXA - Unspecified fall, initial encounter (4) BPH (benign prostatic hyperplasia) Lower urinary tract symptom presence: symptoms absent Qualified Code(s): N40.0 - Benign prostatic hyperplasia without lower urinary tract symptoms (5) Hypertension Hypertension type: essential hypertension Qualified Code(s): I10 - Essential (primary) hypertension (6) Coronary artery disease Coronary Disease-Associated Artery/Lesion type: [place] artery [place] vs. transplanted heart: [place] heart Associated angina: without angina Qualified Code(s): I25.10 - Atherosclerotic heart disease of [place] coronary artery without angina pectoris
[2020-04-25] MEDS ORDERED: INSULIN GLARGINE SOLOSTAR 100 UNITS/ML 3 ML PEN SC SCH (21:00)
[2020-04-25] MEDS: hydrOXYzine HCl 25 MG TAB PO SCH (22:26)
[2020-04-25] MEDS: MELATONIN 3 MG TAB PO SCH (22:26)
[2020-04-25] MEDS: TAMSULOSIN HCL 0.4 MG CAP PO SCH (22:27)
[2020-04-25] MEDS: METOPROLOL TARTRATE 25 MG TAB PO SCH (22:27)
[2020-04-25] MEDS: MIRABEGRON ER 25 MG TAB PO SCH (22:27)
[2020-04-25] MEDS: FINASTERIDE 5 MG TAB PO SCH (22:28)
[2020-04-26 06:13] LABS: Eosinophils # (auto) 0.01 K/uL (0-0.5); Eosinophils % (auto) 0.2 %; Hematocrit (blood only) 31.2 % (42-52); Hemoglobin 10.4 g/dL (14.0-18.0); Immature Granulocytes # (auto) 0.02 K/uL (0.00-0.02); Immature Granulocytes % (auto) 0.4 %; Lymphocytes # (auto) 1.54 K/uL (1.2-3.4); Lymphocytes % (auto) 29.7 %; Mean Corpuscular Hemoglobin 30.5 pg (25-34); Mean Corpuscular Hgb Conc 33.3 g/dL (32-36); Mean Corpuscular Volume 91.5 fL (80-100); Mean Platelet Volume 10.2 fL (7.4-10.4); Monocytes % (auto) 11.6 %; Neutrophils # (auto) 3.01 K/uL (1.4-6.5); Neutrophils % (auto) 58.1 %; Platelet Count 274 K/uL (130-400); RDW Coefficient of Variation 14.5 % (11.5-14.5); RDW Standard Deviation 48.7 fL (36.4-46.3); Red Blood Count 3.41 M/uL (4.7-6.1); White Blood Count 5.18 K/uL (4.8-10.8)
[2020-04-26 06:47] LABS: Albumin Globulin Ratio 0.6 (0.9-2); Albumin Level 2.3 gm/dl (3.4-5.0); BUN Creatinine Ratio 21.7 (10-20); Bilirubin,Total 0.2 mg/dl (0.2-1); Calcium 8.4 mg/dl (8.5-10.1); Creatinine Clr Calc Pharmacy 31.6 ml/min; Est GFR (Non-African American) 36.3; Globulin 3.6 gm/dl (2.5-4.0); Potassium 4.1 mmol/L (3.5-5.1); Total Protein 5.9 gm/dl (6.4-8.2)
[2020-04-26] MEDS: PANTOprazole 40 MG TAB PO SCH (07:24)
[2020-04-26] MEDS: ASPIRIN 81 MG ECTAB PO SCH (07:24)
[2020-04-26] MEDS: THIAMINE HCL 100 MG TAB PO SCH (07:24)
[2020-04-26] MEDS: SERTRALINE HCL 100 MG TABLET PO SCH (07:24)
[2020-04-26] MEDS: DEXAMETHASONE SOD PHOSPHATE 6 MG in SYRINGE 0 ML IV SCH (07:24)
[2020-04-26] MEDS: ATORVASTATIN 40 MG TAB PO SCH (07:24)
[2020-04-26] MEDS: CYANOCOBALAMIN 500 MCG TABLET (VITAMIN B-12) PO SCH (07:24)
[2020-04-26] MEDS: UMECLIDINIUM/VILANTEROL 62.5/25MCG 7 PUFFS/INHALER INH SCH (07:25)
[2020-04-26] MEDS: ENOXAPARIN INJ 40 MG/0.4 ML SYR SQ SCH ×2 (07:25→20:40)
[2020-04-26] MEDS: INSULIN GLARGINE SOLOSTAR 100 UNITS/ML 3 ML PEN SC SCH ×2 (08:35→20:21)
[2020-04-26] MEDS: INSULIN ASPART 100 UNITS/ML 3 ML PEN SC SCH ×4 (08:36→20:21)
[2020-04-26] MEDS: hydrOXYzine HCl 10 MG TAB PO SCH (17:15)
--- NOTE | 2020-04-26 20:06 | Hospitalist Progress Note ---
Date of Service April 26, 2020 Assessment & Plan (1) Acute metabolic encephalopathy: Presents with acute change in mental status, worsening confusion and several days of worsening weakness. Likely secondary to Covid-19 pneumonia Significantly improved to completely resolved. Off 1:1 sitter since 04/23 CT head negative, chemistry panel fairly normal and creatinine is improved from baseline. Vital signs are normal, not hypoxic. No evidence of UTI. Continue to follow Supportive care for Covid-19 Redirection, orienting. -Continue trial of melatonin for sleep (2) COVID-19: Patient with Covid-19 diagnosed on 04/17/20 in outpatient setting however his Covid-19 test here is negative which is likely a false negative. Patient with stable respiratory status, but developing mild hypoxia on 04/23 at 93% on RA at rest. He is leukopenic, lymphopenic, mildly elevated AST/ALT which are improved He does have bibasilar opacities on chest x-ray consistent most likely with Covid-19 pneumonia With some cough w/ deep inspiration Remains off O2 and POx improved with starting decadron -encouraged IS -Albuterol HFA to be used now and as needed -continue Decadron 6mg IV qday x 10 day course-last day of tx would be 05/02 -Continue cough lozenges as needed -maintain isolation precautions -Monitor oxygenation -no indication for Remdesivir or convalescent plasma as very mild case and about 1 week out from symptoms starting -Continue AREDS vitamin and PO Thiamine at home doses -Lovenox 40mg BID for high risk DVT prophylaxis (3) Chronic kidney disease, stage 4 (severe): BUN=20, Cr=1.51 which is near baseline upon admission and has remained stable -Avoid nephrotoxic agents -Monitor BUN, Cr, electrolytes and UOP (4) COPD (chronic obstructive pulmonary disease): Mild dry cough in setting of Covid-19. No SOB, wheeze. -Continue Umeclidinium-vilanterol -Albuterol PRN (5) Diabetes: Chronic. Blood sugars here now with significant hyperglycemia secondary to steroids which is now improved with increasing levels of insulin Last HgbA1C in July 2019 = 8.5 -Hold oral agents -Continue Lantus to 8u BID, continue NovoLog sliding scale Hemoglobin A1c elevated here at 8.4% (6) Fall: With multiple falls recently including suffering a C1 fracture which is healing PT/OT consults placed-recommend 24/7 care at home, however patient's family cannot feel safe caring for him like this and requesting rehab placement (7) Cervical spine fracture: With C1 fracture which is healing now on CT scan Maintain hard cervical spine collar Needs outpatient follow-up with spine surgeon, Dr. Bella (8) Elevated transaminase level: Secondary to Covid-19 infection, no abdominal pain, resolved (9) BPH (benign prostatic hyperplasia): Chronic. Stable -Continue Finasteride and Tamsulosin -Monitor UOP (10) Hypertension: Blood pressure controlled -Continue home medications, Metoprolol -Continue to monitor (11) Coronary artery disease: Chronic. Stable, with history of CABG. No CP. 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 Admission and Anticipated Discharge Date Admission Date: April 20, 2020 Subjective Patient feels well today. Has no complaints. He slept well last night. He still has a mild cough and has not tried albuterol inhaler but will now. No chest pain. Was out of bed to chair. Review of Systems Review of Systems: All systems reviewed & are unremarkable except as noted in HPI & below Physical Exam Constitutional: WD/WN, vitals as above Eyes: + anicteric sclerae Neck: trachea midline, no thyromegaly ([place] c-collar in place) Respiratory: normal respiratory effort, lungs clear to auscultation + cough (Only with deep inspiration) Cardiovascular: RRR, no murmur, no edema Chest (Breasts): Chest: normal inspection of chest Gastrointestinal (Abdomen): normal bowel sounds, soft, nontender, no hepatosplenomegaly Musculoskeletal: Extremities: extremities normal to inspection; no cyanosis and no clubbing Skin: no rashes, warm and dry Neurologic: moves all extremities and awake; no focal motor deficits Psychiatric: Orientation: alert, oriented to person, oriented to place, oriented to time and cooperative Eye Contact: good eye contact Speech: normal rate/rhythm/volume of speech Thought Process: goal directed thought process Cognition: recent memory grossly intact Estimated Intelligence: + above average estimated intelligence Insight: good insight Lymphatic: no lymphedema Results & Data Results & Data ([place]) Vital Signs (Past 12 Hours) Vital Signs Temp Pulse Resp BP Pulse Ox 04/26/20 17:39 72 16 95 04/26/20 15:21 36.5 C 66 21 168/69 H 96 Laboratory Results 04/26/20 04/26/20 04/26/20 Range/Units 16:47 11:19 07:31 WBC (4.8-10.8) K/uL RBC (4.7-6.1) M/uL Hgb (14.0-18.0) g/dL Hct (42-52) % MCV (80-100) fL MCH (25-34) pg MCHC (32-36) g/dL RDW Std Deviation (36.4-46.3) fL RDW Coeff of Leeanna (11.5-14.5) % Plt Count (130-400) K/uL MPV (7.4-10.4) fL Immature Gran % (Auto) % Neut % (Auto) % Lymph % (Auto) % Angelina % (Auto) % Eos % (Auto) % Baso % (Auto) % Neut # (Auto) (1.4-6.5) K/uL Lymph # (Auto) (1.2-3.4) K/uL Angelina # (Auto) (0.11-0.59) K/uL Eos # (Auto) (0-0.5) K/uL Baso # (Auto) (0-0.2) K/uL Immature Gran # (Auto) (0.00-0.02) K/uL Sodium (136-145) mmol/L Potassium (3.5-5.1) mmol/L Chloride (98-107) mmol/L Carbon Dioxide (21-32) mmol/L Anion Gap (3-11) BUN (7-18) mg/dl Creatinine (0.6-1.4) mg/dl Est Cr Clr Drug Dosing ml/min Est GFR ( Amer) Est GFR (Non-Af Amer) BUN/Creatinine Ratio (10-20) Glucose (70-99) mg/dl POC Glucose 155 H 283 H 152 H (70-99) mg/dl Calcium (8.5-10.1) mg/dl Total Bilirubin (0.2-1) mg/dl AST (15-37) U/L ALT (12-78) U/L Alkaline Phosphatase (45-117) U/L Total Protein (6.4-8.2) gm/dl Albumin (3.4-5.0) gm/dl Globulin (2.5-4.0) gm/dl Albumin/Globulin Ratio (0.9-2) 04/26/20 04/26/20 04/25/20 Range/Units 05:27 05:27 20:37 WBC 5.18 (4.8-10.8) K/uL RBC 3.41 L (4.7-6.1) M/uL Hgb 10.4 L (14.0-18.0) g/dL Hct 31.2 L (42-52) % MCV 91.5 (80-100) fL MCH 30.5 (25-34) pg MCHC 33.3 (32-36) g/dL RDW Std Deviation 48.7 H (36.4-46.3) fL RDW Coeff of Leeanna 14.5 (11.5-14.5) % Plt Count 274 (130-400) K/uL MPV 10.2 (7.4-10.4) fL Immature Gran % (Auto) 0.4 % Neut % (Auto) 58.1 % Lymph % (Auto) 29.7 % Angelina % (Auto) 11.6 % Eos % (Auto) 0.2 % Baso % (Auto) 0.0 % Neut # (Auto) 3.01 (1.4-6.5) K/uL Lymph # (Auto) 1.54 (1.2-3.4) K/uL Angelina # (Auto) 0.60 H (0.11-0.59) K/uL Eos # (Auto) 0.01 (0-0.5) K/uL Baso # (Auto) 0.00 (0-0.2) K/uL Immature Gran # (Auto) 0.02 (0.00-0.02) K/uL Sodium 138 (136-145) mmol/L Potassium 4.1 (3.5-5.1) mmol/L Chloride 105 (98-107) mmol/L Carbon Dioxide 26 (21-32) mmol/L Anion Gap 7.0 (3-11) BUN 36 H (7-18) mg/dl Creatinine 1.66 H (0.6-1.4) mg/dl Est Cr Clr Drug Dosing 31.6 ml/min Est GFR ( Amer) 42.0 Est GFR (Non-Af Amer) 36.3 BUN/Creatinine Ratio 21.7 H (10-20) Glucose 132 H (70-99) mg/dl POC Glucose 118 H (70-99) mg/dl Calcium 8.4 L (8.5-10.1) mg/dl Total Bilirubin 0.2 (0.2-1) mg/dl AST 49 H (15-37) U/L ALT 66 (12-78) U/L Alkaline Phosphatase 87 (45-117) U/L Total Protein 5.9 L (6.4-8.2) gm/dl Albumin 2.3 L (3.4-5.0) gm/dl Globulin 3.6 (2.5-4.0) gm/dl Albumin/Globulin Ratio 0.6 L (0.9-2) PG Care Time/CCT Total # of Minutes Spent Total Time Spent with Patient: Total time spent is greater than 50% in coordination of care (as documented) at patient's floor/unit and/or counseling patient: Coding Level of Care Code 21550 Subseq Hosp Care Lvl 2 Diagnoses Acute metabolic encephalopathy G93.41 COVID-19 U07.1 Chronic kidney disease, stage 4 (severe) N18.4 COPD (chronic obstructive pulmonary disease) J44.9 COPD type: unspecified COPD Diabetes E11.9 Diabetes mellitus type: type 2 Diabetes mellitus traffic incident management manager insulin use: without traffic incident management manager use Diabetes mellitus complication status: without complication Fall W19.XXXA Encounter type: initial encounter Cervical spine fracture S12.9XXA Elevated transaminase level R74.01 BPH (benign prostatic hyperplasia) N40.0 Lower urinary tract symptom presence: symptoms absent Hypertension I10 Hypertension type: essential hypertension Coronary artery disease I25.10 Coronary Disease-Associated Artery/Lesion type: [place] artery [place] vs. transplanted heart: [place] heart Associated angina: without angina Gastritis and duodenitis K29.90 Anxiety and depression F41.9; F32.9 Anemia D64.9 DVT prophylaxis Z29.9 (1) COPD (chronic obstructive pulmonary disease) COPD type: unspecified COPD Qualified Code(s): J44.9 - Chronic obstructive pulmonary disease, unspecified (2) Diabetes Diabetes mellitus type: type 2 Diabetes mellitus care home insulin use: without traffic incident management manager use Diabetes mellitus complication status: without complication Qualified Code(s): E11.9 - Type 2 diabetes mellitus without complications (3) Fall Encounter type: initial encounter Qualified Code(s): W19.XXXA - Unspecified fall, initial encounter (4) BPH (benign prostatic hyperplasia) Lower urinary tract symptom presence: symptoms absent Qualified Code(s): N40.0 - Benign prostatic hyperplasia without lower urinary tract symptoms (5) Hypertension Hypertension type: essential hypertension Qualified Code(s): I10 - Essential (primary) hypertension (6) Coronary artery disease Coronary Disease-Associated Artery/Lesion type: [place] artery [place] vs. transplanted heart: [place] heart Associated angina: without angina Qualified Code(s): I25.10 - Atherosclerotic heart disease of [place] coronary artery without angina pectoris
[2020-04-26] MEDS: hydrOXYzine HCl 25 MG TAB PO SCH (20:40)
[2020-04-26] MEDS: MELATONIN 3 MG TAB PO SCH (20:40)
[2020-04-26] MEDS: TAMSULOSIN HCL 0.4 MG CAP PO SCH (20:40)
[2020-04-26] MEDS: MIRABEGRON ER 25 MG TAB PO SCH (20:40)
[2020-04-26] MEDS: FINASTERIDE 5 MG TAB PO SCH (20:40)
[2020-04-26] MEDS: METOPROLOL TARTRATE 25 MG TAB PO SCH (20:41)
[2020-04-27] MEDS: SERTRALINE HCL 100 MG TABLET PO SCH (08:15)
[2020-04-27] MEDS: THIAMINE HCL 100 MG TAB PO SCH (08:15)
[2020-04-27] MEDS: PANTOprazole 40 MG TAB PO SCH (08:15)
[2020-04-27] MEDS: ASPIRIN 81 MG ECTAB PO SCH (08:15)
[2020-04-27] MEDS: ATORVASTATIN 40 MG TAB PO SCH (08:15)
[2020-04-27] MEDS: UMECLIDINIUM/VILANTEROL 62.5/25MCG 7 PUFFS/INHALER INH SCH (08:15)
[2020-04-27] MEDS: CYANOCOBALAMIN 500 MCG TABLET (VITAMIN B-12) PO SCH (08:15)
[2020-04-27] MEDS: ENOXAPARIN INJ 40 MG/0.4 ML SYR SQ SCH (08:16)
[2020-04-27] MEDS: INSULIN ASPART 100 UNITS/ML 3 ML PEN SC SCH ×2 (08:16→12:27)
[2020-04-27] MEDS: INSULIN GLARGINE SOLOSTAR 100 UNITS/ML 3 ML PEN SC SCH (08:17)
[2020-04-27] MEDS: DEXAMETHASONE SOD PHOSPHATE 6 MG in SYRINGE 0 ML IV SCH (10:29)
--- NOTE | 2020-04-27 11:48 | Discharge Summary ---
Date of Service April 27, 2020 Admission HPI Per Admitting Provider Christian Fields is an 89 year old male with multiple medical comorbidities to include COPD, CKD, HTN, HLP and DM. Patient was recently diagnosed with Covid- 19 in the outpatient setting (per family, he tested positive on 04/17/20). He lives at home with family (daughter) and has had increasing weakness for the last 3-4 days, has fallen several times. Patient also with confusion. He comes in today via ambulance for these complaints. No complaint of fever, chest pain, palpitations or SOB. He has a slight dry cough but otherwise no respiratory complaints. Denies abdominal pain, nausea, vomiting, diarrhea. He has had some constipation which is his usual. He states that his appetite is well. Currently with cervical collar in place since fracturing his c-spine from a fall a month ago. No additional complaints at this time. On arrival patient afebrile, HD stable, NAD. Stable respiratory status with no SOB, cough or hypoxia. Principal Diagnosis COVID 19 infection, encephalopathy Discharge Exam Constitutional well developed, well nourished and + frail appearing; no acute distress Neck trachea midline and + limited neck extension Thyroid: normal thyroid Respiratory normal respiratory effort, lungs clear to auscultation Cardiovascular RRR, no murmur, no edema Gastrointestinal (Abdomen) normal bowel sounds, soft, nontender, no hepatosplenomegaly Musculoskeletal Head/Neck/Chest: normocephalic and head atraumatic Spine: + cervical collar present (hard collar) Extremities: extremities normal to inspection and strength 5/5 throughout Skin no rashes, warm and dry Neurologic patellar DTR's 2+ bilat, sensation intact and PERRL, EOMI, accommodation nl, no face palsy, no dysarthria Psychiatric A+Ox3, euthymic affect Lymphatic no cervical or axillary lymphadenopathy Discharge Data Allergies Allergy/AdvReac Type Severity Reaction Status Date / Time cefuroxime Allergy Intermediate Hives Verified 04/20/20 19:51 Penicillins Allergy Mild Hives Verified 04/20/20 19:51 olanzapine AdvReac Unknown Hallucinations, Verified 04/20/20 19:51 confusion and panic Consultations 04/20/20 19:05 ED Decision to Admit Stat 04/21/20 09:16 Consult Case Management - Discharge Planning Routine 04/22/20 20:06 Consult Case Management - Discharge Planning Routine Ordered Studies 04/20/20 17:20 CT cervical spine wo con Stat CT head/brain wo con Stat Hospital Course (1) Acute metabolic encephalopathy: Presents with acute change in mental status, worsening confusion and several days of worsening weakness. Likely secondary to Covid-19 pneumonia Significantly improved to completely resolved. Off 1:1 sitter since 04/23 CT head negative, chemistry panel fairly normal and creatinine is improved from baseline. Vital signs are normal, not hypoxic. No evidence of UTI. (2) COVID-19: Patient with Covid-19 diagnosed on 04/17/20 in outpatient setting however his Covid-19 test here is negative which is likely a false negative. Patient with stable respiratory status, but developing mild hypoxia on 04/23 at 93% on RA at rest. He is leukopenic, lymphopenic, mildly elevated AST/ALT which are improved He does have bibasilar opacities on chest x-ray consistent most likely with Covid-19 pneumonia - treated with dexamethasone but this can be stopped as he is no longer hypoxemic -Lovenox 40mg BID for high risk DVT prophylaxis (3) Chronic kidney disease, stage 4 (severe): BUN=20, Cr=1.51 which is near baseline upon admission and has remained stable -Avoid nephrotoxic agents (4) COPD (chronic obstructive pulmonary disease): Mild dry cough in setting of Covid-19. No SOB, wheeze. -Continue Umeclidinium-vilanterol -Albuterol PRN (5) Diabetes: Chronic. Blood sugars here now with significant hyperglycemia secondary to steroids which is now improved with increasing levels of insulin Last HgbA1C in July 2019 = 8.5 -Hold oral agents -treated with Lantus 8u BID, continue NovoLog sliding scale Hemoglobin A1c elevated here at 8.4% (6) Fall: With multiple falls recently including suffering a C1 fracture which is healing PT/OT consults placed-recommend 24/7 care at home, however patient's family cannot feel safe caring for him like this and requesting rehab placement (7) Cervical spine fracture: With C1 fracture which is healing now on CT scan Maintain hard cervical spine collar Needs outpatient follow-up with spine surgeon, Dr. Bella (8) Elevated transaminase level: Secondary to Covid-19 infection, no abdominal pain, resolved (9) BPH (benign prostatic hyperplasia): Chronic. Stable -Continue Finasteride and Tamsulosin -Monitor UOP (10) Hypertension: Blood pressure controlled -Continue home medications, Metoprolol -Continue to monitor (11) Coronary artery disease: Chronic. Stable, with history of CABG. No CP. 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 Bella, spine surgery Activity: Per Instructions section Lifting: No more than 5 pounds Bathing: No limitations Exercise/Sports: Gradually increase as tolerated Weightbearing: Full weightbearing Non-emergency contact: Primary Care Provider and Surgeon Call non-emergency contact if: you have any medication questions and your symptoms worsen Follow-up/Referrals: Donavan Bella DO [Surgeon] - (2 weeks for C1 fracture) Vinh Montano DO [Primary Care Provider] - 04/24/20 10:10 am (please re- schedule for 2 weeks from discharge as he will go to [facility]) Diet: Carb Consistent or DM2 Addtl Attending Provider Instructions: Medications: - MELATONIN: continue 3mg at bedtime for sleep aide COVID 19 infection: diagnosed 04/17/20 in outpatient setting, never had hypoxia, no treatment with dexamethasone required, now 10 days out from diagnosis Weakness, falls, C1 fracture maintain hard collar at all times, should follow up with Dr. Jama Bella in two weeks continue therapy at rehab unsafe to go home at this time as he is requiring 24/7 help Pending Studies at Discharge: No Stand-Alone Forms: [facility] Skilled Items Patient informed of condition?: Yes DNR: No Discharge Level of Care: Acute rehab Communicable Disease: No Discharge Prognosis: Stable Lines: None Urinary Catheter: No Medications and DC Order Prescriptions: New melatonin 3 mg Tablet 3 mg PO HS 30 Days Qty: 30 RF: 0 Continued finasteride 5 mg tablet 5 mg PO HS Qty: 90 RF: 3 glipizide 5 mg tablet 10 mg PO QAM RF: 0 metoprolol tartrate 25 mg tablet 12.5 mg PO HS RF: 0 sertraline 100 mg tablet 100 mg PO QAM RF: 0 hydroxyzine HCl 10 mg tablet 10 mg PO DAILY@1600 RF: 0 hydroxyzine HCl 25 mg tablet 25 mg PO HS RF: 0 tamsulosin 0.4 mg capsule 0.4 mg PO HS RF: 0 Anoro Ellipta 62.5-25 mcg/actuation blister with device 1 puffs INH QAM RF: 0 thiamine HCl (vitamin B1) [Vitamin B-1] 100 mg Tablet 100 mg PO QAM RF: 0 cyanocobalamin (vitamin B-12) [Vitamin B-12] 500 mcg Tablet 500 mcg PO QAM RF: 0 PreserVision AREDS [id number] Capsule 1 cap PO AMHS RF: 0 atorvastatin 80 mg Tablet 80 mg PO QAM RF: 0 aspirin 81 mg Tablet,Delayed Release (Dr/Ec) 81 mg PO QAM RF: 0 pantoprazole 40 mg Tablet,Delayed Release (Dr/Ec) 40 mg PO QAM RF: 0 Myrbetriq 25 mg Tablet Extended Release 24 Hr 25 mg PO HS RF: 0 Discharge Orders: Discharge Order (Routine); Ordered 04/27/20 Ordered By: Ag Cui/Other Patient Handouts: High Blood Sugar (Hyperglycemia), Hypoglycemia (Low Blood Sugar), Managing Type 2 Diabetes Admission Data Admit Date/Time: 04/20/20 20:05 Attending Provider: Ag Payne Admit Provider: Jeannie Simpson Primary Care Provider: Vinh Montano Other Providers: Jeannie Simpson ; [facility] ; [facility] ; [facility] Other Interventions: Discharge Summary Assessment (RN) Last Done: 04/27/20 13:14 Coding Level of Care Code D/C Day Management >30 mins Diagnoses Acute metabolic encephalopathy G93.41 COVID-19 U07.1 Chronic kidney disease, stage 4 (severe) N18.4 COPD (chronic obstructive pulmonary disease) J44.9 COPD type: unspecified COPD Diabetes E11.9 Diabetes mellitus complication status: without complication Diabetes mellitus intermission coordinator insulin use: without nursing home use Diabetes mellitus type: type 2 Fall W19.XXXA Encounter type: initial encounter Cervical spine fracture S12.9XXA Elevated transaminase level R74.01 BPH (benign prostatic hyperplasia) N40.0 Lower urinary tract symptom presence: symptoms absent Hypertension I10 Hypertension type: essential hypertension Coronary artery disease I25.10 Associated angina: without angina Coronary Disease-Associated Artery/Lesion type: [place] artery [place] vs. transplanted heart: [place] heart Gastritis and duodenitis K29.90 Anxiety and depression F41.9; F32.9 Anemia D64.9 DVT prophylaxis Z29.9
== END 2020-04-27 15:09 | DRG 177 ==
LOC: ED 17:08 → 2W 20:05 → SUATTDRO 20:05 → 2W 20:42 → 2E 04-23 18:07

== ENCOUNTER 2020-07-23 20:49 | Inpatient (IN) ==
--- NOTE | 2020-07-23 21:48 | Emergency Department Note ---
Impression & Plan Fall, ABLA (acute blood loss anemia), Laceration of forehead without complication, Non-ST elevation UT (NSTEMI), Thrombocytopenia, Contusion of left chest wall ED Provider Note Provider: Dario Casillas MD DATE OF SERVICE: 07/23/2020 CHIEF COMPLAINT: Fall HISTORY OF PRESENT ILLNESS: Patient is a 89-year-old gentleman past medical history including CKD, BPH, COVID-19 earlier this year, cervical spine fracture in the past, hypertension presenting here today with daughter after a fall. Patient states he tripped on his sneakers and struck his head on a glass he was carrying. Denies loss of conscious. Had a cut to the left forehead he reports. Denies other significant injury today but states 2 to 3 days ago he fell between the toilet and while in his bathroom and injured his left chest and abdomen. Daughter states she is just finding out about this now and he did not initially tell her. Patient reports pain, tenderness, and bruising over the left chest and left abdomen. States has been eating and drinking okay denies any shortness of breath. Denies any new numbness or weakness in the lower extremities. REVIEW OF SYSTEMS: A total of 10 review of systems was obtained and negative except as stated above in the HPI. PAST MEDICAL HISTORY: As noted above MEDICATIONS: Reviewed patient's home medications which include aspirin per the report. SOCIAL HISTORY: distant former smoker PHYSICAL EXAM: GENERAL: alert and oriented in no acute distress on stretcher with bandaging to the forehead, patient hard of hearing Head: normocephalic with a 2 cm left forehead slight laceration with approximately 3 cm of surrounding contusion. No significant findings consistent with foreign body noted. EYES: No injection, discharge or icterus. PERRL, EOMI. NECK: Trachea midline. Supple no significant posterior midline tenderness. ENT: Mucous membranes pink and moist. LUNGS: Airway patent. No retractions. Breath sounds clear with good air entry bilaterally. HEART: Regular rate and rhythm. Some left-sided chest wall tenderness with contusion noted. No crepitus ABDOMEN: Soft with some contusion partially healed over the left abdomen with some tenderness there. No peritonitis. No right-sided or mid abdominal tenderness. With nurse cutter machine, Hemoccult negative without melanotic stools SKIN: Acyanotic, warm, dry, with a few scattered petechiae on the extremities. EXTREMITIES: Without swelling, tenderness or deformity except for small abrasion left goldstein without active bleeding or evidence of foreign body. A few scattered petechiae are noted in lower extremities. NEUROLOGICAL: No focal deficits. No aphasia. No facial droop or slurred speech. Normal strength and tone in the extremities. Sensation to gross touch normal. EK bpm normal sinus rhythm. No PVC or PAC. No acute ST segment elevation noted with some unchanged T wave inversions slight ST flattening inferiorly with some new T wave inversions and ST flattening laterally today. This is in comparison to previous available from April 30 of this year. CONTINUOUS CARDIAC MONITORING: was ordered and showed a heart rate of 70s to 80s bpm in normal sinus rhythm GCS 15. LACERATION REPAIR: Left forehead laceration performed by myself Patient, procedure, and site were verified immediately before the procedure. Appropriate neurovascular exam was performed to test sensation, motor function and perfusion. The skin around the wound was prepped with chlorhexidine Wound was irrigated with a copious amount of saline. Wound was explored to its base. There was no visible foreign body in the wound. The laceration was repaired by means of a single layer closure. Skin was closed with tissue adhesive. Total wound length was 2 cm. Good hemostasis and cosmetic result. Patient tolerated the procedure well. Patient's laboratory studies and imaging reviewed. Differential includes Fracture, dislocation, contusion, intra-abdominal, pneumothorax, intrathoracic, intracranial, neurologic, compartment syndrome, rhabdomyolysis, as well as other pathologies. IMPRESSION/MEDICAL DECISION MAKING: Patient presents after a fall today has had multiple recent falls. Denies these are true syncopal episodes denies LOC. Given his aspirin usually is, age/comorbidities, and contusion on the left chest wall/abdomen from fall several days ago a CT of the head, cervical spine, chest abdomen pelvis were completed. EKG and basic labs were obtained. Patient not hypotensive or tachycardic here. Blood work returns with anemia of 6.7 and a thrombocytopenia of 76. Anemia appears new drop of 4 points. White blood cell counts leukopenia 3.5 appears stable. Renal function so CKD 1.67 creatinine. Mild hypomagnesemia of 1.7 noted. Patient denies any bloody or black stools. Reports distant history of GI bleed many decades ago which she did receive a transfusion for. Patient will be consented for blood and 1 unit transfusion ordered. EKG with some lateral ST and T wave changes but no acute STEMI. Patient reports some chest wall tenderness but otherwise denies significant chest pain. Troponin is noted to be elevated today at 0.14. Patient has been on aspirin but will avoid additional antiplatelets given the thrombocytopenia and anemia today. Will not additionally anticoagulate this time given the recent trauma and anemia. CT the head as below per radiology without acute intracranial abnormality. CT of the chest per radiology below without significant acute traumatic injury noted. CT of the cervical spine per radiology as below without significant acute traumatic injury although chronic nonunion of prior cervical injury is noted. CT the abdomen pelvis per radiology as below without significant acute traumatic injury noted or free fluid. Hemoccult negative here and lower suspicion for GI bleed. Given EKG and troponin findings with the anemia, he is again being transfused but feel further observation here in the hospital is warranted. The patient and daughter were updated. UA questions infection and sent for culture; will defer treatment to the hospitalist who was contacted. DIAGNOSIS: Fall, forehead laceration, left-sided chest wall and abdominal contusion, NSTEMI, acute blood loss anemia, thrombocytopenia DISPOSITION: Hospitalist will evaluate Patient and daughter were agreeable with this plan. Critical Care I have personally spent 38 minutes of critical care time in the direct management of this patient. This includes bedside care, interpretation of diagnostic studies, and testing, discussion with consultants, patient, and family members, and other required patient management activities. These 38 minutes is in excess of all separately billable procedures. Preliminary Findings Only See Final Report For Complete Findings CT HEAD: Direct comparison made with prior study from April 20, 2020. There is no intracranial mass or bleed. Ventricles, cisterns and sulci are prominent suggesting chronic senescent changes which are stable relative to the prior study. There is a left frontal scalp hematoma without calvarial fracture. Impression: Scalp hematoma with no calvarial fracture or intracranial bleed Radiologist: Adria Wakefield MD Study ready at 00:39 and initial results transmitted at 00:52 Preliminary Findings Only See Final Report For Complete Findings CT CHEST Without Contrast: Heart is normal in size. There are atherosclerotic changes in the coronary arteries. There are moderate atherosclerotic changes in the thoracic aorta. Thoracic esophagus appears normal. Mediastinal lymph nodes are not enlarged. Central airways appear normal. There is no airspace consolidation. There is no pneumothorax or pleural fluid collection. There is been a previous midline sternotomy. There is no acute skeletal fracture. Impression: No acute findings Radiologist: Adria Wakefield MD Study ready at 00:39 and initial results transmitted at 00:56 Preliminary Findings Only See Final Report For Complete Findings CT C SPINE: Direct comparison is made with prior study from April 20, 2020. There is chronic nonunion of the dens with a lucent defect passing axially through the dens at the level the inferior margin of C1. There is no displacement. The configuration is stable relative to the previous study. There are degenerative changes with intervertebral disc space narrowing at multiple levels. This is stable relative to the prior study. 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 This may be related to previous trauma, or congenital defect Radiologist: Adria Wakefield MD Study ready at 00:40 and initial results transmitted at 01:00 Preliminary Findings Only See Final Report For Complete Findings CT ABDOMEN & PELVIS Without Contrast: Direct comparison made to prior study of August 31, 2019. The liver, spleen, pancreas appear normal. Gallbladder is surgically absent. Small bowel, colon appear normal the appendix is not visualized. There are bilateral nonobstructing calyceal renal stones. Bladder is mildly thickened but incompletely distended. Prostate is mildly prominent measuring 5.4 x 3.8 cm. There are moderate atherosclerotic changes in the abdominal aorta. There is no free peritoneal air or fluid. Compression fracture deformity of the superior endplate of L1 is stable from prior study. 3 mm anterior subluxation of the inferior endplate of L4 relative to the superior endplate of L5 is stable. Impression: No acute findings. No solid organ injury or free pelvic fluid. Nephrolithiasis. Old compression fracture at L1 Radiologist: Adria Wakefield MD Study ready at 00:46 and initial results transmitted at 01:06 Past Med/Surg History Medical History (Updated 07/24/20 @ 02:13 by Dario Casillas M.D.) Acid reflux CONTROLLED Anxiety and depression BPH (benign prostatic hyperplasia) Cervical spine fracture Chronic kidney disease, stage 4 (severe) Confusion COVID-19 Fall Gastritis and duodenitis History of acute renal failure KIDNEY STONE BLOCKAGE 2 YR AGO/NO PROBLEMS SINCE History of kidney stones Hx of neck injury HX BROKEN NECK, 1 ST AND SECOND VERTEBRAE - 2 YRS AGO Hx of seasonal allergies Hyperlipidemia Hypertension Restless leg syndrome Weakness Surgical History Hx of appendectomy Hx of cardiac catheterization BEFORE BYPASS SURGERY/BLOCKAGES Hx of colonoscopy 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 Family History Other Hypertension Social History Smoking Status: Former smoker Tobacco Type: Cigarettes Cigarettes Per Day: QUIT MANY MANY YEARS AGO; Second Hand Exposure: No; Hx Alcohol Use: No Hx Substance Use: No Preferred Language: Pry[place]in[place] Communication Ability: Effective Early Morning Babysitter Required: No Beliefs That Will Affect Care: None marital status: Current Living Situation: Family Current Living Situation Comment: DAUGHTER Feels Safe at Home: Yes Assistive Devices: None Allergies Allergies Allergy/AdvReac Type Severity Reaction Status Date / Time cefuroxime Allergy Intermediate Hives Verified 07/23/20 21:54 Penicillins Allergy Mild Hives Verified 07/23/20 21:54 olanzapine AdvReac Unknown Hallucinations, Verified 07/23/20 21:54 confusion and panic Home Meds Home Medications Medication Instructions Recorded Confirmed Myrbetriq 25 mg PO HS 01/29/18 07/23/20 aspirin 81 mg PO QAM 01/29/18 07/23/20 atorvastatin 80 mg PO QAM 01/29/18 07/23/20 pantoprazole 40 mg PO QAM 01/29/18 07/23/20 glipizide 10 mg PO QAM 03/28/20 07/23/20 hydroxyzine HCl 10 mg PO DAILY@1600 03/28/20 07/23/20 sertraline 100 mg PO QAM 03/28/20 07/23/20 hydroxyzine HCl 25 mg PO HS 04/17/20 07/23/20 Anoro Ellipta 1 puffs INH QAM 04/20/20 07/23/20 PreserVision AREDS 1 cap PO AMHS 04/20/20 07/23/20 cyanocobalamin (vitamin B-12) 500 mcg PO QAM 04/20/20 07/23/20 [Vitamin B-12] tamsulosin 0.4 mg PO HS 04/20/20 07/23/20 thiamine HCl (vitamin B1) [Vitamin 100 mg PO QAM 04/20/20 07/23/20 B-1] metoprolol succinate 12.5 mg PO HS 07/23/20 07/23/20 quetiapine 25 mg PO HS 07/23/20 07/23/20 Previous Rx's Medication Instructions Recorded finasteride 5 mg tablet 5 mg PO HS #90 tab 03/19/19 Results & Data (ED) Vital Signs Vital Signs - 24 hr 07/23/20 21:08 07/23/20 22:39 07/24/20 00:40 Temperature 36.8 C 37.4 C Temperature Source Temporal Artery Scan Oral Pulse Rate 76 82 81 Pulse Rate [Apical] 82 Pulse Rhythm Regular Regular Regular Pulse Rhythm [Apical] Regular Pulse Strength Normal Normal Pulse Strength [Apical] Normal Respiratory Rate 20 18 18 Respiratory Effort / Characteristics Non-Labored Spontaneous Non-Labored Respiratory Depth Normal Normal Respiratory Pattern Regular Blood Pressure 127/48 L Blood Pressure [Left Arm] 115/52 L Blood Pressure Mean 74 Blood Pressure Mean [Left Arm] 73 Blood Pressure Position Sitting Blood Pressure Position [Left Arm] Sitting Pulse Oximetry 100 99 97 Oxygen Delivery Method Room Air Room Air Oxymask Sepsis Recent Fever Within 48 Hours No Sepsis New/Unexplained Change in Mental Status No Sepsis Action Taken by Nursing No Action Required 07/24/20 00:57 07/24/20 01:00 07/24/20 01:15 Temperature 37.6 C H 36.9 C Temperature Source Oral Oral Pulse Rate 82 83 Pulse Rate [Apical] 80 Pulse Rhythm Regular Regular Pulse Rhythm [Apical] Pulse Strength Normal Normal Pulse Strength [Apical] Respiratory Rate 18 18 18 Respiratory Effort / Characteristics Non-Labored Respiratory Depth Normal Respiratory Pattern Regular Blood Pressure 126/47 L 118/62 Blood Pressure [Left Arm] 127/48 L Blood Pressure Mean 73 80 Blood Pressure Mean [Left Arm] 74 Blood Pressure Position Lying Lying Blood Pressure Position [Left Arm] Lying Pulse Oximetry 95 98 99 Oxygen Delivery Method Room Air Sepsis Recent Fever Within 48 Hours Sepsis New/Unexplained Change in Mental Status Sepsis Action Taken by Nursing Laboratory Data Result diagrams: 07/23/20 21:43 07/23/20 21:43 Lab Results 07/23/20 07/23/20 07/23/20 Range/Units 21:43 21:43 23:09 WBC 3.58 L (4.8-10.8) K/uL RBC 2.07 L (4.7-6.1) M/uL Hgb 6.7 L* (14.0-18.0) g/dL Hct 19.7 L* (42-52) % MCV 95.2 (80-100) fL MCH 32.4 (25-34) pg MCHC 34.0 (32-36) g/dL RDW Std Deviation 62.9 H (36.4-46.3) fL RDW Coeff of Leeanna 17.7 H (11.5-14.5) % Plt Count 76 L (130-400) K/uL MPV 12.0 H (7.4-10.4) fL Immature Gran % (Auto) 0.0 % Neut % (Auto) 54.5 % Lymph % (Auto) 23.7 % [place] % (Auto) 21.2 % Eos % (Auto) 0.3 % Baso % (Auto) 0.3 % Neut # (Auto) 1.95 (1.4-6.5) K/uL Lymph # (Auto) 0.85 L (1.2-3.4) K/uL [place] # (Auto) 0.76 H (0.11-0.59) K/uL Eos # (Auto) 0.01 (0-0.5) K/uL Baso # (Auto) 0.01 (0-0.2) K/uL Immature Gran # (Auto) 0.00 (0.00-0.02) K/uL Platelet Estimate Decreased L (Normal) Giant Platelets 1+ Tear Drop Cells Occasional Ovalocytes 1+ PT 11.3 (9.0-12.0) Seconds INR 1.1 (0.9-1.1) Sodium 136 (136-145) mmol/L Potassium 4.0 (3.5-5.1) mmol/L Chloride 107 (98-107) mmol/L Carbon Dioxide 22 (21-32) mmol/L Anion Gap 8.0 (3-11) BUN 31 H (7-18) mg/dl Creatinine 1.67 H (0.6-1.4) mg/dl Est Cr Clr Drug Dosing Not Reportable Est GFR ( Amer) 41.7 ml/min Est GFR (Non-Af Amer) 36.0 ml/min BUN/Creatinine Ratio 18.5 (10-20) Glucose 182 H (70-99) mg/dl Calcium 8.8 (8.5-10.1) mg/dl Magnesium 1.7 L (1.8-2.4) mg/dl Total Bilirubin 0.5 (0.2-1) mg/dl AST 12 L (15-37) U/L ALT 15 (12-78) U/L Alkaline Phosphatase 99 (45-117) U/L Troponin I 0.140 H* (0-0.045) ng/ml Total Protein 6.5 (6.4-8.2) gm/dl Albumin 2.7 L (3.4-5.0) gm/dl Globulin 3.8 (2.5-4.0) gm/dl Albumin/Globulin Ratio 0.7 L (0.9-2) TSH 1.220 (0.300-4.500) uIu/ml Urine Color Urine Appearance (Clear) Urine pH (4.5-7.5) Ur Specific [place] (1.000-1.030) Urine Protein (Negative) Urine Glucose (UA) (Negative) Urine Ketones (Negative) Urine Blood (Negative) Urine Nitrite (Negative) Urine Bilirubin (Negative) Urine Urobilinogen (Negative) Ur Leukocyte Esterase (Negative) Urine WBC (Auto) (0-5) /hpf Urine RBC (Auto) (0-4) /hpf U Hyaline Cast (Auto) (0-5) /lpf U Epithel Cells (Auto) (0-5) /lpf Urine Bacteria (Auto) (Negative) COVID-19 Eval Order Blood Type Blood Type Recheck Antibody Screen Crossmatch 07/23/20 07/23/20 07/24/20 Range/Units 23:09 23:14 00:27 WBC (4.8-10.8) K/uL RBC (4.7-6.1) M/uL Hgb (14.0-18.0) g/dL Hct (42-52) % MCV (80-100) fL MCH (25-34) pg MCHC (32-36) g/dL RDW Std Deviation (36.4-46.3) fL RDW Coeff of Leeanna (11.5-14.5) % Plt Count (130-400) K/uL MPV (7.4-10.4) fL Immature Gran % (Auto) % Neut % (Auto) % Lymph % (Auto) % [place] % (Auto) % Eos % (Auto) % Baso % (Auto) % Neut # (Auto) (1.4-6.5) K/uL Lymph # (Auto) (1.2-3.4) K/uL [place] # (Auto) (0.11-0.59) K/uL Eos # (Auto) (0-0.5) K/uL Baso # (Auto) (0-0.2) K/uL Immature Gran # (Auto) (0.00-0.02) K/uL Platelet Estimate (Normal) Giant Platelets Tear Drop Cells Ovalocytes PT (9.0-12.0) Seconds INR (0.9-1.1) Sodium (136-145) mmol/L Potassium (3.5-5.1) mmol/L Chloride (98-107) mmol/L Carbon Dioxide (21-32) mmol/L Anion Gap (3-11) BUN (7-18) mg/dl Creatinine (0.6-1.4) mg/dl Est Cr Clr Drug Dosing Est GFR ( Amer) ml/min Est GFR (Non-Af Amer) ml/min BUN/Creatinine Ratio (10-20) Glucose (70-99) mg/dl Calcium (8.5-10.1) mg/dl Magnesium (1.8-2.4) mg/dl Total Bilirubin (0.2-1) mg/dl AST (15-37) U/L ALT (12-78) U/L Alkaline Phosphatase (45-117) U/L Troponin I (0-0.045) ng/ml Total Protein (6.4-8.2) gm/dl Albumin (3.4-5.0) gm/dl Globulin (2.5-4.0) gm/dl Albumin/Globulin Ratio (0.9-2) TSH (0.300-4.500) uIu/ml Urine Color Yellow Urine Appearance Turbid A (Clear) Urine pH 5.0 (4.5-7.5) Ur Specific [place] 1.016 (1.000-1.030) Urine Protein 1+ H (Negative) Urine Glucose (UA) Negative (Negative) Urine Ketones Negative (Negative) Urine Blood 1+ H (Negative) Urine Nitrite Negative (Negative) Urine Bilirubin Negative (Negative) Urine Urobilinogen Negative (Negative) Ur Leukocyte Esterase 3+ H (Negative) Urine WBC (Auto) >30 H (0-5) /hpf Urine RBC (Auto) 0-4 (0-4) /hpf U Hyaline Cast (Auto) 0 (0-5) /lpf U Epithel Cells (Auto) 10-20 H (0-5) /lpf Urine Bacteria (Auto) 4+ H (Negative) COVID-19 Eval Order Blood Type O Negative Blood Type Recheck O Negative Antibody Screen NEGATIVE Crossmatch See Detail 07/24/20 Range/Units 00:53 WBC (4.8-10.8) K/uL RBC (4.7-6.1) M/uL Hgb (14.0-18.0) g/dL Hct (42-52) % MCV (80-100) fL MCH (25-34) pg MCHC (32-36) g/dL RDW Std Deviation (36.4-46.3) fL RDW Coeff of Leeanna (11.5-14.5) % Plt Count (130-400) K/uL MPV (7.4-10.4) fL Immature Gran % (Auto) % Neut % (Auto) % Lymph % (Auto) % [place] % (Auto) % Eos % (Auto) % Baso % (Auto) % Neut # (Auto) (1.4-6.5) K/uL Lymph # (Auto) (1.2-3.4) K/uL [place] # (Auto) (0.11-0.59) K/uL Eos # (Auto) (0-0.5) K/uL Baso # (Auto) (0-0.2) K/uL Immature Gran # (Auto) (0.00-0.02) K/uL Platelet Estimate (Normal) Giant Platelets Tear Drop Cells Ovalocytes PT (9.0-12.0) Seconds INR (0.9-1.1) Sodium (136-145) mmol/L Potassium (3.5-5.1) mmol/L Chloride (98-107) mmol/L Carbon Dioxide (21-32) mmol/L Anion Gap (3-11) BUN (7-18) mg/dl Creatinine (0.6-1.4) mg/dl Est Cr Clr Drug Dosing Est GFR ( Amer) ml/min Est GFR (Non-Af Amer) ml/min BUN/Creatinine Ratio (10-20) Glucose (70-99) mg/dl Calcium (8.5-10.1) mg/dl Magnesium (1.8-2.4) mg/dl Total Bilirubin (0.2-1) mg/dl AST (15-37) U/L ALT (12-78) U/L Alkaline Phosphatase (45-117) U/L Troponin I (0-0.045) ng/ml Total Protein (6.4-8.2) gm/dl Albumin (3.4-5.0) gm/dl Globulin (2.5-4.0) gm/dl Albumin/Globulin Ratio (0.9-2) TSH (0.300-4.500) uIu/ml Urine Color Urine Appearance (Clear) Urine pH (4.5-7.5) Ur Specific [place] (1.000-1.030) Urine Protein (Negative) Urine Glucose (UA) (Negative) Urine Ketones (Negative) Urine Blood (Negative) Urine Nitrite (Negative) Urine Bilirubin (Negative) Urine Urobilinogen (Negative) Ur Leukocyte Esterase (Negative) Urine WBC (Auto) (0-5) /hpf Urine RBC (Auto) (0-4) /hpf U Hyaline Cast (Auto) (0-5) /lpf U Epithel Cells (Auto) (0-5) /lpf Urine Bacteria (Auto) (Negative) COVID-19 Eval Order Covid19 at [facility] Blood Type Blood Type Recheck Antibody Screen Crossmatch Discharge Plan Visit Data Chief Complaint: Head Pain Stated Complaint: FELL AND HIT HIS HEAD ED Provider: Dario Casillas Discharge Problem: Fall, ABLA (acute blood loss anemia), Laceration of forehead without complication, Non-ST elevation UT (NSTEMI), Thrombocytopenia, Contusion of left chest wall Patient Disposition: Being Evaluated by Hospitalist Forms Stand Alone Forms: My [employer] Prescriptions Prescriptions: No Action finasteride 5 mg tablet 5 mg PO HS Qty: 90 RF: 3 glipizide 5 mg tablet 10 mg PO QAM RF: 0 sertraline 100 mg tablet 100 mg PO QAM RF: 0 hydroxyzine HCl 10 mg tablet 10 mg PO DAILY@1600 RF: 0 hydroxyzine HCl 25 mg tablet 25 mg PO HS RF: 0 tamsulosin 0.4 mg capsule 0.4 mg PO HS RF: 0 Anoro Ellipta 62.5-25 mcg/actuation blister with device 1 puffs INH QAM RF: 0 thiamine HCl (vitamin B1) [Vitamin B-1] 100 mg Tablet 100 mg PO QAM RF: 0 cyanocobalamin (vitamin B-12) [Vitamin B-12] 500 mcg Tablet 500 mcg PO QAM RF: 0 PreserVision AREDS [id number] Capsule 1 cap PO AMHS RF: 0 atorvastatin 80 mg Tablet 80 mg PO QAM RF: 0 aspirin 81 mg Tablet,Delayed Release (Dr/Ec) 81 mg PO QAM RF: 0 pantoprazole 40 mg Tablet,Delayed Release (Dr/Ec) 40 mg PO QAM RF: 0 Myrbetriq 25 mg Tablet Extended Release 24 Hr 25 mg PO HS RF: 0 quetiapine 25 mg tablet 25 mg PO HS RF: 0 metoprolol succinate 25 mg tablet extended release 24 hr 12.5 mg PO HS RF: 0 Referrals Referrals: Vinh Montano DO [Primary Care Provider] - Discharge Problem: Fall Qualifiers: Encounter type: initial encounter Qualified Code(s): W19.XXXA - Unspecified fall, initial encounter Laceration of forehead without complication Qualifiers: Encounter type: initial encounter Qualified Code(s): S01.81XA - Laceration without foreign body of other part of head, initial encounter Contusion of left chest wall Qualifiers: Encounter type: initial encounter Qualified Code(s): S20.212A - Contusion of left front wall of thorax, initial encounter
[2020-07-23 23:03] LABS: Hematocrit (blood only) 19.7 % (42-52); Hemoglobin 6.7 g/dL (14.0-18.0); Mean Corpuscular Hemoglobin 32.4 pg (25-34); Mean Corpuscular Volume 95.2 fL (80-100); Platelet Count 76 K/uL (130-400); RDW Coefficient of Variation 17.7 % (11.5-14.5); RDW Standard Deviation 62.9 fL (36.4-46.3); Red Blood Count 2.07 M/uL (4.7-6.1); White Blood Count 3.58 K/uL (4.8-10.8)
[2020-07-23 23:05] LABS: Basophils # (auto) 0.01 K/uL (0-0.2); Basophils % (auto) 0.3 %; Eosinophils # (auto) 0.01 K/uL (0-0.5); Eosinophils % (auto) 0.3 %; Giant Platelets 1+; Lymphocytes # (auto) 0.85 K/uL (1.2-3.4); Lymphocytes % (auto) 23.7 %; Monocytes # (auto) 0.76 K/uL (0.11-0.59); Monocytes % (auto) 21.2 %; Neutrophils # (auto) 1.95 K/uL (1.4-6.5); Neutrophils % (auto) 54.5 %; Ovalocytes 1+; Platelet Estimate Decreased (Normal); Tear Drop Cells Occasional
[2020-07-23 23:12] LABS: Alanine Aminotransferase 15 U/L (12-78); Albumin Level 2.7 gm/dl (3.4-5.0); Aspartate Aminotransferase 12 U/L (15-37); BUN Creatinine Ratio 18.5 (10-20); Blood Urea Nitrogen 31 mg/dl (7-18); Calcium 8.8 mg/dl (8.5-10.1); Carbon Dioxide 22 mmol/L (21-32); Chloride 107 mmol/L (98-107); Est GFR (African American) 41.7 ml/min; Glucose 182 mg/dl (70-99); Magnesium 1.7 mg/dl (1.8-2.4); Sodium 136 mmol/L (136-145)
[2020-07-23] MEDS ORDERED: SODIUM CHLORIDE 0.9% 250 ML IV PRN (23:16)
[2020-07-23 23:30] LABS: Albumin Globulin Ratio 0.7 (0.9-2); Alkaline Phosphatase 99 U/L (45-117); Bilirubin,Total 0.5 mg/dl (0.2-1); Globulin 3.8 gm/dl (2.5-4.0); Total Protein 6.5 gm/dl (6.4-8.2)
[2020-07-23 23:34] LABS: INR 1.1 (0.9-1.1); Prothrombin Time 11.3 Seconds (9.0-12.0)
[2020-07-24 01:05] LABS: Appearance Urine Turbid (Clear); Bacteria Urine Automated 4+ (Negative); Bilirubin Urine Negative (Negative); Blood Urine 1+ (Negative); Cast Urine Automated 0 /lpf (0-5); Color Urine Yellow; Glucose Urine UA Negative (Negative); Ketones Urine Negative (Negative); Leukocyte Esterase Urine 3+ (Negative); Nitrite Urine Negative (Negative); Protein Urine 1+ (Negative); RBC Urine Automated 0-4 /hpf (0-4); Specific Gravity Urine 1.016 (1.000-1.030); Urobilinogen Urine Negative (Negative); WBC Urine Automated >30 /hpf (0-5)
--- NOTE | 2020-07-24 01:50 | History & Physical Report ---
Date of Service July 24, 2020 Assessment & Plan (1) Fall: 89 yo M with hx CABG, Dm2, BPH, CKD4, C-spine Fracture, multiple falls admitted for fall workup and pancytopenia. Syncopal Workup for multiple falls -- likely multifactorial - per daughter, increasing HARVEY recently -- last TTE in 2017 w/o . New TTE ordered. - no electrolyte dysfunction - CT head normal - Symptomatic anemia could attribute to multiple falls/syncope - dehydration due to UTI/at baseline also possible factor - ambulatory dysfunction: patient describes having weak legs that frequently give out. PT/OT evaluation. Pancytopenia - new - bone marrow suppression from COVID19 vs. myelodysplasia - COVID19 test positive this admission, asymptomatic, will place in single room with contact precautions but no airborne isolation - peripheral smear pending - no recent fevers, chills, B symptoms - thrombocytopenia acutely decreased, normal a few months ago Anemia - chronic, worsened - normocytic, normochromic - with hx AVM and CKD4, could be acute GIB or Anemia of chronic disease - hemoccult stools. العراقي-scan CT negative for internal bleeding. - Hg 6.7 on admission, ,received 1 unit pRBC in ER, 1 additional to be transfused on the palma - trend CBC - peripheral smear as above - transfuse Hg <8 or <10 and symptomatic UTI - increasing difficulty with urinating in past few days - prone to UTIs, previous culture grew coag negative staph. UCx pending - could explain some aspect of weakness/falls - Hives allergy to penicillins and cefuroxime -- placed on bactrim BID. Afebrile, normotensive, normal HR, low suspiscion for sepsis with urinary source, will hold off on stronger antibiotic regimen (carbapenem) at this time - monitor fever curve Chronic Conditions HTN - cont metoprolol CAD s/p CABG - cont statin, ASA BPH - cont finasteride, tamsulosin, mirabegron Anx/Dep - cont seroquel, hydroxyzine, sertraline, DM2 - Glipizide held, SSI CKD4 - Cr and GFR at baseline, IVF maintenance COPD - cont home inhaler GERD - cont omeprazole DVT ppx: CI with GIB FEN/GI: DM2 diet, PPI Code Status: Full Code Dispo: Telemetry (2) Laceration of forehead without complication: (3) Pancytopenia: (4) Contusion of left chest wall: (5) Cervical spine fracture: (6) Restless leg syndrome: (7) BPH (benign prostatic hyperplasia): (8) Chronic kidney disease, stage 4 (severe): (9) Syncope: (10) Diabetes: (11) Coronary artery disease: (12) Hypertension: (13) ABLA (acute blood loss anemia): (14) Anxiety and depression: History of Present Illness 89 yo M hx CABG x3, CKD4, BPH, RLS, COVID19 (Apr 2020), DM2, AVM, chronic stable C2 fracture who presents to the ED for multiple falls and laceration to the head. His daughter is at bedside with him and aids in providing history as he is incredibly hard of hearing. He fell approximately 1 week ago while he was sitting on the commode. He states he fell sideways when his legs became weak and got lodged between the commode and the wall and wasn't able to pull himself up. Earlier today he states his legs felt weak again and he tripped and fell and hit his head. He denies any pre-syncopal symptoms prior to the falls, and denies loss of consciousness. He currently attests to some chest wall tenderness on the left where he struck the wall, but otherwise denies any symptoms or concerns. Primary Care Provider: Vinh Montano DO Allergies Allergy/AdvReac Type Severity Reaction Status Date / Time cefuroxime Allergy Intermediate Hives Verified 07/23/20 21:54 Penicillins Allergy Mild Hives Verified 07/23/20 21:54 olanzapine AdvReac Unknown Hallucinations, Verified 07/23/20 21:54 confusion and panic Home Medications Medication Instructions Recorded Confirmed Type Myrbetriq 25 mg PO HS 01/29/18 07/23/20 History aspirin 81 mg PO QAM 01/29/18 07/23/20 History atorvastatin 80 mg PO QAM 01/29/18 07/23/20 History pantoprazole 40 mg PO QAM 01/29/18 07/23/20 History finasteride 5 mg tablet 5 mg PO HS #90 tab 03/19/19 07/23/20 Rx glipizide 10 mg PO QAM 03/28/20 07/23/20 History hydroxyzine HCl 10 mg PO DAILY@1600 03/28/20 07/23/20 History sertraline 100 mg PO QAM 03/28/20 07/23/20 History hydroxyzine HCl 25 mg PO HS 04/17/20 07/23/20 History Anoro Ellipta 1 puffs INH QAM 04/20/20 07/23/20 History PreserVision AREDS 1 cap PO AMHS 04/20/20 07/23/20 History cyanocobalamin (vitamin B-12) 500 mcg PO QAM 04/20/20 07/23/20 History [Vitamin B-12] tamsulosin 0.4 mg PO HS 04/20/20 07/23/20 History thiamine HCl (vitamin B1) [Vitamin 100 mg PO QAM 04/20/20 07/23/20 History B-1] metoprolol succinate 12.5 mg PO HS 07/23/20 07/23/20 History quetiapine 25 mg PO HS 07/23/20 07/23/20 History Past Med/Surg History Medical History (Updated 07/24/20 @ 04:47 by Lilly Velez MD) Acid reflux CONTROLLED Acute bronchitis Anxiety and depression Atypical pneumonia AVM (arteriovenous malformation) of duodenum, acquired with hemorrhage BPH (benign prostatic hyperplasia) Cervical spine fracture 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, stage 4 (severe) Confusion COPD (chronic obstructive pulmonary disease) COVID-19 04/2020 Fall Gastric ulcer Gastritis and duodenitis Hematuria History of acute renal failure KIDNEY STONE BLOCKAGE 2 YR AGO/NO PROBLEMS SINCE History of kidney stones Hx of neck injury HX BROKEN NECK, 1 ST AND SECOND VERTEBRAE - 2 YRS AGO Hx of seasonal allergies Hydronephrosis Hyperlipidemia Hypertension Renal colic Restless leg syndrome Weakness Surgical History (Updated 07/24/20 @ 04:47 by Lilly Velez MD) Hx of appendectomy Hx of cardiac catheterization BEFORE BYPASS SURGERY/BLOCKAGES Hx of colonoscopy 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 Family History Other Hypertension Social History Smoking Status: Former smoker Tobacco Type: Cigarettes Cigarettes Per Day: QUIT MANY MANY YEARS AGO; Smoking End Date: 10 years ago; Second Hand Exposure: No; Hx Alcohol Use: No Hx Substance Use: No Preferred Language: [place] Communication Ability: Effective Communication Ability Comment: [place], memory issues 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 Beliefs That Will Affect Care: None marital status: Current Living Situation: Family Current Living Situation Comment: Johann and son-in-law live with patient Feels Safe at Home: Yes Safety Concerns: Feels Safe At This Time Assistive Devices: Cane, Glasses, Hearing Aid - Right and Wheelchair Review of Systems Constitutional: + weakness; no fever, no chills, no sweats and no fatigue Eyes: no blind spots and no discharge Ear, Nose, Mouth, Throat: no hearing loss and no nasal congestion Respiratory: no cough and no dyspnea Cardiovascular: no chest pain, no dyspnea on exertion and no edema Gastrointestinal: no abdominal pain, no nausea, no vomiting, no constipation, no diarrhea/loose stools and no blood in stools Musculoskeletal: + stiffness and + myalgia; no joint pain Neurologic: no tingling, no numbness and no headache(s) Endocrine: no fatigue Physical Exam Physical Exam: Constitutional: thin elderly male laying in bed in no acute distress Head: left forehead hematoma with laceration Eyes: EOMI, pupils equal and reactive bilaterally, no scleral icterus Cardiac: RRR, no murmurs, gallops or rubs. Normal S1, S2 Pulm: CTA BL, no wheezes, rhonchi, crackles or rubs, moving air well throughout both lungs Abd: soft, nontender, nondistended, normal bowel sounds, no rebound or guarding Skin: bruising over left lower abdomen and left chest wall from fall Extremities: 2+ peripheral pulses, no edema Neuro: no focal deficits, moving all 4 limbs, A&Ox3 Results & Data Results & Data ([facility]) Vital Signs (Past 12 Hours) Vital Signs Temp Pulse Pulse Resp BP BP Pulse Ox 07/24/20 01:15 36.9 C 83 18 118/62 99 07/24/20 01:00 37.6 C H 82 18 126/47 L 98 07/24/20 00:57 80 18 127/48 L 95 07/24/20 00:40 37.4 C 81 18 127/48 L 97 07/23/20 22:39 82 82 18 115/52 L 99 07/23/20 21:08 36.8 C 76 20 100 Laboratory Results WBC 3.58 K/uL (4.8-10.8) L 07/23/20 21:43 RBC 2.07 M/uL (4.7-6.1) L 07/23/20 21:43 Hgb 6.7 g/dL (14.0-18.0) L* 07/23/20 21:43 Hct 19.7 % (42-52) L* 07/23/20 21:43 MCV 95.2 fL (80-100) 07/23/20 21:43 MCH 32.4 pg (25-34) 07/23/20 21:43 MCHC 34.0 g/dL (32-36) 07/23/20 21:43 RDW Std Deviation 62.9 fL (36.4-46.3) H 07/23/20 21:43 RDW Coeff of Leeanna 17.7 % (11.5-14.5) H 07/23/20 21:43 Plt Count 76 K/uL (130-400) L 07/23/20 21:43 MPV 12.0 fL (7.4-10.4) H 07/23/20 21:43 Immature Gran % (Auto) 0.0 % 07/23/20 21:43 Neut % (Auto) 54.5 % 07/23/20 21:43 Lymph % (Auto) 23.7 % 07/23/20 21:43 Luna % (Auto) 21.2 % 07/23/20 21:43 Eos % (Auto) 0.3 % 07/23/20 21:43 Baso % (Auto) 0.3 % 07/23/20 21:43 Neut # (Auto) 1.95 K/uL (1.4-6.5) 07/23/20 21:43 Lymph # (Auto) 0.85 K/uL (1.2-3.4) L 07/23/20 21:43 Luna # (Auto) 0.76 K/uL (0.11-0.59) H 07/23/20 21:43 Eos # (Auto) 0.01 K/uL (0-0.5) 07/23/20 21:43 Baso # (Auto) 0.01 K/uL (0-0.2) 07/23/20 21:43 Immature Gran # (Auto) 0.00 K/uL (0.00-0.02) 07/23/20 21:43 Platelet Estimate Decreased (Normal) L 07/23/20 21:43 Giant Platelets 1+ 07/23/20 21:43 Tear Drop Cells Occasional 07/23/20 21:43 Ovalocytes 1+ 07/23/20 21:43 PT 11.3 Seconds (9.0-12.0) 07/23/20 23:09 INR 1.1 (0.9-1.1) 07/23/20 23:09 Sodium 136 mmol/L (136-145) 07/23/20 21:43 Potassium 4.0 mmol/L (3.5-5.1) 07/23/20:43 Chloride 107 mmol/L (98-107) 07/23/20:43 Carbon Dioxide 22 mmol/L (21-32) 07/23/20 21:43 Anion Gap 8.0 (3-11) 07/23/20 21:43 BUN 31 mg/dl (7-18) H 07/23/20:43 Creatinine 1.67 mg/dl (0.6-1.4) H 07/23/20:43 Est Cr Clr Drug Dosing Not Reportable 07/23/20 21:43 Est GFR ( Amer) 41.7 ml/min 07/23/20:43 Est GFR (Non-Af Amer) 36.0 ml/min 07/23/20 21:43 BUN/Creatinine Ratio 18.5 (10-20) 07/23/20 21:43 Glucose 182 mg/dl (70-99) H 07/23/20 21:43 Calcium 8.8 mg/dl (8.5-10.1) 07/23/20 21:43 Magnesium 1.7 mg/dl (1.8-2.4) L 07/23/20 21:43 Total Bilirubin 0.5 mg/dl (0.2-1) 07/23/20 21:43 AST 12 U/L (15-37) L 07/23/20 21:43 ALT 15 U/L (12-78) 07/23/20 21:43 Alkaline Phosphatase 99 U/L (45-117) 07/23/20 21:43 Troponin I 0.140 ng/ml (0-0.045) H* 05/13/21 21:43 Total Protein 6.5 gm/dl (6.4-8.2) 07/23/20 21:43 Albumin 2.7 gm/dl (3.4-5.0) L 07/23/20 21:43 Globulin 3.8 gm/dl (2.5-4.0) 07/23/20 21:43 Albumin/Globulin Ratio 0.7 (0.9-2) L 07/23/20 21:43 TSH 1.220 uIu/ml (0.300-4.500) 07/23/20 21:43 Urine Color Yellow 07/24/20 00:27 Urine Appearance Turbid (Clear) A 07/24/20 00:27 Urine pH 5.0 (4.5-7.5) 07/24/20 00:27 Ur Specific [place] 1.016 (1.000-1.030) 07/24/20 00:27 Urine Protein 1+ (Negative) H 07/24/20 00:27 Urine Glucose (UA) Negative (Negative) 07/24/20 00:27 Urine Ketones Negative (Negative) 07/24/20 00:27 Urine Blood 1+ (Negative) H 07/24/20 00:27 Urine Nitrite Negative (Negative) 07/24/20 00:27 Urine Bilirubin Negative (Negative) 07/24/20 00:27 Urine Urobilinogen Negative (Negative) 07/24/20 00:27 Ur Leukocyte Esterase 3+ (Negative) H 07/24/20 00:27 Urine WBC (Auto) >30 /hpf (0-5) H 07/24/20 00:27 Urine RBC (Auto) 0-4 /hpf (0-4) 07/24/20 00:27 U Hyaline Cast (Auto) 0 /lpf (0-5) 07/24/20 00:27 U Epithel Cells (Auto) 10-20 /lpf (0-5) H 07/24/20 00:27 Urine Bacteria (Auto) 4+ (Negative) H 07/24/20 00:27 COVID-19 Eval Order Covid19 at [facility] 07/24/20 00:53 SARS-CoV-2 (PCR) POSITIVE (Negative) A* 07/24/20 00:53 Blood Type O Negative 07/23/20 23:09 Blood Type Recheck O Negative 07/23/20 23:14 Antibody Screen NEGATIVE 07/23/20 23:09 Crossmatch See Detail 07/23/20 23:09 Supervising Physician Co-Signing Physician Notes Attending addendum: I have physically seen this patient, have supervised the medical residents ac tivities, and agree with the H&P unless as otherwise noted. Assessment and Plan: Anemia- Hemoglobin 6.7 upon admission. 1 unit PRBCs ordered from the ER, and will add 1 additional unit. H&H every 6 hours Peripheral smear Hemoccult stool test CT abdomen pelvis to assess for retroperitoneal bleeding Pancytopenia- Hemoglobin 6.7, platelets 76, and WBC 3.58 Peripheral smear No obvious signs of bleeding Question underlying bone marrow disorder such as myelodysplasia, or bone marrow suppression secondary to COVID-19 Consult hematology Multiple falls- May be multifactorial issues as outlined Consult PT/OT UTI history- Follow urine culture and sensitivity Bactrim twice daily as noted COVID-19 infection- No respiratory issues May be causing/contributing to generalized issues as noted above Follow clinical examination Remaining orders and notations as noted Resident Activity Tracking Resident Involvement: Resident Care Provided Care Provided: Adult Hospital Medicine (1) Laceration of forehead without complication Encounter type: initial encounter Qualified Code(s): S01.81XA - Laceration without foreign body of other part of head, initial encounter (2) BPH (benign prostatic hyperplasia) Lower urinary tract symptom presence: symptoms absent Qualified Code(s): N40.0 - Benign prostatic hyperplasia without lower urinary tract symptoms (3) Diabetes Diabetes mellitus complication status: without complication Diabetes mellitus long term care pharmacist insulin use: without long term care pharmacist use Diabetes mellitus type: type 2 Qualified Code(s): E11.9 - Type 2 diabetes mellitus without complications (4) Coronary artery disease Associated angina: without angina Coronary Disease-Associated Artery/Lesion type: [place] artery [place] vs. transplanted heart: [place] heart Qualified Code(s): I25.10 - Atherosclerotic heart disease of [place] coronary artery without angina pectoris (5) Contusion of left chest wall Encounter type: initial encounter Qualified Code(s): S20.212A - Contusion of left front wall of thorax, initial encounter (6) Hypertension Hypertension type: essential hypertension Qualified Code(s): I10 - Essential (primary) hypertension (7) Fall Encounter type: initial encounter Qualified Code(s): W19.XXXA - Unspecified fall, initial encounter
[2020-07-24] MEDS ORDERED: DEXTROSE 50% 50 ML SYRINGE IV PRN (03:34)
[2020-07-24] MEDS ORDERED: GLUCOSE 40% GEL 15 GM TUBE PO PRN (03:34)
[2020-07-24] MEDS ORDERED: ACETAMINOPHEN 325 MG TAB PO PRN (03:34)
[2020-07-24] MEDS ORDERED: SODIUM CHLORIDE 0.9% 250 ML IV PRN (03:34)
[2020-07-24] MEDS ORDERED: GLUCAGON FOR INJ 1 MG VIAL SQ PRN (03:34)
[2020-07-24] MEDS ORDERED: GLUCOSE 10 TAB/TUBE PO PRN (03:34)
[2020-07-24] MEDS ORDERED: ONDANSETRON INJ 2 MG/ML 2 ML VIAL IV PRN (03:34)
[2020-07-24] MEDS ORDERED: NITROGLYCERIN SL 0.4 MG/TAB TAB SL PRN (03:34)
[2020-07-24] MEDS ORDERED: CARBOHYDRATES FOR HYPOGLYCEMIA PO PRN (03:34)
[2020-07-24] MEDS: SODIUM CHLORIDE 0.9% 1000ML 1,000 ML IV SCH ×3 (03:54→18:32)
--- NOTE | 2020-07-24 07:02 | CT Scan Report ---
CT head/brain wo con CLINICAL HISTORY: 89 years-old Male with fall, hit head. Acute head and neck injury status post fall TECHNIQUE: Multiple axial CT images of the head were obtained without contrast. A dose lowering tech nique was utilized adhering to the principles of ALARA. COMPARISON: CT cervical spine of same day, head CT 04/20/2020 FINDINGS: No acute intracranial hemorrhage, midline shift, intracranial mass, hydrocephalus, territorial ischem ia or abnormal extra-axial collection. Mildly motion degraded exam. Age-related involutional changes with ex vacuo ventriculomegaly. Cerebral vascular calcifications. The calvarium is intact. Volume loss of the maxillary sinus. The right maxillary sinus is opacified. Trace right mastoid effusion. The left mastoid air cells are clear. Left forehead scalp hematoma, 3. 8 x 0.4 cm. Prior bilateral lens repair. IMPRESSION: Small left forehead scalp hematoma without acute intracranial abnormality or calvarial f racture. ACT 112: Negative or not required by law. The above report was generated using voice recognition software. It may contain grammatical, syntax o r spelling errors. Electronically signed by: Conor Rivera M.D. 07/24/2020 7:00 AM
--- NOTE | 2020-07-24 07:08 | CT Scan Report ---
CT cervical spine wo con CT DOSE: 1743.27 mGy.cm CLINICAL HISTORY: 89 years-old Male with fall. Acute head and neck injury status post fall COMPARISON: Head CT of same day, CT cervical spine 04/20/2020 TECHNIQUE: Multiple axial CT images of the cervical spine were obtained without contrast. A dose low ering technique was utilized adhering to the principles of ALARA. FINDINGS: Chronic appearing fractures of the posterior arch C1 and right C1 facet. 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 There is se yosef degeneration of the C1-C2 articulation with partial bony fusion. Unchanged alignment of the occi pital atlantal articulation. There is severe multilevel intervertebral disc space narrowing and facet arthrosis with at least partial degenerative related bony fusion noted at C3-T1. Unchanged grade 1 a nterolisthesis C4 on C5 and C5 on C6. No acute fracture or subluxation. Evaluation of the central can al and neuroforamina is better assessed by MRI. Multilevel neuroforaminal narrowing. No pneumothorax. There is no prevertebral edema. Carotid arterial calcifications. IMPRESSION: 1. No acute cervical spine fracture or subluxation. 2. 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 ACT 112: Negative or not required by law. The above report was generated using voice recognition software. It may contain grammatical, syntax o r spelling errors. Electronically signed by: Conor Rivera M.D. 07/24/2020 7:07 AM
--- NOTE | 2020-07-24 08:10 | CT Scan Report ---
CT SCAN OF THE ABDOMEN AND PELVIS WITHOUT CONTRAST CLINICAL HISTORY: Trauma. Left-sided contusion. Pain. COMPARISON STUDY: 08/31/2019 TECHNIQUE: CT scan of the abdomen and pelvis was performed from the lung bases to the proximal femurs . Images are reviewed in the axial, sagittal, and coronal planes. IV contrast was not administered fo r this examination. A dose lowering technique was utilized adhering to the principles of ALARA. CT DOSE: FINDINGS: Lower chest: There are bibasilar parenchymal opacities statistically atelectatic Liver: The unenhanced liver is normal in size, contour, and attenuation. There is no intrahepatic dari iary ductal dilatation. Gallbladder: Contracted Spleen: Normal in size and attenuation. Pancreas: Unremarkable. Adrenal glands: Unremarkable. Kidneys: There is a 32 mm upper pole right renal hypodense lesions statistically representing a cyst. There is mild perinephric stranding. There is no hydronephrosis. There is a 4 mm left renal calculus . There is a 3 mm right renal calculus. No ureteral calculi are visualized. Bowel: There are no transition zones to indicate bowel obstruction. There is colonic diverticulosis. There is no evidence of acute diverticulitis. There is no evidence of acute appendicitis. The appendi x is not visualized with certainty. Peritoneum: There is no intraperitoneal free air or abdominal ascites. Vasculature: There is no evidence of abdominal aortic aneurysm. There is persistent displacement of a ortic intimal calcifications raise the possibility of a chronic dissection. Adenopathy: None. Pelvic viscera: There is prostatomegaly, and bladder wall thickening. Skeletal structures: No acute fractures are visualized. There is an old L1 compression deformity. IMPRESSION: 1. No evidence of acute intra-abdominal or pelvic injury given the limitations of a noncontrast study . 2. No evidence of bowel obstruction. No evidence of free air 3. Bilateral nephrolithiasis 4. Prostatomegaly and bladder wall thickening. ACT 112: Negative or not required by law. Electronically signed by: Houston Figueroa M.D. 07/24/2020 8:09 AM
--- NOTE | 2020-07-24 08:18 | CT Scan Report ---
CT chest diagnostic wo con CLINICAL HISTORY: 89 years-old Male with fall, contusion Left. . Acute chest and abdominal pain stat us post fall TECHNIQUE: Multiaxial CT images of the chest were performed without contrast. A dose lowering techni que was utilized adhering to the principles of ALARA. COMPARISON: CT abdomen and pelvis of same day, and also 08/31/2019 chest radiograph 04/20/2020, CT thora cic spine 06/07/2018 FINDINGS: No thyroid nodule identified. There is no adenopathy. Mild cardiomegaly without pericardial effusion. Extensive [place] coronary artery calcifications. Prior sternotomy and CABG. Extensive calcified plaq ue of the thoracic aorta without aneurysm. Trace right pleural effusion. There is no pneumothorax. Bibasilar predominant subpleural groundglass opacities suggest atelectasis. There is no overt pulmonary edema, lobar airspace consolidation or kim picious pulmonary nodule. The central airways are patent. There is no pneumoperitoneum. Tiny hiatal hernia. Please refer to CT abdomen and pelvis study of same day for additional findings. Unremarkable soft tissues. Degenerative changes of the shoulders and sp ine. No acute fracture identified. IMPRESSION: 1. No acute intrathoracic abnormality. 2. No fracture or pneumothorax. 3. Chronic findings as above. ACT 112: Negative or not required by law. Electronically signed by: Conor Rivera M.D. 07/24/2020 8:17 AM
[2020-07-24] MEDS: ASPIRIN 81 MG ECTAB PO SCH (08:46)
[2020-07-24] MEDS: ATORVASTATIN 40 MG TAB PO SCH (08:47)
[2020-07-24] MEDS: SULFAMETHOXAZOLE/TRIMETHOPRIM DS 800/160MG TAB PO SCH ×2 (08:47→21:06)
[2020-07-24] MEDS: PANTOprazole 40 MG TAB PO SCH (08:48)
[2020-07-24] MEDS: SERTRALINE HCL 100 MG TABLET PO SCH (08:48)
[2020-07-24] MEDS: POLYETHYLENE (MIRALAX) 17 GM PACK PO SCH (08:49)
[2020-07-24] MEDS: CYANOCOBALAMIN (B-12) 500 MCG TABLET PO SCH (08:49)
[2020-07-24] MEDS: THIAMINE HCL 100 MG TAB PO SCH (08:49)
[2020-07-24] MEDS: UMECLIDINIUM/VILANTEROL 62.5/25MCG 7 PUFFS/INHALER INH SCH (08:49)
[2020-07-24 09:26] LABS: Hemoglobin 8.6 g/dL (14.0-18.0); Mean Corpuscular Hemoglobin 31.2 pg (25-34); Mean Corpuscular Hgb Conc 33.1 g/dL (32-36); Mean Corpuscular Volume 94.2 fL (80-100); Mean Platelet Volume 12.7 fL (7.4-10.4); Platelet Count 67 K/uL (130-400); RDW Coefficient of Variation 17.7 % (11.5-14.5); RDW Standard Deviation 59.9 fL (36.4-46.3); Red Blood Count 2.76 M/uL (4.7-6.1); White Blood Count 3.71 K/uL (4.8-10.8)
[2020-07-24 09:54] LABS: Eosinophils # (auto) 0.03 K/uL (0-0.5); Eosinophils % (auto) 0.8 %; Immature Granulocytes # (auto) 0.01 K/uL (0.00-0.02); Immature Granulocytes % (auto) 0.3 %; Lymphocytes # (auto) 0.99 K/uL (1.2-3.4); Lymphocytes % (auto) 26.7 %; Monocytes # (auto) 0.85 K/uL (0.11-0.59); Monocytes % (auto) 22.9 %; Neutrophils # (auto) 1.83 K/uL (1.4-6.5); Neutrophils % (auto) 49.3 %; Reticulocyte % 0.5 % (0.5-2.0); Reticulocytes # < 0.02 10^6/uL (0.02-0.10)
[2020-07-24 09:55] LABS: Albumin Level 2.8 gm/dl (3.4-5.0); BUN Creatinine Ratio 18.9 (10-20); Calcium 8.8 mg/dl (8.5-10.1); Est GFR (African American) 49.1 ml/min; Est GFR (Non-African American) 42.3 ml/min; Potassium 3.9 mmol/L (3.5-5.1)
[2020-07-24 09:58] LABS: Albumin Globulin Ratio 0.8 (0.9-2); Bilirubin,Total 0.8 mg/dl (0.2-1); Globulin 3.6 gm/dl (2.5-4.0); Total Protein 6.4 gm/dl (6.4-8.2)
[2020-07-24 10:04] LABS: Ferritin 403.6 ng/ml (8-388); Troponin I 0.125 ng/ml (0-0.045)
[2020-07-24 10:17] LABS: Folate (Folic Acid) 8.8 ng/ml (>5.38)
[2020-07-24] MEDS: INSULIN ASPART 100 UNITS/ML 3 ML PEN SC SCH ×4 (10:45→21:07)
[2020-07-24 12:32] LABS: Iron 76 mcg/dl (35-175); Transferrin 181 mg/dl (200-360); Transferrin (FE) Percent Satur 30 % (20-50)
--- NOTE | 2020-07-24 16:57 | XCELERA ---
[id number]
[2020-07-24] MEDS: hydrOXYzine HCl 10 MG TAB PO SCH (17:00)
[2020-07-24] MEDS: TAMSULOSIN HCL 0.4 MG CAP PO SCH (21:05)
[2020-07-24] MEDS: MIRABEGRON ER 25 MG TAB PO SCH (21:05)
[2020-07-24] MEDS: QUEtiapine FUMARATE 25 MG TABLET PO SCH (21:05)
[2020-07-24] MEDS: METOPROLOL SUCC 25MG EXT REL TAB PO SCH (21:05)
[2020-07-24] MEDS: FINASTERIDE 5 MG TAB PO SCH (21:07)
[2020-07-24] MEDS: hydrOXYzine HCl 25 MG TAB PO SCH (21:10)
[2020-07-25] MEDS: SODIUM CHLORIDE 0.9% 1000ML 1,000 ML IV SCH ×2 (02:21→11:10)
--- NOTE | 2020-07-25 05:18 | Billing Data ---
Date of Service July 25, 2020 Coding Level of Care Code 87705 Initial Inpt Care Lvl 3
[2020-07-25 06:56] LABS: Albumin Level 2.3 gm/dl (3.4-5.0); BUN Creatinine Ratio 16.1 (10-20); Calcium 7.9 mg/dl (8.5-10.1); Est GFR (African American) 55.9 ml/min; Est GFR (Non-African American) 48.3 ml/min; Potassium 4.1 mmol/L (3.5-5.1)
[2020-07-25 06:58] LABS: Albumin Globulin Ratio 0.7 (0.9-2); Bilirubin,Total 0.4 mg/dl (0.2-1); Globulin 3.2 gm/dl (2.5-4.0); Total Protein 5.5 gm/dl (6.4-8.2)
[2020-07-25 07:07] LABS: Eosinophils # (auto) 0.04 K/uL (0-0.5); Eosinophils % (auto) 1.2 %; Hemoglobin 7.7 g/dL (14.0-18.0); Immature Granulocytes # (auto) 0.01 K/uL (0.00-0.02); Immature Granulocytes % (auto) 0.3 %; Lymphocytes # (auto) 1.01 K/uL (1.2-3.4); Lymphocytes % (auto) 30.1 %; Mean Corpuscular Hemoglobin 31.4 pg (25-34); Mean Corpuscular Hgb Conc 33.5 g/dL (32-36); Mean Corpuscular Volume 93.9 fL (80-100); Mean Platelet Volume 12.3 fL (7.4-10.4); Monocytes # (auto) 0.79 K/uL (0.11-0.59); Monocytes % (auto) 23.5 %; Neutrophils # (auto) 1.51 K/uL (1.4-6.5); Neutrophils % (auto) 44.9 %; Ovalocytes 1+; Platelet Count 56 K/uL (130-400); Platelet Estimate Decreased (Normal); RDW Coefficient of Variation 17.5 % (11.5-14.5); RDW Standard Deviation 60.1 fL (36.4-46.3); Red Blood Count 2.45 M/uL (4.7-6.1); White Blood Count 3.36 K/uL (4.8-10.8)
[2020-07-25] MEDS: SULFAMETHOXAZOLE/TRIMETHOPRIM DS 800/160MG TAB PO SCH (08:16)
[2020-07-25] MEDS: CYANOCOBALAMIN (B-12) 500 MCG TABLET PO SCH (08:17)
[2020-07-25] MEDS: ATORVASTATIN 40 MG TAB PO SCH (08:17)
[2020-07-25] MEDS: SERTRALINE HCL 100 MG TABLET PO SCH (08:17)
[2020-07-25] MEDS: ASPIRIN 81 MG ECTAB PO SCH (08:17)
[2020-07-25] MEDS: THIAMINE HCL 100 MG TAB PO SCH (08:17)
[2020-07-25] MEDS: PANTOprazole 40 MG TAB PO SCH (08:17)
[2020-07-25] MEDS: UMECLIDINIUM/VILANTEROL 62.5/25MCG 7 PUFFS/INHALER INH SCH (08:18)
--- NOTE | 2020-07-25 09:44 | Hospitalist Progress Note ---
Date of Service July 25, 2020 Assessment & Plan (1) Fall: 89 yo M with hx CABG, Dm2, BPH, CKD4, C-spine Fracture, multiple falls admitted for fall workup and pancytopenia. Syncopal Workup for multiple falls - per daughter, increasing HARVEY recently -- last TTE in 2017 w/o . - Echo showed no aortic stenosis, some LVH with pulm HTN. - no electrolyte abnormalities - CT head normal - Symptomatic anemia could attribute to multiple falls/syncope in the setting of hydroxyzine use - dehydration due to UTI/at baseline also possible factor - ambulatory dysfunction: patient describes having weak legs that frequently give out. -PT/OT recommending rehab- awaiting placement. Pancytopenia - bone marrow suppression from COVID19 vs. myelodysplasia - COVID19 test positive this admission, asymptomatic. - peripheral smear with no significant findings - no recent fevers, chills, B symptoms - thrombocytopenia acutely decreased, normal a few months ago - Heme/Onc consult once discharged Anemia - normocytic, normochromic - with hx AVM and CKD4, could be acute GIB or Anemia of chronic disease - No hemoccult testing yet - [place]-scan CT negative for internal bleeding. - Hg 6.7 on admission, ,received 2 unit pRBC. Stable Hgb since then. - trend CBC - peripheral smear unremarkable - transfuse Hg <8 or <10 and symptomatic UTI - increasing difficulty with urinating in past few days - prone to UTIs, previous culture grew coag negative staph. -UA with blood, leukocyte esterase and bacteria. UCx growing Group B strep - could explain some aspect of weakness/falls - Hives allergy to penicillins and cefuroxime --Bactrim switched to cipro. - monitor fever curve Chronic Conditions HTN - cont metoprolol CAD s/p CABG - cont statin, ASA BPH - cont finasteride, tamsulosin, mirabegron Anx/Dep - cont seroquel, hydroxyzine, sertraline, DM2 - Glipizide held, SSI CKD4 - Cr and GFR at baseline, IVF maintenance COPD - cont home inhaler GERD - cont omeprazole DVT ppx: CI with GIB FEN/GI: DM2 diet, PPI Code Status: Full Code Dispo: Telemetry (2) Laceration of forehead without complication: (3) Pancytopenia: (4) Contusion of left chest wall: (5) Cervical spine fracture: (6) Restless leg syndrome: (7) BPH (benign prostatic hyperplasia): (8) Chronic kidney disease, stage 4 (severe): (9) Syncope: (10) Diabetes: (11) Coronary artery disease: (12) Hypertension: (13) ABLA (acute blood loss anemia): (14) Anxiety and depression: Admission and Anticipated Discharge Date Admission Date: July 24, 2020 Supervising Physician Co-Signing Physician Notes I personally examined the patient and verified all hillman points of history and exam, discussed case, and agree with decision making with Dr Cuevas. Feeling better just weak. Extensive discussion on working diagnosis and differentials. Notes that he has a lump on the side of his chest as well. Discussed with daughtertj at his request and updated the best my ability. Vitals noted, in general he is awake and alert very hard of hearing but appears to be totally oriented no distress. HEENT normocephalic large bruise on the left side of his forehead, although no open lesions. Mucous membranes moist. Neck shows full range of motion. Breathing unlabored no accessory muscle use good effort. His chest wall shows approximately 1 x 2 cm oblong palpable mobile mass subcutaneously at just anterior to the midaxillary line around the level of his fourth and fifth rib, it seems to be somewhat tender mildly firm not fluctuant but is mobile. Extremities show no cyanosis clubbing or edema, his left ankle does feel larger than his right. Weakness/syncope/fallsappears to be anemia related. Improved. Is also deconditionedPT OT recommending rehab Pancytopeniaconcern on marrow as the culprit, especially given that he is not showing any bleeding after several days of review, and his reticulocyte count is quite low. We will ask for hematology evaluationwas going to have this facilitated as an outpatient, but given that he is likely to need to go to rehab, to avoid delay in care we will ask hematology to see him in the hospital. Otherwise as above Subjective Mr. Fields seen this AM. He was sitting at bedside eating. Hard to communicate because of his difficulty hearing. Review of Systems Review of Systems: Other (Hard to communicate due to difficulty hearing.) Physical Exam Physical Exam: General: Alert. No acute distress Skin: No noted rashes or bruises Psych: Appropriate mood and affect Neuro: No gross deficits HEENT: NC/AT, Chest: Nontender to palpation. CV: RRR, Normal s1, s2. No murmurs appreciated Resp: Breath sounds clear bilaterally, no increased effort of breathing. Abdomen: Soft, nontender, nondistended. No guarding. No organomegaly appreciated. Extremities: No edema in lower extremities bilaterally. Results & Data Results & Data ([facility]) Vital Signs (Past 12 Hours) Vital Signs Temp Pulse Pulse Resp BP Pulse Ox 07/25/20 08:23 36.6 C 76 20 157/75 H 98 07/24/20 23:04 36.8 C 80 20 178/62 H 98 Resident Activity Tracking Resident Involvement: Resident Care Provided Care Provided: Adult Hospital Medicine (1) Laceration of forehead without complication Encounter type: initial encounter Qualified Code(s): S01.81XA - Laceration without foreign body of other part of head, initial encounter (2) BPH (benign prostatic hyperplasia) Lower urinary tract symptom presence: symptoms absent Qualified Code(s): N40.0 - Benign prostatic hyperplasia without lower urinary tract symptoms (3) Diabetes Diabetes mellitus complication status: without complication Diabetes mellitus terminal gauger insulin use: without half-way use Diabetes mellitus type: type 2 Qualified Code(s): E11.9 - Type 2 diabetes mellitus without complications (4) Coronary artery disease Associated angina: without angina Coronary Disease-Associated Artery/Lesion type: [place] artery [place] vs. transplanted heart: [place] heart Qualified Code(s): I25.10 - Atherosclerotic heart disease of [place] coronary artery without angina pectoris (5) Contusion of left chest wall Encounter type: initial encounter Qualified Code(s): S20.212A - Contusion of left front wall of thorax, initial encounter (6) Hypertension Hypertension type: essential hypertension Qualified Code(s): I10 - Essential (primary) hypertension (7) Fall Encounter type: initial encounter Qualified Code(s): W19.XXXA - Unspecified fall, initial encounter
[2020-07-25] MEDS: INSULIN ASPART 100 UNITS/ML 3 ML PEN SC SCH ×4 (10:58→21:50)
[2020-07-25] MEDS: POLYETHYLENE (MIRALAX) 17 GM PACK PO SCH (11:10)
[2020-07-25 13:32] LABS: Hematocrit (blood only) 24.5 % (42-52); Hemoglobin 8.3 g/dL (14.0-18.0)
--- NOTE | 2020-07-25 16:41 | Billing Data ---
Date of Service July 25, 2020 Coding Level of Care Code 38680 Subseq Hosp Care Lvl 3
[2020-07-25] MEDS: hydrOXYzine HCl 10 MG TAB PO SCH (17:43)
[2020-07-25] MEDS: CIPROFLOXACIN 500 MG TAB PO SCH (21:21)
[2020-07-25] MEDS: METOPROLOL SUCC 25MG EXT REL TAB PO SCH (21:29)
[2020-07-25] MEDS: MIRABEGRON ER 25 MG TAB PO SCH (21:29)
[2020-07-25] MEDS: QUEtiapine FUMARATE 25 MG TABLET PO SCH (21:29)
[2020-07-25] MEDS: TAMSULOSIN HCL 0.4 MG CAP PO SCH (21:29)
[2020-07-25] MEDS: FINASTERIDE 5 MG TAB PO SCH (21:29)
[2020-07-25] MEDS: hydrOXYzine HCl 25 MG TAB PO SCH (21:34)
[2020-07-26 06:39] LABS: Albumin Level 2.3 gm/dl (3.4-5.0); BUN Creatinine Ratio 15.5 (10-20); Calcium 8.7 mg/dl (8.5-10.1); Creatinine Clr Calc Pharmacy 36.5 ml/min; Est GFR (African American) 51.6 ml/min; Est GFR (Non-African American) 44.5 ml/min; Potassium 4.2 mmol/L (3.5-5.1)
[2020-07-26 06:41] LABS: Albumin Globulin Ratio 0.7 (0.9-2); Bilirubin,Total 0.4 mg/dl (0.2-1); Globulin 3.4 gm/dl (2.5-4.0); Total Protein 5.7 gm/dl (6.4-8.2)
[2020-07-26 06:43] LABS: Hematocrit (blood only) 23.5 % (42-52); Mean Corpuscular Hemoglobin 31.6 pg (25-34); Mean Corpuscular Volume 92.9 fL (80-100); Mean Platelet Volume 12.1 fL (7.4-10.4); Nucleated RBC # (auto) 0.02 K/uL (0-0); Nucleated RBC % (auto) 0.7 %; Platelet Count 47 K/uL (130-400); RDW Coefficient of Variation 17.4 % (11.5-14.5); RDW Standard Deviation 59.3 fL (36.4-46.3); Red Blood Count 2.53 M/uL (4.7-6.1); White Blood Count 3.29 K/uL (4.8-10.8)
[2020-07-26 06:44] LABS: Eosinophils # (auto) 0.04 K/uL (0-0.5); Eosinophils % (auto) 1.2 %; Giant Platelets 1+; Immature Granulocytes # (auto) 0.01 K/uL (0.00-0.02); Immature Granulocytes % (auto) 0.3 %; Lymphocytes # (auto) 0.89 K/uL (1.2-3.4); Lymphocytes % (auto) 27.1 %; Monocytes # (auto) 0.69 K/uL (0.11-0.59); Neutrophils # (auto) 1.66 K/uL (1.4-6.5); Neutrophils % (auto) 50.4 %; Platelet Estimate Decreased (Normal)
--- NOTE | 2020-07-26 09:33 | Hospitalist Progress Note ---
Date of Service July 26, 2020 Assessment & Plan (1) Fall: 89 yo M with hx CABG, Dm2, BPH, CKD4, C-spine Fracture, multiple falls admitted for fall workup and pancytopenia. Syncopal Workup for multiple falls - per daughter, increasing HARVEY recently -- last TTE in 2017 w/o . - Echo repeated this admission and showed no aortic stenosis. Noted some LVH with pulm HTN. - no electrolyte abnormalities - CT head normal - Symptomatic anemia could attribute to multiple falls/syncope in the setting of hydroxyzine use - dehydration due to UTI/at baseline also possible factor - ambulatory dysfunction: patient describes having weak legs that frequently give out. -PT/OT recommending rehab- awaiting placement. Pancytopenia - bone marrow suppression from COVID19 vs. myelodysplasia - COVID19 test positive this admission, asymptomatic. - peripheral smear with no significant findings - no recent fevers, chills, B symptoms - thrombocytopenia acutely decreased, normal a few months ago - Heme/Onc consult to be ordered since awaiting placement. Anemia - normocytic, normochromic - with hx AVM and CKD4, could be acute GIB or Anemia of chronic disease - No hemoccult testing yet - [place]-scan CT negative for internal bleeding. - Hg 6.7 on admission, ,received 2 unit pRBC. Stable Hgb since then. - trend CBC - peripheral smear unremarkable - transfuse as needed UTI - increasing difficulty with urinating in past few days - prone to UTIs - UA this admission with blood, leukocyte esterase and bacteria. UCx growing Group B strep. - could explain some aspect of weakness/falls - Hives allergy to penicillins and cefuroxime --Bactrim started on admission switched to ciprofloxacin. - monitor fever curve Chronic Conditions HTN - cont metoprolol CAD s/p CABG - cont statin, ASA BPH - cont finasteride, tamsulosin, mirabegron Anx/Dep - cont seroquel, hydroxyzine, sertraline, DM2 - Glipizide held, SSI CKD4 - Cr and GFR at baseline, IVF maintenance COPD - cont home inhaler GERD - cont omeprazole DVT ppx: CI with GIB FEN/GI: DM2 diet, PPI Code Status: Full Code Dispo: Telemetry (2) Laceration of forehead without complication: (3) Pancytopenia: (4) Contusion of left chest wall: (5) Cervical spine fracture: (6) Restless leg syndrome: (7) BPH (benign prostatic hyperplasia): (8) Chronic kidney disease, stage 4 (severe): (9) Syncope: (10) Diabetes: (11) Coronary artery disease: (12) Hypertension: (13) ABLA (acute blood loss anemia): (14) Anxiety and depression: Admission and Anticipated Discharge Date Admission Date: July 24, 2020 Supervising Physician Co-Signing Physician Notes I personally examined the patient and verified all hillman points of history and exam, discussed case, and agree with decision making with Dr Cuevas. no new complaints, just worried about ddx and what this will mean for him. answered questions to the best of my ability, unfortunatley without being able to provide clarity of details since situation is still an unknown as far as dx with fairly wide ddx, but outlined plan overall. Vitals noted, in general he is awake and alert very hard of hearing but appears to be totally oriented no distress. HEENT normocephalic large bruise on the left side of his forehead, although no open lesions. Mucous membranes moist. Neck shows full range of motion. Breathing unlabored no accessory muscle use good effort. His chest wall shows approximately 1 x 2 cm oblong palpable mobile mass subcutaneously at just anterior to the midaxillary line around the level of his fourth and fifth rib, it seems to be somewhat tender mildly firm not fluctuant but is mobile - nearly identical to yesterday. he brings up other areas he thought were similar lumps downt he side of his chest which are all just rib margins. Extremities show no cyanosis. Weakness/syncope/fallsappears to be anemia related. Improved. Is also deconditionedPT OT recommending rehab - for rehab likely tomorrow Pancytopeniaconcern on marrow as the culprit, especially given that he is not showing any bleeding after several days of review, and his reticulocyte count is quite low. Informed hematology of situation - dr villarreal will see in AM. currently counts are stable Otherwise as above Subjective Mr. Fields seen this AM. He was sitting in bed eating. Very comfortable, states just some discomfort when pressing on his chest. Hard to communicate because of his difficulty hearing. Review of Systems Review of Systems: Other unobtainable due to difficulty hearing. Physical Exam Physical Exam: General: Alert, oriented. No acute distress Skin: Raised bruise on left forehead Psych: Appropriate mood and affect Neuro: Significant hearing loss HEENT: NC, noted bruise on forehead Chest: tender to palpation on left CV: RRR, Normal s1, s2. No murmurs appreciated Resp: Breath sounds clear bilaterally, no increased effort of breathing. Abdomen: BS+. Soft, nontender, nondistended. No guarding. Extremities: No edema in lower extremities bilaterally. Results & Data Results & Data ([facility]) Vital Signs (Past 12 Hours) Vital Signs Temp Pulse Resp BP Pulse Ox 07/26/20 08:00 37.1 C 74 18 144/65 H 94 07/25/20 23:00 36.9 C 75 20 151/72 H 97 Resident Activity Tracking Resident Involvement: Resident Care Provided Care Provided: Adult Hospital Medicine (1) Laceration of forehead without complication Encounter type: initial encounter Qualified Code(s): S01.81XA - Laceration without foreign body of other part of head, initial encounter (2) BPH (benign prostatic hyperplasia) Lower urinary tract symptom presence: symptoms absent Qualified Code(s): N40.0 - Benign prostatic hyperplasia without lower urinary tract symptoms (3) Diabetes Diabetes mellitus complication status: without complication Diabetes mellitus skilled nursing insulin use: without machine long goods helper use Diabetes mellitus type: type 2 Qualified Code(s): E11.9 - Type 2 diabetes mellitus without complications (4) Coronary artery disease Associated angina: without angina Coronary Disease-Associated Artery/Lesion type: [place] artery [place] vs. transplanted heart: [place] heart Qualified Code(s): I25.10 - Atherosclerotic heart disease of [place] coronary artery without angina pectoris (5) Contusion of left chest wall Encounter type: initial encounter Qualified Code(s): S20.212A - Contusion of left front wall of thorax, initial encounter (6) Hypertension Hypertension type: essential hypertension Qualified Code(s): I10 - Essential (primary) hypertension (7) Fall Encounter type: initial encounter Qualified Code(s): W19.XXXA - Unspecified fall, initial encounter
[2020-07-26] MEDS: CYANOCOBALAMIN (B-12) 500 MCG TABLET PO SCH (09:43)
[2020-07-26] MEDS: SERTRALINE HCL 100 MG TABLET PO SCH (09:43)
[2020-07-26] MEDS: UMECLIDINIUM/VILANTEROL 62.5/25MCG 7 PUFFS/INHALER INH SCH (09:43)
[2020-07-26] MEDS: ASPIRIN 81 MG ECTAB PO SCH (09:44)
[2020-07-26] MEDS: PANTOprazole 40 MG TAB PO SCH (09:44)
[2020-07-26] MEDS: THIAMINE HCL 100 MG TAB PO SCH (09:44)
[2020-07-26] MEDS: CIPROFLOXACIN 500 MG TAB PO SCH ×2 (09:44→23:04)
[2020-07-26] MEDS: ATORVASTATIN 40 MG TAB PO SCH (09:51)
[2020-07-26] MEDS: POLYETHYLENE (MIRALAX) 17 GM PACK PO SCH (09:57)
[2020-07-26] MEDS: INSULIN ASPART 100 UNITS/ML 3 ML PEN SC SCH ×4 (09:57→23:11)
[2020-07-26] MEDS: hydrOXYzine HCl 10 MG TAB PO SCH (17:15)
--- NOTE | 2020-07-26 17:27 | Billing Data ---
Date of Service July 26, 2020 Coding Level of Care Code 56144 Subseq Hosp Care Lvl 3
--- NOTE | 2020-07-26 18:47 | Electrocardiogram Report ---
Test Reason : Blood Pressure : / mmHG Vent. Rate : 073 BPM Atrial Rate : 073 BPM P-R Int : 162 ms QRS Dur : 106 ms QT Int : 408 ms P-R-T Axes : 043 026 243 degrees QTc Int : 449 ms Normal sinus rhythm Anterior infarct , age undetermined Abnormal ECG When compared with ECG of 23-JUL-2020 22:21, Anterior infarct is now Present ST elevation has replaced ST depression in Anterior leads Nonspecific T wave abnormality has replaced inverted T waves in Inferior leads T wave inversion no longer evident in Lateral leads Confirmed by Krystian Bryant ([id number]) on 07/26/2020 6:46:52 PM Referred By: REFERRED SELF Confirmed By:Lui Bryant
[2020-07-26] MEDS: FINASTERIDE 5 MG TAB PO SCH (23:04)
[2020-07-26] MEDS: METOPROLOL SUCC 25MG EXT REL TAB PO SCH (23:05)
[2020-07-26] MEDS: MIRABEGRON ER 25 MG TAB PO SCH (23:05)
[2020-07-26] MEDS: QUEtiapine FUMARATE 25 MG TABLET PO SCH (23:06)
[2020-07-26] MEDS: hydrOXYzine HCl 25 MG TAB PO SCH (23:07)
[2020-07-26] MEDS: TAMSULOSIN HCL 0.4 MG CAP PO SCH (23:07)
[2020-07-27 07:45] LABS: Hematocrit (blood only) 25.3 % (42-52); Hemoglobin 8.5 g/dL (14.0-18.0); Mean Corpuscular Hemoglobin 31.4 pg (25-34); Mean Corpuscular Hgb Conc 33.6 g/dL (32-36); Mean Corpuscular Volume 93.4 fL (80-100); Nucleated RBC # (auto) 0.02 K/uL (0-0); Nucleated RBC % (auto) 0.5 %; RDW Standard Deviation 58.1 fL (36.4-46.3); Red Blood Count 2.71 M/uL (4.7-6.1); White Blood Count 3.35 K/uL (4.8-10.8)
[2020-07-27 07:53] LABS: Mean Platelet Volume 10.2 fL (7.4-10.4); Platelet Count 46 K/uL (130-400)
[2020-07-27] MEDS: CIPROFLOXACIN 500 MG TAB PO SCH (08:14)
[2020-07-27] MEDS: ASPIRIN 81 MG ECTAB PO SCH (08:14)
[2020-07-27] MEDS: ATORVASTATIN 40 MG TAB PO SCH (08:15)
[2020-07-27] MEDS: SERTRALINE HCL 100 MG TABLET PO SCH (08:15)
[2020-07-27] MEDS: CYANOCOBALAMIN (B-12) 500 MCG TABLET PO SCH (08:15)
[2020-07-27] MEDS: THIAMINE HCL 100 MG TAB PO SCH (08:15)
[2020-07-27] MEDS: INSULIN ASPART 100 UNITS/ML 3 ML PEN SC SCH ×2 (08:15→12:34)
[2020-07-27] MEDS: PANTOprazole 40 MG TAB PO SCH (08:15)
[2020-07-27] MEDS: UMECLIDINIUM/VILANTEROL 62.5/25MCG 7 PUFFS/INHALER INH SCH (08:16)
[2020-07-27 08:20] LABS: Albumin Level 2.5 gm/dl (3.4-5.0); BUN Creatinine Ratio 15.3 (10-20); Calcium 9.3 mg/dl (8.5-10.1); Creatinine Clr Calc Pharmacy 35.7 ml/min; Est GFR (African American) 50.3 ml/min; Est GFR (Non-African American) 43.4 ml/min; Potassium 4.8 mmol/L (3.5-5.1)
[2020-07-27] MEDS: POLYETHYLENE (MIRALAX) 17 GM PACK PO SCH (08:20)
[2020-07-27 08:22] LABS: Albumin Globulin Ratio 0.7 (0.9-2); Bilirubin,Total 0.4 mg/dl (0.2-1); Globulin 3.8 gm/dl (2.5-4.0); Total Protein 6.3 gm/dl (6.4-8.2)
[2020-07-27 08:38] LABS: Eosinophils # (auto) 0.05 K/uL (0-0.5); Eosinophils % (auto) 1.5 %; Lymphocytes # (auto) 0.78 K/uL (1.2-3.4); Lymphocytes % (auto) 23.3 %; Monocytes % (auto) 20.9 %; Neutrophils # (auto) 1.82 K/uL (1.4-6.5); Neutrophils % (auto) 54.3 %; Ovalocytes 1+; Tear Drop Cells 1+
--- NOTE | 2020-07-27 09:30 | Consultation Report ---
DATE OF CONSULTATION: 07/27/2020 REASON FOR CONSULTATION: Unexplained pancytopenia. HISTORY OF PRESENT ILLNESS: The patient is a pleasant 89-year-old gentleman who was admitted to [facility] on 07/24/2020 for multiple falls and syncopal episode. I was alerted over the weekend by the covering hospitalist of this gentleman's peripheral blood counts while not stellar at the start of admission, specifically his platelet count has begun to fall. Upon reviewing trends, his hemoglobin and white count have always been on the low side. His platelets here over the past couple of months have been trending downward as well. The patient actually contracted COVID-19 back in April and apparently his PCR is still positive. He has not had any fevers, chills or B symptoms. Apparently did receive 2 units of packed RBCs in divided dose during this admission. The patient himself is not the best historian, I think impart due to his poor hearing. He is awake and alert and does answer questions directly when focused; however, he tends to ramble on as well. According to the hospitalist note, this gentleman's UA indicated that he probably had a urinary tract infection. Urine cultures are positive for coag-negative Staphylococcus. Full radiographic workup including a CT scan of the head, chest, abdomen and pelvis was performed during admission. CTA of the chest, specifically showed no acute intrathoracic injury, fracture or pneumothorax. CT of the abdomen and pelvis revealed only prostatomegaly and bladder wall thickening. CT of the head revealed a small left forehead scalp hematoma without acute intracranial anomaly or skull fracture. Peripheral blood counts today reveal a WBC count of 3350, hemoglobin 8.5 and platelet count is pending, yesterday was in the 40,000 range. Primary service is requesting assistance on the patient's peripheral blood counts. PAST MEDICAL HISTORY: Significant for coronary artery disease, BPH, hypertension, type 2 diabetes mellitus, chronic kidney disease stage IV, COPD and GERD. PAST SURGICAL HISTORY: Appendectomy, cardiac catheterization, colonoscopy and coronary artery bypass surgery in the 70s. MEDICATIONS: Prior to admission include quetiapine 25 mg p.o. at bedtime, metoprolol 12.5 mg p.o. at bedtime, thiamine 100 mg p.o. daily, tamsulosin 0.4 mg p.o. at bedtime, vitamin B12 500 mcg p.o. daily, Anoro Ellipta 1 puff inhaled daily, hydroxyzine 25 mg p.o. at bedtime, sertraline 100 mg p.o. daily, glipizide 10 mg p.o. daily, finasteride 5 mg p.o. at bedtime, Protonix 40 mg p.o. daily, atorvastatin 80 mg p.o. daily, aspirin 81 mg p.o. daily, Myrbetriq 25 mg p.o. at bedtime. ALLERGIES: OLANZAPINE, PENICILLINS AND CEFUROXIME. SOCIAL HISTORY: The patient is a reformed smoker. He is . Patient, currently lives with daughter and son-in-law. FAMILY HISTORY: Positive for hypertension. REVIEW OF SYSTEMS: Unobtainable because of the patient's fleeting mental status. PHYSICAL EXAMINATION: GENERAL: Very pleasant 89-year-old man, awake and alert, in no acute distress. VITAL SIGNS: Temperature 36.8, pulse 77, respiratory rate 18, blood pressure 135/85. SKIN: Warm, dry, noncyanotic without petechia, rash or ecchymosis. HEENT: Head is atraumatic, normocephalic. Eyes: PERRLA, EOMI. Sclerae nonicteric. No conjunctival injection. Nares are patent without rhinorrhea or discharge. Throat is clear. Tongue is midline. No buccal lesions or ulcerations. HEART: Regular rate and rhythm. No clicks, rubs, murmurs or gallops. LYMPHATICS: No cervical or supraclavicular palpable nodes. LUNGS: Clear to auscultation. ABDOMEN: Soft, nontender, nondistended, without palpable hepatosplenomegaly. EXTREMITIES: No clubbing, cyanosis or edema. NEUROLOGIC: Nonfocal. IMPRESSION: 1. Unexplained pancytopenia. 2. Syncope and multiple falls. 3. Chronic anemia. 4. Urinary tract infection, Staphylococcus B, coag negative. PLAN: The patient is a pleasant 89-year-old gentleman with a progressively declining peripheral blood counts most notably his platelet count as of late. The patient has an active infection that needs to clear and we will see where his peripheral blood counts rebound. Certainly myelodysplasia is within the differential diagnosis and at some point, bone marrow biopsy and aspiration should be done to rule out this diagnosis. Obviously, I am not in favor of doing such a procedure while he is in house. Would continue to monitor his peripheral blood counts on a daily basis. Maintain hemoglobin above 7.5 grams per deciliter and if platelets fall below 15,000 provide single donor platelets. Hopefully, his platelet count has reached vamshi. Perhaps a reticulocyte count would be helpful to see how his marrow is functioning in general. I suspect retic count may be a bit on the normal or low side, which would be inappropriate for his degree of cytopenia. We will continue to follow this gentleman during hospitalization, but suspect he will need to be seen as outpatient once he is medically stable and pursue a bone marrow biopsy and aspiration at that time. Thank you very much for allowing me to participate in his care. If you have any questions or concerns, please feel free to contact me at any time.
--- NOTE | 2020-07-27 12:14 | Discharge Summary ---
Date of Service July 27, 2020 Principal Diagnosis Ambulatory dysfunction Discharge Exam Constitutional WD/WN, vitals as above Eyes PERRL, conjunctivae normal, anicteric sclerae Respiratory normal respiratory effort, lungs clear to auscultation Auscultation: no crackles, no rales, no rhonchi and no wheezes Cardiovascular Rate/Rhythm: regular rate and regular rhythm Heart Sounds: no gallop, no murmur and no cardiac rub Vessels: normal peripheral pulses; no JVD Extremities: no edema Gastrointestinal (Abdomen) Inspection/Auscultation: normal bowel sounds; abdomen not distended Percussion/Palpation: abdomen soft; abdomen nontender and no guarding Skin no rashes, warm and dry Neurologic PERRL, EOMI, accommodation nl, no face palsy, no dysarthria CN's II-XI intact bilaterally and moves all extremities Psychiatric Orientation: alert and oriented x 3 Discharge Data Allergies Allergy/AdvReac Type Severity Reaction Status Date / Time cefuroxime Allergy Intermediate Hives Verified 07/23/20 21:54 Penicillins Allergy Mild Hives Verified 07/23/20 21:54 olanzapine AdvReac Unknown Hallucinations, Verified 07/23/20 21:54 confusion and panic Consultations 07/24/20 01:35 ED Decision to Admit Stat 07/26/20 14:53 Consult Hematology Routine Ordered Studies 07/23/20 21:43 CT head/brain wo con Urgent 07/23/20 21:47 CT Abd and Pelvis [CT abd pelvis wo con] Urgent CT chest diagnostic wo con Urgent 07/23/20 21:53 CT cervical spine wo con Urgent Hospital Course (1) Fall: Christian Fields is 89 yo M with hx CABG, Dm2, BPH, CKD4, C-spine Fracture, multiple falls admitted for fall workup and pancytopenia. Ambulatory dysfunction: - Patient describes having weak legs that frequently give out - per daughter, increasing HARVEY recently -- last TTE in 2017 w/o . - Echo repeated this admission and showed no aortic stenosis. Noted some LVH with pulm HTN. - CT head normal - Symptomatic anemia could attribute to multiple falls/syncope in the setting of hydroxyzine use - discharged to [facility] for acute rehab Pancytopenia: - bone marrow suppression from COVID19 vs. myelodysplasia - COVID19 test positive this admission, asymptomatic. - peripheral smear with no significant findings - no recent fevers, chills, B symptoms - thrombocytopenia acutely decreased, normal a few months ago - Heme/Onc consult: to continue to follow-up as outpatient for pancytopenia Anemia: - normocytic, normochromic - with hx AVM and CKD4, could be acute GIB or Anemia of chronic disease - No hemoccult testing yet - [place]-scan CT negative for internal bleeding. - Hg 6.7 on admission, ,received 2 unit pRBC. Stable Hgb since then. - trend CBC - peripheral smear unremarkable - transfuse as needed UTI: - increasing difficulty with urinating in past few days - prone to UTIs - UA this admission with blood, leukocyte esterase and bacteria. UCx growing Group B strep. - could explain some aspect of weakness/falls - Hives allergy to penicillins and cefuroxime --Bactrim started on admission switched to ciprofloxacin during admission - discharged on 3 additional days of Ciprofloxacin Chronic Conditions HTN - cont metoprolol CAD s/p CABG - cont statin, ASA BPH - cont finasteride, tamsulosin, mirabegron Anx/Dep - cont seroquel, hydroxyzine, sertraline, DM2 - Glipizide held, SSI CKD4 - Cr and GFR at baseline, IVF maintenance COPD - cont home inhaler GERD - cont omeprazole (2) Laceration of forehead without complication: (3) Pancytopenia: (4) Contusion of left chest wall: (5) Cervical spine fracture: (6) Restless leg syndrome: (7) BPH (benign prostatic hyperplasia): (8) Chronic kidney disease, stage 4 (severe): (9) Syncope: (10) Diabetes: (11) Coronary artery disease: (12) Hypertension: (13) ABLA (acute blood loss anemia): (14) Anxiety and depression: Total Time Total Time Spent Total Time Spent (In Minutes): <30 Discharge Plan Discharge Items Patient Disposition: Transfer Inpatient Rehab Fac Reason For Visit: FALL Discharge Diagnosis: ambulatory dysfunction Activity: Per Instructions section Non-emergency contact: Primary Care Provider Call non-emergency contact if: you have any medication questions, your symptoms worsen, your pain is worsening and you have a fever Follow-up/Referrals: Harris Angel DO [Physician] - (Follow-up in 1 month) Vinh Montano DO [Primary Care Provider] - Diet: Carb Consistent or DM2 Addtl Attending Provider Instructions: You were seen and admitted for concerns of persistent syncope and many recent falls. During this evaluation, your evaluation determined that while you did not have a demonstrated deficit that was causing your weakness, you did have a profound weakness that likely has built up over time. As a result of this you are being discharged to [facility] to continue to work on your strength and rehab to improving your independence and decrease the falls. Additionally, during this admission your blood counts were lower than they previously had been. While you are currently dealing with COVID-19, these numbers being lower may not necessarily demonstrate changes to the cells that produce your blood cell counts, but this is difficult to determine if this is a chronic change or an acute change as a result of your current infection. You should continue to follow-up with Dr. Angel in order to further observe your counts. Pending Studies at Discharge: No Stand-Alone Forms: My [facility] Skilled Items Patient informed of condition?: Yes DNR: Yes Discharge Level of Care: Acute rehab Communicable Disease: Yes Discharge Prognosis: Stable Lines: None Urinary Catheter: No Medications and DC Order Prescriptions: New ciprofloxacin HCl 500 mg Tablet 500 mg PO BID 3 Days Qty: 6 RF: 0 Continued finasteride 5 mg tablet 5 mg PO HS Qty: 90 RF: 3 glipizide 5 mg tablet 10 mg PO QAM RF: 0 sertraline 100 mg tablet 100 mg PO QAM RF: 0 hydroxyzine HCl 10 mg tablet 10 mg PO DAILY@1600 RF: 0 hydroxyzine HCl 25 mg tablet 25 mg PO HS RF: 0 tamsulosin 0.4 mg capsule 0.4 mg PO HS RF: 0 Anoro Ellipta 62.5-25 mcg/actuation blister with device 1 puffs INH QAM RF: 0 thiamine HCl (vitamin B1) [Vitamin B-1] 100 mg Tablet 100 mg PO QAM RF: 0 cyanocobalamin (vitamin B-12) [Vitamin B-12] 500 mcg Tablet 500 mcg PO QAM RF: 0 PreserVision AREDS [id number],320-226-200 bnmw-mo-rlda Capsule 1 cap PO AMHS RF: 0 atorvastatin 80 mg Tablet 80 mg PO QAM RF: 0 aspirin 81 mg Tablet,Delayed Release (Dr/Ec) 81 mg PO QAM RF: 0 pantoprazole 40 mg Tablet,Delayed Release (Dr/Ec) 40 mg PO QAM RF: 0 Myrbetriq 25 mg Tablet Extended Release 24 Hr 25 mg PO HS RF: 0 quetiapine 25 mg tablet 25 mg PO HS RF: 0 metoprolol succinate 25 mg tablet extended release 24 hr 12.5 mg PO HS RF: 0 Discharge Orders: Discharge Order (Routine); Ordered 07/27/20 Ordered By: Ismael Navarrete Admission Data Admit Date/Time: 07/24/20 02:28 Attending Provider: Cornine Sultana Admit Provider: Lilly Velez Primary Care Provider: Vinh Montano Other Providers: Navjot Hayes ; Veacon ; Harris Angel V. Other Interventions: Discharge Summary Assessment (RN) Last Done: 07/27/20 14:57 Supervising Physician Co-Signing Physician Notes Patient seen and examined with PGY-2 Dr. Navarrete. Agree with history, exam findings, assessment and plan of care. 89 year old male with hx of CABG, DM2, CKD Stage 4, BPH and multiple falls admitted with falls and pancytopenia. Feels well. No complaints. He acknowledges that he has been losing weight and getting a bit weaker, making it difficult to care for himself safely. He is hopeful that a course of inpatient rehab with [facility] will be helpful so that he can return home safely. Well appearing, with multiple areas of ecchymosis of the arms, leg and an area above the left eye/forehead area. 1. Multiple falls. ?mechanical vs syncope in the setting of known aortic stenosis vs deconditioning. Repeat Echo without . PT/OT. Placement pending. 2. Pancytopenia. Positive COVID19 test, but asymptomatic. 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 Peripheral smear unremarkable. Can follow up with heme/onc as an outpatient. 3. Anemia. In the setting of known CKD. Hgb 6.7 on admission s/p 2units PRBCs. No signs of source for bleed. 4. UTI. UA suggestive of infection. Culture with Group B strep. Initially on Bactrim, now on ciprofloxacin. Dispo: Discharge to [facility] today. I personally spent 25 minutes discharge planning for this patient. Resident Activity Tracking Resident Involvement: Resident Care Provided Care Provided: Adult Hospital Medicine
[2020-07-27] MEDS: hydrOXYzine HCl 10 MG TAB PO SCH (15:41)
--- NOTE | 2020-08-04 15:55 | Coding Query ---
CODING QUERY To promote full compliance with coding requirements relating to patient care, provider participation is requested in all cases of marine photographer uncertainty. Please assist us with the question(s) below: Coding Question(s): Patient admitted due to repeat falls and pancytopenia. Please document, if known or suspected, the etiology of the repeat falls. Thanks for your help! José Lamas [facility] Physician's Response(s): Recent fall likely multifactorial, but anemia is the most likely cause of fall prior to admission. Principal Diagnosis: "that condition established after study, to be chiefly responsible for occasioning the admission of the patient to the hospital for care." Co-Existing Principal Diagnosis: "when two or more diagnoses equally meet the criteria for principal diagnosis as determined by the circumstances of admission, diagnostic work up, and/or therapy provided, and the Alphabetic Index, Tabular List, or another coding guideline does not provide sequencing direction, any one of the diagnoses may be sequenced first." "When the physician has documented what appears to be a current diagnosis in the body of the record, but has not included the diagnosis in the final diagnostic statement, the physician should be asked whether the diagnosis should be added." (Source Coding Clinic 2 QTR90. p3-4) SUSANNA
== END 2020-07-27 16:15 ==
LOC: ED 20:49 → 2W 07-24 02:28 → SUATTDRO 07-24 02:28 → 2W 07-24 03:23 → 2N 07-24 07:52

== ENCOUNTER 2020-09-23 11:07 | Inpatient (IN) ==
--- NOTE | 2020-09-23 12:08 | Emergency Department Note ---
Impression & Plan Rupture of spleen, Fall, Multiple rib fractures ED Provider Note NAME: JOSTIN MAY AGE: 89 SEX: M : 1930 ARRIVES VIA: Ambulance INFORMANT: Patient ED PROVIDER(S): Juvencio Leon DO CHIEF COMPLAINT: fall HPI: Patient is an 89-year-old male who presents the ER following mechanical fall. He normally walks with a walker but last night he got up to go the bathroom and notes in the bathroom he cannot use his walker. He fell onto his left side. He did not pass out. He was able to get himself up. He has persistent pain over his left chest wall going down to his abdomen. It is worse with breathing. He denies any nausea, vomiting, or diarrhea. No dysuria, urgency, or frequency. Denies taking any blood thinners. No chest pain or shortness of breath other than the pain on his ribs with movement and breathing. Pain is a 6-7 out of 10. Laying still improves his pain. No extremity pain. ROS: See above HPI for pertinent positives & negatives. A total of 10 systems reviewed and were otherwise negative. PAST MEDICAL HISTORY:See Below PAST SURGICAL HISTORY:See Below FAMILY HISTORY:See Below SOCIAL HISTORY:See Below HOME MEDICATIONS:See Below ALLERGIES:See Below VITALS:See Below PHYSICAL EXAMINATION: GENERAL: Sitting up in bed, alert, well appearing, well nourished, no distress, non-toxic EYE EXAM: normal conjunctiva. OROPHARYNX: no exudate, no erythema, lips, buccal mucosa, and tongue normal and mucous membranes are moist NECK: supple, no nuchal rigidity, no adenopathy, non-tender CHEST: Tenderness over the left chest wall on palpation tracking through the belly LUNGS: Clear to auscultation. Normal chest wall mechanics HEART: no murmurs, S1 normal and S2 normal ABDOMEN: abdomen soft, non-tender, normo-active bowel sounds, no masses, no rebound or guarding. BACK: Back is symmetrical on inspection and there is no deformity, no midline tenderness, no CVA tenderness. SKIN: Diffuse bruising on upper and lower extremities UPPER EXTREMITIES: upper extremities are grossly normal. LOWER EXTREMITIES: No pitting edema. NEURO EXAM: Normal sensorium, cranial nerves II-XII grossly intact, normal speech, no gross weakness of arms, no gross weakness of legs. MEDICAL DECISION MAKING: Patient is an 89-year-old gentleman who presents the ER following a fall this morning overnight. He is complaining of left-sided rib and belly pain. IV was established blood was obtained. Labs show mild leukopenia 4000. Hemoglobin was at 7.8. Platelets were low at 39. She does have persistent thrombocytopenia. INR was slightly elevated at 1.2. BMP with a creatinine of 1.9 up from a baseline of 1.6. LFTs bilirubin was unremarkable. Troponin was negative. Shaffer scan was performed of the head neck chest abdomen pelvis and showed multiple rib fractures as well as a likely splenic laceration with a moderate amount of hemoperitoneum. Consulted [facility] Dr. Herrera after discussion with the family and the findings. Dr. Moreno recommended discussing with IR general surgeon and if our general surgeon had any questions he would speak with him. Consulted Dr. Syed Stephen. He evaluated the patient graciously and took him to the OR. Patient was typed and crossed. She was ordered 2 units of PRBCs in the ER. Patient did drop his pressures once initially upon presentation to the 80s but otherwise remained in the low 100s. He is not tachycardic although he was on beta-blockade. Triage Nursing notes reviewed. Limited review of prior medical records performed Vital Signs: reviewed and remarkable for no significant abnormalities Differential diagnosis: Differential diagnoses include major intracranial, cervical, spinal, thoracic, abdominal, pelvic and neurologic injury. Fracture, contusion, sprain, strain, laceration, abrasions included as well. ER treatment provided: See below Diagnostics interpreted by me: ECG: Sinus rhythm rate of 67 ST depressions in the inferior leads and lateral leads QTC [address] wave changes are new from previous in July Cardiac Monitoring: An order was placed for continuous cardiac monitoring. The monitor shows a rate of 68 with sinus rhythm. Laboratory studies: As stated above and show below. Imaging studies: CT shaffer scan showed ruptured spleen with a large amount of hemoperitoneum Consultation(s): Discussed with out to the trauma as stated above Discussed with Syed Stephen Procedures: none Critical Care: I have personally spent 75 minutes of critical care time in the direct management of this patient. This includes bedside care, interpretation of dara gnostic studies, and testing, discussion with consultants, patient, and family members, and other required patient management activities. This 75 minutes is in excess of all separately billable procedures. 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, stage 4 (severe) Confusion COPD (chronic obstructive pulmonary disease) COVID-19 04/2020 Fall Gastric ulcer Gastritis and duodenitis Hematuria History of acute renal failure KIDNEY STONE BLOCKAGE 2 YR AGO/NO PROBLEMS SINCE History of kidney stones Hx of neck injury HX BROKEN NECK, 1 ST AND SECOND VERTEBRAE - 2 YRS AGO Hx of seasonal allergies Hydronephrosis Hyperlipidemia Hypertension Renal colic Restless leg syndrome Weakness Surgical History Hx of appendectomy Hx of cardiac catheterization BEFORE BYPASS SURGERY/BLOCKAGES Hx of colonoscopy 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 Family History Other Hypertension Social History Smoking Status: Former smoker Tobacco Type: Cigarettes Second Hand Exposure: No; Do You Dip or Chew Tobacco: No; Tobacco Cessation Education Requested by Patient: No Hx Alcohol Use: No Hx Substance Use: No Preferred Language: Polish Communication Ability: Effective Communication Ability Comment: [place], memory issues [employer] Required: No Beliefs That Will Affect Care: None marital status: / Current Living Situation: Family Current Living Situation Comment: Daugher and son-in-law live with patient Other Information That Helps Us Care for You: No Feels Safe at Home: Yes Safety Concerns: Feels Safe At This Time Assistive Devices: Cane, Glasses, Hearing Aid - Right and Wheelchair Allergies Allergies Allergy/AdvReac Type Severity Reaction Status Date / Time cefuroxime Allergy Intermediate Hives Verified 09/23/20 14:08 Penicillins Allergy Mild Hives Verified 09/23/20 14:08 olanzapine AdvReac Unknown Hallucinations, Verified 09/23/20 14:08 confusion and panic Home Meds Home Medications Medication Instructions Recorded Confirmed aspirin 81 mg tablet,delayed 81 mg PO QAM 01/29/18 09/23/20 release atorvastatin 80 mg tablet 80 mg PO QAM 01/29/18 09/23/20 mirabegron 25 mg tablet,extended 25 mg PO HS 01/29/18 09/23/20 release 24 hr (Myrbetriq) pantoprazole 40 mg tablet,delayed 40 mg PO QAM 01/29/18 09/23/20 release glipizide 5 mg tablet 10 mg PO QAM 03/28/20 09/23/20 hydroxyzine HCl 10 mg tablet 10 mg PO DIRECTED PRN 03/28/20 09/23/20 sertraline 100 mg tablet 100 mg PO QAM 03/28/20 09/23/20 cyanocobalamin (vitamin B-12) 500 500 mcg PO QAM 04/20/20 09/23/20 mcg tablet (Vitamin B-12) tamsulosin 0.4 mg capsule 0.4 mg PO HS 04/20/20 09/23/20 thiamine HCl (vitamin B1) 100 mg 100 mg PO QAM 04/20/20 09/23/20 tablet (Vitamin B-1) umeclidinium 62.5 mcg-vilanterol 1 puffs INH QAM 04/20/20 09/23/20 25 mcg/actuation powdr for inhalation (Anoro Ellipta) vitamins A,C,I-usvm-btodrf 14,320 1 cap PO AMHS 04/20/20 09/23/20 unit-226 mg-200 unit capsule (PreserVision AREDS) metoprolol succinate 25 mg 12.5 mg PO HS 07/23/20 09/23/20 tablet,extended release 24 hr quetiapine 25 mg tablet (Seroquel) 25 mg PO HS 08/17/20 09/23/20 Previous Rx's Medication Instructions Recorded finasteride 5 mg tablet 5 mg PO HS #90 tab 03/19/19 Results & Data (ED) Vital Signs Vital Signs - 24 hr 09/23/20 11:13 09/23/20 11:15 09/23/20 11:31 Temperature 36.5 C Temperature Source Oral Pulse Rate 67 67 Pulse Rate [Apical] Pulse Rate [Left Finger] Pulse Rate from SpO2 Sensor 69 66 Pulse Rhythm Regular Pulse Rhythm [Apical] Pulse Rhythm [Left Finger] Pulse Strength Normal Pulse Strength [Apical] Pulse Strength [Left Finger] Respiratory Rate 17 17 34 H Respiratory Effort / Characteristics Non-Labored Respiratory Depth Normal Respiratory Pattern Regular Blood Pressure 97/53 L 97/53 L 130/81 Blood Pressure [Left Arm] Blood Pressure [Right Arm] Blood Pressure Mean 67 67 97 Blood Pressure Mean [Left Arm] Blood Pressure Mean [Right Arm] Blood Pressure Position Lying Blood Pressure Position [Left Arm] Blood Pressure Position [Right Arm] Pulse Oximetry 100 100 100 Oxygen Delivery Method Room Air Sepsis Recent Fever Within 48 Hours No Sepsis New/Unexplained Change in Mental Status No Sepsis Action Taken by Nursing No Action Required 09/23/20 12:01 09/23/20 12:30 09/23/20 12:35 Temperature Temperature Source Pulse Rate 67 66 Pulse Rate [Apical] Pulse Rate [Left Finger] Pulse Rate from SpO2 Sensor 69 66 Pulse Rhythm Regular Pulse Rhythm [Apical] Pulse Rhythm [Left Finger] Pulse Strength Pulse Strength [Apical] Pulse Strength [Left Finger] Respiratory Rate 25 H 19 Respiratory Effort / Characteristics Respiratory Depth Respiratory Pattern Blood Pressure 136/63 131/67 Blood Pressure [Left Arm] Blood Pressure [Right Arm] Blood Pressure Mean 87 88 Blood Pressure Mean [Left Arm] Blood Pressure Mean [Right Arm] Blood Pressure Position Blood Pressure Position [Left Arm] Blood Pressure Position [Right Arm] Pulse Oximetry 99 98 98 Oxygen Delivery Method Room Air Sepsis Recent Fever Within 48 Hours Sepsis New/Unexplained Change in Mental Status Sepsis Action Taken by Nursing 09/23/20 12:56 09/23/20 14:05 09/23/20 14:09 Temperature 36.5 C Temperature Source Oral Pulse Rate 75 65 Pulse Rate [Apical] Pulse Rate [Left Finger] 69 Pulse Rate from SpO2 Sensor 67 Pulse Rhythm Regular Pulse Rhythm [Apical] Pulse Rhythm [Left Finger] Regular Pulse Strength Normal Pulse Strength [Apical] Pulse Strength [Left Finger] Normal Respiratory Rate 21 20 19 Respiratory Effort / Characteristics Non-Labored Spontaneous Respiratory Depth Normal Respiratory Pattern Regular Blood Pressure 140/58 L 135/80 Blood Pressure [Left Arm] Blood Pressure [Right Arm] 135/80 Blood Pressure Mean 85 98 Blood Pressure Mean [Left Arm] Blood Pressure Mean [Right Arm] 98 Blood Pressure Position Lying Blood Pressure Position [Left Arm] Blood Pressure Position [Right Arm] Sitting Pulse Oximetry 100 100 99 Oxygen Delivery Method Room Air Sepsis Recent Fever Within 48 Hours Sepsis New/Unexplained Change in Mental Status Sepsis Action Taken by Nursing 09/23/20 14:14 09/23/20 14:25 09/23/20 14:26 Temperature 36.4 C L Temperature Source Oral Pulse Rate 64 62 Pulse Rate [Apical] Pulse Rate [Left Finger] 63 Pulse Rate from SpO2 Sensor Pulse Rhythm Regular Pulse Rhythm [Apical] Pulse Rhythm [Left Finger] Regular Pulse Strength Normal Pulse Strength [Apical] Pulse Strength [Left Finger] Normal Respiratory Rate 20 18 Respiratory Effort / Characteristics Non-Labored Spontaneous Respiratory Depth Normal Respiratory Pattern Regular Blood Pressure 145/53 H Blood Pressure [Left Arm] Blood Pressure [Right Arm] 145/53 H Blood Pressure Mean 83 Blood Pressure Mean [Left Arm] Blood Pressure Mean [Right Arm] 83 Blood Pressure Position Blood Pressure Position [Left Arm] Blood Pressure Position [Right Arm] Sitting Pulse Oximetry 100 100 Oxygen Delivery Method Room Air Sepsis Recent Fever Within 48 Hours Sepsis New/Unexplained Change in Mental Status Sepsis Action Taken by Nursing 09/23/20 14:35 09/23/20 14:41 Temperature 36.4 C L 36.4 C L Temperature Source Oral Oral Pulse Rate 66 Pulse Rate [Apical] 66 Pulse Rate [Left Finger] Pulse Rate from SpO2 Sensor Pulse Rhythm Regular Pulse Rhythm [Apical] Regular Pulse Rhythm [Left Finger] Pulse Strength Normal Pulse Strength [Apical] Normal Pulse Strength [Left Finger] Respiratory Rate 15 15 Respiratory Effort / Characteristics Non-Labored Spontaneous Respiratory Depth Normal Respiratory Pattern Regular Blood Pressure 147/66 H Blood Pressure [Left Arm] 154/68 H Blood Pressure [Right Arm] Blood Pressure Mean 93 Blood Pressure Mean [Left Arm] 96 Blood Pressure Mean [Right Arm] Blood Pressure Position Lying Blood Pressure Position [Left Arm] Semi-fowlers Blood Pressure Position [Right Arm] Pulse Oximetry 100 100 Oxygen Delivery Method Room Air Sepsis Recent Fever Within 48 Hours Sepsis New/Unexplained Change in Mental Status Sepsis Action Taken by Nursing Laboratory Data Result diagrams: 09/23/20 11:44 09/23/20 11:44 Lab Results 09/23/20 09/23/20 09/23/20 Range/Units 11:44 11:44 11:44 WBC 4.16 L (4.8-10.8) K/uL RBC 2.50 L (4.7-6.1) M/uL Hgb 7.8 L (14.0-18.0) g/dL Hct 23.7 L (42-52) % MCV 94.8 (80-100) fL MCH 31.2 (25-34) pg MCHC 32.9 (32-36) g/dL RDW Std Deviation 51.1 H (36.4-46.3) fL RDW Coeff of Leeanna 15.1 H (11.5-14.5) % Plt Count 39 L (130-400) K/uL Immature Gran % (Auto) 0.5 % Neut % (Auto) 78.6 % Lymph % (Auto) 11.5 % [place] % (Auto) 9.4 % Eos % (Auto) 0.0 % Baso % (Auto) 0.0 % Neut # (Auto) 3.27 (1.4-6.5) K/uL Lymph # (Auto) 0.48 L (1.2-3.4) K/uL [place] # (Auto) 0.39 (0.11-0.59) K/uL Eos # (Auto) 0.00 (0-0.5) K/uL Baso # (Auto) 0.00 (0-0.2) K/uL Immature Gran # (Auto) 0.02 (0.00-0.02) K/uL Absolute Nucleated RBC 0.09 H (0-0) K/uL Nucleated RBC % (auto) 2.1 % Giant Platelets 1+ Polychromasia 1+ Hypochromasia Present Anisocytosis Present Target Cells 1+ Echinocytes 1+ PT 11.4 (9.0-12.0) Seconds INR 1.1 (0.9-1.1) Sodium 137 (136-145) mmol/L Potassium 4.5 (3.5-5.1) mmol/L Chloride 107 (98-107) mmol/L Carbon Dioxide 20 L (21-32) mmol/L Anion Gap 10.0 (3-11) BUN 39 H (7-18) mg/dl Creatinine 1.97 H (0.6-1.4) mg/dl Est Cr Clr Drug Dosing 24.2 ml/min Est GFR ( Amer) 34.2 ml/min Est GFR (Non-Af Amer) 29.5 ml/min BUN/Creatinine Ratio 19.8 (10-20) Glucose 226 H (70-99) mg/dl Calcium 8.8 (8.5-10.1) mg/dl Total Bilirubin 0.9 (0.2-1) mg/dl AST 13 L (15-37) U/L ALT 14 (12-78) U/L Alkaline Phosphatase 74 (45-117) U/L Troponin I < 0.015 (0-0.045) ng/ml Total Protein 6.4 (6.4-8.2) gm/dl Albumin 3.3 L (3.4-5.0) gm/dl Globulin 3.1 (2.5-4.0) gm/dl Albumin/Globulin Ratio 1.1 (0.9-2) Blood Type Antibody Screen Crossmatch 09/23/20 Range/Units 14:08 WBC (4.8-10.8) K/uL RBC (4.7-6.1) M/uL Hgb (14.0-18.0) g/dL Hct (42-52) % MCV (80-100) fL MCH (25-34) pg MCHC (32-36) g/dL RDW Std Deviation (36.4-46.3) fL RDW Coeff of Leeanna (11.5-14.5) % Plt Count (130-400) K/uL Immature Gran % (Auto) % Neut % (Auto) % Lymph % (Auto) % [place] % (Auto) % Eos % (Auto) % Baso % (Auto) % Neut # (Auto) (1.4-6.5) K/uL Lymph # (Auto) (1.2-3.4) K/uL [place] # (Auto) (0.11-0.59) K/uL Eos # (Auto) (0-0.5) K/uL Baso # (Auto) (0-0.2) K/uL Immature Gran # (Auto) (0.00-0.02) K/uL Absolute Nucleated RBC (0-0) K/uL Nucleated RBC % (auto) % Giant Platelets Polychromasia Hypochromasia Anisocytosis Target Cells Echinocytes PT (9.0-12.0) Seconds INR (0.9-1.1) Sodium (136-145) mmol/L Potassium (3.5-5.1) mmol/L Chloride (98-107) mmol/L Carbon Dioxide (21-32) mmol/L Anion Gap (3-11) BUN (7-18) mg/dl Creatinine (0.6-1.4) mg/dl Est Cr Clr Drug Dosing ml/min Est GFR ( Amer) ml/min Est GFR (Non-Af Amer) ml/min BUN/Creatinine Ratio (10-20) Glucose (70-99) mg/dl Calcium (8.5-10.1) mg/dl Total Bilirubin (0.2-1) mg/dl AST (15-37) U/L ALT (12-78) U/L Alkaline Phosphatase (45-117) U/L Troponin I (0-0.045) ng/ml Total Protein (6.4-8.2) gm/dl Albumin (3.4-5.0) gm/dl Globulin (2.5-4.0) gm/dl Albumin/Globulin Ratio (0.9-2) Blood Type O Negative Antibody Screen NEGATIVE Crossmatch See Detail Administered Medications Discontinued Medications Sodium Chloride (Nss) 500 mls @ 999 mls/hr IV .Q31M BEBA Stop: 09/23/20 12:45 Last Admin: 09/23/20 12:50 Dose: 999 mls/hr Documented by: [id number] Cefoxitin Sodium 2,000 mg/ (Dextrose) 60 mls @ 100 mls/hr IV ONCE ONE Stop: 09/23/20 16:25 Last Admin: 09/23/20 15:15 Dose: 100 mls/hr Documented by: [id number] Imaging Data Radiologist's Impression: Cervical Spine CT 09/23/20 12:04 CT cervical spine wo con CT DOSE: 383.13 mGycm CLINICAL HISTORY: 89 years-old Male with fall. Acute neck pain status post fall COMPARISON: CT cervical spine 07/23/2020 TECHNIQUE: Multiple axial CT images of the cervical spine were obtained without contrast. A dose lowering technique was utilized adhering to the principles of ALARA. FINDINGS: Chronic appearing fractures of the right C1 facet is unchanged. 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 There is severe degeneration of the C1-C2 articulation with partial bony fusion. Unchanged alignment of the occipital atlantal articulation. There is severe multilevel intervertebral disc space narrowing and facet arthrosis with at least partial degenerative related bony fusion noted at C3-T1. Unchanged grade 1 anterolisthesis C4 on C5 and C5 on C6. No acute fracture or subluxation. Evaluation of the central canal and neuroforamina is better assessed by MRI. Multilevel neuroforaminal narrowing. No pneumothorax. No prevertebral edema. Calcified plaque of the carotid bulbs. IMPRESSION: 1. No acute fracture or subluxation. 2. 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 ACT 112: Negative or not required by law. The above report was generated using voice recognition software. It may contain grammatical, syntax or spelling errors. Electronically signed by: Conor Rivera M.D. 09/23/2020 1:22 PM Chest X-Ray 09/23/20 12:04 XR chest 1V portable CLINICAL HISTORY: Fall. COMPARISON STUDY: Chest CT July 23, 2020. FINDINGS: Lung volumes are normal. Lungs are clear. There is no pneumothorax or pleural effusion. Cardiac size is normal. Mediastinal contours are normal. There is no evidence for pulmonary edema. There are median sternotomy wires. Skinfold projects over the right chest. IMPRESSION: No acute cardiopulmonary findings. ACT 112: Negative or not required by law. Electronically signed by: Jabari Urias M.D. 09/23/2020 12:[address] 09/23/20 12:04 CT head/brain wo con CLINICAL HISTORY: 89 years-old Male with fall. Acute head injury status post fall. TECHNIQUE: Multiple axial CT images of the head were obtained without contrast. A dose lowering technique was utilized adhering to the principles of ALARA. CT DOSE: 638.56 mGycm COMPARISON: Head CT 07/24/2020 FINDINGS: No acute intracranial hemorrhage, midline shift, intracranial mass, hydr ocephalus, territorial ischemia or abnormal extra-axial collection. Age-related involutional changes with ex vacuo ventriculomegaly. Cerebral vascular calcifications. The calvarium is intact. Prior bilateral lens repair. The paranasal sinuses, mastoid air cells, and middle ear cavities are clear. IMPRESSION: No acute intracranial abnormality or calvarial fracture. ACT 112: Negative or not required by law. The above report was generated using voice recognition software. It may contain grammatical, syntax or spelling errors. Electronically signed by: Conor Rivera M.D. 09/23/2020 1:13 PM Abdomen/Pelvis CT 09/23/20 12:43 CT OF THE ABDOMEN AND PELVIS WITHOUT CONTRAST CLINICAL HISTORY: Fall. Left-sided pain. COMPARISON STUDY: CT of the abdomen and pelvis July 23, 2020. TECHNIQUE: Axial images of the abdomen and pelvis were obtained without IV contrast. Images were reviewed in the axial, sagittal, and coronal planes. Automated exposure control was utilized for the study. A dose lowering technique was utilized adhering to the principles of ALARA. FINDINGS: Please note that the chest CT will be reported separately. Note is made of multiple acute left lower rib fractures. There is an acute mildly displaced fracture of the lateral left 10th rib. There is also an acute nondisplaced fracture the posterior left 10th rib. Acute nondisplaced fracture of the posterior left 11th rib is noted. There is an acute nondisplaced fracture of the lateral left ninth rib. No pneumoperitoneum is present. Note is made of hyperdense clot adjacent to the spleen. Although suboptimally assessed on this unenhanced exam, there is a suspected splenic laceration that measures approximately 2.9 cm in length. Mild to moderate associated hemoperitoneum is present. There is also hyperdense clot within left upper quadrant adjacent to several bowel loops. This probably originates from the splenic laceration. There is hemorrhage within the pelvis, likely from the splenic laceration. Colonic diverticulosis is noted without evidence for acute diverticulitis. Perihepatic fluid also represents hemoperitoneum. There is no evidence for traumatic injury to the liver on this unenhanced exam. Unenhanced images of the adrenal glands and pancreas are unremarkable. There are small bilateral renal calculi. There are no ureteral]. Old L1 compression fracture is present. No acute lumbar spine or pelvic fracture is noted. IMPRESSION: 1. Mild to moderate hemoperitoneum, likely due to a splenic laceration, suboptimally assessed on this unenhanced CT. In addition, hyperdense clot within the upper quadrant adjacent to several bowel loops. This hemorrhage likely originates from the splenic laceration. Coexistent bowel injury could appear similar although is considered less likely. Close clinical follow-up is recommended. Findings discussed with Dr. Leon at time of dictation. 2. Multiple acute left lower rib fractures, as described above. ACT 112: Negative or not required by law. Electronically signed by: Jabari Urias M.D. 09/23/2020 1:[address] 09/23/20 12:43 CT chest diagnostic wo con CT DOSE: 950.09 mGycm CLINICAL HISTORY: 89 years-old Male with fall. Acute chest trauma status post fall TECHNIQUE: Multiaxial CT images of the chest were performed without contrast. A dose lowering technique was utilized adhering to the principles of ALARA. COMPARISON: CT abdomen and pelvis of same day, chest CT 07/23/2020 FINDINGS: Unremarkable thyroid. No adenopathy. 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 Extensive [place] coronary arterial and thoracic aortic calcifications. No pericardial effusion or mediastinal hematoma. Trace pleural effusions. Mild dependent subsegmental bibasilar atelectasis. No pneumothorax, pleural effusion, airspace consolidation or overt pulmonary edema. No definite suspicious pulmonary nodule. Unchanged indeterminate 4 mm solid nodule of the superior segment left lower lobe on image 110. The central airways are patent. Hemoperitoneum of the upper abdomen is noted adjacent to the liver and spleen. Partially imaged heterogeneity of the spleen. Tiny hiatal hernia. Small intramuscular hematomas are noted along the left lateral lower chest wall. Acute minimally displaced fracture of the lateral left ninth acute nondisplaced fractures involving the medial aspects of the left 10th and 11th ribs. There is an additional fracture involving the posterior aspect of the left 11th rib without significant no acute vertebral body fracture identified. IMPRESSION: 1. Acute left-sided rib fractures as above. Partially imaged hemoperitoneum of the upper abdomen. Please refer to the CT abdomen and pelvis study of same day for additional findings. 2. Trace pleural effusions. No pneumothorax. 3. Small acute intramuscular hematomas of the lateral lower left chest wall. 4. Chronic findings as above. ACT 112: Negative or not required by law. Electronically signed by: Conor Rivera M.D. 09/23/2020 1:39 PM Discharge Plan Visit Data Chief Complaint: Fall Stated Complaint: BACK & L FLANK PAIN, FALL ED Provider: Juvencio Leon Discharge Problem: Rupture of spleen, Fall, Multiple rib fractures Patient Disposition: Admitted As Inpatient Discharge Instructions Interventions: ED Discharge Assessment Last Done: 09/23/20 14:29 Discharge Problem: Fall Qualifiers: Encounter type: initial encounter Qualified Code(s): W19.XXXA - Unspecified fall, initial encounter Multiple rib fractures Qualifiers: Encounter type: initial encounter Fracture type: closed Laterality: left Qualified Code(s): S22.42XA - Multiple fractures of ribs, left side, initial encounter for closed fracture
[2020-09-23] MEDS ORDERED: SODIUM CHLORIDE 0.9% 500 ML IV SCH (12:15)
[2020-09-23 12:17] LABS: INR 1.1 (0.9-1.1); Prothrombin Time 11.4 Seconds (9.0-12.0)
[2020-09-23 12:19] LABS: Alanine Aminotransferase 14 U/L (12-78); Albumin Level 3.3 gm/dl (3.4-5.0); Aspartate Aminotransferase 13 U/L (15-37); BUN Creatinine Ratio 19.8 (10-20); Blood Urea Nitrogen 39 mg/dl (7-18); Calcium 8.8 mg/dl (8.5-10.1); Carbon Dioxide 20 mmol/L (21-32); Chloride 107 mmol/L (98-107); Creatinine Clr Calc Pharmacy 24.2 ml/min; Est GFR (African American) 34.2 ml/min; Est GFR (Non-African American) 29.5 ml/min; Glucose 226 mg/dl (70-99); Potassium 4.5 mmol/L (3.5-5.1); Sodium 137 mmol/L (136-145)
[2020-09-23 12:24] LABS: Albumin Globulin Ratio 1.1 (0.9-2); Alkaline Phosphatase 74 U/L (45-117); Bilirubin,Total 0.9 mg/dl (0.2-1); Globulin 3.1 gm/dl (2.5-4.0); Total Protein 6.4 gm/dl (6.4-8.2); Troponin I < 0.015 ng/ml (0-0.045)
--- NOTE | 2020-09-23 12:26 | XRay Report ---
XR chest 1V portable CLINICAL HISTORY: Fall. COMPARISON STUDY: Chest CT July 23, 2020. FINDINGS: Lung volumes are normal. Lungs are clear. There is no pneumothorax or pleural effusion. Car diac size is normal. Mediastinal contours are normal. There is no evidence for pulmonary edema. There are median sternotomy wires. Skinfold projects over the right chest. IMPRESSION: No acute cardiopulmonary findings. ACT 112: Negative or not required by law. Electronically signed by: Jabari Urias M.D. 09/23/2020 12:25 PM
[2020-09-23 13:05] LABS: Hematocrit (blood only) 23.7 % (42-52); Hemoglobin 7.8 g/dL (14.0-18.0); Mean Corpuscular Hemoglobin 31.2 pg (25-34); Mean Corpuscular Hgb Conc 32.9 g/dL (32-36); Mean Corpuscular Volume 94.8 fL (80-100); RDW Coefficient of Variation 15.1 % (11.5-14.5); RDW Standard Deviation 51.1 fL (36.4-46.3); White Blood Count 4.16 K/uL (4.8-10.8)
[2020-09-23 13:14] LABS: Nucleated RBC # (auto) 0.09 K/uL (0-0); Nucleated RBC % (auto) 2.1 %; Platelet Count 39 K/uL (130-400)
--- NOTE | 2020-09-23 13:15 | CT Scan Report ---
CT head/brain wo con CLINICAL HISTORY: 89 years-old Male with fall. Acute head injury status post fall. TECHNIQUE: Multiple axial CT images of the head were obtained without contrast. A dose lowering tech nique was utilized adhering to the principles of ALARA. CT DOSE: 638.56 mGycm COMPARISON: Head CT 07/24/2020 FINDINGS: No acute intracranial hemorrhage, midline shift, intracranial mass, hydrocephalus, territorial ischem ia or abnormal extra-axial collection. Age-related involutional changes with ex vacuo ventriculomegal y. Cerebral vascular calcifications. The calvarium is intact. Prior bilateral lens repair. The paranasal sinuses, mastoid air cells, and m iddle ear cavities are clear. IMPRESSION: No acute intracranial abnormality or calvarial fracture. ACT 112: Negative or not required by law. The above report was generated using voice recognition software. It may contain grammatical, syntax o r spelling errors. Electronically signed by: Conor Rivera M.D. 09/23/2020 1:13 PM
--- NOTE | 2020-09-23 13:24 | CT Scan Report ---
CT cervical spine wo con CT DOSE: 383.13 mGycm CLINICAL HISTORY: 89 years-old Male with fall. Acute neck pain status post fall COMPARISON: CT cervical spine 07/23/2020 TECHNIQUE: Multiple axial CT images of the cervical spine were obtained without contrast. A dose low ering technique was utilized adhering to the principles of ALARA. FINDINGS: Chronic appearing fractures of the right C1 facet is unchanged. There is a chronic ununited type II f racture of the odontoid without displacement which is unchanged from comparison. There is severe dege neration of the C1-C2 articulation with partial bony fusion. Unchanged alignment of the occipital gm antal articulation. There is severe multilevel intervertebral disc space narrowing and facet arthrosi s with at least partial degenerative related bony fusion noted at C3-T1. Unchanged grade 1 anterolist hesis C4 on C5 and C5 on C6. No acute fracture or subluxation. Evaluation of the central canal and ne uroforamina is better assessed by MRI. Multilevel neuroforaminal narrowing. No pneumothorax. No prevertebral edema. Calcified plaque of the carotid bulbs. IMPRESSION: 1. No acute fracture or subluxation. 2. 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 ACT 112: Negative or not required by law. The above report was generated using voice recognition software. It may contain grammatical, syntax o r spelling errors. Electronically signed by: Conor Rivera M.D. 09/23/2020 1:22 PM
--- NOTE | 2020-09-23 13:40 | CT Scan Report ---
CT chest diagnostic wo con CT DOSE: 950.09 mGycm CLINICAL HISTORY: 89 years-old Male with fall. Acute chest trauma status post fall TECHNIQUE: Multiaxial CT images of the chest were performed without contrast. A dose lowering techni que was utilized adhering to the principles of ALARA. COMPARISON: CT abdomen and pelvis of same day, chest CT 07/23/2020 FINDINGS: Unremarkable thyroid. No adenopathy. 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 Extensi ve [place] coronary arterial and thoracic aortic calcifications. No pericardial effusion or mediastina l hematoma. Trace pleural effusions. Mild dependent subsegmental bibasilar atelectasis. No pneumothorax, pleural effusion, airspace consolidation or overt pulmonary edema. No definite suspicious pulmonary nodule. U nchanged indeterminate 4 mm solid nodule of the superior segment left lower lobe on image 110. The ce ntral airways are patent. Hemoperitoneum of the upper abdomen is noted adjacent to the liver and spleen. Partially imaged heter ogeneity of the spleen. Tiny hiatal hernia. Small intramuscular hematomas are noted along the left la teral lower chest wall. Acute minimally displaced fracture of the lateral left ninth acute nondisplac ed fractures involving the medial aspects of the left 10th and 11th ribs. There is an additional frac ture involving the posterior aspect of the left 11th rib without significant no acute vertebral body fracture identified. IMPRESSION: 1. Acute left-sided rib fractures as above. Partially imaged hemoperitoneum of the upper abdomen. Ple ase refer to the CT abdomen and pelvis study of same day for additional findings. 2. Trace pleural effusions. No pneumothorax. 3. Small acute intramuscular hematomas of the lateral lower left chest wall. 4. Chronic findings as above. ACT 112: Negative or not required by law. Electronically signed by: Conor Rivera M.D. 09/23/2020 1:39 PM
[2020-09-23 13:42] LABS: Anisocytosis Present; Echinocytes 1+; Giant Platelets 1+; Hypochromasia Present; Immature Granulocytes # (auto) 0.02 K/uL (0.00-0.02); Immature Granulocytes % (auto) 0.5 %; Lymphocytes # (auto) 0.48 K/uL (1.2-3.4); Lymphocytes % (auto) 11.5 %; Monocytes # (auto) 0.39 K/uL (0.11-0.59); Monocytes % (auto) 9.4 %; Neutrophils # (auto) 3.27 K/uL (1.4-6.5); Neutrophils % (auto) 78.6 %; Polychromasia 1+; Target Cells 1+
[2020-09-23] MEDS ORDERED: SODIUM CHLORIDE 0.9% 250 ML IV PRN ×4 (13:43→18:58)
--- NOTE | 2020-09-23 13:48 | CT Scan Report ---
CT OF THE ABDOMEN AND PELVIS WITHOUT CONTRAST CLINICAL HISTORY: Fall. Left-sided pain. COMPARISON STUDY: CT of the abdomen and pelvis July 23, 2020. TECHNIQUE: Axial images of the abdomen and pelvis were obtained without IV contrast. Images were revi ewed in the axial, sagittal, and coronal planes. Automated exposure control was utilized for the rajendra dy. A dose lowering technique was utilized adhering to the principles of ALARA. FINDINGS: Please note that the chest CT will be reported separately. Note is made of multiple acute l eft lower rib fractures. There is an acute mildly displaced fracture of the lateral left 10th rib. Th ere is also an acute nondisplaced fracture the posterior left 10th rib. Acute nondisplaced fracture o f the posterior left 11th rib is noted. There is an acute nondisplaced fracture of the lateral left n inth rib. No pneumoperitoneum is present. Note is made of hyperdense clot adjacent to the spleen. Alt kwadwo suboptimally assessed on this unenhanced exam, there is a suspected splenic laceration that faye sures approximately 2.9 cm in length. Mild to moderate associated hemoperitoneum is present. There is also hyperdense clot within left upper quadrant adjacent to several bowel loops. This probably origi nates from the splenic laceration. There is hemorrhage within the pelvis, likely from the splenic lac eration. Colonic diverticulosis is noted without evidence for acute diverticulitis. Perihepatic fluid also represents hemoperitoneum. There is no evidence for traumatic injury to the liver on this unenh anced exam. Unenhanced images of the adrenal glands and pancreas are unremarkable. There are small bi lateral renal calculi. There are no ureteral]. Old L1 compression fracture is present. No acute lumba r spine or pelvic fracture is noted. IMPRESSION: 1. Mild to moderate hemoperitoneum, likely due to a splenic laceration, suboptimally assessed on this unenhanced CT. In addition, hyperdense clot within the upper quadrant adjacent to several bowel loop s. This hemorrhage likely originates from the splenic laceration. Coexistent bowel injury could appea r similar although is considered less likely. Close clinical follow-up is recommended. Findings discu ssed with Dr. Leon at time of dictation. 2. Multiple acute left lower rib fractures, as described above. ACT 112: Negative or not required by law. Electronically signed by: Jabari Urias M.D. 09/23/2020 1:46 PM
[2020-09-23] MEDS ORDERED: GELATIN SPONGE SZ 100 ONE (14:18)
[2020-09-23] MEDS ORDERED: THROMBIN FOR SOLN 20000 UNIT KIT ONE (14:18)
[2020-09-23] MEDS ORDERED: fentaNYL citrate 100 MCG/2 ML VIAL ONE ×2 (14:23)
--- NOTE | 2020-09-23 14:36 | History & Physical Report ---
Date of Service September 23, 2020 Assessment & Plan (1) Splenic laceration: Plan: Moderate hemoperitoneum, hypotensive. Will proceed with splenectomy. Transfusion PRBCs started in the ED, platelets ordered. Dr. Stephenpatient sustained a fall with some right fractured ribs and a ruptured spleen. He has been hypotensive in the emergency room the trauma center is hesitant to take him without a splenectomy because of its instability. He does have history of anemia and thrombocytopenia-which appears to be worsening with his bleeding-we will proceed as soon as possible to the operating room and then admit the patient to the intensive care unit History of Present Illness Primary Care Provider: Vinh Montano DO 89 y/o male fell at home this morning in his bathroom hitting his left side on the toilet. Came to ED c/o left chest pain. Found to have rib fractures and splenic laceration, became hypotensive in ER and unable to transport for trauma. Allergies Allergy/AdvReac Type Severity Reaction Status Date / Time cefuroxime Allergy Intermediate Hives Verified 09/23/20 14:08 Penicillins Allergy Mild Hives Verified 09/23/20 14:08 olanzapine AdvReac Unknown Hallucinations, Verified 09/23/20 14:08 confusion and panic Home Medications Medication Instructions Recorded Confirmed Type aspirin 81 mg tablet,delayed 81 mg PO QAM 01/29/18 09/23/20 History release atorvastatin 80 mg tablet 80 mg PO QAM 01/29/18 09/23/20 History mirabegron 25 mg tablet,extended 25 mg PO HS 01/29/18 09/23/20 History release 24 hr (Myrbetriq) pantoprazole 40 mg tablet,delayed 40 mg PO QAM 01/29/18 09/23/20 History release finasteride 5 mg tablet 5 mg PO HS #90 tab 03/19/19 09/23/20 Rx glipizide 5 mg tablet 10 mg PO QAM 03/28/20 09/23/20 History hydroxyzine HCl 10 mg tablet 10 mg PO DIRECTED PRN 03/28/20 09/23/20 History sertraline 100 mg tablet 100 mg PO QAM 03/28/20 09/23/20 History cyanocobalamin (vitamin B-12) 500 500 mcg PO QAM 04/20/20 09/23/20 History mcg tablet (Vitamin B-12) tamsulosin 0.4 mg capsule 0.4 mg PO HS 04/20/20 09/23/20 History thiamine HCl (vitamin B1) 100 mg 100 mg PO QAM 04/20/20 09/23/20 History tablet (Vitamin B-1) umeclidinium 62.5 mcg-vilanterol 1 puffs INH QAM 04/20/20 09/23/20 History 25 mcg/actuation powdr for inhalation (Anoro Ellipta) vitamins A,C,Y-prin-kwoczr 14,320 1 cap PO AMHS 04/20/20 09/23/20 History unit-226 mg-200 unit capsule (PreserVision AREDS) metoprolol succinate 25 mg 12.5 mg PO HS 07/23/20 09/23/20 History tablet,extended release 24 hr quetiapine 25 mg tablet (Seroquel) 25 mg PO HS 08/17/20 09/23/20 History 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, stage 4 (severe) Confusion COPD (chronic obstructive pulmonary disease) COVID-19 04/2020 Fall Gastric ulcer Gastritis and duodenitis Hematuria History of acute renal failure KIDNEY STONE BLOCKAGE 2 YR AGO/NO PROBLEMS SINCE History of kidney stones Hx of neck injury HX BROKEN NECK, 1 ST AND SECOND VERTEBRAE - 2 YRS AGO Hx of seasonal allergies Hydronephrosis Hyperlipidemia Hypertension Renal colic Restless leg syndrome Weakness Surgical History Hx of appendectomy Hx of cardiac catheterization BEFORE BYPASS SURGERY/BLOCKAGES Hx of colonoscopy 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 Family History Other Hypertension Social History Smoking Status: Former smoker Tobacco Type: Cigarettes Cigarettes Per Day: QUIT MANY MANY YEARS AGO; Second Hand Exposure: No; Hx Alcohol Use: No Hx Substance Use: No Preferred Language: Wolof Communication Ability: Effective Smalltalk Developer Required: No Beliefs That Will Affect Care: None marital status: / Current Living Situation: Family Current Living Situation Comment: Dasydeaer and son-in-law live with patient Feels Safe at Home: Yes Assistive Devices: Hearing Aid - Right Review of Systems Hematologic / Lymphatic: + problem reported (bone marrow disorder, nonspecified, recently diagnosed) Physical Exam Constitutional: well developed ENMT: Ears: + hearing impairment Respiratory: normal respiratory effort, lungs clear to auscultation Cardiovascular: RRR, no murmur, no edema Gastrointestinal (Abdomen): Percussion/Palpation: + abdomen tender (LUQ, left chest) and abdomen soft Skin: + ecchymosis (arms) Results & Data Results & Data ([facility]) Vital Signs (Past 12 Hours) Vital Signs Temp Pulse Resp BP Pulse Ox 09/23/20 14:14 64 09/23/20 14:09 36.5 C 65 19 135/80 99 09/23/20 12:35 66 98 09/23/20 11:31 34 H 130/81 100 09/23/20 11:15 67 17 97/53 L 100 09/23/20 11:13 36.5 C 67 17 97/53 L 100
--- NOTE | 2020-09-23 14:48 | Anesthesiology Consultation ---
Date of Service September 23, 2020 Assessment & Plan Chart Review Chart Review: Acceptable Risk for Surgery Consults Requested none History Surgery Operation Date: 09/23/20 08:35 Proposed Procedures p Splenectomy - Rashawn Stephen MD, FACS Height/Weight Height: 5 ft 9 in Weight: 65.9 kg Allergies Allergy/AdvReac Type Severity Reaction Status Date / Time cefuroxime Allergy Intermediate Hives Verified 09/23/20 14:08 Penicillins Allergy Mild Hives Verified 09/23/20 14:08 olanzapine AdvReac Unknown Hallucinations, Verified 09/23/20 14:08 confusion and panic Medications Home Medications Medication Instructions Recorded Confirmed Last Taken aspirin 81 mg tablet,delayed 81 mg PO QAM 01/29/18 09/23/20 09/22/20 release atorvastatin 80 mg tablet 80 mg PO QAM 01/29/18 09/23/20 09/22/20 mirabegron 25 mg tablet,extended 25 mg PO HS 01/29/18 09/23/20 09/22/20 release 24 hr (Myrbetriq) pantoprazole 40 mg tablet,delayed 40 mg PO QAM 01/29/18 09/23/20 09/22/20 release finasteride 5 mg tablet 5 mg PO HS #90 tab 03/19/19 09/23/20 09/22/20 glipizide 5 mg tablet 10 mg PO QAM 03/28/20 09/23/20 09/22/20 hydroxyzine HCl 10 mg tablet 10 mg PO DIRECTED PRN 03/28/20 09/23/20 07/23/20 sertraline 100 mg tablet 100 mg PO QAM 03/28/20 09/23/20 09/22/20 cyanocobalamin (vitamin B-12) 500 500 mcg PO QAM 04/20/20 09/23/20 09/22/20 mcg tablet (Vitamin B-12) tamsulosin 0.4 mg capsule 0.4 mg PO HS 04/20/20 09/23/20 09/22/20 thiamine HCl (vitamin B1) 100 mg 100 mg PO QAM 04/20/20 09/23/20 09/22/20 tablet (Vitamin B-1) umeclidinium 62.5 mcg-vilanterol 1 puffs INH QAM 02/08/21 07/14/21 07/13/21 25 mcg/actuation powdr for inhalation (Anoro Ellipta) vitamins A,C,J-tmok-fasnme 14,320 1 cap PO AMHS 04/20/20 09/23/20 09/22/20 unit-226 mg-200 unit capsule (PreserVision AREDS) metoprolol succinate 25 mg 12.5 mg PO HS 07/23/20 09/23/20 09/22/20 tablet,extended release 24 hr quetiapine 25 mg tablet (Seroquel) 25 mg PO HS 08/17/20 09/23/20 09/22/20 NPO Date Last Intake of Fluids: 09/22/20 Time Last Intake of Fluids: 20:00 Date Last Intake of Solids: 09/22/20 Time Last Intake of Solids: 20:00 Past Medical History Medical History Acid reflux CONTROLLED Acute bronchitis Anxiety and depression Atypical pneumonia AVM (arteriovenous malformation) of duodenum, acquired with hemorrhage BPH (benign prostatic hyperplasia) Cervical spine fracture 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, stage 4 (severe) Confusion COPD (chronic obstructive pulmonary disease) COVID-19 04/2020 Fall Gastric ulcer Gastritis and duodenitis Hematuria History of acute renal failure KIDNEY STONE BLOCKAGE 2 YR AGO/NO PROBLEMS SINCE History of kidney stones Hx of neck injury HX BROKEN NECK, 1 ST AND SECOND VERTEBRAE - 2 YRS AGO Hx of seasonal allergies Hydronephrosis Hyperlipidemia Hypertension Renal colic Restless leg syndrome Weakness Past Family History Family History Other Hypertension Past Surgical History Surgical History Hx of appendectomy Hx of cardiac catheterization BEFORE BYPASS SURGERY/BLOCKAGES Hx of colonoscopy 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 Social History Smoking Status: Former smoker tobacco type: cigarettes Smoking cigarettes per day: QUIT MANY MANY YEARS AGO Hx Alcohol Use: No Alcohol type: beer, wine and hard liquor alcohol intake frequency: holidays/special occasions only Hx Substance Use: No substance use type: does not use Last Used Substance Other:: 1 WEEK AGO/EDU PROVIDED Physical Exam Vital Signs Last Vital Signs Temp 36.4 C L 09/23/20 14:41 Pulse 66 09/23/20 14:41 Resp 15 09/23/20 14:41 BP 147/66 H 09/23/20 14:41 Pulse Ox 100 09/23/20 14:41 Testing Laboratory Results 09/23/20 11:44 09/23/20 11:44 PT 11.4 Seconds (9.0-12.0) 09/23/20 11:44 INR 1.1 (0.9-1.1) 09/23/20 11:44 Blood Type O Negative 09/23/20 14:08
[2020-09-23] MEDS ORDERED: HYDROmorphone INJ 2 MG/ML SYR/VIAL IV PRN (14:50)
[2020-09-23] MEDS ORDERED: ONDANSETRON INJ 2 MG/ML 2 ML VIAL IV PRN (14:50)
[2020-09-23] MEDS ORDERED: ePHEDrine sulfate 50 MG/ML AMP IV PRN (14:50)
[2020-09-23] MEDS ORDERED: fentaNYL citrate 100 MCG/2 ML VIAL IV PRN (14:50)
[2020-09-23] MEDS ORDERED: ATROPINE SULFATE 0.1 MG/ML 10ML SYR IV PRN (14:50)
[2020-09-23] MEDS ORDERED: cefOXitin 2,000 MG in DEXTROSE 5% 50 ML IV ONE (15:50)
[2020-09-23] MEDS ORDERED: FLOSEAL HEMOSTATIC MATRIX 10ML TOP ONE (15:52)
--- NOTE | 2020-09-23 16:08 | Post Operative Brief Note ---
PG Immediate Post Op with CF Date of Surgery September 23, 2020 Pre & Post Diagnosis Operation Date: 09/23/20 08:35 Pre-Op Diagnosis: Ruptured Spleen Post-Op Diagnosis: Ruptured Spleen I identified the patient and participated in the time-out.: Yes Procedure Operation Date: 09/23/20 08:35 Actual Procedures p Splenectomy(Not Applicable) - Rashawn Stephen MD, FACS Surgeon Rashawn Stephen MD, FACS Personnel Associate Rah Cameron Estimated Blood Loss 750 Findings Consistent with Post-Op Diagnosis Specimens Specimen Description: a. spleen Drains David-Muro Drain (19 fr round)
[2020-09-23] MEDS ORDERED: LIDOCAINE 2% 2 ML VIAL/AMP(20MG/ML) INFIL ONE (16:19)
[2020-09-23] MEDS ORDERED: PHENYLEPHRINE HCL 10 MG/ML VIAL ONE (16:19)
[2020-09-23] MEDS ORDERED: PHENYLEPHRINE 100MCG/ML 5ML SYR ONE (16:19)
[2020-09-23] MEDS ORDERED: ePHEDrine sulfate 50 MG/ML SYR ONE (16:19)
[2020-09-23] MEDS ORDERED: PROPOFOL IV EMULSION 10 MG/ML 20 ML VIAL IV ONE (16:19)
[2020-09-23] MEDS ORDERED: ROCURONIUM BROMIDE 10 MG/ML 5 ML VIAL IV ONE (16:19)
[2020-09-23] MEDS ORDERED: SUCCINYLCHOLINE CHLORIDE 20 MG/ML 10 ML VIAL IV ONE (16:39)
--- NOTE | 2020-09-23 16:42 | Anesthesiology Progress Note ---
Date of Service September 23, 2020 Anesthesia Post Procedure Vital Signs Vital Signs: Temp Pulse Pulse Pulse Resp BP BP 09/23/20 14:41 36.4 C L 66 15 147/66 H 09/23/20 14:35 36.4 C L 66 15 154/68 H 09/23/20 14:26 36.4 C L 62 18 145/53 H 09/23/20 14:25 63 20 09/23/20 14:14 64 09/23/20 14:09 36.5 C 65 19 135/80 09/23/20 14:05 69 20 09/23/20 12:56 75 21 140/58 L 09/23/20 12:35 66 09/23/20 12:30 19 131/67 09/23/20 12:01 67 25 H 136/63 09/23/20 11:31 34 H 130/81 09/23/20 11:15 67 17 97/53 L 09/23/20 11:13 36.5 C 67 17 97/53 L BP Pulse Ox 09/23/20 14:41 100 09/23/20 14:35 100 09/23/20 14:26 100 09/23/20 14:25 145/53 H 100 09/23/20 14:14 09/23/20 14:09 99 09/23/20 14:05 135/80 100 09/23/20 12:56 100 09/23/20 12:35 98 09/23/20 12:30 98 09/23/20 12:01 99 09/23/20 11:31 100 09/23/20 11:15 100 09/23/20 11:13 100 Transfer of Care Handoff Completed per policy Notes Patient Amnestic to Procedure: Yes Nausea / Vomiting: adequately controlled Pain: adequately controlled Airway Patency, RR, SpO2: stable & adequate BP & HR: stable & adequate Hydration State: stable & adequate Anesthetic Complications: no major complications apparent Notes: Pt had exploratory laparotomy, splenectomy under GA. VSS throughout. Not emerged. Transported to SICU with orotracheal tube in place, 3 peripheral IVs, right radial arterial line, Prakash catheter. VSS in SICU. +BLBS. For supportive care, mechanical ventilation. Further care as per surgeon and billet heater operator. Left in care of SICU staff.
[2020-09-23 17:07] LABS: INR 1.2 (0.9-1.1); Prothrombin Time 12.3 Seconds (9.0-12.0)
--- NOTE | 2020-09-23 17:12 | Critical Care Consultation ---
Date of Consultation September 23, 2020 Assessment & Plan (1) Splenic laceration: Reason Critically Ill: 89-year-old male status post mechanical fall with splenic laceration acute blood loss anemia PLAN: Neuro: Ambulatory dysfunction -Normally walks with walker Resp: Rib fractures left 10th and 11th -Proceeding with extubation will have aggressive pulmonary toileting CV: Coronary artery disease -Continue 81 mg aspirin and atorvastatin Fluids/Renal: Chronic kidney disease stage IV -Monitor urine output ID: Antibiotics per surgery GI/Nutrition: Postop day 0 exploratory laparotomy and status post splenectomy -Maintain n.p.o. Heme: Acute blood loss anemia -Received 2 units packed red blood cells and 1 unit platelets Pancytopenia DVT prophylaxis: SCDs Endocrine: ICU hyperglycemia protocol Vascular access: Peripheral IVs, radial arterial line Code Status: Full code Disposition: ICU I have personally spent 55 minutes of critical care time in the direct management of this patient. This is a life/limb threatening event. This includes time spent evaluating patient, direct bedside care, chart review, placing orders, interpretation of diagnostic studies, discussion with consultants, patient, and/or family members regarding treatment decisions, as well as other required patient management activities. This time is exclusive of all separately billable procedures, and teaching time and separate from and in addition to any other critical care service time. (2) Pancytopenia: (3) Fall: (4) ABLA (acute blood loss anemia): (5) Cervical spine fracture: (6) Chronic kidney disease, stage 4 (severe): (7) Ribs, multiple fractures: History of Present Illness Reason for Consultation: Postop day 0 status post splenectomy Requesting Physician: Rashawn Stephen MD, FACS Attending Physician: Rashawn Stephen MD, FACS History of Present Illness History is obtained from prior records secondary to patient being in a postoperative state. This is an 89-year-old male who had a mechanical fall onto his left side. 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 He was denied in transfer to the local trauma center and was taken urgently to the operating room for a splenectomy. Past medical history includes CABG x3 chronic kidney disease stage IV, COVID-19 status post recovery in April 2020, type 2 diabetes, chronic anemia, chronic cervical spine fracture, pancytopenia Allergies Allergy/AdvReac Type Severity Reaction Status Date / Time cefuroxime Allergy Intermediate Hives Verified 09/23/20 14:08 Penicillins Allergy Mild Hives Verified 09/23/20 14:08 olanzapine AdvReac Unknown Hallucinations, Verified 09/23/20 14:08 confusion and panic Home Medications Medication Instructions Recorded Confirmed Type aspirin 81 mg tablet,delayed 81 mg PO QAM 01/29/18 09/23/20 History release atorvastatin 80 mg tablet 80 mg PO QAM 01/29/18 09/23/20 History mirabegron 25 mg tablet,extended 25 mg PO HS 01/29/18 09/23/20 History release 24 hr (Myrbetriq) pantoprazole 40 mg tablet,delayed 40 mg PO QAM 01/29/18 09/23/20 History release finasteride 5 mg tablet 5 mg PO HS #90 tab 03/19/19 09/23/20 Rx glipizide 5 mg tablet 10 mg PO QAM 03/28/20 09/23/20 History hydroxyzine HCl 10 mg tablet 10 mg PO DIRECTED PRN 03/28/20 09/23/20 History sertraline 100 mg tablet 100 mg PO QAM 03/28/20 09/23/20 History cyanocobalamin (vitamin B-12) 500 500 mcg PO QAM 04/20/20 09/23/20 History mcg tablet (Vitamin B-12) tamsulosin 0.4 mg capsule 0.4 mg PO HS 04/20/20 09/23/20 History thiamine HCl (vitamin B1) 100 mg 100 mg PO QAM 04/20/20 09/23/20 History tablet (Vitamin B-1) umeclidinium 62.5 mcg-vilanterol 1 puffs INH QAM 04/20/20 09/23/20 History 25 mcg/actuation powdr for inhalation (Anoro Ellipta) vitamins A,C,O-kdgo-pieswd 14,320 1 cap PO AMHS 04/20/20 09/23/20 History unit-226 mg-200 unit capsule (PreserVision AREDS) metoprolol succinate 25 mg 12.5 mg PO HS 07/23/20 09/23/20 History tablet,extended release 24 hr quetiapine 25 mg tablet (Seroquel) 25 mg PO HS 08/17/20 09/23/20 History Patient History Medical History Acid reflux CONTROLLED Acute bronchitis Anxiety and depression Atypical pneumonia AVM (arteriovenous malformation) of duodenum, acquired with hemorrhage BPH (benign prostatic hyperplasia) Cervical spine fracture 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, stage 4 (severe) Confusion COPD (chronic obstructive pulmonary disease) COVID-19 04/2020 Fall Gastric ulcer Gastritis and duodenitis Hematuria History of acute renal failure KIDNEY STONE BLOCKAGE 2 YR AGO/NO PROBLEMS SINCE History of kidney stones Hx of neck injury HX BROKEN NECK, 1 ST AND SECOND VERTEBRAE - 2 YRS AGO Hx of seasonal allergies Hydronephrosis Hyperlipidemia Hypertension Renal colic Restless leg syndrome Weakness Surgical History Hx of appendectomy Hx of cardiac catheterization BEFORE BYPASS SURGERY/BLOCKAGES Hx of colonoscopy 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 Family History Other Hypertension Social History Smoking Status: Former smoker Tobacco Type: Cigarettes Cigarettes Per Day: QUIT MANY MANY YEARS AGO; Second Hand Exposure: No; Hx Alcohol Use: No Hx Substance Use: No Preferred Language: Uzbek Communication Ability: Effective Underwater Trapper Required: No Beliefs That Will Affect Care: None marital status: / Current Living Situation: Family Current Living Situation Comment: Daugher and son-in-law live with patient Feels Safe at Home: Yes Assistive Devices: Hearing Aid - Right Review of Systems Review of Systems: Unobtainable due to endotracheal tube Physical Exam Physical Exam: General: Sedated. nontoxic. Skin: Cool, dry, Head: Atraumatic Ears, nose, mouth and throat: airway obscured by endotracheal tube Cardiovascular: Normal peripheral perfusion Respiratory: no respiratory distress Gastrointestinal: Non distended, surgical dressing clean without shadowing Musculoskeletal: No deformity Results & Data Results & Data ([facility]) Vital Signs (Past 12 Hours) Vital Signs Temp Pulse Pulse Pulse Resp BP BP 09/23/20 16:49 34 C L 63 16 175/67 H 09/23/20 16:40 67 16 189/75 H 09/23/20 16:30 34.0 C L 63 16 153/57 H 09/23/20 14:41 36.4 C L 66 15 147/66 H 09/23/20 14:35 36.4 C L 66 15 154/68 H 09/23/20 14:26 36.4 C L 62 18 145/53 H 09/23/20 14:25 63 20 09/23/20 14:14 64 09/23/20 14:09 36.5 C 65 19 135/80 09/23/20 14:05 69 20 09/23/20 12:56 75 21 140/58 L 09/23/20 12:35 66 09/23/20 12:30 19 131/67 09/23/20 12:01 67 25 H 136/63 09/23/20 11:31 34 H 130/81 09/23/20 11:15 67 17 97/53 L 09/23/20 11:13 36.5 C 67 17 97/53 L BP BP Pulse Ox 09/23/20 16:49 179/60 H 100 09/23/20 16:40 180/59 H 100 09/23/20 16:30 100 09/23/20 14:41 100 09/23/20 14:35 100 09/23/20 14:26 100 09/23/20 14:25 145/53 H 100 09/23/20 14:14 09/23/20 14:09 99 09/23/20 14:05 135/80 100 09/23/20 12:56 100 09/23/20 12:35 98 09/23/20 12:30 98 09/23/20 12:01 99 09/23/20 11:31 100 09/23/20 11:15 100 09/23/20 11:13 100 Laboratory Results 09/23/20 09/23/20 09/23/20 Range/Units 16:49 14:08 11:44 WBC (4.8-10.8) K/uL RBC (4.7-6.1) M/uL Hgb (14.0-18.0) g/dL Hct (42-52) % MCV (80-100) fL MCH (25-34) pg MCHC (32-36) g/dL RDW Std Deviation (36.4-46.3) fL RDW Coeff of Leeanna (11.5-14.5) % Plt Count (130-400) K/uL Immature Gran % (Auto) % Neut % (Auto) % Lymph % (Auto) % [place] % (Auto) % Eos % (Auto) % Baso % (Auto) % Neut # (Auto) (1.4-6.5) K/uL Lymph # (Auto) (1.2-3.4) K/uL [place] # (Auto) (0.11-0.59) K/uL Eos # (Auto) (0-0.5) K/uL Baso # (Auto) (0-0.2) K/uL Immature Gran # (Auto) (0.00-0.02) K/uL Absolute Nucleated RBC (0-0) K/uL Nucleated RBC % (auto) % Giant Platelets Polychromasia Hypochromasia Anisocytosis Target Cells Echinocytes PT Pending 11.4 (9.0-12.0) Seconds INR Pending 1.1 (0.9-1.1) Sodium (136-145) mmol/L Potassium (3.5-5.1) mmol/L Chloride (98-107) mmol/L Carbon Dioxide (21-32) mmol/L Anion Gap (3-11) BUN (7-18) mg/dl Creatinine (0.6-1.4) mg/dl Est Cr Clr Drug Dosing ml/min Est GFR ( Amer) ml/min Est GFR (Non-Af Amer) ml/min BUN/Creatinine Ratio (10-20) Glucose (70-99) mg/dl Calcium (8.5-10.1) mg/dl Total Bilirubin (0.2-1) mg/dl AST (15-37) U/L ALT (12-78) U/L Alkaline Phosphatase (45-117) U/L Troponin I (0-0.045) ng/ml Total Protein (6.4-8.2) gm/dl Albumin (3.4-5.0) gm/dl Globulin (2.5-4.0) gm/dl Albumin/Globulin Ratio (0.9-2) Blood Type O Negative Antibody Screen NEGATIVE Crossmatch See Detail 09/23/20 09/23/20 Range/Units 11:44 11:44 WBC 4.16 L (4.8-10.8) K/uL RBC 2.50 L (4.7-6.1) M/uL Hgb 7.8 L (14.0-18.0) g/dL Hct 23.7 L (42-52) % MCV 94.8 (80-100) fL MCH 31.2 (25-34) pg MCHC 32.9 (32-36) g/dL RDW Std Deviation 51.1 H (36.4-46.3) fL RDW Coeff of Leeanna 15.1 H (11.5-14.5) % Plt Count 39 L (130-400) K/uL Immature Gran % (Auto) 0.5 % Neut % (Auto) 78.6 % Lymph % (Auto) 11.5 % [place] % (Auto) 9.4 % Eos % (Auto) 0.0 % Baso % (Auto) 0.0 % Neut # (Auto) 3.27 (1.4-6.5) K/uL Lymph # (Auto) 0.48 L (1.2-3.4) K/uL [place] # (Auto) 0.39 (0.11-0.59) K/uL Eos # (Auto) 0.00 (0-0.5) K/uL Baso # (Auto) 0.00 (0-0.2) K/uL Immature Gran # (Auto) 0.02 (0.00-0.02) K/uL Absolute Nucleated RBC 0.09 H (0-0) K/uL Nucleated RBC % (auto) 2.1 % Giant Platelets 1+ Polychromasia 1+ Hypochromasia Present Anisocytosis Present Target Cells 1+ Echinocytes 1+ PT (9.0-12.0) Seconds INR (0.9-1.1) Sodium 137 (136-145) mmol/L Potassium 4.5 (3.5-5.1) mmol/L Chloride 107 (98-107) mmol/L Carbon Dioxide 20 L (21-32) mmol/L Anion Gap 10.0 (3-11) BUN 39 H (7-18) mg/dl Creatinine 1.97 H (0.6-1.4) mg/dl Est Cr Clr Drug Dosing 24.2 ml/min Est GFR ( Amer) 34.2 ml/min Est GFR (Non-Af Amer) 29.5 ml/min BUN/Creatinine Ratio 19.8 (10-20) Glucose 226 H (70-99) mg/dl Calcium 8.8 (8.5-10.1) mg/dl Total Bilirubin 0.9 (0.2-1) mg/dl AST 13 L (15-37) U/L ALT 14 (12-78) U/L Alkaline Phosphatase 74 (45-117) U/L Troponin I < 0.015 (0-0.045) ng/ml Total Protein 6.4 (6.4-8.2) gm/dl Albumin 3.3 L (3.4-5.0) gm/dl Globulin 3.1 (2.5-4.0) gm/dl Albumin/Globulin Ratio 1.1 (0.9-2) Blood Type Antibody Screen Crossmatch Coding Level of Care Code Critical Care 1st 30-74 mins Diagnoses Splenic laceration S36.039A Pancytopenia D61.818 Fall W19.XXXA Encounter type: initial encounter ABLA (acute blood loss anemia) D62 Cervical spine fracture S12.9XXA Chronic kidney disease, stage 4 (severe) N18.4 Ribs, multiple fractures S22.49XA (1) Fall Encounter type: initial encounter Qualified Code(s): W19.XXXA - Unspecified fall, initial encounter
--- NOTE | 2020-09-23 17:12 | Electrocardiogram Report ---
Test Reason : Blood Pressure : / mmHG Vent. Rate : 067 BPM Atrial Rate : 067 BPM P-R Int : 164 ms QRS Dur : 110 ms QT Int : 474 ms P-R-T Axes : 076 053 249 degrees QTc Int : 500 ms Poor data quality, interpretation may be adversely affected Normal sinus rhythm Prolonged QT Abnormal ECG When compared with ECG of 25-JUL-2020 21:41, Criteria for Anterior infarct are no longer Present Confirmed by Krystian Bryant ([id number]) on 09/23/2020 5:12:22 PM Referred By: REFERRED SELF Confirmed By:Lui Bryant
[2020-09-23] MEDS ORDERED: PROMETHAZINE HCL 12.5 MG in SODIUM CHLORIDE 0.9% 50 ML IV PRN (17:37)
[2020-09-23] MEDS ORDERED: ACETAMINOPHEN 1,000 MG/100 ML VIAL IV ONE (17:37)
[2020-09-23] MEDS ORDERED: ICU PROTOCOL FOR HYPERGLYCEMIA PRN (17:37)
[2020-09-23 18:27] LABS: Partial Thromboplastin Ratio 1.2; Partial Thromboplastin Time 31.3 Seconds (21.0-31.0)
[2020-09-23] MEDS: SODIUM CHLORIDE 0.9% 1000ML 1,000 ML IV SCH (18:38)
[2020-09-23] MEDS: ONDANSETRON INJ 2 MG/ML 2 ML VIAL IV PRN (18:38)
[2020-09-23] MEDS: HYDROmorphone INJ 1 MG/ML SYRINGE IV PRN (18:38)
[2020-09-23 18:42] LABS: Echinocytes 2+; Hematocrit (blood only) 21.4 % (42-52); Hemoglobin 7.1 g/dL (14.0-18.0); Immature Granulocytes # (auto) 0.01 K/uL (0.00-0.02); Immature Granulocytes % (auto) 0.2 %; Lymphocytes # (auto) 1.37 K/uL (1.2-3.4); Lymphocytes % (auto) 27.1 %; Mean Corpuscular Hemoglobin 30.5 pg (25-34); Mean Corpuscular Hgb Conc 33.2 g/dL (32-36); Mean Corpuscular Volume 91.8 fL (80-100); Mean Platelet Volume 11.1 fL (7.4-10.4); Monocytes # (auto) 1.25 K/uL (0.11-0.59); Monocytes % (auto) 24.8 %; Neutrophils # (auto) 2.42 K/uL (1.4-6.5); Neutrophils % (auto) 47.9 %; Nucleated RBC # (auto) 0.74 K/uL (0-0); Nucleated RBC % (auto) 14.5 %; Platelet Count 70 K/uL (130-400); Platelet Estimate Decreased (Normal); RDW Coefficient of Variation 15.5 % (11.5-14.5); RDW Standard Deviation 51.8 fL (36.4-46.3); Red Blood Count 2.33 M/uL (4.7-6.1); White Blood Count 5.05 K/uL (4.8-10.8)
[2020-09-23 19:02] LABS: Albumin Level 2.2 gm/dl (3.4-5.0); BUN Creatinine Ratio 18.7 (10-20); Bilirubin,Total 0.7 mg/dl (0.2-1); Calcium 6.8 mg/dl (8.5-10.1); Creatinine Clr Calc Pharmacy 29.5 ml/min; Est GFR (Non-African American) 34.5 ml/min; Globulin 2.1 gm/dl (2.5-4.0); Magnesium 1.8 mg/dl (1.8-2.4); Phosphorus 3.3 mg/dl (2.5-4.9); Potassium 3.7 mmol/L (3.5-5.1); Total Protein 4.3 gm/dl (6.4-8.2)
--- NOTE | 2020-09-23 20:27 | Operative Report (OR) ---
DATE OF PROCEDURE: 09/23/2020 NAME OF OPERATION: Splenectomy. PREOPERATIVE DIAGNOSIS: Ruptured spleen. POSTOPERATIVE DIAGNOSIS: Ruptured spleen. STAFF SURGEON: Rashawn Stephen MD. MAINFRAME SYSTEMS ENGINEER: Alton Cameron PA-C. ANESTHESIA: General. DESCRIPTION OF PROCEDURE: The patient was brought in the operating room, placed on the operating tab le in a supine position. Pneumatic stockings, orogastric tube, and arterial line were placed. A Fol ey catheter was placed. His abdomen was prepped and draped in the usual fashion. My public services assistant helpe d with prepping, draping, removal of spleen and closure of the wound. Left subcostal incision was ma de, carrying dissection down into the abdomen encountering a significant amount of blood, approximate ly 100-200 mL of clot and then suctioned approximately 500 mL of blood. The spleen was brought up in to the field. It was bleeding significantly. The hilum was clamped using Tiki clamps and then the spleen removed. The clamps were then ligated using 2-0 and 3-0 Prolene suture. Then, packs were plac ed. Slowly the packs were removed. The bleeding appeared to be well controlled. We did place some FloSeal. We did place 1 or 2 extra sutures for some mild oozing. There was clot as the patient was thrombocytopenic. We placed a 19 round David-Muro drain in the left upper quadrant and secured to the skin using 3-0 nylon suture. The abdomen was irrigated. Fascia closed using running #1 PDS sut ure. The skin was reapproximated loosely with seble and then 1 inch Nu Gauze was placed between th e seble. Dressing applied and the patient was transferred to the intensive care unit in [facility] on the ventilator. Perioperatively, he did receive 2 units of blood and 1 pack of platelets. Job ID: [id number]
[2020-09-23 23:36] LABS: Calcium 7.5 mg/dl (8.5-10.1); Creatinine Clr Calc Pharmacy 24.8 ml/min; Est GFR (African American) 32.4 ml/min; Est GFR (Non-African American) 27.9 ml/min; Phosphorus 5.2 mg/dl (2.5-4.9); Potassium 4.8 mmol/L (3.5-5.1)
[2020-09-23 23:41] LABS: Hematocrit (blood only) 26.7 % (42-52); Hemoglobin 8.8 g/dL (14.0-18.0); Mean Corpuscular Hemoglobin 30.7 pg (25-34); Nucleated RBC # (auto) 1.98 K/uL (0-0); Nucleated RBC % (auto) 32.5 %; Platelet Count 78 K/uL (130-400); RDW Coefficient of Variation 15.1 % (11.5-14.5); RDW Standard Deviation 51.2 fL (36.4-46.3); Red Blood Count 2.87 M/uL (4.7-6.1)
[2020-09-24 00:26] LABS: ANC (manual) 3.85 K/uL (1.4-6.5); Echinocytes 1+; Hypochromasia Present; Myelocytes # (manual) 0.05 K/uL (0-0); Myelocytes % (manual) 0.9 %; Neutrophils # (manual) 3.85 K/uL (1.4-6.5); Neutrophils % (manual) 63.1 %; Ovalocytes 1+
[2020-09-24 03:13] LABS: Appearance Urine Clear (Clear); Bacteria Urine Automated Negative (Negative); Bilirubin Urine Negative (Negative); Blood Urine 1+ (Negative); Color Urine Yellow; Epithelial Cell Urine Auto 20-30 /lpf (0-5); Glucose Urine UA Negative (Negative); Ketones Urine Trace (Negative); Leukocyte Esterase Urine Negative (Negative); Nitrite Urine Negative (Negative); Protein Urine Trace (Negative); Specific Gravity Urine 1.023 (1.000-1.030); Urobilinogen Urine Negative (Negative)
[2020-09-24 03:39] LABS: Mean Corpuscular Hgb Conc 34.6 g/dL (32-36)
[2020-09-24 04:01] LABS: BUN Creatinine Ratio 18.6 (10-20); Calcium 7.4 mg/dl (8.5-10.1); Creatinine Clr Calc Pharmacy 26.1 ml/min; Est GFR (African American) 34.4 ml/min; Est GFR (Non-African American) 29.7 ml/min; Phosphorus 5.4 mg/dl (2.5-4.9); Potassium 4.7 mmol/L (3.5-5.1)
[2020-09-24 04:07] LABS: Hematocrit (blood only) 25.4 % (42-52); Hemoglobin 8.8 g/dL (14.0-18.0); Mean Corpuscular Hemoglobin 31.3 pg (25-34); Mean Corpuscular Volume 90.4 fL (80-100); Mean Platelet Volume 11.4 fL (7.4-10.4); Nucleated RBC # (auto) 2.65 K/uL (0-0); Nucleated RBC % (auto) 43.5 %; Platelet Count 79 K/uL (130-400); RDW Coefficient of Variation 15.4 % (11.5-14.5); RDW Standard Deviation 49.9 fL (36.4-46.3); Red Blood Count 2.81 M/uL (4.7-6.1); White Blood Count 6.08 K/uL (4.8-10.8)
[2020-09-24 04:10] LABS: Basophils # (auto) 0.01 K/uL (0-0.2); Basophils % (auto) 0.2 %; Giant Platelets 1+; Immature Granulocytes # (auto) 0.01 K/uL (0.00-0.02); Immature Granulocytes % (auto) 0.2 %; Lymphocytes # (auto) 0.84 K/uL (1.2-3.4); Lymphocytes % (auto) 13.8 %; Monocytes # (auto) 2.63 K/uL (0.11-0.59); Monocytes % (auto) 43.3 %; Neutrophils # (auto) 2.59 K/uL (1.4-6.5); Neutrophils % (auto) 42.5 %; Ovalocytes 1+
[2020-09-24] MEDS: HYDROmorphone INJ 0.5 MG/0.5 ML SYR IV PRN ×2 (05:07→13:14)
[2020-09-24] MEDS: SODIUM CHLORIDE 0.9% 1000ML 1,000 ML IV SCH (05:54)
--- NOTE | 2020-09-24 05:57 | Surgery Progress Note ---
Date of Service September 24, 2020 Assessment & Plan (1) H/O splenectomy: Plan: Patient is awake and responsive His vital signs are stable He received 1 unit of blood around 8 PM last night His hematocrit has been relatively stable since Platelet count 79,000 Would continue ICU monitoring today Add clear liquids, leave Prakash catheter Admission and Anticipated Discharge Date Admission Date: September 23, 2020 Results & Data ([facility]) Vital Signs (Past 12 Hours) Vital Signs Temp Pulse Resp BP Pulse Ox 09/24/20 03:01 37.2 C 88 14 141/60 H 98 09/24/20 02:01 37.0 C 84 13 117/68 99 09/24/20 01:01 36.9 C 89 14 130/60 98 09/24/20 00:01 36.8 C 84 16 132/55 L 98 09/24/20 00:00 83 09/23/20 23:01 36.7 C 83 13 126/56 L 98 09/23/20 22:15 36.7 C 85 14 137/63 99 09/23/20 22:01 36.7 C 81 9 L 132/56 L 97 09/23/20 21:47 36.7 C 83 12 129/59 L 97 09/23/20 20:47 36.7 C 82 12 123/56 L 97 09/23/20 20:37 36.7 C 83 12 124/55 L 98 09/23/20 20:17 36.6 C 85 12 124/49 L 98 09/23/20 20:02 36.4 C L 87 12 127/59 L 98 09/23/20 19:44 36.2 C L 85 16 101/30 L 09/23/20 18:15 66 PG Care Time/CCT Total # of Minutes Spent Total Time Spent with Patient: Total time spent is greater than 50% in coordination of care (as documented) at patient's floor/unit and/or counseling patient: Coding Level of Care Code None Diagnoses H/O splenectomy Z90.81
--- NOTE | 2020-09-24 06:01 | Critical Care Progress Note ---
Date of Service September 24, 2020 Assessment & Plan (1) H/O splenectomy: Plan: Reason Critically Ill: Christian is an 89-year-old male with a notable past medical history of coronary artery disease status post CABG, type 2 diabetes, CKD stage IV, chronic C-spine fracture, pancytopenia, and multiple falls who presented to [facility] for a mechanical fall, subsequently found to have acute blood loss anemia secondary to a splenic laceration. He underwent emergency splenectomy on 09/23 and remains in the ICU for intensive hemodynamic monitoring. PLAN: Neuro: * Patient with h/o ambulatory function requiring assistance with walker --> OOB today, ambulation ad mukesh Resp: * Patient with rib fractures on the 10th and 11th L ribs * Stable on respiratory exam today. Continue aggressive pulmonary toilet. CV: * Coronary artery disease: continue 81 mg aspirin and atorvastatin Fluids/Renal: * CKD IV: Continue Prakash, PO intake, monitoring UOP. ID: * Perioperative ABX managed by GI/Nutrition: Emergency Splenectomy with Ex-Lap * s/p mechanical fall at home with splenic laceration, ABLA * POD-1 at this point -- doing well -- minimal drain output * Did require a total of 3U pRBC and 1U platelets, latest on 09/23 at approx. 2000hr * Continue analgesia * ISBs ordered. SCDs. OOB today. * PT, OT ordered Heme: Acute Blood Loss Anemia * s/p total of 3U pRBC and 1U platelet - last 09/23 at 2000 * Monitor H&H * In context of known history of pancytopenia * DVT PPX: SCDs in bed. Ambulation today. Endocrine: * ICU hyperglycemia protocol Vascular access: Peripheral IVs, radial arterial line Thank you for allowing us to be part of this patient's care. Please refer to Dr. Irving's documentation for any further recommendations. (2) Rupture of spleen: (3) Fall: (4) Multiple rib fractures: (5) Ribs, multiple fractures: (6) Splenic laceration: (7) Pancytopenia: (8) ABLA (acute blood loss anemia): (9) Thrombocytopenia: (10) Non-ST elevation LA (NSTEMI): (11) Contusion of left chest wall: (12) Anxiety and depression: (13) Cervical spine fracture: (14) BPH (benign prostatic hyperplasia): (15) Chronic kidney disease, stage 4 (severe): (16) Hypertension: (17) S/P CABG (coronary artery bypass graft): Admission and Anticipated Discharge Date Admission Date: September 23, 2020 Supervising Physician Co-Signing Physician Notes Dr. Cabrera was resident physician during care of patient. I separately evaluated patient for hillman portions of the history and the exam. I was present during the critical portion of medical decision making, and I discussed the case with the resident. I generally agree with the findings and plan. Medicine consult pending, vaccine schedule deferred to medicine after discussion with surgery. Out of bed to chair and ambulatory trials. Aggressive incentive spirometry, no evidence of ongoing bleeding minimal drain output Subjective Christian did receive 1 unit of packed red blood cells yesterday evening. Hemoglobin subsequently returned at 8.8 this morning (from 7.1). He remained hemodynamically stable through the night. At the bedside, patient reports feeling well overall. Does endorse mild a bdominal cramping. No nausea or vomiting. No chest pain, palpitations, shortness of breath. He says he was able to get some sleep. Review of Systems Review of Systems: Constitutional: Denies chills Eyes: Denies double vision ENT: Denies ear pain, sore throat, sinus pain Cardiovascular: Denies Chest pain, chest pressure, palpitations, extremity swelling Respiratory: Denies shortness of breath, cough, sputum production, difficulty breathing Gastrointestinal: Denies nausea, vomiting, constipation, diarrhea Genitourinary: Denies urinary symptoms Musculoskeletal: Denies weakness, muscle aches/pain Integumentary: Denies rash, lesions, bruising Neurological: Denies headache, numbness, tingling, focal weakness Physical Exam Physical Exam: General: Somnolent, but overall well, appearing 89-year-old male who is lying back in his hospital bed, relaxed, upon my arrival. He is in no acute distress. HEENT: NCAT. Eyes - Sclera are white, anicteric, and without injection. Mouth - MMM with no tonsillar edema or exudates. Cardiac: Normal rate and regular rhythm; S1 and S2 present with grade 1/6 systolic ejection murmur best heard at the right upper sternal border. Otherwise, no rubs or gallops. Pulmonary: Good respiratory effort with symmetric expansion of the chest. No use of accessory muscles. Lungs were clear to auscultation bilaterally with no crackles or wheezes. Abdominal: Normoactive bowel sounds. Visual examination of the abdominal wall reveals a clean, dry, and intact bandage. The abdomen is nondistended. There is mild tenderness to palpation in the left upper quadrant. Extremities: Upper and lower extremities are warm and well perfused. Capillary refill assessed in UE was < 3 sec. Results & Data Results & Data ([facility]) Vital Signs (Past 12 Hours) Vital Signs Temp Pulse Resp BP Pulse Ox 09/24/20 03:01 37.2 C 88 14 141/60 H 98 09/24/20 02:01 37.0 C 84 13 117/68 99 09/24/20 01:01 36.9 C 89 14 130/60 98 09/24/20 00:01 36.8 C 84 16 132/55 L 98 09/24/20 00:00 83 09/23/20 23:01 36.7 C 83 13 126/56 L 98 09/23/20 22:15 36.7 C 85 14 137/63 99 09/23/20 22:01 36.7 C 81 9 L 132/56 L 97 09/23/20 21:47 36.7 C 83 12 129/59 L 97 09/23/20 20:47 36.7 C 82 12 123/56 L 97 09/23/20 20:37 36.7 C 83 12 124/55 L 98 09/23/20 20:17 36.6 C 85 12 124/49 L 98 09/23/20 20:02 36.4 C L 87 12 127/59 L 98 09/23/20 19:44 36.2 C L 85 16 101/30 L 09/23/20 18:15 66 Resident Activity Tracking Resident Involvement: Resident Care Provided Care Provided: Adult Hospital Medicine (1) BPH (benign prostatic hyperplasia) Lower urinary tract symptom presence: symptoms absent Qualified Code(s): N40.0 - Benign prostatic hyperplasia without lower urinary tract symptoms (2) Multiple rib fractures Encounter type: initial encounter Fracture type: closed Laterality: left Qualified Code(s): S22.42XA - Multiple fractures of ribs, left side, initial encounter for closed fracture (3) Contusion of left chest wall Encounter type: initial encounter Qualified Code(s): S20.212A - Contusion of left front wall of thorax, initial encounter (4) Hypertension Hypertension type: essential hypertension Qualified Code(s): I10 - Essential (primary) hypertension (5) Fall Encounter type: initial encounter Qualified Code(s): W19.XXXA - Unspecified fall, initial encounter
[2020-09-24] MEDS: HYDROmorphone INJ 1 MG/ML SYRINGE IV PRN (06:44)
--- NOTE | 2020-09-24 06:58 | Communication Note ---
Date of Service: September 24, 2020 Please reconsult hospitalist team once patient is transferred outside of the Intensive Care Unit.
--- NOTE | 2020-09-24 09:33 | Billing Data ---
Date of Service September 24, 2020 Coding Level of Care Code 61354 Subseq Hosp Care Lvl 3
[2020-09-24] MEDS ORDERED: PHARMACY GLYCEMIC MGMT CONSULT PRN (10:48)
[2020-09-24] MEDS ORDERED: INSULIN GLARGINE SOLOSTAR 100 UNITS/ML 3 ML PEN SC STA (10:49)
[2020-09-24] MEDS: PANTOprazole 40 MG TAB PO SCH (11:42)
--- NOTE | 2020-09-24 11:45 | Pharmacy Report ---
Pharmacy Glycemic Short Note 2 - Date of Service September 24, 2020 - Glycemic Short BSG Results (Last 24 hours): 09/23/20 09/23/20 09/23/20 11:44 18:06 23:11 Glucose 226 H 179 H 187 H POC Glucose 09/24/20 09/24/20 03:32 06:03 Glucose 161 H POC Glucose 188 H OUTPATIENT ANTIDIABETIC REGIMEN: * Glipizide 10mg PO daily * A1c = 8.2% 05/20/20 ASSESSMENT: * Type 2 diabetic admitted for splenic rupture s/p fall * He is now POD #1 s/p splenectomy * Will initiate basal/bolus SQ regimen based upon weight. Initial Lantus doses will be based upon "mild stress" given age, clear liquid diet and underlying renal insuff - in order to avoid prolonged hypoglycemia. Novolog CF/CR will be based upon "moderate" stress level. PLAN FOR INPATIENT GLYCEMIC CONTROL: * Hold outpatient oral diabetes medications (glipizide) * Check A1c (last checked > 3 mo ago) * Basal insulin * Lantus 10 units SQ x 1 then 7 units SQ BID * Bolus insulin * NovoLog per scale ACHS or Q6hrs while NPO * Goal Range: Low 110 mg/dL - High 140 mg/dL * Correction Factor: 30 mg/dL/unit * Nutritional / Prandial insulin per carb ratio of 1 unit per 10 grams CHO consumed PLAN FOR DISCHARGE: * to be determined
[2020-09-24] MEDS: oxyCODONE HCL IR 5 MG TAB (IMMEDIATE RELEASE) PO PRN ×3 (11:48→22:49)
[2020-09-24] MEDS: INSULIN ASPART 100 UNITS/ML 3 ML PEN SC SCH ×3 (12:00→20:47)
[2020-09-24 12:05] LABS: Giant Platelets 1+; Polychromasia 3+
[2020-09-24 12:06] LABS: Anisocytosis Present
[2020-09-24 12:17] LABS: Estimated Average Glucose 140 mg/dl; Hemoglobin A1C 6.5 % (4.5-5.6)
--- NOTE | 2020-09-24 13:34 | Communication Note ---
Date of Service: September 24, 2020 I have directly contacted Christian's primary care physician regarding recent splenectomy and his need for asplenia-indicated immunizations within 14 days of discharge.
[2020-09-24] MEDS ORDERED: GLUCOSE 10 TABS/TUBE PO PRN (15:00)
[2020-09-24] MEDS ORDERED: DEXTROSE 50% 50 ML SYRINGE IV PRN (15:00)
[2020-09-24] MEDS ORDERED: CARBOHYDRATES FOR HYPOGLYCEMIA PO PRN (15:00)
[2020-09-24] MEDS ORDERED: GLUCAGON FOR INJ 1 MG VIAL IM PRN (15:00)
[2020-09-24] MEDS ORDERED: GLUCOSE 40% GEL 15 GM TUBE PO PRN (15:00)
[2020-09-24] MEDS: INSULIN GLARGINE SOLOSTAR 100 UNITS/ML 3 ML PEN SC SCH (20:49)
[2020-09-25] MEDS ORDERED: INSULIN ASPART 100 UNITS/ML 3 ML PEN SC ONE (02:00)
[2020-09-25] MEDS: HYDROmorphone INJ 0.5 MG/0.5 ML SYR IV PRN (02:17)
[2020-09-25] MEDS: oxyCODONE HCL IR 5 MG TAB (IMMEDIATE RELEASE) PO PRN ×2 (08:05→20:57)
[2020-09-25] MEDS: PANTOprazole 40 MG TAB PO SCH (08:07)
[2020-09-25] MEDS: ONDANSETRON INJ 2 MG/ML 2 ML VIAL IV PRN (08:07)
--- NOTE | 2020-09-25 08:46 | Surgery Progress Note ---
Date of Service September 25, 2020 Assessment & Plan (1) H/O splenectomy: Plan: Appears to be stable with no active bleeding Drain does have some serosanguineous drainage but appears to be minimal A.m. labs are pending We will DC his Prakash catheter Advance to full liquids Post splenectomy vaccines per medical team Patient on Eliquis preop-discussed possible anticoagulation if blood count stable Admission and Anticipated Discharge Date Admission Date: September 23, 2020 Results & Data ([facility]) Vital Signs (Past 12 Hours) Vital Signs Temp Pulse Resp BP Pulse Ox 09/25/20 07:31 36.7 C 89 16 126/54 L 93 09/25/20 02:21 36.8 C 91 H 16 117/55 L 93 09/24/20 22:15 36.7 C 90 16 113/53 L 94 PG Care Time/CCT Total # of Minutes Spent Total Time Spent with Patient: Total time spent is greater than 50% in coordination of care (as documented) at patient's floor/unit and/or counseling patient: Coding Level of Care Code None Diagnoses H/O splenectomy Z90.81
[2020-09-25] MEDS: INSULIN GLARGINE SOLOSTAR 100 UNITS/ML 3 ML PEN SC SCH ×2 (09:19→20:53)
[2020-09-25] MEDS: INSULIN ASPART 100 UNITS/ML 3 ML PEN SC SCH ×4 (09:22→20:54)
[2020-09-25 09:50] LABS: Albumin Level 2.5 gm/dl (3.4-5.0); BUN Creatinine Ratio 18.7 (10-20); Calcium 8.2 mg/dl (8.5-10.1); Creatinine Clr Calc Pharmacy 30.6 ml/min; Est GFR (African American) 41.7 ml/min; Hematocrit (blood only) 25.6 % (42-52); Hemoglobin 8.2 g/dL (14.0-18.0); Mean Corpuscular Hemoglobin 30.9 pg (25-34); Mean Corpuscular Volume 96.6 fL (80-100); Mean Platelet Volume 12.6 fL (7.4-10.4); Nucleated RBC % (auto) 43.6 %; Platelet Count 110 K/uL (130-400); Potassium 4.2 mmol/L (3.5-5.1); RDW Standard Deviation 54.9 fL (36.4-46.3); Red Blood Count 2.65 M/uL (4.7-6.1); White Blood Count 7.57 K/uL (4.8-10.8)
[2020-09-25 09:59] LABS: Albumin Globulin Ratio 0.8 (0.9-2); Bilirubin,Total 0.6 mg/dl (0.2-1); Globulin 3.2 gm/dl (2.5-4.0); Phosphorus 2.8 mg/dl (2.5-4.9); Total Protein 5.7 gm/dl (6.4-8.2)
--- NOTE | 2020-09-25 10:02 | Medical Student Progress Note ---
Date of Service September 25, 2020 Assessment & Plan (1) Rupture of spleen: Plan: Patient is a 89-year-old male with a notable past medical history of CAD s/p CABG, type 2 diabetes, CKD stage IV, chronic C-spine fracture, pancytopenia, and multiple falls who presented after a mechanical fall, subsequently found to have acute blood loss anemia secondary to a splenic laceration and rib fractures. He is s/p splenectomy. Acute blood loss anemia secondary to splenic laceration - secondary to splenic laceration/ splenectomy and in the setting of chronic pancytopenia - received 4u pRBS - monitor H&H Splenectomy - mechanical fall at home with splenic laceration requiring emergency splenectomy - s/p splenectomy - pain control: hydromorphone 1mg Q3hr PRN, 0.5 1mg Q3hr PRN, oxycodone 5-10mg Q4hr PRN - Will require Hib and meningococcal vaccinations. Zoster vaccine also recommended. Verify that he is up-to-date on Tdap. He received pneumococcal 13 in 2016. Had Pneumovax 23 greater than 10 years ago, but after age 67. He should be naturally immune to MMRV based on his age (born before 1955). Does not appear to need varicella vaccine since born after 1977, but immunity could be verified. Rib fractures - caused by mechanical fall - Chest CT- fractures of left ribs 9, 10, 11 - pain control (see above) Diabetes - Pancytopenia - chronic pancytopenia Hypertension/ CAD -atorvastatin, asprin, metoprolol Dispo: med/surg DVT ppx: Heparin 5,000u SQ Q12 Diet: Full liquid Code: Full Code Admission and Anticipated Discharge Date Admission Date: September 23, 2020 Supervising Attestation I independently saw the patient and completed a history and physical exa mination. I also reviewed the case with the medical student. 89-year-old male well-known to me through the outpatient office, status post splenectomy secondary to splenic laceration suffered in a fall in his bathroom. Unfortunately, he has had multiple falls over the past few years with rather significant orthopedic injuries. He had been anticoagulated previously but this had been stopped due to his recurrent falls. This morning upon my first exam, he was alert and oriented. His speech was slowed, and he actually recognize and commented that his speech was slowed. However, he was oriented and his speech was very clear otherwise. Later this afternoon, I was called back to see the patient as his respiration rate had slowed to 8/min. He had just received a dose of Dilaudid. Fortunate ly, pulse oximetry was 90% on 2 L/min via nasal cannula. The patient would open his eyes to my voice and answer questions appropriately, although would quickly nod off once the conversation was stopped. Exam 165/79, 96, 16, 37.1, 98% on nasal cannula Repeat exam respirations 8/min with pulse oximetry 97 to 98%, 2 L/min on oxygen mask As noted above, alert and oriented upon initial exam. Sleepy but responsive upon reexamination Heart regular rate and rhythm. Lungs clear Significant chest wall tenderness with palpation. Data Hemoglobin 8.2, platelet count 110 BUN 31, creatinine 1.67 Impression and plan Status post splenectomy secondary to splenic laceration Acute blood loss anemia secondary to splenic laceration History of anemia and thrombocytopenia secondary to suspected myelosuppression Monitor CBC Rib fractures Pain control, although we will need to adjust medications in light of somnolence this afternoon Somnolence secondary to opioid medications As long as he maintains respirations greater than 8/min and a pulse oximetry greater than 95%, will observe If he fails to meet these parameters, will administer diluted Narcan to achieve partial reversal (but not precipitate acute pain crises) This was discussed with nursing staff at bedside, family, and pharmacy Preventive 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 He endorses rib and abdominal pain. Also endorses confusion. Does not have an appetite. Denies SOB, chest pain, palpitations, or dizziness. Review of Systems Review of Systems: All systems reviewed & are unremarkable except as noted in Subjective Physical Exam Physical Exam: GENERAL: nad HEENT: conjunctiva without injection b/l, dry mucous membranes, external nose and pinna are normal CHEST: cta bilaterally with no wheezes, rhonchi or rales, normal respiratory effort CARDIOVASCULAR: heart regular rate and rhythm, no murmurs, gallops or rubs, no lower extremity edema ABD: drain in place draining a small amount of serosanguineous fluid, normal active bowel sounds SKIN: no rashes or suspicious lesions noted NEURO: PERRLA Results & Data ([facility]) Vital Signs (Past 12 Hours) Vital Signs Temp Pulse Resp BP Pulse Ox 09/25/20 07:31 36.7 C 89 16 126/54 L 93 09/25/20 02:21 36.8 C 91 H 16 117/55 L 93 09/24/20 22:15 36.7 C 90 16 113/53 L 94
[2020-09-25 10:27] LABS: Giant Platelets 2+; Hypogranular Neutrophils 1+; Polychromasia 1+
[2020-09-25 10:28] LABS: ALC (manual) 1.85 K/uL (1.2-3.4); ANC (manual) 3.87 K/uL (1.4-6.5); Eosinophils # (manual) 0.24 K/uL (0-0.5); Eosinophils % (manual) 3.2 %; Lymphocytes # (manual) 1.85 K/uL (1.2-3.4); Lymphocytes % (manual) 24.5 %; Monocytes # (manual) 1.29 K/uL (0.11-0.59); Myelocytes # (manual) 0.16 K/uL (0-0); Myelocytes % (manual) 2.1 %; Neutrophils # (manual) 3.87 K/uL (1.4-6.5); Neutrophils % (manual) 51.1 %; Other Cell Type % 2.1 %; Other Cells # (manual) 0.16 K/uL (0-0)
--- NOTE | 2020-09-25 10:34 | Pharmacy Report ---
Pharmacy Glycemic Short Note 2 - Date of Service September 25, 2020 - Glycemic Short BSG Results (Last 24 hours): 09/24/20 09/24/20 09/24/20 11:44 16:49 20:33 Glucose POC Glucose 204 H 200 H 202 H 09/25/20 09/25/20 09/25/20 02:12 08:25 08:38 Glucose 127 H POC Glucose 142 H 126 H OUTPATIENT ANTIDIABETIC REGIMEN: * Glipizide 10mg PO daily * A1c = 6.5% (09/24/20) ASSESSMENT: 09/25: * Christian received a total of 26 units of insulin yesterday * 17 units basal + 9 units bolus * BSGs were uncontrolled: [phone] mg/dL * Fasting BSG was well controlled at 126 mg/dL this AM * Continue with current basal regimen - patient's appetite remains poor despite being advanced to full liquids. Will continue to monitor PO intake and adjust insulin regimen as necessary. 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 Initial Lantus doses will be based upon "mild stress" given age, clear liquid diet and underlying renal insuff - in order to avoid prolonged hypoglycemia. Novolog CF/CR will be based upon "moderate" stress level. PLAN FOR INPATIENT GLYCEMIC CONTROL: * Hold outpatient oral diabetes medications * Basal insulin * Lantus 10 units SQ x 1 then 7 units SQ BID * Bolus insulin * NovoLog per scale ACHS or Q6hrs while NPO * Goal Range: Low 110 mg/dL - High 140 mg/dL * Correction Factor: 30 mg/dL/unit * Nutritional / Prandial insulin per carb ratio of 1 unit per 10 grams CHO consumed PLAN FOR DISCHARGE: * HbA1c was 6.5% from this admission which is at goal for this patient. * Continue Glipizide 10 mg PO daily upon discharge as long as patient is not experiencing any hypoglycemia.
[2020-09-25] MEDS: HYDROmorphone INJ 1 MG/ML SYRINGE IV PRN (12:29)
[2020-09-25] MEDS ORDERED: NALOXONE HCL IV PRN (14:43)
[2020-09-25] MEDS: SODIUM CHLORIDE 0.9% 1000ML 1,000 ML IV SCH (17:12)
[2020-09-25] MEDS: HEPARIN SOD 5,000 UNIT/0.5 ML VIAL SQ SCH (20:53)
[2020-09-26] MEDS: SODIUM CHLORIDE 0.9% 1000ML 1,000 ML IV SCH ×2 (03:42→16:51)
[2020-09-26 07:08] LABS: Mean Corpuscular Hgb Conc 31.9 g/dL (32-36); Mean Platelet Volume 11.8 fL (7.4-10.4); Platelet Count 110 K/uL (130-400)
[2020-09-26 07:32] LABS: BUN Creatinine Ratio 19.5 (10-20); Calcium 8.1 mg/dl (8.5-10.1); Creatinine Clr Calc Pharmacy 39.3 ml/min; Est GFR (African American) 56.5 ml/min; Est GFR (Non-African American) 48.7 ml/min
[2020-09-26 07:42] LABS: Hematocrit (blood only) 23.5 % (42-52); Hemoglobin 7.5 g/dL (14.0-18.0); Mean Corpuscular Hemoglobin 30.6 pg (25-34); Mean Corpuscular Volume 95.9 fL (80-100); RDW Coefficient of Variation 15.6 % (11.5-14.5); RDW Standard Deviation 53.8 fL (36.4-46.3); Red Blood Count 2.45 M/uL (4.7-6.1); White Blood Count 7.43 K/uL (4.8-10.8)
[2020-09-26 07:43] LABS: ALC (manual) 2.05 K/uL (1.2-3.4); ANC (manual) 4.25 K/uL (1.4-6.5); Blast # (manual) 0.14 K/uL (0-0); Blast Cells % (manual) 1.9 %; Giant Platelets 1+; Lymphocytes # (manual) 2.05 K/uL (1.2-3.4); Lymphocytes % (manual) 27.6 %; Monocytes # (manual) 0.99 K/uL (0.11-0.59); Monocytes % (manual) 13.3 %; Neutrophils # (manual) 4.25 K/uL (1.4-6.5); Neutrophils % (manual) 57.2 %; Polychromasia 1+
[2020-09-26 07:54] LABS: Nucleated RBC # (auto) 2.91 K/uL (0-0); Nucleated RBC % (auto) 39.1 %
--- NOTE | 2020-09-26 09:35 | Surgery Progress Note ---
Date of Service September 26, 2020 Assessment & Plan (1) Rupture of spleen: Plan: s/p splenectomy. Will advance diet. H/H drifting lower - defer blood transfusion to medicine team JOSE L in place Very weak - discussed working with PT to get his strength back Will add PO tylenol for pain control as another option. (2) H/O splenectomy: (3) Multiple rib fractures: Plan: Persistent pain. Encourage deep breathing PT Admission and Anticipated Discharge Date Admission Date: September 23, 2020 Subjective Feels very weak. Complaining of pain at incision and in abdomen. Sitting in chair but was a three person assist to get from bed to chair. Pain meds help with pain but make him sleepy. No nausea. Tolerating full liquid diet but minimal appetite. Physical Exam Constitutional: WD/WN, vitals as above Respiratory: no respiratory distress and no labored breathing Cardiovascular: RRR, no murmur, no edema Gastrointestinal (Abdomen): Inspection/Auscultation: normal bowel sounds, + abdominal surgical incision (clean and intact) and + abdominal surgical drain present (bloody tinged, 5 cc output); abdomen not distended Percussion/Palpation: + abdomen tender and abdomen soft Neurologic: awake; no focal motor deficits Results & Data ([facility]) Vital Signs (Past 12 Hours) Vital Signs Temp Pulse Resp BP BP Pulse Ox 09/26/20 08:26 36.4 C L 87 16 135/61 95 09/25/20 22:19 37.1 C 93 H 16 147/66 H 96 Laboratory Results Abnormal lab results 09/25/20 09/25/20 09/25/20 Range/Units 08:38 08:38 12:18 RBC 2.65 L (4.7-6.1) M/uL Hgb 8.2 L (14.0-18.0) g/dL Hct 25.6 L (42-52) % MCHC (32-36) g/dL RDW Std Deviation 54.9 H (36.4-46.3) fL RDW Coeff of Leeanna 16.0 H (11.5-14.5) % Plt Count 110 L (130-400) K/uL MPV 12.6 H (7.4-10.4) fL Absolute Nucleated RBC 3.30 H (0-0) K/uL Monocytes # (Manual) 1.29 H (0.11-0.59) K/uL Myelocytes # (Manual) 0.16 H (0-0) K/uL Blast Cells # (Man) (0-0) K/uL Other Cells # 0.16 H (0-0) K/uL Chloride 112 H (98-107) mmol/L BUN 31 H (7-18) mg/dl Creatinine 1.67 H (0.6-1.4) mg/dl Glucose 127 H (70-99) mg/dl POC Glucose 148 H (70-99) mg/dl Calcium 8.2 L (8.5-10.1) mg/dl AST 14 L (15-37) U/L Total Protein 5.7 L D (6.4-8.2) gm/dl Albumin 2.5 L (3.4-5.0) gm/dl Albumin/Globulin Ratio 0.8 L (0.9-2) 09/25/20 09/25/20 09/26/20 Range/Units 17:17 20:37 06:30 RBC 2.45 L (4.7-6.1) M/uL Hgb 7.5 L (14.0-18.0) g/dL Hct 23.5 L (42-52) % MCHC 31.9 L (32-36) g/dL RDW Std Deviation 53.8 H (36.4-46.3) fL RDW Coeff of Leeanna 15.6 H (11.5-14.5) % Plt Count 110 L (130-400) K/uL MPV 11.8 H (7.4-10.4) fL Absolute Nucleated RBC 2.91 H (0-0) K/uL Monocytes # (Manual) 0.99 H (0.11-0.59) K/uL Myelocytes # (Manual) (0-0) K/uL Blast Cells # (Man) 0.14 H (0-0) K/uL Other Cells # (0-0) K/uL Chloride (98-107) mmol/L BUN (7-18) mg/dl Creatinine (0.6-1.4) mg/dl Glucose (70-99) mg/dl POC Glucose 142 H 133 H (70-99) mg/dl Calcium (8.5-10.1) mg/dl AST (15-37) U/L Total Protein (6.4-8.2) gm/dl Albumin (3.4-5.0) gm/dl Albumin/Globulin Ratio (0.9-2) 09/26/20 Range/Units 06:30 RBC (4.7-6.1) M/uL Hgb (14.0-18.0) g/dL Hct (42-52) % MCHC (32-36) g/dL RDW Std Deviation (36.4-46.3) fL RDW Coeff of Leeanna (11.5-14.5) % Plt Count (130-400) K/uL MPV (7.4-10.4) fL Absolute Nucleated RBC (0-0) K/uL Monocytes # (Manual) (0.11-0.59) K/uL Myelocytes # (Manual) (0-0) K/uL Blast Cells # (Man) (0-0) K/uL Other Cells # (0-0) K/uL Chloride 114 H (98-107) mmol/L BUN 25 H (7-18) mg/dl Creatinine (0.6-1.4) mg/dl Glucose (70-99) mg/dl POC Glucose (70-99) mg/dl Calcium 8.1 L (8.5-10.1) mg/dl AST (15-37) U/L Total Protein (6.4-8.2) gm/dl Albumin (3.4-5.0) gm/dl Albumin/Globulin Ratio (0.9-2) (1) Multiple rib fractures Encounter type: initial encounter Fracture type: closed Laterality: left Qualified Code(s): S22.42XA - Multiple fractures of ribs, left side, initial encounter for closed fracture
[2020-09-26] MEDS ORDERED: ACETAMINOPHEN 325 MG TAB PO PRN (09:40)
[2020-09-26] MEDS: INSULIN ASPART 100 UNITS/ML 3 ML PEN SC SCH ×4 (10:16→20:41)
[2020-09-26] MEDS: INSULIN GLARGINE SOLOSTAR 100 UNITS/ML 3 ML PEN SC SCH ×2 (10:17→20:42)
[2020-09-26] MEDS: PANTOprazole 40 MG TAB PO SCH (10:17)
[2020-09-26] MEDS: HEPARIN SOD 5,000 UNIT/0.5 ML VIAL SQ SCH ×2 (10:18→20:41)
[2020-09-26] MEDS: oxyCODONE HCL IR 5 MG TAB (IMMEDIATE RELEASE) PO PRN ×2 (10:22→19:40)
--- NOTE | 2020-09-26 13:16 | Family Medicine Progress Note ---
Date of Service September 26, 2020 Assessment & Plan (1) Rupture of spleen: Plan: Patient is a 89-year-old male with a notable past medical history of CAD s/p CABG, type 2 diabetes, CKD stage IV, chronic C-spine fracture, pancytopenia, and multiple falls who presented after a mechanical fall, subsequently found to have acute blood loss anemia secondary to a splenic laceration and rib fractures. He is s/p splenectomy. He was unable to proceed physical therapy yesterday due to pain. Status post splenectomy Acute blood loss anemia Preoperative history of pancytopenia I do not think there is any active bleeding at present, or so anemia is mu ltifactorial and related to his previous history of pancytopenia Transfuse 1 unit of packed red blood cells today and monitor CBC Check serum iron studies Will review hematology records; it sounds, the patient's description, as if he is receiving Procrit prior to his hospitalization. Rib fractures Pain secondary rib fractures and postoperative pain Oversedation with opioids, depressed respiratory function, now resolved We will decrease hydromorphone to 0.5 mg and oxycodone 5 mg Add lidoderm patch If evidence of oversedation or depressed respiratory function, cannot give full strength Narcan as this will precipitate acute pain crises Rather, dilute 4 mg of Narcan and 10 mL of saline, and administer 0.5 to 1 mL of this diluted solution every 3 to 5 minutes until respiratory rate greater than 8. If respiratory rate is greater than 8 and pulse oximetry greater than 95%, would not use Narcan but rather decrease next opiate dosing. Will need additional immunizations We will look to vaccinate with Menactra and Hib during hospitalization He is already had a Prevnar, so recommendation would be for repeat Pneumovax every 5 to 7 years Will provide Pneumovax at first outpatient appointment He will need a second Menactra as outpatient Diabetes Pharmacy glycemic consult Rather loose outpatient glycemic goals considering his poor overall health and prognosis Pancytopenia (see above also) Previously seen hematology for pancytopenia; will work to obtain outpatient hematology notes. His white blood cell count and platelets are trending up which is not unexpected post splenectomy. His hemoglobin is drifting down, probably combination of his pre-existing condition as well as recent surgery/poor PO Hypertension/ CAD Continue home atorvastatin, asprin, metoprolol Dispo: med/surg DVT ppx: Heparin 5,000u SQ Q12 Diet: Full liquid Code: Full Code; will need to rediscuss with patient and family when they are available later this afternoon Admission and Anticipated Discharge Date Admission Date: September 23, 2020 Subjective Patient is sleeping but awakens to my voice. His speech is improved from yesterday; he is alert and oriented. Her speech is still slightly slowed, his thoughts are certainly well organized and he is aware of his condition, location, events, etc. Yesterday p.m. he was sleepy with depressed respiratory function secondary to opiate accumulation. Fortunately, we did not have administered Narcan as his pulse oximetry remained greater than 97% and his respiratory rate never dropped below 8/min. We decreased his opiate dosing; add Tylenol, but unfortunately he does still complain of considerable pain. That being said, the pain does not prohibit sleep. Review of Systems Review of Systems: Other Constitutional: No fever. Ear, Nose, Mouth, Throat: Hard of hearing, chronic Gastrointestinal: Denies nausea, vomiting, diarrhea Psychiatric: Alert and oriented. Physical Exam Physical Exam: Alert and oriented. Speech somewhat slowed as noted above. Neck supple. Trachea midline. There is no jugular venous distention apprec iated. Heart regular rate and rhythm. Auscultated rate mid 70s. Lungs are somewhat decreased in the bases due to effort, clear throughout otherwise. Abdomen itself is soft and nontender. He does have tenderness to the left costal area. Extremities without edema. No calf tenderness appreciated. Results & Data ([facility]) Vital Signs (Past 12 Hours) Vital Signs Temp Pulse Resp BP Pulse Ox 09/26/20 08:26 36.4 C L 87 16 135/61 95 Laboratory Results Hemoglobin 7.5, hematocrit 23.5% BUN 25, creatinine 1.3
[2020-09-26] MEDS ORDERED: SODIUM CHLORIDE 0.9% 250 ML IV PRN (13:20)
[2020-09-26] MEDS: ACETAMINOPHEN 500 MG TAB PO SCH ×2 (13:59→20:40)
[2020-09-26] MEDS: LIDOCAINE 5% 1 PATCH TD SCH (13:59)
--- NOTE | 2020-09-26 18:24 | Communication Note ---
Date of Service: September 26, 2020 This afternoon, I was able to meet with the patient and his daughter (Ewelina). Jhony actually looks improved this afternoon; he is awake, alert, and oriented. The slowed speech that he had previously is pretty much back to baseline. He is still somewhat hard of hearing (his daughter will bring in his hearing aids tomorrow). However, speaking loudly he does verbalize understanding. We discussed goals of care and what he would want to happen should his heart stop. We have had similar discussions as an outpatient, and he and the family have been discussing the same at home. After discussion, he decided that he would not want to undergo intubation/cardiopulmonary resuscitation in the event the event of cardiac arrest. He does want continued aggressive medical care including blood transfusions, antibiotics, and pressure support should it be needed. The EMR was updated to reflect his DO NOT RESUSCITATE/DO NOT INTUBATE status.
[2020-09-27] MEDS: SODIUM CHLORIDE 0.9% 1000ML 1,000 ML IV SCH ×2 (04:03→16:45)
[2020-09-27 08:01] LABS: Hematocrit (blood only) 28.4 % (42-52); Hemoglobin 9.3 g/dL (14.0-18.0); Mean Corpuscular Hemoglobin 31.1 pg (25-34); Mean Corpuscular Hgb Conc 32.7 g/dL (32-36); Mean Platelet Volume 12.1 fL (7.4-10.4); Platelet Count 113 K/uL (130-400); RDW Coefficient of Variation 15.4 % (11.5-14.5); RDW Standard Deviation 52.6 fL (36.4-46.3); Red Blood Count 2.99 M/uL (4.7-6.1); White Blood Count 7.24 K/uL (4.8-10.8)
[2020-09-27 08:24] LABS: ALC (manual) 1.06 K/uL (1.2-3.4); ANC (manual) 5.05 K/uL (1.4-6.5); Lymphocytes # (manual) 1.06 K/uL (1.2-3.4); Lymphocytes % (manual) 14.6 %; Monocytes # (manual) 1.06 K/uL (0.11-0.59); Monocytes % (manual) 14.6 %; Neutrophils # (manual) 5.05 K/uL (1.4-6.5); Neutrophils % (manual) 69.8 %; Nucleated RBC # (auto) 3.54 K/uL (0-0); Other Cells # (manual) 0.07 K/uL (0-0)
--- NOTE | 2020-09-27 08:40 | Pharmacy Report ---
Pharmacy Glycemic Short Note 2 - Date of Service September 27, 2020 - Glycemic Short BSG Results (Last 24 hours): 09/26/20 09/26/20 09/26/20 12:00 17:04 20:37 POC Glucose 104 H 100 H 104 H 09/27/20 08:29 POC Glucose 86 OUTPATIENT ANTIDIABETIC REGIMEN: * Glipizide 10mg PO daily * A1c = 6.5% (09/24/20) ASSESSMENT: 09/27: * Christian received a total of 15 units of insulin yesterday * 14 units basal + 1 units bolus * BSGs were controlled: 86-142 mg/dL * Fasting BSG was well controlled at 86 mg/dL this AM * Continue with current insulin regimen - patient's appetite remains poor despite being advanced to full liquids. Will continue to monitor PO intake and adjust insulin regimen as necessary. 09/25: * Christian received a total of 26 units of insulin yesterday * 17 units basal + 9 units bolus * BSGs were uncontrolled: [id number] mg/dL * Fasting BSG was well controlled at 126 mg/dL this AM * Continue with current basal regimen - patient's appetite remains poor despite being advanced to full liquids. Will continue to monitor PO intake and adjust insulin regimen as necessary. 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 Initial Lantus doses will be based upon "mild stress" given age, clear liquid diet and underlying renal insuff - in order to avoid prolonged hypoglycemia. Novolog CF/CR will be based upon "moderate" stress level. PLAN FOR INPATIENT GLYCEMIC CONTROL: * Hold outpatient oral diabetes medications * Basal insulin * Lantus 7 units SQ BID * Bolus insulin * NovoLog per scale ACHS or Q6hrs while NPO * Goal Range: Low 110 mg/dL - High 140 mg/dL * Correction Factor: 25 mg/dL/unit * Nutritional / Prandial insulin per carb ratio of 1 unit per 8 grams CHO consumed PLAN FOR DISCHARGE: * HbA1c was 6.5% from this admission which is at goal for this patient. * Continue Glipizide 10 mg PO daily upon discharge as long as patient is not experiencing any hypoglycemia.
--- NOTE | 2020-09-27 09:37 | Surgery Progress Note ---
Date of Service September 27, 2020 Assessment & Plan (1) Rupture of spleen: Plan: s/p splenectomy. On low fiber diet. Tolerating well. H/H responded to 1 unit prbc yesterday. JOSE L in place Very weak - discussed working with PT to get his strength back Pain meds adjusted by medicine - hopefully will allow him to work with PT. (2) H/O splenectomy: (3) Multiple rib fractures: Plan: Persistent pain. Encourage deep breathing PT Admission and Anticipated Discharge Date Admission Date: September 23, 2020 Subjective Awake. Complaining of feeling very weak. Pain is slightly better but still hurts. Tolerating diet. Received 1 unit PRBC yesterday. Physical Exam Constitutional: average body habitus; not in distress Respiratory: no respiratory distress and no labored breathing Cardiovascular: RRR, no murmur, no edema Gastrointestinal (Abdomen): Inspection/Auscultation: normal bowel sounds, + abdominal surgical incision (clean and intact) and + abdominal surgical drain present (serosanguinous 30 cc output); abdomen not distended Percussion/Palpation: + abdomen tender and abdomen soft Neurologic: awake; no focal motor deficits Results & Data ([facility]) Vital Signs (Past 12 Hours) Vital Signs Temp Pulse Resp BP Pulse Ox 09/27/20 07:26 37.1 C 84 18 155/70 H 95 09/26/20 22:36 37.0 C 84 18 145/67 H 92 (1) Multiple rib fractures Encounter type: initial encounter Fracture type: closed Laterality: left Qualified Code(s): S22.42XA - Multiple fractures of ribs, left side, initial encounter for closed fracture
[2020-09-27] MEDS: INSULIN GLARGINE SOLOSTAR 100 UNITS/ML 3 ML PEN SC SCH ×2 (09:52→21:53)
[2020-09-27] MEDS: INSULIN ASPART 100 UNITS/ML 3 ML PEN SC SCH ×4 (09:52→21:51)
[2020-09-27] MEDS: HEPARIN SOD 5,000 UNIT/0.5 ML VIAL SQ SCH ×2 (09:53→21:50)
[2020-09-27] MEDS: PANTOprazole 40 MG TAB PO SCH (09:53)
[2020-09-27] MEDS: ACETAMINOPHEN 500 MG TAB PO SCH ×3 (09:53→21:48)
[2020-09-27] MEDS: LIDOCAINE 5% 1 PATCH TD SCH (09:55)
--- NOTE | 2020-09-27 17:24 | Family Medicine Progress Note ---
Date of Service September 27, 2020 Assessment & Plan (1) Rupture of spleen: Plan: Patient is a 89-year-old male with a notable past medical history of CAD s/p CABG, type 2 diabetes, CKD stage IV, chronic C-spine fracture, pancytopenia, and multiple falls who presented after a mechanical fall, subsequently found to have acute blood loss anemia secondary to a splenic laceration and rib fractures. He is s/p splenectomy. He was unable to proceed physical therapy yesterday due to pain. Status post splenectomy Acute blood loss anemia Preoperative history of pancytopenia Morning counts look good after transfusion of 1 unit PRBCs yesterday CBC and AM Will need to touch base with hematology regarding his weekly injection (? Procrit) Rib fractures Pain secondary rib fractures and postoperative pain Oversedation with opioids, depressed respiratory function, now resolved Pain is relatively well controlled; certainly no evidence of oversedation Continue hydromorphone to 0.5 mg every 3 hours and oxycodone 5-10 mg p.o. every 4 hours; he seems to be tolerated 10 mg dose without side effects Lidoderm patch If evidence of oversedation or depressed respiratory function, cannot give full strength Narcan as this will precipitate acute pain crises Rather, dilute 4 mg of Narcan and 10 mL of saline, and administer 0.5 to 1 mL of this diluted solution every 3 to 5 minutes until respiratory rate greater than 8. If respiratory rate is greater than 8 and pulse oximetry greater than 95%, would not use Narcan but rather decrease next opiate dosing. Will need additional immunizations Will vaccinate with Menactra and Hib today He is already had a Prevnar, so recommendation would be for repeat Pneumovax every 5 to 7 years Will provide Pneumovax at first outpatient appointment He will need a second Menactra as outpatient PT/OT Will likely need inpatient rehabilitation Diabetes Pharmacy glycemic consult Rather loose outpatient glycemic goals considering his poor overall health and prognosis Hypertension/ CAD Continue home atorvastatin, asprin, metoprolol Dispo: med/surg DVT ppx: Heparin 5,000u SQ Q12 Diet: Full liquid Code: DNR/DNI Admission and Anticipated Discharge Date Admission Date: September 23, 2020 Subjective Upon exam today, Jhony is semi-reclined in bed with two family members and one family friend at bedside. His daughter has brought in his hearing aids so it is much easier to converse with him today. He was up and out of bed to the bedside chair today -he does tell me this was somewhat uncomfortable, more so in the transfer than in being in the chair. Either way, he feels better now in terms of pain that is back in bed. Review of Systems Constitutional: No fevers. No chills. Still with generalized weakness. Respiratory: No cough or shortness of breath Musculoskeletal: Right chest wall pain. Psychiatric: Alert and oriented. He does describe some vivid dreams the last couple of nights, but he realizes that they were just dreams. Physical Exam Physical Exam: Alert and oriented. Thoughts are well organized. Speech is much clearer than previous. He really seems back to his baseline in terms of his mental status. HEENT grossly unremarkable Neck is supple Heart is regular. Left-sided chest wall tenderness consistent with previous exams, secondary to costal fractures. Lungs are clear, slightly decreased in the bases bilaterally secondary to pain with deep inspiration Abdomen is soft. Still some tenderness consistent with his previous surgery. Bowel sounds are noted Extremities without edema Results & Data ([facility]) Vital Signs (Past 12 Hours) Vital Signs Temp Pulse Resp BP Pulse Ox 09/27/20 16:39 36.8 C 76 16 164/75 H 98 09/27/20 07:26 37.1 C 84 18 155/70 H 95 Laboratory Results White blood cell 7.24, hemoglobin 9.3.
[2020-09-27] MEDS ORDERED: MELATONIN 3 MG TAB PO PRN (22:23)
[2020-09-28] MEDS: SODIUM CHLORIDE 0.9% 1000ML 1,000 ML IV SCH ×2 (03:57→14:57)
--- NOTE | 2020-09-28 06:30 | Surgery Progress Note ---
Date of Service September 28, 2020 Assessment & Plan (1) H/O splenectomy: Plan: Patient awake and alert-feeling better H&H is stable after 1 unit of blood, platelets greater than 100,000 Drain has 50 to 60 cc of serosanguineous fluid per 24 hours-leave drain Abdomen is soft-tolerating diet We will likely leave drain on discharge-patient may need extended care until he gets stronger Possible discharge 1 to 2 days from surgical standpoint Admission and Anticipated Discharge Date Admission Date: September 23, 2020 Results & Data ([facility]) Vital Signs (Past 12 Hours) Vital Signs Temp Pulse Resp BP Pulse Ox 09/27/20 22:24 36.8 C 79 16 147/68 H 98 PG Care Time/CCT Total # of Minutes Spent Total Time Spent with Patient: Total time spent is greater than 50% in coordination of care (as documented) at patient's floor/unit and/or counseling patient: Coding Level of Care Code None Diagnoses H/O splenectomy Z90.81
[2020-09-28] MEDS ORDERED: ENSURE PO SCH (07:30)
[2020-09-28 07:41] LABS: Mean Corpuscular Hgb Conc 32.6 g/dL (32-36); Mean Platelet Volume 11.5 fL (7.4-10.4); Platelet Count 111 K/uL (130-400)
[2020-09-28 07:58] LABS: Hemoglobin 8.8 g/dL (14.0-18.0); Mean Corpuscular Hemoglobin 30.8 pg (25-34); Mean Corpuscular Volume 94.4 fL (80-100); RDW Coefficient of Variation 14.9 % (11.5-14.5); RDW Standard Deviation 50.6 fL (36.4-46.3); Red Blood Count 2.86 M/uL (4.7-6.1); White Blood Count 6.37 K/uL (4.8-10.8)
[2020-09-28 07:59] LABS: ALC (manual) 0.71 K/uL (1.2-3.4); ANC (manual) 5.28 K/uL (1.4-6.5); Eosinophils # (manual) 0.13 K/uL (0-0.5); Lymphocytes # (manual) 0.71 K/uL (1.2-3.4); Lymphocytes % (manual) 11.1 %; Monocytes # (manual) 0.25 K/uL (0.11-0.59); Neutrophils # (manual) 5.28 K/uL (1.4-6.5); Neutrophils % (manual) 82.9 %; RBC Morphology Unremarkable
[2020-09-28] MEDS ORDERED: [UNRECOGNIZED DRUG - OTHER] PO ONE (08:00)
[2020-09-28 08:23] LABS: BUN Creatinine Ratio 19.7 (10-20); Calcium 7.9 mg/dl (8.5-10.1); Creatinine Clr Calc Pharmacy 53.2 ml/min; Est GFR (African American) 81.5 ml/min; Est GFR (Non-African American) 70.3 ml/min; Potassium 3.6 mmol/L (3.5-5.1)
[2020-09-28] MEDS: ACETAMINOPHEN 500 MG TAB PO SCH ×3 (10:39→21:30)
[2020-09-28] MEDS: HEPARIN SOD 5,000 UNIT/0.5 ML VIAL SQ SCH ×2 (10:39→21:30)
[2020-09-28] MEDS: PANTOprazole 40 MG TAB PO SCH (10:40)
[2020-09-28] MEDS: LIDOCAINE 5% 1 PATCH TD SCH (10:40)
[2020-09-28] MEDS: INSULIN ASPART 100 UNITS/ML 3 ML PEN SC SCH ×4 (11:03→21:35)
--- NOTE | 2020-09-28 12:03 | Pharmacy Report ---
Pharmacy Glycemic Short Note 2 - Date of Service September 28, 2020 - Glycemic Short BSG Results (Last 24 hours): 09/27/20 09/27/20 09/27/20 12:28 17:40 21:41 Glucose POC Glucose 107 H 97 90 09/28/20 09/28/20 09/28/20 07:19 08:18 08:19 Glucose 67 L POC Glucose 62 L* 73 OUTPATIENT ANTIDIABETIC REGIMEN: * Glipizide 10mg PO daily * A1c = 6.5% (09/24/20) ASSESSMENT: 09/28: * Patient received total of 14 units of insulin yesterday, of which all 14 units were basal insulin * Fasting BSG lower at 67 mg/dL - no symptoms of hypoglycemia noted, on recheck 73 mg/dL - PO intake remains poor still, held AM Lantus. Plan to have reduced scale for Lantus at HS time only * Loosened CF/CR 09/27: * Christian received a total of 15 units of insulin yesterday * 14 units basal + 1 units bolus * BSGs were controlled: 86-142 mg/dL * Fasting BSG was well controlled at 86 mg/dL this AM * Continue with current insulin regimen - patient's appetite remains poor despite being advanced to full liquids. Will continue to monitor PO intake and adjust insulin regimen as necessary. 09/25: * Christian received a total of 26 units of insulin yesterday * 17 units basal + 9 units bolus * BSGs were uncontrolled: [phone] mg/dL * Fasting BSG was well controlled at 126 mg/dL this AM * Continue with current basal regimen - patient's appetite remains poor despite being advanced to full liquids. Will continue to monitor PO intake and adjust insulin regimen as necessary. 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 Initial Lantus doses will be based upon "mild stress" given age, clear liquid diet and underlying renal insuff - in order to avoid prolonged hypoglycemia. Novolog CF/CR will be based upon "moderate" stress level. PLAN FOR INPATIENT GLYCEMIC CONTROL: * Hold outpatient oral diabetes medications * Basal insulin * Lantus - held AM basal * Lantus HS per scale - 0-5-8 units HS based upon BSG scale * Bolus insulin * NovoLog per scale ACHS or Q6hrs while NPO * Goal Range: Low 110 mg/dL - High 140 mg/dL * Correction Factor: 30 mg/dL/unit * Nutritional / Prandial insulin per carb ratio of 1 unit per 10 grams CHO consumed PLAN FOR DISCHARGE: * HbA1c was 6.5% from this admission which is at goal for this patient. * Continue Glipizide 10 mg PO daily upon discharge as long as patient is not experiencing any frequent hypoglycemia outpatient. Would ensure PO intake adequate on discharge before resuming oral agent.
[2020-09-28] MEDS ORDERED: POLYETHYLENE (MIRALAX) 17 GM PACK PO PRN (13:29)
--- NOTE | 2020-09-28 14:34 | Medical Student Progress Note ---
Date of Service September 28, 2020 Assessment & Plan (1) H/O splenectomy: Plan: -Patient awake and alert-feeling better -H&H trending (Hgb 8.8 vs 9.3 on 09/27, Hct 27 vs 28.4), platelets 111k vs 113 09/27 -Continue trending with CBC tomorrow -Drain has 50 to 60 cc of serosanguineous fluid per 24 hours-leave drain -We will likely leave drain on discharge-patient may need extended care until he gets stronger -After discharge, empiric ABx when febrile with Augmentin -Patient's pain managed with oxycodone 10 mg PO q4, last needed on 09/26, discontinue hydromorphone -Abdomen is soft-tolerating diet -Seen by nutrition, per their recommendations, transitioning off of low fiber diet -Encourage PO intake -Trial of Vanilla Boost BID -Consider thiamine PRN -Monitor PO intake, electrolytes -No bowel movement in days -Add Miralax daily scheduled and additional PRN (2) Multiple rib fractures: Plan: -Patient's pain managed with oxycodone 10 mg PO q4, last needed on 09/26 -Discontinue hydromorphone Encounter type: initial encounter Fracture type: closed Laterality: left Qualified Code(s): S22.42XA - Multiple fractures of ribs, left side, initial encounter for closed fracture (3) Pancytopenia: Plan: -WBC stable (6.37 vs 7.24 09/27), H&H (Hgb 8.8 vs 9.3 on 09/27, Hct 27 vs 28.4), platelets (111k vs 113) 09/27 -Continue trending CBC -Not considering Procrit at this time (4) Diabetes: Plan: -Seen by Pharmacy -Fasting BSD 67-73 mg/dL, no symptoms of hypoglycemia -Using their recommendation of reduced scale Lantus qHS only since poor PO intake -Reassess tomorrow once PO intake increases Diabetes mellitus complication status: without complication Diabetes mellitus snf insulin use: without intermediate card tender use Diabetes mellitus type: type 2 Qualified Code(s): E11.9 - Type 2 diabetes mellitus without complications (5) Hypertension: Plan: -Continue home atorvastatin, ASA, metoprolol Hypertension type: essential hypertension Qualified Code(s): I10 - Essential (primary) hypertension (6) Coronary artery disease: Plan: -Continue home atorvastatin, ASA, metoprolol Associated angina: without angina Coronary Disease-Associated Artery/Lesion type: eagle artery [place]bb[place] vs. transplanted heart: eagle heart Qualified Code(s): I25.10 - Atherosclerotic heart disease of eagle coronary artery without angina pectoris Admission and Anticipated Discharge Date Admission Date: September 23, 2020 Supervising Attestation I personally examined the patient and verified all hillman points of history and exa m, discussed case, and agree with decision making with Ad Arredondo MS4 and Dr Brice Still having some pain left backaround where an incision appears to be dressed. He is trying to get up and around more. He notes no appetite, and very little interest in food. He notes this predates his falls and splenic laceration by at least a month. Notes that whenever he tries to eat he really just does not have any interest in it, has very little appetite, and the food just does not taste right. He does have a sense of taste and smell, but notes that things just taste poorly. He notes that his daughter and son-in-law have been adamant with him to try to get him especially to drink more, but also to eat more as well. They have been encouraging him to taking protein shakes, but so far he has not found a taste that agrees with him. He denies abdominal pain or early satiety, just no appetite. He can identify no clear triggering event. Vitals noted, in general he is awake and alert pleasant no distress. HEENT normocephalic atraumatic mucous membranes somewhat dry. Breathing unlabored no accessory muscle use good effort. Abdomen is soft moderately distended he does have some epigastric tenderness but no guarding rebound or rigidity. Left back pain region shows a dressed wound, no tracking erythema. He does not have any notable rib dysfunction or paraspinal hypertonicity in this region. Fall/rib fractures/splenic lacerationnow status post splenectomy. Recovering from surgery well. Appreciate surgical input. Acute blood loss anemianow stable. Continue to follow. Poor appetite/failure to thrivediscussed the critical importance of p.o. intake with patient, consult with nutrition, agree with overall assessment. Definitely will need some "cheaters" to help reach calorie goalsagree that boost is a good starting point, and will discuss with patient multiple flavors and brands hopefully find something that seems to agree with his taste. Because his chronic issues do not have a clear cause, but it seems to relate to the taste of food, and his mouth is somewhat drywill add gravies/sauces to meals when/if possible. Will discuss calorie goals with patient now that we have accurate math to be able to set a "budget" and will impart the patient the importance of meeting these goals. If he continues to struggle, very low threshold to start an appetite stimulant. Otherwise as above Subjective Upon exam today, Jhony is semi-reclined in bed reading the newspaper. Says he's feeling ~70% better today and was able to slightly turn himself over in bed today, which had been very painful yesterday. His pain is well-controlled. Today, he speaks about some neck discomfort that is making him a bit nauseous. He speaks about this being an ongoing issue, but says the nausea today is about as problemsome as the broken ribs and pain from the surgery. Jhony still does not have an appetite today. I tried to get him to eat while I was in the room, and he tried a bit of an orange slice and poured a cup of coffee (unsure of how much he consumed, but he usually only takes a few sips each day). Food just does not "taste the same". He says he's lost about 60 lbs over the years and notes that his daughter and her fiance are very concerned about him due to his lack of eating. Of note, patient says he has not had a bowel movement in several days, but is not endorsing any specific abdominal pain or constipation. Also, patient notes that he was unsure of how often to use the incentive spirometer, so he had not been using it. Review of Systems Constitutional: No fevers. Some generalized weakness, but improved. Ear, Nose, Mouth, Throat: Hard of hearing, chronic Respiratory: No cough or shortness of breath Gastrointestinal: Denies nausea, vomiting, diarrhea, constipation Musculoskeletal: No right chest wall pain. Psychiatric: Alert and oriented. Hematologic / Lymphatic: + problem reported (bone marrow disorder, nonspe cified, recently diagnosed) Physical Exam Physical Exam: Alert and oriented x 3. Thoughts are well organized. Constitutional: WD/WN, vitals as above well developed and average body habitus; not in distress Neck: normal visual inspection Respiratory: normal respiratory effort, lungs clear to auscultation normal respiratory effort; no respiratory distress and no labored breathing Auscultation: lungs clear to auscultation bilaterally Cardiovascular: RRR, no murmur, no edema Rate/Rhythm: regular rate and regular rhythm Gastrointestinal (Abdomen): Inspection/Auscultation: normal bowel sounds, + abdominal surgical incision (clean and intact) and + abdominal surgical drain present (serosanguinous fluid); abdomen not distended Percussion/Palpation: abdomen soft; abdomen nontender Skin: + ecchymosis (arms) Neurologic: moves all extremities and awake; no focal motor deficits Psychiatric: Orientation: alert and oriented x 3 Results & Data ([facility]) Vital Signs (Past 12 Hours) Vital Signs Temp Pulse Resp BP Pulse Ox 09/28/20 08:49 36.9 C 76 18 168/67 H 96 Laboratory Results Laboratory Results WBC 6.37 K/uL (4.8-10.8) 09/28/20 07:19 RBC 2.86 M/uL (4.7-6.1) L 09/28/20 07:19 Hgb 8.8 g/dL (14.0-18.0) L 09/28/20 07:19 Hct 27.0 % (42-52) L 09/28/20 07:19 MCV 94.4 fL (80-100) 09/28/20 07:19 MCH 30.8 pg (25-34) 09/28/20 07:19 MCHC 32.6 g/dL (32-36) 09/28/20 07:19 RDW Std Deviation 50.6 fL (36.4-46.3) H 09/28/20 07:19 RDW Coeff of Leeanna 14.9 % (11.5-14.5) H 09/28/20 07:19 Plt Count 111 K/uL (130-400) L 09/28/20 07:19 MPV 11.5 fL (7.4-10.4) H 09/28/20 07:19 Immature Gran % (Auto) Cancelled 09/27/20 05:55 Neut % (Auto) Cancelled 09/27/20 05:55 Lymph % (Auto) Cancelled 09/27/20 05:55 [place] % (Auto) Cancelled 09/27/20 05:55 Eos % (Auto) Cancelled 09/27/20 05:55 Baso % (Auto) Cancelled 09/27/20 05:55 Neut # (Auto) Cancelled 09/27/20 05:55 Lymph # (Auto) Cancelled 09/27/20 05:55 [place] # (Auto) Cancelled 09/27/20 05:55 Eos # (Auto) Cancelled 09/27/20 05:55 Baso # (Auto) Cancelled 09/27/20 05:55 Immature Gran # (Auto) Cancelled 09/27/20 05:55 Absolute Nucleated RBC 3.70 K/uL (0-0) H 09/28/20 07:19 Nucleated RBC % (auto) 58.0 % 09/28/20 07:19 Neutrophils % (Manual) 82.9 % 09/28/20 07:19 Band Neutrophils % Cancelled 09/27/20 05:55 Lymphocytes % (Manual) 11.1 % 09/28/20 07:19 Prolymphocyte % Cancelled 09/27/20 05:55 Reactive Lymphs % (Man) Cancelled 09/27/20 05:55 Monocytes % (Manual) 4.0 % 09/28/20 07:19 Eosinophils % (Manual) 2.0 % 09/28/20 07:19 Basophils % (Manual) Cancelled 09/27/20 05:55 Metamyelocytes % (Man) Cancelled 09/27/20 05:55 Myelocytes % (Man) Cancelled 09/27/20 05:55 Promyelocytes % (Man) Cancelled 09/27/20 05:55 Blast Cells % (Manual) Cancelled 09/27/20 05:55 Plasma Cell % (Manual) Cancelled 09/27/20 05:55 Other Cells % 1.0 % 09/27/20 07:48 Nucleated RBC % Cancelled 09/27/20 05:55 Neutrophils # (Manual) 5.28 K/uL (1.4-6.5) 09/28/20 07:19 Band Neutrophils # Cancelled 09/27/20 05:55 Total Absolute Neuts 5.28 K/uL (1.4-6.5) 09/28/20 07:19 Lymphocytes # (Manual) 0.71 K/uL (1.2-3.4) L 09/28/20 07:19 Prolymphocyte # Cancelled 09/27/20 05:55 Reactive Lymphs # Cancelled 09/27/20 05:55 Total Abs Lymphocytes 0.71 K/uL (1.2-3.4) L 09/28/20 07:19 Monocytes # (Manual) 0.25 K/uL (0.11-0.59) 09/28/20 07:19 Eosinophils # (Manual) 0.13 K/uL (0-0.5) 09/28/20 07:19 Basophils # (Manual) Cancelled 09/27/20 05:55 Metamyelocytes # (Man) Cancelled 09/27/20 05:55 Myelocytes # (Manual) Cancelled 09/27/20 05:55 Promyelocytes # (Man) Cancelled 09/27/20 05:55 Blast Cells # (Man) Cancelled 09/27/20 05:55 Plasma Cell # (Manual) Cancelled 09/27/20 05:55 Other Cells # 0.07 K/uL (0-0) H 09/27/20 07:48 Nucleated RBCs # (Man) Cancelled 09/27/20 05:55 Hypersegmented Neuts Cancelled 09/27/20 05:55 Hyposegmented Neuts Cancelled 09/27/20 05:55 Hypogranular Neuts Cancelled 09/27/20 05:55 Large Granular Lymphs Cancelled 09/27/20 05:55 # Lrg Granular Lymphs Cancelled 09/27/20 05:55 Hairy Cells Cancelled 09/27/20 05:55 Smudge Cells Cancelled 09/27/20 05:55 Toxic Granulation Cancelled 09/27/20 05:55 Toxic Vacuolation Cancelled 09/27/20 05:55 Dohle Bodies Cancelled 09/27/20 05:55 Israel Rods Cancelled 09/27/20 05:55 Platelet Estimate Cancelled 09/27/20 05:55 Hypogranular Platelets Cancelled 09/27/20 05:55 Clumped Platelets Cancelled 09/27/20 05:55 Giant Platelets Cancelled 09/27/20 05:55 Platelet Satelliting Cancelled 09/27/20 05:55 RBC Morphology Unremarkable 09/28/20 07:19 Polychromasia Cancelled 09/27/20 05:55 Hypochromasia Cancelled 09/27/20 05:55 Poikilocytosis Cancelled 09/27/20 05:55 Basophilic Stippling Cancelled 09/27/20 05:55 Anisocytosis Cancelled 09/27/20 05:55 Microcytosis Cancelled 09/27/20 05:55 Macrocytosis Cancelled 09/27/20 05:55 Spherocytes Cancelled 09/27/20 05:55 Pappenheimer Bodies Cancelled 09/27/20 05:55 Sickle Cells Cancelled 09/27/20 05:55 Target Cells Cancelled 09/27/20 05:55 Tear Drop Cells Cancelled 09/27/20 05:55 Ovalocytes Cancelled 09/27/20 05:55 Stomatocytes Cancelled 09/27/20 05:55 [place] Bodies Cancelled 09/27/20 05:55 Echinocytes Cancelled 09/27/20 05:55 Acanthocytes (Spur) Cancelled 09/27/20 05:55 Rouleaux Cancelled 09/27/20 05:55 RBC Agglutinates Cancelled 09/27/20 05:55 Schistocytes Cancelled 09/27/20 05:55 RBC Morph Comment Cancelled 09/27/20 05:55 Sezary Cell Cancelled 09/27/20 05:55 PT 12.3 Seconds (9.0-12.0) H 09/23/20 16:49 INR 1.2 (0.9-1.1) H 09/23/20 16:49 APTT 31.3 Seconds (21.0-31.0) H 09/23/20 18:06 PTT Ratio 1.2 09/23/20 18:06 Sodium 141 mmol/L (136-145) 09/28/20 07:19 Potassium 3.6 mmol/L (3.5-5.1) 09/28/20 07:19 Chloride 113 mmol/L (98-107) H 09/28/20 07:19 Carbon Dioxide 21 mmol/L (21-32) 09/28/20 07:19 Anion Gap 8.0 (3-11) 09/28/20 07:19 BUN 19 mg/dl (7-18) H 09/28/20 07:19 Creatinine 0.96 mg/dl (0.6-1.4) 09/28/20 07:19 Est Cr Clr Drug Dosing 53.2 ml/min 09/28/20 07:19 Est GFR ( Amer) 81.5 ml/min 09/28/20 07:19 Est GFR (Non-Af Amer) 70.3 ml/min 09/28/20 07:19 BUN/Creatinine Ratio 19.7 (10-20) 09/28/20 07:19 Glucose 67 mg/dl (70-99) L 09/28/20 07:19 POC Glucose 87 mg/dl (70-99) 09/28/20 12:29 Estimat Average Glucose 140 mg/dl 09/24/20 03:32 Hemoglobin A1c 6.5 % (4.5-5.6) H 09/24/20 03:32 Calcium 7.9 mg/dl (8.5-10.1) L 09/28/20 07:19 Phosphorus 2.8 mg/dl (2.5-4.9) D 09/25/20 08:38 Magnesium 2.0 mg/dl (1.8-2.4) 09/24/20 03:32 Total Bilirubin 0.6 mg/dl (0.2-1) 09/25/20 08:38 AST 14 U/L (15-37) L 09/25/20 08:38 ALT 12 U/L (12-78) 09/25/20 08:38 Alkaline Phosphatase 63 U/L (45-117) 09/25/20 08:38 Troponin I < 0.015 ng/ml (0-0.045) 09/23/20 11:44 Total Protein 5.7 gm/dl (6.4-8.2) L D 09/25/20 08:38 Albumin 2.5 gm/dl (3.4-5.0) L 09/25/20 08:38 Globulin 3.2 gm/dl (2.5-4.0) 09/25/20 08:38 Albumin/Globulin Ratio 0.8 (0.9-2) L 09/25/20 08:38 Urine Color Yellow 09/24/20 02:00 Urine Appearance Clear (Clear) 09/24/20 02:00 Urine pH 5.0 (4.5-7.5) 09/24/20 02:00 Ur Specific Benge 1.023 (1.000-1.030) 09/24/20 02:00 Urine Protein Trace (Negative) H 09/24/20 02:00 Urine Glucose (UA) Negative (Negative) 09/24/20 02:00 Urine Ketones Trace (Negative) H 09/24/20 02:00 Urine Blood 1+ (Negative) H 09/24/20 02:00 Urine Nitrite Negative (Negative) 09/24/20 02:00 Urine Bilirubin Negative (Negative) 09/24/20 02:00 Urine Urobilinogen Negative (Negative) 09/24/20 02:00 Ur Leukocyte Esterase Negative (Negative) 09/24/20 02:00 Urine WBC (Auto) 1-5 /hpf (0-5) 09/24/20 02:00 Urine RBC (Auto) 5-10 /hpf (0-4) H 09/24/20 02:00 U Hyaline Cast (Auto) 5-10 /lpf (0-5) H 09/24/20 02:00 U Epithel Cells (Auto) 20-30 /lpf (0-5) H 09/24/20 02:00 Urine Bacteria (Auto) Negative (Negative) 09/24/20 02:00 Granular Casts 1-5 /lpf (0) H 09/24/20 02:00 Nasal Screen MRSA (PCR) Negative (Negative) 09/23/20 17:00 Blood Type O Negative 09/23/20 14:08 Antibody Screen NEGATIVE 09/23/20 14:08 Crossmatch See Detail 09/23/20 14:[address] 09/23/20 12:04 CT cervical spine wo con CT DOSE: 383.13 mGycm CLINICAL HISTORY: 89 years-old Male with fall. Acute neck pain status post fall COMPARISON: CT cervical spine 07/23/2020 TECHNIQUE: Multiple axial CT images of the cervical spine were obtained without contrast. A dose lowering technique was utilized adhering to the principles of ALARA. FINDINGS: Chronic appearing fractures of the right C1 facet is unchanged. 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 There is severe degeneration of the C1-C2 articulation with partial bony fusion. Unchanged alignment of the occipital atlantal articulation. There is severe multilevel intervertebral disc space narrowing and facet arthrosis with at least partial degenerative related bony fusion noted at C3-T1. Unchanged grade 1 anterolisthesis C4 on C5 and C5 on C6. No acute fracture or subluxation. Evaluation of the central canal and neuroforamina is better assessed by MRI. Multilevel neuroforaminal narrowing. No pneumothorax. No prevertebral edema. Calcified plaque of the carotid bulbs. IMPRESSION: 1. No acute fracture or subluxation. 2. 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 ACT 112: Negative or not required by law. The above report was generated using voice recognition software. It may contain grammatical, syntax or spelling errors. Electronically signed by: Conor Rivera M.D. 09/23/2020 1:22 PM Chest X-Ray 09/23/20 12:04 XR chest 1V portable CLINICAL HISTORY: Fall. COMPARISON STUDY: Chest CT July 23, 2020. FINDINGS: Lung volumes are normal. Lungs are clear. There is no pneumothorax or pleural effusion. Cardiac size is normal. Mediastinal contours are normal. There is no evidence for pulmonary edema. There are median sternotomy wires. Skinfold projects over the right chest. IMPRESSION: No acute cardiopulmonary findings. ACT 112: Negative or not required by law. Electronically signed by: Jabari Urias M.D. 09/23/2020 12:[address] 09/23/20 12:04 CT head/brain wo con CLINICAL HISTORY: 89 years-old Male with fall. Acute head injury status post fall. TECHNIQUE: Multiple axial CT images of the head were obtained without contrast. A dose lowering technique was utilized adhering to the principles of ALARA. CT DOSE: 638.56 mGycm COMPARISON: Head CT 07/24/2020 FINDINGS: No acute intracranial hemorrhage, midline shift, intracranial mass, hydrocephalus, territorial ischemia or abnormal extra-axial collection. Age- related involutional changes with ex vacuo ventriculomegaly. Cerebral vascular calcifications. The calvarium is intact. Prior bilateral lens repair. The paranasal sinuses, mastoid air cells, and middle ear cavities are clear. IMPRESSION: No acute intracranial abnormality or calvarial fracture. ACT 112: Negative or not required by law. The above report was generated using voice recognition software. It may contain grammatical, syntax or spelling errors. Electronically signed by: Conor Rivera M.D. 09/23/2020 1:13 PM Abdomen/Pelvis CT 09/23/20 12:43 CT OF THE ABDOMEN AND PELVIS WITHOUT CONTRAST CLINICAL HISTORY: Fall. Left-sided pain. COMPARISON STUDY: CT of the abdomen and pelvis July 23, 2020. TECHNIQUE: Axial images of the abdomen and pelvis were obtained without IV contrast. Images were reviewed in the axial, sagittal, and coronal planes. Automated exposure control was utilized for the study. A dose lowering technique was utilized adhering to the principles of ALARA. FINDINGS: Please note that the chest CT will be reported separately. Note is made of multiple acute left lower rib fractures. There is an acute mildly displaced fracture of the lateral left 10th rib. There is also an acute nondisplaced fracture the posterior left 10th rib. Acute nondisplaced fracture of the posterior left 11th rib is noted. There is an acute nondisplaced fracture of the lateral left ninth rib. No pneumoperitoneum is present. Note is made of hyperdense clot adjacent to the spleen. Although suboptimally assessed on this unenhanced exam, there is a suspected splenic laceration that measures approximately 2.9 cm in length. Mild to moderate associated hemoperitoneum is present. There is also hyperdense clot within left upper quadrant adjacent to several bowel loops. This probably originates from the splenic laceration. There is hemorrhage within the pelvis, likely from the splenic laceration. Colonic diverticulosis is noted without evidence for acute diverticulitis. Perihepatic fluid also represents hemoperitoneum. There is no evidence for traumatic injury to the liver on this unenhanced exam. Unenhanced images of the adrenal glands and pancreas are unremarkable. There are small bilateral renal calculi. There are no ureteral]. Old L1 compression fracture is present. No acute lumbar spine or pelvic fracture is noted. IMPRESSION: 1. Mild to moderate hemoperitoneum, likely due to a splenic laceration, suboptimally assessed on this unenhanced CT. In addition, hyperdense clot within the upper quadrant adjacent to several bowel loops. This hemorrhage likely originates from the splenic laceration. Coexistent bowel injury could appear similar although is considered less likely. Close clinical follow-up is recommended. Findings discussed with Dr. Leon at time of dictation. 2. Multiple acute left lower rib fractures, as described above. ACT 112: Negative or not required by law. Electronically signed by: Jabari Urias M.D. 09/23/2020 1:[address] 09/23/20 12:43 CT chest diagnostic wo con CT DOSE: 950.09 mGycm CLINICAL HISTORY: 89 years-old Male with fall. Acute chest trauma status post fall TECHNIQUE: Multiaxial CT images of the chest were performed without contrast. A dose lowering technique was utilized adhering to the principles of ALARA. COMPARISON: CT abdomen and pelvis of same day, chest CT 07/23/2020 FINDINGS: Unremarkable thyroid. No adenopathy. 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 Extensive eagle coronary arterial and thoracic aortic calcifications. No pericardial effusion or mediastinal hematoma. Trace pleural effusions. Mild dependent subsegmental bibasilar atelectasis. No pneumothorax, pleural effusion, airspace consolidation or overt pulmonary edema. No definite suspicious pulmonary nodule. Unchanged indeterminate 4 mm solid nodule of the superior segment left lower lobe on image 110. The central airways are patent. Hemoperitoneum of the upper abdomen is noted adjacent to the liver and spleen. Partially imaged heterogeneity of the spleen. Tiny hiatal hernia. Small intramuscular hematomas are noted along the left lateral lower chest wall. Acute minimally displaced fracture of the lateral left ninth acute nondisplaced fractures involving the medial aspects of the left 10th and 11th ribs. There is an additional fracture involving the posterior aspect of the left 11th rib without significant no acute vertebral body fracture identified. IMPRESSION: 1. Acute left-sided rib fractures as above. Partially imaged hemoperitoneum of the upper abdomen. Please refer to the CT abdomen and pelvis study of same day for additional findings. 2. Trace pleural effusions. No pneumothorax. 3. Small acute intramuscular hematomas of the lateral lower left chest wall. 4. Chronic findings as above. ACT 112: Negative or not required by law. Electronically signed by: Conor Rivera M.D. 09/23/2020 1:39 PM Medications Administered Current Inpatient Medications Acetaminophen (Acetaminophen 500 Mg Tab) 1,000 mg PO TID BEBA Stop: 10/26/20 13:59 Last Admin: 09/28/20 10:39 Dose: 1,000 mg Documented by: Dextrose (Dextrose 50% 50 Ml Syringe) 25 - 50 ml IV UD PRN; Protocol PRN Reason: Hypoglycemia Protocol Stop: 10/24/20 14:59 Glucagon (Glucagon For Inj 1 Mg Vial) 1 mg IM UD PRN; Protocol PRN Reason: Hypoglycemia Protocol Stop: 10/24/20 14:59 Glucose (Glucose 40% Gel 15 Gm Tube) 15 - 30 gm PO UD PRN; Protocol PRN Reason: Hypoglycemia Protocol Stop: 10/24/20 14:59 Glucose (Glucose 10 Tabs/Tube) 4 - 8 tabs PO UD PRN; Protocol PRN Reason: Hypoglycemia Protocol Stop: 10/24/20 14:59 Haemophilus b Polysacch Conj Vacc (Haemoph B Polysacch Conj Vacc 0.5 Ml Vial) 0.5 ml IM .ONCE ONE Stop: 09/28/20 08:02 Heparin Sodium (Porcine) (Heparin Sod 5,000 Unit/0.5 Ml Vial) 5,000 units SQ Q12 BEBA Stop: 10/25/20 20:59 Last Admin: 09/28/20 10:39 Dose: 5,000 units Documented by: Promethazine HCl 12.5 mg/ (Sodium Chloride) 50.5 mls @ 204 mls/hr IV Q6H PRN PRN Reason: Nausea And Vomiting Stop: 10/23/20 17:36 Naloxone HCl 0.4 mg/ Syringe 4 mls @ 0 mls/min IV UD PRN; Protocol PRN Reason: RESPIRATORY RATE LESS THAN 8 Stop: 10/25/20 14:42 Sodium Chloride (Nss 1000ml) 1,000 mls @ 80 mls/hr IV .[id number] [facility] Stop: 10/25/20 16:44 Last Admin: 09/28/20 03:57 Dose: 80 mls/hr Documented by: Insulin Aspart (Insulin Aspart 100 Units/Ml 3 Ml Pen) 0 units SC ACHS [facility] Stop: 10/24/20 11:29 Last Admin: 09/28/20 13:26 Dose: Not Given Documented by: Lidocaine (Lidocaine 5% 1 Patch) 1 patch TD QAM [facility] Stop: 10/26/20 13:44 Last Admin: 09/28/20 10:40 Dose: 1 patch Documented by: Melatonin (Melatonin 3 Mg Tab) 3 mg PO HS PRN PRN Reason: Sleep Stop: 10/27/20 22:22 Last Admin: 09/27/20 22:39 Dose: 3 mg Documented by: Miscellaneous (Carbohydrates For Hypoglycemia ) 15 - 30 gm PO UD PRN PRN Reason: Hypoglycemia Treatment Stop: 10/24/20 14:59 Miscellaneous (Remove Lidoderm Patch) 1 ea N/A DAILY@2100 [facility] Stop: 10/26/20 20:59 Last Admin: 09/27/20 21:51 Dose: 1 ea Documented by: Miscellaneous Information (Pharmacy Glycemic Mgmt Consult) 1 ea N/A UD PRN PRN Reason: Consult Stop: 10/24/20 10:47 Non-Formulary Medication (Meningococccal Vaccine) 0.5 ml IM ONCE ONE Stop: 09/28/20 08:01 Ondansetron HCl (Ondansetron Inj 2 Mg/Ml 2 Ml Vial) 4 mg IV [id number] PRN PRN Reason: Nausea Stop: 10/23/20 17:36 Last Admin: 09/25/20 08:07 Dose: 4 mg Documented by: Oxycodone HCl (Oxycodone Hcl Ir 5 Mg Tab (Immediate Release)) 5 - 10 mg PO Q4HWA PRN PRN Reason: Pain Stop: 10/07/20 17:36 Last Admin: 09/26/20 19:40 Dose: 10 mg Documented by: Pantoprazole Sodium (Pantoprazole 40 Mg Tab) 40 mg PO QAM [facility] Stop: 10/24/20 09:44 Last Admin: 09/28/20 10:40 Dose: 40 mg Documented by: Polyethylene Glycol (Polyethylene (Miralax) 17 Gm Pack) 17 gm PO DAILY PRN PRN Reason: Constipation Stop: 10/28/20 13:28 Polyethylene Glycol (Polyethylene (Miralax) 17 Gm Pack) 17 gm PO DAILY [facility] Stop: 10/28/20 13:44
[2020-09-28] MEDS ORDERED: MULTIVITAMIN TAB PO SCH (14:45)
[2020-09-28] MEDS: POLYETHYLENE (MIRALAX) 17 GM PACK PO SCH (14:52)
[2020-09-28] MEDS ORDERED: [UNRECOGNIZED DRUG - OTHER] IM ONE (16:00)
--- NOTE | 2020-09-28 18:03 | Billing Data ---
Date of Service September 28, 2020 Coding Level of Care Code 44789 Subseq Hosp Care Lvl 3
[2020-09-28] MEDS ORDERED: INSULIN GLARGINE SOLOSTAR 100 UNITS/ML 3 ML PEN SC SCH (21:00)
[2020-09-29] MEDS: SODIUM CHLORIDE 0.9% 1000ML 1,000 ML IV SCH (03:32)
--- NOTE | 2020-09-29 07:01 | Surgery Progress Note ---
Date of Service September 29, 2020 Assessment & Plan (1) H/O splenectomy: Plan: Patient is awake and alert and doing well Drain had 50 cc out last shift-serosanguineous We will check lipase Continue current diet From a surgical standpoint patient can [facility] when medically stable possibly today or tomorrow Depending on lipase and drain may consider removing prior to discharge Admission and Anticipated Discharge Date Admission Date: September 23, 2020 Results & Data ([facility]) Vital Signs (Past 12 Hours) Vital Signs Temp Pulse Resp BP Pulse Ox 09/28/20 22:36 36.9 C 75 18 150/64 H 95 PG Care Time/CCT Total # of Minutes Spent Total Time Spent with Patient: Total time spent is greater than 50% in coordination of care (as documented) at patient's floor/unit and/or counseling patient: Coding Level of Care Code None Diagnoses H/O splenectomy Z90.81
[2020-09-29] MEDS: HEPARIN SOD 5,000 UNIT/0.5 ML VIAL SQ SCH (08:17)
[2020-09-29] MEDS: PANTOprazole 40 MG TAB PO SCH (08:17)
[2020-09-29] MEDS: ACETAMINOPHEN 500 MG TAB PO SCH ×2 (08:18→14:21)
[2020-09-29] MEDS: POLYETHYLENE (MIRALAX) 17 GM PACK PO SCH (08:19)
[2020-09-29 08:35] LABS: Hematocrit (blood only) 26.4 % (42-52); Hemoglobin 8.8 g/dL (14.0-18.0); Mean Corpuscular Hemoglobin 30.7 pg (25-34); Mean Corpuscular Hgb Conc 33.3 g/dL (32-36); Mean Platelet Volume 12.5 fL (7.4-10.4); Nucleated RBC # (auto) 3.96 K/uL (0-0); Nucleated RBC % (auto) 67.5 %; Platelet Count 126 K/uL (130-400); RDW Coefficient of Variation 14.9 % (11.5-14.5); RDW Standard Deviation 50.3 fL (36.4-46.3); Red Blood Count 2.87 M/uL (4.7-6.1); White Blood Count 5.86 K/uL (4.8-10.8)
[2020-09-29 08:36] LABS: BUN Creatinine Ratio 21.5 (10-20); Calcium 7.8 mg/dl (8.5-10.1); Creatinine Clr Calc Pharmacy 55.5 ml/min; Est GFR (African American) 85.8 ml/min; Potassium 3.8 mmol/L (3.5-5.1)
[2020-09-29] MEDS ORDERED: CEROVITE ADV FORMULA TAB PO SCH (09:00)
[2020-09-29 09:09] LABS: ALC (manual) 0.98 K/uL (1.2-3.4); Basophils # (manual) 0.06 K/uL (0-0.2); Blast # (manual) 0.06 K/uL (0-0); Lymphocytes # (manual) 0.98 K/uL (1.2-3.4); Lymphocytes % (manual) 16.7 %; Monocytes # (manual) 1.16 K/uL (0.11-0.59); Monocytes % (manual) 19.8 %; Neutrophils % (manual) 61.5 %
[2020-09-29] MEDS: INSULIN ASPART 100 UNITS/ML 3 ML PEN SC SCH ×2 (09:16→12:55)
[2020-09-29] MEDS: LIDOCAINE 5% 1 PATCH TD SCH (10:29)
--- NOTE | 2020-09-29 11:13 | Medical Student Progress Note ---
Date of Service September 29, 2020 Assessment & Plan (1) H/O splenectomy: Plan: -Patient awake and alert-feeling better -H&H stable (Hgb 8.8, Hct 27), platelets 126k vs 111 09/28 -Continue trending CBC as an outpatient -Consider Procrit in the future if H&H doesn't appropriately rise -Drain has 50 to 60 cc of serosanguineous fluid per 24 hours-leave drain -We will likely leave drain on discharge-patient may need extended care until he gets stronger -Patient's pain well controlled; managed with oxycodone 10 mg PO q4 PRN, but has not needed -Increased PO intake; continue encouraging increased intake at [facility] and as an outpatient -Multivitamin PO recommended -No bowel movement in days -Continue to monitor as an outpatient; implement trial of laxative -Continue home atorvastatin, ASA, metoprolol (2) Multiple rib fractures: Encounter type: initial encounter Fracture type: closed Laterality: left Qualified Code(s): S22.42XA - Multiple fractures of ribs, left side, initial encounter for closed fracture (3) Pancytopenia: (4) Diabetes: Diabetes mellitus complication status: without complication Diabetes mellitus lobsterman insulin use: without lobsterman use Diabetes mellitus type: type 2 Qualified Code(s): E11.9 - Type 2 diabetes mellitus without complications (5) Hypertension: Hypertension type: essential hypertension Qualified Code(s): I10 - Essential (primary) hypertension (6) Coronary artery disease: Associated angina: without angina Coronary Disease-Associated Artery/Lesion type: mohegan artery Hoh vs. transplanted heart: mohegan heart Qualified Code(s): I25.10 - Atherosclerotic heart disease of mohegan coronary artery without angina pectoris Admission and Anticipated Discharge Date Admission Date: September 23, 2020 Subjective Upon exam today, Jhony is sitting up in bed reading the newspaper. Says he's feeling better today than yesterday and has been able to move a bit better in bed, which had been very painful days prior. His pain is well-controlled and minimal. Today, he speaks about having some sputum production that has worsened since yesterday with coughing, noting that it is more problemsome than the broken ribs and pain from the surgery. Patient says that he hs not been using the incentive spirometer as often as he should while in bed. Jhony has a slightly increased appetite today. He was able to eat two bites of cai and a couple of spoonfuls of rice krispies cereal. He says that if he can reach his daughter, he would try to get her to bring frosted rice krispie's for him to eat, which is what he typically eats at home. Of note, patient says he has still not had a bowel movement in several days, but is not endorsing any specific abdominal pain or constipation. He is a bit more gaseous today than yesterday. He does not like the Miralax in the orange juice and was wondering if there was a different laxative alternative for him to take. Review of Systems Review of Systems: Patient endorses a productive cough and slight chest discomfort with coughing. He denies chest pain, SOB, palpitations, nausea, vomiting, diarrhea, constipation. Constitutional: No fevers. Improvement on weakness. Ear, Nose, Mouth, Throat: Hard of hearing, chronic Gastrointestinal: Denies nausea, vomiting, diarrhea, constipation Psychiatric: Alert and oriented. Physical Exam Physical Exam: Alert and oriented x 3. Thoughts are well organized. Constitutional: WD/WN, vitals as above well developed and average body habitus; not in distress Neck: normal visual inspection Respiratory: normal respiratory effort, lungs clear to auscultation normal respiratory effort; no respiratory distress and no labored breathing Auscultation: lungs clear to auscultation bilaterally Cardiovascular: RRR, no murmur, no edema Rate/Rhythm: regular rate and regular rhythm Gastrointestinal (Abdomen): Inspection/Auscultation: normal bowel sounds, + abdominal surgical incision (clean and intact) and + abdominal surgical drain present (serosanguinous fluid); abdomen not distended Percussion/Palpation: abdomen soft; abdomen nontender Skin: + ecchymosis (arms) Neurologic: moves all extremities and awake; no focal motor deficits Psychiatric: Orientation: alert and oriented x 3 Results & Data ([facility]) Vital Signs (Past 12 Hours) Vital Signs Temp Pulse Resp BP Pulse Ox 09/29/20 07:55 37.0 C 72 18 159/70 H 96 Laboratory Results Laboratory Results WBC 5.86 K/uL (4.8-10.8) 09/29/20 07:38 RBC 2.87 M/uL (4.7-6.1) L 09/29/20 07:38 Hgb 8.8 g/dL (14.0-18.0) L 09/29/20 07:38 Hct 26.4 % (42-52) L 09/29/20 07:38 MCV 92.0 fL (80-100) 09/29/20 07:38 MCH 30.7 pg (25-34) 09/29/20 07:38 MCHC 33.3 g/dL (32-36) 09/29/20 07:38 RDW Std Deviation 50.3 fL (36.4-46.3) H 09/29/20 07:38 RDW Coeff of Leeanna 14.9 % (11.5-14.5) H 09/29/20 07:38 Plt Count 126 K/uL (130-400) L 09/29/20 07:38 MPV 12.5 fL (7.4-10.4) H 09/29/20 07:38 Immature Gran % (Auto) Cancelled 09/27/20 05:55 Neut % (Auto) Cancelled 09/27/20 05:55 Lymph % (Auto) Cancelled 09/27/20 05:55 [place] % (Auto) Cancelled 09/27/20 05:55 Eos % (Auto) Cancelled 09/27/20 05:55 Baso % (Auto) Cancelled 09/27/20 05:55 Neut # (Auto) Cancelled 09/27/20 05:55 Lymph # (Auto) Cancelled 09/27/20 05:55 [place] # (Auto) Cancelled 09/27/20 05:55 Eos # (Auto) Cancelled 09/27/20 05:55 Baso # (Auto) Cancelled 09/27/20 05:55 Immature Gran # (Auto) Cancelled 09/27/20 05:55 Absolute Nucleated RBC 3.96 K/uL (0-0) H 09/29/20 07:38 Nucleated RBC % (auto) 67.5 % 09/29/20 07:38 Neutrophils % (Manual) 61.5 % 09/29/20 07:38 Band Neutrophils % Cancelled 09/27/20 05:55 Lymphocytes % (Manual) 16.7 % 09/29/20 07:38 Prolymphocyte % Cancelled 09/27/20 05:55 Reactive Lymphs % (Man) Cancelled 09/27/20 05:55 Monocytes % (Manual) 19.8 % 09/29/20 07:38 Eosinophils % (Manual) 2.0 % 09/28/20 07:19 Basophils % (Manual) 1.0 % 09/29/20 07:38 Metamyelocytes % (Man) Cancelled 09/27/20 05:55 Myelocytes % (Man) Cancelled 09/27/20 05:55 Promyelocytes % (Man) Cancelled 09/27/20 05:55 Blast Cells % (Manual) 1.0 % 09/29/20 07:38 Plasma Cell % (Manual) Cancelled 09/27/20 05:55 Other Cells % 1.0 % 09/27/20 07:48 Nucleated RBC % Cancelled 09/27/20 05:55 Neutrophils # (Manual) 3.60 K/uL (1.4-6.5) 09/29/20 07:38 Band Neutrophils # Cancelled 09/27/20 05:55 Total Absolute Neuts 3.60 K/uL (1.4-6.5) 09/29/20 07:38 Lymphocytes # (Manual) 0.98 K/uL (1.2-3.4) L 09/29/20 07:38 Prolymphocyte # Cancelled 09/27/20 05:55 Reactive Lymphs # Cancelled 09/27/20 05:55 Total Abs Lymphocytes 0.98 K/uL (1.2-3.4) L 09/29/20 07:38 Monocytes # (Manual) 1.16 K/uL (0.11-0.59) H 09/29/20 07:38 Eosinophils # (Manual) 0.13 K/uL (0-0.5) 09/28/20 07:19 Basophils # (Manual) 0.06 K/uL (0-0.2) 09/29/20 07:38 Metamyelocytes # (Man) Cancelled 09/27/20 05:55 Myelocytes # (Manual) Cancelled 09/27/20 05:55 Promyelocytes # (Man) Cancelled 09/27/20 05:55 Blast Cells # (Man) 0.06 K/uL (0-0) H 09/29/20 07:38 Plasma Cell # (Manual) Cancelled 09/27/20 05:55 Other Cells # 0.07 K/uL (0-0) H 09/27/20 07:48 Nucleated RBCs # (Man) Cancelled 09/27/20 05:55 Hypersegmented Neuts Cancelled 09/27/20 05:55 Hyposegmented Neuts Cancelled 09/27/20 05:55 Hypogranular Neuts Cancelled 09/27/20 05:55 Large Granular Lymphs Cancelled 09/27/20 05:55 # Lrg Granular Lymphs Cancelled 09/27/20 05:55 Hairy Cells Cancelled 09/27/20 05:55 Smudge Cells Cancelled 09/27/20 05:55 Toxic Granulation Cancelled 09/27/20 05:55 Toxic Vacuolation Cancelled 09/27/20 05:55 Dohle Bodies Cancelled 09/27/20 05:55 Israel Rods Cancelled 09/27/20 05:55 Platelet Estimate Cancelled 09/27/20 05:55 Hypogranular Platelets Cancelled 09/27/20 05:55 Clumped Platelets Cancelled 09/27/20 05:55 Giant Platelets Cancelled 09/27/20 05:55 Platelet Satelliting Cancelled 09/27/20 05:55 RBC Morphology Unremarkable 09/28/20 07:19 Polychromasia Cancelled 09/27/20 05:55 Hypochromasia Cancelled 09/27/20 05:55 Poikilocytosis Cancelled 09/27/20 05:55 Basophilic Stippling Cancelled 09/27/20 05:55 Anisocytosis Cancelled 09/27/20 05:55 Microcytosis Cancelled 09/27/20 05:55 Macrocytosis Cancelled 09/27/20 05:55 Spherocytes Cancelled 09/27/20 05:55 Pappenheimer Bodies Cancelled 09/27/20 05:55 Sickle Cells Cancelled 09/27/20 05:55 Target Cells Cancelled 09/27/20 05:55 Tear Drop Cells Cancelled 09/27/20 05:55 Ovalocytes Cancelled 09/27/20 05:55 Stomatocytes Cancelled 09/27/20 05:55 [place] Bodies Cancelled 09/27/20 05:55 Echinocytes Cancelled 09/27/20 05:55 Acanthocytes (Spur) Cancelled 09/27/20 05:55 Rouleaux Cancelled 09/27/20 05:55 RBC Agglutinates Cancelled 09/27/20 05:55 Schistocytes Cancelled 09/27/20 05:55 RBC Morph Comment Cancelled 09/27/20 05:55 Sezary Cell Cancelled 09/27/20 05:55 PT 12.3 Seconds (9.0-12.0) H 09/23/20 16:49 INR 1.2 (0.9-1.1) H 09/23/20 16:49 APTT 31.3 Seconds (21.0-31.0) H 09/23/20 18:06 PTT Ratio 1.2 09/23/20 18:06 Sodium 140 mmol/L (136-145) 09/29/20 07:38 Potassium 3.8 mmol/L (3.5-5.1) 09/29/20 07:38 Chloride 112 mmol/L (98-107) H 09/29/20 07:38 Carbon Dioxide 19 mmol/L (21-32) L 09/29/20 07:38 Anion Gap 10.0 (3-11) 09/29/20 07:38 BUN 20 mg/dl (7-18) H 09/29/20 07:38 Creatinine 0.92 mg/dl (0.6-1.4) 09/29/20 07:38 Est Cr Clr Drug Dosing 55.5 ml/min 09/29/20 07:38 Est GFR ( Amer) 85.8 ml/min 09/29/20 07:38 Est GFR (Non-Af Amer) 74.0 ml/min 09/29/20 07:38 BUN/Creatinine Ratio 21.5 (10-20) H 09/29/20 07:38 Glucose 107 mg/dl (70-99) H 09/29/20 07:38 POC Glucose 114 mg/dl (70-99) H 09/29/20 08:34 Estimat Average Glucose 140 mg/dl 09/24/20 03:32 Hemoglobin A1c 6.5 % (4.5-5.6) H 09/24/20 03:32 Calcium 7.8 mg/dl (8.5-10.1) L 09/29/20 07:38 Phosphorus 2.8 mg/dl (2.5-4.9) D 09/25/20 08:38 Magnesium 2.0 mg/dl (1.8-2.4) 09/24/20 03:32 Total Bilirubin 0.6 mg/dl (0.2-1) 09/25/20 08:38 AST 14 U/L (15-37) L 09/25/20 08:38 ALT 12 U/L (12-78) 09/25/20 08:38 Alkaline Phosphatase 63 U/L (45-117) 09/25/20 08:38 Troponin I < 0.015 ng/ml (0-0.045) 09/23/20 11:44 Total Protein 5.7 gm/dl (6.4-8.2) L D 09/25/20 08:38 Albumin 2.5 gm/dl (3.4-5.0) L 09/25/20 08:38 Globulin 3.2 gm/dl (2.5-4.0) 09/25/20 08:38 Albumin/Globulin Ratio 0.8 (0.9-2) L 09/25/20 08:38 Lipase 65 U/L (73-393) L 09/29/20 07:38 Urine Color Yellow 09/24/20 02:00 Urine Appearance Clear (Clear) 09/24/20 02:00 Urine pH 5.0 (4.5-7.5) 09/24/20 02:00 Ur Specific [place] 1.023 (1.000-1.030) 09/24/20 02:00 Urine Protein Trace (Negative) H 09/24/20 02:00 Urine Glucose (UA) Negative (Negative) 09/24/20 02:00 Urine Ketones Trace (Negative) H 09/24/20 02:00 Urine Blood 1+ (Negative) H 09/24/20 02:00 Urine Nitrite Negative (Negative) 09/24/20 02:00 Urine Bilirubin Negative (Negative) 09/24/20 02:00 Urine Urobilinogen Negative (Negative) 09/24/20 02:00 Ur Leukocyte Esterase Negative (Negative) 09/24/20 02:00 Urine WBC (Auto) 1-5 /hpf (0-5) 09/24/20 02:00 Urine RBC (Auto) 5-10 /hpf (0-4) H 09/24/20 02:00 U Hyaline Cast (Auto) 5-10 /lpf (0-5) H 09/24/20 02:00 U Epithel Cells (Auto) 20-30 /lpf (0-5) H 09/24/20 02:00 Urine Bacteria (Auto) Negative (Negative) 09/24/20 02:00 Granular Casts 1-5 /lpf (0) H 09/24/20 02:00 Nasal Screen MRSA (PCR) Negative (Negative) 09/23/20 17:00 Blood Type O Negative 09/23/20 14:08 Antibody Screen NEGATIVE 09/23/20 14:08 Crossmatch See Detail 09/23/20 14:[address] 09/23/20 12:04 CT cervical spine wo con CT DOSE: 383.13 mGycm CLINICAL HISTORY: 89 years-old Male with fall. Acute neck pain status post fall COMPARISON: CT cervical spine 07/23/2020 TECHNIQUE: Multiple axial CT images of the cervical spine were obtained without contrast. A dose lowering technique was utilized adhering to the principles of ALARA. FINDINGS: Chronic appearing fractures of the right C1 facet is unchanged. 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 There is severe degeneration of the C1-C2 articulation with partial bony fusion. Unchanged alignment of the occipital atlantal articulation. There is severe multilevel intervertebral disc space narrowing and facet arthrosis with at least partial degenerative related bony fusion noted at C3-T1. Unchanged grade 1 anterolisthesis C4 on C5 and C5 on C6. No acute fracture or subluxation. Evaluation of the central canal and neuroforamina is better assessed by MRI. Multilevel neuroforaminal narrowing. No pneumothorax. No prevertebral edema. Calcified plaque of the carotid bulbs. IMPRESSION: 1. No acute fracture or subluxation. 2. 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 ACT 112: Negative or not required by law. The above report was generated using voice recognition software. It may contain grammatical, syntax or spelling errors. Electronically signed by: Conor Rivera M.D. 09/23/2020 1:22 PM Chest X-Ray 09/23/20 12:04 XR chest 1V portable CLINICAL HISTORY: Fall. COMPARISON STUDY: Chest CT July 23, 2020. FINDINGS: Lung volumes are normal. Lungs are clear. There is no pneumothorax or pleural effusion. Cardiac size is normal. Mediastinal contours are normal. There is no evidence for pulmonary edema. There are median sternotomy wires. Skinfold projects over the right chest. IMPRESSION: No acute cardiopulmonary findings. ACT 112: Negative or not required by law. Electronically signed by: Jabari Urias M.D. 09/23/2020 12:[address] 09/23/20 12:04 CT head/brain wo con CLINICAL HISTORY: 89 years-old Male with fall. Acute head injury status post fall. TECHNIQUE: Multiple axial CT images of the head were obtained without contrast. A dose lowering technique was utilized adhering to the principles of ALARA. CT DOSE: 638.56 mGycm COMPARISON: Head CT 07/24/2020 FINDINGS: No acute intracranial hemorrhage, midline shift, intracranial mass, hydrocephalus, territorial ischemia or abnormal extra-axial collection. Age- related involutional changes with ex vacuo ventriculomegaly. Cerebral vascular calcifications. The calvarium is intact. Prior bilateral lens repair. The paranasal sinuses, mastoid air cells, and middle ear cavities are clear. IMPRESSION: No acute intracranial abnormality or calvarial fracture. ACT 112: Negative or not required by law. The above report was generated using voice recognition software. It may contain grammatical, syntax or spelling errors. Electronically signed by: Conor Rivera M.D. 09/23/2020 1:13 PM Abdomen/Pelvis CT 09/23/20 12:43 CT OF THE ABDOMEN AND PELVIS WITHOUT CONTRAST CLINICAL HISTORY: Fall. Left-sided pain. COMPARISON STUDY: CT of the abdomen and pelvis July 23, 2020. TECHNIQUE: Axial images of the abdomen and pelvis were obtained without IV contrast. Images were reviewed in the axial, sagittal, and coronal planes. Automated exposure control was utilized for the study. A dose lowering technique was utilized adhering to the principles of ALARA. FINDINGS: Please note that the chest CT will be reported separately. Note is made of multiple acute left lower rib fractures. There is an acute mildly displaced fracture of the lateral left 10th rib. There is also an acute nondisplaced fracture the posterior left 10th rib. Acute nondisplaced fracture of the posterior left 11th rib is noted. There is an acute nondisplaced fracture of the lateral left ninth rib. No pneumoperitoneum is present. Note is made of hyperdense clot adjacent to the spleen. Although suboptimally assessed on this unenhanced exam, there is a suspected splenic laceration that measures approximately 2.9 cm in length. Mild to moderate associated hemoperitoneum is present. There is also hyperdense clot within left upper quadrant adjacent to several bowel loops. This probably originates from the splenic laceration. There is hemorrhage within the pelvis, likely from the splenic laceration. Colonic diverticulosis is noted without evidence for acute diverticulitis. Perihepatic fluid also represents hemoperitoneum. There is no evidence for traumatic injury to the liver on this unenhanced exam. Unenhanced images of the adrenal glands and pancreas are unremarkable. There are small bilateral renal calculi. There are no ureteral]. Old L1 compression fracture is present. No acute lumbar spine or pelvic fracture is noted. IMPRESSION: 1. Mild to moderate hemoperitoneum, likely due to a splenic laceration, suboptimally assessed on this unenhanced CT. In addition, hyperdense clot within the upper quadrant adjacent to several bowel loops. This hemorrhage likely originates from the splenic laceration. Coexistent bowel injury could appear similar although is considered less likely. Close clinical follow-up is recommended. Findings discussed with Dr. Leon at time of dictation. 2. Multiple acute left lower rib fractures, as described above. ACT 112: Negative or not required by law. Electronically signed by: Jabari Urias M.D. 09/23/2020 1:[address] 09/23/20 12:43 CT chest diagnostic wo con CT DOSE: 950.09 mGycm CLINICAL HISTORY: 89 years-old Male with fall. Acute chest trauma status post fall TECHNIQUE: Multiaxial CT images of the chest were performed without contrast. A dose lowering technique was utilized adhering to the principles of ALARA. COMPARISON: CT abdomen and pelvis of same day, chest CT 07/23/2020 FINDINGS: Unremarkable thyroid. No adenopathy. 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 Extensive mohegan coronary arterial and thoracic aortic calcifications. No pericardial effusion or mediastinal hematoma. Trace pleural effusions. Mild dependent subsegmental bibasilar atelectasis. No pneumothorax, pleural effusion, airspace consolidation or overt pulmonary edema. No definite suspicious pulmonary nodule. Unchanged indeterminate 4 mm solid nodule of the superior segment left lower lobe on image 110. The central airways are patent. Hemoperitoneum of the upper abdomen is noted adjacent to the liver and spleen. Partially imaged heterogeneity of the spleen. Tiny hiatal hernia. Small intramuscular hematomas are noted along the left lateral lower chest wall. Acute minimally displaced fracture of the lateral left ninth acute nondisplaced fractures involving the medial aspects of the left 10th and 11th ribs. There is an additional fracture involving the posterior aspect of the left 11th rib without significant no acute vertebral body fracture identified. IMPRESSION: 1. Acute left-sided rib fractures as above. Partially imaged hemoperitoneum of the upper abdomen. Please refer to the CT abdomen and pelvis study of same day for additional findings. 2. Trace pleural effusions. No pneumothorax. 3. Small acute intramuscular hematomas of the lateral lower left chest wall. 4. Chronic findings as above. ACT 112: Negative or not required by law. Electronically signed by: Conor Rivera M.D. 09/23/2020 1:39 PM Medications Administered Current Inpatient Medications Acetaminophen (Acetaminophen 500 Mg Tab) 1,000 mg PO TID [facility] Stop: 10/26/20 13:59 Last Admin: 09/29/20 08:18 Dose: 1,000 mg Documented by: Dextrose (Dextrose 50% 50 Ml Syringe) 25 - 50 ml IV UD PRN; Protocol PRN Reason: Hypoglycemia Protocol Stop: 10/24/20 14:59 Glucagon (Glucagon For Inj 1 Mg Vial) 1 mg IM UD PRN; Protocol PRN Reason: Hypoglycemia Protocol Stop: 10/24/20 14:59 Glucose (Glucose 40% Gel 15 Gm Tube) 15 - 30 gm PO UD PRN; Protocol PRN Reason: Hypoglycemia Protocol Stop: 10/24/20 14:59 Glucose (Glucose 10 Tabs/Tube) 4 - 8 tabs PO UD PRN; Protocol PRN Reason: Hypoglycemia Protocol Stop: 10/24/20 14:59 Heparin Sodium (Porcine) (Heparin Sod 5,000 Unit/0.5 Ml Vial) 5,000 units SQ Q12 [facility] Stop: 10/25/20 20:59 Last Admin: 09/29/20 08:17 Dose: 5,000 units Documented by: Promethazine HCl 12.5 mg/ (Sodium Chloride) 50.5 mls @ 204 mls/hr IV Q6H PRN PRN Reason: Nausea And Vomiting Stop: 10/23/20 17:36 Naloxone HCl 0.4 mg/ Syringe 4 mls @ 0 mls/min IV UD PRN; Protocol PRN Reason: RESPIRATORY RATE LESS THAN 8 Stop: 10/25/20 14:42 Insulin Aspart (Insulin Aspart 100 Units/Ml 3 Ml Pen) 0 units SC ACHS [facility] Stop: 10/24/20 11:29 Last Admin: 09/29/20 09:16 Dose: Not Given Documented by: Lidocaine (Lidocaine 5% 1 Patch) [facility] [place]: 10/26/20 13:44 Last Admin: 09/29/20 10:29 Dose: Not Given Documented by: Melatonin (Melatonin 3 Mg Tab) 3 mg PO HS PRN PRN Reason: Sleep Stop: 10/27/20 22:22 Last Admin: 09/27/20 22:39 Dose: 3 mg Documented by: Miscellaneous (Carbohydrates For Hypoglycemia ) 15 - 30 gm PO UD PRN PRN Reason: Hypoglycemia Treatment Stop: 10/24/20 14:59 Miscellaneous (Remove Lidoderm Patch) 1 ea N/A DAILY@2100 [facility] Stop: 10/26/20 20:59 Last Admin: 09/28/20 21:30 Dose: 1 ea Documented by: Miscellaneous Information (Pharmacy Glycemic Mgmt Consult) 1 ea N/A UD PRN PRN Reason: Consult Stop: 10/24/20 10:47 Multivitamins/Minerals (Cerovite Adv Formula Tab) 1 tab PO [facility] Stop: 10/29/20 08:59 Last Admin: 09/29/20 08:18 Dose: 1 tab Documented by: Ondansetron HCl (Ondansetron Inj 2 Mg/Ml 2 Ml Vial) 4 mg IV [id number] PRN PRN Reason: Nausea Stop: 10/23/20 17:36 Last Admin: 09/25/20 08:07 Dose: 4 mg Documented by: Oxycodone HCl (Oxycodone Hcl Ir 5 Mg Tab (Immediate Release)) 5 - 10 mg PO Q4HWA PRN PRN Reason: Pain Stop: 10/07/20 17:36 Last Admin: 09/26/20 19:40 Dose: 10 mg Documented by: Pantoprazole Sodium (Pantoprazole 40 Mg Tab) 40 [facility] [place]: 10/24/20 09:44 Last Admin: 09/29/20 08:17 Dose: 40 mg Documented by: Polyethylene Glycol (Polyethylene (Miralax) 17 Gm Pack) 17 gm PO DAILY PRN PRN Reason: Constipation Stop: 10/28/20 13:28 Polyethylene Glycol (Polyethylene (Miralax) 17 Gm Pack) 17 gm PO DAILY [facility] Stop: 10/28/20 13:44 Last Admin: 09/29/20 08:19 Dose: 17 gm Documented by:
[2020-09-29] MEDS ORDERED: INSULIN GLARGINE SOLOSTAR 100 UNITS/ML 3 ML PEN SC ONE (12:30)
[2020-09-29] MEDS: oxyCODONE HCL IR 5 MG TAB (IMMEDIATE RELEASE) PO PRN (15:04)
--- NOTE | 2020-09-29 19:57 | Billing Data ---
Date of Service September 29, 2020 Coding Level of Care Code 38738 Subseq Hosp Care Lvl 3
--- NOTE | 2020-10-15 10:36 | Discharge Summary (DS) ---
DATE OF ADMISSION: 09/23/2020 DATE OF DISCHARGE: 09/29/2020 PRINCIPAL DIAGNOSIS: Ruptured spleen. PROCEDURE: The patient underwent open splenectomy. HISTORY OF PRESENT ILLNESS: The patient is an 89-year-old male who fell in his bathroom and presente d to the Emergency Room with severe left-sided pain and found to have a splenic rupture with hemoperi toneum. He was taken emergently to the operating room on 09/23/2020 where he underwent open splenect ronn. He was subsequently admitted to the ICU and did progress well over the next days, progressing i n both diet and activity and felt stable for discharge on 09/29/2020, to be followed in the surgical clinic within 1-2 weeks. Job ID: [id number]
== END 2020-09-29 15:50 | DRG 799 ==
LOC: ED 11:07 → OR 14:47 → 1E 16:14 → 3N 09-24 14:54

== ENCOUNTER 2020-10-17 16:55 | Inpatient (IN) ==
[2020-10-17] MEDS ORDERED: SODIUM CHLORIDE 0.9% 1000ML 1,000 ML IV ONE (17:18)
--- NOTE | 2020-10-17 17:23 | Emergency Department Note ---
Impression & Plan Elevated troponin, Hx of splenectomy, Weakness, Abnormal ECG, Pleural effusion ED Provider Note NAME: JOSTIN MAY AGE: 89 SEX: M : 1930 ARRIVES VIA: Ambulance INFORMANT: Patient ED PROVIDER(S): Juvencio Leon DO CHIEF COMPLAINT: Weakness HPI: Patient is an 89-year-old male who presents to the ER for weakness and 2 near falls. Patient had a splenectomy and had rib fractures following a trauma back in mid September. He notes that he was lowered to the ground twice today. He feels so weak that he cannot get up and move around. He denies any headache or change in vision. No chest pain other than his chronic rib pain from the fractures. No new abdominal pain since splenectomy. His pain has been improving over the past 2 weeks. No dysuria, urgency, or frequency. No cough or runny nose. No other exacerbating or remitting factors. ROS: See above HPI for pertinent positives & negatives. A total of 10 systems reviewed and were otherwise negative. PAST MEDICAL HISTORY:See Below PAST SURGICAL HISTORY:See Below FAMILY HISTORY:See Below SOCIAL HISTORY:See Below HOME MEDICATIONS:See Below ALLERGIES:See Below VITALS:See Below PHYSICAL EXAMINATION: GENERAL: Sitting up in bed, alert, disheveled, chronically ill-appearing, no acute distress EYE EXAM: normal conjunctiva. PERRL and EOM's grossly intact. OROPHARYNX: no exudate, no erythema, lips, buccal mucosa, and tongue normal and mucous membranes are moist NECK: supple, no nuchal rigidity, no adenopathy, non-tender LUNGS: Clear to auscultation. Normal chest wall mechanics HEART: no murmurs, S1 normal and S2 normal ABDOMEN: abdomen soft, non-tender, with incision in the left upper quadrant with Steri-Strips in place. Incision is clean dry and intact. Normo-active bowel sounds, no masses, no rebound or guarding. BACK: Back is symmetrical on inspection and there is no deformity, no midline tenderness, no CVA tenderness. UPPER EXTREMITIES: upper extremities are grossly normal. LOWER EXTREMITIES: No pitting edema. NEURO EXAM: Normal sensorium, cranial nerves II-XII grossly intact, normal speech, no gross weakness of arms, no gross weakness of legs. No drift. Finger to nose intact. Gross sensation intact. MEDICAL DECISION MAKING: Patient is an 89-year-old male who presents the ER for weakness. His belly pain is actually improving status post splenectomy. IV was established blood was obtained. Labs show no significant leukocytosis. Mild anemia at 7.6. BMP with slightly elevated creatinine. Glucose slightly elevated at 212. Troponin sonny vated at 0.748. Covid was negative. CT of the chest shows no PEs but large pleural effusion. CT abdomen pelvis showed small fluid collection which I favor secondary to splenic laceration and hemoperitoneum 2 weeks ago. Patient has no fevers or white count. Patient was discussed with the hospitalist for further evaluation. He denied any chest pain or shortness of breath. His EKG was showing diffuse ST segment depressions. This was consistent with the EKG in July. Triage Nursing notes reviewed. Limited review of prior medical records performed Vital Signs: reviewed and remarkable for tachy Differential diagnosis: Infection, dehydration, metabolic abnormality, hypo/hyperglycemia, electrolyte disturbance, anemia, hypoxia, cardiac sources, intracerebral event, toxicologic, neurologic, as well as other pathologies. ER treatment provided: See below Diagnostics interpreted by me: ECG: Sinus tachycardia rate 126 Normal axis No PVCs ST depressions in the inferior anterior and lateral leads with slight elevation in V1 and V2 which consistent with previous on July Cardiac Monitoring: An order was placed for continuous cardiac monitoring. The monitor shows a rate of 120 with sinus rhythm. Laboratory studies: As stated above and show below. 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, stage 4 (severe) Confusion COPD (chronic obstructive pulmonary disease) COVID-19 04/2020 Fall Gastric ulcer Gastritis and duodenitis Hematuria History of acute renal failure KIDNEY STONE BLOCKAGE 2 YR AGO/NO PROBLEMS SINCE History of kidney stones Hx of neck injury HX BROKEN NECK, 1 ST AND SECOND VERTEBRAE - 2 YRS AGO Hx of seasonal allergies Hydronephrosis Hyperlipidemia Hypertension Renal colic Restless leg syndrome Weakness Surgical History Hx of appendectomy Hx of cardiac catheterization BEFORE BYPASS SURGERY/BLOCKAGES Hx of colonoscopy 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 Family History Other Hypertension Social History Smoking Status: Never smoker Tobacco Type: Cigarettes Second Hand Exposure: No; Hx Alcohol Use: No Hx Substance Use: No Preferred Language: Yakut Communication Ability: Effective Long Winder Tender Required: No Beliefs That Will Affect Care: None marital status: / Current Living Situation: Family Current Living Situation Comment: Daugher and son-in-law live with patient Feels Safe at Home: Yes Assistive Devices: Walker Allergies Allergies Allergy/AdvReac Type Severity Reaction Status Date / Time cefuroxime Allergy Intermediate Hives Verified 10/17/20 19:20 Penicillins Allergy Mild Hives Verified 10/17/20 19:20 olanzapine AdvReac Intermediate Hallucinations, Verified 10/17/20 19:20 confusion and panic Home Meds Home Medications Medication Instructions Recorded Confirmed aspirin 81 mg tablet,delayed 81 mg PO QAM 01/29/18 10/17/20 release atorvastatin 80 mg tablet 80 mg PO QAM 01/29/18 10/17/20 mirabegron 25 mg tablet,extended 25 mg PO HS 01/29/18 10/17/20 release 24 hr (Myrbetriq) pantoprazole 40 mg tablet,delayed 40 mg PO QAM 01/29/18 10/17/20 release glipizide 5 mg tablet 10 mg PO QAM 03/28/20 10/17/20 hydroxyzine HCl 10 mg tablet 10 mg PO DIRECTED PRN 03/28/20 10/17/20 sertraline 100 mg tablet 100 mg PO QAM 03/28/20 10/17/20 cyanocobalamin (vitamin B-12) 500 500 mcg PO QAM 04/20/20 10/17/20 mcg tablet (Vitamin B-12) tamsulosin 0.4 mg capsule 0.4 mg PO HS 04/20/20 10/17/20 thiamine HCl (vitamin B1) 100 mg 100 mg PO QAM 04/20/20 10/17/20 tablet (Vitamin B-1) umeclidinium 62.5 mcg-vilanterol 1 puffs INH QAM 04/20/20 10/17/20 25 mcg/actuation powdr for inhalation (Anoro Ellipta) vitamins A,C,X-suav-iyonsj 14,320 1 cap PO AMHS 04/20/20 10/17/20 unit-226 mg-200 unit capsule (PreserVision AREDS) metoprolol succinate 25 mg 12.5 mg PO HS 07/23/20 10/17/20 tablet,extended release 24 hr quetiapine 25 mg tablet (Seroquel) 25 mg PO HS 08/17/20 10/17/20 Previous Rx's Medication Instructions Recorded finasteride 5 mg tablet 5 mg PO HS #90 tab 03/19/19 Results & Data (ED) Vital Signs Vital Signs - 24 hr 10/17/20 17:59 Temperature 36.5 C Temperature Source Oral Pulse Rate 125 H Pulse Rhythm Regular Pulse Strength Normal Respiratory Rate 18 Respiratory Effort / Characteristics Non-Labored Spontaneous Respiratory Depth Normal Respiratory Pattern Regular Blood Pressure 109/63 Blood Pressure Mean 78 Blood Pressure Position Sitting Pulse Oximetry 97 Oxygen Delivery Method Room Air Sepsis Recent Fever Within 48 Hours No Sepsis New/Unexplained Change in Mental Status N/A Sepsis Action Taken by Nursing No Action Required Laboratory Data Result diagrams: 10/17/20 17:33 10/17/20 17:33 Lab Results 10/17/20 10/17/20 10/17/20 Range/Units 17:33 17:33 17:42 WBC 10.60 (4.8-10.8) K/uL RBC 2.48 L (4.7-6.1) M/uL Hgb 7.6 L (14.0-18.0) g/dL POC Hgb 7.8 L (14.0-18.0) g/dl Hct 23.7 L (42-52) % POC Hct 23 L (42-52) % MCV 95.6 (80-100) fL MCH 30.6 (25-34) pg MCHC 32.1 (32-36) g/dL RDW Std Deviation 51.3 H (36.4-46.3) fL RDW Coeff of Leeanna 15.2 H (11.5-14.5) % Plt Count 173 (130-400) K/uL MPV 13.1 H (7.4-10.4) fL Absolute Nucleated RBC 6.69 H (0-0) K/uL Nucleated RBC % (auto) 63.0 % Neutrophils % (Manual) 73.8 % Lymphocytes % (Manual) 22.3 % Monocytes % (Manual) 2.9 % Metamyelocytes % (Man) 1.0 % Neutrophils # (Manual) 7.82 H (1.4-6.5) K/uL Total Absolute Neuts 7.82 H (1.4-6.5) K/uL Lymphocytes # (Manual) 2.36 (1.2-3.4) K/uL Total Abs Lymphocytes 2.36 (1.2-3.4) K/uL Monocytes # (Manual) 0.31 (0.11-0.59) K/uL Metamyelocytes # (Man) 0.11 H (0-0) K/uL Hypersegmented Neuts 1+ Giant Platelets 1+ Polychromasia 1+ Hypochromasia Present Basophilic Stippling 1+ Ovalocytes 1+ POC Sodium 137 (135-144) mmol/L Sodium 137 (136-145) mmol/L POC Potassium 4.1 (3.3-5.0) mmol/L Potassium 4.1 (3.5-5.1) mmol/L POC Chloride 101 (101-112) mmol/L Chloride 107 (98-107) mmol/L Carbon Dioxide 24 (21-32) mmol/L POC Total CO2 19 L (24-31) mmol/L Anion Gap 7.0 (3-11) POC Anion Gap 22.0 (16-25) mmol/L POC BUN 31 H (7-18) mg/dl BUN 32 H (7-18) mg/dl Creatinine 1.46 H (0.6-1.4) mg/dl POC Creatinine 1.5 H (0.6-1.3) mg/dl Est Cr Clr Drug Dosing Not Reportable Est GFR ( Amer) 49.1 ml/min Est GFR (Non-Af Amer) 42.3 ml/min BUN/Creatinine Ratio 21.7 H (10-20) Glucose 212 H (70-99) mg/dl POC Glucose (other) 212 H (70-99) mg/dl Calcium 8.5 (8.5-10.1) mg/dl POC Ioniz Calcium Collins 1.22 (1.12-1.32) mmol/l Total Bilirubin 0.4 (0.2-1) mg/dl AST 23 (15-37) U/L ALT 28 (12-78) U/L Alkaline Phosphatase 97 (45-117) U/L Troponin I 0.748 H* (0-0.045) ng/ml Total Protein 6.2 L (6.4-8.2) gm/dl Albumin 2.6 L (3.4-5.0) gm/dl Globulin 3.6 (2.5-4.0) gm/dl Albumin/Globulin Ratio 0.7 L (0.9-2) Lipase 56 L (73-393) U/L COVID-19 Eval Order SARS-CoV-2 (PCR) (Negative) 10/17/20 10/17/20 Range/Units 18:06 18:06 WBC (4.8-10.8) K/uL RBC (4.7-6.1) M/uL Hgb (14.0-18.0) g/dL POC Hgb (14.0-18.0) g/dl Hct (42-52) % POC Hct (42-52) % MCV (80-100) fL MCH (25-34) pg MCHC (32-36) g/dL RDW Std Deviation (36.4-46.3) fL RDW Coeff of Leeanna (11.5-14.5) % Plt Count (130-400) K/uL MPV (7.4-10.4) fL Absolute Nucleated RBC (0-0) K/uL Nucleated RBC % (auto) % Neutrophils % (Manual) % Lymphocytes % (Manual) % Monocytes % (Manual) % Metamyelocytes % (Man) % Neutrophils # (Manual) (1.4-6.5) K/uL Total Absolute Neuts (1.4-6.5) K/uL Lymphocytes # (Manual) (1.2-3.4) K/uL Total Abs Lymphocytes (1.2-3.4) K/uL Monocytes # (Manual) (0.11-0.59) K/uL Metamyelocytes # (Man) (0-0) K/uL Hypersegmented Neuts Giant Platelets Polychromasia Hypochromasia Basophilic Stippling Ovalocytes POC Sodium (135-144) mmol/L Sodium (136-145) mmol/L POC Potassium (3.3-5.0) mmol/L Potassium (3.5-5.1) mmol/L POC Chloride (101-112) mmol/L Chloride (98-107) mmol/L Carbon Dioxide (21-32) mmol/L POC Total CO2 (24-31) mmol/L Anion Gap (3-11) POC Anion Gap (16-25) mmol/L POC BUN (7-18) mg/dl BUN (7-18) mg/dl Creatinine (0.6-1.4) mg/dl POC Creatinine (0.6-1.3) mg/dl Est Cr Clr Drug Dosing Est GFR ( Amer) ml/min Est GFR (Non-Af Amer) ml/min BUN/Creatinine Ratio (10-20) Glucose (70-99) mg/dl POC Glucose (other) (70-99) mg/dl Calcium (8.5-10.1) mg/dl POC Ioniz Calcium Collins (1.12-1.32) mmol/l Total Bilirubin (0.2-1) mg/dl AST (15-37) U/L ALT (12-78) U/L Alkaline Phosphatase (45-117) U/L Troponin I (0-0.045) ng/ml Total Protein (6.4-8.2) gm/dl Albumin (3.4-5.0) gm/dl Globulin (2.5-4.0) gm/dl Albumin/Globulin Ratio (0.9-2) Lipase (73-393) U/L COVID-19 Eval Order Covid19 at [facility] SARS-CoV-2 (PCR) NEGATIVE (Negative) Administered Medications Discontinued Medications Famotidine (Famotidine 20mg/5ml Iv Push) 20 mg IV ONE STA Stop: 10/17/20 20:01 Last Admin: 10/17/20 20:04 Dose: 20 mg Documented by: [id number] Sodium Chloride (Nss 1000ml) 1,000 mls @ 999 mls/hr IV .Q1H1M ONE Stop: 10/17/20 18:18 Last Infusion: 10/17/20 20:11 Dose: 0 mls/hr Documented by: [id number] Admin: 10/17/20 17:48 Dose: 999 mls/hr Documented by: [id number] Ioversol (Optiray 320 125ml) 117 ml IV ONCE ONE Stop: 10/17/20 18:42 Last Admin: 10/17/20 18:41 Dose: 117 ml Documented by: [id number] Imaging Data Radiologist's Impression: Chest CTA 10/17/20 17:18 CT ANGIOGRAM OF THE CHEST CLINICAL HISTORY: PE COMPARISON STUDY: September 23, 2020 TECHNIQUE: Following the IV administration of 117 mL of Optiray, CT angiogram of the thorax was performed from the thoracic inlet to the lung bases utilizing the pulmonary embolus protocol. Images are reviewed in the axial, sagittal, and coronal planes. IV contrast was administered without complication. MIP imaging was performed. A dose lowering technique was utilized adhering to the principles of ALARA. CT DOSE: FINDINGS: Adequate opacification within main pulmonary artery is seen. Evaluation of peripheral branches of the pulmonary artery is slightly limited due to motion artifact. No definite central pulmonary embolus is seen. Main pulmonary artery is normal in caliber. No evidence of right heart strain. Interval development of pericardial collection at the inferior aspect of the right pericardium (4/58) heart is normal in size. Heavy calcifications of the coronary arteries are seen. No pathologically enlarged axillary mediastinal or hilar lymph nodes were visualized. Thoracic aorta is normal in caliber with extensive partial calcified plaques within its wall and luminal irregularity. Few possible ulcerative plaques are seen within the aortic arch. No evidence of dissection. Visualized portion of thyroid gland shows no evidence of focal lesions. Esophagus is normal. Tracheobronchial tree is patent. Interval development of large left pleural effusion and small right pleural effusion associated with compressive atelectasis at bilateral bases. Evaluation of lung parenchyma is significantly limited due to motion artifact. Interval development of focal area of groundglass attenuation at subpleural aspect of the right upper lobe was not seen on recent prior study and might represent infectious/inflammatory process (4/222). IMPRESSION: 1. No evidence of central pulmonary embolus. Evaluation of peripheral branches of pulmonary artery is limited due to motion artifact. 2. Interval development of mild collection within inferior aspect of the pericardium. Please correlate above-mentioned findings with results of echocardiography. 3. Interval development of pleural effusion associated with atelectasis at dependent portions of bilateral lower lobes. 4. Interval development of focal consolidative opacity peripheral aspect of the right upper lobe which could represent infectious/inflammatory etiology versus others. Attention on follow-up imaging. 5. Extensive calcifications of aortic wall without dissection or aneurysmal dilatation. Few areas of calcified plaques are seen within the aortic arch. 6. The rest of findings as above. ACT 112: Negative or not required by law. The above report was generated using voice recognition software. It may contain grammatical, syntax or spelling errors. Electronically signed by: Makayla Parish DO 10/17/2020 7:52 PM Abdomen/Pelvis CT 10/17/20 17:26 CT abd pelvis IV con only CLINICAL HISTORY: not feeling well s/p splenectomy COMPARISON STUDY: September 23, 2020 TECHNIQUE: A dose lowering technique was utilized adhering to the principles of ALARA. CT DOSE: 709.86 mGy.cm FINDINGS: Lower chest: Interval development of bilateral pleural effusion and atelectasis at dependent portions of bilateral lower lobes.. Liver: The contrast-enhanced liver is normal in size, contour, and attenuation. Minimal prominence of the central intrahepatic biliary ducts are seen. Gallbladder: Is fluid-filled with mild diffuse thickening of its wall. Interval resolution of previously seen ascites. Spleen: Interval splenectomy. There is 1.6 x 6.4 x 0.7 cm crescentic area of fluid accumulation is seen under left hemidiaphragm with surrounding thick and slightly enhancing wall which could represent postoperative collection or developing abscess. No definite gas collection is seen within left upper quadrant. Pancreas: Unremarkable. Adrenal glands: Unremarkable. Kidneys: There is symmetric renal cortical enhancement. The kidneys are normal in size without hydronephrosis.4 mm nonobstructive calculus is seen within left renal pelvis. Pelvic viscera: Urinary bladder is adequately filled with urine. There is diffuse thickening of urinary bladder wall which was also seen on prior study without significant surrounding inflammatory changes and enlarged prostate gland. Bowel: Bowel loops are nondilated. Appendix is not well seen. Extensive diverticulosis of ascending, descending and sigmoid colon is seen without evidence of diverticulitis. Peritoneum: There is no intraperitoneal free air or abdominal ascites. Vasculature: Abdominal aorta is normal in caliber with extensive calcifications of its wall. Adenopathy: None. Skeletal structures: Osteopenia. Multilevel degenerative changes of the spine. Stable compression fracture deformity of the L2 and mild anterolisthesis of L5 on S1. Post sternotomy changes are partially visualized. IMPRESSION: 1. Status post splenectomy. Questionable crescentic fluid collection is seen on the left hemidiaphragm with thick wall which could represent postoperative col lection or abscess. No definite free gas is seen. 2. Interval development of bilateral pleural effusion and atelectasis at dependent portions of bilateral lower lobes. 3. Minimal prominence of the central intrahepatic biliary ducts. Mild diffuse prominence of the gallbladder wall which might represent developing cholecystitis versus other etiology. Please correlate above-mentioned findings with right upper quadrant pain. 4. Nondilated loops of bowel. Diverticulosis without diverticulitis. 5. Nonobstructive nephrolithiasis on the left. 6. Osteopenia. Stable compression fracture deformity of L2. 7. The rest of findings as above. ACT 112: Negative or not required by law. The above report was generated using voice recognition software. It may contain grammatical, syntax or spelling errors. Electronically signed by: Makayla Parish DO 10/17/2020 7:38 PM Discharge Plan Visit Data Chief Complaint: Weakness Stated Complaint: WEAKNESS ED Provider: Juvencio Leon Discharge Problem: Elevated troponin, Hx of splenectomy, Weakness, Abnormal ECG, Pleural effusion Patient Disposition: Admitted As Inpatient Discharge Instructions Interventions: ED Discharge Assessment Last Done: 10/17/20 20:29
[2020-10-17 17:55] LABS: iSTAT Creatinine 1.5 mg/dl (0.6-1.3); iSTAT Hemoglobin 7.8 g/dl (14.0-18.0); iSTAT Ionized Calcium 1.22 mmol/l (1.12-1.32); iSTAT Potassium 4.1 mmol/L (3.3-5.0)
[2020-10-17 18:04] LABS: Alanine Aminotransferase 28 U/L (12-78); Albumin Level 2.6 gm/dl (3.4-5.0); Aspartate Aminotransferase 23 U/L (15-37); BUN Creatinine Ratio 21.7 (10-20); Blood Urea Nitrogen 32 mg/dl (7-18); Calcium 8.5 mg/dl (8.5-10.1); Carbon Dioxide 24 mmol/L (21-32); Chloride 107 mmol/L (98-107); Est GFR (African American) 49.1 ml/min; Est GFR (Non-African American) 42.3 ml/min; Glucose 212 mg/dl (70-99); Lipase 56 U/L (73-393); Potassium 4.1 mmol/L (3.5-5.1); Sodium 137 mmol/L (136-145)
[2020-10-17 18:17] LABS: Hematocrit (blood only) 23.7 % (42-52); Hemoglobin 7.6 g/dL (14.0-18.0); Mean Corpuscular Hemoglobin 30.6 pg (25-34); Mean Corpuscular Hgb Conc 32.1 g/dL (32-36); Mean Corpuscular Volume 95.6 fL (80-100); Mean Platelet Volume 13.1 fL (7.4-10.4); Nucleated RBC # (auto) 6.69 K/uL (0-0); Platelet Count 173 K/uL (130-400); RDW Coefficient of Variation 15.2 % (11.5-14.5); RDW Standard Deviation 51.3 fL (36.4-46.3); Red Blood Count 2.48 M/uL (4.7-6.1)
[2020-10-17 18:19] LABS: Albumin Globulin Ratio 0.7 (0.9-2); Alkaline Phosphatase 97 U/L (45-117); Bilirubin,Total 0.4 mg/dl (0.2-1); Globulin 3.6 gm/dl (2.5-4.0); Total Protein 6.2 gm/dl (6.4-8.2); Troponin I 0.748 ng/ml (0-0.045)
[2020-10-17 18:36] LABS: ALC (manual) 2.36 K/uL (1.2-3.4); ANC (manual) 7.82 K/uL (1.4-6.5); Basophilic Stippling 1+; Giant Platelets 1+; Hypochromasia Present; Lymphocytes # (manual) 2.36 K/uL (1.2-3.4); Lymphocytes % (manual) 22.3 %; Metamyelocytes # (manual) 0.11 K/uL (0-0); Monocytes # (manual) 0.31 K/uL (0.11-0.59); Monocytes % (manual) 2.9 %; Neutrophils # (manual) 7.82 K/uL (1.4-6.5); Neutrophils % (manual) 73.8 %; Ovalocytes 1+; Polychromasia 1+
[2020-10-17] MEDS ORDERED: OPTIRAY 320 125ml IV ONE (18:41)
--- NOTE | 2020-10-17 19:39 | CT Scan Report ---
CT abd pelvis IV con only CLINICAL HISTORY: not feeling well s/p splenectomy COMPARISON STUDY: September 23, 2020 TECHNIQUE: A dose lowering technique was utilized adhering to the principles of ALARA. CT DOSE: 709.86 mGy.cm FINDINGS: Lower chest: Interval development of bilateral pleural effusion and atelectasis at dependent portions of bilateral lower lobes.. Liver: The contrast-enhanced liver is normal in size, contour, and attenuation. Minimal prominence of the central intrahepatic biliary ducts are seen. Gallbladder: Is fluid-filled with mild diffuse thickening of its wall. Interval resolution of previously seen ascites. Spleen: Interval splenectomy. There is 1.6 x 6.4 x 0.7 cm crescentic area of fluid accumulation is se en under left hemidiaphragm with surrounding thick and slightly enhancing wall which could represent postoperative collection or developing abscess. No definite gas collection is seen within left upper quadrant. Pancreas: Unremarkable. Adrenal glands: Unremarkable. Kidneys: There is symmetric renal cortical enhancement. The kidneys are normal in size without hydron ephrosis.4 mm nonobstructive calculus is seen within left renal pelvis. Pelvic viscera: Urinary bladder is adequately filled with urine. There is diffuse thickening of urina ry bladder wall which was also seen on prior study without significant surrounding inflammatory jennings es and enlarged prostate gland. Bowel: Bowel loops are nondilated. Appendix is not well seen. Extensive diverticulosis of ascending, descending and sigmoid colon is seen without evidence of diverticulitis. Peritoneum: There is no intraperitoneal free air or abdominal ascites. Vasculature: Abdominal aorta is normal in caliber with extensive calcifications of its wall. Adenopathy: None. Skeletal structures: Osteopenia. Multilevel degenerative changes of the spine. Stable compression fra cture deformity of the L2 and mild anterolisthesis of L5 on S1. Post sternotomy changes are partially visualized. IMPRESSION: 1. Status post splenectomy. Questionable crescentic fluid collection is seen on the left hemidiaphra gm with thick wall which could represent postoperative collection or abscess. No definite free gas is seen. 2. Interval development of bilateral pleural effusion and atelectasis at dependent portions of bilat eral lower lobes. 3. Minimal prominence of the central intrahepatic biliary ducts. Mild diffuse prominence of the gall bladder wall which might represent developing cholecystitis versus other etiology. Please correlate a obie-mentioned findings with right upper quadrant pain. 4. Nondilated loops of bowel. Diverticulosis without diverticulitis. 5. Nonobstructive nephrolithiasis on the left. 6. Osteopenia. Stable compression fracture deformity of L2. 7. The rest of findings as above. ACT 112: Negative or not required by law. The above report was generated using voice recognition software. It may contain grammatical, syntax o r spelling errors. Electronically signed by: Makayla Parish DO 10/17/2020 7:38 PM
--- NOTE | 2020-10-17 19:53 | CT Scan Report ---
CT ANGIOGRAM OF THE CHEST CLINICAL HISTORY: PE COMPARISON STUDY: September 23, 2020 TECHNIQUE: Following the IV administration of 117 mL of Optiray, CT angiogram of the thorax was perfo rmed from the thoracic inlet to the lung bases utilizing the pulmonary embolus protocol. Images are r eviewed in the axial, sagittal, and coronal planes. IV contrast was administered without complication . MIP imaging was performed. A dose lowering technique was utilized adhering to the principles of AL SKIP. CT DOSE: FINDINGS: Adequate opacification within main pulmonary artery is seen. Evaluation of peripheral branches of the pulmonary artery is slightly limited due to motion artifact. No definite central pulmonary embolus is seen. Main pulmonary artery is normal in caliber. No evidenc e of right heart strain. Interval development of pericardial collection at the inferior aspect of the right pericardium (58) heart is normal in size. Heavy calcifications of the coronary arteries are seen. No pathologically enlarged axillary mediastinal or hilar lymph nodes were visualized. Thoracic aorta is normal in caliber with extensive partial calcified plaques within its wall and geovanna nal irregularity. Few possible ulcerative plaques are seen within the aortic arch. No evidence of dis section. Visualized portion of thyroid gland shows no evidence of focal lesions. Esophagus is normal. Tracheobronchial tree is patent. Interval development of large left pleural effusion and small right pleural effusion associated with compressive atelectasis at bilateral bases. Evaluation of lung parenchyma is significantly limited due to motion artifact. Interval development of focal area of groundglass attenuation at subpleural aspect of the right upper lobe was not seen on recent prior study and might represent infectious/inflammatory process (/222). IMPRESSION: 1. No evidence of central pulmonary embolus. Evaluation of peripheral branches of pulmonary artery i s limited due to motion artifact. 2. Interval development of mild collection within inferior aspect of the pericardium. Please correla te above-mentioned findings with results of echocardiography. 3. Interval development of pleural effusion associated with atelectasis at dependent portions of dari ateral lower lobes. 4. Interval development of focal consolidative opacity peripheral aspect of the right upper lobe whi ch could represent infectious/inflammatory etiology versus others. Attention on follow-up imaging. 5. Extensive calcifications of aortic wall without dissection or aneurysmal dilatation. Few areas of calcified plaques are seen within the aortic arch. 6. The rest of findings as above. ACT 112: Negative or not required by law. The above report was generated using voice recognition software. It may contain grammatical, syntax o r spelling errors. Electronically signed by: Makayla Parish DO 10/17/2020 7:52 PM
[2020-10-17] MEDS ORDERED: FAMOTIDINE 20MG/5ML IV PUSH IV STA (20:00)
--- NOTE | 2020-10-17 20:26 | History & Physical Report ---
Date of Service October 17, 2020 Assessment & Plan (1) Weakness: Plan: Mr. Fields is an 89 yo gentleman who presented for weakness, found to have a Hgb of 7.6 on admission. - etiology: likely secondary to acute on chronic anemia vs. infection vs. deconditioning vs. multifactorial. - Hgb 7.6, down from 8.2 when checked last on 10/13/20. No apparent source of bleeding. Chronically anemic, suspect secondary to bone marrow depression issues given work up for possible blood cancer and weekly Epogen injections. Blood consent signed and in chart. 2 units of pRBCs ordered. Trend H+H q4. Transfuse < 8 given history of CAD - patient afebrile, WBC not elevated. UA ordered. Chest CT showing evidence of b/l atelectasis and pleural effusions, no PNA. A/P cat scan showing evidence of possible developing acute cholecystitis, although patient reported no abdominal tenderness on exam. History of a provider (likely from [facility]) calling in a script for ciprofloxacin is suspicion for a suspect UTI - follow UA. Will hold off on empiric antibiotics - consider adding based on UA or patient clinically worsens. - PT/OT ordered (2) Elevated troponin: Plan: - trop 0.748 on admission - EKG with new signs of inferolateral ST segment depression - patient denies chest pain - suspect demand-supply mismatch in the setting of acute on chronic anemia - interval development of mild collection within inferior aspect of the pericardium noted on Chest CTA - however, there was no mention of a pericardial fluid collection on Chest CT taken 09/22/20. No ST segment elevations present on EKG, no NE segment depression, no frictional rub present on exam. Pericarditis unlikely. - trend trops - echo ordered in am to further assess for pericardial fluid/wall motion abnormalities. - repeat EKG in am (3) Multiple rib fractures: Plan: - secondary to trauma sustained in mid September 2020 - Lidoderm patch ordered - Tylenol prn - b/l lower lung field atelectasis noted on chest ct - incentive spirometry ordered to prevent PNA development (4) Chronic kidney disease, stage 4 (severe): Plan: - Cr at 1.4, BUN 32 on admission - baseline Cr appears to range from 0.9-1.9 - renally dose as appropriate - trend BMP (5) Abnormal QT interval present on electrocardiogram: Plan: - noted on ecg - avoid use of QT prolonging agents - repeat ECG in am - risk factors include advanced age, hx of heart disease. Not on an anti- arrhythmic, antipsychotic, or antibiotic or antifungal (6) Diabetes: Plan: - HbA1c was 6.5 on 09/2020, below goal given age and comorbidities - hold home glipizide - blood glucose checks ACHS - sliding scale insulin ordered - continue high intensity statin - recommend consideration of discontinuing oral anti-glycemic given recent A1c being below goal; do not favor sulfonylurea use in the elderly (7) Coronary artery disease: Plan: - although suspicion for an acute bleed (as cause of anemia) is low, will hold daily baby and home dose metoprolol - continue high intensity statin (8) H/O splenectomy: Plan: - incision appears to be well healing. Abdominal exam benign - fluid collected noted in vicinity of spleen on A/P cat scan. Suspect post- operative fluid collection > developing abscess. - serial exams (9) Tachycardia: Plan: - likely compensatory in response to acute on chronic anemia with Hgb of 7.6. blood transfusion ordered. - chest CTA showing no evidence of PE - WBC not elevated, patient afebrile, acute infectious state seems unlikely - continue cardiac monitoring (10) BPH (benign prostatic hyperplasia): Plan: - continue home dose finasteride (11) Anxiety and depression: Plan: - continue home dose sertraline DVT ppx: will hold off on chemo given Hgb of 7.6; SCDs Diet: Heart Healthy, DM2 Dispo: Med/tele Code: DNR/DNI, I discussed with patient History of Present Illness Primary Care Provider: Vinh Montano DO Mr. Fields is an 89 yo gentleman with a PMHx of CAD s/p CABG who presented to the [facility] ED for evaluation of weakness. For the past day or so, he has become progressively weak and fatigued with minimal exertion. He went down on his knees twice today and did not have the strength to lift himself back up. His daughter is present at beside and provides much of the history. His blood counts have been low for past several months. He has been seen by Dr. [facility] - daughter reports a discussion/suspicion of a blood cancer, although work up has apparently not been completed and/or confirmatory. He has had to get one-two blood transfusions per month for the past several months due to low hemoglobin levels. He also gets weekly Epogen injections. Of note, he had a splenectomy and suffered several left sided fib fractures from a trauma 3 weeks ago. He has some residual left sided chest wall pain from the rib fractures. Daughter reports he has only been home from [facility] for several days following the trauma dn subsequent operations. She reicved notification that a script for cipro was sent into their pharmacy for him, but she has no idea which doctor sent it and why. Thus, Mr. Fields has not started it. Patient does take a daily baby ASA, but is not on a blood thinner. He denies nay nosebleeds, hematuria, or blood in stool or melena. He denies any preceding i llness. He has been fully vaccinated against COVID. In the ED, he was febrile, but tachycardic to 125 bpm. Blood pressure 142/86. Breathing well on room air. His Hgb was 7.6, down from 8.2 when last checked on 10/13/20. His MCV is 95. His WBC and platelets were normal. His electrolytes and LFTs were normal, Cr 1.46, BUN at 32. Trop elevated to 0.748. Lipase not elevated. COVID 19 negative. UA ordered. EKG showing evidence of new inferolateral ST segment depression when compared to ECG in 09/2020. Chest CTA showing no evidence of pulmonary embolism, interval development of mild collection within inferior aspect of the pericardium; interval development of b/l lower lung atelectasis and pleural effusions. CT of abdomen and pelvis showing a fluid collection near the sit of his recent splenectomy, post operative fluid collection vs: abscess; prominent gallbladder wall and centra intrahepatic ducts concerning for developing acute cholecystitis. Patient was given 1 liter of NSS and 20mg IV famotidine. Allergies Allergy/AdvReac Type Severity Reaction Status Date / Time cefuroxime Allergy Intermediate Hives Verified 10/17/20 19:20 Penicillins Allergy Mild Hives Verified 10/17/20 19:20 olanzapine AdvReac Intermediate Hallucinations, Verified 10/17/20 19:20 confusion and panic Home Medications Medication Instructions Recorded Confirmed Type aspirin 81 mg tablet,delayed 81 mg PO QAM 01/29/18 10/17/20 History release atorvastatin 80 mg tablet 80 mg PO QAM 01/29/18 10/17/20 History mirabegron 25 mg tablet,extended 25 mg PO HS 01/29/18 10/17/20 History release 24 hr (Myrbetriq) pantoprazole 40 mg tablet,delayed 40 mg PO QAM 01/29/18 10/17/20 History release finasteride 5 mg tablet 5 mg PO HS #90 tab 03/19/19 10/17/20 Rx glipizide 5 mg tablet 10 mg PO QAM 03/28/20 10/17/20 History hydroxyzine HCl 10 mg tablet 10 mg PO DIRECTED PRN 03/28/20 10/17/20 History sertraline 100 mg tablet 100 mg PO QAM 03/28/20 10/17/20 History cyanocobalamin (vitamin B-12) 500 500 mcg PO QAM 04/20/20 10/17/20 History mcg tablet (Vitamin B-12) tamsulosin 0.4 mg capsule 0.4 mg PO HS 04/20/20 10/17/20 History thiamine HCl (vitamin B1) 100 mg 100 mg PO QAM 04/20/20 10/17/20 History tablet (Vitamin B-1) umeclidinium 62.5 mcg-vilanterol 1 puffs INH QAM 04/20/20 10/17/20 History 25 mcg/actuation powdr for inhalation (Anoro Ellipta) vitamins A,C,X-rcej-ibfnee 14,320 1 cap PO AMHS 04/20/20 10/17/20 History unit-226 mg-200 unit capsule (PreserVision AREDS) metoprolol succinate 25 mg 12.5 mg PO HS 07/23/20 10/17/20 History tablet,extended release 24 hr quetiapine 25 mg tablet (Seroquel) 25 mg PO HS 08/17/20 10/17/20 History 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, stage 4 (severe) Confusion COPD (chronic obstructive pulmonary disease) COVID-19 04/2020 Fall Gastric ulcer Gastritis and duodenitis Hematuria History of acute renal failure KIDNEY STONE BLOCKAGE 2 YR AGO/NO PROBLEMS SINCE History of kidney stones Hx of neck injury HX BROKEN NECK, 1 ST AND SECOND VERTEBRAE - 2 YRS AGO Hx of seasonal allergies Hydronephrosis Hyperlipidemia Hypertension Renal colic Restless leg syndrome Weakness Surgical History Hx of appendectomy Hx of cardiac catheterization BEFORE BYPASS SURGERY/BLOCKAGES Hx of colonoscopy 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 Family History Other Hypertension Social History Smoking Status: Former smoker Tobacco Type: Cigarettes Smoking End Date: 2009; Second Hand Exposure: No; Tobacco Cessation Education Requested by Patient: No Hx Alcohol Use: No Hx Substance Use: No Preferred Language: Senegalese Communication Ability: Effective 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 Beliefs That Will Affect Care: None marital status: / Current Living Situation: Family Current Living Situation Comment: Lives with his daughter and his daughters boyfriend Other Information That Helps Us Care for You: No Feels Safe at Home: Yes Safety Concerns: Feels Safe At This Time Assistive Devices: None Review of Systems Constitutional: + weakness; no fever and no chills Respiratory: no cough Cardiovascular: no chest pain Gastrointestinal: no abdominal pain, no nausea, no vomiting and no diarrhea/loose stools Genitourinary: no dysuria or no urinary frequency Physical Exam Constitutional: WD/WN, vitals as above cooperative and comfortable; no acute distress Eyes: + anicteric sclerae ENMT: external ear and nose normal, oropharynx normal Ears: + hearing impairment Neck: trachea midline Respiratory: normal respiratory effort; no respiratory distress, no labored breathing, no cough and not tachypneic Auscultation: + diminished lung sounds (b/l bases); no crackles and no wheezes Cardiovascular: Rate/Rhythm: regular rhythm and + tachycardic Heart Sounds: normal S1 and normal S2 Extremities: no pedal edema Gastrointestinal (Abdomen): normal bowel sounds, soft, nontender, no hepatosplenomegaly Inspection/Auscultation: + abdominal surgical incision (appears to be healing well, steri stips in place) Musculoskeletal: Head/Neck/Chest: normocephalic and head atraumatic Skin: no rashes, warm and dry Neurologic: moves all extremities Psychiatric: A+Ox3, euthymic affect Results & Data Results & Data ([facility]) Vital Signs (Past 12 Hours) Vital Signs Temp Pulse Resp BP Pulse Ox 10/17/20 17:59 36.5 C 125 H 18 109/63 97 Supervising Physician Co-Signing Physician Notes Attending addendum: I have physically seen this patient, have supervised the medical residents activities, and agree with the H&P unless as otherwise noted. 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 Likely supply demand mismatch secondary to low hemoglobin Prolonged QT interval, avoid use of agents to aggravate Multiple rib fractures- Lidoderm patch applied over fracture site Incentive spirometry to help prevent secondary pneumonias Remaining orders and notations as noted Resident Activity Tracking Resident Involvement: Resident Care Provided Care Provided: Adult Hospital Medicine (1) BPH (benign prostatic hyperplasia) Lower urinary tract symptom presence: symptoms absent Qualified Code(s): N40.0 - Benign prostatic hyperplasia without lower urinary tract symptoms (2) Multiple rib fractures Encounter type: initial encounter Fracture type: closed Laterality: left Qualified Code(s): S22.42XA - Multiple fractures of ribs, left side, initial encounter for closed fracture (3) Diabetes Diabetes mellitus complication status: without complication Diabetes mellitus extermination supervisor insulin use: without extermination supervisor use Diabetes mellitus type: type 2 Qualified Code(s): E11.9 - Type 2 diabetes mellitus without complications (4) Coronary artery disease Associated angina: without angina Coronary Disease-Associated Artery/Lesion type: [place] artery [place] vs. transplanted heart: [place] heart Qualified Code(s): I25.10 - Atherosclerotic heart disease of [place] coronary artery without angina pectoris
[2020-10-17] MEDS ORDERED: POLYETHYLENE (MIRALAX) 17 GM PACK PO PRN (21:08)
[2020-10-17] MEDS ORDERED: GLUCOSE 40% GEL 15 GM TUBE PO PRN (21:08)
[2020-10-17] MEDS ORDERED: ONDANSETRON INJ 2 MG/ML 2 ML VIAL IV PRN (21:08)
[2020-10-17] MEDS ORDERED: GLUCAGON FOR INJ 1 MG VIAL SQ PRN (21:08)
[2020-10-17] MEDS ORDERED: GLUCOSE 10 TABS/TUBE PO PRN (21:08)
[2020-10-17] MEDS ORDERED: DEXTROSE 50% 50 ML SYRINGE IV PRN (21:08)
[2020-10-17] MEDS ORDERED: CARBOHYDRATES FOR HYPOGLYCEMIA PO PRN (21:08)
[2020-10-17] MEDS ORDERED: SODIUM CHLORIDE 0.9% 250 ML IV PRN (21:08)
[2020-10-17] MEDS ORDERED: ACETAMINOPHEN 325 MG TAB PO PRN (21:08)
[2020-10-17] MEDS: FINASTERIDE 5 MG TAB PO SCH (22:30)
[2020-10-17] MEDS: LIDOCAINE 5% 1 PATCH TD SCH (22:30)
[2020-10-17] MEDS: QUEtiapine FUMARATE 25 MG TABLET PO SCH (22:30)
[2020-10-17] MEDS: MIRABEGRON ER 25 MG TAB PO SCH (22:30)
[2020-10-17] MEDS: TAMSULOSIN HCL 0.4 MG CAP PO SCH (22:30)
[2020-10-17] MEDS: INSULIN ASPART 100 UNITS/ML 3 ML PEN SC SCH (22:31)
[2020-10-18 01:58] LABS: Appearance Urine Clear (Clear); Bacteria Urine Automated Negative (Negative); Bilirubin Urine Negative (Negative); Blood Urine Negative (Negative); Color Urine Yellow; Epithelial Cell Urine Auto 0-5 /lpf (0-5); Glucose Urine UA Negative (Negative); Ketones Urine Negative (Negative); Leukocyte Esterase Urine Negative (Negative); Nitrite Urine Negative (Negative); Protein Urine Trace (Negative); RBC Urine Automated 0-4 /hpf (0-4); Specific Gravity Urine 1.041 (1.000-1.030); Urobilinogen Urine Negative (Negative); pH Urine 5.5 (4.5-7.5)
[2020-10-18] MEDS ORDERED: METOPROLOL TARTRATE 1 MG/ML VIAL IV STA (07:10)
[2020-10-18 07:20] LABS: BUN Creatinine Ratio 22.1 (10-20); Calcium 8.4 mg/dl (8.5-10.1); Creatinine Clr Calc Pharmacy 42.2 ml/min; Est GFR (African American) 63.5 ml/min; Est GFR (Non-African American) 54.8 ml/min
--- NOTE | 2020-10-18 07:30 | Electrocardiogram Report ---
Test Reason : Blood Pressure : / mmHG Vent. Rate : 126 BPM Atrial Rate : 126 BPM P-R Int : 168 ms QRS Dur : 110 ms QT Int : 346 ms P-R-T Axes : 102 021 229 degrees QTc Int : 501 ms Probably atrial flutter. Sinus tachycardia can be considered Marked ST abnormality, possible inferior subendocardial injury Abnormal ECG When compared with ECG of 23-SEP-2020 11:20, Vent. rate has increased BY 59 BPM Incomplete left bundle block is no longer Present Confirmed by Krystian Bryant ([id number]) on 10/18/2020 7:30:31 AM Referred By: REFERRED SELF Confirmed By:Lui Bryant
--- NOTE | 2020-10-18 07:33 | Electrocardiogram Report ---
Test Reason : Blood Pressure : / mmHG Vent. Rate : 125 BPM Atrial Rate : 250 BPM P-R Int : 000 ms QRS Dur : 110 ms QT Int : 348 ms P-R-T Axes : -80 150 -57 degrees QTc Int : 502 ms Atrial flutter with 2:1 A-V conduction limb lead reversal is present Moderate voltage criteria for LVH, may be normal variant T wave abnormality, consider inferior ischemia Abnormal ECG When compared with ECG of 17-OCT-2020 16:59, (unconfirmed) QRS axis Shifted right (due to limb lead reversal) ST no longer depressed in Lateral leads Confirmed by Krystian Bryant ([id number]) on 10/18/2020 7:33:16 AM Referred By: REFERRED SELF Confirmed By:Lui Bryant
[2020-10-18] MEDS: ATORVASTATIN 40 MG TAB PO SCH (08:14)
[2020-10-18] MEDS: CEROVITE ADV FORMULA TAB PO SCH ×2 (08:14→21:26)
[2020-10-18] MEDS: UMECLIDINIUM/VILANTEROL 62.5/25MCG 7 PUFFS/INHALER INH SCH (08:15)
[2020-10-18] MEDS: PANTOprazole 40 MG TAB PO SCH (08:15)
[2020-10-18] MEDS: SERTRALINE HCL 100 MG TABLET PO SCH (08:15)
--- NOTE | 2020-10-18 08:25 | Cardiology Consultation ---
Date of Consultation October 18, 2020 Assessment & Plan (1) Weakness: (2) Elevated troponin: (3) Hx of splenectomy: (4) PAF (paroxysmal atrial fibrillation): (5) Myelodysplasia (myelodysplastic syndrome): (6) Multiple rib fractures: I believe the patient's elevated troponins are due to demand ischemia from the atrial flutter with RVR along with his anemia. His weakness is multifactorial. I think conservative management is indicated. Going to increase his metoprolol and provide an IV as needed dose for high heart rates. I would recommend that he be transfused as needed to maintain a hemoglobin above 9 if possible. He is not a candidate for anticoagulation due to his anemia with myelodysplastic syndrome as well as his recent surgeries and history of mechanical falls. History of Present Illness Attending Physician: Juvencio Gardner, History of Present Illness This is an elderly 89-year-old male patient with the past medical history as outlined below. He has had a rough go the past several weeks. He had a mechanical fall fracturing several ribs on the left side and having a ruptured spleen that required surgery and a splenectomy. He was just recently discharged to rehab. He developed further weakness and apparently went to his knees while at rehab. He was returned to the hospital. He has been admitted once again. The patient has no complaints today. He is actually sitting in a chair wondering when he can return to the rehab hospital. He has been having atrial fibrillation/flutter since admission which may be contributing to his weakness. He is also had an ongoing anemia felt possibly due to myelodysplastic syndrome which may also be contributing to his weakness. He denies chest pain or progressive shortness of breath. He has had no syncope. Past medical history: 1. Atherosclerotic coronary artery disease with prior coronary bypassgrafting for left main disease in 2003, receiving a MUÑIZ graft to the LAD, asaphenous vein graft to the ramus intermedius with sequential graft to theposterior medial branch, 2. Longstanding labile hypertension. 3. Hyperlipidemia. 4. Past remote atrial fibrillation. 5. History of mechanical fall with C1-2 cervical fracture in February 2015. 6. Chronic obstructive lung disease 7. CKD stage 3 Allergies Allergy/AdvReac Type Severity Reaction Status Date / Time cefuroxime Allergy Intermediate Hives Verified 10/17/20 19:20 Penicillins Allergy Mild Hives Verified 10/17/20 19:20 olanzapine AdvReac Intermediate Hallucinations, Verified 10/17/20 19:20 confusion and panic Home Medications Medication Instructions Recorded Confirmed Type aspirin 81 mg tablet,delayed 81 mg PO QAM 01/29/18 10/17/20 History release atorvastatin 80 mg tablet 80 mg PO QAM 01/29/18 10/17/20 History mirabegron 25 mg tablet,extended 25 mg PO HS 01/29/18 10/17/20 History release 24 hr (Myrbetriq) pantoprazole 40 mg tablet,delayed 40 mg PO QAM 01/29/18 10/17/20 History release finasteride 5 mg tablet 5 mg PO HS #90 tab 03/19/19 10/17/20 Rx glipizide 5 mg tablet 10 mg PO QAM 03/28/20 10/17/20 History hydroxyzine HCl 10 mg tablet 10 mg PO DIRECTED PRN 03/28/20 10/17/20 History sertraline 100 mg tablet 100 mg PO QAM 03/28/20 10/17/20 History cyanocobalamin (vitamin B-12) 500 500 mcg PO QAM 04/20/20 10/17/20 History mcg tablet (Vitamin B-12) tamsulosin 0.4 mg capsule 0.4 mg PO HS 04/20/20 10/17/20 History thiamine HCl (vitamin B1) 100 mg 100 mg PO QAM 04/20/20 10/17/20 History tablet (Vitamin B-1) umeclidinium 62.5 mcg-vilanterol 1 puffs INH QA 04/20/20 10/17/20 History 25 mcg/actuation powdr for inhalation (Anoro Ellipta) vitamins A,C,W-falo-wcitis 14,320 1 cap PO AMHS 04/20/20 10/17/20 History unit-226 mg-200 unit capsule (PreserVision AREDS) metoprolol succinate 25 mg 12.5 mg PO HS 07/23/20 10/17/20 History tablet,extended release 24 hr quetiapine 25 mg tablet (Seroquel) 25 mg PO HS 08/17/20 10/17/20 History Patient History Medical History Acid reflux CONTROLLED Acute bronchitis Anxiety and depression Atypical pneumonia AVM (arteriovenous malformation) of duodenum, acquired with hemorrhage BPH (benign prostatic hyperplasia) Cervical spine fracture 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, stage 4 (severe) Confusion COPD (chronic obstructive pulmonary disease) COVID-19 04/2020 Fall Gastric ulcer Gastritis and duodenitis Hematuria History of acute renal failure KIDNEY STONE BLOCKAGE 2 YR AGO/NO PROBLEMS SINCE History of kidney stones Hx of neck injury HX BROKEN NECK, 1 ST AND SECOND [place] - 2 YRS AGO Hx of seasonal allergies Hydronephrosis Hyperlipidemia Hypertension Renal colic Restless leg syndrome Weakness Surgical History Hx of appendectomy Hx of cardiac catheterization BEFORE BYPASS SURGERY/BLOCKAGES Hx of colonoscopy 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 Family History Other Hypertension Social History Smoking Status: Former smoker Tobacco Type: Cigarettes Smoking End Date: 2009; Second Hand Exposure: No; Tobacco Cessation Education Requested by Patient: No Hx Alcohol Use: No Hx Substance Use: No Preferred Language: Danish Communication Ability: Effective [place] [employer] Required: No Beliefs That Will Affect Care: None marital status: / Current Living Situation: Family Current Living Situation Comment: Lives with his daughter and his daughters boyfriend Other Information That Helps Us Care for You: No Feels Safe at Home: Yes Safety Concerns: Feels Safe At This Time Assistive Devices: Walker Review of Systems Review of Systems: Review of Systems: See HPI for pertinent positives. All other 10 point review of systems are negative. Physical Exam Physical Exam: General: no acute distress and stated age Head: normocephalic, no masses, lesions, tenderness or abnormalities Eyes: conjunctiva are pink and non-injected, sclera clear Neck: supple, no adenopathy, no bruits, normal jugular venous pulse, no hepatojugular reflux Chest: Tenderness along the left rib cage. Lungs: clear to auscultation and percussion Cardiac Exam: - irregular rate & rhythm, no murmurs gallops or rubs - normal S1, normal S2 Pulses: 2(+) throughout Abdomen: Recent abdominal surgery, abdomen soft, non-tender, no abnormal masses and no hepatosplenomegaly Musculoskeletal: no gait disturbance, no joint inflammation, no deforming arthritis Extremities: no edema and no cyanosis Neuro: grossly normal exam Results & Data ([facility]) Vital Signs (Past 12 Hours) Vital Signs Temp Pulse Pulse Resp BP BP BP 10/18/20 06:10 36.5 C 130 H 18 147/92 H 10/18/20 05:45 36.5 C 126 H 20 150/79 H 10/18/20 04:45 36.5 C 124 H 18 120/74 10/18/20 04:15 36.5 C 124 H 20 124/72 10/18/20 04:00 36.5 C 128 H 18 133/78 10/18/20 03:44 36.5 C 129 H 18 132/79 10/18/20 03:20 36.9 C 127 H 20 126/71 10/18/20 02:30 36.7 C 127 H 20 147/79 H 10/18/20 01:30 36.7 C 127 H 20 156/89 H 10/18/20 01:00 36.7 C 128 H 20 136/80 10/18/20 00:45 36.8 C 126 H 126 H 20 142/73 H 142/73 H 10/18/20 00:21 36.9 C 126 H 18 133/73 10/17/20 23:00 36.8 C 124 H 20 126/70 10/17/20 21:35 37.0 C 18 137/79 10/17/20 20:29 114 H 18 142/86 H Pulse Ox 10/18/20 06:10 94 10/18/20 05:45 97 10/18/20 04:45 95 10/18/20 04:15 96 10/18/20 04:00 97 10/18/20 03:44 96 10/18/20 03:20 97 10/18/20 02:30 97 10/18/20 01:30 97 10/18/20 01:00 97 10/18/20 00:45 97 10/18/20 00:21 99 10/17/20 23:00 98 10/17/20 21:35 98 10/17/20 20:29 98 Laboratory Results Laboratory Results - last 24 hr 10/17/20 10/17/20 10/17/20 17:33 17:33 17:42 WBC 10.60 RBC 2.48 L Hgb 7.6 L POC Hgb 7.8 L Hct 23.7 L POC Hct 23 L MCV 95.6 MCH 30.6 MCHC 32.1 RDW Std Deviation 51.3 H RDW Coeff of Leeanna 15.2 H Plt Count 173 MPV 13.1 H Absolute Nucleated RBC 6.69 H Nucleated RBC % (auto) 63.0 Neutrophils % (Manual) 73.8 Lymphocytes % (Manual) 22.3 Monocytes % (Manual) 2.9 Metamyelocytes % (Man) 1.0 Neutrophils # (Manual) 7.82 H Total Absolute Neuts 7.82 H Lymphocytes # (Manual) 2.36 Total Abs Lymphocytes 2.36 Monocytes # (Manual) 0.31 Metamyelocytes # (Man) 0.11 H Hypersegmented Neuts 1+ Giant Platelets 1+ Polychromasia 1+ Hypochromasia Present Basophilic Stippling 1+ Ovalocytes 1+ POC Sodium 137 Sodium 137 POC Potassium 4.1 Potassium 4.1 POC Chloride 101 Chloride 107 Carbon Dioxide 24 POC Total CO2 19 L Anion Gap 7.0 POC Anion Gap 22.0 POC BUN 31 H BUN 32 H Creatinine 1.46 H POC Creatinine 1.5 H Est Cr Clr Drug Dosing Not Reportable Est GFR ( Amer) 49.1 Est GFR (Non-Af Amer) 42.3 BUN/Creatinine Ratio 21.7 H Glucose 212 H POC Glucose POC Glucose (other) 212 H Calcium 8.5 POC Ioniz Calcium Collins 1.22 Total Bilirubin 0.4 AST 23 ALT 28 Alkaline Phosphatase 97 Troponin I 0.748 H* Total Protein 6.2 L Albumin 2.6 L Globulin 3.6 Albumin/Globulin Ratio 0.7 L Lipase 56 L Urine Color Urine Appearance Urine pH Ur Specific [place] Urine Protein Urine Glucose (UA) Urine Ketones Urine Blood Urine Nitrite Urine Bilirubin Urine Urobilinogen Ur Leukocyte Esterase Urine WBC (Auto) Urine RBC (Auto) U Hyaline Cast (Auto) U Epithel Cells (Auto) Urine Bacteria (Auto) COVID-19 Eval Order SARS-CoV-2 (PCR) Blood Type Antibody Screen Crossmatch 10/17/20 10/17/20 10/17/20 18:06 18:06 21:22 WBC RBC Hgb POC Hgb Hct POC Hct MCV MCH MCHC RDW Std Deviation RDW Coeff of Leeanna Plt Count MPV Absolute Nucleated RBC Nucleated RBC % (auto) Neutrophils % (Manual) Lymphocytes % (Manual) Monocytes % (Manual) Metamyelocytes % (Man) Neutrophils # (Manual) Total Absolute Neuts Lymphocytes # (Manual) Total Abs Lymphocytes Monocytes # (Manual) Metamyelocytes # (Man) Hypersegmented Neuts Giant Platelets Polychromasia Hypochromasia Basophilic Stippling Ovalocytes POC Sodium Sodium POC Potassium Potassium POC Chloride Chloride Carbon Dioxide POC Total CO2 Anion Gap POC Anion Gap POC BUN BUN Creatinine POC Creatinine Est Cr Clr Drug Dosing Est GFR ( Amer) Est GFR (Non-Af Amer) BUN/Creatinine Ratio Glucose POC Glucose POC Glucose (other) Calcium POC Ioniz Calcium Collins Total Bilirubin AST ALT Alkaline Phosphatase Troponin I Total Protein Albumin Globulin Albumin/Globulin Ratio Lipase Urine Color Urine Appearance Urine pH Ur Specific [place] Urine Protein Urine Glucose (UA) Urine Ketones Urine Blood Urine Nitrite Urine Bilirubin Urine Urobilinogen Ur Leukocyte Esterase Urine WBC (Auto) Urine RBC (Auto) U Hyaline Cast (Auto) U Epithel Cells (Auto) Urine Bacteria (Auto) COVID-19 Eval Order Covid19 at [facility] SARS-CoV-2 (PCR) NEGATIVE Blood Type O Negative Antibody Screen NEGATIVE Crossmatch See Detail 10/17/20 10/17/20 10/18/20 22:23 23:47 01:40 WBC RBC Hgb POC Hgb Hct POC Hct MCV MCH MCHC RDW Std Deviation RDW Coeff of Leeanna Plt Count MPV Absolute Nucleated RBC Nucleated RBC % (auto) Neutrophils % (Manual) Lymphocytes % (Manual) Monocytes % (Manual) Metamyelocytes % (Man) Neutrophils # (Manual) Total Absolute Neuts Lymphocytes # (Manual) Total Abs Lymphocytes Monocytes # (Manual) Metamyelocytes # (Man) Hypersegmented Neuts Giant Platelets Polychromasia Hypochromasia Basophilic Stippling Ovalocytes POC Sodium Sodium POC Potassium Potassium POC Chloride Chloride Carbon Dioxide POC Total CO2 Anion Gap POC Anion Gap POC BUN BUN Creatinine POC Creatinine Est Cr Clr Drug Dosing Est GFR ( Amer) Est GFR (Non-Af Amer) BUN/Creatinine Ratio Glucose POC Glucose 144 H POC Glucose (other) Calcium POC Ioniz Calcium Collins Total Bilirubin AST ALT Alkaline Phosphatase Troponin I 0.494 H* Total Protein Albumin Globulin Albumin/Globulin Ratio Lipase Urine Color Yellow Urine Appearance Clear Urine pH 5.5 Ur Specific [place] 1.041 H Urine Protein Trace H Urine Glucose (UA) Negative Urine Ketones Negative Urine Blood Negative Urine Nitrite Negative Urine Bilirubin Negative Urine Urobilinogen Negative Ur Leukocyte Esterase Negative Urine WBC (Auto) 1-5 Urine RBC (Auto) 0-4 U Hyaline Cast (Auto) 1-5 U Epithel Cells (Auto) 0-5 Urine Bacteria (Auto) Negative COVID-19 Eval Order SARS-CoV-2 (PCR) Blood Type Antibody Screen Crossmatch 10/18/20 10/18/20 10/18/20 06:30 06:30 07:32 WBC RBC Hgb POC Hgb Hct POC Hct MCV MCH MCHC RDW Std Deviation RDW Coeff of Leeanna Plt Count MPV Absolute Nucleated RBC Nucleated RBC % (auto) Neutrophils % (Manual) Lymphocytes % (Manual) Monocytes % (Manual) Metamyelocytes % (Man) Neutrophils # (Manual) Total Absolute Neuts Lymphocytes # (Manual) Total Abs Lymphocytes Monocytes # (Manual) Metamyelocytes # (Man) Hypersegmented Neuts Giant Platelets Polychromasia Hypochromasia Basophilic Stippling Ovalocytes POC Sodium Sodium 139 POC Potassium Potassium 4.0 POC Chloride Chloride 109 H Carbon Dioxide 23 POC Total CO2 Anion Gap 7.0 POC Anion Gap POC BUN BUN 26 H Creatinine 1.18 POC Creatinine Est Cr Clr Drug Dosing 42.2 Est GFR ( Amer) 63.5 Est GFR (Non-Af Amer) 54.8 BUN/Creatinine Ratio 22.1 H Glucose 110 H POC Glucose 126 H POC Glucose (other) Calcium 8.4 L POC Ioniz Calcium Collins Total Bilirubin AST ALT Alkaline Phosphatase Troponin I 0.494 H* Total Protein Albumin Globulin Albumin/Globulin Ratio Lipase Urine Color Urine Appearance Urine pH Ur Specific [place] Urine Protein Urine Glucose (UA) Urine Ketones Urine Blood Urine Nitrite Urine Bilirubin Urine Urobilinogen Ur Leukocyte Esterase Urine WBC (Auto) Urine RBC (Auto) U Hyaline Cast (Auto) U Epithel Cells (Auto) Urine Bacteria (Auto) COVID-19 Eval Order SARS-CoV-2 (PCR) Blood Type Antibody Screen Crossmatch 10/18/20 10/18/20 09:10 11:32 WBC RBC Hgb 9.7 L POC Hgb Hct 29.2 L POC Hct MCV MCH MCHC RDW Std Deviation RDW Coeff of Leeanna Plt Count MPV Absolute Nucleated RBC Nucleated RBC % (auto) Neutrophils % (Manual) Lymphocytes % (Manual) Monocytes % (Manual) Metamyelocytes % (Man) Neutrophils # (Manual) Total Absolute Neuts Lymphocytes # (Manual) Total Abs Lymphocytes Monocytes # (Manual) Metamyelocytes # (Man) Hypersegmented Neuts Giant Platelets Polychromasia Hypochromasia Basophilic Stippling Ovalocytes POC Sodium Sodium POC Potassium Potassium POC Chloride Chloride Carbon Dioxide POC Total CO2 Anion Gap POC Anion Gap POC BUN BUN Creatinine POC Creatinine Est Cr Clr Drug Dosing Est GFR ( Amer) Est GFR (Non-Af Amer) BUN/Creatinine Ratio Glucose POC Glucose 166 H POC Glucose (other) Calcium POC Ioniz Calcium Collins Total Bilirubin AST ALT Alkaline Phosphatase Troponin I Total Protein Albumin Globulin Albumin/Globulin Ratio Lipase Urine Color Urine Appearance Urine pH Ur Specific [place] Urine Protein Urine Glucose (UA) Urine Ketones Urine Blood Urine Nitrite Urine Bilirubin Urine Urobilinogen Ur Leukocyte Esterase Urine WBC (Auto) Urine RBC (Auto) U Hyaline Cast (Auto) U Epithel Cells (Auto) Urine Bacteria (Auto) COVID-19 Eval Order SARS-CoV-2 (PCR) Blood Type Antibody Screen Crossmatch Medications Administered Current Inpatient Medications Acetaminophen (Acetaminophen 325 Mg Tab) 650 mg PO Q4H PRN PRN Reason: Pain or Fever Stop: 11/16/20 21:07 Aspirin (Aspirin 81 Mg Ectab) [facility] Stop: 11/17/20 10:44 Last Admin: 10/18/20 12:04 Dose: 81 mg Documented by: Atorvastatin Calcium (Atorvastatin 40 Mg Tab) 80 [facility] [place] Stop: 11/17/20 08:59 Last Admin: 10/18/20 08:14 Dose: 80 mg Documented by: Dextrose (Dextrose 50% 50 Ml Syringe) 25 - 50 ml IV UD PRN; Protocol PRN Reason: Hypoglycemia Protocol Stop: 11/16/20 21:07 Finasteride (Finasteride 5 Mg Tab) 5 mg PO [facility] Stop: 11/16/20 21:07 Last Admin: 10/17/20 22:30 Dose: 5 mg Documented by: Glucagon (Glucagon For Inj 1 Mg Vial) 1 mg SQ UD PRN; Protocol PRN Reason: Hypoglycemia Protocol Stop: 11/16/20 21:07 Glucose (Glucose 10 Tabs/Tube) 4 - 8 tabs PO UD PRN; Protocol PRN Reason: Hypoglycemia Protocol Stop: 11/16/20 21:07 Glucose (Glucose 40% Gel 15 Gm Tube) 15 - 30 gm PO UD PRN; Protocol PRN Reason: Hypoglycemia Protocol Stop: 11/16/20 21:07 Sodium Chloride (Nss) 250 mls @ 15 mls/hr IV .[id number] PRN PRN Reason: For Transfusion Stop: 11/16/20 21:07 Insulin Aspart (Insulin Aspart 100 Units/Ml 3 Ml Pen) 0 units SC ACHS [facility] Stop: 11/16/20 21:07 Last Admin: 10/18/20 12:15 Dose: 3 units Documented by: Lidocaine (Lidocaine 5% 1 Patch) 1 patch TD PM [facility] Stop: 11/16/20 21:07 Last Admin: 10/17/20 22:30 Dose: Not Given Documented by: Metoprolol Succinate (Metoprolol Succ 25mg Ext Rel Tab) 25 mg PO BID [facility] Stop: 11/17/20 12:14 Metoprolol Tartrate (Metoprolol Tartrate 1 Mg/Ml Vial) 5 mg IV Q5M PRN PRN Reason: Tachycardia Stop: 11/17/20 12:12 Mirabegron (Mirabegron Er 25 Mg Tab) 25 mg PO [facility] Stop: 11/16/20 21:07 Last Admin: 10/17/20 22:30 Dose: 25 mg Documented by: Miscellaneous (Remove Lidoderm Patch) 1 ea N/A [facility] Stop: 11/17/20 08:59 Last Admin: 10/18/20 08:49 Dose: 1 ea Documented by: Miscellaneous (Carbohydrates For Hypoglycemia ) 15 - 30 gm PO UD PRN PRN Reason: Hypoglycemia Protocol Stop: 11/16/20 21:07 Multivitamins/Minerals (Cerovite Adv Formula Tab) 1 tab PO AMHS [facility] Stop: 11/17/20 08:59 Last Admin: 10/18/20 08:14 Dose: 1 tab Documented by: Pantoprazole Sodium (Pantoprazole 40 Mg Tab) 40 mg PO QAM [facility] Stop: 11/17/20 08:59 Last Admin: 10/18/20 08:15 Dose: 40 mg Documented by: Polyethylene Glycol (Polyethylene (Miralax) 17 Gm Pack) 17 gm PO DAILY PRN PRN Reason: Constipation Stop: 11/16/20 21:07 Quetiapine Fumarate (Quetiapine Fumarate 25 Mg Tablet) 25 mg PO [facility] Stop: 11/16/20 21:07 Last Admin: 10/17/20 22:30 Dose: 25 mg Documented by: Sertraline HCl (Sertraline Hcl 100 Mg Tablet) 100 mg PO QAM [facility] Stop: 11/17/20 08:59 Last Admin: 10/18/20 08:15 Dose: 100 mg Documented by: Tamsulosin HCl (Tamsulosin Hcl 0.4 Mg Cap) 0.4 mg PO HS [facility] Stop: 11/16/20 21:07 Last Admin: 10/17/20 22:30 Dose: 0.4 mg Documented by: Umeclidinium/Vilanterol (Umeclidinium/Vilanterol 62.5/25mcg 7 Puffs/Inhaler) 1 puffs [facility] Stop: 11/17/20 08:59 Last Admin: 10/18/20 08:15 Dose: 1 puffs Documented by: (1) Multiple rib fractures Encounter type: initial encounter Fracture type: closed Laterality: left Qualified Code(s): S22.42XA - Multiple fractures of ribs, left side, initial encounter for closed fracture
[2020-10-18] MEDS: INSULIN ASPART 100 UNITS/ML 3 ML PEN SC SCH ×4 (08:53→21:27)
[2020-10-18 09:26] LABS: Hematocrit (blood only) 29.2 % (42-52); Hemoglobin 9.7 g/dL (14.0-18.0)
--- NOTE | 2020-10-18 10:27 | Electrocardiogram Report ---
Test Reason : Blood Pressure : / mmHG Vent. Rate : 123 BPM Atrial Rate : 123 BPM P-R Int : 160 ms QRS Dur : 120 ms QT Int : 336 ms P-R-T Axes : 000 056 265 degrees QTc Int : 481 ms Atrial flutter Left ventricular hypertrophy with QRS widening Abnormal ECG When compared with ECG of 17-OCT-2020 22:14, Lead placement is now correct ST less depressed in Inferior leads ST now depressed in Lateral leads Confirmed by Krystian Bryant ([id number]) on 10/18/2020 10:26:26 AM Referred By: REFERRED SELF Confirmed By:Lui Bryant
--- NOTE | 2020-10-18 10:42 | Hospitalist Progress Note ---
Date of Service October 18, 2020 Assessment & Plan (1) Weakness: Plan: Mr. Fields is an 89 yo male with PMHx significant for CAD (s/p CABG in 2003), T2DM, CKD4, anemia of chronic disease, and recent fall (with associated rib fractures, splenic laceration, and s/p splenectomy), who was admitted to [facility] on 10/17 for progressive weakness and dyspnea. Atrial Fibrillation with Rapid Ventricular Response Weakness/dyspnea x several days without focal infectious symptoms. HR 120s-130s while hospitalized and in a-flutter/a-fib. New diagnosis. CHADS-VASc score of 5. - TTE shows moderate MR and small organized anterior pericardial effusion - kim pect valvular a-fib due to MR - Cardiology consulted - appreciate recs - increased Toprol XL to 25mg PO BID - Lopressor 5mg IV PRN for HR >130 - start Eliquis 2.5mg PO BID (age + CKD) - I had a long conversation with Ewelina Purvis (daughter: [phone]) about risks/benefits of anti-coagulation in a patient with chronic anemia, recent fall and splenectomy, and overall bleeding risk (patient asked that I speak to Ewelina to make a decision about this). Ewelina would like for patient to be started on Eliquis. Elevated Troponin; CAD (h/o CABG) H/o chest pain in the last several days, EKG showing possible inferolateral ST depressions, Troponin peaked at .748 on admission --> suspect demand ischemia vs true NSTEMI. - Cardiology consulted - appreciate recs - no ischemic evaluation for now - will continue with a-fib management as stated above - continue Aspirin 81mg PO daily and Atorvastatin 80mg PO QAM - continue Metoprolol succinate as stated above - repeat EKG tomorrow - if ST changes improve as HRs are controlled, would strongly suspect cardiac ischemia/NSTEMI Chronic Normocytic Anemia Hgb 7.6 on admission (baseline 8-9), but given weakness/SOB with new a-fib with RVR, suspect that to be major contributor of current symptoms, rather than anemia. - s/p 2 units pRBCs on admission, Hgb increased appropriately to 9.7 - trend CBC daily - Transfuse for Hgb <8 (h/o CAD) - Chronic anemia is being worked up by Dr. Angel as an outpatient - continue outpatient weekly Epogen injections Anterior Pericardial Effusion Organized effusion, new per imaging. May be minor contributor to a-fib with RVR. - follow clinically for signs of tamponade, although unlikely given organized appearance on TTE Right Upper Lobe Consolidation Per CTA chest on admission. No signs/symptoms of infection/PNA. Suspect atelectasis in setting of recent fall/trauma. - follow clinically for changes - no abx for now Multiple Rib Fractures Secondary to trauma sustained in mid September 2020. - Lidoderm patch ordered - Tylenol prn - b/l lower lung field atelectasis noted on chest ct - incentive spirometry ordered T2DM HbA1c was 6.5 on 09/2020, below goal given age and comorbidities. - sliding scale insulin ordered - recommend consideration of discontinuing oral anti-glycemic given recent A1c being below goal; do not favor sulfonylurea use in the elderly CKD4 Cr at 1.4 --> 1.18 today (currently at baseline) - renally dose as appropriate - trend BMP QTc prolongation QTc 481ms. - continue home Sertraline for now but avoid other QTc-prolonging medications - repeat EKG tomorrow as stated above H/o Splenectomy Incision appears to be well healing. Abdominal exam benign. Fluid collected noted in vicinity of spleen on A/P cat scan. Suspect post-operative fluid collection > developing abscess. - serial exams BPH - continue home dose finasteride Anxiety/Depression - continue home dose sertraline DVT ppx: will hold off on chemo given Hgb of 7.6; SCDs Diet: Heart Healthy, DM2 Dispo: Med/surg with tele Code: DNR/DNI (2) Elevated troponin: (3) Multiple rib fractures: (4) Chronic kidney disease, stage 4 (severe): (5) Abnormal QT interval present on electrocardiogram: (6) Diabetes: (7) Coronary artery disease: (8) H/O splenectomy: (9) Tachycardia: (10) BPH (benign prostatic hyperplasia): Plan: (11) Anxiety and depression: Admission and Anticipated Discharge Date Admission Date: October 17, 2020 Supervising Physician Co-Signing Physician Notes I personally examined the patient and verified all hillman points of history and exam, discussed case, and agree with decision making with Dr Reyes. Still feeling weak. Notes that he is a bit confused. Cardiology input not ed/appreciated. Vitals noted, in general he is awake and alert but does seem to be easily confused and forgetful. He appears quite fatigued but no distress. HEENT normocephalic atraumatic mucous membranes moist. Breathing unlabored no accessory muscle use good effort. Cardio shows him to still be fairly tachycardic at the time I see him, no clearly notable rubs murmurs or gallops. Lungs clear to auscultation bilaterally no rales rhonchi or wheeze with good effort. Neuro shows no focal deficits. Weaknessagree likely multifactorial between RVR, demand ischemia, anemia. Clinically he does not appear infectedwatchful waiting at this time as it relates to the question of infiltrate noted on x-ray. Control RVR, transfused, continue to follow. Serial EKGs, given that while his troponin seems most consistent with demand ischemia, worsening coronary disease could also certainly be part of his weakness. Otherwise as above. Subjective Patient's HR continues to be 120s-130s since arrival at the hospital - rhythm is a-flutter per tele monitoring. Patient reports 2-3 days of worsening weakness and SOB since coming home from rehab. Also reports substernal chest pain several days ago that has been improving and has been resolved as of yesterday when he arrived at the hospital. He initially thought the pain was due to rib fractures that he sustained. Patient denies fever/chills, palpitations, cough, URI symptoms, recent sick contacts. Denies N/V, abdominal pain, rash. Review of Systems Review of Systems: All systems reviewed & are unremarkable except as noted in Subjective Physical Exam Physical Exam: General: A&Ox3. NAD. Cooperative. HEENT: Atraumatic, normocephalic. Pulm: CTAB A&P. -wheezes, -rales, -rhonchi. Symmetrical chest rise. No increase work of breathing. No respiratory distress. Cardiac: irregularly irregular rhythm, tachycardic rate, no murmurs/rubs/gallops appreciated. Radial pulses intact and symmetrical. No LE edema. Abdominal: soft, non-tender, non-distended, BS x 4 Skin: warm, dry, no rash Results & Data Results & Data ([facility]) Vital Signs (Past 12 Hours) Vital Signs Temp Pulse Pulse Resp BP BP Pulse Ox 10/18/20 09:14 130 H 147/92 H 10/18/20 06:10 36.5 C 130 H 18 147/92 H 94 10/18/20 05:45 36.5 C 126 H 20 150/79 H 97 10/18/20 04:45 36.5 C 124 H 18 120/74 95 10/18/20 04:15 36.5 C 124 H 20 124/72 96 10/18/20 04:00 36.5 C 128 H 18 133/78 97 10/18/20 03:44 36.5 C 129 H 18 132/79 96 10/18/20 03:20 36.9 C 127 H 20 126/71 97 10/18/20 02:30 36.7 C 127 H 20 147/79 H 97 10/18/20 01:30 36.7 C 127 H 20 156/89 H 97 10/18/20 01:00 36.7 C 128 H 20 136/80 97 10/18/20 00:45 36.8 C 126 H 126 H 20 142/73 H 142/73 H 97 10/18/20 00:21 36.9 C 126 H 18 133/73 99 10/17/20 23:00 36.8 C 124 H 20 126/70 98 Resident Activity Tracking Resident Involvement: Resident Care Provided Care Provided: Adult Hospital Medicine (1) BPH (benign prostatic hyperplasia) Lower urinary tract symptom presence: symptoms absent Qualified Code(s): N40.0 - Benign prostatic hyperplasia without lower urinary tract symptoms (2) Multiple rib fractures Encounter type: initial encounter Fracture type: closed Laterality: left Qualified Code(s): S22.42XA - Multiple fractures of ribs, left side, initial encounter for closed fracture (3) Diabetes Diabetes mellitus complication status: without complication Diabetes mellitus retirement insulin 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 transplanted heart: [place] heart Qualified Code(s): I25.10 - Atherosclerotic heart disease of [place] coronary artery without angina pectoris
[2020-10-18] MEDS: ASPIRIN 81 MG ECTAB PO SCH (12:04)
[2020-10-18] MEDS ORDERED: METOPROLOL TARTRATE 1 MG/ML VIAL IV PRN (12:13)
[2020-10-18] MEDS: METOPROLOL SUCC 25MG EXT REL TAB PO SCH ×2 (13:25→21:27)
--- NOTE | 2020-10-18 16:09 | Billing Data ---
Date of Service October 18, 2020 Coding Level of Care Code 93721 Subseq Hosp Care Lvl 3
[2020-10-18] MEDS ORDERED: METOPROLOL SUCC 25MG EXT REL TAB PO SCH (21:00)
[2020-10-18] MEDS: FINASTERIDE 5 MG TAB PO SCH (21:26)
[2020-10-18] MEDS: MIRABEGRON ER 25 MG TAB PO SCH (21:26)
[2020-10-18] MEDS: APIXABAN 2.5 MG TAB PO SCH (21:27)
[2020-10-18] MEDS: TAMSULOSIN HCL 0.4 MG CAP PO SCH (21:27)
[2020-10-18] MEDS: QUEtiapine FUMARATE 25 MG TABLET PO SCH (21:27)
[2020-10-18] MEDS: LIDOCAINE 5% 1 PATCH TD SCH (22:26)
[2020-10-19] MEDS: SERTRALINE HCL 100 MG TABLET PO SCH (07:41)
[2020-10-19] MEDS: UMECLIDINIUM/VILANTEROL 62.5/25MCG 7 PUFFS/INHALER INH SCH (07:41)
[2020-10-19] MEDS: ATORVASTATIN 40 MG TAB PO SCH (07:42)
[2020-10-19] MEDS: ASPIRIN 81 MG ECTAB PO SCH (07:42)
[2020-10-19] MEDS: PANTOprazole 40 MG TAB PO SCH (07:42)
[2020-10-19] MEDS: CEROVITE ADV FORMULA TAB PO SCH ×2 (07:42→20:54)
[2020-10-19] MEDS: METOPROLOL SUCC 25MG EXT REL TAB PO SCH (07:42)
[2020-10-19] MEDS: APIXABAN 2.5 MG TAB PO SCH ×2 (07:42→20:54)
--- NOTE | 2020-10-19 08:10 | Hospitalist Progress Note ---
Date of Service October 19, 2020 Assessment & Plan (1) PAF (paroxysmal atrial fibrillation): Plan: Mr. Fields is an 89 yo male with PMHx significant for CAD (s/p CABG in 2003), T2DM, CKD4, anemia of chronic disease, and recent fall (with associated rib fractures, splenic laceration, and s/p splenectomy), who was admitted to [facility] on 10/17 for progressive weakness and dyspnea. Atrial Fibrillation with Rapid Ventricular Response Weakness/dyspnea x several days without focal infectious symptoms. HR 120s-130s while hospitalized and in a-flutter/a-fib. New diagnosis. CHADS-VASc score of 5. - TTE shows moderate MR and small organized anterior pericardial effusion - suspect valvular a-fib due to MR - Cardiology consulted - appreciate recs - increased Toprol XL to 50mg PO BID - Given single dose of digoxin 0.5mg PO today by Cardiology - Lopressor 5mg IV PRN for HR >115 - Continue Eliquis 2.5mg PO BID (age + CKD) - Previous resident discussed with Ewelina Purvis (daughter: [phone]) about risks/benefits of anti-coagulation in a patient with chronic anemia, recent fall and splenectomy, and overall bleeding risk (patient asked that resident speak to Ewelina to make a decision about this). Ewelina would like for patient to be started on Eliquis. Elevated Troponin; CAD (h/o CABG) H/o chest pain in the last several days, EKG showing possible inferolateral ST depressions, Troponin peaked at .748 on admission --> suspect demand ischemia vs true NSTEMI. - Cardiology consulted - appreciate recs - no ischemic evaluation for now - will continue with a-fib management as stated above - continue Aspirin 81mg PO daily and Atorvastatin 80mg PO QAM - continue Metoprolol succinate as stated above - repeat EKG tomorrow - if ST changes improve as HRs are controlled, would strongly suspect cardiac ischemia/NSTEMI Chronic Normocytic Anemia Hgb 7.6 on admission (baseline 8-9), but given weakness/SOB with new a-fib with RVR, suspect that to be major contributor of current symptoms, rather than anemia. - s/p 2 units pRBCs on admission, Hgb increased appropriately to 9.7 - trend CBC daily - Transfuse for Hgb <8 (h/o CAD) - Chronic anemia is being worked up by Dr. Angel as an outpatient - continue outpatient weekly Epogen injections Anterior Pericardial Effusion Organized effusion, new per imaging. May be minor contributor to a-fib with RVR. - follow clinically for signs of tamponade, although unlikely given organized appearance on TTE Right Upper Lobe Consolidation Per CTA chest on admission. No signs/symptoms of infection/PNA. Suspect atelectasis in setting of recent fall/trauma. - follow clinically for changes - no abx for now Multiple Rib Fractures Secondary to trauma sustained in mid September 2020. - Lidoderm patch ordered - Tylenol prn - b/l lower lung field atelectasis noted on chest ct - incentive spirometry ordered T2DM HbA1c was 6.5 on 09/2020, below goal given age and comorbidities. - sliding scale insulin ordered - recommend consideration of discontinuing oral anti-glycemic given recent A1c being below goal; do not favor sulfonylurea use in the elderly CKD4 Cr at 1.4 --> 1.27 today (currently at baseline) - renally dose as appropriate - trend BMP QTc prolongation QTc 481ms. - continue home Sertraline for now but avoid other QTc-prolonging medications - repeat EKG tomorrow as stated above H/o Splenectomy Incision appears to be well healing. Abdominal exam benign. Fluid collected not ed in vicinity of spleen on A/P cat scan. Suspect post-operative fluid collection > developing abscess. - serial exams BPH - continue home dose finasteride Anxiety/Depression - continue home dose sertraline DVT ppx: will hold off on chemoppx given anemia; SCDs Diet: Heart Healthy, DM2 Dispo: Med/surg with tele Code: DNR/DNI (2) Elevated troponin: (3) Multiple rib fractures: (4) Chronic kidney disease, stage 4 (severe): (5) Abnormal QT interval present on electrocardiogram: (6) Diabetes: (7) Coronary artery disease: (8) H/O splenectomy: (9) Tachycardia: (10) BPH (benign prostatic hyperplasia): Admission and Anticipated Discharge Date Admission Date: October 17, 2020 Supervising Physician Co-Signing Physician Notes Patient seen and examined with PGY-2 Dr. Deal. Agree with history, exam findings, assessment and plan of care as outlined. In brief, Mr. Fields is an 89 year old male with hx of CAD (S/p CABG in 2003), DM2, CKD Stage 4, anemia of chronic disease admitted with progressive weakness and dyspnea, found to be in afib with RVR. Today, feeling a bit better. No chest pain or dyspnea. Fatigue is improved. Concerned about whether or not the new aflutter issues will be an issue forever and if he will require a procedure. Vital signs and nursing notes reviewed. Heart with irregularly irregular rhythm. Rate 110-130 overnight. Lungs are clear to auscultation. Labs and imaging reviewed. 1. Aflutter/afib with RVR. CHADS-VASC=5. Rate not well controlled. TTE with moderate MR. Toprolol XL to 50mg BID. Given oral loading dosing of dig 0.5mg today. Started AC with Eliquis 2.5mg BID. Appreciate cardiology recommendations. 2. Elevated troponin. Demand ischemia (type 2) secondary to aflutter/afib with RVR and anemia. Continue home ASA and atorvastatin. 3. Anemia of chronic disease. Baseline hgb 8-9. S/p 2 units PRBCs on admission for hgb of 7.6. Goal hemoglobin > 9 per cardiology. Hgb today is 10.9. Followed by hematology as an outpatient. Continue weekly epogen. 4. DM2. Sliding scale insulin. 5. CKD. Stable. 6. QTc prolongation. Avoid QT prolonging medications. Dispo: pending clinical improvement. PT/OThome with home health. Subjective Patient doing well this AM. No complaints. He did mention being somewhat confused about the new afib diagnosis and how this fit into his previous problems as well as what this means prognostically for him. I explained that as long as he's adequately rate-controlled and is anticoagulated, he should not have any issues going forward. Review of Systems Review of Systems: All systems reviewed & are unremarkable except as noted in Subjective Physical Exam Physical Exam: General: A&Ox3. NAD. Cooperative. HEENT: Atraumatic, normocephalic. Pulm: CTAB A&P. -wheezes, -rales, -rhonchi. Symmetrical chest rise. No increase work of breathing. No respiratory distress. Cardiac: irregularly irregular rhythm, tachycardic rate, no murmurs/rubs/gallops appreciated. Radial pulses intact and symmetrical. No LE edema. Abdominal: soft, non-tender, non-distended, BS x 4 Skin: warm, dry, no rash Results & Data Results & Data ([facility]) Vital Signs (Past 12 Hours) Vital Signs Temp Pulse Resp BP Pulse Ox 10/19/20 07:57 37.0 C 112 H 20 136/66 96 10/19/20 03:00 36.4 C L 105 H 20 131/79 97 10/18/20 23:00 36.8 C 109 H 20 118/61 94 Resident Activity Tracking Resident Involvement: Resident Care Provided Care Provided: Adult [facility] Medicine (1) BPH (benign prostatic hyperplasia) Lower urinary tract symptom presence: symptoms absent Qualified Code(s): N40.0 - Benign prostatic hyperplasia without lower urinary tract symptoms (2) Multiple rib fractures Encounter type: initial encounter Fracture type: closed Laterality: left Qualified Code(s): S22.42XA - Multiple fractures of ribs, left side, initial encounter for closed fracture (3) Diabetes Diabetes mellitus complication status: without complication 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 transplanted heart: [place] heart Qualified Code(s): I25.10 - Atherosclerotic heart disease of [place] coronary artery without angina pectoris
[2020-10-19] MEDS ORDERED: METOPROLOL TARTRATE 1 MG/ML VIAL IV PRN (08:20)
[2020-10-19] MEDS: INSULIN ASPART 100 UNITS/ML 3 ML PEN SC SCH ×4 (08:29→20:46)
[2020-10-19] MEDS ORDERED: METOPROLOL SUCC 25MG EXT REL TAB PO ONE (08:45)
[2020-10-19 09:31] LABS: BUN Creatinine Ratio 19.7 (10-20); Calcium 8.8 mg/dl (8.5-10.1); Creatinine Clr Calc Pharmacy 39.8 ml/min; Est GFR (African American) 58.1 ml/min; Est GFR (Non-African American) 50.1 ml/min; Magnesium 1.8 mg/dl (1.8-2.4); Potassium 4.5 mmol/L (3.5-5.1)
[2020-10-19 09:54] LABS: ALC (manual) 1.65 K/uL (1.2-3.4); ANC (manual) 7.27 K/uL (1.4-6.5); Anisocytosis Present; Basophilic Stippling 1+; Echinocytes 1+; Giant Platelets 1+; Hematocrit (blood only) 33.3 % (42-52); Hemoglobin 10.9 g/dL (14.0-18.0); Lymphocytes # (manual) 1.65 K/uL (1.2-3.4); Lymphocytes % (manual) 17.2 %; Mean Corpuscular Hemoglobin 30.2 pg (25-34); Mean Corpuscular Hgb Conc 32.7 g/dL (32-36); Mean Corpuscular Volume 92.2 fL (80-100); Mean Platelet Volume 12.9 fL (7.4-10.4); Monocytes # (manual) 0.49 K/uL (0.11-0.59); Monocytes % (manual) 5.1 %; Neutrophils # (manual) 7.27 K/uL (1.4-6.5); Neutrophils % (manual) 75.7 %; Nucleated RBC # (auto) 8.53 K/uL (0-0); Nucleated RBC % (auto) 88.7 %; Platelet Count 148 K/uL (130-400); Platelet Estimate Normal (Normal); Polychromasia 1+; RDW Coefficient of Variation 14.9 % (11.5-14.5); RDW Standard Deviation 49.4 fL (36.4-46.3); Red Blood Count 3.61 M/uL (4.7-6.1); White Blood Count 9.61 K/uL (4.8-10.8)
[2020-10-19 09:55] LABS: Phosphorus 2.9 mg/dl (2.5-4.9); Troponin I 0.548 ng/ml (0-0.045)
[2020-10-19] MEDS ORDERED: DIGOXIN 0.25 MG TAB PO ONE (10:38)
--- NOTE | 2020-10-19 10:43 | Cardiology Progress Note ---
Date of Service October 19, 2020 Assessment & Plan (1) Weakness: (2) Elevated troponin: (3) Hx of splenectomy: (4) PAF (paroxysmal atrial fibrillation): (5) Myelodysplasia (myelodysplastic syndrome): (6) Multiple rib fractures: Plan: The patient is currently clinically stable however, he continues to have high heart rates with his atrial flutter. He is already on an adequate dose of metoprolol. I will give him a dose of digoxin 0.5 mg today p.o. Admission and Anticipated Discharge Date Admission Date: October 17, 2020 Subjective The patient had an uneventful night. Review of Systems Review of Systems: Review of Systems: See HPI for pertinent positives. All other 10 point review of systems are negative. Physical Exam Physical Exam: General: no acute distress and stated age Head: normocephalic, no masses, lesions, tenderness or abnormalities Eyes: conjunctiva are pink and non-injected, sclera clear Neck: supple, no adenopathy, no bruits, normal jugular venous pulse, no hepatojugular reflux Chest: normal shape and normal respiratory effort Lungs: clear to auscultation and percussion Cardiac Exam: - irregular rate & rhythm, no murmurs gallops or rubs - normal S1, normal S2 Pulses: 2(+) throughout Abdomen: abdomen soft, non-tender, no abnormal masses and no hepatosplenomegaly Musculoskeletal: no gait disturbance, no joint inflammation, no deforming arthritis Extremities: no edema and no cyanosis Neuro: grossly normal exam Results & Data ([facility]) Vital Signs (Past 12 Hours) Vital Signs Temp Pulse Resp BP Pulse Ox 10/19/20 07:57 37.0 C 112 H 20 136/66 96 10/19/20 03:00 36.4 C L 105 H 20 131/79 97 10/18/20 23:00 36.8 C 109 H 20 118/61 94 Laboratory Results Laboratory Results - last 24 hr 10/18/20 10/18/20 10/18/20 11:32 12:30 16:45 WBC RBC Hgb Hct MCV MCH MCHC RDW Std Deviation RDW Coeff of Leeanna Plt Count MPV Absolute Nucleated RBC Nucleated RBC % (auto) Neutrophils % (Manual) Lymphocytes % (Manual) Monocytes % (Manual) Eosinophils % (Manual) Basophils % (Manual) Neutrophils # (Manual) Total Absolute Neuts Lymphocytes # (Manual) Total Abs Lymphocytes Monocytes # (Manual) Eosinophils # (Manual) Basophils # (Manual) Hypersegmented Neuts Platelet Estimate Giant Platelets Polychromasia Basophilic Stippling Anisocytosis Echinocytes Sodium Potassium Chloride Carbon Dioxide Anion Gap BUN Creatinine Est Cr Clr Drug Dosing Est GFR ( Amer) Est GFR (Non-Af Amer) BUN/Creatinine Ratio Glucose POC Glucose 166 H 132 H Calcium Phosphorus Magnesium Troponin I 0.610 H* 10/18/20 10/19/20 10/19/20 20:26 07:41 08:44 WBC 9.61 RBC 3.61 L Hgb 10.9 L Hct 33.3 L MCV 92.2 MCH 30.2 MCHC 32.7 RDW Std Deviation 49.4 H RDW Coeff of Leeanna 14.9 H Plt Count 148 MPV 12.9 H Absolute Nucleated RBC 8.53 H Nucleated RBC % (auto) 88.7 Neutrophils % (Manual) 75.7 Lymphocytes % (Manual) 17.2 Monocytes % (Manual) 5.1 Eosinophils % (Manual) 1.0 Basophils % (Manual) 1.0 Neutrophils # (Manual) 7.27 H Total Absolute Neuts 7.27 H Lymphocytes # (Manual) 1.65 Total Abs Lymphocytes 1.65 Monocytes # (Manual) 0.49 Eosinophils # (Manual) 0.10 Basophils # (Manual) 0.10 Hypersegmented Neuts 1+ Platelet Estimate Normal Giant Platelets 1+ Polychromasia 1+ Basophilic Stippling 1+ Anisocytosis Present Echinocytes 1+ Sodium Potassium Chloride Carbon Dioxide Anion Gap BUN Creatinine Est Cr Clr Drug Dosing Est GFR ( Amer) Est GFR (Non-Af Amer) BUN/Creatinine Ratio Glucose POC Glucose 174 H 132 H Calcium Phosphorus Magnesium Troponin I 10/19/20 08:44 WBC RBC Hgb Hct MCV MCH MCHC RDW Std Deviation RDW Coeff of Leeanna Plt Count MPV Absolute Nucleated RBC Nucleated RBC % (auto) Neutrophils % (Manual) Lymphocytes % (Manual) Monocytes % (Manual) Eosinophils % (Manual) Basophils % (Manual) Neutrophils # (Manual) Total Absolute Neuts Lymphocytes # (Manual) Total Abs Lymphocytes Monocytes # (Manual) Eosinophils # (Manual) Basophils # (Manual) Hypersegmented Neuts Platelet Estimate Giant Platelets Polychromasia Basophilic Stippling Anisocytosis Echinocytes Sodium 137 Potassium 4.5 Chloride 106 Carbon Dioxide 22 Anion Gap 9.0 BUN 25 H Creatinine 1.27 Est Cr Clr Drug Dosing 39.8 Est GFR ( Amer) 58.1 Est GFR (Non-Af Amer) 50.1 BUN/Creatinine Ratio 19.7 Glucose 186 H POC Glucose Calcium 8.8 Phosphorus 2.9 Magnesium 1.8 Troponin I 0.548 H* Medications Administered Current Inpatient Medications Acetaminophen (Acetaminophen 325 Mg Tab) 650 mg PO Q4H PRN PRN Reason: Pain or Fever Stop: 11/16/20 21:07 Apixaban (Apixaban 2.5 Mg Tab) 2.5 mg PO BID [facility] Stop: 11/17/20 20:59 Last Admin: 10/19/20 07:42 Dose: 2.5 mg Documented by: Aspirin (Aspirin 81 Mg Ectab) 81 mg PO [facility] Stop: 11/17/20 10:44 Last Admin: 10/19/20 07:42 Dose: 81 mg Documented by: Atorvastatin Calcium (Atorvastatin 40 Mg Tab) 80 mg PO [facility] Stop: 11/17/20 08:59 Last Admin: 10/19/20 07:42 Dose: 80 mg Documented by: Dextrose (Dextrose 50% 50 Ml Syringe) 25 - 50 ml IV UD PRN; Protocol PRN Reason: Hypoglycemia Protocol Stop: 11/16/20 21:07 Digoxin (Digoxin 0.25 Mg Tab) 0.5 mg PO [facility] Stop: 10/19/20 10:39 Finasteride (Finasteride 5 Mg Tab) 5 mg PO [facility] Stop: 11/16/20 21:07 Last Admin: 10/18/20 21:26 Dose: 5 mg Documented by: Glucagon (Glucagon For Inj 1 Mg Vial) 1 mg SQ UD PRN; Protocol PRN Reason: Hypoglycemia Protocol Stop: 11/16/20 21:07 Glucose (Glucose 10 Tabs/Tube) 4 - 8 tabs PO UD PRN; Protocol PRN Reason: Hypoglycemia Protocol Stop: 11/16/20 21:07 Glucose (Glucose 40% Gel 15 Gm Tube) 15 - 30 gm PO UD PRN; Protocol PRN Reason: Hypoglycemia Protocol Stop: 11/16/20 21:07 Sodium Chloride (Nss) 250 mls @ 15 mls/hr IV .[id number] PRN PRN Reason: For Transfusion Stop: 11/16/20 21:07 Insulin Aspart (Insulin Aspart 100 Units/Ml 3 Ml Pen) 0 units SC [facility] Stop: 11/16/20 21:07 Last Admin: 10/19/20 08:29 Dose: 2 units Documented by: Lidocaine (Lidocaine 5% 1 Patch) 1 patch TD PM [facility] Stop: 11/16/20 21:07 Last Admin: 10/18/20 22:26 Dose: Not Given Documented by: Metoprolol Succinate (Metoprolol Succ 50mg Ext Rel Tab) 50 mg PO BID [facility] Stop: 11/18/20 20:59 Metoprolol Tartrate (Metoprolol Tartrate 1 Mg/Ml Vial) 5 mg IV Q5M PRN PRN Reason: Tachycardia / HR >115 Stop: 11/17/20 12:12 Mirabegron (Mirabegron Er 25 Mg Tab) 25 mg PO [facility] Stop: 11/16/20 21:07 Last Admin: 10/18/20 21:26 Dose: 25 mg Documented by: Miscellaneous (Remove Lidoderm Patch) 1 ea N/A [facility] Stop: 11/17/20 08:59 Last Admin: 10/19/20 07:41 Dose: Not Given Documented by: Miscellaneous (Carbohydrates For Hypoglycemia ) 15 - 30 gm PO UD PRN PRN Reason: Hypoglycemia Protocol Stop: 11/16/20 21:07 Multivitamins/Minerals (Cerovite Adv Formula Tab) 1 tab PO [facility] Stop: 11/17/20 08:59 Last Admin: 10/19/20 07:42 Dose: 1 tab Documented by: Pantoprazole Sodium (Pantoprazole 40 Mg Tab) 40 mg PO [facility] Stop: 11/17/20 08:59 Last Admin: 10/19/20 07:42 Dose: 40 mg Documented by: Polyethylene Glycol (Polyethylene (Miralax) 17 Gm Pack) 17 gm PO DAILY PRN PRN Reason: Constipation Stop: 11/16/20 21:07 Quetiapine Fumarate (Quetiapine Fumarate 25 Mg Tablet) 25 mg PO [facility] Stop: 11/16/20 21:07 Last Admin: 10/18/20 21:27 Dose: 25 mg Documented by: Sertraline HCl (Sertraline Hcl 100 Mg Tablet) [facility]: 11/17/20 08:59 Last Admin: 10/19/20 07:41 Dose: 100 mg Documented by: Tamsulosin HCl (Tamsulosin Hcl 0.4 Mg Cap) 0.4 mg PO HS [facility] Stop: 11/16/20 21:07 Last Admin: 10/18/20 21:27 Dose: 0.4 mg Documented by: Umeclidinium/Vilanterol (Umeclidinium/Vilanterol 62.5/25mcg 7 Puffs/Inhaler) 1 puffs INH QAM [facility] Stop: 11/17/20 08:59 Last Admin: 10/19/20 07:41 Dose: 1 puffs Documented by: (1) Multiple rib fractures Encounter type: initial encounter Fracture type: closed Laterality: left Qualified Code(s): S22.42XA - Multiple fractures of ribs, left side, initial encounter for closed fracture
[2020-10-19] MEDS ORDERED: EPOETIN ALFA 40,000 UNITS/ML VIAL IV ONE (17:22)
--- NOTE | 2020-10-19 18:08 | Electrocardiogram Report ---
Test Reason : Blood Pressure : / mmHG Vent. Rate : 128 BPM Atrial Rate : 128 BPM P-R Int : 176 ms QRS Dur : 116 ms QT Int : 330 ms P-R-T Axes : 000 075 -64 degrees QTc Int : 481 ms Atrial flutter Abnormal ECG Confirmed by Krystian Bryant ([id number]) on 10/19/2020 6:08:14 PM Referred By: REFERRED SELF Confirmed By:Lui Bryant
[2020-10-19] MEDS: LIDOCAINE 5% 1 PATCH TD SCH (20:46)
[2020-10-19] MEDS: MIRABEGRON ER 25 MG TAB PO SCH (20:54)
[2020-10-19] MEDS: QUEtiapine FUMARATE 25 MG TABLET PO SCH (20:54)
[2020-10-19] MEDS: METOPROLOL SUCC 50MG EXT REL TAB PO SCH (20:54)
[2020-10-19] MEDS: FINASTERIDE 5 MG TAB PO SCH (20:54)
[2020-10-19] MEDS: TAMSULOSIN HCL 0.4 MG CAP PO SCH (20:54)
[2020-10-19] MEDS ORDERED: METOPROLOL SUCC 50MG EXT REL TAB PO SCH (21:00)
[2020-10-20 07:23] LABS: Mean Corpuscular Hgb Conc 32.5 g/dL (32-36)
[2020-10-20] MEDS: CEROVITE ADV FORMULA TAB PO SCH (07:24)
[2020-10-20] MEDS: PANTOprazole 40 MG TAB PO SCH (07:24)
[2020-10-20] MEDS: SERTRALINE HCL 100 MG TABLET PO SCH (07:24)
[2020-10-20] MEDS: UMECLIDINIUM/VILANTEROL 62.5/25MCG 7 PUFFS/INHALER INH SCH (07:24)
[2020-10-20] MEDS: METOPROLOL SUCC 50MG EXT REL TAB PO SCH (07:24)
[2020-10-20] MEDS: ASPIRIN 81 MG ECTAB PO SCH (07:25)
[2020-10-20] MEDS: ATORVASTATIN 40 MG TAB PO SCH (07:25)
[2020-10-20] MEDS: APIXABAN 2.5 MG TAB PO SCH (07:25)
[2020-10-20 07:51] LABS: BUN Creatinine Ratio 22.4 (10-20); Calcium 8.5 mg/dl (8.5-10.1); Creatinine Clr Calc Pharmacy 40.7 ml/min; Est GFR (African American) 62.8 ml/min; Est GFR (Non-African American) 54.2 ml/min; Potassium 4.3 mmol/L (3.5-5.1)
[2020-10-20 08:05] LABS: Hematocrit (blood only) 31.7 % (42-52); Hemoglobin 10.3 g/dL (14.0-18.0); Mean Corpuscular Hemoglobin 30.4 pg (25-34); Mean Corpuscular Volume 93.5 fL (80-100); Mean Platelet Volume 13.4 fL (7.4-10.4); Nucleated RBC # (auto) 7.74 K/uL (0-0); Nucleated RBC % (auto) 91.7 %; Platelet Count 131 K/uL (130-400); RDW Coefficient of Variation 14.8 % (11.5-14.5); RDW Standard Deviation 49.4 fL (36.4-46.3); Red Blood Count 3.39 M/uL (4.7-6.1); White Blood Count 8.45 K/uL (4.8-10.8)
[2020-10-20 08:06] LABS: ANC (manual) 6.34 K/uL (1.4-6.5); Anisocytosis Present; Lymphocytes % (manual) 11.8 %; Monocytes # (manual) 1.12 K/uL (0.11-0.59); Monocytes % (manual) 13.2 %; Neutrophils # (manual) 6.34 K/uL (1.4-6.5); Platelet Estimate Normal (Normal); Polychromasia 1+
[2020-10-20] MEDS: INSULIN ASPART 100 UNITS/ML 3 ML PEN SC SCH ×2 (08:52→12:12)
--- NOTE | 2020-10-20 09:21 | Cardiology Progress Note ---
Date of Service October 20, 2020 Assessment & Plan (1) Weakness: (2) Elevated troponin: (3) Hx of splenectomy: (4) PAF (paroxysmal atrial fibrillation): (5) Myelodysplasia (myelodysplastic syndrome): (6) Multiple rib fractures: Plan: Patient remains in atrial flutter however, his heart rates are better controlled today. No additional recommendations at this time. Admission and Anticipated Discharge Date Admission Date: October 17, 2020 Subjective The patient had an uneventful night. He is resting comfortably. Review of Systems Review of Systems: Review of Systems: See HPI for pertinent positives. All other 10 point review of systems are negative. Physical Exam Physical Exam: General: no acute distress and stated age Head: normocephalic, no masses, lesions, tenderness or abnormalities Eyes: conjunctiva are pink and non-injected, sclera clear Neck: supple, no adenopathy, no bruits, normal jugular venous pulse, no hepatojugular reflux Chest: normal shape and normal respiratory effort Lungs: clear to auscultation and percussion Cardiac Exam: irregular rate & rhythm, no murmurs gallops or rubs - normal S1, normal S2 Pulses: 2(+) throughout Abdomen: abdomen soft, non-tender, no abnormal masses and no hepatosplenomegaly Musculoskeletal: no gait disturbance, no joint inflammation, no deforming arthritis Extremities: no edema and no cyanosis Neuro: grossly normal exam Results & Data ([facility]) Vital Signs (Past 12 Hours) Vital Signs Temp Pulse Pulse Resp BP BP Pulse Ox 10/20/20 07:45 36.5 C 82 20 131/70 95 10/20/20 04:00 36.6 C 79 18 128/68 95 10/20/20 02:26 87 Laboratory Results Laboratory Results - last 24 hr 10/19/20 10/19/20 10/19/20 08:44 08:44 11:40 WBC 9.61 RBC 3.61 L Hgb 10.9 L Hct 33.3 L MCV 92.2 MCH 30.2 MCHC 32.7 RDW Std Deviation 49.4 H RDW Coeff of Leeanna 14.9 H Plt Count 148 MPV 12.9 H Absolute Nucleated RBC 8.53 H Nucleated RBC % (auto) 88.7 Neutrophils % (Manual) 75.7 Lymphocytes % (Manual) 17.2 Monocytes % (Manual) 5.1 Eosinophils % (Manual) 1.0 Basophils % (Manual) 1.0 Neutrophils # (Manual) 7.27 H Total Absolute Neuts 7.27 H Lymphocytes # (Manual) 1.65 Total Abs Lymphocytes 1.65 Monocytes # (Manual) 0.49 Eosinophils # (Manual) 0.10 Basophils # (Manual) 0.10 Hypersegmented Neuts 1+ Platelet Estimate Normal Giant Platelets 1+ Polychromasia 1+ Basophilic Stippling 1+ Anisocytosis Present Echinocytes 1+ Sodium 137 Potassium 4.5 Chloride 106 Carbon Dioxide 22 Anion Gap 9.0 BUN 25 H Creatinine 1.27 Est Cr Clr Drug Dosing 39.8 Est GFR ( Amer) 58.1 Est GFR (Non-Af Amer) 50.1 BUN/Creatinine Ratio 19.7 Glucose 186 H POC Glucose 215 H Calcium 8.8 Phosphorus 2.9 Magnesium 1.8 Troponin I 0.548 H* 10/19/20 10/19/20 10/20/20 16:45 20:13 06:31 WBC 8.45 RBC 3.39 L Hgb 10.3 L Hct 31.7 L MCV 93.5 MCH 30.4 MCHC 32.5 RDW Std Deviation 49.4 H RDW Coeff of Leeanna 14.8 H Plt Count 131 MPV 13.4 H Absolute Nucleated RBC 7.74 H Nucleated RBC % (auto) 91.7 Neutrophils % (Manual) 75.0 Lymphocytes % (Manual) 11.8 Monocytes % (Manual) 13.2 Eosinophils % (Manual) Basophils % (Manual) Neutrophils # (Manual) 6.34 Total Absolute Neuts 6.34 Lymphocytes # (Manual) 1.00 L Total Abs Lymphocytes 1.00 L Monocytes # (Manual) 1.12 H Eosinophils # (Manual) Basophils # (Manual) Hypersegmented Neuts Platelet Estimate Normal Giant Platelets Polychromasia 1+ Basophilic Stippling Anisocytosis Present Echinocytes Sodium Potassium Chloride Carbon Dioxide Anion Gap BUN Creatinine Est Cr Clr Drug Dosing Est GFR ( Amer) Est GFR (Non-Af Amer) BUN/Creatinine Ratio Glucose POC Glucose 112 H 129 H Calcium Phosphorus Magnesium Troponin I 10/20/20 10/20/20 06:31 07:57 WBC RBC Hgb Hct MCV MCH MCHC RDW Std Deviation RDW Coeff of Leeanna Plt Count MPV Absolute Nucleated RBC Nucleated RBC % (auto) Neutrophils % (Manual) Lymphocytes % (Manual) Monocytes % (Manual) Eosinophils % (Manual) Basophils % (Manual) Neutrophils # (Manual) Total Absolute Neuts Lymphocytes # (Manual) Total Abs Lymphocytes Monocytes # (Manual) Eosinophils # (Manual) Basophils # (Manual) Hypersegmented Neuts Platelet Estimate Giant Platelets Polychromasia Basophilic Stippling Anisocytosis Echinocytes Sodium 134 L Potassium 4.3 Chloride 106 Carbon Dioxide 23 Anion Gap 5.0 BUN 27 H Creatinine 1.19 Est Cr Clr Drug Dosing 40.7 Est GFR ( Amer) 62.8 Est GFR (Non-Af Amer) 54.2 BUN/Creatinine Ratio 22.4 H Glucose 130 H POC Glucose 161 H Calcium 8.5 Phosphorus Magnesium Troponin I Medications Administered Current Inpatient Medications Acetaminophen (Acetaminophen 325 Mg Tab) 650 mg PO Q4H PRN PRN Reason: Pain or Fever Stop: 11/16/20 21:07 Apixaban (Apixaban 2.5 Mg Tab) 2.5 mg PO BID [facility] Stop: 11/17/20 20:59 Last Admin: 10/20/20 07:25 Dose: 2.5 mg Documented by: Aspirin (Aspirin 81 Mg Ectab) 81 mg PO QAM [facility] Stop: 11/17/20 10:44 Last Admin: 10/20/20 07:25 Dose: 81 mg Documented by: Atorvastatin Calcium (Atorvastatin 40 Mg Tab) 80 mg PO [facility] Stop: 11/17/20 08:59 Last Admin: 10/20/20 07:25 Dose: 80 mg Documented by: Dextrose (Dextrose 50% 50 Ml Syringe) 25 - 50 ml IV UD PRN; Protocol PRN Reason: Hypoglycemia Protocol Stop: 11/16/20 21:07 Finasteride (Finasteride 5 Mg Tab) 5 mg PO [facility] Stop: 11/16/20 21:07 Last Admin: 10/19/20 20:54 Dose: 5 mg Documented by: Glucagon (Glucagon For Inj 1 Mg Vial) 1 mg SQ UD PRN; Protocol PRN Reason: Hypoglycemia Protocol Stop: 11/16/20 21:07 Glucose (Glucose 10 Tabs/Tube) 4 - 8 tabs PO UD PRN; Protocol PRN Reason: Hypoglycemia Protocol Stop: 11/16/20 21:07 Glucose (Glucose 40% Gel 15 Gm Tube) 15 - 30 gm PO UD PRN; Protocol PRN Reason: Hypoglycemia Protocol Stop: 11/16/20 21:07 Sodium Chloride (Nss) 250 mls @ 15 mls/hr IV .[id number] PRN PRN Reason: For Transfusion Stop: 11/16/20 21:07 Insulin Aspart (Insulin Aspart 100 Units/Ml 3 Ml Pen) 0 units SC [facility] Stop: 11/16/20 21:07 Last Admin: 10/20/20 08:52 Dose: 1 units Documented by: Lidocaine (Lidocaine 5% 1 Patch) 1 patch TD PM [facility] Stop: 11/16/20 21:07 Last Admin: 10/19/20 20:46 Dose: 1 patch Documented by: Metoprolol Succinate (Metoprolol Succ 50mg Ext Rel Tab) 50 mg PO BID [facility] Stop: 11/18/20 20:59 Last Admin: 10/20/20 07:24 Dose: 50 mg Documented by: Metoprolol Tartrate (Metoprolol Tartrate 1 Mg/Ml Vial) 5 mg IV Q5M PRN PRN Reason: Tachycardia / HR >115 Stop: 11/17/20 12:12 Mirabegron (Mirabegron Er 25 Mg Tab) 25 mg PO [facility] Stop: 11/16/20 21:07 Last Admin: 10/19/20 20:54 Dose: 25 mg Documented by: Miscellaneous (Remove Lidoderm Patch) 1 ea N/A [facility] Stop: 11/17/20 08:59 Last Admin: 10/20/20 07:25 Dose: 1 ea Documented by: Miscellaneous (Carbohydrates For Hypoglycemia ) 15 - 30 gm PO UD PRN PRN Reason: Hypoglycemia Protocol Stop: 11/16/20 21:07 Multivitamins/Minerals (Cerovite Adv Formula Tab) 1 tab PO [facility] [address] [address] Stop: 11/17/20 08:59 Last Admin: 10/20/20 07:24 Dose: 1 tab Documented by: Pantoprazole Sodium (Pantoprazole 40 Mg Tab) 40 mg PO QAM [facility] Stop: 11/17/20 08:59 Last Admin: 10/20/20 07:24 Dose: 40 mg Documented by: Polyethylene Glycol (Polyethylene (Miralax) 17 Gm Pack) 17 gm PO DAILY PRN PRN Reason: Constipation Stop: 11/16/20 21:07 Quetiapine Fumarate (Quetiapine Fumarate 25 Mg Tablet) 25 mg PO [facility] Stop: 11/16/20 21:07 Last Admin: 10/19/20 20:54 Dose: 25 mg Documented by: Sertraline HCl (Sertraline Hcl 100 Mg Tablet) 100 mg PO QAM [facility] Stop: 11/17/20 08:59 Last Admin: 10/20/20 07:24 Dose: 100 mg Documented by: Tamsulosin HCl (Tamsulosin Hcl 0.4 Mg Cap) 0.4 mg PO HS [facility] Stop: 11/16/20 21:07 Last Admin: 10/19/20 20:54 Dose: 0.4 mg Documented by: Umeclidinium/Vilanterol (Umeclidinium/Vilanterol 62.5/25mcg 7 Puffs/Inhaler) [facility] [place] Stop: 11/17/20 08:59 Last Admin: 10/20/20 07:24 Dose: 1 puffs Documented by: (1) Multiple rib fractures Encounter type: initial encounter Fracture type: closed Laterality: left Qualified Code(s): S22.42XA - Multiple fractures of ribs, left side, initial encounter for closed fracture
--- NOTE | 2020-10-20 10:23 | Billing Data ---
Date of Service October 20, 2020 Coding Level of Care Code 78261 Initial Inpt Care Lvl 3
--- NOTE | 2020-10-20 11:34 | Discharge Summary ---
Date of Service October 20, 2020 Admission HPI Per Admitting Provider Mr. Fields is an 89 yo gentleman with a PMHx of CAD s/p CABG who presented to the [facility] ED for evaluation of weakness. For the past day or so, he has become progressively weak and fatigued with minimal exertion. He went down on his knees twice today and did not have the strength to lift himself back up. His daughter is present at beside and provides much of the history. His blood counts have been low for past several months. He has been seen by Dr. [facility] - daughter reports a discussion/suspicion of a blood cancer, although work up has apparently not been completed and/or confirmatory. He has had to get one-two blood transfusions per month for the past several months due to low hemoglobin levels. He also gets weekly Epogen injections. Of note, he had a splenectomy and suffered several left sided fib fractures from a trauma 3 weeks ago. He has some residual left sided chest wall pain from the rib fractures. Daughter reports he has only been home from [facility] for several days following the trauma dn subsequent operations. She reicved notification that a script for cipro was sent into their pharmacy for him, but she has no idea which doctor sent it and why. Thus, Mr. Fields has not started it. Patient does take a daily baby ASA, but is not on a blood thinner. He denies nay nosebleeds, hematuria, or blood in stool or melena. He denies any preceding illness. He has been fully vaccinated against COVID. In the ED, he was febrile, but tachycardic to 125 bpm. Blood pressure 142/86. Breathing well on room air. His Hgb was 7.6, down from 8.2 when last checked on 10/13/20. His MCV is 95. His WBC and platelets were normal. His electrolytes and LFTs were normal, Cr 1.46, BUN at 32. Trop elevated to 0.748. Lipase not elevated. COVID 19 negative. UA ordered. EKG showing evidence of new inferolateral ST segment depression when compared to ECG in 09/2020. Chest CTA showing no evidence of pulmonary embolism, interval development of mild collection within inferior aspect of the pericardium; interval development of b/l lower lung atelectasis and pleural effusions. CT of abdomen and pelvis showing a fluid collection near the sit of his recent splenectomy, post operative fluid collection vs: abscess; prominent gallbladder wall and centra intrahepatic ducts concerning for developing acute cholecystitis. Patient was given 1 liter of NSS and 20mg IV famotidine. Principal Diagnosis afib with RVR Discharge Exam Constitutional WD/WN, vitals as above cooperative and comfortable; no acute distress ENMT external ear and nose normal, oropharynx normal Respiratory normal respiratory effort; no respiratory distress, no labored breathing, no cough and not tachypneic Auscultation: no crackles and no wheezes Cardiovascular RRR, no murmur, no edema Skin no rashes, warm and dry Psychiatric A+Ox3, euthymic affect Discharge Data Allergies Allergy/AdvReac Type Severity Reaction Status Date / Time cefuroxime Allergy Intermediate Hives Verified 10/17/20 19:20 Penicillins Allergy Mild Hives Verified 10/17/20 19:20 olanzapine AdvReac Intermediate Hallucinations, Verified 10/17/20 19:20 confusion and panic Consultations 10/17/20 19:49 ED Decision to Admit Stat 10/18/20 07:57 Consult Cardiology Routine Ordered Studies 10/17/20 17:18 CT angio chest PE protocol Stat 10/17/20 17:26 CT abd pelvis IV con only Stat Hospital Course (1) PAF (paroxysmal atrial fibrillation): Mr. Fields is an 89 yo male with PMHx significant for CAD (s/p CABG in 2003), T2DM, CKD4, anemia of chronic disease, and recent fall (with associated rib fractures, splenic laceration, and s/p splenectomy), who was admitted to [facility] on 10/17 for progressive weakness and dyspnea. Atrial Fibrillation with Rapid Ventricular Response Weakness/dyspnea x several days without focal infectious symptoms. HR 120s-130s while hospitalized and in a-flutter/a-fib. New diagnosis. CHADS-VASc score of 5. - TTE shows moderate MR and small organized anterior pericardial effusion - suspect valvular a-fib due to MR - Cardiology consulted - - Toprol XL increased to 50mg PO BID - Given single dose of digoxin 0.5mg PO on 10/19 - Started on Eliquis 2.5mg PO BID (age + CKD) - Discussed with Ewelina Purvis (daughter: [phone]) about risks/benefits of anti-coagulation in a patient with chronic anemia, recent fall and splenectomy, and overall bleeding risk (patient asked that resident speak to Sejal dumont to make a decision about this). Ewelina elected for patient to be started on Eliquis. - Discharged on Toprol and Eliquis as above with plan to f/u with cardiology Elevated Troponin; CAD (h/o CABG) H/o chest pain in the last several days, EKG showing possible inferolateral ST depressions, Troponin peaked at .748 on admission --> suspect demand ischemia vs true NSTEMI. - Cardiology consult as above - no ischemic evaluation recommended - continue Atorvastatin 80mg PO QAM - continue Metoprolol succinate as stated above - EKG repeated when HR controlled and ST/T changes remained, making cardiac ischemia/NSTEMI less likely Chronic Normocytic Anemia Hgb 7.6 on admission (baseline 8-9), but given weakness/SOB with new a-fib with RVR, suspect that to be major contributor of current symptoms, rather than anemia. - s/p 2 units pRBCs on admission, Hgb increased appropriately to 9.7 and remained stable thereafter - Chronic anemia is being worked up by Dr. Angel as an outpatient - continue outpatient weekly Epogen injections--given injection Thursday 10/19 as inpt Anterior Pericardial Effusion Organized effusion, new per imaging. May be minor contributor to a-fib with RVR. - No clinical signs of tamponade Right Upper Lobe Consolidation Per CTA chest on admission. No signs/symptoms of infection/PNA. Suspect atelectasis in setting of recent fall/trauma. - No abx as patient had no clinical signs of PNA Multiple Rib Fractures Secondary to trauma sustained in mid September 2020. - Lidoderm patch - Tylenol prn - b/l lower lung field atelectasis noted on chest ct - incentive spirometry - No issues with this during admission T2DM HbA1c was 6.5 on 09/2020, below goal given age and comorbidities. - sliding scale insulin in hospital - recommend consideration of discontinuing oral anti-glycemic given recent A1c being below goal; do not favor sulfonylurea use in the elderly CKD4 Cr at 1.4 on admission - Returned to baseline and remained stable QTc prolongation - Home sertraline continued with avoidance of other QT prolonging meds H/o Splenectomy Incision appeared to be well healing. Abdominal exam benign. Fluid collected noted in vicinity of spleen on A/P cat scan. Suspect post-operative fluid collection > developing abscess. BPH - continued home dose finasteride Anxiety/Depression - continued home dose sertraline as above Dispo: Home with family -- f/u with PCP and cardiology (2) Elevated troponin: (3) Multiple rib fractures: (4) Chronic kidney disease, stage 4 (severe): (5) Abnormal QT interval present on electrocardiogram: (6) Diabetes: (7) Coronary artery disease: (8) H/O splenectomy: (9) Tachycardia: (10) BPH (benign prostatic hyperplasia): Total Time Total Time Spent Total Time Spent (In Minutes): see attending attestation Discharge Plan Discharge Items Patient Disposition: Home - Home Health Services Reason For Visit: WEAKNESS Discharge Diagnosis: Afib with RVR Activity: Per Instructions section Non-emergency contact: Primary Care Provider and Dispatcher Chief [employer] Call non-emergency contact if: you have any medication questions and your symptoms worsen Follow-up/Referrals: Vinh Montano DO [Primary Care Provider] - (PLEASE CALL YOUR PRIMARY CARE PROVIDER TO SCHEDULE A DISCHARGE FOLLOW-UP APPOINTMENT WITHIN 7-10 DAYS.) Lucas Garvin DO [Dispatcher [employer]] - Diet: Carb Consistent or DM2 Addtl Attending Provider Instructions: You were admitted to [facility] for weakness and shortness of breath. While admitted you were found to be anemic and thus, were transfused with 2 units of red blood cells, which stabilized her hemoglobin. You were also found to be in atrial fibrillation. Cardiology was consulted and you were treated with an increase in your metoprolol to 50 mg twice daily and started on a blood thinner called Eliquis to avoid complications from blood clots. While you did remain in atrial fibrillation, the above medications were enough to control your heart rate. Per cardiology, no further recommendations were given. As such, we considered you to be stable for discharge. You will be sent home on the previously mentioned medications, which you will continue to take daily until otherwise instructed to do so by your primary care provider or landscaping crew leader. Please follow-up with your PCP and landscaping crew leader as scheduled for further management of your chronic conditions. If you develop any concerning symptoms please return to the hospital for further evaluation. Medication changes are as follow: - Increase metoprolol succinate to 50mg twice daily - Start taking Eliquis 2.5 mg twice daily -For now, stop taking daily aspirin please discuss this with your primary care provider or your landscaping crew leader at follow-up Pending Studies at Discharge: No Stand-Alone Forms: My [facility], Smoking Cessation Medications and DC Order Prescriptions: New Eliquis 2.5 mg Tablet 2.5 mg PO BID 30 Days Qty: 60 RF: 0 metoprolol succinate 50 mg Tablet Extended Release 24 Hr 50 mg PO BID 30 Days Qty: 60 RF: 0 Continued finasteride 5 mg tablet 5 mg PO HS Qty: 90 RF: 3 glipizide 5 mg tablet 10 mg PO QAM RF: 0 sertraline 100 mg tablet 100 mg PO QAM RF: 0 hydroxyzine HCl 10 mg tablet 10 mg PO DIRECTED PRN (Reason: panic attacks) RF: 0 tamsulosin 0.4 mg capsule 0.4 mg PO HS RF: 0 Anoro Ellipta 62.5-25 mcg/actuation blister with device 1 puffs INH QAM RF: 0 thiamine HCl (vitamin B1) [Vitamin B-1] 100 mg Tablet 100 mg PO QAM RF: 0 cyanocobalamin (vitamin B-12) [Vitamin B-12] 500 mcg Tablet 500 mcg PO QAM RF: 0 PreserVision AREDS [phone] Capsule 1 cap PO AMHS RF: 0 atorvastatin 80 mg Tablet 80 mg PO QAM RF: 0 pantoprazole 40 mg Tablet,Delayed Release (Dr/Ec) 40 mg PO QAM RF: 0 Myrbetriq 25 mg Tablet Extended Release 24 Hr 25 mg PO HS RF: 0 quetiapine [Seroquel] 25 mg Tablet 25 mg PO HS RF: 0 Discontinued aspirin 81 mg Tablet,Delayed Release (Dr/Ec) 81 mg PO QAM RF: 0 metoprolol succinate 25 mg tablet extended release 24 hr 12.5 mg PO HS RF: 0 Discharge Orders: Discharge Order (Routine); Ordered 10/20/20 Ordered By: Mati Hunter Admission Data Admit Date/Time: 10/17/20 19:38 Attending Provider: Corinne Sultana Admit Provider: Danuta Cristobal Primary Care Provider: Vinh Montano Other Providers: Navjot Hayes ; Lucas Garvin ; [facility] Other Interventions: Discharge Summary Assessment (RN) Last Done: 10/20/20 12:52 Supervising Physician Co-Signing Physician Notes Patient seen and examined with PGY-2 Dr. Deal. Agree with history, exam findings, assessment and plan of care as outlined. In brief, Mr. Fields is an 89 year old male with hx of CAD (S/p CABG in 2003), DM2, CKD Stage 4, anemia of chronic disease admitted with progressive weakness and dyspnea, found to be in afib with RVR. Today, feels a bit fatigued and is concerned about going home with feeling fatigued. No chest pain or dyspnea. Vital signs and nursing notes reviewed. Heart with irregularly irregular rhythm. Rate < 100 overnight. Labs and imaging reviewed. 1. Aflutter/afib with RVR. CHADS-VASC=5. Rate controlled. TTE with moderate MR. Toprolol XL to 50mg BID. Given oral loading dosing of dig 0.5mg yesterday. Started AC with Eliquis 2.5mg BID. Appreciate cardiology recommendations. 2. Elevated troponin. Demand ischemia (type 2) secondary to aflutter/afib with RVR and anemia. Continue home ASA and atorvastatin. 3. Anemia of chronic disease. Baseline hgb 8-9. S/p 2 units PRBCs on admission for hgb of 7.6. Goal hemoglobin > 9 per cardiology. Hgb today is 10.3. Followed by hematology as an outpatient. Continue weekly epogen. 4. DM2. Sliding scale insulin. 5. CKD. Stable. 6. QTc prolongation. Avoid QT prolonging medications. Dispo: discharge home today with with home health. Follow up with PCP in 7- 10days. I personally spent 25 minutes discharge planning for this patient. Resident Activity Tracking Resident Involvement: Resident Care Provided Care Provided: Adult Hospital Medicine
--- NOTE | 2020-10-20 15:19 | Electrocardiogram Report ---
Test Reason : Blood Pressure : / mmHG Vent. Rate : 094 BPM Atrial Rate : 258 BPM P-R Int : 000 ms QRS Dur : 110 ms QT Int : 364 ms P-R-T Axes : 000 033 251 degrees QTc Int : 455 ms Atrial flutter with variable A-V block Abnormal ECG Confirmed by Krystian Bryant ([id number]) on 10/20/2020 3:18:28 PM Referred By: REFERRED SELF Confirmed By:Lui Bryant
--- NOTE | 2020-10-30 14:46 | Coding Query ---
CODING QUERY To promote full compliance with coding requirements relating to patient care, provider participation is requested in all cases of systems librarian uncertainty. Please assist us with the question(s) below: Coding Question(s): There is documentation of elevated troponin and Progress Note beginning on 10/18 and through and including the Discharge Summary document, "Elevated Troponin; CAD (h/o CABG) H/o chest pain in the last several days, EKG showing possible inferolateral ST depressions, Troponin peaked at .748 on admission --> suspect demand ischemia vs true NSTEMI", and under the Supervision Physician area, there is documentation of, "Elevated troponin. Demand ischemia (type 2) secondary to aflutter/afib with RVR and anemia". It is not clear, if this is Demand Ischemia, Type 2 GA, Due to Demand Ischemia, or NSTEMI. Please specify below, in your clinical opinion. ( x ) Type 2 GA due to Demand Ischemia ( ) NSTEMI ( ) Demand Ischemia ( ) Other: Please Specify Physician's Response(s): Thank you Lucía Mendiola Principal Diagnosis: "that condition established after study, to be chiefly responsible for occasioning the admission of the patient to the hospital for care." Co-Existing Principal Diagnosis: "when two or more diagnoses equally meet the criteria for principal diagnosis as determined by the circumstances of admission, diagnostic work up, and/or therapy provided, and the Alphabetic Index, Tabular List, or another coding guideline does not provide sequencing direction, any one of the diagnoses may be sequenced first." "When the physician has documented what appears to be a current diagnosis in the body of the record, but has not included the diagnosis in the final diagnostic statement, the physician should be asked whether the diagnosis should be added." (Source Coding [facility] 2 QTR90. p3-4) SUSANNA
== END 2020-10-20 13:45 | disposition home health service (06) | DRG 281 ==
LOC: ED 16:55 → SUATTDRO 19:38 → 2N 19:38

== ENCOUNTER 2020-11-27 13:52 | Inpatient (IN) ==
[2020-11-27] MEDS ORDERED: ONDANSETRON INJ 2 MG/ML 2 ML VIAL IV STA (14:01)
[2020-11-27] MEDS ORDERED: fentaNYL citrate 100 MCG/2 ML VIAL IV PRN (14:01)
[2020-11-27] MEDS ORDERED: SODIUM CHLORIDE 0.9% 500 ML IV SCH (14:15)
--- NOTE | 2020-11-27 14:27 | Emergency Department Note ---
Impression & Plan Fall, Chest wall contusion, Lumbar contusion, Head injury, Pleural effusion ED Provider Note NAME: JOSTIN MAY AGE: 89 SEX: M : 1930 ARRIVES VIA: Ambulance INFORMANT: Patient, ED PROVIDER(S): Leland Merchant DO CHIEF COMPLAINT: Back pain HPI: The patient is an 89-year-old male who presented to the emergency department for evaluation of back pain. The patient had a fall while he was opening up a garage door. The patient fell very hard and had to come in by ambulance. The patient complained of very severe back pain. He was unable to stand due to back pain. The patient does have a history of a fibrillation and states that he takes blood thinners but he does not know which one. The patient states he also has chest pain and abdominal pain. He did strike his head. He is unsure if he had a loss of consciousness. The patient denies having any shoulder pain. He has no hip pain. He denies having any fever or recent illnesses. He states his pain is moderate to severe and worsens with trying to sit forward or walk. ROS: See above HPI for pertinent positives & negatives. A total of 10 systems reviewed and were otherwise negative. PAST MEDICAL HISTORY: See Below PAST SURGICAL HISTORY: See Below FAMILY HISTORY: See Below SOCIAL HISTORY: See Below HOME MEDICATIONS: See Below ALLERGIES: See Below VITALS: See Below PHYSICAL EXAMINATION: GENERAL: The patient is awake and alert. He is somewhat anxious appearing and appears to be uncomfortable. EYES: The conjunctivae are clear. The pupils are round and reactive. EARS, NOSE, MOUTH AND THROAT: The nose is without any evidence of any deformity. NECK: The neck is nontender and supple. RESPIRATORY: Normal respiratory effort is noted there is no evidence of wheezing rhonchi or rales CARDIOVASCULAR: Irregular rhythm was noted to auscultation. There is no definite murmur. GASTROINTESTINAL: The abdomen is soft. Abdomen is nontender. BACK: There was no mid line tenderness appreciated in the thoracic spine. There was tenderness over the lower lumbar spine. Range of motion does elicit significant pain. MUSCULOSKELETAL/EXTREMITIES: There is no evidence of gross deformity full range of motion is noted in the hips and shoulders. There was palpable tenderness over the right lateral chest wall in the left upper quadrant the abdomen. SKIN: Pedal edema was noted bilaterally. Skin was warm and dry. NEUROLOGIC: Patient is awake alert and oriented x3. MEDICAL DECISION MAKING: The patient is an 89-year-old man who presented to the emergency department for an evaluation after a fall. The patient lives by himself. He was recently discharged from inpatient rehab but the patient does not appear to be doing well at home. He did have a fall and was unable to ambulate. The patient was treated with medication for pain. I discussed the patient's laboratory and radiographic studies with him. No significant intra-abdominal or intrathoracic trauma was noted on CT. He does have previous rib fractures. The patient was not able to ambulate well because of pain. I discussed his condition with the on-call [facility]. The patient may require another stay in inpatient rehab or possibly a more supervised situation. Triage Nursing notes reviewed. Prior medical records reviewed Vital Signs: reviewed and remarkable for no significant abnormalities Differential diagnosis: Fracture, dislocation, contusion, intra-abdominal, pneumothorax, intrathoracic, intracranial, neurologic, compartment syndrome, rhabdomyolysis, as well as other pathologies. ER treatment provided: See below Diagnostics interpreted by me: ECG: EKG was obtained in the emergency department. My interpretation is atrial fibrillation at [address]pm[address] Inferior and lateral ST depressions with T wave inversions were noted. Poor R wave progression was noted. Anterior Q waves were noted. This was compared to a tracing from October 192020. No significant changes were noted. Cardiac Monitoring: An order was placed for continuous cardiac monitoring. The monitor shows a rate of 84 bpm with sinus rhythm. Laboratory studies: As stated above and show below. Imaging studies: See below Consultation(s): [id number]: I discussed this case with Destin who is on for the [facility]ist group. They will evaluate the patient in the emergency department. 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, stage 4 (severe) Confusion COPD (chronic obstructive pulmonary disease) COVID-19 04/2020 Elevated troponin Fall Gastric ulcer Gastritis and duodenitis Hematuria History of acute renal failure KIDNEY STONE BLOCKAGE 2 YR AGO/NO PROBLEMS SINCE History of kidney stones Hx of neck injury HX BROKEN NECK, 1 ST AND SECOND VERTEBRAE - 2 YRS AGO Hx of seasonal allergies Hydronephrosis Hyperlipidemia Hypertension Multiple rib fractures Pleural effusion Renal colic Restless leg syndrome Weakness Weakness Surgical History Hx of appendectomy Hx of cardiac catheterization BEFORE BYPASS SURGERY/BLOCKAGES Hx of colonoscopy 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 Family History Other Hypertension Social History Smoking Status: Never smoker Tobacco Type: Cigarettes Second Hand Exposure: No; Hx Alcohol Use: No Hx Substance Use: No Preferred Language: Vietnamese Communication Ability: Effective Foreign Policy Officer Required: No Beliefs That Will Affect Care: None marital status: / Current Living Situation: Family Current Living Situation Comment: Lives with his daughter and his daughters boyfriend Feels Safe at Home: Yes Assistive Devices: Hearing Aid - Right and Walker Allergies Allergies Allergy/AdvReac Type Severity Reaction Status Date / Time cefuroxime Allergy Intermediate Hives Verified 11/27/20 16:22 Penicillins Allergy Mild Hives Verified 11/27/20 16:22 olanzapine AdvReac Intermediate Hallucinations, Verified 11/27/20 16:22 confusion and panic Home Meds Home Medications Medication Instructions Recorded Confirmed atorvastatin 80 mg tablet 80 mg PO QAM 01/29/18 11/27/20 mirabegron 25 mg tablet,extended 25 mg PO HS 01/29/18 11/27/20 release 24 hr (Myrbetriq) pantoprazole 40 mg tablet,delayed 40 mg PO DAILYBB 01/29/18 11/27/20 release glipizide 5 mg tablet 10 mg PO QAM 03/28/20 11/27/20 hydroxyzine HCl 10 mg tablet 10 mg PO DIRECTED PRN 03/28/20 11/27/20 sertraline 100 mg tablet 100 mg PO QAM 03/28/20 11/27/20 cyanocobalamin (vitamin B-12) 500 500 mcg PO QAM 04/20/20 11/27/20 mcg tablet (Vitamin B-12) tamsulosin 0.4 mg capsule 0.4 mg PO HS 04/20/20 11/27/20 thiamine HCl (vitamin B1) 100 mg 100 mg PO QAM 04/20/20 11/27/20 tablet (Vitamin B-1) umeclidinium 62.5 mcg-vilanterol 1 puffs INH QAM 04/20/20 11/27/20 25 mcg/actuation powdr for inhalation (Anoro Ellipta) vitamins A,C,L-wljd-mrncua 14,320 1 cap PO AMHS 04/20/20 11/27/20 unit-226 mg-200 unit capsule (PreserVision AREDS) quetiapine 25 mg tablet (Seroquel) 25 mg PO HS 08/17/20 11/27/20 metoprolol succinate 50 mg 50 mg PO BID 11/10/20 11/27/20 tablet,extended release 24 hr apixaban 2.5 mg tablet (Eliquis) 2.5 mg PO BID 11/27/20 11/27/20 Previous Rx's Medication Instructions Recorded finasteride 5 mg tablet 5 mg PO HS #90 tab 03/19/19 Results & Data (ED) Vital Signs Vital Signs - 24 hr 11/27/20 14:01 11/27/20 16:00 11/27/20 18:00 Temperature 36.7 C 36.7 C 37.8 C H Temperature Source Oral Oral Oral Pulse Rate 90 Pulse Rate [Finger] 74 67 Pulse Rhythm [Finger] Regular Respiratory Rate 18 17 18 Blood Pressure 141/77 H Blood Pressure [Left Arm] 122/77 128/82 Blood Pressure Mean 98 Blood Pressure Mean [Left Arm] 92 97 Pulse Oximetry 98 96 96 Oxygen Delivery Method Room Air Room Air Room Air Sepsis Recent Fever Within 48 Hours No Sepsis New/Unexplained Change in Mental Status No Sepsis Action Taken by Nursing No Action Required 11/27/20 20:00 Temperature 36.7 C Temperature Source Oral Pulse Rate Pulse Rate [Finger] 84 Pulse Rhythm [Finger] Regular Respiratory Rate 18 Blood Pressure Blood Pressure [Left Arm] 134/94 Blood Pressure Mean Blood Pressure Mean [Left Arm] 107 Pulse Oximetry 98 Oxygen Delivery Method Room Air Sepsis Recent Fever Within 48 Hours Sepsis New/Unexplained Change in Mental Status Sepsis Action Taken by Long Term Medications Current Medication List: was personally reviewed by me Laboratory Data Attestation: I reviewed the patient's lab results. Result diagrams: 11/27/20 14:20 11/27/20 14:20 Lab Results 11/27/20 11/27/20 11/27/20 Range/Units 14:20 14:20 14:20 WBC 10.61 (4.8-10.8) K/uL RBC 3.22 L (4.7-6.1) M/uL Hgb 9.7 L (14.0-18.0) g/dL Hct 30.1 L (42-52) % MCV 93.5 (80-100) fL MCH 30.1 (25-34) pg MCHC 32.2 (32-36) g/dL RDW Std Deviation 52.4 H (36.4-46.3) fL RDW Coeff of Leeanna 15.9 H (11.5-14.5) % Plt Count 112 L (130-400) K/uL Absolute Nucleated RBC 9.63 H (0-0) K/uL Nucleated RBC % (auto) 90.8 % Neutrophils % (Manual) 72.3 % Band Neutrophils % 0.0 % Lymphocytes % (Manual) 13.3 % Prolymphocyte % 0.0 % Reactive Lymphs % (Man) 0.0 % Monocytes % (Manual) 10.8 % Eosinophils % (Manual) 2.4 % Blast Cells % (Manual) 1.2 % Plasma Cell % (Manual) 0.0 % Neutrophils # (Manual) 7.67 H (1.4-6.5) K/uL Total Absolute Neuts 7.67 H (1.4-6.5) K/uL Lymphocytes # (Manual) 1.41 (1.2-3.4) K/uL Total Abs Lymphocytes 1.41 (1.2-3.4) K/uL Monocytes # (Manual) 1.15 H (0.11-0.59) K/uL Eosinophils # (Manual) 0.25 (0-0.5) K/uL Blast Cells # (Man) 0.13 H (0-0) K/uL Large Granular Lymphs 0.0 % Platelet Estimate Normal (Normal) Polychromasia 1+ Echinocytes 1+ Acanthocytes (Spur) 1+ PT 12.4 H (9.0-12.0) Seconds INR 1.2 H (0.9-1.1) APTT 28.4 (21.0-31.0) Seconds PTT Ratio 1.1 Sodium 135 L (136-145) mmol/L Potassium 4.3 (3.5-5.1) mmol/L Chloride 103 (98-107) mmol/L Carbon Dioxide 23 (21-32) mmol/L Anion Gap 9.0 (3-11) BUN 32 H (7-18) mg/dl Creatinine 1.32 (0.6-1.4) mg/dl Est Cr Clr Drug Dosing 38.3 ml/min Est GFR ( Amer) 55.4 ml/min Est GFR (Non-Af Amer) 47.8 ml/min BUN/Creatinine Ratio 24.0 H (10-20) Glucose 235 H (70-99) mg/dl Calcium 9.0 (8.5-10.1) mg/dl Total Bilirubin 0.6 (0.2-1) mg/dl AST 31 (15-37) U/L ALT 35 (12-78) U/L Alkaline Phosphatase 105 (45-117) U/L Total Creatine Kinase 35 L (39-308) U/L Troponin I < 0.015 (0-0.045) ng/ml Total Protein 6.4 (6.4-8.2) gm/dl Albumin 2.5 L (3.4-5.0) gm/dl Globulin 3.9 (2.5-4.0) gm/dl Albumin/Globulin Ratio 0.6 L (0.9-2) COVID-19 Eval Order 11/27/20 Range/Units 17:50 WBC (4.8-10.8) K/uL RBC (4.7-6.1) M/uL Hgb (14.0-18.0) g/dL Hct (42-52) % MCV (80-100) fL MCH (25-34) pg MCHC (32-36) g/dL RDW Std Deviation (36.4-46.3) fL RDW Coeff of Leeanna (11.5-14.5) % Plt Count (130-400) K/uL Absolute Nucleated RBC (0-0) K/uL Nucleated RBC % (auto) % Neutrophils % (Manual) % Band Neutrophils % % Lymphocytes % (Manual) % Prolymphocyte % % Reactive Lymphs % (Man) % Monocytes % (Manual) % Eosinophils % (Manual) % Blast Cells % (Manual) % Plasma Cell % (Manual) % Neutrophils # (Manual) (1.4-6.5) K/uL Total Absolute Neuts (1.4-6.5) K/uL Lymphocytes # (Manual) (1.2-3.4) K/uL Total Abs Lymphocytes (1.2-3.4) K/uL Monocytes # (Manual) (0.11-0.59) K/uL Eosinophils # (Manual) (0-0.5) K/uL Blast Cells # (Man) (0-0) K/uL Large Granular Lymphs % Platelet Estimate (Normal) Polychromasia Echinocytes Acanthocytes (Spur) PT (9.0-12.0) Seconds INR (0.9-1.1) APTT (21.0-31.0) Seconds PTT Ratio Sodium (136-145) mmol/L Potassium (3.5-5.1) mmol/L Chloride (98-107) mmol/L Carbon Dioxide (21-32) mmol/L Anion Gap (3-11) BUN (7-18) mg/dl Creatinine (0.6-1.4) mg/dl Est Cr Clr Drug Dosing ml/min Est GFR ( Amer) ml/min Est GFR (Non-Af Amer) ml/min BUN/Creatinine Ratio (10-20) Glucose (70-99) mg/dl Calcium (8.5-10.1) mg/dl Total Bilirubin (0.2-1) mg/dl AST (15-37) U/L ALT (12-78) U/L Alkaline Phosphatase (45-117) U/L Total Creatine Kinase (39-308) U/L Troponin I (0-0.045) ng/ml Total Protein (6.4-8.2) gm/dl Albumin (3.4-5.0) gm/dl Globulin (2.5-4.0) gm/dl Albumin/Globulin Ratio (0.9-2) COVID-19 Eval Order Covid19 at [facility] Administered Medications Discontinued Medications Acetaminophen (Acetaminophen 325 Mg Tab) 650 mg PO NOW STA Stop: 11/27/20 17:56 Last Admin: 11/27/20 18:02 Dose: 650 mg Documented by: [id number] Fentanyl Citrate (Fentanyl Citrate 100 Mcg/2 Ml Vial) 50 mcg IV ONE PRN PRN Reason: Pain Last Admin: 11/27/20 14:24 Dose: 50 mcg Documented by: [id number] Sodium Chloride (Nss) 500 mls @ 999 mls/hr IV .Q31M BEBA Stop: 11/27/20 14:45 Last Infusion: 11/27/20 15:41 Dose: 0 mls/hr Documented by: [id number] Admin: 11/27/20 14:24 Dose: 999 mls/hr Documented by: [id number] Morphine Sulfate (Morphine Sulfate 2 Mg/Ml Carp) 2 mg IV NOW STA Stop: 11/27/20 17:56 Last Admin: 11/27/20 18:02 Dose: 2 mg Documented by: [id number] Ondansetron HCl (Ondansetron Inj 2 Mg/Ml 2 Ml Vial) 4 mg IV NOW STA Stop: 11/27/20 14:02 Last Admin: 11/27/20 14:24 Dose: 4 mg Documented by: [id number] Imaging Data Radiologist's Impression: Abdomen/Pelvis CT 11/27/20 14:01 CT OF THE ABDOMEN AND PELVIS WITH CONTRAST CLINICAL HISTORY: Trauma. COMPARISON STUDY: CT of the abdomen and pelvis October 17, 2020. TECHNIQUE: Following IV administration of 94 mL of Optiray, axial images of the abdomen and pelvis were obtained from the lung bases to the proximal femurs. Images were reviewed in the axial, sagittal, and coronal planes. IV contrast was administered without complication. Automated exposure control was utilized for the study. A dose lowering technique was utilized adhering to the principles of ALARA. CT DOSE: 1663.91 mGy.cm FINDINGS: Please note that the chest CT will be reported separately. Healing left-sided rib fractures are again noted. These were shown on prior CT. Bilateral pleural effusions are better depicted on that exam. No hemoperitoneum or pneumoperitoneum is present. Enhancement of the liver is heterogeneous. There is no evidence for traumatic injury to the liver, adrenal glands, kidneys or pancreas. There is a right renal cyst. The spleen is not visualized. The caliber and wall thickness of small and large bowel are normal. There is colonic diverticulosis without evidence for acute diverticulitis. No acute lumbar spine or pelvic fracture is noted. Old L1 compression deformity is unchanged. There is extensive plaque of the abdominal aorta. Bladder wall thickening is unchanged. This is likely chronic. Bilateral renal calculi are noted. There are no ureteral calculi. There is no hydronephrosis. IMPRESSION: 1. No acute traumatic findings within the abdomen or pelvis. 2. Bilateral pleural effusions, better depicted on the chest CT which will be reported separately. 3. Multiple healing left-sided rib fractures. ACT 112: Negative or not required by law. Electronically signed by: Jabari Urias M.D. 11/27/2020 4:[address] 11/27/20 14:01 CT OF THE CERVICAL SPINE CLINICAL HISTORY: tramua COMPARISON STUDY: No previous studies for comparison. CT DOSE: TECHNIQUE: CT scan of the cervical spine was performed from the skull base to the thoracic inlet. Images are reviewed in the axial, sagittal, and coronal planes. IV contrast was not administered for this examination. A dose lowering technique was utilized adhering to the principles of ALARA. FINDINGS: The visualized portions of the lung apices reveal no evidence of pneumothorax. Interval development of septal thickening and nodularity within the right apex. The prevertebral soft tissues are normal. Chronic appearing fracture of the right facet of C1 is unchanged since prior. There is chronic unfused type II fracture of the odontoid process of C2 without displacement, unchanged since prior study performed on September 23, 2020. No new/acute fracture or dislocation seen. Previously seen severe degenerative changes of the C1 articulation with partial bony fusion is again seen, stable since prior. There is unchanged alignment of the occipital atlantal articulation. Severe multilevel intervertebral disc space narrowing and fusion throughout cervical spine with severe facet arthrosis is again seen throughout cervical spine. Stable mild anterolisthesis of C4 on C5 and C5 on C6 is again seen and unchanged since prior. There is possible central canal narrowing is seen at the C6-7 level. Multilevel neural foraminal stenosis stenosis is again seen bilaterally. IMPRESSION: 1. No acute fracture. Chronic unfused type II fracture of odontoid process of C2 without displacement. Findings are unchanged since prior. 2. Chronic fracture deformity of the right facet of C1, stable since prior. 3. Severe multilevel degenerative changes of the spine associated with multiple areas of ankylosis and severe degenerative changes as detailed above. Evaluation of the central canal and neuroforamina are better with MR. 4. The rest of findings as above. ACT 112: Negative or not required by law. The above report was generated using voice recognition software. It may contain grammatical, syntax or spelling errors. Electronically signed by: Makayla Parish DO 11/27/2020 4:[address] 11/27/20 14:01 CT chest diagnostic w con INDICATION: Fall from standing,. TECHNIQUE: Multidetector row helical CT of the chest was performed. Coronal and sagittal reformations were obtained. Automated dose lowering techniques and/or adjustment according to patient size were utilized for this exam. Comparison: Comparison is made to CT abdomen and pelvis 10/17/2020 and CTA chest 10/17/2020 FINDINGS: Lungs and pleura: Moderate bilateral pleural effusions are seen. There are scattered groundglass opacities most prominent in the upper lobes. Bilateral lower lobe atelectasis is seen. Heart and pericardium: Cardiomegaly is seen with biatrial enlargement. Vessels: Severe atherosclerotic changes in the aorta and coronary arteries. No pulmonary embolism is seen. Reflux of contrast into the IVC is noted. Mediastinum and linda: Unremarkable. Chest wall and lower neck: Unremarkable. Abdomen: For findings below the diaphragm, please refer to CT of the abdomen dated the same. Bones: Old partially healed rib fractures of the left 11th and 12th ribs are see n with bony bridging consistent with callus formation. No evidence of acute fracture the thoracic spine. Partial visualization is chronic anterior compression deformity of L1 which is better appreciated and CT abdomen pelvis performed same day. IMPRESSION: 1. Interval enlargement of right pleural effusion with redemonstration of moderate to large left effusion. Scattered groundglass opacities may represent infectious/inflammatory process. 2. No evidence of acute fracture. 3. Findings compatible with heart failure. ACT 112: Negative or not required by law. Electronically signed by: Ag Bradshaw M.D. 11/27/2020 4:[address] 11/27/20 14:01 CT head/brain wo con CLINICAL HISTORY: trauma COMPARISON STUDY: September 23, 2020 TECHNIQUE: Axial CT of the brain is performed from the vertex to the skull base. IV contrast was not administered for this examination. A dose lowering technique was utilized adhering to the principles of ALARA. CT DOSE: FINDINGS: No intra or extra-axial mass lesions are visualized. There is no CT evidence of acute cortical infarction. There is no evidence of midline shift. There is no acute hemorrhage. No acute depressed calvarial fractures are visualized. There are patchy white matter hypodensities likely on a small vessel basis. Redemonstration of mild diffuse atrophic changes of brain parenchyma associated with ex vacuo dilatation, stable since prior. Redemonstration of the mild mucosal thickening of visualized portion of the r ight and left maxillary sinuses. The rest of paranasal sinuses and mastoid air cells are patent and well-aerated. IMPRESSION: No acute intracranial hemorrhage, no midline shift or space occupying lesions. Atrophic changes of brain parenchyma and ex vacuo dilatation of ventricles, unchanged since prior. Possible sinusitis involving maxillary sinuses. ACT 112: Negative or not required by law. The above report was generated using voice recognition software. It may contain grammatical, syntax or spelling errors. Electronically signed by: Makayla Parish DO 11/27/2020 4:01 PM Discharge Plan Visit Data Chief Complaint: Fall Stated Complaint: Fall ED Provider: Leland Merchant Discharge Problem: Fall, Chest wall contusion, Lumbar contusion, Head injury, Pleural effusion Patient Disposition: Being Evaluated by Hospitalist Condition: Good Forms Stand Alone Forms: [facility] Prescriptions Prescriptions: No Action finasteride 5 mg tablet 5 mg PO HS Qty: 90 RF: 3 glipizide 5 mg tablet 10 mg PO QAM RF: 0 sertraline 100 mg tablet 100 mg PO QAM RF: 0 hydroxyzine HCl 10 mg tablet 10 mg PO DIRECTED PRN (Reason: panic attacks) RF: 0 tamsulosin 0.4 mg capsule 0.4 mg PO HS RF: 0 Anoro Ellipta 62.5-25 mcg/actuation blister with device 1 puffs INH QAM RF: 0 thiamine HCl (vitamin B1) [Vitamin B-1] 100 mg Tablet 100 mg PO QAM RF: 0 cyanocobalamin (vitamin B-12) [Vitamin B-12] 500 mcg Tablet 500 mcg PO QAM RF: 0 PreserVision AREDS [id number] Capsule 1 cap PO AMHS RF: 0 atorvastatin 80 mg Tablet 80 mg PO QAM RF: 0 pantoprazole 40 mg Tablet,Delayed Release (Dr/Ec) 40 mg PO DAILYBB RF: 0 Myrbetriq 25 mg Tablet Extended Release 24 Hr 25 mg PO HS RF: 0 quetiapine [Seroquel] 25 mg Tablet 25 mg PO HS RF: 0 Eliquis 2.5 mg tablet 2.5 mg PO BID RF: 0 metoprolol succinate 50 mg tablet extended release 24 hr 50 mg PO BID RF: 0 Referrals Referrals: Vinh Montano DO [Primary Care Provider] -
[2020-11-27 14:32] LABS: Mean Corpuscular Hgb Conc 32.2 g/dL (32-36)
[2020-11-27 14:47] LABS: INR 1.2 (0.9-1.1); Partial Thromboplastin Ratio 1.1; Partial Thromboplastin Time 28.4 Seconds (21.0-31.0); Prothrombin Time 12.4 Seconds (9.0-12.0)
[2020-11-27 14:54] LABS: Hematocrit (blood only) 30.1 % (42-52); Hemoglobin 9.7 g/dL (14.0-18.0); Mean Corpuscular Hemoglobin 30.1 pg (25-34); Mean Corpuscular Volume 93.5 fL (80-100); Nucleated RBC # (auto) 9.63 K/uL (0-0); Nucleated RBC % (auto) 90.8 %; Platelet Count 112 K/uL (130-400); RDW Coefficient of Variation 15.9 % (11.5-14.5); RDW Standard Deviation 52.4 fL (36.4-46.3); Red Blood Count 3.22 M/uL (4.7-6.1); White Blood Count 10.61 K/uL (4.8-10.8)
[2020-11-27 14:57] LABS: Alanine Aminotransferase 35 U/L (12-78); Albumin Level 2.5 gm/dl (3.4-5.0); Aspartate Aminotransferase 31 U/L (15-37); Blood Urea Nitrogen 32 mg/dl (7-18); Carbon Dioxide 23 mmol/L (21-32); Chloride 103 mmol/L (98-107); Creatinine Clr Calc Pharmacy 38.3 ml/min; Est GFR (African American) 55.4 ml/min; Est GFR (Non-African American) 47.8 ml/min; Glucose 235 mg/dl (70-99); Potassium 4.3 mmol/L (3.5-5.1); Sodium 135 mmol/L (136-145)
[2020-11-27 14:58] LABS: Acanthocytes 1+; Echinocytes 1+; Platelet Estimate Normal (Normal); Polychromasia 1+
[2020-11-27 14:59] LABS: ALC (manual) 1.41 K/uL (1.2-3.4); ANC (manual) 7.67 K/uL (1.4-6.5); Blast # (manual) 0.13 K/uL (0-0); Blast Cells % (manual) 1.2 %; Eosinophils # (manual) 0.25 K/uL (0-0.5); Eosinophils % (manual) 2.4 %; Lymphocytes # (manual) 1.41 K/uL (1.2-3.4); Lymphocytes % (manual) 13.3 %; Monocytes # (manual) 1.15 K/uL (0.11-0.59); Monocytes % (manual) 10.8 %; Neutrophils # (manual) 7.67 K/uL (1.4-6.5); Neutrophils % (manual) 72.3 %
[2020-11-27 15:01] LABS: Albumin Globulin Ratio 0.6 (0.9-2); Alkaline Phosphatase 105 U/L (45-117); Bilirubin,Total 0.6 mg/dl (0.2-1); Creatine Kinase 35 U/L (39-308); Globulin 3.9 gm/dl (2.5-4.0); Total Protein 6.4 gm/dl (6.4-8.2); Troponin I < 0.015 ng/ml (0-0.045)
--- NOTE | 2020-11-27 16:03 | CT Scan Report ---
CT head/brain wo con CLINICAL HISTORY: trauma COMPARISON STUDY: September 23, 2020 TECHNIQUE: Axial CT of the brain is performed from the vertex to the skull base. IV contrast was not administered for this examination. A dose lowering technique was utilized adhering to the principles of ALARA. CT DOSE: FINDINGS: No intra or extra-axial mass lesions are visualized. There is no CT evidence of acute cortical infarc tion. There is no evidence of midline shift. There is no acute hemorrhage. No acute depressed calvar ial fractures are visualized. There are patchy white matter hypodensities likely on a small vessel basis. Redemonstration of mild diffuse atrophic changes of brain parenchyma associated with ex vacuo dilatat ion, stable since prior. Redemonstration of the mild mucosal thickening of visualized portion of the right and left maxillary sinuses. The rest of paranasal sinuses and mastoid air cells are patent and well-aerated. IMPRESSION: No acute intracranial hemorrhage, no midline shift or space occupying lesions. Atrophic changes of brain parenchyma and ex vacuo dilatation of ventricles, unchanged since prior. Po ssible sinusitis involving maxillary sinuses. ACT 112: Negative or not required by law. The above report was generated using voice recognition software. It may contain grammatical, syntax o r spelling errors. Electronically signed by: Makayla Parish DO 11/27/2020 4:01 PM
--- NOTE | 2020-11-27 16:18 | CT Scan Report ---
CT OF THE ABDOMEN AND PELVIS WITH CONTRAST CLINICAL HISTORY: Trauma. COMPARISON STUDY: CT of the abdomen and pelvis October 17, 2020. TECHNIQUE: Following IV administration of 94 mL of Optiray, axial images of the abdomen and pelvis we re obtained from the lung bases to the proximal femurs. Images were reviewed in the axial, sagittal, and coronal planes. IV contrast was administered without complication. Automated exposure control wa s utilized for the study. A dose lowering technique was utilized adhering to the principles of ALARA . CT DOSE: 1663.91 mGy.cm FINDINGS: Please note that the chest CT will be reported separately. Healing left-sided rib fractures are again noted. These were shown on prior CT. Bilateral pleural effusions are better depicted on th at exam. No hemoperitoneum or pneumoperitoneum is present. Enhancement of the liver is heterogeneous. There is no evidence for traumatic injury to the liver, adrenal glands, kidneys or pancreas. There i s a right renal cyst. The spleen is not visualized. The caliber and wall thickness of small and large bowel are normal. There is colonic diverticulosis without evidence for acute diverticulitis. No acut e lumbar spine or pelvic fracture is noted. Old L1 compression deformity is unchanged. There is exten sive plaque of the abdominal aorta. Bladder wall thickening is unchanged. This is likely chronic. Randell ateral renal calculi are noted. There are no ureteral calculi. There is no hydronephrosis. IMPRESSION: 1. No acute traumatic findings within the abdomen or pelvis. 2. Bilateral pleural effusions, better depicted on the chest CT which will be reported separately. 3. Multiple healing left-sided rib fractures. ACT 112: Negative or not required by law. Electronically signed by: Jabari Urias M.D. 11/27/2020 4:17 PM
--- NOTE | 2020-11-27 16:19 | Electrocardiogram Report ---
Test Reason : Blood Pressure : / mmHG Vent. Rate : 109 BPM Atrial Rate : 102 BPM P-R Int : 000 ms QRS Dur : 102 ms QT Int : 304 ms P-R-T Axes : 000 051 267 degrees QTc Int : 409 ms Atrial fibrillation with rapid ventricular response Septal infarct , age undetermined Abnormal ECG When compared with ECG of 19-OCT-2020 17:36, Atrial fibrillation has replaced Atrial flutter Nonspecific T wave abnormality now evident in Anterior leads Confirmed by Leland Wallis ([id number]) on 11/27/2020 4:19:19 PM Referred By: REFERRED SELF Confirmed By:Leland Wallis
--- NOTE | 2020-11-27 16:20 | CT Scan Report ---
CT chest diagnostic w con INDICATION: Fall from standing,. TECHNIQUE: Multidetector row helical CT of the chest was performed. Coronal and sagittal reformations were obtained. Automated dose lowering techniques and/or adjustment according to patient size were u tilized for this exam. Comparison: Comparison is made to CT abdomen and pelvis 10/17/2020 and CTA chest 10/17/2020 FINDINGS: Lungs and pleura: Moderate bilateral pleural effusions are seen. There are scattered groundglass opac ities most prominent in the upper lobes. Bilateral lower lobe atelectasis is seen. Heart and pericardium: Cardiomegaly is seen with biatrial enlargement. Vessels: Severe atherosclerotic changes in the aorta and coronary arteries. No pulmonary embolism is seen. Reflux of contrast into the IVC is noted. Mediastinum and linda: Unremarkable. Chest wall and lower neck: Unremarkable. Abdomen: For findings below the diaphragm, please refer to CT of the abdomen dated the same. Bones: Old partially healed rib fractures of the left 11th and 12th ribs are seen with bony bridging consistent with callus formation. No evidence of acute fracture the thoracic spine. Partial visualiza tion is chronic anterior compression deformity of L1 which is better appreciated and CT abdomen pelvi s performed same day. IMPRESSION: 1. Interval enlargement of right pleural effusion with redemonstration of moderate to large left eff usion. Scattered groundglass opacities may represent infectious/inflammatory process. 2. No evidence of acute fracture. 3. Findings compatible with heart failure. ACT 112: Negative or not required by law. Electronically signed by: Ag Bradshaw M.D. 11/27/2020 4:19 PM
--- NOTE | 2020-11-27 16:21 | CT Scan Report ---
CT OF THE CERVICAL SPINE CLINICAL HISTORY: tramua COMPARISON STUDY: No previous studies for comparison. CT DOSE: TECHNIQUE: CT scan of the cervical spine was performed from the skull base to the thoracic inlet. Kathy ges are reviewed in the axial, sagittal, and coronal planes. IV contrast was not administered for thi s examination. A dose lowering technique was utilized adhering to the principles of ALARA. FINDINGS: The visualized portions of the lung apices reveal no evidence of pneumothorax. Interval development o f septal thickening and nodularity within the right apex. The prevertebral soft tissues are normal. Chronic appearing fracture of the right facet of C1 is unchanged since prior. There is chronic unfused type II fracture of the odontoid process of C2 without displacement, unchang ed since prior study performed on September 23, 2020. No new/acute fracture or dislocation seen. Previously seen severe degenerative changes of the C1 articulation with partial bony fusion is again seen, stable since prior. There is unchanged alignment of the occipital atlantal articulation. Severe multilevel intervertebral disc space narrowing and fusion throughout cervical spine with sever e facet arthrosis is again seen throughout cervical spine. Stable mild anterolisthesis of C4 on C5 an d C5 on C6 is again seen and unchanged since prior. There is possible central canal narrowing is seen at the C6-7 level. Multilevel neural foraminal sten osis stenosis is again seen bilaterally. IMPRESSION: 1. No acute fracture. Chronic unfused type II fracture of odontoid process of C2 without displacemen t. Findings are unchanged since prior. 2. Chronic fracture deformity of the right facet of C1, stable since prior. 3. 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 Evaluation of the central canal and neuroforamina a re better with MR. 4. The rest of findings as above. ACT 112: Negative or not required by law. The above report was generated using voice recognition software. It may contain grammatical, syntax o r spelling errors. Electronically signed by: Makayla Parish DO 11/27/2020 4:20 PM
[2020-11-27] MEDS ORDERED: MoRPHine SULFATE 2 MG/ML CARP IV PRN (17:54)
[2020-11-27] MEDS ORDERED: ACETAMINOPHEN 325 MG TAB PO STA (17:55)
[2020-11-27] MEDS ORDERED: MoRPHine SULFATE 2 MG/ML CARP IV STA (17:55)
--- NOTE | 2020-11-27 18:09 | History & Physical Report ---
Date of Service November 27, 2020 Assessment & Plan (1) Fall: Plan: S/P fall off the porch across one step on to his back - Acute imaging negative for bleeding or fractures - C- spine cleared radiologically and clinically. No pain with movement and/or palpation - Pain with palpation to lower right ribs and flank - Pain control- Tylenol scheduled for tonight, OxyContin 5mg PO q6hr prn, Morphine 2mg IV q4 PRN, Lidoderm patch - ICS q1 while awake (2) Chest wall contusion: Plan: As above (3) Pleural effusion: Plan: Chronic- does not appear to have had a diagnostic thoracentesis in the past - CKD/HF related vs oncological process - Right pleural effusion has now increased in size, left remains stable - Will hold his Eliquis tonight and pulmonary evaluation- if not warranted can restart Eliquis (4) PAF (paroxysmal atrial fibrillation): Plan: Afib/Flutter- ECG on admission is more consistent with atrial flutter - Currently rate controlled- continue metoprolol - Hold Eliquis s/p fall as well as pending evaluation for diagnostic thoracentesis - Restart when able (5) Anxiety and depression: Plan: Continue Seroquel and sertraline (6) Coronary artery disease: Plan: Remains on atorvastatin 80mg, Metoprolol - Eliquis replaced his aspirin following PAF (7) Hypertension: Plan: Good control with his CKD 4 normally less than 120 - current slight elevation >140 likely related to his pain - continue as above (8) Chronic kidney disease, stage 4 (severe): Plan: CKD 4 stable - mild elevation of BUN and mucous membranes dry - LR at 80 ml/hour for 1 liter overnight - Follow daily BMP (9) Diabetes: Plan: Hold glipizide - sliding scale aspart insulin CF 20, carb ration 1:20 (10) Abnormal laboratory test: Plan: blasts and acanthrocytes on Diff - patient was pancytopenic with his COVID, however was some concern of possible myelodysplastic - never had biopsy - apparently is following with Dr. Angel (oncologist as outpatient for his chronic anemia) - repeat peripheral smear in the morning- further diagnostics if warranted History of Present Illness Chief Complaint: Fall Primary Care Provider: Vinh Montano, DO 89 YOM with past medical history of: COVID, Pancytopenia, falls, splenic laceration post fall requiring removal of spleen, paroxysmal Afib on Eliquis, BPH, DMII, ? myelodysplastic syndrome, rib fractures, anxiety/depression, COPD, CAD with CABG. Patient comes to the emergency room today after falling while letting his dog out. He reports he fell while opening the door on to his right back and side, and could not get up. He is mostly complaining of lower rib/back pain. The patient is very hard of hearing and most communication was done with me writing and him replying. The patient has history of falls requiring hospitalization and following last admission he did recover [facility] and currently lives at home. In the EMD the patient has had CT of the head, chest, abdomen and pelvis and cervical spine CT. He is known to have chronic left pleural effusion and small right pleural effusions. No acute findings were noted on these imaging other than worsening of right sided pleural effusion. Patient denies any changes in his breathing status and denies any fevers or chills or worsening of his cough. Denies any chest pain or discomfort. Rossy ent was given 50mcg of Fentanyl in the EMD for pain control, but patient remains in some moderate discomfort. Patient will be admitted for pain control, IVF for mild increase in BUN and dry mucous membranes, Follow up on his CBC differentials, PT/OT evaluation and evaluation for rehab vs. return to home. Patient states now that he would likely need some assistance. Did talk to the patient's daughter who lives with him and helps take care of him at home. She endorses that he is having a difficult time getting around his house with his walker and is mostly dependant on wheel chair. He has also been having difficulty with going up and down his steps at home due to weakness and imbalance. She would favor rehab placement if this would help him. She was also updated on my discussion with patient regarding code status: patient was previously DNR/DNI. We (patient and I) discussed if his heart would stop would he want CPR and if he would have trouble breathing and/or his heart would stop would he want intubated and placed on a ventilator to keep him alive. He replied if I don't get that I will right? I stated "yes" and he said "he was not ready to ". For his abnormal CBC he has been following up with Dr. Heller's office for Epogen injections and received a "blood" transfusion last week. Patient has received his COVID vaccine as well as previous COVID. His COVID micah t on admission is:pending at the time of this documentation. Allergies Allergy/AdvReac Type Severity Reaction Status Date / Time cefuroxime Allergy Intermediate Hives Verified 11/27/20 16:22 Penicillins Allergy Mild Hives Verified 11/27/20 16:22 olanzapine AdvReac Intermediate Hallucinations, Verified 11/27/20 16:22 confusion and panic Home Medications Medication Instructions Recorded Confirmed Type atorvastatin 80 mg tablet 80 mg PO QAM 01/29/18 11/27/20 History mirabegron 25 mg tablet,extended 25 mg PO HS 01/29/18 11/27/20 History release 24 hr (Myrbetriq) pantoprazole 40 mg tablet,delayed 40 mg PO DAILYBB 01/29/18 11/27/20 History release finasteride 5 mg tablet 5 mg PO HS #90 tab 03/19/19 11/27/20 Rx glipizide 5 mg tablet 10 mg PO QAM 03/28/20 11/27/20 History hydroxyzine HCl 10 mg tablet 10 mg PO DIRECTED PRN 03/28/20 11/27/20 History sertraline 100 mg tablet 100 mg PO QAM 03/28/20 11/27/20 History cyanocobalamin (vitamin B-12) 500 500 mcg PO QAM 04/20/20 11/27/20 History mcg tablet (Vitamin B-12) tamsulosin 0.4 mg capsule 0.4 mg PO HS 04/20/20 11/27/20 History thiamine HCl (vitamin B1) 100 mg 100 mg PO QAM 04/20/20 11/27/20 History tablet (Vitamin B-1) umeclidinium 62.5 mcg-vilanterol 1 puffs INH QAM 04/20/20 11/27/20 History 25 mcg/actuation powdr for inhalation (Anoro Ellipta) vitamins A,C,Y-hahx-mjrlbg 14,320 1 cap PO AMHS 04/20/20 11/27/20 History unit-226 mg-200 unit capsule (PreserVision AREDS) quetiapine 25 mg tablet (Seroquel) 25 mg PO HS 08/17/20 11/27/20 History metoprolol succinate 50 mg 50 mg PO BID 11/10/20 11/27/20 History tablet,extended release 24 hr apixaban 2.5 mg tablet (Eliquis) 2.5 mg PO BID 11/27/20 11/27/20 History 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, stage 4 (severe) Confusion COPD (chronic obstructive pulmonary disease) COVID-19 04/2020 Elevated troponin Fall Gastric ulcer Gastritis and duodenitis Hematuria History of acute renal failure KIDNEY STONE BLOCKAGE 2 YR AGO/NO PROBLEMS SINCE History of kidney stones Hx of neck injury HX BROKEN NECK, 1 ST AND SECOND VERTEBRAE - 2 YRS AGO Hx of seasonal allergies Hydronephrosis Hyperlipidemia Hypertension Multiple rib fractures Pleural effusion Renal colic Restless leg syndrome Weakness Weakness Surgical History Hx of appendectomy Hx of cardiac catheterization BEFORE BYPASS SURGERY/BLOCKAGES Hx of colonoscopy 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 Family History Other Hypertension Social History Smoking Status: Never smoker Tobacco Type: Cigarettes Second Hand Exposure: No; Hx Alcohol Use: Yes Alcohol type: beer Hx Substance Use: No Preferred Language: Tanzanian Communication Ability: Effective Subscription Agent Required: No Beliefs That Will Affect Care: None marital status: / Current Living Situation: Family Current Living Situation Comment: Lives with his daughter and his daughters boyfriend Other Information That Helps Us Care for You: No Feels Safe at Home: Yes Safety Concerns: Feels Safe At This Time Assistive Devices: Hearing Aid - Right, Walker and Wheelchair Review of Systems Review of Systems: REVIEW OF SYSTEMS: Constitutional: No fever, sweats or chills Eyes: No diplopia, no worsening or blurred vision ENT: (+) difficulty hearing, no trouble swallowing Respiratory: (+) cough, no change in his sputum or dyspnea at rest or on exertion Cardiovascular: No chest pain, tightness or palpitations Abdomen: No pain, nausea, vomiting, diarrhea or constipation Musculoskeletal: (+) back pain Neurologic: (+) balance problems, No weakness, numbness/tingling Psychiatric: No anxiety or depression Skin: No rash or itch Physical Exam Physical Exam: PHYSICAL EXAM: General: awake, alert, no apparent distress Head: Normocephalic, atraumatic, no tender areas to scalp/head ENT: PERRL, EOMI, no pharyngeal exudate, mucous membranes dry Neuro: AAO x 3, speech clear and appropriate, strength intact bilaterally 5/5, sensation intact and equal all extremities and dermatomes, no pronator drift Chest: equal rise and fall of the chest, no accessory muscle use, no heaves or thrills, scattered wheeze and rhonchi throughout, on room air, Cardiac: irregular rate and rhythm, telemetry reviewed- afib/aflutter, skin warm dry, cap refill <3 seconds, peripheral pulses +2 no JVD, no murmur, no edema GI: NABS x 4 quadrants, soft, nontender to palpation, no rebound, guarding or tenderness : Spontaneously voiding, no pain, no CVA tenderness, MSK: pain to palpation last rib on the right side back and flank Psych: Normal mood and affect Skin: no rash or erythema Results & Data Results & Data ([facility]) Vital Signs (Past 12 Hours) Vital Signs Temp Pulse Resp BP Pulse Ox 11/27/20 14:01 36.7 C 90 18 141/77 H 98 Laboratory Results Abnormal lab results 11/27/20 11/27/20 11/27/20 Range/Units 14:20 14:20 14:20 RBC 3.22 L (4.7-6.1) M/uL Hgb 9.7 L (14.0-18.0) g/dL Hct 30.1 L (42-52) % RDW Std Deviation 52.4 H (36.4-46.3) fL RDW Coeff of Leeanna 15.9 H (11.5-14.5) % Plt Count 112 L (130-400) K/uL Absolute Nucleated RBC 9.63 H (0-0) K/uL Neutrophils # (Manual) 7.67 H (1.4-6.5) K/uL Total Absolute Neuts 7.67 H (1.4-6.5) K/uL Monocytes # (Manual) 1.15 H (0.11-0.59) K/uL Blast Cells # (Man) 0.13 H (0-0) K/uL PT 12.4 H (9.0-12.0) Seconds INR 1.2 H (0.9-1.1) Sodium 135 L (136-145) mmol/L BUN 32 H (7-18) mg/dl BUN/Creatinine Ratio 24.0 H (10-20) Glucose 235 H (70-99) mg/dl Total Creatine Kinase 35 L (39-308) U/L Albumin 2.5 L (3.4-5.0) gm/dl Albumin/Globulin Ratio 0.6 L (0.9-2) Diagnostic Findings Abdomen/Pelvis CT 11/27/20 14:01 CT OF THE ABDOMEN AND PELVIS WITH CONTRAST CLINICAL HISTORY: Trauma. COMPARISON STUDY: CT of the abdomen and pelvis October 17, 2020. TECHNIQUE: Following IV administration of 94 mL of Optiray, axial images of the abdomen and pelvis were obtained from the lung bases to the proximal femurs. Images were reviewed in the axial, sagittal, and coronal planes. IV contrast was administered without complication. Automated exposure control was utilized for the study. A dose lowering technique was utilized adhering to the principles of ALARA. CT DOSE: 1663.91 mGy.cm FINDINGS: Please note that the chest CT will be reported separately. Healing left-sided rib fractures are again noted. These were shown on prior CT. Bilateral pleural effusions are better depicted on that exam. No hemoperitoneum or pneumoperitoneum is present. Enhancement of the liver is heterogeneous. There is no evidence for traumatic injury to the liver, adrenal glands, kidneys or pancreas. There is a right renal cyst. The spleen is not visualized. The caliber and wall thickness of small and large bowel are normal. There is colonic diverticulosis without evidence for acute diverticulitis. No acute lumbar spine or pelvic fracture is noted. Old L1 compression deformity is unchanged. There is extensive plaque of the abdominal aorta. Bladder wall thickening is unchanged. This is likely chronic. Bilateral renal calculi are noted. There are no ureteral calculi. There is no hydronephrosis. IMPRESSION: 1. No acute traumatic findings within the abdomen or pelvis. 2. Bilateral pleural effusions, better depicted on the chest CT which will be reported separately. 3. Multiple healing left-sided rib fractures. ACT 112: Negative or not required by law. Electronically signed by: Jabari Urias M.D. 11/27/2020 4:[address] 11/27/20 14:01 CT OF THE CERVICAL SPINE CLINICAL HISTORY: tramua COMPARISON STUDY: No previous studies for comparison. CT DOSE: TECHNIQUE: CT scan of the cervical spine was performed from the skull base to the thoracic inlet. Images are reviewed in the axial, sagittal, and coronal planes. IV contrast was not administered for this examination. A dose lowering technique was utilized adhering to the principles of ALARA. FINDINGS: The visualized portions of the lung apices reveal no evidence of pneumothorax. Interval development of septal thickening and nodularity within the right apex. The prevertebral soft tissues are normal. Chronic appearing fracture of the right facet of C1 is unchanged since prior. There is chronic unfused type II fracture of the odontoid process of C2 without displacement, unchanged since prior study performed on September 23, 2020. No new/acute fracture or dislocation seen. Previously seen severe degenerative changes of the C1 articulation with partial bony fusion is again seen, stable since prior. There is unchanged alignment of the occipital atlantal articulation. Severe multilevel intervertebral disc space narrowing and fusion throughout cervical spine with severe facet arthrosis is again seen throughout cervical spine. Stable mild anterolisthesis of C4 on C5 and C5 on C6 is again seen and unchanged since prior. There is possible central canal narrowing is seen at the C6-7 level. Multilevel neural foraminal stenosis stenosis is again seen bilaterally. IMPRESSION: 1. No acute fracture. Chronic unfused type II fracture of odontoid process of C2 without displacement. Findings are unchanged since prior. 2. Chronic fracture deformity of the right facet of C1, stable since prior. 3. Severe multilevel degenerative changes of the spine associated with multiple areas of ankylosis and severe degenerative changes as detailed above. Evaluation of the central canal and neuroforamina are better with MR. 4. The rest of findings as above. ACT 112: Negative or not required by law. The above report was generated using voice recognition software. It may contain grammatical, syntax or spelling errors. Electronically signed by: Makayla Parish DO 11/27/2020 4:[address] 11/27/20 14:01 CT chest diagnostic w con INDICATION: Fall from standing,. TECHNIQUE: Multidetector row helical CT of the chest was performed. Coronal and sagittal reformations were obtained. Automated dose lowering techniques and/or adjustment according to patient size were utilized for this exam. Comparison: Comparison is made to CT abdomen and pelvis 10/17/2020 and CTA chest 10/17/2020 FINDINGS: Lungs and pleura: Moderate bilateral pleural effusions are seen. There are scattered groundglass opacities most prominent in the upper lobes. Bilateral lower lobe atelectasis is seen. Heart and pericardium: Cardiomegaly is seen with biatrial enlargement. Vessels: Severe atherosclerotic changes in the aorta and coronary arteries. No pulmonary embolism is seen. Reflux of contrast into the IVC is noted. Mediastinum and linda: Unremarkable. Chest wall and lower neck: Unremarkable. Abdomen: For findings below the diaphragm, please refer to CT of the abdomen dated the same. Bones: Old partially healed rib fractures of the left 11th and 12th ribs are seen with bony bridging consistent with callus formation. No evidence of acute fracture the thoracic spine. Partial visualization is chronic anterior compression deformity of L1 which is better appreciated and CT abdomen pelvis performed same day. IMPRESSION: 1. Interval enlargement of right pleural effusion with redemonstration of moderate to large left effusion. Scattered groundglass opacities may represent infectious/inflammatory process. 2. No evidence of acute fracture. 3. Findings compatible with heart failure. ACT 112: Negative or not required by law. Electronically signed by: Ag Bradshaw M.D. 11/27/2020 4:[address] 11/27/20 14:01 CT head/brain wo con CLINICAL HISTORY: trauma COMPARISON STUDY: September 23, 2020 TECHNIQUE: Axial CT of the brain is performed from the vertex to the skull base. IV contrast was not administered for this examination. A dose lowering technique was utilized adhering to the principles of ALARA. CT DOSE: FINDINGS: No intra or extra-axial mass lesions are visualized. There is no CT evidence of acute cortical infarction. There is no evidence of midline shift. There is no acute hemorrhage. No acute depressed calvarial fractures are visualized. There are patchy white matter hypodensities likely on a small vessel basis. Redemonstration of mild diffuse atrophic changes of brain parenchyma associated with ex vacuo dilatation, stable since prior. Redemonstration of the mild mucosal thickening of visualized portion of the right and left maxillary sinuses. The rest of paranasal sinuses and mastoid air cells are patent and well-aerated. IMPRESSION: No acute intracranial hemorrhage, no midline shift or space occupying lesions. Atrophic changes of brain parenchyma and ex vacuo dilatation of ventricles, unchanged since prior. Possible sinusitis involving maxillary sinuses. ACT 112: Negative or not required by law. The above report was generated using voice recognition software. It may contain grammatical, syntax or spelling errors. Electronically signed by: Makayla Parish DO 11/27/2020 4:01 PM Medications Administered Discontinued Medications Home Medications atorvastatin 80 mg tablet 80 mg PO QAM 01/29/18 [History Confirmed 11/27/20] mirabegron 25 mg tablet,extended release 24 hr (Myrbetriq) 25 mg PO HS 01/29/18 [History Confirmed 11/27/20] pantoprazole 40 mg tablet,delayed release 40 mg PO DAILYBB 01/29/18 [History Confirmed 11/27/20] finasteride 5 mg tablet 5 mg PO HS #90 tab 03/19/19 [Rx Confirmed 11/27/20] glipizide 5 mg tablet 10 mg PO QAM 03/28/20 [History Confirmed 11/27/20] hydroxyzine HCl 10 mg tablet 10 mg PO DIRECTED PRN 03/28/20 [History Confirmed 11/27/20] sertraline 100 mg tablet 100 mg PO QAM 03/28/20 [History Confirmed 11/27/20] cyanocobalamin (vitamin B-12) 500 mcg tablet (Vitamin B-12) 500 mcg PO QAM 04/20/20 [History Confirmed 11/27/20] tamsulosin 0.4 mg capsule 0.4 mg PO HS 04/20/20 [History Confirmed 11/27/20] thiamine HCl (vitamin B1) 100 mg tablet (Vitamin B-1) 100 mg PO QAM 04/20/20 [History Confirmed 11/27/20] umeclidinium 62.5 mcg-vilanterol 25 mcg/actuation powdr for inhalation (Anoro Ellipta) 1 puffs INH QAM 04/20/20 [History Confirmed 11/27/20] vitamins A,C,M-vsrx-kmktld 14,320 unit-226 mg-200 unit capsule (PreserVision AREDS) 1 cap PO AMHS 04/20/20 [History Confirmed 11/27/20] quetiapine 25 mg tablet (Seroquel) 25 mg PO HS 08/17/20 [History Confirmed 11/27/20] metoprolol succinate 50 mg tablet,extended release 24 hr 50 mg PO BID 11/10/20 [History Confirmed 11/27/20] apixaban 2.5 mg tablet (Eliquis) 2.5 mg PO BID 11/27/20 [History Confirmed 11/27/20] Active Medications Acetaminophen (Acetaminophen 325 Mg Tab) 650 mg PO Q6 BEBA Stop: 12/27/20 17:59 Morphine Sulfate (Morphine Sulfate 2 Mg/Ml Carp) 2 mg IV Q4 PRN PRN Reason: Severe Pain Stop: 12/11/20 17:53 Acetaminophen (Acetaminophen 325 Mg Tab) 650 mg PO NOW STA Stop: 11/27/20 17:56 Last Admin: 11/27/20 18:02 Dose: 650 mg Documented by: [id number] Fentanyl Citrate (Fentanyl Citrate 100 Mcg/2 Ml Vial) 50 mcg IV ONE PRN PRN Reason: Pain Last Admin: 11/27/20 14:24 Dose: 50 mcg Documented by: [id number] Sodium Chloride (Nss) 500 mls @ 999 mls/hr IV .Q31M BEBA Stop: 11/27/20 14:45 Last Infusion: 11/27/20 15:41 Dose: 0 mls/hr Documented by: [id number] Admin: 11/27/20 14:24 Dose: 999 mls/hr Documented by: [id number] Morphine Sulfate (Morphine Sulfate 2 Mg/Ml Carp) 2 mg IV NOW STA Stop: 11/27/20 17:56 Last Admin: 11/27/20 18:02 Dose: 2 mg Documented by: [id number] Ondansetron HCl (Ondansetron Inj 2 Mg/Ml 2 Ml Vial) 4 mg IV NOW STA Stop: 11/27/20 14:02 Last Admin: 11/27/20 14:24 Dose: 4 mg Documented by: [id number] ECG Additional Comments: Atrial fibrillation with rapid ventricular response Septal infarct , age undetermined ST & T wave abnormality, consider inferolateral ischemia Abnormal ECG When compared with ECG of 19-OCT-2020 17:36, Atrial fibrillation has replaced Atrial flutter Nonspecific T wave abnormality now evident in Anterior leads Confirmed by Leland Wallis ([id number]) on 11/27/2020 4:19:19 PM Code Status & VTE Plan Code Status CODE: FULL VTE: SCDs, chemoprophylaxis and Eliquis on hold for now VTE Prophylaxis Plan VTE Prophylaxis will be ordered: Yes Supervising Physician Co-Signing Physician Notes I personally saw and examined the patient. I verified all hillman points and agree with KRISTIAN Brar with the following exceptions and/or additions: 89 year old mechanical fall at home but also having longer standing mobility issues. Feels he is not safe to return home at this time and possibly needing rehabilitation. Main pain from the fall on his right lower chest. Pleural effusions noted in history. Although on room air he has never had a diagnostic tap of these and this may represent a good time to do it since Eliquis can be held over the weekend. O/E No respiratory distress, scattered wheezing, prolonged expiratory phase, HS RRR, no murmurs, Abdo SNT, BS normal. A/P Fall - PT/OT Bilateral pleural effusions - hold Eliquis and consult pulm to consider diagnostic thoracentesis Blast in lab work - peripheral smear in AM although already under heme no recent notes available at time of admission PG Care Time/CCT Total # of Minutes Spent Total Time Spent with Patient: Total time spent is greater than 50% in coordination of care (as documented) at patient's floor/unit and/or counseling patient: Coding Level of Care Code 86431 Initial Inpt Care Lvl 3 Diagnoses Fall W19.XXXA Encounter type: initial encounter Chest wall contusion S20.219A Encounter type: initial encounter Laterality: unspecified laterality Pleural effusion J90 PAF (paroxysmal atrial fibrillation) I48.0 Anxiety and depression F41.9; F32.9 Coronary artery disease I25.10 Associated angina: without angina Coronary Disease-Associated Artery/Lesion type: [place] artery [place] vs. transplanted heart: [place] heart Hypertension I10 Hypertension type: essential hypertension Abnormal laboratory test R89.9 Chronic kidney disease, stage 4 (severe) N18.4 Diabetes E11.9 Diabetes mellitus complication status: without complication Diabetes mellitus skilled nursing insulin use: without manager terminal use Diabetes mellitus type: type 2 (1) Diabetes Diabetes mellitus complication status: without complication Diabetes mellitus manager terminal insulin use: without manager terminal use Diabetes mellitus type: type 2 Qualified Code(s): E11.9 - Type 2 diabetes mellitus without complications (2) Coronary artery disease Associated angina: without angina Coronary Disease-Associated Artery/Lesion type: [place] artery [place] vs. transplanted heart: [place] heart Qualified Code(s): I25.10 - Atherosclerotic heart disease of [place] coronary artery without angina pectoris (3) Chest wall contusion Encounter type: initial encounter Laterality: unspecified laterality Qualified Code(s): S20.219A - Contusion of unspecified front wall of thorax, initial encounter (4) Hypertension Hypertension type: essential hypertension Qualified Code(s): I10 - Essential (primary) hypertension (5) Fall Encounter type: initial encounter Qualified Code(s): W19.XXXA - Unspecified fall, initial encounter
[2020-11-27] MEDS ORDERED: CARBOHYDRATES FOR HYPOGLYCEMIA PO PRN (22:09)
[2020-11-27] MEDS ORDERED: DEXTROSE 50% 50 ML SYRINGE IV PRN (22:09)
[2020-11-27] MEDS ORDERED: GLUCOSE 40% GEL 15 GM TUBE PO PRN (22:09)
[2020-11-27] MEDS ORDERED: GLUCAGON FOR INJ 1 MG VIAL SQ PRN (22:09)
[2020-11-27] MEDS ORDERED: oxyCODONE HCL IR 5 MG TAB (IMMEDIATE RELEASE) PO PRN (22:09)
[2020-11-27] MEDS ORDERED: GLUCOSE 10 TABS/TUBE PO PRN (22:09)
[2020-11-27] MEDS ORDERED: LACTATED RINGER'S 1,000 ML IV ONE (22:32)
[2020-11-27] MEDS: ACETAMINOPHEN 325 MG TAB PO SCH ×2 (22:38→23:38)
[2020-11-27] MEDS: INSULIN ASPART 100 UNITS/ML 3 ML PEN SC SCH (23:30)
[2020-11-27] MEDS: FINASTERIDE 5 MG TAB PO SCH (23:31)
[2020-11-27] MEDS: MIRABEGRON ER 25 MG TAB PO SCH (23:31)
[2020-11-27] MEDS: QUEtiapine FUMARATE 25 MG TABLET PO SCH (23:34)
[2020-11-27] MEDS: LIDOCAINE 5% 1 PATCH TD SCH (23:34)
[2020-11-27] MEDS: METOPROLOL SUCC 50MG EXT REL TAB PO SCH (23:34)
[2020-11-27] MEDS: TAMSULOSIN HCL 0.4 MG CAP PO SCH (23:35)
[2020-11-28] MEDS: ACETAMINOPHEN 325 MG TAB PO SCH ×3 (05:35→18:11)
[2020-11-28] MEDS: PANTOprazole 40 MG TAB PO SCH (05:35)
[2020-11-28 05:51] LABS: Appearance Urine Clear (Clear); Bilirubin Urine Negative (Negative); Blood Urine Negative (Negative); Color Urine Yellow; Glucose Urine UA Negative (Negative); Ketones Urine Negative (Negative); Leukocyte Esterase Urine Negative (Negative); Nitrite Urine Negative (Negative); Protein Urine Negative (Negative); Urobilinogen Urine Negative (Negative); pH Urine 5.5 (4.5-7.5)
[2020-11-28 07:29] LABS: Anisocytosis Present; Basophils % (auto) 2.2 %; Eosinophils # (auto) 0.02 K/uL (0-0.5); Eosinophils % (auto) 0.2 %; Giant Platelets 1+; Hematocrit (blood only) 27.6 % (42-52); Immature Granulocytes # (auto) 0.01 K/uL (0.00-0.02); Immature Granulocytes % (auto) 0.1 %; Lymphocytes # (auto) 1.32 K/uL (1.2-3.4); Lymphocytes % (auto) 14.6 %; Mean Corpuscular Hemoglobin 30.7 pg (25-34); Mean Corpuscular Hgb Conc 32.6 g/dL (32-36); Mean Corpuscular Volume 94.2 fL (80-100); Monocytes # (auto) 2.66 K/uL (0.11-0.59); Monocytes % (auto) 29.4 %; Neutrophils # (auto) 4.85 K/uL (1.4-6.5); Neutrophils % (auto) 53.5 %; Nucleated RBC # (auto) 9.01 K/uL (0-0); Nucleated RBC % (auto) 99.4 %; Platelet Count 98 K/uL (130-400); Platelet Estimate Decreased (Normal); Poikilocytosis Present; RDW Coefficient of Variation 16.1 % (11.5-14.5); RDW Standard Deviation 52.9 fL (36.4-46.3); Red Blood Count 2.93 M/uL (4.7-6.1); White Blood Count 9.06 K/uL (4.8-10.8)
[2020-11-28 07:31] LABS: BUN Creatinine Ratio 25.9 (10-20); Calcium 8.3 mg/dl (8.5-10.1); Creatinine Clr Calc Pharmacy 45.5 ml/min; Est GFR (African American) 68.3 ml/min; Potassium 4.3 mmol/L (3.5-5.1)
[2020-11-28] MEDS: UMECLIDINIUM/VILANTEROL 62.5/25MCG 7 PUFFS/INHALER INH SCH (09:18)
[2020-11-28] MEDS: THIAMINE HCL 100 MG TAB PO SCH (09:18)
[2020-11-28] MEDS: SERTRALINE HCL 100 MG TABLET PO SCH (09:18)
[2020-11-28] MEDS: METOPROLOL SUCC 50MG EXT REL TAB PO SCH ×2 (09:18→22:00)
[2020-11-28] MEDS: ATORVASTATIN 40 MG TAB PO SCH (09:18)
[2020-11-28] MEDS: CYANOCOBALAMIN 500 MCG TABLET (VITAMIN B-12) PO SCH (09:18)
[2020-11-28] MEDS: INSULIN ASPART 100 UNITS/ML 3 ML PEN SC SCH ×4 (10:04→21:57)
--- NOTE | 2020-11-28 10:08 | Hospitalist Progress Note ---
Date of Service November 28, 2020 Assessment & Plan (1) Fall: Plan: 89 yo M with PMH of COVID, pancytopenia, COPD, chronic pleural effusions, CAD s/p CABG, paroxysmal Afib on Eliquis diagnosed last month after hospitalization for weakness and discharge to rehab, multiple falls now admitted after another mechanical fall 1) Fall - Associated chest wall contusion, healing rib fractures from previous falls per imaging - Low concern for head trauma/bleeding given negative head CT - CT spine negative for acute trauma, demonstrating chronic fractures and degenerative changes - Pain control- Tylenol, oxycontin 5mg PO q6hr prn, morphine 2mg IV q4 PRN, lidoderm patch - Incentive spirometry q1h while awake - CXR if dyspneic, O2 desaturation, febrile 2) Pleural effusions - Chronic b/l effusions R > L, apparently no thoracentesis in past, suspicious for fall trauma causing extravasation of blood/fluid into pleural space, possibly some contribution from fluid retention 2/2 CKD/HF. Malignancy also possible - Pulmonary consult placed to evaluate for need for thoracentesis during this hospitalization, awaiting recommendations 3) Paroxysmal atrial fibrillation -Admission EKG consistent with atrial flutter - Currently rate controlled- continue metoprolol - Hold Eliquis s/p fall as well as pending evaluation for diagnostic thoracentesis, may restart tomorrow if thoracentesis not recommended 4) Anxiety and depression: - Continue seroquel and sertraline 5) Coronary artery disease: - Continue atorvastatin, metoprolol - Off aspirin after diagnosis of paroxysmal atrial fibrillation in October, currently anticoagulated with Eliquis 6) Hypertension: - Adequately controlled with metoprolol at this time (8) Chronic kidney disease, stage 4 (severe): - Baseline BUN in 30s, Cr 1.5-2. Currently BUN 29, Cr 1.1, stable. - Received LR 1 L in ED - Trend daily BMP 9) Diabetes: - ISS - CF 20, carb ratio 1:20 10) Pancytopenia - Chronic issue concerning for possible myelodysplastic syndrome, following with outpatient oncologist Dr. Angel - Peripheral smear pathology report pending Admission and Anticipated Discharge Date Admission Date: November 27, 2020 Supervising Physician Co-Signing Physician Notes I personally examined the patient and verified all hillman points of history and exam, discussed case, and agree with decision making with Dr Jaime. Patient feeling betterstill sore, still bumped and bruised, but notes much better than yesterday. Vitals noted, in general he is awake and alert pleasant no distress. HEENT normocephalic atraumatic mucous membranes moist. Breathing unlabored no accessory muscle use good effortcoached on incentive spirometry, and he uses well. No focal neuro deficits. Fall/weaknessfortunately no fractures. PT/OT eval and treat, unfortunately may need rehab yet again. Pleural effusionssuspect some component of chronic diastolic/valvular CHFtrial of diuresis, and likely some degree of fluid leak from his moderate protein malnutrition. Appreciate pulmonary input. Otherwise as above, can resume anticoagulation since no thoracentesis needed. Continue to follow. Subjective Pt denying acute complaints, did not appear to be in any distress. Stated he felt ok but interview/exam limited by pt's poor hearing. Review of Systems Review of Systems: All systems reviewed & are unremarkable except as noted in Subjective Potentially limited by pt's poor hearing Ear, Nose, Mouth, Throat: + hearing loss Physical Exam Physical Exam: PHYSICAL EXAM: General: awake, no apparent distress Head: Normocephalic, atraumatic, no tender areas to scalp/head ENT: EOMI, dry mucous membranes, limited hearing b/l Neuro: speech intact, no gross focal deficits Chest: slightly diminished throughout lung rondon, expiratory wheezes, faint crackles along lung bases b/l Cardiac: irregular rate and rhythm, no murmur, no JVD or edema Abdomen: soft, nontender, nondistended MSK: no pain to palpation of chest along rib distribution Skin: no rash or erythema Results & Data Results & Data ([facility]) Vital Signs (Past 12 Hours) Vital Signs Temp Pulse Pulse Resp BP Pulse Ox 11/28/20 07:30 36.6 C 93 H 20 116/70 95 11/27/20 23:00 36.6 C 101 H 18 115/74 96 Resident Activity Tracking Resident Involvement: Resident Care Provided Care Provided: Adult Hospital Medicine (1) Fall Encounter type: initial encounter Qualified Code(s): W19.XXXA - Unspecified fall, initial encounter
--- NOTE | 2020-11-28 10:23 | Pulmonary Consultation ---
Date of Consultation November 28, 2020 Assessment & Plan (1) Pleural effusion: (2) COPD (chronic obstructive pulmonary disease): COPD type: unspecified COPD Qualified Code(s): J44.9 - Chronic obstructive pulmonary disease, unspecified CT chest 11/27/2020 personally reviewed: Centrilobular emphysema with intralobular thickening Bilateral pleural effusion Dependent atelectasis bilateral lower lobes Cardiomegaly No mediastinal lymphadenopathy --Bilateral pleural effusion Likely from underlying CHF Patient is not in acute distress saturating 94% on room air Recommend diuresis to keep the patient negative balance --COPD On Anoro at home Continue with the same regimen Plan: Patient is saturating 94% on room air, the etiology of bilateral pleural effusion is most likely underlying CHF Would recommend diuresis to keep at least -1 L balance on a daily basis I did discuss the possibility of doing thoracentesis in future if the effusion does not go down. Patient said that he would not like any procedures done even if it is question of life and Okay to resume Eliquis No further recommendation from pulmonary perspective. Call directly with any questions We will sign off Thank you for consultation Please note the above document was generated using voice recognition software. It may contain grammatical, syntax or spelling errors.Any formal questions or concerns about the content, text or information contained within the body of this dictation should be directly addressed to the provider for clarification. History of Present Illness Attending Physician: Juvencio Gardner DO History of Present Illness 89-year-old male past medical history of A. fib on Eliquis, diabetes type 2, COPD, coronary artery disease s/p CABG presented to the ED s/p fall Patient was found to have bilateral pleural effusion pulmonary were consulted for the same At the time of examination patient was saturating 93-94% on room air He was not in any acute respiratory distress. Patient is hard to hear He denies any chest pain, no headache, no nausea, no vomiting. No cough. Has been urinating well after I gave Lasix today. Social history: [id number] smoking history. Allergies Allergy/AdvReac Type Severity Reaction Status Date / Time cefuroxime Allergy Intermediate Hives Verified 11/27/20 16:22 Penicillins Allergy Mild Hives Verified 11/27/20 16:22 olanzapine AdvReac Intermediate Hallucinations, Verified 11/27/20 16:22 confusion and panic Home Medications Medication Instructions Recorded Confirmed Type atorvastatin 80 mg tablet 80 mg PO QAM 01/29/18 11/27/20 History mirabegron 25 mg tablet,extended 25 mg PO HS 01/29/18 11/27/20 History release 24 hr (Myrbetriq) pantoprazole 40 mg tablet,delayed 40 mg PO DAILYBB 01/29/18 11/27/20 History release finasteride 5 mg tablet 5 mg PO HS #90 tab 03/19/19 11/27/20 Rx glipizide 5 mg tablet 10 mg PO QAM 03/28/20 11/27/20 History hydroxyzine HCl 10 mg tablet 10 mg PO DIRECTED PRN 03/28/20 11/27/20 History sertraline 100 mg tablet 100 mg PO QAM 03/28/20 11/27/20 History cyanocobalamin (vitamin B-12) 500 500 mcg PO QAM 04/20/20 11/27/20 History mcg tablet (Vitamin B-12) tamsulosin 0.4 mg capsule 0.4 mg PO HS 04/20/20 11/27/20 History thiamine HCl (vitamin B1) 100 mg 100 mg PO QAM 04/20/20 11/27/20 History tablet (Vitamin B-1) umeclidinium 62.5 mcg-vilanterol 1 puffs INH QAM 04/20/20 11/27/20 History 25 mcg/actuation powdr for inhalation (Anoro Ellipta) vitamins A,C,D-kdhg-zhrxci 14,320 1 cap PO AMHS 04/20/20 11/27/20 History unit-226 mg-200 unit capsule (PreserVision AREDS) quetiapine 25 mg tablet (Seroquel) 25 mg PO HS 08/17/20 11/27/20 History metoprolol succinate 50 mg 50 mg PO BID 11/10/20 11/27/20 History tablet,extended release 24 hr apixaban 2.5 mg tablet (Eliquis) 2.5 mg PO BID 11/27/20 11/27/20 History Patient History Medical History (Updated 11/27/20 @ 18:32 by KRISTIAN Merino) Abnormal ECG Acid reflux CONTROLLED Acute bronchitis Anxiety and depression Atypical pneumonia AVM (arteriovenous malformation) of duodenum, acquired with hemorrhage BPH (benign prostatic hyperplasia) Cervical spine fracture 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, stage 4 (severe) Confusion COPD (chronic obstructive pulmonary disease) COVID-19 04/2020 Elevated troponin Fall Gastric ulcer Gastritis and duodenitis Hematuria History of acute renal failure KIDNEY STONE BLOCKAGE 2 YR AGO/NO PROBLEMS SINCE History of kidney stones Hx of neck injury HX BROKEN NECK, 1 ST AND SECOND [place] - 2 YRS AGO Hx of seasonal allergies Hydronephrosis Hyperlipidemia Hypertension Multiple rib fractures Pleural effusion Renal colic Restless leg syndrome Weakness Weakness Surgical History Hx of appendectomy Hx of cardiac catheterization BEFORE BYPASS SURGERY/BLOCKAGES Hx of colonoscopy 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 Family History Other Hypertension Social History Smoking Status: Never smoker Tobacco Type: Cigarettes Second Hand Exposure: No; Hx Alcohol Use: Yes Alcohol type: beer Hx Substance Use: No Preferred Language: Hungarian Communication Ability: Effective Soda Tester Required: No Beliefs That Will Affect Care: None marital status: Current Living Situation: Family Current Living Situation Comment: Lives with his daughter and his daughters boyfriend How many Children do You have: 1 Other Information That Helps Us Care for You: No Feels Safe at Home: Yes Safety Concerns: Feels Safe At This Time Assistive Devices: Walker Review of Systems Review of Systems: All systems reviewed & are unremarkable except as noted in HPI & below Physical Exam Physical Exam: Constitutional: No acute distress HEENT: EOMI, PERRLA, hard to hear Respiratory system: Decreased air entry bilaterally, no wheeze, rhonchi, posit keith crackles bilaterally CVS: S1-S2 positive, positive for systolic murmur appreciated best at the aorta, distant heart sounds Abdomen: Soft, nontender, nondistended, positive bowel sounds x4 Extremities: +2 pulses bilaterally radialis/ dorsalis pedis, no cyanosis, +1 edema bilateral lower extremity Neuro: Awake alert oriented x3 Psych: Normal mood and affect G/U: No Prakash Skin: no rashes, warm and dry Lymphatic: no cervical or axillary lymphadenopathy Results & Data Results & Data ([facility]) Vital Signs (Past 12 Hours) Vital Signs Temp Pulse Pulse Resp BP Pulse Ox 11/28/20 07:30 36.6 C 93 H 20 116/70 95 11/27/20 23:00 36.6 C 101 H 18 115/74 96 11/28/20 06:46 11/28/20 06:46 PG Care Time/CCT Total # of Minutes Spent Total Time Spent with Patient: Total time spent is greater than 50% in coordination of care (as documented) at patient's floor/unit and/or counseling patient: Coding Level of Care Code 89604 Initial Inpt Care Lvl 3 Diagnoses Pleural effusion J90 COPD (chronic obstructive pulmonary disease) J44.9 COPD type: unspecified COPD
[2020-11-28] MEDS: FUROSEMIDE 40 MG in SYRINGE 0 ML IV SCH (12:48)
--- NOTE | 2020-11-28 18:07 | Billing Data ---
Date of Service November 28, 2020 Coding Level of Care Code 98665 Subseq Hosp Care Lvl 2
[2020-11-28] MEDS: TAMSULOSIN HCL 0.4 MG CAP PO SCH (20:06)
[2020-11-28] MEDS: MIRABEGRON ER 25 MG TAB PO SCH (20:07)
[2020-11-28] MEDS: QUEtiapine FUMARATE 25 MG TABLET PO SCH (20:08)
[2020-11-28] MEDS: FINASTERIDE 5 MG TAB PO SCH (20:08)
[2020-11-28] MEDS: APIXABAN 2.5 MG TAB PO SCH (21:58)
[2020-11-28] MEDS: LIDOCAINE 5% 1 PATCH TD SCH (21:58)
[2020-11-29] MEDS: PANTOprazole 40 MG TAB PO SCH (06:02)
[2020-11-29] MEDS: ACETAMINOPHEN 325 MG TAB PO SCH ×5 (06:02→22:46)
[2020-11-29 07:13] LABS: BUN Creatinine Ratio 23.7 (10-20); Calcium 8.3 mg/dl (8.5-10.1); Creatinine Clr Calc Pharmacy 42.1 ml/min; Est GFR (African American) 62.2 ml/min; Est GFR (Non-African American) 53.7 ml/min; Magnesium 1.9 mg/dl (1.8-2.4)
[2020-11-29 07:40] LABS: Hematocrit (blood only) 28.5 % (42-52); Mean Corpuscular Hemoglobin 30.2 pg (25-34); Mean Corpuscular Hgb Conc 31.6 g/dL (32-36); Mean Corpuscular Volume 95.6 fL (80-100); Mean Platelet Volume 13.6 fL (7.4-10.4); Nucleated RBC # (auto) 8.93 K/uL (0-0); Nucleated RBC % (auto) 130.2 %; Platelet Count 98 K/uL (130-400); RDW Coefficient of Variation 15.8 % (11.5-14.5); RDW Standard Deviation 52.9 fL (36.4-46.3); Red Blood Count 2.98 M/uL (4.7-6.1); White Blood Count 6.85 K/uL (4.8-10.8)
[2020-11-29 07:42] LABS: ALC (manual) 1.34 K/uL (1.2-3.4); ANC (manual) 4.83 K/uL (1.4-6.5); Anisocytosis Present; Eosinophils # (manual) 0.27 K/uL (0-0.5); Giant Platelets 1+; Lymphocytes # (manual) 1.34 K/uL (1.2-3.4); Lymphocytes % (manual) 19.5 %; Monocytes # (manual) 0.41 K/uL (0.11-0.59); Neutrophils # (manual) 4.83 K/uL (1.4-6.5); Neutrophils % (manual) 70.5 %; Platelet Estimate Decreased (Normal)
[2020-11-29] MEDS: FUROSEMIDE 40 MG in SYRINGE 0 ML IV SCH (08:19)
--- NOTE | 2020-11-29 09:06 | Hospitalist Progress Note ---
Date of Service November 29, 2020 Assessment & Plan (1) Fall: Plan: 89 yo M with PMH of COVID, pancytopenia, COPD, chronic pleural effusions, CAD s/p CABG, paroxysmal Afib on Eliquis diagnosed last month after hospitalization for weakness and discharge to rehab, multiple falls now admitted after another mechanical fall 1) Fall - Associated chest wall contusion, healing rib fractures from previous falls per imaging - Low concern for head trauma/bleeding given negative head CT - CT spine negative for acute trauma, demonstrating chronic fractures and degenerative changes - Pain control- Tylenol, oxycontin 5mg PO q6hr prn, morphine 2mg IV q4 PRN, lidoderm patch - Incentive spirometry- frequent use encouraged - PT/OT ongoing - Will likely need rehab after d/c, pt would also benefit from home health services for long-term 2) Pleural effusions - Chronic b/l effusions R > L, acutely enlarged. Likely due to combination of fall trauma causing extravasation of blood/fluid into pleural space, possibly some contribution from fluid retention 2/2 CKD/HF, oncotic component from protein malnutrition. - Pulmonary consult recommendation- likely due to CHF, encouraged diuresis. Lasix 40 mg IV daily 3) Paroxysmal atrial fibrillation -Admission EKG consistent with atrial flutter - Currently rate controlled- continue metoprolol - Eliquis 2.5 mg BID restarted yesterday 11/28 4) Anxiety and depression: - Continue seroquel and sertraline 5) Coronary artery disease: - Continue atorvastatin, metoprolol - Off aspirin after diagnosis of paroxysmal atrial fibrillation in October, currently anticoagulated with Eliquis 6) Hypertension: - Adequately controlled with metoprolol at this time 7) Chronic kidney disease, stage 4 (severe): - Baseline BUN in 30s, Cr 1.5-2. Currently BUN 29, Cr 1.1, stable. - Received LR 1 L in ED - Trend daily BMP 8) Diabetes: - ISS - CF 20, carb ratio 1:20 9) Pancytopenia - Chronic issue concerning for possible myelodysplastic syndrome, following with outpatient oncologist Dr. Angel - Peripheral smear pathology report pending Diet: regular DVT ppx: Eliquis Dispo: Likely to rehab Admission and Anticipated Discharge Date Admission Date: November 27, 2020 Supervising Physician Co-Signing Physician Notes . I personally examined the patient and verified all hillman points of history and exam, discussed case, and agree with decision making with Dr Jaime. Feeling better. Less pain, back feels better. Agrees with the need for rehab again. Vitals noted, in general he is awake and alert pleasant no distress. HEENT normocephalic atraumatic mucous membranes moist. Breathing unlabored no accessory muscle use good effort. Skin shows no rashes no pallor or icterus. Fall and weaknessfor rehab again. Given that he seemed to have been a reasonably healthy late 82-year-old prior to Covid and his spleen rupture, hopefully given time he will be able to get back to functional. For now, unfortunately his reserve is quite low, and it seems that it does not take very much to tip him into needing rehab again, as is the case this time. Pleural effusionsappears to be a degree of acute on chronic diastolic CHF. For now is on IV diuretics. Pleural effusion evaluated by pulmonaryagree that right now thoracentesis does not seem necessary. Follow clinically. Follow basic metabolic panel. Once rehab is available, would transition to oral diuretics and to continue to follow closely including serial labs. Stable for rehab once bed available. Subjective Pt reports feeling better, no acute distress. Complaining of minor back ache from laying in bed. Has not been using incentive spirometer often, was encouraged to do so frequently at least 3x per hour, ideally more. Review of Systems Review of Systems: Negative per Subjective, +slight back ache Ear, Nose, Mouth, Throat: + hearing loss Respiratory: no cough, no chest congestion and no dyspnea Physical Exam Physical Exam: PHYSICAL EXAM: General: awake, no apparent distress Head: Normocephalic, atraumatic, no tender areas to scalp/head ENT: EOMI, dry mucous membranes, limited hearing b/l Neuro: speech intact, no gross focal deficits Chest: slightly diminished throughout lung rondon but clear, no wheezes or crac kles noted Cardiac: irregular rate and rhythm, no murmur, no JVD or edema Abdomen: soft, nontender, nondistended MSK: no pain to palpation of chest along rib distribution Skin: no rash or erythema Results & Data Results & Data ([facility]) Vital Signs (Past 12 Hours) Vital Signs Temp Pulse Resp BP Pulse Ox 11/29/20 07:48 37.1 C 106 H 18 122/62 91 09/19/21 07:16 36.9 C 16 117/67 91 11/28/20 21:48 36.9 C 104 H 16 112/60 94 Resident Activity Tracking Resident Involvement: Resident Care Provided Care Provided: Adult Hospital Medicine (1) Fall Encounter type: initial encounter Qualified Code(s): W19.XXXA - Unspecified fall, initial encounter
[2020-11-29] MEDS: APIXABAN 2.5 MG TAB PO SCH ×2 (09:12→20:40)
[2020-11-29] MEDS: ATORVASTATIN 40 MG TAB PO SCH (09:12)
[2020-11-29] MEDS: METOPROLOL SUCC 50MG EXT REL TAB PO SCH ×2 (09:13→20:40)
[2020-11-29] MEDS: CYANOCOBALAMIN 500 MCG TABLET (VITAMIN B-12) PO SCH (09:13)
[2020-11-29] MEDS: SERTRALINE HCL 100 MG TABLET PO SCH (09:14)
[2020-11-29] MEDS: THIAMINE HCL 100 MG TAB PO SCH (09:14)
[2020-11-29] MEDS: UMECLIDINIUM/VILANTEROL 62.5/25MCG 7 PUFFS/INHALER INH SCH (09:15)
[2020-11-29] MEDS: INSULIN ASPART 100 UNITS/ML 3 ML PEN SC SCH ×4 (09:28→21:20)
--- NOTE | 2020-11-29 17:43 | Billing Data ---
Date of Service November 29, 2020 Coding Level of Care Code 24803 Subseq Hosp Care Lvl 2
[2020-11-29] MEDS: MIRABEGRON ER 25 MG TAB PO SCH (20:37)
[2020-11-29] MEDS: TAMSULOSIN HCL 0.4 MG CAP PO SCH (20:37)
[2020-11-29] MEDS: QUEtiapine FUMARATE 25 MG TABLET PO SCH (20:40)
[2020-11-29] MEDS: FINASTERIDE 5 MG TAB PO SCH (20:40)
[2020-11-29] MEDS: LIDOCAINE 5% 1 PATCH TD SCH (22:46)
[2020-11-30] MEDS: PANTOprazole 40 MG TAB PO SCH (06:02)
[2020-11-30] MEDS: ACETAMINOPHEN 325 MG TAB PO SCH ×4 (06:02→23:31)
[2020-11-30 07:04] LABS: Mean Corpuscular Hgb Conc 31.5 g/dL (32-36)
[2020-11-30 07:27] LABS: ALC (manual) 1.45 K/uL (1.2-3.4); ANC (manual) 3.74 K/uL (1.4-6.5); Eosinophils % (manual) 4.9 %; Hematocrit (blood only) 27.6 % (42-52); Hemoglobin 8.7 g/dL (14.0-18.0); Lymphocytes # (manual) 1.45 K/uL (1.2-3.4); Lymphocytes % (manual) 23.5 %; Mean Corpuscular Hemoglobin 29.8 pg (25-34); Mean Corpuscular Volume 94.5 fL (80-100); Monocytes # (manual) 0.69 K/uL (0.11-0.59); Monocytes % (manual) 11.1 %; Neutrophils # (manual) 3.74 K/uL (1.4-6.5); Neutrophils % (manual) 60.5 %; Nucleated RBC # (auto) 8.39 K/uL (0-0); Nucleated RBC % (auto) 135.7 %; Platelet Count 95 K/uL (130-400); Platelet Estimate Decreased (Normal); Poikilocytosis Present; Polychromasia 1+; RDW Coefficient of Variation 15.5 % (11.5-14.5); RDW Standard Deviation 51.8 fL (36.4-46.3); Red Blood Count 2.92 M/uL (4.7-6.1); White Blood Count 6.18 K/uL (4.8-10.8)
[2020-11-30 07:32] LABS: BUN Creatinine Ratio 23.8 (10-20); Calcium 8.5 mg/dl (8.5-10.1); Creatinine Clr Calc Pharmacy 35.4 ml/min; Est GFR (African American) 50.3 ml/min; Est GFR (Non-African American) 43.4 ml/min; Magnesium 2.2 mg/dl (1.8-2.4); Potassium 3.8 mmol/L (3.5-5.1)
--- NOTE | 2020-11-30 08:07 | Hospitalist Progress Note ---
Date of Service November 30, 2020 Assessment & Plan (1) Fall: Plan: 89 yo M with PMH of COVID, pancytopenia, COPD, chronic pleural effusions, CAD s/p CABG, paroxysmal Afib on Eliquis diagnosed last month after hospitalization for weakness and discharge to rehab, multiple falls now admitted after another mechanical fall 1) Fall - Associated chest wall contusion, healing rib fractures from previous falls per imaging - CT head negative fractures, bleeding, CT spine negative acute trauma, demonstrating chronic fractures and degenerative changes - Pain control- Tylenol, oxycontin 5mg PO q6hr prn, morphine 2mg IV q4 PRN, lidoderm patch - Incentive spirometry- frequent use encouraged - PT/OT ongoing, recommends inpatient rehab - Case management contacting [facility], pt would also benefit from home health services for long-term 2) Pleural effusions sec Acute on chronic diastolic CHF, POA - Chronic b/l effusions R > L, acutely enlarged. Likely due to combination of fall trauma causing extravasation of blood/fluid into pleural space, possibly some contribution from fluid retention 2/2 CKD/HF, oncotic component from protein malnutrition. - Pulmonary consult 11/28- likely due to fluid overload CHF, encouraged diuresis, offered thoracentesis, patient refused. - On Lasix 40 mg IV daily. Considering rising creatinine - hold lasix. Patient has been asymptomatic. Weight has been his stable usual weight. Will follow. 3) Paroxysmal atrial fibrillation -Admission EKG consistent with atrial flutter - Currently rate controlled- continue metoprolol - Eliquis 2.5 mg BID restarted 11/28 4) Anxiety and depression: - Continue seroquel and sertraline 5) Coronary artery disease: - Continue atorvastatin, metoprolol 6) Hypertension: - Adequately controlled with metoprolol at this time 7) Chronic kidney disease, stage 4 (severe): - Baseline BUN in 30s, Cr 1.5-2. Currently BUN 34<--28, Creat 1.43<--1.2 - Received LR 1 L in ED - Trend daily BMP 8) Diabetes: - novolog 9) Pancytopenia - Chronic issue concerning for possible myelodysplastic syndrome, following with outpatient oncologist Dr. Angel - Peripheral smear pathology consistent with myelodysplastic syndrome - Patient usually on Retacrit 40,000 every Monday, was placed on Procrit 40,000 which is biosimilar 10) COPD - continue anoro ellipta 11) BPH -continue finasteride, mirabegron, flomax Diet: regular DVT ppx: Eliquis Dispo: [facility] Admission and Anticipated Discharge Date Admission Date: November 27, 2020 Supervising Physician Co-Signing Physician Notes Resident Physician Supervision Note: I independently interviewed and examined the patient and verified the hillman history and physical, reviewed labs and image studies and agree with resident Dr. Arce findings and care plan. Subjective 89yo Male here due to mechanical fall, PMH COVID pancytopenia splenectomy COPD, chronic pleural effusion, CAD s/p CABG, afib. Patient is very hard of hearing. Patient states they feel tired this morning. Attempted to communicate via writing on paper, patient read some words and then closed his eyes. Unable to determine patient's understanding of his situation. Per nurse patient is forgetful, does have a hearing aid. Per daughter who is POA, patient has mild dementia and was previously DNR/DNI, states she, the patient, and their PCP have had discussion regarding resuscitative measures before. Review of Systems Review of Systems: Unobtainable due to patient's communication difficulties Physical Exam Physical Exam: General: Well appearing, age appropriate Heart: atrial fibrillation Lungs: poor inspiratory effort Abd: soft, NT/ND, +BS Extremities: no swelling, no rashes Results & Data Results & Data ([facility] [place]) Vital Signs (Past 12 Hours) Vital Signs Temp Pulse Resp BP Pulse Ox 11/29/20 22:23 37 C 92 H 16 114/60 92 11/29/20 20:38 99 H 118/62 Laboratory Results 11/30/20 11/30/20 11/30/20 Range/Units 17:23 12:05 08:30 WBC (4.8-10.8) K/uL RBC (4.7-6.1) M/uL Hgb (14.0-18.0) g/dL Hct (42-52) % MCV (80-100) fL MCH (25-34) pg MCHC (32-36) g/dL RDW Std Deviation (36.4-46.3) fL RDW Coeff of Leeanna (11.5-14.5) % Plt Count (130-400) K/uL Absolute Nucleated RBC (0-0) K/uL Nucleated RBC % (auto) % Neutrophils % (Manual) % Lymphocytes % (Manual) % Monocytes % (Manual) % Eosinophils % (Manual) % Neutrophils # (Manual) (1.4-6.5) K/uL Total Absolute Neuts (1.4-6.5) K/uL Lymphocytes # (Manual) (1.2-3.4) K/uL Total Abs Lymphocytes (1.2-3.4) K/uL Monocytes # (Manual) (0.11-0.59) K/uL Eosinophils # (Manual) (0-0.5) K/uL Platelet Estimate (Normal) Polychromasia Poikilocytosis Peripher Smr Path Cons Sodium (136-145) mmol/L Potassium (3.5-5.1) mmol/L Chloride (98-107) mmol/L Carbon Dioxide (21-32) mmol/L Anion Gap (3-11) BUN (7-18) mg/dl Creatinine (0.6-1.4) mg/dl Est Cr Clr Drug Dosing ml/min Est GFR ( Amer) ml/min Est GFR (Non-Af Amer) ml/min BUN/Creatinine Ratio (10-20) Glucose (70-99) mg/dl POC Glucose 148 H 229 H 121 H (70-99) mg/dl Calcium (8.5-10.1) mg/dl Magnesium (1.8-2.4) mg/dl 11/30/20 11/30/20 11/29/20 Range/Units 06:33 06:33 20:31 WBC 6.18 (4.8-10.8) K/uL RBC 2.92 L (4.7-6.1) M/uL Hgb 8.7 L (14.0-18.0) g/dL Hct 27.6 L (42-52) % MCV 94.5 (80-100) fL MCH 29.8 (25-34) pg MCHC 31.5 L (32-36) g/dL RDW Std Deviation 51.8 H (36.4-46.3) fL RDW Coeff of Leeanna 15.5 H (11.5-14.5) % Plt Count 95 L (130-400) K/uL Absolute Nucleated RBC 8.39 H (0-0) K/uL Nucleated RBC % (auto) 135.7 % Neutrophils % (Manual) 60.5 % Lymphocytes % (Manual) 23.5 % Monocytes % (Manual) 11.1 % Eosinophils % (Manual) 4.9 % Neutrophils # (Manual) 3.74 (1.4-6.5) K/uL Total Absolute Neuts 3.74 (1.4-6.5) K/uL Lymphocytes # (Manual) 1.45 (1.2-3.4) K/uL Total Abs Lymphocytes 1.45 (1.2-3.4) K/uL Monocytes # (Manual) 0.69 H (0.11-0.59) K/uL Eosinophils # (Manual) 0.30 (0-0.5) K/uL Platelet Estimate Decreased L (Normal) Polychromasia 1+ Poikilocytosis Present Peripher Smr Path Cons Sodium 137 (136-145) mmol/L Potassium 3.8 (3.5-5.1) mmol/L Chloride 103 (98-107) mmol/L Carbon Dioxide 26 (21-32) mmol/L Anion Gap 8.0 (3-11) BUN 34 H (7-18) mg/dl Creatinine 1.43 H (0.6-1.4) mg/dl Est Cr Clr Drug Dosing 35.4 ml/min Est GFR ( Amer) 50.3 ml/min Est GFR (Non-Af Amer) 43.4 ml/min BUN/Creatinine Ratio 23.8 H (10-20) Glucose 111 H (70-99) mg/dl POC Glucose 165 H (70-99) mg/dl Calcium 8.5 (8.5-10.1) mg/dl Magnesium 2.2 (1.8-2.4) mg/dl 11/28/20 Range/Units 06:46 WBC (4.8-10.8) K/uL RBC (4.7-6.1) M/uL Hgb (14.0-18.0) g/dL Hct (42-52) % MCV (80-100) fL MCH (25-34) pg MCHC (32-36) g/dL RDW Std Deviation (36.4-46.3) fL RDW Coeff of Leeanna (11.5-14.5) % Plt Count (130-400) K/uL Absolute Nucleated RBC (0-0) K/uL Nucleated RBC % (auto) % Neutrophils % (Manual) % Lymphocytes % (Manual) % Monocytes % (Manual) % Eosinophils % (Manual) % Neutrophils # (Manual) (1.4-6.5) K/uL Total Absolute Neuts (1.4-6.5) K/uL Lymphocytes # (Manual) (1.2-3.4) K/uL Total Abs Lymphocytes (1.2-3.4) K/uL Monocytes # (Manual) (0.11-0.59) K/uL Eosinophils # (Manual) (0-0.5) K/uL Platelet Estimate (Normal) Polychromasia Poikilocytosis Peripher Smr Path Cons Sodium (136-145) mmol/L Potassium (3.5-5.1) mmol/L Chloride (98-107) mmol/L Carbon Dioxide (21-32) mmol/L Anion Gap (3-11) BUN (7-18) mg/dl Creatinine (0.6-1.4) mg/dl Est Cr Clr Drug Dosing ml/min Est GFR ( Amer) ml/min Est GFR (Non-Af Amer) ml/min BUN/Creatinine Ratio (10-20) Glucose (70-99) mg/dl POC Glucose (70-99) mg/dl Calcium (8.5-10.1) mg/dl Magnesium (1.8-2.4) mg/dl Medications Administered Current Inpatient Medications Acetaminophen (Acetaminophen 325 Mg Tab) 650 mg PO Q6 [facility] Stop: 12/27/20 17:59 Last Admin: 11/30/20 13:14 Dose: Not Given Documented by: Apixaban (Apixaban 2.5 Mg Tab) 2.5 mg PO BID [facility] Stop: 12/28/20 20:59 Last Admin: 11/30/20 09:00 Dose: 2.5 mg Documented by: Atorvastatin Calcium (Atorvastatin 40 Mg Tab) 80 mg PO QAM [facility] Stop: 12/28/20 08:59 Last Admin: 11/30/20 09:00 Dose: 80 mg Documented by: Cyanocobalamin (Cyanocobalamin 500 Mcg Tablet (Vitamin B-12)) 500 mcg PO QAM [facility] Stop: 12/28/20 08:59 Last Admin: 11/30/20 09:00 Dose: 500 mcg Documented by: Dextrose (Dextrose 50% 50 Ml Syringe) 25 - 50 ml IV UD PRN; Protocol PRN Reason: Hypoglycemia Protocol Stop: 12/27/20 22:08 Epoetin Andrzej (Epoetin Andrzej 40,000 Units/Ml Vial) 40,000 units SQ Mo@0900 [facility] Stop: 12/30/20 14:29 Last Admin: 11/30/20 15:58 Dose: 40,000 units Documented by: Finasteride (Finasteride 5 Mg Tab) 5 mg PO HS [facility] Stop: 12/27/20 22:29 Last Admin: 11/29/20 20:40 Dose: 5 mg Documented by: Glucagon (Glucagon For Inj 1 Mg Vial) 1 mg SQ UD PRN; Protocol PRN Reason: Hypoglycemia Protocol Stop: 12/27/20 22:08 Glucose (Glucose 10 Tabs/Tube) 4 - 8 tabs PO UD PRN; Protocol PRN Reason: Hypoglycemia Protocol Stop: 12/27/20 22:08 Glucose (Glucose 40% Gel 15 Gm Tube) 15 - 30 gm PO UD PRN; Protocol PRN Reason: Hypoglycemia Protocol Stop: 12/27/20 22:08 Furosemide 40 mg/ Syringe 4 mls @ 4 mls/min IV DAILY [facility] Stop: 12/28/20 10:29 Last Admin: 11/30/20 09:00 Dose: 4 mls/min Documented by: Insulin Aspart (Insulin Aspart 100 Units/Ml 3 Ml Pen) 0 units SC ACHS [facility] Stop: 12/27/20 22:29 Last Admin: 11/30/20 13:10 Dose: 5 units Documented by: Lidocaine (Lidocaine 5% 1 Patch) 1 patch TD Q24H [facility] Stop: 12/27/20 22:59 Last Admin: 11/29/20 22:46 Dose: 1 patch Documented by: Metoprolol Succinate (Metoprolol Succ 50mg Ext Rel Tab) 50 mg PO BID [facility] Stop: 12/27/20 22:29 Last Admin: 11/30/20 09:00 Dose: 50 mg Documented by: Mirabegron (Mirabegron Er 25 Mg Tab) 25 mg PO HS [facility] Stop: 12/27/20 22:29 Last Admin: 11/29/20 20:37 Dose: 25 mg Documented by: Miscellaneous (Remove Lidoderm Patch) 1 ea N/A Q24H [facility] Stop: 12/28/20 10:59 Last Admin: 11/30/20 13:12 Dose: 1 ea Documented by: Miscellaneous (Carbohydrates For Hypoglycemia ) 15 - 30 gm PO UD PRN PRN Reason: Hypoglycemia Protocol Stop: 12/27/20 22:08 Pantoprazole Sodium ([facility] 40 Mg Tab) [facility]: 12/28/20 06:29 Last Admin: 11/30/20 06:02 Dose: 40 mg Documented by: Quetiapine Fumarate (Quetiapine Fumarate 25 Mg Tablet) 25 mg PO [facility] Stop: 12/27/20 22:29 Last Admin: 11/29/20 20:40 Dose: 25 mg Documented by: Sertraline HCl (Sertraline Hcl 100 Mg Tablet) [facility] [place] [facility] [place]: 12/28/20 08:59 Last Admin: 11/30/20 09:00 Dose: 100 mg Documented by: Tamsulosin HCl (Tamsulosin Hcl 0.4 Mg Cap) 0.4 mg PO [facility] Stop: 12/27/20 22:29 Last Admin: 11/29/20 20:37 Dose: 0.4 mg Documented by: Thiamine HCl (Thiamine Hcl 100 Mg Tab) 100 [facility] [place] [facility] [place]: 12/28/20 08:59 Last Admin: 11/30/20 09:00 Dose: 100 mg Documented by: Umeclidinium/Vilanterol (Umeclidinium/Vilanterol 62.5/25mcg 7 Puffs/Inhaler) 1 puffs [facility] Stop: 12/28/20 08:59 Last Admin: 11/30/20 08:59 Dose: 1 puffs Documented by: Resident Activity Tracking Resident Involvement: Resident Care Provided Care Provided: Adult Hospital Medicine (1) Fall Encounter type: initial encounter Qualified Code(s): W19.XXXA - Unspecified fall, initial encounter
[2020-11-30] MEDS: UMECLIDINIUM/VILANTEROL 62.5/25MCG 7 PUFFS/INHALER INH SCH (08:59)
[2020-11-30] MEDS: FUROSEMIDE 40 MG in SYRINGE 0 ML IV SCH (09:00)
[2020-11-30] MEDS: ATORVASTATIN 40 MG TAB PO SCH (09:00)
[2020-11-30] MEDS: CYANOCOBALAMIN 500 MCG TABLET (VITAMIN B-12) PO SCH (09:00)
[2020-11-30] MEDS: APIXABAN 2.5 MG TAB PO SCH ×2 (09:00→20:48)
[2020-11-30] MEDS: INSULIN ASPART 100 UNITS/ML 3 ML PEN SC SCH ×4 (09:00→21:38)
[2020-11-30] MEDS: METOPROLOL SUCC 50MG EXT REL TAB PO SCH ×2 (09:00→20:54)
[2020-11-30] MEDS: SERTRALINE HCL 100 MG TABLET PO SCH (09:00)
[2020-11-30] MEDS: THIAMINE HCL 100 MG TAB PO SCH (09:00)
[2020-11-30] MEDS ORDERED: EPOETIN ALFA 40,000 UNITS/ML VIAL SQ SCH (14:30)
[2020-11-30] MEDS: MIRABEGRON ER 25 MG TAB PO SCH (20:49)
[2020-11-30] MEDS: FINASTERIDE 5 MG TAB PO SCH (20:49)
[2020-11-30] MEDS: QUEtiapine FUMARATE 25 MG TABLET PO SCH (20:50)
[2020-11-30] MEDS: TAMSULOSIN HCL 0.4 MG CAP PO SCH (20:51)
[2020-11-30] MEDS: LIDOCAINE 5% 1 PATCH TD SCH (23:31)
[2020-12-01] MEDS: PANTOprazole 40 MG TAB PO SCH (05:34)
[2020-12-01] MEDS: ACETAMINOPHEN 325 MG TAB PO SCH ×2 (05:34→12:44)
[2020-12-01 07:55] LABS: BUN Creatinine Ratio 27.1 (10-20); Calcium 8.7 mg/dl (8.5-10.1); Creatinine Clr Calc Pharmacy 37.2 ml/min; Est GFR (African American) 53.5 ml/min; Est GFR (Non-African American) 46.1 ml/min; Potassium 3.6 mmol/L (3.5-5.1)
[2020-12-01 08:05] LABS: Hematocrit (blood only) 28.1 % (42-52); Hemoglobin 8.9 g/dL (14.0-18.0); Mean Corpuscular Hemoglobin 30.2 pg (25-34); Mean Corpuscular Hgb Conc 31.7 g/dL (32-36); Mean Corpuscular Volume 95.3 fL (80-100); Nucleated RBC # (auto) 7.18 K/uL (0-0); Nucleated RBC % (auto) 114.7 %; Platelet Count 91 K/uL (130-400); RDW Coefficient of Variation 15.6 % (11.5-14.5); RDW Standard Deviation 51.5 fL (36.4-46.3); Red Blood Count 2.95 M/uL (4.7-6.1); White Blood Count 6.26 K/uL (4.8-10.8)
[2020-12-01 08:06] LABS: Platelet Estimate Decreased (Normal)
[2020-12-01] MEDS: METOPROLOL SUCC 50MG EXT REL TAB PO SCH (08:52)
[2020-12-01] MEDS: THIAMINE HCL 100 MG TAB PO SCH (08:52)
[2020-12-01] MEDS: ATORVASTATIN 40 MG TAB PO SCH (08:52)
[2020-12-01] MEDS: UMECLIDINIUM/VILANTEROL 62.5/25MCG 7 PUFFS/INHALER INH SCH (08:52)
[2020-12-01] MEDS: APIXABAN 2.5 MG TAB PO SCH (08:52)
[2020-12-01] MEDS: CYANOCOBALAMIN 500 MCG TABLET (VITAMIN B-12) PO SCH (08:52)
[2020-12-01] MEDS: INSULIN ASPART 100 UNITS/ML 3 ML PEN SC SCH ×2 (08:53→12:45)
[2020-12-01] MEDS: SERTRALINE HCL 100 MG TABLET PO SCH (08:54)
--- NOTE | 2020-12-01 10:22 | Hospitalist Progress Note ---
Date of Service December 01, 2020 Assessment & Plan (1) Fall: Plan: 89 yo M with PMH of COVID, pancytopenia, COPD, chronic pleural effusions, CAD s/p CABG, paroxysmal Afib on Eliquis diagnosed last month after hospitalization for weakness and discharge to rehab, multiple falls now admitted after another mechanical fall 1) Fall - Associated chest wall contusion, healing rib fractures from previous falls per imaging - CT head negative fractures, bleeding, CT spine negative acute trauma, demonstrating chronic fractures and degenerative changes - Pain control- Tylenol, oxycontin 5mg PO q6hr prn, morphine 2mg IV q4 PRN, lidoderm patch - Incentive spirometry- frequent use encouraged - PT/OT ongoing, recommends inpatient rehab - Case management contacting [facility], pt would also benefit from home health services for long-term 2) Pleural effusions sec Acute on chronic diastolic CHF, POA - Chronic b/l effusions R > L, acutely enlarged. Likely due to combination of fall trauma causing extravasation of blood/fluid into pleural space, possibly some contribution from fluid retention 2/2 CKD/HF, oncotic component from protein malnutrition. - Pulmonary consult 11/28- likely due to fluid overload CHF, encouraged diuresis, offered thoracentesis, patient refused. - On Lasix 40 mg IV daily. Considering rising creatinine - hold lasix. Patient has been asymptomatic. Weight has been his stable usual weight. Will follow. 3) Paroxysmal atrial fibrillation -Admission EKG consistent with atrial flutter - Currently rate controlled- continue metoprolol - Eliquis 2.5 mg BID restarted 11/28 4) Anxiety and depression: - Continue seroquel and sertraline 5) Coronary artery disease: - Continue atorvastatin, metoprolol 6) Hypertension: - Adequately controlled with metoprolol at this time 7) Chronic kidney disease, stage 4 (severe): - Baseline BUN in 30s, Cr 1.5-2. Currently BUN 34<--28, Creat 1.43<--1.2 - Received LR 1 L in ED - Trend daily BMP 8) Diabetes: - novolog 9) Pancytopenia - Chronic issue concerning for possible myelodysplastic syndrome, following with outpatient oncologist Dr. Angel - Peripheral smear pathology consistent with myelodysplastic syndrome - Patient usually on Retacrit 40,000 every Monday, was placed on Procrit 40,000 which is biosimilar 10) COPD - continue anoro ellipta 11) BPH -continue finasteride, mirabegron, flomax Diet: regular DVT ppx: Eliquis Dispo: [facility] Admission and Anticipated Discharge Date Admission Date: November 27, 2020 Results & Data Results [facility] ([facility]) Vital Signs (Past 12 Hours) Vital Signs Temp Pulse Resp BP BP Pulse Ox 12/01/20 07:48 36.0 C L 88 16 123/63 93 11/30/20 23:16 36.9 C 89 17 107/56 L 94 Resident Activity Tracking Resident Involvement: Resident Care Provided Care Provided: Adult Hospital Medicine (1) Fall Encounter type: initial encounter Qualified Code(s): W19.XXXA - Unspecified fall, initial encounter
[2020-12-01] MEDS ORDERED: PROCHLORPERAZINE MALEATE 5 MG TAB PO PRN (11:59)
[2020-12-01] MEDS ORDERED: FAMOTIDINE 20 MG TAB PO SCH (12:15)
--- NOTE | 2020-12-01 12:51 | Discharge Summary ---
Date of Service December 01, 2020 Admission HPI Per Admitting Provider 89 YOM with past medical history of: COVID, Pancytopenia, falls, splenic laceration post fall requiring removal of spleen, paroxysmal Afib on Eliquis, BPH, DMII, ? myelodysplastic syndrome, rib fractures, anxiety/depression, COPD, CAD with CABG. Patient comes to the emergency room today after falling while letting his dog out. He reports he fell while opening the door on to his right back and side, and could not get up. He is mostly complaining of lower rib/back pain. The patient is very hard of hearing and most communication was done with me writing and him replying. The patient has history of falls requiring hospitalization and following last admission he did recover [facility] and currently lives at home. In the EMD the patient has had CT of the head, chest, abdomen and pelvis and cervical spine CT. He is known to have chronic left pleural effusion and small right pleural effusions. No acute findings were noted on these imaging other than worsening of right sided pleural effusion. Patient denies any changes in his breathing status and denies any fevers or chills or worsening of his cough. Denies any chest pain or discomfort. Patient was given 50mcg of Fentanyl in the EMD for pain control, but patient remains in some moderate discomfort. Patient will be admitted for pain control, IVF for mild increase in BUN and dry mucous membranes, Follow up on his CBC differentials, PT/OT evaluation and evaluation for rehab vs. return to home. Patient states now that he would likely need some assistance. Did talk to the patient's daughter who lives with him and helps take care of him at home. She endorses that he is having a difficult time getting around his house with his walker and is mostly dependant on wheel chair. He has also been having difficulty with going up and down his steps at home due to weakness and imbalance. She would favor rehab placement if this would help him. She was also updated on my discussion with patient regarding code status: patient was previously DNR/DNI. We (patient and I) discussed if his heart would stop would he want CPR and if he would have trouble breathing and/or his heart would stop would he want intubated and placed on a ventilator to keep him alive. He replied if I don't get that I will right? I stated "yes" and he said "he was not ready to ". For his abnormal CBC he has been following up with Dr. Heller's office for Epogen injections and received a "blood" transfusion last week. Patient has received his COVID vaccine as well as previous COVID. His COVID test on admission is:pending at the time of this documentation. Admission Exam Per Admitting Provider General: awake, alert, no apparent distress Head: Normocephalic, atraumatic, no tender areas to scalp/head ENT: PERRL, EOMI, no pharyngeal exudate, mucous membranes dry Neuro: AAO x 3, speech clear and appropriate, strength intact bilaterally 5/5, sensation intact and equal all extremities and dermatomes, no pronator drift Chest: equal rise and fall of the chest, no accessory muscle use, no heaves or thrills, scattered wheeze and rhonchi throughout, on room air, Cardiac: irregular rate and rhythm, telemetry reviewed- afib/aflutter, skin warm dry, cap refill <3 seconds, peripheral pulses +2 no JVD, no murmur, no edema GI: NABS x 4 quadrants, soft, nontender to palpation, no rebound, guarding or tenderness : Spontaneously voiding, no pain, no CVA tenderness, MSK: pain to palpation last rib on the right side back and flank Psych: Normal mood and affect Skin: no rash or erythema Principal Diagnosis Mechanical Fall, weakness Discharge Exam General: Well appearing, age appropriate Heart: atrial fibrillation Lungs: cta b/l, no wheezes/rales/rhonchi Abd: soft, NT/ND, +BS Extremities: no swelling, no rashes Discharge Data Allergies Allergy/AdvReac Type Severity Reaction Status Date / Time cefuroxime Allergy Intermediate Hives Verified 11/27/20 16:22 Penicillins Allergy Mild Hives Verified 11/27/20 16:22 olanzapine AdvReac Intermediate Hallucinations, Verified 11/27/20 16:22 confusion and panic Consultations 11/27/20 22:09 Consult Pulmonology Routine Ordered Studies 11/27/20 14:01 CT abd pelvis IV con only Stat CT cervical spine wo con Stat CT chest diagnostic w con Stat CT head/brain wo con Stat Hospital Course (1) Fall: 89 yo M with PMH of COVID, pancytopenia, COPD, chronic pleural effusions, CAD s/p CABG, paroxysmal Afib on Eliquis diagnosed last month after hospitalization for weakness and discharge to rehab, multiple falls now admitted after another mechanical fall 1) Fall Mechanical fall with associated chest wall contusion, imaging shows healing rib fractures from previous falls. CT head negative for fractures, bleeding, CT spine negative for acute trauma, demonstrates chronic fractures and degenerative changes. Patient's pain has been adequately controlled with tylenol and lidoderm patch. Patient received PT/OT in hospital tolerating well, recommends inpatient rehab to improve strength and balance. Patient would also benefit from home health services for long-term. 2) Pleural effusions sec to Acute on chronic diastolic CHF present on admission/malnutrition Imaging found chronic b/l effusions R > L, acutely enlarged. Likely due to combination of fall trauma causing extravasation of blood/fluid into pleural space, possibly some contribution from fluid retention 2/2 CKD/HF, oncotic component from protein malnutrition. Pulmonary consult 11/28, state it is likely due to fluid overload CHF, encouraged diuresis, offered thoracentesis, patient refused. Patient was placed on IV lasix. Noted rise in creatinine with no significant diuresis as per I and O and weight loss. Lasix discontinued 12/01. Patient has been asymptomatic. Weight has been his stable usual home weight. No respiratory compromise noted through hospital stay. Suspect malnutrition being a major contributor to pleural effusion. Encourage higher protein diet. Discharged home with no diuretics. 3) Paroxysmal atrial fibrillation Admission EKG consistent with atrial flutter. Currently rate controlled- continue metoprolol, eliquis 4) Malnutrition His albumin is 2.5. Please have him continue vitamin B12 and B1. Consider dietary consult and encourage high protein diet. 4) Anxiety and depression: Continue seroquel and sertraline 5) Coronary artery disease: Continue atorvastatin, metoprolol 6) Hypertension: Continue metoprolol 7) Chronic kidney disease, stage 4 (severe): He recieved 1L LR in ED. Baseline BUN in 30s, Cr 1.5-2. BUN was elevated 37, lasix discontinued, please continue to trend. 8) Diabetes: Continue glipizide 9) Pancytopenia Chronic issue concerning for possible myelodysplastic syndrome, following with outpatient oncologist Dr. Angel. Patient usually on Retacrit 40,000 every Monday, was placed on Procrit 40,000 which is biosimilar in hospital. 10) COPD Continue anoro ellipta 11) BPH Continue finasteride, mirabegron, flomax Total Time Total Time Spent Total Time Spent (In Minutes): See attending attestation Discharge Plan Discharge Items Patient Disposition: Transfer Inpatient Rehab Fac Reason For Visit: Fall Discharge Diagnosis: Mechanical fall, weakness Condition on Discharge: Good Activity: Resume your previous activity Non-emergency contact: Primary Care Provider Call non-emergency contact if: your symptoms worsen Follow-up/Referrals: Vinh Montano, [Primary Care Provider] - Diet: Regular and Carb Consistent or DM2 Addtl Attending Provider Instructions: 89 yo M with PMH of COVID, pancytopenia, COPD, chronic pleural effusions, CAD s/p CABG, paroxysmal Afib on Eliquis diagnosed last month after hospitalization for weakness and discharge to rehab, multiple falls now admitted after another mechanical fall 1) Fall Mechanical fall with associated chest wall contusion, imaging shows healing rib fractures from previous falls. CT head negative for fractures, bleeding, CT spine negative for acute trauma, demonstrates chronic fractures and degenerative changes. Patient's pain has been adequately controlled with tylenol and licoderm patch. Patient recieved PT/OT in hospital tolerating well, recommends inpatient rehab to improve strength and balance. Patient would also benefit from home health services for long-term. 2) Pleural effusions sec Acute on chronic diastolic CHF present on admission. Imaging found chronic b/l effusions R > L, acutely enlarged. Likely due to combination of fall trauma causing extravasation of blood/fluid into pleural space, possibly some contribution from fluid retention 2/2 CKD/HF, oncotic component from protein malnutrition. Pulmonary consult 11/28, state it is likely due to fluid overload CHF, encouraged diuresis, offered thoracentesis, patient refused. Patient was placed on IV lasix, tolerated well noted rising creatinine, lasix discontinued 12/01. Patient has been asymptomatic. Weight has been his stable usual weight. Will follow. 3) Paroxysmal atrial fibrillation Admission EKG consistent with atrial flutter. Currently rate controlled- continue metoprolol, eliquis 4) Malnutrition His albumin is 2.5. Please have him continue vitamin B12 and B1. 4) Anxiety and depression: Continue seroquel and sertraline 5) Coronary artery disease: Continue atorvastatin, metoprolol 6) Hypertension: Continue metoprolol 7) Chronic kidney disease, stage 4 (severe): He recieved 1L LR in ED. Baseline BUN in 30s, Cr 1.5-2. BUN was elevated 37, lasix discontinued, please continue to trend. 8) Diabetes: Continue glipizide 9) Pancytopenia Chronic issue concerning for possible myelodysplastic syndrome, following with outpatient oncologist Dr. Angel. Patient usually on Retacrit 40,000 every Monday, was placed on Procrit 40,000 which is biosimilar in hospital. 10) COPD Continue anoro ellipta 11) BPH Continue finasteride, mirabegron, flomax Pending Studies at Discharge: No Stand-Alone Forms: My [facility] Skilled Items Patient informed of condition?: Yes DNR: Yes Discharge Level of Care: Acute rehab Communicable Disease: No Discharge Prognosis: Stable Lines: None Urinary Catheter: No Medications and DC Order Prescriptions: Continued finasteride 5 mg tablet 5 mg PO HS Qty: 90 RF: 3 glipizide 5 mg tablet 10 mg PO QAM RF: 0 sertraline 100 mg tablet 100 mg PO QAM RF: 0 hydroxyzine HCl 10 mg tablet 10 mg PO DIRECTED PRN (Reason: panic attacks) RF: 0 tamsulosin 0.4 mg capsule 0.4 mg PO HS RF: 0 Anoro Ellipta 62.5-25 mcg/actuation blister with device 1 puffs INH QAM RF: 0 thiamine HCl (vitamin B1) [Vitamin B-1] 100 mg Tablet 100 mg PO QAM RF: 0 cyanocobalamin (vitamin B-12) [Vitamin B-12] 500 mcg Tablet 500 mcg PO QAM RF: 0 PreserVision AREDS [id number] Capsule 1 cap PO AMHS RF: 0 atorvastatin 80 mg Tablet 80 mg PO QAM RF: 0 pantoprazole 40 mg Tablet,Delayed Release (Dr/Ec) 40 mg PO DAILYBB RF: 0 Myrbetriq 25 mg Tablet Extended Release 24 Hr 25 mg PO HS RF: 0 quetiapine [Seroquel] 25 mg Tablet 25 mg PO HS RF: 0 Eliquis 2.5 mg tablet 2.5 mg PO BID RF: 0 Retacrit 40,000 unit/mL Solution 40,000 unit subcut WK RF: 0 metoprolol succinate 50 mg tablet extended release 24 hr 50 mg PO BID RF: 0 Discharge Orders: Discharge Order (Routine); Ordered 12/01/20 Ordered By: Neha Cui/Other Patient Handouts: High Blood Sugar (Hyperglycemia), Hypoglycemia (Low Blood Sugar), Managing Type 2 Diabetes Admission Data Admit Date/Time: 11/27/20 18:00 Attending Provider: Monica Harris Admit Provider: Rudy Reveles Primary Care Provider: Vinh Montano Other Providers: Bryon Bang ; Rudy Reveles ; [facility] Other Interventions: Discharge Summary Assessment (RN) Last Done: 12/01/20 13:49 Supervising Physician Co-Signing Physician Notes Resident Physician Supervision Note: I independently interviewed and examined the patient and verified the hillman history and physical, reviewed labs and image studies and agree with resident Dr. Arce findings and care plan. Resident Activity Tracking Resident Involvement: Resident Care Provided Care Provided: Adult Hospital Medicine
--- NOTE | 2020-12-07 08:38 | Coding Query ---
CODING QUERY To promote full compliance with coding requirements relating to patient care, provider participation is requested in all cases of equipment technician uncertainty. Please assist us with the question(s) below: Coding Question(s): Moderate Protein Malnutrition is documented on 11/28 progress note. Malnutrition, NOS is documented on discharge. Please clarify patient's condition below: ( x) Moderate Protein Malnutrition ( ) Malnutrition, NOS ( ) Other Please Explain: Thank you Alton Gray Principal Diagnosis: "that condition established after study, to be chiefly responsible for occasioning the admission of the patient to the hospital for care." Co-Existing Principal Diagnosis: "when two or more diagnoses equally meet the criteria for principal diagnosis as determined by the circumstances of admission, diagnostic work up, and/or therapy provided, and the Alphabetic Index, Tabular List, or another coding guideline does not provide sequencing direction, any one of the diagnoses may be sequenced first." "When the physician has documented what appears to be a current diagnosis in the body of the record, but has not included the diagnosis in the final diagnostic statement, the physician should be asked whether the diagnosis should be added." (Source [facility] 2 QTR90. p3-4) SUSANNA
--- NOTE | 2020-12-22 06:22 | Coding Query ---
CODING QUERY To promote full compliance with coding requirements relating to patient care, provider participation is requested in all cases of carbon rod inserter uncertainty. Please assist us with the question(s) below: Coding Question(s): Documentation states patient admitted for pain control, IVF for mild increase in BUN and dry mucous membranes. Treatment consisted of Tylenol, Oxycontin, Morphine, and Lidoderm Patch. Please clarify type of pain below: (x ) Acute ( ) Chronic ( ) Other Please Explain: Thank you Alton Gray Principal Diagnosis: "that condition established after study, to be chiefly responsible for occasioning the admission of the patient to the hospital for care." Co-Existing Principal Diagnosis: "when two or more diagnoses equally meet the criteria for principal diagnosis as determined by the circumstances of admission, diagnostic work up, and/or therapy provided, and the Alphabetic Index, Tabular List, or another coding guideline does not provide sequencing direction, any one of the diagnoses may be sequenced first." "When the physician has documented what appears to be a current diagnosis in the body of the record, but has not included the diagnosis in the final diagnostic statement, the physician should be asked whether the diagnosis should be added." (Source Coding [facility] 2 QTR90. p3-4) SUSANNA
== END 2020-12-01 15:23 | DRG 947 ==
LOC: ED 13:52 → SUATTDRO 18:00 → 3N 18:00
DX: N18.4 Chronic kidney disease, stage 4 (severe); D63.1 Anemia in chronic kidney disease; Z88.1 Allergy status to other antibiotic agents; K21.9 Gastro-esophageal reflux disease without esophagitis; Y93.89 Activity, other specified; F32.9 Major depressive disorder, single episode, unspecified; I50.33 Acute on chronic diastolic (congestive) heart failure; D46.9 Myelodysplastic syndrome, unspecified; Z88.0 Allergy status to penicillin; Z86.16 Personal history of COVID-19; F03.90 Unspecified dementia, unspecified severity, without behavioral disturbance, psychotic disturbance, mood disturbance, and anxiety; E11.22 Type 2 diabetes mellitus with diabetic chronic kidney disease; I13.0 Hypertensive heart and chronic kidney disease with heart failure and stage 1 through stage 4 chronic kidney disease, or unspecified chronic kidney disease; J44.9 Chronic obstructive pulmonary disease, unspecified; S22.42XD Multiple fractures of ribs, left side, subsequent encounter for fracture with routine healing; W10.9XXA Fall (on) (from) unspecified stairs and steps, initial encounter; Z79.84 Long term (current) use of oral hypoglycemic drugs; E44.0 Moderate protein-calorie malnutrition; D61.818 Other pancytopenia; Z95.1 Presence of aortocoronary bypass graft; Z79.899 Other long term (current) drug therapy; Z66 Do not resuscitate; N40.0 Benign prostatic hyperplasia without lower urinary tract symptoms; S20.211A Contusion of right front wall of thorax, initial encounter; X58.XXXD Exposure to other specified factors, subsequent encounter; Z91.81 History of falling; I48.0 Paroxysmal atrial fibrillation; Y99.8 Other external cause status; G89.11 Acute pain due to trauma; Z88.8 Allergy status to other drugs, medicaments and biological substances; F41.9 Anxiety disorder, unspecified; E78.5 Hyperlipidemia, unspecified; I25.10 Atherosclerotic heart disease of native coronary artery without angina pectoris